=== PATIENT | female | born 1965 | race Caucasian/White ===

== ENCOUNTER 2017-07-11 15:41 | Inpatient (IN) | payer OTHER, MEDICARE ==
[~2017-07-11] VITALS: Ht 167.6 cm; Wt 86.5 kg
[~2017-07-11 15:41] MED LIST: AMBI5TAB PO; Aquaphor Oint TOPICAL; FAMO20TA2 PO; HALO5TAB PO; Lactic Acid 12% Lotion TOPICAL; PALI156P IM
[2017-07-11 20:41] VITALS: BP 133/69; PULSE 100; RESP 17; TEMP 98.7; O2SAT 96
[2017-07-11] MEDS ORDERED: LORazepam 2 MG/ML VIAL IM PRN (21:15)
[2017-07-11] MEDS ORDERED: MAGNESIUM HYDROXIDE SUSP 30 ML CUP PO PRN (21:15)
[2017-07-11] MEDS ORDERED: BENZTROPINE MESYLATE 1 MG TAB PO PRN (21:15)
[2017-07-11] MEDS ORDERED: BENZTROPINE MESYLATE 2 MG/2 ML VIAL IM PRN (21:15)
[2017-07-11] MEDS ORDERED: FAMOTIDINE 20 MG TAB PO SCH (21:15)
[2017-07-11] MEDS ORDERED: PILL SPLITTER OTHER PRN (21:30)
[2017-07-11] MEDS: ENOXAPARIN SODIUM 100 MG/ML SYRINGE SQ SCH (23:42)
[2017-07-12 05:31] VITALS: BP 125/60; PULSE 89; RESP 16; TEMP 98.1; O2SAT 97
[2017-07-12 07:13] LABS: ALBUMIN 2.8 GM/DL (3.4-5.0); AST (GOT) 16 U/L (15-37); BICARBONATE 29.2 MEQ/L (21.0-32.0); BLOOD UREA NITROGEN 5 MG/DL (7-18); CALCIUM 8.6 MG/DL (8.5-10.1); CHLORIDE 107 MEQ/L (98-107); CREATININE 0.44 MG/DL (0.50-1.00); GLOMERULAR FILTRATION RATE 151 ML/MIN (>89); GLUCOSE,RANDOM 95 MG/DL (74-106); SODIUM (NA) 140 MEQ/L (136-145)
[2017-07-12 07:15] LABS: ALT (GPT) 20 U/L (10-53); CHOLESTEROL 138 MG/DL (120-200); TRIGLYCERIDES 86 MG/DL (42-150)
[2017-07-12 07:17] LABS: ALKALINE PHOSPHATASE 49 U/L (45-117); CHOLESTEROL/ HDL RATIO 2.82 RATIO; HDL CHOLESTEROL 48.9 MG/DL (40.0-60.0); LDL CHOLESTEROL 72 MG/DL (0-99); TOTAL BILIRUBIN ADULT 0.7 MG/DL (0.2-1.0); TOTAL PROTEIN 6.1 GM/DL (6.4-8.2)
[2017-07-12 07:17] LABS: AUTOMATED NEUTROPHIL # 2.9 TH/MM3 (1.8-7.7); BASOPHIL % 0.4 % (0.0-2.0); EOSINOPHIL # 0.1 TH/MM3 (0-0.4); EOSINOPHIL % 1.8 % (0.0-4.0); HEMATOCRIT 33.4 % (35.0-46.0); HEMOGLOBIN 11.4 GM/DL (11.6-15.3); LYMPH % 25.9 % (9.0-44.0); LYMPHOCYTE # 1.1 TH/MM3 (1.0-4.8); MEAN CELL VOLUME 89.5 FL (80.0-100.0); MEAN CORPUSCULAR HEMOGLOBIN 30.5 PG (27.0-34.0); MEAN CORPUSCULAR HGB CONC 34.1 % (32.0-36.0); MEAN PLATELET VOLUME 8.4 FL (7.0-11.0); MONO % 5.5 % (0.0-8.0); MONOCYTE # 0.2 TH/MM3 (0-0.9); NEUT % 66.4 % (16.0-70.0); PLATELET COUNT 269 TH/MM3 (150-450); RED BLOOD COUNT 3.73 MIL/MM3 (4.00-5.30); RED CELL DISTRIBUTION WIDTH 14.7 % (11.6-17.2); WHITE BLOOD COUNT 4.4 TH/MM3 (4.0-11.0)
[2017-07-12] MEDS: HALOPERIDOL 5 MG TAB PO SCH ×2 (09:10→21:25)
[2017-07-12] MEDS: ENOXAPARIN SODIUM 100 MG/ML SYRINGE SQ SCH ×2 (09:23→21:26)
--- NOTE | 2017-07-12 09:50 | PD.CONS ---
HPI Service [facility] Hospitalists Consult Requested By Dr. Bryant. Reason for Consult Medical management Primary Care Physician Unknown Diagnoses: (1) Deep venous thrombosis of left upper extremity (2) Psychosis not due to substance or known physiological condition (3) HER2-positive carcinoma of right breast History of Present Illness 52-year-old female with a medical history significant for schizophrenia, right breast cancer undergoing chemotherapy treatment admitted to the med/psych unit for decompensation of psychiatric symptoms. Hospitalist service consulted for medical management. The patient is a very poor historian. Records extensively reviewed. Apparently she was admitted to [facility] for left upper extremity swelling. She was found to have a DVT and was started on Lovenox. They are reports that she was living at an [facility] but was also homeless for a few days prior to developing the swelling. The patient reports she has been getting treatment for the breast cancer and her next treatment is reportedly around 14 July. Patient is currently in the psychiatric unit. She is unable to add much to the history. She has pressured speech and appear to be in a manic state. Review of Systems ROS Limitations: Clinical Condition, Poor Historian Constitutional: DENIES: Fever, Chills Respiratory: DENIES: Cough, Shortness of breath Cardiovascular: DENIES: Chest pain, Palpitations Gastrointestinal: DENIES: Abdominal pain Musculoskeletal: COMPLAINS OF: Muscle aches Psychiatric: COMPLAINS OF: Mood changes Past Family Social History Allergies: Coded Allergies: No Known Allergies (Unverified , 05/25/17) Past Medical History Schizophrenia HER-2/shirley positive breast cancer on the right side Past Surgical History Breast mass biopsy Port placement Family History Unable to obtain Social History Patient reports that he smokes tobacco. Denies alcohol or illicit drug use. Physical Exam Vital Signs Vital Signs Date Time Temp Pulse Resp B/P (MAP) Pulse Ox O2 Delivery O2 Flow Rate FiO2 07/12/17 05:31 98.1 89 16 125/60 (81) 97 07/11/17 20:41 98.7 100 17 133/69 (90) 96 Physical Exam GENERAL: This is a well-nourished, well-developed patient, in no apparent distress. Pressure at speech SKIN: Multiple excoriation involving the left forearm. Cool and dry. HEAD: Atraumatic. Normocephalic. No temporal or scalp tenderness. EYES: Pupils equal round and reactive. Extraocular motions intact. No scleral icterus. No injection or drainage. ENT: Nose without bleeding, purulent drainage or septal hematoma. Throat without erythema, tonsillar hypertrophy or exudate. Uvula midline. Airway patent. NECK: Trachea midline. No JVD or lymphadenopathy. Supple, nontender, no meningeal signs. CARDIOVASCULAR: Regular rate and rhythm without murmurs, gallops, or rubs. RESPIRATORY: Clear to auscultation. Breath sounds equal bilaterally. No wheezes , rales, or rhonchi. GASTROINTESTINAL: Abdomen soft, non-tender, nondistended. No hepato-splenomegaly , or palpable masses. No guarding. MUSCULOSKELETAL: Extensive left upper extremity swelling. Neurovascularly intact at the hand. Range of motion at the elbow normal. No calf tenderness. Negative Homans sign bilaterally. NEUROLOGICAL: Awake and alert. Motor and sensory grossly within normal limits. Five out of 5 muscle strength in all muscle groups. Normal speech. PSYCH: Pressure speech. Laboratory Laboratory Tests Test 07/12/17 06:13 07/12/17 06:15 White Blood Count 4.4 Red Blood Count 3.73 Hemoglobin 11.4 Hematocrit 33.4 Mean Corpuscular Volume 89.5 Mean Corpuscular Hemoglobin 30.5 Mean Corpuscular Hemoglobin Concent 34.1 Red Cell Distribution Width 14.7 Platelet Count 269 Mean Platelet Volume 8.4 Neutrophils (%) (Auto) 66.4 Lymphocytes (%) (Auto) 25.9 Monocytes (%) (Auto) 5.5 Eosinophils (%) (Auto) 1.8 Basophils (%) (Auto) 0.4 Neutrophils # (Auto) 2.9 Lymphocytes # (Auto) 1.1 Monocytes # (Auto) 0.2 Eosinophils # (Auto) 0.1 Basophils # (Auto) 0.0 CBC Comment DIFF FINAL Differential Comment Blood Urea Nitrogen 5 Creatinine 0.44 Random Glucose 95 Total Protein 6.1 Albumin 2.8 Calcium Level 8.6 Alkaline Phosphatase 49 Aspartate Amino Transf (AST/SGOT) 16 Alanine Aminotransferase (ALT/SGPT) 20 Total Bilirubin 0.7 Sodium Level 140 Potassium Level 3.4 Chloride Level 107 Carbon Dioxide Level 29.2 Anion Gap 4 Estimat Glomerular Filtration Rate 151 Triglycerides Level 86 Cholesterol Level 138 LDL Cholesterol 72 HDL Cholesterol 48.9 Cholesterol/HDL Ratio 2.82 Result Diagram: 07/12/1713 07/12/1715 Assessment and Plan Problem List: (1) HER2-positive carcinoma of right breast ICD Code: C50.911 - Malignant neoplasm of unspecified site of right female breast (2) Deep venous thrombosis of left upper extremity ICD Code: I82.622 - Acute embolism and thrombosis of deep veins of left upper extremity (3) Psychosis not due to substance or known physiological condition ICD Code: F29 - Unspecified psychosis not due to a substance or known physiological condition Assessment and Plan 52-year-old female admitted to the med psych unit for psychosis and recent diagnosis of left upper extremity DVT in the setting of right breast cancer. Psychosis/schizophrenia: - Management per psychiatry DVT of left upper extremity: - Patient has been started on Lovenox 90 mg subcutaneous every 12 hours. - Consult hematology/oncology for further input. HER-2 positive carcinoma of the right breast: - Patient apparently has had a few cycle of chemotherapy. It is unclear if she has been follow-up as recommended. It is noted she was discharged from the hospital a couple of weeks ago. - Consult oncologist. Given her social situation, need to ensure she is getting her therapy accordingly. Hypokalemia: Mild. - Replace and monitor GI prophylaxis: Stool softener PRN constipation. DVT PPx: Lovenox We'll continue to follow. Michelle Tejada MD Jul 12, 2017 09:50
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
[2017-07-12] MEDS ORDERED: POTASSIUM CHLORIDE 20 MEQ CONTROLLED RELEASE TAB PO ONE (12:30)
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
[2017-07-12 16:16] LABS: HEMOGLOBIN A1C 5.8 % (4.3-6.0)
[2017-07-12 18:04] VITALS: BP 129/64; PULSE 99; RESP 18; TEMP 98.6; O2SAT 99
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
[2017-07-12] MEDS: ZOLPIDEM TARTRATE 5 MG TAB PO PRN (21:25)
[2017-07-13 06:16] VITALS: BP 119/60; PULSE 91; RESP 16; TEMP 98; O2SAT 96
[2017-07-13 06:59] LABS: HEMATOCRIT 35.1 % (35.0-46.0); HEMOGLOBIN 11.8 GM/DL (11.6-15.3); MEAN CELL VOLUME 89.9 FL (80.0-100.0); MEAN CORPUSCULAR HEMOGLOBIN 30.3 PG (27.0-34.0); MEAN CORPUSCULAR HGB CONC 33.7 % (32.0-36.0); MEAN PLATELET VOLUME 7.8 FL (7.0-11.0); PLATELET COUNT 278 TH/MM3 (150-450); RED BLOOD COUNT 3.91 MIL/MM3 (4.00-5.30); RED CELL DISTRIBUTION WIDTH 15.3 % (11.6-17.2); WHITE BLOOD COUNT 5.3 TH/MM3 (4.0-11.0)
[2017-07-13 07:24] LABS: BICARBONATE 26.9 MEQ/L (21.0-32.0); CALCIUM 8.6 MG/DL (8.5-10.1); CREATININE 0.41 MG/DL (0.50-1.00)
[2017-07-13] MEDS: HALOPERIDOL 5 MG TAB PO SCH ×2 (08:06→21:00)
--- NOTE | 2017-07-13 09:20 | HHI.PR ---
Subjective Remarks in no acute distress. complaining of pain to the left arm. no fever. Objective Vitals Vital Signs Date Time Temp Pulse Resp B/P (MAP) Pulse Ox O2 Delivery O2 Flow Rate FiO2 07/13/17 06:16 98.0 91 16 119/60 (79) 96 07/12/17 18:04 98.6 99 18 129/64 (85) 99 I/O 07/12/17 07/12/17 07/12/17 07/13/17 07/13/17 07/13/17 07:00 15:00 23:00 07:00 15:00 23:00 Intake Total 480 ml 1200 ml 0 ml 480 ml Balance 480 ml 1200 ml 0 ml 480 ml Intake Oral 480 ml 1200 ml 0 ml 480 ml # Voids 2 1 Result Diagram: 07/13/17 0625 07/13/17 0625 Objective Remarks GENERAL: This is a well-nourished, well-developed patient, in no apparent distress. CARDIOVASCULAR: Regular rate and regular rhythm without murmurs, gallops, or rubs. RESPIRATORY: Clear to auscultation. Breath sounds equal bilaterally. No wheezes , rales, or rhonchi. GASTROINTESTINAL: Abdomen soft, non-tender, nondistended. Normal, active bowel sounds MUSCULOSKELETAL: left arm is swollen/ right toe is with some erythema and tenderness NEURO: Alert & Oriented x4 to person, place, time, situation. Moves all ext x4 Medications and IVs Inpatient Medications Acetaminophen (Tylenol) 650 mg Q4H PRN PO Pain 1-5 or Temp >101F; Start at 21:15 Al Hydrox/Mg Hydrox/Simethicone (Mag-Al Plus Susp Liq) 30 ml Q6H PRN PO DYSPEPSIA; Start 07/11/17 at 21:15 Benztropine Mesylate (Cogentin Inj) 1 mg Q12H PRN IM EXTRA PYRAMIDAL SYMPTOMS; Start 07/11/17 at 21:15 Benztropine Mesylate (Cogentin) 1 mg Q12H PRN PO EXTRA PYRAMIDAL SYMPTOMS; Start 07/11/17 at 21:15 Enoxaparin Sodium (Lovenox Inj) 90 mg Q12H SQ Last administered on 07/12/17at 21 :26; Start 07/11/17 at 22:00 Famotidine (Pepcid) 20 mg ONCE PO ; Start 07/11/17 at 21:15; Stop 07/11/17 at 23 :59; Status DC Haloperidol (Haldol) 7.5 mg BID PO Last administered on 07/13/17at 08:06; Start 07/12/17 at 09:00 Lorazepam (Ativan Inj) 1 mg Q6H PRN IM MODERATE TO SEVERE ANXIETY; Start at 21:15 Lorazepam (Ativan) 1 mg Q6H PRN PO MODERATE TO SEVERE ANXIETY; Start 07/11/17 at 21:15 Magnesium Hydroxide (Milk Of Magnesia Liq) 30 ml DAILY PRN PO CONSTIPATION; Start 07/11/17 at 21:15 Miscellaneous (Pill Splitter) 1 ea UNSCH PRN OTHER SEE LABEL COMMENTS; Start at 21:30 Nicotine (Habitrol 21 Mg Patch.24 Hr) 1 patch DAILY PRN T-DERMAL nicotine craving; Start 07/11/17 at 21:15 Oxycodone/ Acetaminophen (Percocet 5-325 Mg) 1 tab Q6H PRN PO PAIN 6-10; Start 07/11/17 at 21:15 Potassium Chloride (KCl) 20 meq ONCE ONCE PO Last administered on 07/12/17at 12 :47; Start 07/12/17 at 12:30; Stop 07/12/17 at 12:31; Status DC Zolpidem Tartrate (Ambien) 5 mg HS PRN PO INSOMNIA Last administered on at 21:25; Start 07/11/17 at 21:15 A/P Problem List: (1) HER2-positive carcinoma of right breast ICD Code: C50.911 - Malignant neoplasm of unspecified site of right female breast (2) Deep venous thrombosis of left upper extremity ICD Code: I82.622 - Acute embolism and thrombosis of deep veins of left upper extremity (3) Psychosis not due to substance or known physiological condition ICD Code: F29 - Unspecified psychosis not due to a substance or known physiological condition Assessment and Plan Psychosis/schizophrenia: - Management per psychiatry DVT of left upper extremity: - Patient has been started on Lovenox 90 mg subcutaneous every 12 hours. - hematology consult appreciated; venous doppler of the left upper extremity pending. HER-2 positive carcinoma of the right breast: - Patient apparently has had a few cycle of chemotherapy. It is unclear if she has been follow-up as recommended. It is noted she was discharged from the hospital a couple of weeks ago. - oncology consult appreciated. mild cellulitis of the right great toe - strat Keflex and monitor the response. Hypokalemia:replaced. GI prophylaxis: Stool softener PRN constipation. DVT PPx: Lovenox Kailey Howard MD Jul 13, 2017 09:20
[2017-07-13] MEDS: ENOXAPARIN SODIUM 100 MG/ML SYRINGE SQ SCH ×2 (10:05→21:16)
--- NOTE | 2017-07-13 10:05 | RADRPT ---
EXAM DATE/TIME: 07/13/2017 09:19 [facility] COMPARISON: US ARM RIGHT, June 20, 2017, 21:27. INDICATIONS : Follow up size of enlarged lymph node post chemotherapy. MEDICAL HISTORY : Hearing loss. Anxiety. Right breast cancer. Chemotherapy. Psychosis. SURGICAL HISTORY : Jaw surgery. ENCOUNTER: Subsequent ACUITY: 3 weeks PAIN SCORE: 0/10 LOCATION: Right axilla. AREA EVALUATED: Right axilla. FINDINGS: A targeted ultrasound examination was performed in the right axilla and now demonstrates that the pat hologic lymph node measures 1.7 x 0.9 1.6 cm and is smaller in size than on the prior study where thi s measured 3.2 x 2.2 x 1.1 cm. Lymph node does not have a normal fatty hilum. CONCLUSION: Interval decrease in the size of the enlarged axillary lymph node. Jayden Brunner MD on July 13, 2017 at 10:01 Board Certified Radiologist. This report was verified electronically.
--- NOTE | 2017-07-13 10:11 | RADRPT ---
EXAM DATE/TIME: 07/13/2017 09:22 [facility] COMPARISON: No previous studies available for comparison. INDICATIONS : Left arm swelling. Prior DVT in left arm. MEDICAL HISTORY : Deep venous thrombosis. Hearing loss. Anxiety. Right breast cancer. Chemotherapy. Psychosis. SURGICAL HISTORY : Jaw surgery. ENCOUNTER: Initial ACUITY: 1 day PAIN SCORE: 0/10 LOCATION: Left arm. FINDINGS: Occlusive thrombus is present in the subclavian, axillary and proximal to distal basilic vein. This i s noncompressible and demonstrates no waveform. Edematous tissue is noted in the arm. The brachial an d cephalic veins are patent. The internal jugular vein is patent. CONCLUSION: Left upper extremity deep venous thrombosis.. Jayden Brunner MD on July 13, 2017 at 10:06 Board Certified Radiologist. This report was verified electronically.
--- NOTE | 2017-07-13 11:25 | HHI.PYPN ---
Subjective Remarks Patient seen for follow-up, chart reviewed. Discussion she staff reported the patient had ultrasound today of DVT of left arm and was compliant, patient scheduled for chemotherapy this Monday. Patient was found lying in hospital bed , cooperative. Patient noted to be somewhat [place] but was able to wake up and interact appropriately. Patient states that he is feeling "good" reports sleeping well, reports tolerating medications well. Patient noted to be able to engage in interview appropriately, noted with less pressured speech, denying any perceptual disturbances or delusions at this time. Patient states that her thought processes improving stating "I'm slowing down". Patient aware of upcoming treatment tomorrow for chemotherapy. Review of Systems Except as stated in HPI: all other systems reviewed are Neg Mental Status Examination Appearance: Appropriate Consciousness: Alert Orientation: Person, Place, Date/Time Motor Activity: Normal gait Speech: Pressured Language: Adequate Fund of Knowledge: Inadequate Attention and Concentration: Easily Distracted Memory: Impaired Mood: Irritable (SL today) Affect: Labile (SL today) Thought Process & Associations: Disorganized, Tangential Thought Content: Other (concrete) Hallucination Type: None Delusion Type: Bizarre Suicidal Ideation: No Suicidal Plan: No Suicidal Intention: No Homicidal Ideation: No Homicidal Plan: No Homicidal Intention: No Insight: Poor Judgment: Poor Results Labs Labs reviewed Test 07/13/17 06:25 White Blood Count 5.3 TH/MM3 Red Blood Count 3.91 MIL/MM3 Hemoglobin 11.8 GM/DL Hematocrit 35.1 % Mean Corpuscular Volume 89.9 FL Mean Corpuscular Hemoglobin 30.3 PG Mean Corpuscular Hemoglobin Concent 33.7 % Red Cell Distribution Width 15.3 % Platelet Count 278 TH/MM3 Mean Platelet Volume 7.8 FL Blood Urea Nitrogen 9 MG/DL Creatinine 0.41 MG/DL Random Glucose 94 MG/DL Calcium Level 8.6 MG/DL Sodium Level 141 MEQ/L Potassium Level 4.1 MEQ/L Chloride Level 107 MEQ/L Carbon Dioxide Level 26.9 MEQ/L Anion Gap 7 MEQ/L Estimat Glomerular Filtration Rate 164 ML/MIN Vitals/IOs Vital Signs Date Time Temp Pulse Resp B/P (MAP) Pulse Ox O2 Delivery O2 Flow Rate FiO2 07/13/17 06:16 98.0 91 16 119/60 (79) 96 Intake and Output 2/06/2907/13/17 07/14/17 08:00 16:00 00:00 Intake Total 0 ml 480 ml Balance 0 ml 480 ml Assessment & Plan Problem List: (1) Psychosis not due to substance or known physiological condition ICD Codes: F29 - Unspecified psychosis not due to a substance or known physiological condition Assessment & Plan Patient at this time noted to have improvement in mood, less tangential and perseverative, noted to be more engaged and appropriate today. We'll continue current treatment. Continue to monitor mood and behavior. Continue medical recommendations. Patient scheduled for chemotherapy tomorrow. Results of ultrasound pending. Discharge planning in progress Justification for Cont. Inpt. At risk for further decompensation if at lower level of care Discharge Planning To be determined Yadiel Enamorado MD Jul 13, 2017 11:25
[2017-07-13] MEDS: CEPHALEXIN MONOHYDRATE 500 MG CAP PO SCH ×2 (11:55→17:27)
[2017-07-13] MEDS ORDERED: LORazepam 2 MG/ML VIAL IV PRN (16:00)
[2017-07-13 18:06] VITALS: BP 115/94; PULSE 70; RESP 16; O2SAT 97
[2017-07-14 05:08] VITALS: BP 127/61; PULSE 84; RESP 16; TEMP 98.1; O2SAT 100
[2017-07-14] MEDS: CEPHALEXIN MONOHYDRATE 500 MG CAP PO SCH ×2 (06:00)
[2017-07-14] MEDS: ENOXAPARIN SODIUM 100 MG/ML SYRINGE SQ SCH ×2 (08:16→21:05)
[2017-07-14] MEDS: HALOPERIDOL 5 MG TAB PO SCH ×2 (08:16→20:37)
--- NOTE | 2017-07-14 08:35 | HHI.PR ---
Subjective Remarks in no acute distress. pain to the left arm is better. complaining of pain to the left great toe. no fever. d/w the RN. Objective Vitals Vital Signs Date Time Temp Pulse Resp B/P (MAP) Pulse Ox O2 Delivery O2 Flow Rate FiO2 07/14/17 07:24 07/14/17 05:08 98.1 84 16 127/61 (83) 100 07/13/17 18:06 70 16 115/94 (101) 97 I/O 07/13/17 07/13/17 07/13/17 07/14/17 07/14/17 07/14/17 07:00 15:00 23:00 07:00 15:00 23:00 Intake Total 0 ml 720 ml 1080 ml 240 ml 0 ml Balance 0 ml 720 ml 1080 ml 240 ml 0 ml Intake Oral 0 ml 720 ml 1080 ml 240 ml IV Total 0 ml # Voids 1 3 1 Result Diagram: 07/13/17 0625 07/13/17 0625 Imaging Last Impressions Upper Extremity Ultrasound 07/13/17 0000 Signed Impressions: Service Date/Time: July 09:19 - CONCLUSION: Interval decrease in the size of the enlarged axillary lymph node. Jayden Brunner MD Objective Remarks GENERAL: This is a well-nourished, well-developed patient, in no apparent distress. CARDIOVASCULAR: Regular rate and regular rhythm without murmurs, gallops, or rubs. RESPIRATORY: Clear to auscultation. Breath sounds equal bilaterally. No wheezes , rales, or rhonchi. GASTROINTESTINAL: Abdomen soft, non-tender, nondistended. Normal, active bowel sounds MUSCULOSKELETAL: left arm is swollen/ right toe is with some erythema and tenderness NEURO: Alert & Oriented x4 to person, place, time, situation. Moves all ext x4 Medications and IVs Inpatient Medications Acetaminophen (Tylenol) 650 mg Q4H PRN PO Pain 1-5 or Temp >101F; Start at 21:15 Al Hydrox/Mg Hydrox/Simethicone (Mag-Al Plus Susp Liq) 30 ml Q6H PRN PO DYSPEPSIA; Start 07/11/17 at 21:15 Benztropine Mesylate (Cogentin Inj) 1 mg Q12H PRN IM EXTRA PYRAMIDAL SYMPTOMS; Start 07/11/17 at 21:15 Benztropine Mesylate (Cogentin) 1 mg Q12H PRN PO EXTRA PYRAMIDAL SYMPTOMS; Start 07/11/17 at 21:15 Cephalexin Monohydrate (Keflex) 500 mg Q6HR PO Last administered on 07/14/17at 06 :00; Start 07/13/17 at 12:00 Enoxaparin Sodium (Lovenox Inj) 90 mg Q12H SQ Last administered on 07/14/17at 08: 16; Start 07/11/17 at 22:00 Famotidine (Pepcid) 20 mg ONCE PO ; Start 07/11/17 at 21:15; Stop 07/11/17 at 23 :59; Status DC Haloperidol (Haldol) 7.5 mg BID PO Last administered on 07/14/17at 08:16; Start 07/12/17 at 09:00 Lorazepam (Ativan Inj) 1 mg Q6H PRN IM MODERATE TO SEVERE ANXIETY; Start at 21:15 Lorazepam (Ativan) 1 mg Q6H PRN PO MODERATE TO SEVERE ANXIETY; Start 07/11/17 at 21:15 Magnesium Hydroxide (Milk Of Magnesia Liq) 30 ml DAILY PRN PO CONSTIPATION; Start 07/11/17 at 21:15 Miscellaneous (Pill Splitter) 1 ea UNSCH PRN OTHER SEE LABEL COMMENTS; Start at 21:30 Nicotine (Habitrol 21 Mg Patch.24 Hr) 1 patch DAILY PRN T-DERMAL nicotine craving; Start 07/11/17 at 21:15 Oxycodone/ Acetaminophen (Percocet 5-325 Mg) 1 tab Q6H PRN PO PAIN 6-10; Start 07/11/17 at 21:15 Potassium Chloride (KCl) 20 meq ONCE ONCE PO Last administered on 07/12/17at 12 :47; Start 07/12/17 at 12:30; Stop 07/12/17 at 12:31; Status DC Zolpidem Tartrate (Ambien) 5 mg HS PRN PO INSOMNIA Last administered on at 21:25; Start 07/11/17 at 21:15 A/P Problem List: (1) HER2-positive carcinoma of right breast ICD Code: C50.911 - Malignant neoplasm of unspecified site of right female breast (2) Deep venous thrombosis of left upper extremity ICD Code: I82.622 - Acute embolism and thrombosis of deep veins of left upper extremity (3) Psychosis not due to substance or known physiological condition ICD Code: F29 - Unspecified psychosis not due to a substance or known physiological condition Assessment and Plan Psychosis/schizophrenia: - Management per psychiatry DVT of left upper extremity: - Patient has been started on Lovenox 90 mg subcutaneous every 12 hours. - hematology consult appreciated. HER-2 positive carcinoma of the right breast: - Patient apparently has had a few cycle of chemotherapy. It is unclear if she has been follow-up as recommended. It is noted she was discharged from the hospital a couple of weeks ago. - oncology consult appreciated. cellulitis of the right great toe- not that much improvement on po Abx - check XR of the right great toe - change Keflex to IV Ancef -will monitor the response Hypokalemia:replaced. GI prophylaxis: Stool softener PRN constipation. DVT PPx: Lovenox Kailey Howard MD Jul 14, 2017 08:35
--- NOTE | 2017-07-14 10:58 | HHI.PYPN ---
Subjective Remarks Patient seen for follow-up, chart review. Discussion she staff reported the patient slept last night with no behavioral issues. Patient was found lying in hospital bed sleeping with able to wake up for interview but was superficially cooperative today. Patient states that she slept well last night, her mood as "good" denies any perceptual disturbances or delusions at this time is not noted to be hyperverbal or disorganized. Patient aware that she has chemotherapy infusion later today. Review of Systems Except as stated in HPI: all other systems reviewed are Neg Mental Status Examination Appearance: Appropriate Consciousness: Somnolent (somewhat today) Orientation: Person, Place, Date/Time Motor Activity: Normal gait Speech: Pressured Language: Adequate Fund of Knowledge: Inadequate Attention and Concentration: Adequate Memory: Impaired Mood: Irritable (slightly) Affect: Other (guarded) Thought Process & Associations: Linear, Other (concrete) Thought Content: Appropriate, Other (concrete) Hallucination Type: None Delusion Type: None Suicidal Ideation: No Suicidal Plan: No Suicidal Intention: No Homicidal Ideation: No Homicidal Plan: No Homicidal Intention: No Insight: Fair Judgment: Impulsive Results Vitals/IOs Vital Signs Date Time Temp Pulse Resp B/P (MAP) Pulse Ox O2 Delivery O2 Flow Rate FiO2 07/14/17 07:24 07/14/17 05:08 98.1 84 16 100 Intake and Output 07/14/17 07/14/17 07/15/17 08:00 16:00 00:00 Intake Total 240 ml 480 ml Balance 240 ml 480 ml Assessment & Plan Problem List: (1) Psychosis not due to substance or known physiological condition ICD Codes: F29 - Unspecified psychosis not due to a substance or known physiological condition Assessment & Plan Patient with no behavioral disturbances since admission, noted to have more organized thought process, less disorganization. Continue current treatment. Continue recommendations as per primary medical team. Patient scheduled for chemotherapy today. Discharge planning in progress Justification for Cont. Inpt. At risk for further decompensation if at lower level of care Discharge Planning To be determined Yadiel Enamorado MD Jul 14, 2017 10:57
--- NOTE | 2017-07-14 11:34 | RADRPT ---
EXAM DATE/TIME: 07/14/2017 10:34 [facility] COMPARISON: No previous studies available for comparison. INDICATIONS : Right 1st toe joint time, MEDICAL HISTORY : Deep venous thrombosis. Hearing loss. Anxiety. Right breast cancer. Smoker. SURGICAL HISTORY : Port placement. ENCOUNTER: Subsequent ACUITY: 1 month PAIN SCORE: 4/10 LOCATION: Right 1 st toe. FINDINGS: Examination of the first digit of the right foot demonstrates no evidence of fracture or dislocation. There is a small sharply marginated exostosis of the medial proximal first proximal phalanx. No radi opaque foreign bodies are seen. The soft tissues are intact. CONCLUSION: 1. Small exostosis of the toe. 2. No acute fracture or dislocation. Lj Clark MD on July 14, 2017 at 11:28 Board Certified Radiologist. This report was verified electronically.
[2017-07-14] MEDS: oxyCODONE/ACETAMINOPHEN 5 MG/325 MG TAB PO PRN (14:25)
--- NOTE | 2017-07-14 14:33 | PD.TTN ---
Patient Problems 1. Discharge planning 2. Medication compliance 3. Knowledge deficit 4. Lack of coping skills Progress Toward Goals Provider Present: Dr. Alex Enamorado Provider Input: 07/14/17 patient came from independent living at [facility] and appears not being able to return there - she can benefit from an GROUP HOME placement Psychiatric Counselors Present: Amanda Silva LCSW Psych Therapist Input: 07/14/17 patient refused to talk to this counselor twice yesterday, pretending to sleep she is reported by nurses to remain in bed without interacting and irritable Group Spec/RT/OT/DONATO Present: Onel Devi OT Group Spec/RT/OT/DONATO Input: 07/14/17 patient does not attend groups and does not tolerate groups Amanda Silva LCSW Jul 14, 2017 14:33
--- NOTE | 2017-07-14 14:58 | PD.ONC.PN ---
Subjective Subjective Remarks Afebrile overnight. Patient resting in room in [facility]. She is calm and without complaint. Objective Data Date Time Temp Pulse Resp B/P (MAP) Pulse Ox O2 Delivery O2 Flow Rate FiO2 07/14/17 11:14 07/14/17 07:24 07/14/17 05:08 98.1 84 16 127/61 (83) 100 07/13/17 18:06 70 16 115/94 (101) 97 07/14/17 07/14/17 07/14/17 07:00 15:00 23:00 Intake Total 240 ml 960 ml Balance 240 ml 960 ml Result Diagram: 07/13/17 0625 07/13/17 0625 Imaging Studies Last 24 hours Impressions Toe X-Ray 07/14/17 0000 Signed Impressions: Service Date/Time: Friday, July 14, 2017 10:34 - CONCLUSION: 1. Small exostosis of the toe. 2. No acute fracture or dislocation. Lj Clark MD Administered Medications Medications (Trade) Dose Ordered Sig/Renard Route PRN Reason Start Time Stop Time Status Last Admin Dose Admin Haloperidol (Haldol) 7.5 mg BID PO 07/12/17 09:00 07/14/17 08:16 Zolpidem Tartrate (Ambien) 5 mg HS PRN PO INSOMNIA 07/11/17 21:15 07/12/17 21:25 Enoxaparin Sodium (Lovenox Inj) 90 mg Q12H SQ 07/11/17 22:00 07/14/17 08:16 Oxycodone/ Acetaminophen (Percocet 5-325 Mg) 1 tab Q6H PRN PO PAIN 6-10 07/11/17 21:15 07/14/17 14:25 Objective Remarks GENERAL: Calm and pleasant middle aged female, sitting up in bed in [facility]. SKIN: Warm and dry. HEAD: Normocephalic. EYES: No injection or drainage. NECK: Supple, trachea midline. CARDIOVASCULAR: Regular rate and rhythm RESPIRATORY: Breath sounds equal bilaterally. No accessory muscle use. GASTROINTESTINAL: Abdomen soft, non-tender, nondistended. EXTREMITIES: No cyanosis NEUROLOGICAL: awake and alert, normal speech. moving all extremities. Assessment/Plan Problem List: (1) HER2-positive carcinoma of right breast ICD Codes: C50.911 - Malignant neoplasm of unspecified site of right female breast Plan: 07/14: continue weekly therapy with Taxol. does not need Herceptin this week, was given q3 weeks dosing in clinic. (2) Deep venous thrombosis of left upper extremity ICD Codes: I82.622 - Acute embolism and thrombosis of deep veins of left upper extremity Plan: --on therapeutic dose Lovenox If her left arm swelling does not respond to her low-molecular weight heparin we may have to remove the port. is likely given the nature of the catheter associated clots. Assessment 52y/o female with locally advanced HER2/shirley over expressing ER positive right breast cancer currently admitted for psychosis. 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 h/o Chemotherapy induced anemia. Plan 1. proceed with Taxol chemotherapy today 2. continue Lovenox. 3. monitor serial ultrasound of LUE Attending Statement The exam, history, and the medical decision-making described in the above note were completed with the assistance of the mid-level provider. I reviewed and agree with the findings presented. I attest that I had a [id number] encounter with the patient on the same day, and personally performed and documented my assessment and findings in the medical record. Appetite good. Cooperative. No nausea and vomiting. Weekly taxol continue. Clinically L arm DVT swelling improving, no bleeding on Lovenox. Clinical response confirmed by US R axilla. Next week Taxol is due. In 2 weeks Herceptin/Perjeta/Taxol is due. Discussed w/ Dr. Sewell if L arm do not improve on LMWH we will remove port. Hope to proceed with definitive surgery and removal of port in 6 weeks when chemotherapy finish. Idalia Disla Jul 14, 2017 14:58 Alexa Villareal MD Jul 14, 2017 18:47
[2017-07-14] MEDS ORDERED: FAMOTIDINE 20 MG TAB PO ONE (15:00)
[2017-07-14] MEDS ORDERED: DEXAMETHASONE INJ 10 MG in SODIUM CHLORIDE 0.9% INJ 50 ML IV ONE (15:00)
[2017-07-14] MEDS ORDERED: diphenhydrAMINE HCL 25 MG CAP PO ONE (15:00)
[2017-07-14] MEDS ORDERED: PACLITAXEL IV ONE ×2 (15:30→16:00)
[2017-07-14] MEDS ORDERED: SODIUM CHLOR 0.9% IV ONE ×2 (15:30→16:00)
[2017-07-14] MEDS ORDERED: FAMOTIDINE 20 MG TAB PO PRN (15:45)
[2017-07-14] MEDS ORDERED: diphenhydrAMINE HCL 25 MG CAP PO PRN (15:45)
[2017-07-14] MEDS ORDERED: LORazepam 2 MG/ML VIAL IV PUSH STA (15:52)
[2017-07-14 16:00] VITALS: BP 132/64; PULSE 88; RESP 16; TEMP 98.5; O2SAT 100
[2017-07-14] MEDS ORDERED: SODIUM CHLOR 0.9% 250 ML INJ 250 ML IV ONE (16:00)
[2017-07-14] MEDS ORDERED: DEXAMETHASONE INJ 10 MG in SODIUM CHLORIDE 0.9% INJ 50 ML IV PRN (16:00)
[2017-07-14] MEDS: ZOLPIDEM TARTRATE 5 MG TAB PO PRN (21:05)
[2017-07-15 06:00] VITALS: BP 126/69; PULSE 76; RESP 17; TEMP 97.5; O2SAT 97
[2017-07-15] MEDS: HALOPERIDOL 5 MG TAB PO SCH ×2 (08:33→21:48)
[2017-07-15] MEDS: ENOXAPARIN SODIUM 100 MG/ML SYRINGE SQ SCH ×2 (08:33→21:48)
--- NOTE | 2017-07-15 09:22 | HHI.PR ---
Subjective Remarks in no acute distress. afebrile. d/w the RN. Objective Vitals Vital Signs Date Time Temp Pulse Resp B/P (MAP) Pulse Ox O2 Delivery O2 Flow Rate FiO2 07/15/17 07:31 07/15/17 06:00 97.5 76 17 126/69 (88) 97 07/14/17 16:00 98.5 88 16 132/64 (86) 100 07/14/17 15:05 07/14/17 11:14 I/O 07/14/17 07/14/17 07/14/17 07/15/17 07/15/17 07/15/17 07:00 15:00 23:00 07:00 15:00 23:00 Intake Total 240 ml 960 ml 360 ml 720 ml Balance 240 ml 960 ml 360 ml 720 ml Intake Oral 240 ml 960 ml 360 ml 720 ml IV Total 0 ml # Voids 1 2 1 Result Diagram: 07/13/17 0625 07/13/17 0625 Imaging Last Impressions Toe X-Ray 07/14/17 0000 Signed Impressions: Service Date/Time: Friday, July 14, 2017 10:34 - CONCLUSION: 1. Small exostosis of the toe. 2. No acute fracture or dislocation. Lj Clark MD Upper Extremity Ultrasound 07/13/17 0000 Signed Impressions: Service Date/Time: July 09:19 - CONCLUSION: Interval decrease in the size of the enlarged axillary lymph node. Jayden Brunner MD Objective Remarks GENERAL: This is a well-nourished, well-developed patient, in no apparent distress. CARDIOVASCULAR: Regular rate and regular rhythm without murmurs, gallops, or rubs. RESPIRATORY: Clear to auscultation. Breath sounds equal bilaterally. No wheezes , rales, or rhonchi. GASTROINTESTINAL: Abdomen soft, non-tender, nondistended. Normal, active bowel sounds MUSCULOSKELETAL: left arm is swollen/ right toe is with some erythema and tenderness- seems to be improving. NEURO: Alert & Oriented x4 to person, place, time, situation. Moves all ext x4 Medications and IVs Inpatient Medications Acetaminophen (Tylenol) 650 mg Q4H PRN PO Pain 1-5 or Temp >101F; Start at 21:15 Al Hydrox/Mg Hydrox/Simethicone (Mag-Al Plus Susp Liq) 30 ml Q6H PRN PO DYSPEPSIA; Start 07/11/17 at 21:15 Benztropine Mesylate (Cogentin Inj) 1 mg Q12H PRN IM EXTRA PYRAMIDAL SYMPTOMS; Start 07/11/17 at 21:15 Benztropine Mesylate (Cogentin) 1 mg Q12H PRN PO EXTRA PYRAMIDAL SYMPTOMS; Start 07/11/17 at 21:15 Cefazolin Sodium 1000 mg/Sodium Chloride 100 ml @ 200 mls/hr Q8H IV Last administered on 07/15/17at 04:00; Start 07/14/17 at 12:00 Cephalexin Monohydrate (Keflex) 500 mg Q6HR PO Last administered on 07/14/17at 06 :00; Start 07/13/17 at 12:00; Stop 07/14/17 at 08:37; Status DC Dexamethasone Sodium Phosphate 10 mg/Sodium Chloride 52.5 ml @ 220 mls/hr ONCE ONCE IV Last administered on 07/14/17at 15:49; Start 07/14/17 at 15:00; Stop 07/14/17 at 15:14; Status DC Diphenhydramine HCl (Benadryl) 25 mg ONCE ONCE PO Last administered on at 15:49; Start 07/14/17 at 15:00; Stop 07/14/17 at 15:01; Status DC Enoxaparin Sodium (Lovenox Inj) 90 mg Q12H SQ Last administered on 07/15/17at 08: 33; Start 07/11/17 at 22:00 Famotidine (Pepcid) 20 mg ONCE ONCE PO Last administered on 07/14/17at 15:49; Start 07/14/17 at 15:00; Stop 07/14/17 at 15:01; Status DC Haloperidol (Haldol) 7.5 mg BID PO Last administered on 07/15/17at 08:33; Start 07/12/17 at 09:00 Lorazepam (Ativan Inj) 1 mg STAT STAT IV PUSH Last administered on 07/14/17at 16 :00; Start 07/14/17 at 15:52; Stop 07/14/17 at 15:53; Status DC Lorazepam (Ativan) 1 mg Q6H PRN PO MODERATE TO SEVERE ANXIETY; Start 07/11/17 at 21:15 Magnesium Hydroxide (Milk Of Magnesia Liq) 30 ml DAILY PRN PO CONSTIPATION; Start 07/11/17 at 21:15 Miscellaneous (Pill Splitter) 1 ea UNSCH PRN OTHER SEE LABEL COMMENTS; Start at 21:30 Nicotine (Habitrol 21 Mg Patch.24 Hr) 1 patch DAILY PRN T-DERMAL nicotine craving; Start 07/11/17 at 21:15 Oxycodone/ Acetaminophen (Percocet 5-325 Mg) 1 tab Q6H PRN PO PAIN 6-10 Last administered on 07/14/17at 14:25; Start 07/11/17 at 21:15 Paclitaxel 154.4 mg/Sodium Chloride 275.7333 ml @ 275.... ONCE ONCE IV Last administered on 07/14/17at 17:22; Start 07/14/17 at 16:00; Stop 07/14/17 at 16:59; Status DC Potassium Chloride (KCl) 20 meq ONCE ONCE PO Last administered on 07/12/17at 12 :47; Start 07/12/17 at 12:30; Stop 07/12/17 at 12:31; Status DC Sodium Chloride 250 ml @ 0 mls/hr ONCE ONCE IV Last administered on 07/14/17at 16:00; Start 07/14/17 at 16:00; Stop 07/14/17 at 16:01; Status DC Zolpidem Tartrate (Ambien) 5 mg HS PRN PO INSOMNIA Last administered on at 21:05; Start 07/11/17 at 21:15 A/P Problem List: (1) HER2-positive carcinoma of right breast ICD Code: C50.911 - Malignant neoplasm of unspecified site of right female breast (2) Deep venous thrombosis of left upper extremity ICD Code: I82.622 - Acute embolism and thrombosis of deep veins of left upper extremity (3) Psychosis not due to substance or known physiological condition ICD Code: F29 - Unspecified psychosis not due to a substance or known physiological condition Assessment and Plan Psychosis/schizophrenia: - Management per psychiatry DVT of left upper extremity: - Patient has been started on Lovenox 90 mg subcutaneous every 12 hours. - hematology consult appreciated. HER-2 positive carcinoma of the right breast: - Patient apparently has had a few cycle of chemotherapy. It is unclear if she has been follow-up as recommended. - oncology consult appreciated.chemo was started. cellulitis of the right great toe-seems to be improving. -continne IV Ancef -will monitor the response Hypokalemia:replaced. GI prophylaxis: Stool softener PRN constipation. DVT PPx: Kailey Galindo MD Jul 15, 2017 09:22
--- NOTE | 2017-07-15 11:29 | HHI.PYPN ---
Subjective Remarks Patient was seen today for psychiatric reevaluation. Case was discussed and seen with the nurse in charge. Chart reviewed. On psychiatric evaluation patient is found sleeping, but arousable. The patient is disorganized, tangential, with pronounced loosening of associations, but with redirection she can answer most of my questions correctly. She says that she has been sleeping poorly because she had been seen " people in the streets of [place]". She says that she doesn't want to go back to [place] "I am afraid of the want to kill me there". She is fully oriented 3, she has been compliant her medications, no significant side effects reported, there is no reports of agitation or hostility in the unit. Mental Status Examination Appearance: Appropriate Consciousness: Somnolent (somewhat today) Orientation: Person, Place, Date/Time Motor Activity: Normal gait Speech: Pressured Language: Adequate Fund of Knowledge: Inadequate Attention and Concentration: Adequate Memory: Impaired Mood: Irritable (slightly) Affect: Other (guarded) Thought Process & Associations: Linear, Other (concrete) Thought Content: Bizarre thinking, Other (concrete) Hallucination Type: None Delusion Type: None Suicidal Ideation: No Suicidal Plan: No Suicidal Intention: No Homicidal Ideation: No Homicidal Plan: No Homicidal Intention: No Insight: Fair Judgment: Impulsive Results Vitals/IOs Vital Signs Date Time Temp Pulse Resp B/P (MAP) Pulse Ox O2 Delivery O2 Flow Rate FiO2 07/15/17 11:17 07/15/17 06:00 97.5 76 17 97 Intake and Output 07/15/17 07/15/17 07/16/17 08:00 16:00 00:00 Intake Total 720 ml Balance 720 ml Assessment & Plan Problem List: (1) Psychosis not due to substance or known physiological condition ICD Codes: F29 - Unspecified psychosis not due to a substance or known physiological condition Assessment & Plan: Continue current psychotropic regimen. Assessment & Plan Estimated LOS: days Justification for Cont. Inpt. Patient is acutely psychotic, she needs to continue psychiatric hospitalization for stabilization. Palomo Pham MD Jul 15, 2017 11:29
[2017-07-15] MEDS: LORazepam 1 MG TAB PO PRN (16:08)
[2017-07-15 18:30] VITALS: BP 118/64; PULSE 69; RESP 17; TEMP 97.8; O2SAT 96
[2017-07-15] MEDS: SODIUM CHLORIDE 0.9% FLUSH 10 ML FLUSH IV FLUSH SCH (21:48)
[2017-07-16 06:25] VITALS: BP 122/60; PULSE 66; RESP 16; TEMP 97.8; O2SAT 98
--- NOTE | 2017-07-16 09:23 | HHI.PR ---
Subjective Remarks in no acute distress. no fever. pain to the right foot is better. Objective Vitals Vital Signs Date Time Temp Pulse Resp B/P (MAP) Pulse Ox O2 Delivery O2 Flow Rate FiO2 07/16/17 06:25 97.8 66 16 122/60 (80) 98 07/15/17 18:30 97.8 69 17 118/64 (82) 96 07/15/17 15:13 07/15/17 11:17 I/O 07/15/17 07/15/17 07/15/17 07/16/17 07/16/17 07/16/17 07:00 15:00 23:00 07:00 15:00 23:00 Intake Total 720 ml 480 ml 360 ml 120 ml 420 ml Balance 720 ml 480 ml 360 ml 120 ml 420 ml Intake Oral 720 ml 480 ml 360 ml 120 ml 420 ml # Voids 1 Result Diagram: 07/13/17 0625 07/13/17 0625 Imaging Last Impressions Toe X-Ray 07/14/17 0000 Signed Impressions: Service Date/Time: Friday, July 14, 2017 10:34 - CONCLUSION: 1. Small exostosis of the toe. 2. No acute fracture or dislocation. Lj Clark MD Upper Extremity Ultrasound 07/13/17 0000 Signed Impressions: Service Date/Time: July 09:19 - CONCLUSION: Interval decrease in the size of the enlarged axillary lymph node. Jayden Brunner MD Objective Remarks GENERAL: This is a well-nourished, well-developed patient, in no apparent distress. CARDIOVASCULAR: Regular rate and regular rhythm without murmurs, gallops, or rubs. RESPIRATORY: Clear to auscultation. Breath sounds equal bilaterally. No wheezes , rales, or rhonchi. GASTROINTESTINAL: Abdomen soft, non-tender, nondistended. Normal, active bowel sounds MUSCULOSKELETAL: left arm is swollen/ right toe is with some erythema and tenderness- seems to be improving. NEURO: Alert & Oriented x4 to person, place, time, situation. Moves all ext x4 Medications and IVs Inpatient Medications Acetaminophen (Tylenol) 650 mg Q4H PRN PO Pain 1-5 or Temp >101F; Start at 21:15 Al Hydrox/Mg Hydrox/Simethicone (Mag-Al Plus Susp Liq) 30 ml Q6H PRN PO DYSPEPSIA; Start 07/11/17 at 21:15 Benztropine Mesylate (Cogentin Inj) 1 mg Q12H PRN IM EXTRA PYRAMIDAL SYMPTOMS; Start 07/11/17 at 21:15 Benztropine Mesylate (Cogentin) 1 mg Q12H PRN PO EXTRA PYRAMIDAL SYMPTOMS; Start 07/11/17 at 21:15 Cefazolin Sodium 1000 mg/Sodium Chloride 100 ml @ 200 mls/hr Q8H IV Last administered on 07/16/17at 04:20; Start 07/14/17 at 12:00 Cephalexin Monohydrate (Keflex) 500 mg Q6HR PO Last administered on 07/14/17at 06 :00; Start 07/13/17 at 12:00; Stop 07/14/17 at 08:37; Status DC Dexamethasone Sodium Phosphate 10 mg/Sodium Chloride 52.5 ml @ 220 mls/hr ONCE ONCE IV Last administered on 07/14/17at 15:49; Start 07/14/17 at 15:00; Stop 07/14/17 at 15:14; Status DC Diphenhydramine HCl (Benadryl) 25 mg ONCE ONCE PO Last administered on at 15:49; Start 07/14/17 at 15:00; Stop 07/14/17 at 15:01; Status DC Enoxaparin Sodium (Lovenox Inj) 90 mg Q12H SQ Last administered on 07/15/17at 21: 48; Start 07/11/17 at 22:00 Famotidine (Pepcid) 20 mg ONCE ONCE PO Last administered on 07/14/17at 15:49; Start 07/14/17 at 15:00; Stop 07/14/17 at 15:01; Status DC Haloperidol (Haldol) 7.5 mg BID PO Last administered on 07/15/17at 21:48; Start 07/12/17 at 09:00 Lorazepam (Ativan Inj) 1 mg STAT STAT IV PUSH Last administered on 07/14/17at 16 :00; Start 07/14/17 at 15:52; Stop 07/14/17 at 15:53; Status DC Lorazepam (Ativan) 1 mg Q6H PRN PO MODERATE TO SEVERE ANXIETY Last administered on 2/3/18at 16:08; Start 07/11/17 at 21:15 Magnesium Hydroxide (Milk Of Magnesia Liq) 30 ml DAILY PRN PO CONSTIPATION; Start 07/11/17 at 21:15 Miscellaneous (Pill Splitter) 1 ea UNSCH PRN OTHER SEE LABEL COMMENTS; Start at 21:30 Nicotine (Habitrol 21 Mg Patch.24 Hr) 1 patch DAILY PRN T-DERMAL nicotine craving; Start 07/11/17 at 21:15 Oxycodone/ Acetaminophen (Percocet 5-325 Mg) 1 tab Q6H PRN PO PAIN 6-10 Last administered on 07/14/17at 14:25; Start 07/11/17 at 21:15 Paclitaxel 154.4 mg/Sodium Chloride 275.7333 ml @ 275.... ONCE ONCE IV Last administered on 07/14/17 17:22; Start 07/14/17 at 16:00; Stop 07/14/17 at 16:59; Status DC Potassium Chloride (KCl) 20 meq ONCE ONCE PO Last administered on 07/12/17at 12 :47; Start 07/12/17 at 12:30; Stop 07/12/17 at 12:31; Status DC Sodium Chloride (NS Flush) 2 ml BID IV FLUSH Last administered on 07/15/17at 21: 48; Start 07/15/17 at 21:00 Zolpidem Tartrate (Ambien) 5 mg HS PRN PO INSOMNIA Last administered on at 21:05; Start 07/11/17 at 21:15 A/P Problem List: (1) HER2-positive carcinoma of right breast ICD Code: C50.911 - Malignant neoplasm of unspecified site of right female breast (2) Deep venous thrombosis of left upper extremity ICD Code: I82.622 - Acute embolism and thrombosis of deep veins of left upper extremity (3) Psychosis not due to substance or known physiological condition ICD Code: F29 - Unspecified psychosis not due to a substance or known physiological condition Assessment and Plan Psychosis/schizophrenia: - Management per psychiatry DVT of left upper extremity: - Patient has been started on Lovenox 90 mg subcutaneous every 12 hours. - hematology consult appreciated. HER-2 positive carcinoma of the right breast: - Patient apparently has had a few cycle of chemotherapy. It is unclear if she has been follow-up as recommended. - oncology consult appreciated.chemo was started. cellulitis of the right great toe-seems to be improving. -continue IV Ancef -can be probably switched to po Keflex within the next 24 hrs if continues to improve. Hypokalemia:replaced. GI prophylaxis: Stool softener PRN constipation. DVT PPx: Kailey Galindo MD Jul 16, 2017 09:23
[2017-07-16] MEDS: HALOPERIDOL 5 MG TAB PO SCH ×2 (09:25→22:12)
[2017-07-16] MEDS: SODIUM CHLORIDE 0.9% FLUSH 10 ML FLUSH IV FLUSH SCH ×2 (09:26→22:12)
[2017-07-16] MEDS: ENOXAPARIN SODIUM 100 MG/ML SYRINGE SQ SCH ×2 (09:56→22:12)
--- NOTE | 2017-07-16 10:42 | HHI.PYPN ---
Subjective Remarks The patient was seen today for psychiatric reevaluation, the patient was found a little bit agitated and irritable after one of the patient of the unit got inside her room naked, however, she was able to be de-escalated verbally and redirected. She reports feeling better, denies any distress or pain, reports good mood, denies depression, denies suicidal and homicidal ideation, she denies visual and auditory hallucinations. The patient still disorganized, paranoid, she says that last night she became and she can feel 2 babies inside her belly. She is fully oriented 3, compliant with medications, no significant side effects Mental Status Examination Appearance: Appropriate Consciousness: Somnolent (somewhat today) Orientation: Person, Place, Date/Time Motor Activity: Normal gait Speech: Pressured Language: Adequate Fund of Knowledge: Inadequate Attention and Concentration: Adequate Memory: Impaired Mood: Irritable (slightly) Affect: Other (guarded) Thought Process & Associations: Linear, Other (concrete) Thought Content: Bizarre thinking, Other (concrete) Hallucination Type: None Delusion Type: None Suicidal Ideation: No Suicidal Plan: No Suicidal Intention: No Homicidal Ideation: No Homicidal Plan: No Homicidal Intention: No Insight: Fair Judgment: Impulsive Results Vitals/IOs Vital Signs Date Time Temp Pulse Resp B/P (MAP) Pulse Ox O2 Delivery O2 Flow Rate FiO2 07/16/17 06:25 97.8 66 16 122/60 (80) 98 Intake and Output 07/16/17 07/16/17 07/17/17 08:00 16:00 00:00 Intake Total 120 ml 420 ml Balance 120 ml 420 ml Assessment & Plan Problem List: (1) Psychosis not due to substance or known physiological condition ICD Codes: F29 - Unspecified psychosis not due to a substance or known physiological condition Assessment & Plan: Continue current psychotropic regimen. Brief supportive psychotherapy provided. Assessment & Plan Estimated LOS: days Justification for Cont. Inpt. She is acutely psychotic, she needs to continue psychiatric hospitalization for stabilization Palomo Pham MD Jul 16, 2017 10:42
[2017-07-16 18:29] VITALS: BP 104/56; PULSE 76; RESP 16; TEMP 98; O2SAT 97
[2017-07-17 05:00] VITALS: BP 103/55; PULSE 67; RESP 18; TEMP 97.8; O2SAT 99
[2017-07-17] MEDS: SODIUM CHLORIDE 0.9% FLUSH 10 ML FLUSH IV FLUSH SCH ×2 (09:00→20:41)
[2017-07-17] MEDS: HALOPERIDOL 5 MG TAB PO SCH ×2 (10:07→20:41)
[2017-07-17] MEDS: ENOXAPARIN SODIUM 100 MG/ML SYRINGE SQ SCH ×2 (10:07→20:41)
--- NOTE | 2017-07-17 10:59 | HHI.PR ---
Subjective Remarks Patient seen this morning around 9:30 AM. Sleeping, wakes up for exam. Says she feels fine. Denies any chest pain or shortness of breath. Reports no pain in feet. Objective Vital Signs Date Time Temp Pulse Resp B/P (MAP) Pulse Ox O2 Delivery O2 Flow Rate FiO2 07/17/17 05:00 97.8 67 18 103/55 (71) 99 07/16/17 18:29 98.0 76 16 104/56 (72) 97 I/O 07/16/17 07/16/17 07/16/17 07/17/17 07/17/17 07/17/17 07:00 15:00 23:00 07:00 15:00 23:00 Intake Total 761 ml 780 ml 500 ml 441 ml 240 ml Balance 761 ml 780 ml 500 ml 441 ml 240 ml Intake Oral 120 ml 780 ml 500 ml 240 ml IV Total 641 ml 441 ml # Voids 2 Result Diagram: 07/13/1762407/13/17624 Objective Remarks GENERAL: Patient sitting up SKIN: Warm and dry. HEAD: Normocephalic. EYES: No scleral icterus. No injection or drainage. NECK: Supple, trachea midline. No JVD or lymphadenopathy. CARDIOVASCULAR: Regular rate and rhythm without murmurs, gallops, or rubs. RESPIRATORY: Breath sounds equal bilaterally. No accessory muscle use. GASTROINTESTINAL: Abdomen soft, non-tender, nondistended. MUSCULOSKELETAL: No cyanosis, or edema. Erythema of right toe, mild. Some surrounding ecchymosis. BACK: Nontender without obvious deformity. No CVA tenderness. A/P Assessment and Plan //Psychosis/schizophrenia: - Management per psychiatry //DVT of left upper extremity: - Patient has been started on Lovenox 90 mg subcutaneous every 12 hours. - hematology following. //HER-2 positive carcinoma of the right breast: - Patient apparently has had a few cycle of chemotherapy. It is unclear if she has been follow-up as recommended. - oncology consult appreciated.chemo was started. // cellulitis of the right great toe-seems to be improving. -continue IV Ancef -can be probably switched to po Keflex within the next 24 hrs if continues to improve. = 2/5. Improving. Switched to by mouth Keflex. //Hypokalemia: Resolved after replacement. GI prophylaxis: Stool softener PRN constipation. DVT PPx: Lovenox Discharge Planning We will continue to follow Brendan Wahl MD Jul 17, 2017 10:59
--- NOTE | 2017-07-17 11:08 | PD.TTN ---
Patient Problems 1. Discharge planning 2. Medication compliance 3. Knowledge deficit 4. Lack of coping skills Progress Toward Goals Provider Present: Dr. Alex Enamorado Provider Input: 07/17/17 patient is receiving chemo and presenting different than last hospitalization which she was manic, now she is withdrawn and limited in talking and interacting 07/14/17 patient came from independent living at [facility] and appears not being able to return there - she can benefit from an [facility] placement Psychiatric Counselors Present: Amanda Silva LCSW Psych Therapist Input: 07/17/17 will work on SNF facilities and refer patient today, she remains uncooperative with this therapist 07/14/17 patient refused to talk to this counselor twice yesterday, pretending to sleep she is reported by nurses to remain in bed without interacting and irritable Group Spec/RT/OT/DONATO Present: LANIE Maurer Spec/RT/OT/DONATO Input: 07/17/17 does not attend group and does not tolerate 07/14/17 patient does not attend groups and does not tolerate groups Amanda Silva LCSW Jul 17, 2017 11:08
[2017-07-17] MEDS: CEPHALEXIN MONOHYDRATE 500 MG CAP PO SCH ×2 (12:00→18:00)
--- NOTE | 2017-07-17 12:38 | HHI.PYPN ---
Subjective Remarks Patient seen for follow-up, chart reviewed. Discussion nursing staff reported that patient was asking whether she was as she had not received her menses. Patient was found lying in hospital bed noted be guarded and superficially cooperative today. Patient states that her mood has been "okay" but feeling tired due to chemotherapy. Patient denies any perceptual disturbances , suicidal homicidal ideations. When asked patient believes she is patient states that she was simply asking because she was concerned that she had not received her menses but was reassured that patient likely not due to patient not having any recent sexual encounters as she affirmed. She denies any adverse drug reactions from current treatment. Review of Systems Except as stated in HPI: all other systems reviewed are Neg Mental Status Examination Appearance: Appropriate Consciousness: Alert Orientation: Person, Place, Date/Time Motor Activity: Normal gait Speech: Pressured Language: Adequate Fund of Knowledge: Inadequate Attention and Concentration: Adequate Memory: Impaired Mood: Irritable (slightly), Other Affect: Irritable, Other (guarded) Thought Process & Associations: Linear, Other (concrete) Thought Content: Bizarre thinking, Other (concrete) Hallucination Type: None Delusion Type: None Suicidal Ideation: No Suicidal Plan: No Suicidal Intention: No Homicidal Ideation: No Homicidal Plan: No Homicidal Intention: No Insight: Fair Judgment: Impulsive Results Vitals/IOs Vital Signs Date Time Temp Pulse Resp B/P (MAP) Pulse Ox O2 Delivery O2 Flow Rate FiO2 07/17/17 05:00 97.8 67 18 103/55 (71) 99 Intake and Output 07/17/17 07/17/17 07/18/17 08:00 16:00 00:00 Intake Total 681 ml Balance 681 ml Assessment & Plan Problem List: (1) Psychosis not due to substance or known physiological condition ICD Codes: F29 - Unspecified psychosis not due to a substance or known physiological condition Assessment & Plan Patient this time continues with occasional bizarre statements but not noted to have any gross psychotic behavior. Continue current treatment. Continue recommendations as per primary medical team. Discharge planning in progress Justification for Cont. Inpt. At risk for further decompensation if at lower level of care Discharge Planning To be determined Yadiel Enamorado MD Jul 17, 2017 12:37
[2017-07-17 18:00] VITALS: BP 121/57; PULSE 75; RESP 16; TEMP 98.1; O2SAT 98
[2017-07-17] MEDS: ZOLPIDEM TARTRATE 5 MG TAB PO PRN (20:41)
[2017-07-17] MEDS: ACETAMINOPHEN 325 MG TAB PO PRN (20:42)
[2017-07-18] MEDS: CEPHALEXIN MONOHYDRATE 500 MG CAP PO SCH ×4 (01:06→18:00)
[2017-07-18 06:00] VITALS: BP 115/67; PULSE 69; RESP 16; TEMP 97.8; O2SAT 98
[2017-07-18] MEDS: SODIUM CHLORIDE 0.9% FLUSH 10 ML FLUSH IV FLUSH SCH ×2 (09:00→21:00)
--- NOTE | 2017-07-18 10:09 | HHI.PR ---
Subjective Remarks felt warm overnight no documented fever by nursing, but she felt warm itching and redness around the port - stated she noticed it last night and maybe the day before last chemo was Monday port was placed 06/13/[address] López Objective Vitals Vital Signs Date Time Temp Pulse Resp B/P (MAP) Pulse Ox O2 Delivery O2 Flow Rate FiO2 07/18/17 06:00 97.8 69 16 115/67 (83) 98 07/17/17 18:00 98.1 75 16 121/57 (78) 98 I/O 07/17/17 07/17/17 07/17/17 07/18/17 07/18/17 07/18/17 07:00 15:00 23:00 07:00 15:00 23:00 Intake Total 441 ml 1200 ml 1200 ml 240 ml 360 ml Output Total 2 ml Balance 441 ml 1200 ml 1200 ml 238 ml 360 ml Intake Oral 1200 ml 1200 ml 240 ml 360 ml IV Total 441 ml Output Urine Total 2 ml # Voids 2 Objective Remarks awake, alert, pleasant, repeats sentences as though to remind herself skin- redness and itching (mild) around Left chest mediport site. LUE with multiple skin blisters healing heart rate is regular, no murmur abdomen soft and non tender, no rebound, no guarding lung sounds are clear, equal bilaterally no calf asymmetry or edema, non tender calf, LUE significantly bigger the RUE A/P Problem List: (1) HER2-positive carcinoma of right breast ICD Code: C50.911 - Malignant neoplasm of unspecified site of right female breast (2) Deep venous thrombosis of left upper extremity ICD Code: I82.622 - Acute embolism and thrombosis of deep veins of left upper extremity (3) Psychosis not due to substance or known physiological condition ICD Code: F29 - Unspecified psychosis not due to a substance or known physiological condition Assessment and Plan Impression/ Plan: schizophrenia - per psychiatry LUE DVT on lovenox therapeutic dose ; serial US per hematology, if no improvement of LUE by US on LMWH, Dr Sewell planned to remove port (likely in 6 weeks when chemo finish) redness and itching around port site- will monitor for evidence of infection on chemo patient toe cellulitis- resolving, was on cefazolin, now switched to keflex HER 2 shirley positive R breast CA- on chemo- last dose 07/14/17 - planned taxol every week with Dr Villareal. hypokalemia - resolved GI prophylaxis with lovenox Lucita Valentin MD Jul 18, 2017 10:09
[2017-07-18] MEDS: HALOPERIDOL 5 MG TAB PO SCH ×2 (10:40→21:15)
[2017-07-18] MEDS: ENOXAPARIN SODIUM 100 MG/ML SYRINGE SQ SCH ×2 (10:42→21:09)
[2017-07-18 10:52] LABS: AUTOMATED NEUTROPHIL # 1.7 TH/MM3 (1.8-7.7); BASOPHIL % 0.8 % (0.0-2.0); EOSINOPHIL # 0.1 TH/MM3 (0-0.4); HEMATOCRIT 37.2 % (35.0-46.0); HEMOGLOBIN 12.8 GM/DL (11.6-15.3); LYMPH % 31.8 % (9.0-44.0); LYMPHOCYTE # 0.9 TH/MM3 (1.0-4.8); MEAN CELL VOLUME 89.6 FL (80.0-100.0); MEAN CORPUSCULAR HEMOGLOBIN 30.7 PG (27.0-34.0); MEAN CORPUSCULAR HGB CONC 34.2 % (32.0-36.0); MEAN PLATELET VOLUME 8.4 FL (7.0-11.0); MONOCYTE # 0.1 TH/MM3 (0-0.9); NEUT % 60.4 % (16.0-70.0); PLATELET COUNT 301 TH/MM3 (150-450); RED BLOOD COUNT 4.16 MIL/MM3 (4.00-5.30); RED CELL DISTRIBUTION WIDTH 15.2 % (11.6-17.2); WHITE BLOOD COUNT 2.8 TH/MM3 (4.0-11.0)
[2017-07-18 11:24] LABS: ALBUMIN 3.1 GM/DL (3.4-5.0); BICARBONATE 30.8 MEQ/L (21.0-32.0); CREATININE 0.55 MG/DL (0.50-1.00); MAGNESIUM 1.9 MG/DL (1.5-2.5); PHOSPHORUS 2.7 MG/DL (2.5-4.9)
--- NOTE | 2017-07-18 12:35 | HHI.PYPN ---
Subjective Remarks Patient was seen today for psychiatric reevaluation along with the nurse in charge and medical student Dr. Barrientos. Chart was reviewed. Psychiatric evaluation today the patient is found sleeping, but she is easily arousable. The patient is calm, cooperative, pleasant. At times the communication is difficult due to her hearing impairment. However, the patient today was more open, with a brighter affect that yesterday, also says that she feels much better, in a better mood, good spirit, denies depressive symptoms, denies suicidal and homicidal ideation, visual and auditory hallucinations. She is fully oriented 3, no attention deficit, no memory impairment present. I have a very nice conversation about politics, her impression about her current president and her philosophy about the difference between being breech and being good person. Review of Systems Except as stated in HPI: all other systems reviewed are Neg Mental Status Examination Appearance: Appropriate Consciousness: Alert Orientation: Person, Place, Date/Time Motor Activity: Normal gait Speech: Pressured Language: Adequate Fund of Knowledge: Inadequate Attention and Concentration: Adequate Memory: Impaired Mood: Irritable, Other Affect: Irritable, Other Thought Process & Associations: Linear, Other (concrete) Thought Content: Bizarre thinking, Other (concrete) Hallucination Type: None Delusion Type: None Suicidal Ideation: No Suicidal Plan: No Suicidal Intention: No Homicidal Ideation: No Homicidal Plan: No Homicidal Intention: No Insight: Fair Judgment: Impulsive Results Labs Test 07/18/17 09:46 White Blood Count 2.8 TH/MM3 Red Blood Count 4.16 MIL/MM3 Hemoglobin 12.8 GM/DL Hematocrit 37.2 % Mean Corpuscular Volume 89.6 FL Mean Corpuscular Hemoglobin 30.7 PG Mean Corpuscular Hemoglobin Concent 34.2 % Red Cell Distribution Width 15.2 % Platelet Count 301 TH/MM3 Mean Platelet Volume 8.4 FL Neutrophils (%) (Auto) 60.4 % Lymphocytes (%) (Auto) 31.8 % Monocytes (%) (Auto) 5.0 % Eosinophils (%) (Auto) 2.0 % Basophils (%) (Auto) 0.8 % Neutrophils # (Auto) 1.7 TH/MM3 Lymphocytes # (Auto) 0.9 TH/MM3 Monocytes # (Auto) 0.1 TH/MM3 Eosinophils # (Auto) 0.1 TH/MM3 Basophils # (Auto) 0.0 TH/MM3 CBC Comment DIFF FINAL Differential Comment Blood Urea Nitrogen 13 MG/DL Creatinine 0.55 MG/DL Random Glucose 123 MG/DL Albumin 3.1 GM/DL Calcium Level 9.0 MG/DL Phosphorus Level 2.7 MG/DL Magnesium Level 1.9 MG/DL Sodium Level 138 MEQ/L Potassium Level 3.8 MEQ/L Chloride Level 103 MEQ/L Carbon Dioxide Level 30.8 MEQ/L Anion Gap 4 MEQ/L Estimat Glomerular Filtration Rate 117 ML/MIN Vitals/IOs Vital Signs Date Time Temp Pulse Resp B/P (MAP) Pulse Ox O2 Delivery O2 Flow Rate FiO2 07/18/17 06:00 97.8 69 16 115/67 (83) 98 Intake and Output 07/18/17 07/18/17 07/19/17 08:00 16:00 00:00 Intake Total 240 ml 360 ml Output Total 2 ml Balance 238 ml 360 ml Assessment & Plan Problem List: (1) Psychosis not due to substance or known physiological condition ICD Codes: F29 - Unspecified psychosis not due to a substance or known physiological condition Assessment & Plan: On psychiatric evaluation today the patient is more engageable in a conversation, seems to be less psychotic, responding appropriately to psychotropic regimen. Continue her current psychotropic regimen. Brief supportive psychotherapy and psychoeducation provided. Assessment & Plan Estimated LOS: days Justification for Cont. Inpt. She has an elevated risk to decompensate at a lower level of care. Palomo Pham MD Jul 18, 2017 12:35
[2017-07-18 18:28] VITALS: BP 130/69; PULSE 72; RESP 16; TEMP 97.5; O2SAT 99
[2017-07-18] MEDS: ZOLPIDEM TARTRATE 5 MG TAB PO PRN (21:09)
[2017-07-19] MEDS: LORazepam 1 MG TAB PO PRN (05:03)
[2017-07-19] MEDS: CEPHALEXIN MONOHYDRATE 500 MG CAP PO SCH ×5 (05:03→23:43)
[2017-07-19 05:44] VITALS: BP 115/73; PULSE 86; RESP 18; TEMP 97.5; O2SAT 97
[2017-07-19] MEDS: HALOPERIDOL 5 MG TAB PO SCH ×2 (08:27→21:00)
[2017-07-19] MEDS: SODIUM CHLORIDE 0.9% FLUSH 10 ML FLUSH IV FLUSH SCH ×2 (09:00→21:34)
[2017-07-19] MEDS: ENOXAPARIN SODIUM 100 MG/ML SYRINGE SQ SCH ×2 (10:00→21:33)
--- NOTE | 2017-07-19 11:25 | HHI.PR ---
Subjective Remarks noted to be drenched in sweat states she is worried because she is not having her periods regularly and has been having hot flushes explained of perimenopausal symptoms no other acute issues overnight Objective Vitals Vital Signs Date Time Temp Pulse Resp B/P (MAP) Pulse Ox O2 Delivery O2 Flow Rate FiO2 07/19/17 05:44 97.5 86 18 115/73 (87) 97 07/18/17 18:28 97.5 72 16 130/69 (89) 99 I/O 07/18/17 07/18/17 07/18/17 07/19/17 07/19/17 07/19/17 07:00 15:00 23:00 07:00 15:00 23:00 Intake Total 240 ml 600 ml 600 ml 240 ml 240 ml Output Total 2 ml Balance 238 ml 600 ml 600 ml 240 ml 240 ml Intake Oral 240 ml 600 ml 600 ml 240 ml 240 ml Output Urine Total 2 ml # Voids 2 2 Result Diagram: 07/18/1746 07/18/17 0946 Objective Remarks awake, alert, pleasant, sleepy today, found drenched in sweat, states her hot flushes skin- redness and itching (mild) around Left chest mediport site- mostly resolved today. LUE with multiple skin blisters healing heart rate is regular, no murmur abdomen soft and non tender, no rebound, no guarding lung sounds are clear, equal bilaterally no calf asymmetry or edema, non tender calf, LUE significantly bigger the RUE A/P Problem List: (1) HER2-positive carcinoma of right breast ICD Code: C50.911 - Malignant neoplasm of unspecified site of right female breast (2) Deep venous thrombosis of left upper extremity ICD Code: I82.622 - Acute embolism and thrombosis of deep veins of left upper extremity (3) Psychosis not due to substance or known physiological condition ICD Code: F29 - Unspecified psychosis not due to a substance or known physiological condition Assessment and Plan Impression/ Plan: schizophrenia - per psychiatry LUE DVT on lovenox therapeutic dose ; serial US per hematology, if no improvement of LUE by US on LMWH, Dr Sewell planned to remove port (likely in 6 weeks when chemo finish) redness and itching around port site- will monitor for evidence of infection on chemo patient; no fever, but drenched in sweat, will not use blankets and remeasure temps- likely perimenopausal hot flushes toe cellulitis- resolving, was on cefazolin, now switched to keflex HER 2 shirley positive R breast CA- on chemo- last dose 07/14/17 - planned taxol every week with Dr Villareal. hypokalemia - resolved GI prophylaxis with lovenox Discharge Planning per psychiatry and oncology likely will need to finish inpatient chemo Lucita Valentin MD Jul 19, 2017 11:24
--- NOTE | 2017-07-19 14:49 | HHI.PYPN ---
Subjective Remarks Patient seen for follow up; chart reviewed. Discussion with nursing staff reported that patient woke up at 5 AM this morning and had discussion about politics with nursing staff but was redirectable was able to go back to bed. She was found lying in hospital bed, cooperative. Patient noted to be guarded stating that she has had no physical complaints at this time although was feeling tired from her treatments. Reports feeling good, denies feeling depressed, eating and drinking well reporting some difficulty [place] but not constipated. Patient denies any perceptual disturbances. Patient continues with poor insight into her mental illness and continues to be noted to be perseverative on her relationship with her daughter and likely will have difficulty with maintaining follow-up for her chemotherapy as well as her outpatient treatment without assistance due to her level disorganization to function independently. Review of Systems Except as stated in HPI: all other systems reviewed are Neg Mental Status Examination Appearance: Appropriate Consciousness: Alert Orientation: Person, Place, Date/Time Motor Activity: Normal gait Speech: Pressured Language: Adequate Fund of Knowledge: Inadequate Attention and Concentration: Adequate Memory: Impaired Mood: Irritable Affect: Irritable Thought Process & Associations: Linear, Other (concrete) Thought Content: Bizarre thinking, Other (concrete) Hallucination Type: None Delusion Type: None Suicidal Ideation: No Suicidal Plan: No Suicidal Intention: No Homicidal Ideation: No Homicidal Plan: No Homicidal Intention: No Insight: Fair Judgment: Impulsive Results Vitals/IOs Vital Signs Date Time Temp Pulse Resp B/P (MAP) Pulse Ox O2 Delivery O2 Flow Rate FiO2 07/19/17 05:44 97.5 86 18 115/73 (87) 97 Intake and Output 07/19/17 07/19/17 07/20/17 08:00 16:00 00:00 Intake Total 480 ml Balance 480 ml Assessment & Plan Problem List: (1) Psychosis not due to substance or known physiological condition ICD Codes: F29 - Unspecified psychosis not due to a substance or known physiological condition Assessment & Plan Patient at this time continues to have limited insight with some disorganization that impedes her ability to care for self adequately independently. Patient will likely require a degree of supervision to assist her in maintaining consistency with treatment as well as follow-up in terms of her mental health services as well as medical, specifically chemotherapy. We' ll continue current treatment. Continue to monitor mood and behavior. Discharge planning in progress Justification for Cont. Inpt. At risk for further decompensation at lower level of care. Discharge Planning To be determined Yadiel Enamorado MD Jul 19, 2017 14:49
--- NOTE | 2017-07-19 16:02 | PD.TTN ---
Patient Problems 1. Discharge planning 2. Medication compliance 3. Knowledge deficit 4. Lack of coping skills Progress Toward Goals Provider Present: Dr. Alex Enamorado Provider Input: 07/19/17 remains in need for stabilization and is lacking insight and remains at high risk for decompensation 07/17/17 patient is receiving chemo and presenting different than last hospitalization which she was manic, now she is withdrawn and limited in talking and interacting 07/14/17 patient came from independent living at [facility] and appears not being able to return there - she can benefit from an FIFI placement Psychiatric Counselors Present: Amanda Silva LCSW Psych Therapist Input: 07/19/17 still erratic, mood unstable, disorganized thoughts continue , needs at least HALFWAY if not more care 07/17/17 will work on SNF facilities and refer patient today, she remains uncooperative with this therapist 07/14/17 patient refused to talk to this counselor twice yesterday, pretending to sleep she is reported by nurses to remain in bed without interacting and irritable Group Spec/RT/OT/DONATO Present: Onel Devi OT Group Spec/RT/OT/DONATO Input: 07/19/17 cannot tolerate groups and non reality based thoughts 07/17/17 does not attend group and does not tolerate 07/14/17 patient does not attend groups and does not tolerate groups Amanda Silva LCSW Jul 19, 2017 16:02
[2017-07-19 18:00] VITALS: BP 121/59; PULSE 82; RESP 18; TEMP 98.5; O2SAT 98
[2017-07-19] MEDS: ZOLPIDEM TARTRATE 5 MG TAB PO PRN (21:32)
[2017-07-20] MEDS: CEPHALEXIN MONOHYDRATE 500 MG CAP PO SCH ×3 (05:19→18:00)
[2017-07-20 06:33] VITALS: BP 136/72; PULSE 66; RESP 20; TEMP 97.5; O2SAT 100
[2017-07-20] MEDS: SODIUM CHLORIDE 0.9% FLUSH 10 ML FLUSH IV FLUSH SCH ×2 (09:00→21:03)
[2017-07-20] MEDS: HALOPERIDOL 5 MG TAB PO SCH ×2 (09:00→21:03)
[2017-07-20] MEDS: ENOXAPARIN SODIUM 100 MG/ML SYRINGE SQ SCH ×2 (10:00→21:03)
--- NOTE | 2017-07-20 13:59 | PD.ONC.PN ---
Subjective Subjective Remarks Remembered my name. Discussed need to continue chemo which she understands. The mass in breast still present. More organized, no longer claim stating someone hurting her or her arm. Cooperative. Objective Data Date Time Temp Pulse Resp B/P (MAP) Pulse Ox O2 Delivery O2 Flow Rate FiO2 07/20/17 06:33 97.5 66 20 136/72 (93) 100 07/19/17 18:00 98.5 82 18 121/59 (79) 98 07/20/17 07/20/17 07/20/17 07:00 15:00 23:00 Intake Total 240 ml 660 ml Balance 240 ml 660 ml Result Diagram: 07/18/1794507/18/17 0946 Administered Medications Medications (Trade) Dose Ordered Sig/Renard Route PRN Reason Start Time Stop Time Status Last Admin Dose Admin Haloperidol (Haldol) 7.5 mg BID PO 07/12/17 09:00 07/20/17 09:00 Zolpidem Tartrate (Ambien) 5 mg HS PRN PO INSOMNIA 07/11/17 21:15 07/19/17 21:32 Enoxaparin Sodium (Lovenox Inj) 90 mg Q12H SQ 07/11/17 22:00 07/20/17 10:00 Lorazepam (Ativan) 1 mg Q6H PRN PO MODERATE TO SEVERE ANXIETY 07/11/17 21:15 07/19/17 05:03 Acetaminophen (Tylenol) 650 mg Q4H PRN PO Pain 1-5 or Temp >101F 07/11/17 21:15 07/17/17 20:42 Oxycodone/ Acetaminophen (Percocet 5-325 Mg) 1 tab Q6H PRN PO PAIN 6-10 07/11/17 21:15 07/14/17 14:25 Sodium Chloride (NS Flush) 2 ml BID IV FLUSH 07/15/17 21:00 07/20/17 09:00 Cephalexin Monohydrate (Keflex) 500 mg Q6HR PO 07/17/17 12:00 07/20/17 12:17 Objective Remarks GENERAL: Calm and pleasant middle aged female, sitting up in bed in nad. SKIN: Warm and dry. L arm swelling decreased, post is accessed. HEAD: Normocephalic. EYES: No injection or drainage. NECK: Supple, trachea midline. CARDIOVASCULAR: Regular rate and rhythm RESPIRATORY: Breath sounds equal bilaterally. No accessory muscle use. GASTROINTESTINAL: Abdomen soft, non-tender, nondistended. EXTREMITIES: No cyanosis NEUROLOGICAL: awake and alert, normal speech. moving all extremities. BREAST: R breast willem areolar mass unchanged. R axillary adenopathy resolved. L breast negative. Assessment/Plan Problem List: (1) HER2-positive carcinoma of right breast ICD Codes: C50.911 - Malignant neoplasm of unspecified site of right female breast Plan: 07/14: continue weekly therapy with Taxol. does not need Herceptin this week, was given q3 weeks dosing in clinic. 07/20/17. Continue weekly Taxol. Next week next dose Herceptin/Perjeta/Taxol is due. We discussed goal typically to give neoadjuvant therapy for 12 weeks or best response. She is tolerating chemotherapy well. She seems to understand the need to treat her cancer. Limited by being in the hospital, mammography and breast MRI is not available to in patients. Pt feels that she would be able to tolerate to stay still for the breast MRI. We will consult w/ Dr. Sewell of surgery. (2) Deep venous thrombosis of left upper extremity ICD Codes: I82.622 - Acute embolism and thrombosis of deep veins of left upper extremity Plan: --on therapeutic dose Lovenox If her left arm swelling does not respond to her low-molecular weight heparin we may have to remove the port. is likely given the nature of the catheter associated clots. 07/20/17. L arm swelling improved. She understands that it was a blood clot, she denies any bleeding on anticoagulation.j She is no longer claiming that someone broke her arm. Assessment 52y/o female with locally advanced HER2/shirley over expressing ER positive right breast cancer currently admitted for psychosis. 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 h/o Chemotherapy induced anemia. Plan 1. proceed with Taxol chemotherapy tomorrow 2. continue Lovenox for UE DVT catheter associate 3. mild leukopenia but OK for chemo. 4. discussed plan with her nurse Alexa Villareal MD Jul 20, 2017 13:59
--- NOTE | 2017-07-20 16:00 | HHI.PYPN ---
Subjective Remarks Patient seen for follow-up, chart reviewed. Discussion she staff reported that patient slept well with no behavioral disturbances, has chemotherapy scheduled for tomorrow. Patient was found lying in hospital bed, cooperative noted to be less irritable and in good spirits today. Patient reports feeling "alright" denies any physical complaints, reports tolerating medications well. Patient denies any perceptual disturbances, or any mood symptoms. Patient was taken to mental health court today and was a turn patient to be kept on a continuance due to patient having difficulty with placement postdischarge. Patient was noted during the time she was waiting to enter court was noted to be talking to self and responding to internal stimuli. Review of Systems Except as stated in HPI: all other systems reviewed are Neg Mental Status Examination Appearance: Appropriate Consciousness: Alert Orientation: Person, Place, Date/Time Motor Activity: Normal gait Speech: Pressured Language: Adequate Fund of Knowledge: Inadequate Attention and Concentration: Adequate Memory: Impaired Mood: Irritable Affect: Irritable Thought Process & Associations: Linear, Other (concrete) Thought Content: Bizarre thinking, Other (concrete) Hallucination Type: Auditory (responding to internal stimuli) Delusion Type: None Suicidal Ideation: No Suicidal Plan: No Suicidal Intention: No Homicidal Ideation: No Homicidal Plan: No Homicidal Intention: No Insight: Fair Judgment: Impulsive Results Vitals/IOs Vital Signs Date Time Temp Pulse Resp B/P (MAP) Pulse Ox O2 Delivery O2 Flow Rate FiO2 07/20/17 06:33 97.5 66 20 136/72 (93) 100 Intake and Output 07/20/17 07/20/17 07/21/17 08:00 16:00 00:00 Intake Total 240 ml 660 ml Balance 240 ml 660 ml Assessment & Plan Problem List: (1) Psychosis not due to substance or known physiological condition ICD Codes: F29 - Unspecified psychosis not due to a substance or known physiological condition Assessment & Plan Patient continues to be noted to have internal preoccupation, noted to be talking to self at times but has not had any behavioral disturbances. We'll continue current treatment. Patient to continue chemotherapy as per hematology/ oncology recommendations. Patient scheduled for next chemotherapy tomorrow. Continue to monitor mood and behavior. Patient recently reported having blood in stool but unverified. Nursing staff to continue to monitor for verification of this. Discharge planning in progress Justification for Cont. Inpt. At risk for further decompensation if at lower level of care Discharge Planning To be determined Yadiel Enamorado MD Jul 20, 2017 15:59
--- NOTE | 2017-07-20 17:08 | HHI.PR ---
Subjective Remarks no complains good po very pleasant and cooperative states her left arm "does not hurt at all anymore" Objective Vitals Vital Signs Date Time Temp Pulse Resp B/P (MAP) Pulse Ox O2 Delivery O2 Flow Rate FiO2 07/20/17 06:33 97.5 66 20 136/72 (93) 100 07/19/17 18:00 98.5 82 18 121/59 (79) 98 I/O 07/19/17 07/19/17 07/19/17 07/20/17 07/20/17 07/20/17 07:00 15:00 23:00 07:00 15:00 23:00 Intake Total 240 ml 720 ml 240 ml 660 ml Balance 240 ml 720 ml 240 ml 660 ml Intake Oral 240 ml 720 ml 240 ml 660 ml # Voids 2 2 Result Diagram: 07/18/17 0946 07/18/17 0946 Imaging Last Impressions Toe X-Ray 07/14/17 0000 Signed Impressions: Service Date/Time: Friday, July 14, 2017 10:34 - CONCLUSION: 1. Small exostosis of the toe. 2. No acute fracture or dislocation. Lj Clark MD Upper Extremity Ultrasound 07/13/17 0000 Signed Impressions: Service Date/Time: July 09:19 - CONCLUSION: Interval decrease in the size of the enlarged axillary lymph node. Jayden Brunner MD Objective Remarks awake and alert, oriented x 3 aniceric lungs- no rales chest wall- port in place regular rhythm abdomen soft, nontender extremities- LUE swelling- slightly bigger than right- per patient improved toes + onychomycosis, left 2nd toe + erythema, toe nail out, right big toe- mild erythema- good peripheral pulses both feet ++DP,PT gait steady A/P Problem List: (1) HER2-positive carcinoma of right breast ICD Code: C50.911 - Malignant neoplasm of unspecified site of right female breast (2) Deep venous thrombosis of left upper extremity ICD Code: I82.622 - Acute embolism and thrombosis of deep veins of left upper extremity (3) Psychosis not due to substance or known physiological condition ICD Code: F29 - Unspecified psychosis not due to a substance or known physiological condition Assessment and Plan 52 years old female schizophrenia - per psychiatry. patient alivia and cooperative. Aware of getting chemotherapy LUE DVT on lovenox therapeutic dose. Hematology ff. if no improvement of LUE by US on LMWH, Dr Sewell planned to remove port (likely in 6 weeks when chemo finish) toe cellulitis- left 2nd toe and right big toe, was on cefazolin, now switched to keflex 07/19. will need OP Podiatry referral HER 2 shirley positive R breast CA- on chemo- last dose 07/14/17 - planned taxol every week with Dr Villareal. - hypokalemia - resolved GI prophylaxis with lovenox Patient also up and ambulating Discharge Planning per psychiatry and oncology likely will need to finish inpatient chemo Pura Arellano MD Jul 20, 2017 17:08
[2017-07-20 19:25] VITALS: BP 124/72; PULSE 69; RESP 18; TEMP 97.9; O2SAT 98
[2017-07-20] MEDS: ZOLPIDEM TARTRATE 5 MG TAB PO PRN (21:03)
[2017-07-21] MEDS: CEPHALEXIN MONOHYDRATE 500 MG CAP PO SCH ×5 (06:02→23:06)
[2017-07-21 06:17] VITALS: BP 120/64; PULSE 68; RESP 16; TEMP 98.4; O2SAT 98
[2017-07-21] MEDS: HALOPERIDOL 5 MG TAB PO SCH ×2 (08:26→20:11)
[2017-07-21] MEDS: SODIUM CHLORIDE 0.9% FLUSH 10 ML FLUSH IV FLUSH SCH ×2 (08:26→20:11)
[2017-07-21] MEDS: ENOXAPARIN SODIUM 100 MG/ML SYRINGE SQ SCH ×2 (08:26→23:06)
--- NOTE | 2017-07-21 08:57 | HHI.PYPN ---
Subjective Remarks Patient is seen for follow-up, chart reviewed. Discussion nursing staff reported the patient has chemotherapy today had no behavioral changes since yesterday. The patient was found lying in hospital bed B, cooperative today. Patient noted to be organized during the interview appropriate responses to questions. Patient denies any physical complaints aware that she has chemotherapy scheduled for today. Patient continues to have limited insight into the difficulty she had at her prior residence where she was not doing her basic ADLs and currently awaiting appropriate placement. There has been no report of patient noted to be talking to herself or responding to internal stimuli. Review of Systems Except as stated in HPI: all other systems reviewed are Neg Mental Status Examination Appearance: Appropriate Consciousness: Alert Orientation: Person, Place, Date/Time Motor Activity: Normal gait Speech: Pressured Language: Adequate Fund of Knowledge: Inadequate Attention and Concentration: Adequate Memory: Impaired Mood: Appropriate Affect: Appropriate Thought Process & Associations: Linear, Other (concrete) Thought Content: Bizarre thinking, Other (concrete) Hallucination Type: None Delusion Type: None Suicidal Ideation: No Suicidal Plan: No Suicidal Intention: No Homicidal Ideation: No Homicidal Plan: No Homicidal Intention: No Insight: Fair Judgment: Impulsive Results Vitals/IOs Vital Signs Date Time Temp Pulse Resp B/P (MAP) Pulse Ox O2 Delivery O2 Flow Rate FiO2 07/21/17 06:17 98.4 68 16 120/64 (82) 98 Intake and Output 07/21/17 07/21/17 07/22/17 08:00 16:00 00:00 Intake Total 240 ml Balance 240 ml Assessment & Plan Problem List: (1) Psychosis not due to substance or known physiological condition ICD Codes: F29 - Unspecified psychosis not due to a substance or known physiological condition Assessment & Plan The patient at this time continues to have poor insight but not noted to have acute gross psychotic symptoms at this time although is noted to have some internal preoccupation and responding to internal stimuli yesterday. We will continue current treatment. Patient awaiting chemotherapy later today. Continue recommendations as per medical team. Continue to monitor mood and behavior. Discharge planning in progress. Justification for Cont. Inpt. At risk of further decompensation at lower level of care Discharge Planning To be determined Yadiel Enamorado MD Jul 21, 2017 08:57
--- NOTE | 2017-07-21 14:09 | HHI.PR ---
Subjective Remarks seen here at chemotherapy floor awake and alert no pain complains Objective Vitals Vital Signs Date Time Temp Pulse Resp B/P (MAP) Pulse Ox O2 Delivery O2 Flow Rate FiO2 07/21/17 06:17 98.4 68 16 120/64 (82) 98 07/20/17 19:25 97.9 69 18 124/72 (89) 98 I/O 07/20/17 07/20/17 07/20/17 07/21/17 07/21/17 07/21/17 07:00 15:00 23:00 07:00 15:00 23:00 Intake Total 240 ml 660 ml 1140 ml 240 ml 240 ml Balance 240 ml 660 ml 1140 ml 240 ml 240 ml Intake Oral 240 ml 660 ml 1140 ml 240 ml 240 ml # Voids 2 4 Result Diagram: 07/18/17 0946 07/18/17 0946 Imaging Last Impressions Toe X-Ray 07/14/17 0000 Signed Impressions: Service Date/Time: Friday, July 14, 2017 10:34 - CONCLUSION: 1. Small exostosis of the toe. 2. No acute fracture or dislocation. Lj Clark MD Upper Extremity Ultrasound 07/13/17 0000 Signed Impressions: Service Date/Time: July 09:19 - CONCLUSION: Interval decrease in the size of the enlarged axillary lymph node. Jayden Brunner MD Objective Remarks awake and alert, oriented x 3, cooperative anicteric lungs- no rales chest wall- port in place regular rhythm abdomen soft, nontender extremities- LUE swelling- improved, no erythema toes + onychomycosis, left 2nd toe mild erythema, toe nail out right big toe- mild erythema-- improved both feet ++DP,PT gait steady A/P Problem List: (1) HER2-positive carcinoma of right breast ICD Code: C50.911 - Malignant neoplasm of unspecified site of right female breast (2) Deep venous thrombosis of left upper extremity ICD Code: I82.622 - Acute embolism and thrombosis of deep veins of left upper extremity (3) Psychosis not due to substance or known physiological condition ICD Code: F29 - Unspecified psychosis not due to a substance or known physiological condition Assessment and Plan 52 years old female Schizophrenia - per psychiatry. patient calm and cooperative. LUE DVT on lovenox therapeutic dose. Hematology ff. if no improvement of LUE by US on LMWH, Dr Sewell planned to remove port (likely in 6 weeks when chemo finish) toe cellulitis- left 2nd toe and right big toe, was on cefazolin, switched to keflex 07/19. will need OP Podiatry referral HER 2 shirley positive R breast CA- on chemo- last dose 07/14/17 - planned taxol every week with Dr Villareal. - ongoing hypokalemia - resolved GI prophylaxis- on lovenox Patient also up and ambulating Discharge Planning per psychiatry and oncology likely will need to finish inpatient chemo Pura Arellano MD Jul 21, 2017 14:09
--- NOTE | 2017-07-21 14:29 | PD.ONC.PN ---
Subjective Subjective Remarks Afebrile overnight. Patient resting in room, calm, pleasant. she is without complaint. She states she is ready for chemotherapy. Objective Data Date Time Temp Pulse Resp B/P (MAP) Pulse Ox O2 Delivery O2 Flow Rate FiO2 07/21/17 06:17 98.4 68 16 120/64 (82) 98 07/20/17 19:25 97.9 69 18 124/72 (89) 98 07/21/17 07/21/17 07/21/17 07:00 15:00 23:00 Intake Total 240 ml 240 ml Balance 240 ml 240 ml Result Diagram: 07/18/1746 07/18/1746 Administered Medications Medications (Trade) Dose Ordered Sig/Renard Route PRN Reason Start Time Stop Time Status Last Admin Dose Admin Haloperidol (Haldol) 7.5 mg BID PO 07/12/17 09:00 07/21/17 08:26 Zolpidem Tartrate (Ambien) 5 mg HS PRN PO INSOMNIA 07/11/17 21:15 07/20/17 21:03 Enoxaparin Sodium (Lovenox Inj) 90 mg Q12H SQ 07/11/17 22:00 07/21/17 08:26 Lorazepam (Ativan) 1 mg Q6H PRN PO MODERATE TO SEVERE ANXIETY 07/11/17 21:15 07/19/17 05:03 Acetaminophen (Tylenol) 650 mg Q4H PRN PO Pain 1-5 or Temp >101F 07/11/17 21:15 07/17/17 20:42 Oxycodone/ Acetaminophen (Percocet 5-325 Mg) 1 tab Q6H PRN PO PAIN 6-10 07/11/17 21:15 07/14/17 14:25 Sodium Chloride (NS Flush) 2 ml BID IV FLUSH 07/15/17 21:00 07/21/17 08:26 Cephalexin Monohydrate (Keflex) 500 mg Q6HR PO 07/17/17 12:00 07/21/17 12:00 Objective Remarks GENERAL: Pleasant middle aged female, sitting up in bed in nad. SKIN: Warm and dry. HEAD: Normocephalic. EYES: No injection or drainage. NECK: Supple, trachea midline. CARDIOVASCULAR: Regular rate and rhythm RESPIRATORY: Breath sounds equal bilaterally. No accessory muscle use. GASTROINTESTINAL: Abdomen soft, non-tender, nondistended. EXTREMITIES: No cyanosis MUSCULOSKELETAL: Adequate muscle tone. NEUROLOGICAL: awake and alert, normal speech. moving all extremities. Assessment/Plan Problem List: (1) HER2-positive carcinoma of right breast ICD Codes: C50.911 - Malignant neoplasm of unspecified site of right female breast Plan: 07/14: continue weekly therapy with Taxol. does not need Herceptin this week, was given q3 weeks dosing in clinic. 07/20/17. Continue weekly Taxol. Next week next dose Herceptin/Perjeta/Taxol is due. We discussed goal typically to give neoadjuvant therapy for 12 weeks or best response. She is tolerating chemotherapy well. She seems to understand the need to treat her cancer. 07/21: Taxol today. monitor for adverse reaction. (2) Deep venous thrombosis of left upper extremity ICD Codes: I82.622 - Acute embolism and thrombosis of deep veins of left upper extremity Plan: --on therapeutic dose Lovenox If her left arm swelling does not respond to her low-molecular weight heparin we may have to remove the port. is likely given the nature of the catheter associated clots. 07/20/17. L arm swelling improved. She understands that it was a blood clot, she denies any bleeding on anticoagulation.j She is no longer claiming that someone broke her arm. 07/21/17: continue Lovenox. Assessment 52y/o female with locally advanced HER2/shirley over expressing ER positive right breast cancer currently admitted for psychosis. 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 h/o Chemotherapy induced anemia. Plan 1. Taxol chemotherapy today. Idalia Disla Jul 21, 2017 14:29
[2017-07-21] MEDS ORDERED: SODIUM CHLOR 0.9% 250 ML INJ 250 ML IV ONE ×2 (14:45→17:00)
[2017-07-21] MEDS ORDERED: DEXAMETHASONE INJ 10 MG in SODIUM CHLORIDE 0.9% INJ 50 ML IV ONE (16:00)
[2017-07-21] MEDS ORDERED: LORazepam 2 MG/ML VIAL IV ONE (16:00)
[2017-07-21] MEDS ORDERED: diphenhydrAMINE HCL 25 MG CAP PO ONE (16:00)
[2017-07-21] MEDS ORDERED: FAMOTIDINE 20 MG TAB PO ONE (16:00)
[2017-07-21] MEDS ORDERED: PACLITAXEL IV ONE (17:00)
[2017-07-21] MEDS ORDERED: SODIUM CHLOR 0.9% IV ONE (17:00)
[2017-07-21 17:17] VITALS: BP 119/79; PULSE 70; RESP 20; TEMP 98.3; O2SAT 99
[2017-07-21 18:36] VITALS: BP 130/68; PULSE 78; RESP 18; TEMP 97.5; O2SAT 96
[2017-07-22] MEDS: CEPHALEXIN MONOHYDRATE 500 MG CAP PO SCH ×3 (05:27→17:56)
[2017-07-22 06:16] VITALS: BP 109/53; PULSE 59; RESP 16; TEMP 97.7; O2SAT 96
[2017-07-22] MEDS: HALOPERIDOL 5 MG TAB PO SCH ×2 (08:30→21:37)
[2017-07-22] MEDS: SODIUM CHLORIDE 0.9% FLUSH 10 ML FLUSH IV FLUSH SCH ×2 (08:31→21:36)
--- NOTE | 2017-07-22 09:35 | HHI.PYPN ---
Subjective Remarks Patient seen for follow, chart reviewed. Discussion nursing staff reported to have been no changes with patient since yesterday, has chemotherapy done yesterday. Patient was found lying in hospital bed watching television or to be calm and cooperative. Patient reports feeling "good" that he had not tolerated chemotherapy yesterday well. Patient reports having difficulty with sleep, denied any depressive or manic symptoms as well as any perceptual disturbances. Patient requested [place] if [place] and she states is more familiar with that area. Review of Systems Except as stated in HPI: all other systems reviewed are Neg Mental Status Examination Appearance: Appropriate Consciousness: Alert Orientation: Person, Place, Date/Time Motor Activity: Normal gait Speech: Unremarkable Language: Adequate Fund of Knowledge: Inadequate Attention and Concentration: Adequate Memory: Impaired Mood: Appropriate Affect: Appropriate Thought Process & Associations: Linear, Other (concrete) Thought Content: Bizarre thinking, Other (concrete) Hallucination Type: None Delusion Type: None Suicidal Ideation: No Suicidal Plan: No Suicidal Intention: No Homicidal Ideation: No Homicidal Plan: No Homicidal Intention: No Insight: Fair Judgment: Impulsive Results Vitals/IOs Vital Signs Date Time Temp Pulse Resp B/P (MAP) Pulse Ox O2 Delivery O2 Flow Rate FiO2 07/22/17 06:16 97.7 59 16 109/53 (71) 96 Intake and Output 07/22/17 07/22/17 07/23/17 08:00 16:00 00:00 Intake Total 240 ml Balance 240 ml Assessment & Plan Problem List: (1) Psychosis not due to substance or known physiological condition ICD Codes: F29 - Unspecified psychosis not due to a substance or known physiological condition Assessment & Plan Patient this time noted to have any overt manic symptoms but at times is noted to have episodes of talking to self and responding to internal stimuli but has not done so lately. We will continue current treatment. Continue recommendations as per medical team. Discharge planning in progress Justification for Cont. Inpt. At risk for further decompensation if at lower level of care Discharge Planning To be determined Yadiel Enamorado MD Jul 22, 2017 09:35
[2017-07-22] MEDS: ENOXAPARIN SODIUM 100 MG/ML SYRINGE SQ SCH ×2 (09:48→21:37)
[2017-07-22 18:00] VITALS: BP 117/58; PULSE 82; RESP 15; TEMP 98; O2SAT 96
--- NOTE | 2017-07-22 18:21 | HHI.PR ---
Subjective Remarks no complains of arm pain patient cooperative Objective Vitals Vital Signs Date Time Temp Pulse Resp B/P (MAP) Pulse Ox O2 Delivery O2 Flow Rate FiO2 07/22/17 18:00 98.0 82 15 117/58 (77) 96 07/22/17 06:16 97.7 59 16 109/53 (71) 96 07/21/17 18:36 97.5 78 18 130/68 (88) 96 I/O 07/21/17 07/21/17 07/21/17 07/22/17 07/22/17 07/22/17 07:00 15:00 23:00 07:00 15:00 23:00 Intake Total 240 ml 720 ml 1515 ml 240 ml 2400 ml 240 ml Balance 240 ml 720 ml 1515 ml 240 ml 2400 ml 240 ml Intake Oral 240 ml 720 ml 1130 ml 240 ml 2400 ml 240 ml IV Total 385 ml # Voids 4 2 3 1 Result Diagram: 07/18/17 0946 07/18/17 0946 Imaging Last Impressions Toe X-Ray 07/14/17 0000 Signed Impressions: Service Date/Time: Friday, July 14, 2017 10:34 - CONCLUSION: 1. Small exostosis of the toe. 2. No acute fracture or dislocation. Lj Clark MD Upper Extremity Ultrasound 07/13/17 0000 Signed Impressions: Service Date/Time: July 09:19 - CONCLUSION: Interval decrease in the size of the enlarged axillary lymph node. Jayden Brunner MD Objective Remarks awake and alert, oriented x 3, calm and cooperatove anicteric lungs- no rales chest wall- port in place regular rhythm abdomen soft, nontender extremities- LUE mild swelling- continues to improve, no induration toes + onychomycosis, left 2nd toe mild erythema- improved, toe nail out right big toe- mild erythema-- improved both feet ++DP,PT gait steady A/P Problem List: (1) HER2-positive carcinoma of right breast ICD Code: C50.911 - Malignant neoplasm of unspecified site of right female breast (2) Deep venous thrombosis of left upper extremity ICD Code: I82.622 - Acute embolism and thrombosis of deep veins of left upper extremity (3) Psychosis not due to substance or known physiological condition ICD Code: F29 - Unspecified psychosis not due to a substance or known physiological condition Assessment and Plan 52 years old female Schizophrenia - per psychiatry. patient calm and cooperative. LUE DVT on lovenox therapeutic dose. Hematology ff. if no improvement of LUE by US on LMWH, Dr Sewell planned to remove port (likely in 6 weeks when chemo finish) toe cellulitis- left 2nd toe and right big toe, was on cefazolin, switched to keflex 07/19. will need OP Podiatry ff up HER 2 shirley positive R breast CA- on chemo- last dose 07/14/17 - planned taxol every week with Dr Villareal. - ongoing hypokalemia - resolved GI prophylaxis- on lovenox Patient also up and ambulating Discharge Planning per psychiatry and oncology likely will need to finish inpatient chemo Pura Arellano MD Jul 22, 2017 18:21
[2017-07-23 06:00] VITALS: BP 124/63; PULSE 76; RESP 20; TEMP 97.8; O2SAT 99
[2017-07-23] MEDS: CEPHALEXIN MONOHYDRATE 500 MG CAP PO SCH ×5 (06:22→22:19)
[2017-07-23] MEDS: HALOPERIDOL 5 MG TAB PO SCH ×2 (09:00→22:10)
[2017-07-23] MEDS: SODIUM CHLORIDE 0.9% FLUSH 10 ML FLUSH IV FLUSH SCH (11:05)
[2017-07-23] MEDS: ENOXAPARIN SODIUM 100 MG/ML SYRINGE SQ SCH ×2 (11:05→22:12)
--- NOTE | 2017-07-23 14:43 | HHI.PYPN ---
Subjective Remarks Patient seen for follow, chart reviewed. Discussion nursing staff reported the patient continues to have moments of lability but generally pleasant. Patient was found lying in hospital bed, cooperative. Patient states that she is feeling "okay" reports having urination or bowel movement. Patient has denied any repeat blood in stool denies any diarrhea or constipation. Patient denies any perceptual disturbances at this time. Review of Systems Except as stated in HPI: all other systems reviewed are Neg Mental Status Examination Appearance: Appropriate Consciousness: Alert Orientation: Person, Place, Date/Time Motor Activity: Normal gait Speech: Unremarkable Language: Adequate Fund of Knowledge: Inadequate Attention and Concentration: Adequate Memory: Impaired Mood: Appropriate Affect: Appropriate Thought Process & Associations: Linear, Other (concrete) Thought Content: Bizarre thinking, Other (concrete) Hallucination Type: None Delusion Type: None Suicidal Ideation: No Suicidal Plan: No Suicidal Intention: No Homicidal Ideation: No Homicidal Plan: No Homicidal Intention: No Insight: Fair Judgment: Impulsive Results Vitals/IOs Vital Signs Date Time Temp Pulse Resp B/P (MAP) Pulse Ox O2 Delivery O2 Flow Rate FiO2 07/23/17 06:00 97.8 76 20 124/63 (83) 99 Intake and Output 07/23/17 07/23/17 07/24/17 08:00 16:00 00:00 Intake Total 480 ml 1440 ml Balance 480 ml 1440 ml Assessment & Plan Problem List: (1) Psychosis not due to substance or known physiological condition ICD Codes: F29 - Unspecified psychosis not due to a substance or known physiological condition Assessment & Plan Patient continues to have poor insight into illness but has not had any behavioral disturbances recently although occasionally noted to have occasional outbursts when talking to self but have not been very frequent. We will continue current treatment. Continue recommendations as per prior medical team. Discharge planning in progress Justification for Cont. Inpt. At risk for further decompensation if at lower level of care Discharge Planning To be determined Yadiel Enamorado MD Jul 23, 2017 14:43
--- NOTE | 2017-07-23 16:32 | HHI.PR ---
Subjective Remarks no pain complains still having some random paranoid thoughts with one of our staff Objective Vitals Vital Signs Date Time Temp Pulse Resp B/P (MAP) Pulse Ox O2 Delivery O2 Flow Rate FiO2 07/23/17 06:00 97.8 76 20 124/63 (83) 99 07/22/17 18:00 98.0 82 15 117/58 (77) 96 I/O 07/22/17 07/22/17 07/22/17 07/23/17 07/23/17 07/23/17 07:00 15:00 23:00 07:00 15:00 23:00 Intake Total 240 ml 2400 ml 1200 ml 1920 ml Balance 240 ml 2400 ml 1200 ml 1920 ml Intake Oral 240 ml 2400 ml 1200 ml 1920 ml # Voids 1 2 1 Imaging Last Impressions Toe X-Ray 07/14/17 0000 Signed Impressions: Service Date/Time: Friday, July 14, 2017 10:34 - CONCLUSION: 1. Small exostosis of the toe. 2. No acute fracture or dislocation. Lj Clark MD Upper Extremity Ultrasound 07/13/17 0000 Signed Impressions: Service Date/Time: July 09:19 - CONCLUSION: Interval decrease in the size of the enlarged axillary lymph node. Jayden Brunner MD Objective Remarks awake and alert, oriented x 3, calm anicteric lungs- no rales chest wall- port in place regular rhythm abdomen soft, nontender extremities- LUE mild swelling- improving but now with some erythema and superficial excoriations toes + onychomycosis, left 2nd toe erythema- resolved, toe nail out both feet ++DP,PT gait steady A/P Problem List: (1) HER2-positive carcinoma of right breast ICD Code: C50.911 - Malignant neoplasm of unspecified site of right female breast (2) Deep venous thrombosis of left upper extremity ICD Code: I82.622 - Acute embolism and thrombosis of deep veins of left upper extremity (3) Psychosis not due to substance or known physiological condition ICD Code: F29 - Unspecified psychosis not due to a substance or known physiological condition Assessment and Plan 52 years old female Schizophrenia - per psychiatry. patient calm and cooperative. LUE DVT on lovenox therapeutic dose. Hematology ff. if no improvement of LUE by US on LMWH, Dr Sewell planned to remove port (likely in 6 weeks when chemo finish) Left 2nd toe and right big toe, was on cefazolin 07/15, switched to keflex 07/19. will need OP Podiatry ff up- will give total 10 days then DC HER 2 shirley positive R breast CA- on chemo- last dose 07/14/17 - planned taxol every week with Dr Villareal. - ongoing Superficial excoriations/ wounds on left upper arm- Bacitracin bid hypokalemia - resolved GI prophylaxis- on lovenox Patient also up and ambulating Discharge Planning per psychiatry and oncology likely will need to finish inpatient chemo Pura Arellano MD Jul 23, 2017 16:32
[2017-07-23 18:54] VITALS: BP 121/58; PULSE 78; RESP 17; TEMP 97.8; O2SAT 96
[2017-07-24] MEDS: CEPHALEXIN MONOHYDRATE 500 MG CAP PO SCH ×3 (05:27→17:26)
[2017-07-24 05:40] VITALS: BP 109/58; PULSE 62; RESP 15; O2SAT 98
[2017-07-24] MEDS: HALOPERIDOL 5 MG TAB PO SCH ×2 (08:56→20:47)
[2017-07-24] MEDS: ENOXAPARIN SODIUM 100 MG/ML SYRINGE SQ SCH ×2 (08:56→20:48)
[2017-07-24] MEDS: SODIUM CHLORIDE 0.9% FLUSH 10 ML FLUSH IV FLUSH SCH ×2 (08:57→20:52)
--- NOTE | 2017-07-24 10:42 | PD.TTN ---
Patient Problems 1. Discharge planning 2. Medication compliance 3. Knowledge deficit 4. Lack of coping skills Progress Toward Goals Provider Present: Dr. Alex Enamorado Provider Input: 07/24/2017; per Dr. Enamorado, patient continues to display inappropriate behavior, requesting redirection with thoughts/mood. 07/19/17 remains in need for stabilization and is lacking insight and remains at high risk for decompensation 07/17/17 patient is receiving chemo and presenting different than last hospitalization which she was manic, now she is withdrawn and limited in talking and interacting 07/14/17 patient came from independent living at [facility] and appears not being able to return there - she can benefit from an FIFI placement Psychiatric Counselors Present: Amanda Silva LCSW, [place] [facility] Psych Therapist Input: 07/24/2017; patient is encouraged with mood, meals and medication compliance 07/19/17 still erratic, mood unstable, disorganized thoughts continue , needs at least [facility] if not more care 07/17/17 will work on SNF facilities and refer patient today, she remains uncooperative with this therapist 07/14/17 patient refused to talk to this counselor twice yesterday, pretending to sleep she is reported by nurses to remain in bed without interacting and irritable Group Spec/RT/OT/DONATO Present: Onel Devi OT Group Spec/RT/OT/DONATO Input: 07/24/2017; patient continues to be unable to participate with groups and activities 07/19/17 cannot tolerate groups and non reality based thoughts 07/17/17 does not attend group and does not tolerate 07/14/17 patient does not attend groups and does not tolerate groups Documentation Scribe: Fernanda Dupree [facility] Jul 24, 2017 10:41
--- NOTE | 2017-07-24 11:40 | HHI.PYPN ---
Subjective Remarks Patient seen for follow up; chart reviewed. Patient found lying on hospital bed , calm and superficially cooperative today. Patient reports feeling "ok", reports sleeping well, denies any perceptual disturbances but is found occasionally rambling to self and at times focused on her daughter. She continues to adhere to treatment and recommendations for continued treatment of her breast cancer. Patient refusing to participate in groups but is continually encouraged. Review of Systems Except as stated in HPI: all other systems reviewed are Neg Mental Status Examination Appearance: Appropriate Consciousness: Alert Orientation: Person, Place, Date/Time Motor Activity: Normal gait Speech: Unremarkable Language: Adequate Fund of Knowledge: Inadequate Attention and Concentration: Adequate Memory: Impaired Mood: Appropriate Affect: Appropriate Thought Process & Associations: Linear, Other (concrete) Thought Content: Bizarre thinking, Other (concrete) Hallucination Type: None Delusion Type: Bizarre (pertaining to her daughter who was allegedly missing) Suicidal Ideation: No Suicidal Plan: No Suicidal Intention: No Homicidal Ideation: No Homicidal Plan: No Homicidal Intention: No Insight: Poor Judgment: Impulsive Results Vitals/IOs Vital Signs Date Time Temp Pulse Resp B/P (MAP) Pulse Ox O2 Delivery O2 Flow Rate FiO2 07/24/17 05:40 62 15 109/58 (75) 98 07/23/17 18:54 97.8 Intake and Output 07/24/17 07/24/17 07/25/17 08:00 16:00 00:00 Intake Total 60 ml 360 ml Balance 60 ml 360 ml Assessment & Plan Problem List: (1) Psychosis not due to substance or known physiological condition ICD Codes: F29 - Unspecified psychosis not due to a substance or known physiological condition Assessment & Plan Patient continues to have poor insight into her mental illness which continues to impede her ability to adequately care for self, specifically in the context of current medical treatment for breast cancer. Patient had difficulty with managing alone prior to her admission and had gone homeless for several days prior to presenting to this admission. Patient to continue treatment, unclear if patient will find adequate placement as she will require supervision with assistance to continue her treatment for breast cancer. Patient continues to be on state hospital referral list. Justification for Cont. Inpt. At risk for decompensation at lower level of care Discharge Planning State referral Yadiel Enamorado MD Jul 24, 2017 11:40
[2017-07-24] MEDS: ALUMINUM/MAGNESIUM/SIMETH 30 ML CUP PO PRN (11:56)
--- NOTE | 2017-07-24 13:18 | HHI.PR ---
Subjective Remarks no complains no foot pain Objective Vitals Vital Signs Date Time Temp Pulse Resp B/P (MAP) Pulse Ox O2 Delivery O2 Flow Rate FiO2 07/24/17 05:40 62 15 109/58 (75) 98 07/23/17 18:54 97.8 78 17 121/58 (79) 96 I/O 07/23/17 07/23/17 07/23/17 07/24/17 07/24/17 07/24/17 07:00 15:00 23:00 07:00 15:00 23:00 Intake Total 1920 ml 480 ml 60 ml 360 ml Balance 1920 ml 480 ml 60 ml 360 ml Intake Oral 1920 ml 480 ml 60 ml 360 ml # Voids 1 1 Imaging Last Impressions Toe X-Ray 07/14/17 0000 Signed Impressions: Service Date/Time: Friday, July 14, 2017 10:34 - CONCLUSION: 1. Small exostosis of the toe. 2. No acute fracture or dislocation. Lj Clark MD Upper Extremity Ultrasound 07/13/17 0000 Signed Impressions: Service Date/Time: July 09:19 - CONCLUSION: Interval decrease in the size of the enlarged axillary lymph node. Jayden Brunner MD Objective Remarks awake and alert, oriented x 3, calm anicteric lungs- no rales chest wall- port in place regular rhythm abdomen soft, nontender extremities- LUE swelling improved, no induration, good pulses toes + onychomycosis, left 2nd toe erythema- resolved, toe nail out both feet ++DP,PT gait steady A/P Problem List: (1) HER2-positive carcinoma of right breast ICD Code: C50.911 - Malignant neoplasm of unspecified site of right female breast (2) Deep venous thrombosis of left upper extremity ICD Code: I82.622 - Acute embolism and thrombosis of deep veins of left upper extremity (3) Psychosis not due to substance or known physiological condition ICD Code: F29 - Unspecified psychosis not due to a substance or known physiological condition Assessment and Plan 52 years old female Schizophrenia - per psychiatry. not paranoid today on exam LUE DVT on lovenox therapeutic dose. Hematology ff. if no improvement of LUE by US on LMWH, Dr Sewell planned to remove port (likely in 6 weeks when chemo finish) Left 2nd toe and right big toe celulitis - IMproved . , was on cefazolin 07/14, switched to keflex 07/19. will need OP Podiatry ff up- will give total 10 days of antibiotics- HER 2 shirley positive R breast CA- on chemo- last dose 07/14/17 - planned taxol every week with Dr Villareal. - ongoing Superficial excoriations/ wounds on left upper arm- - improved - continue Bacitracin bid hypokalemia - resolved GI prophylaxis- on lovenox Patient also up and ambulating Discharge Planning per psychiatry and oncology likely will need to finish inpatient chemo Pura Arellano MD Jul 24, 2017 13:18
[2017-07-24 18:28] VITALS: BP 105/60; PULSE 75; RESP 16; TEMP 97.6; O2SAT 95
[2017-07-25] MEDS: CEPHALEXIN MONOHYDRATE 500 MG CAP PO SCH ×4 (00:58→17:11)
[2017-07-25] MEDS: ZOLPIDEM TARTRATE 5 MG TAB PO PRN ×2 (01:00→20:53)
[2017-07-25 06:00] VITALS: BP 112/67; PULSE 72; RESP 15; TEMP 98.3; O2SAT 97
[2017-07-25] MEDS: SODIUM CHLORIDE 0.9% FLUSH 10 ML FLUSH IV FLUSH SCH ×2 (09:00→20:58)
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
[2017-07-25] MEDS: HALOPERIDOL 5 MG TAB PO SCH ×2 (10:47→20:53)
[2017-07-25] MEDS: ENOXAPARIN SODIUM 100 MG/ML SYRINGE SQ SCH ×2 (10:48→20:55)
--- NOTE | 2017-07-25 17:13 | HHI.PR ---
Subjective Remarks no foot pain complains good po up and ambulating Objective Vitals Vital Signs Date Time Temp Pulse Resp B/P (MAP) Pulse Ox O2 Delivery O2 Flow Rate FiO2 07/25/17 06:00 98.3 72 15 112/67 (82) 97 07/24/17 18:28 97.6 75 16 105/60 (75) 95 I/O 07/24/17 07/24/17 07/24/17 07/25/17 07/25/17 07/25/17 07:00 15:00 23:00 07:00 15:00 23:00 Intake Total 60 ml 360 ml 720 ml 120 ml 240 ml 480 ml Balance 60 ml 360 ml 720 ml 120 ml 240 ml 480 ml Intake Oral 60 ml 360 ml 720 ml 120 ml 240 ml 480 ml # Voids 1 1 1 Imaging Last Impressions Toe X-Ray 07/14/17 0000 Signed Impressions: Service Date/Time: Friday, July 14, 2017 10:34 - CONCLUSION: 1. Small exostosis of the toe. 2. No acute fracture or dislocation. Lj Clark MD Upper Extremity Ultrasound 07/13/17 0000 Signed Impressions: Service Date/Time: July 09:19 - CONCLUSION: Interval decrease in the size of the enlarged axillary lymph node. Jayden Brunner MD Objective Remarks awake and alert, oriented x 3, calm anicteric lungs- no rales chest wall- port in place regular rhythm abdomen soft, nontender extremities- LUE swelling improved, no induration, good pulses toes + onychomycosis, left 2nd toe erythema- resolved, toe nail out both feet ++DP,PT gait steady A/P Problem List: (1) HER2-positive carcinoma of right breast ICD Code: C50.911 - Malignant neoplasm of unspecified site of right female breast (2) Deep venous thrombosis of left upper extremity ICD Code: I82.622 - Acute embolism and thrombosis of deep veins of left upper extremity (3) Psychosis not due to substance or known physiological condition ICD Code: F29 - Unspecified psychosis not due to a substance or known physiological condition Assessment and Plan 52 years old female Schizophrenia - per psychiatry. not paranoid today on exam LUE DVT on lovenox therapeutic dose. Hematology ff. if no improvement of LUE by US on LMWH, Dr Sewell planned to remove port (likely in 6 weeks when chemo finish) Left 2nd toe and right big toe cellulitis - Resolved S/P total 10 days course of Cefazolin + Keflex. 07/25. HER 2 shirley positive R breast CA- on chemo- last dose 07/14/17 - planned taxol every week with Dr Villareal. - ongoing Superficial excoriations/ wounds on left upper arm- - improved - continue Bacitracin bid hypokalemia - resolved GI prophylaxis- on lovenox Patient also up and ambulating Discharge Planning per psychiatry and oncology likely will need to finish inpatient chemo Pura Arellano MD Jul 25, 2017 17:13
[2017-07-25 18:16] VITALS: BP 123/83; PULSE 76; RESP 16; TEMP 97.4; O2SAT 98
[2017-07-25] MEDS: ALUMINUM/MAGNESIUM/SIMETH 30 ML CUP PO PRN (22:52)
[2017-07-26 06:09] VITALS: BP 119/66; PULSE 67; RESP 15; TEMP 98.2; O2SAT 98
[2017-07-26] MEDS: SODIUM CHLORIDE 0.9% FLUSH 10 ML FLUSH IV FLUSH SCH ×2 (09:00→21:00)
[2017-07-26] MEDS: ENOXAPARIN SODIUM 100 MG/ML SYRINGE SQ SCH ×2 (09:21→21:19)
[2017-07-26] MEDS: HALOPERIDOL 5 MG TAB PO SCH ×2 (09:21→21:00)
--- NOTE | 2017-07-26 09:53 | HHI.PR ---
Subjective Remarks Follow-up visit for breast cancer, DVT of left upper extremity, and psychosis. Patient seen and examined sitting up in chair in the hallway in no acute distress. She reports that left arm swelling has improved, denies any pain or discomfort. Denies any fevers, chills, nausea, vomiting, diarrhea, headache, shortness of breath or cough. Objective Vitals Vital Signs Date Time Temp Pulse Resp B/P (MAP) Pulse Ox O2 Delivery O2 Flow Rate FiO2 07/26/17 06:09 98.2 67 15 119/66 (83) 98 07/25/17 18:16 97.4 76 16 123/83 (96) 98 I/O 07/25/17 07/25/17 07/25/17 07/26/17 07/26/17 07/26/17 07:00 15:00 23:00 07:00 15:00 23:00 Intake Total 120 ml 240 ml 2040 ml 720 ml Balance 120 ml 240 ml 2040 ml 720 ml Intake Oral 120 ml 240 ml 2040 ml 720 ml # Voids 1 2 1 Imaging Last Impressions Toe X-Ray 07/14/17 0000 Signed Impressions: Service Date/Time: Friday, July 14, 2017 10:34 - CONCLUSION: 1. Small exostosis of the toe. 2. No acute fracture or dislocation. Lj Clark MD Upper Extremity Ultrasound 07/13/17 0000 Signed Impressions: Service Date/Time: July 09:19 - CONCLUSION: Interval decrease in the size of the enlarged axillary lymph node. Jayden Brunner MD Objective Remarks GENERAL: Awake, alert, pleasant, in NAD. SKIN: Warm and dry. LUE with scattered open areas that are dry, with no redness or warmth noted, open to air. HEAD: Normocephalic. EYES: No scleral icterus. No injection or drainage. NECK: Supple, trachea midline. No JVD or lymphadenopathy. CARDIOVASCULAR: Regular rate and rhythm without murmurs, gallops, or rubs. RESPIRATORY: Breath sounds equal bilaterally. No accessory muscle use. GASTROINTESTINAL: Abdomen soft, non-tender, nondistended. Normoactive bowel sounds in all quadrants. MUSCULOSKELETAL: No cyanosis, or edema. Moves all extremities, ambulating without difficulties or assistive devices. NEUROLOGIC: Awake and alert, moving all extremities with no noted weakness. Speech is clear, hard of hearing, no facial droop noted. A/P Problem List: (1) HER2-positive carcinoma of right breast ICD Code: C50.911 - Malignant neoplasm of unspecified site of right female breast (2) Deep venous thrombosis of left upper extremity ICD Code: I82.622 - Acute embolism and thrombosis of deep veins of left upper extremity (3) Psychosis not due to substance or known physiological condition ICD Code: F29 - Unspecified psychosis not due to a substance or known physiological condition Assessment and Plan 52 years old female with psychosis, schizophrenia, LUE DVT, breast CA, who is HER2 positive. Schizophrenia - Treatment per psychiatry. LUE DVT - Patient seen and evaluated by hem/onc. On lovenox therapeutic dose. - LUE with little to no swelling noted, no pain reported. (if no improvement of LUE by US on LMWH, Dr Sewell planned to remove port (likely in 6 weeks when chemo finish) HER 2 shirley positive R breast CA - on chemo- last dose 07/14/17 - planned taxol every week with Dr Villareal. Left 2nd toe and right big toe cellulitis - - Resolved S/P total 10 days course of Cefazolin + Keflex. 07/25. Superficial excoriations/ wounds on left upper arm - improved - continue Bacitracin bid DVT prophylaxis-lovenox Discussed with nurse. Nata Sanderson Jul 26, 2017 09:53
--- NOTE | 2017-07-26 14:00 | HHI.PYPN ---
Subjective Remarks Patient seen for follow-up, chart reviewed. Mental Status Examination Appearance: Appropriate Consciousness: Alert Orientation: Person, Place, Date/Time Motor Activity: Normal gait Speech: Unremarkable Language: Adequate Fund of Knowledge: Inadequate Attention and Concentration: Adequate Memory: Impaired Mood: Appropriate Affect: Appropriate Thought Process & Associations: Tangential Thought Content: Bizarre thinking, Delusional, Other Delusion Type: Bizarre (pertaining to her daughter who was allegedly missing), Paranoid Suicidal Ideation: No Suicidal Plan: No Suicidal Intention: No Homicidal Ideation: No Homicidal Plan: No Homicidal Intention: No Insight: Poor Judgment: Impulsive Results Vitals/IOs Vital Signs Date Time Temp Pulse Resp B/P (MAP) Pulse Ox O2 Delivery O2 Flow Rate FiO2 07/26/17 06:09 98.2 67 15 119/66 (83) 98 Intake and Output 07/26/17 07/26/17 07/27/17 08:00 16:00 00:00 Intake Total 720 ml 480 ml Balance 720 ml 480 ml Assessment & Plan Problem List: (1) Psychosis not due to substance or known physiological condition ICD Codes: F29 - Unspecified psychosis not due to a substance or known physiological condition Assessment & Plan Estimated LOS: Yadiel Dickens MD Jul 26, 2017 14:00
--- NOTE | 2017-07-26 15:29 | HHI.PYPN ---
Subjective Remarks Patient seen for follow-up, chart reviewed. Discussion nursing staff reported the patient has not had any behavioral changes, slept well. Patient was found lying in hospital bed initially guarded but later interacting well with the interview. She reports having slept well no physical complaints at this time, eating and drinking well tolerating medications well. Patient noted to have perseveration on her delusions but did state she was missing her daughter as she states that she had not seen her with past couple of years and was wondering whether patient daughter was still alive. She agreed to participate in groups and activities today. Review of Systems Except as stated in HPI: all other systems reviewed are Neg Mental Status Examination Appearance: Appropriate Consciousness: Alert Orientation: Person, Place, Date/Time Motor Activity: Normal gait Speech: Unremarkable Language: Adequate Fund of Knowledge: Inadequate Attention and Concentration: Adequate Memory: Impaired Mood: Appropriate Affect: Appropriate Thought Process & Associations: Tangential Thought Content: Bizarre thinking, Delusional, Other Hallucination Type: None Delusion Type: Bizarre (pertaining to her daughter who was allegedly missing), Paranoid Suicidal Ideation: No Suicidal Plan: No Suicidal Intention: No Homicidal Ideation: No Homicidal Plan: No Homicidal Intention: No Insight: Poor Judgment: Impulsive Results Vitals/IOs Vital Signs Date Time Temp Pulse Resp B/P (MAP) Pulse Ox O2 Delivery O2 Flow Rate FiO2 07/26/17 06:09 98.2 67 15 119/66 (83) 98 Intake and Output 07/26/17 07/26/17 07/26/17 07:59 15:59 23:59 Intake Total 720 ml 480 ml Balance 720 ml 480 ml Assessment & Plan Problem List: (1) Psychosis not due to substance or known physiological condition ICD Codes: F29 - Unspecified psychosis not due to a substance or known physiological condition Assessment & Plan Patient at this time has not had a behavioral disturbances, noted to be perseverative or expressing paranoid ideation although patient has paranoia and bizarre delusions at baseline despite treatment. Patient appears to be less perseverative on these delusions and responding to internal stimuli when compliant with treatment and she is now noted to be less disorganized and more engaged. We will continue current treatment. Continue to encourage patient to participate in groups and activities on the unit. Discharge planning in progress. Justification for Cont. Inpt. At risk of further decompensation of lower level of care Discharge Planning To be determined. Yadiel Enamorado MD Jul 26, 2017 15:29
[2017-07-26 18:36] VITALS: BP 127/83; PULSE 74; RESP 18; TEMP 98; O2SAT 100
[2017-07-26] MEDS: ALUMINUM/MAGNESIUM/SIMETH 30 ML CUP PO PRN (21:17)
[2017-07-26] MEDS: BACITRACIN TOP OINT 15 GM TUBE TOPICAL SCH (21:18)
[2017-07-27 06:46] VITALS: BP 111/70; PULSE 67; RESP 18; TEMP 97.6; O2SAT 100
[2017-07-27] MEDS: SODIUM CHLORIDE 0.9% FLUSH 10 ML FLUSH IV FLUSH SCH ×2 (09:00→21:18)
[2017-07-27] MEDS: BACITRACIN TOP OINT 15 GM TUBE TOPICAL SCH ×2 (09:38→21:18)
[2017-07-27] MEDS: HALOPERIDOL 5 MG TAB PO SCH ×2 (09:38→21:00)
[2017-07-27 09:39] LABS: AUTOMATED NEUTROPHIL # 2.9 TH/MM3 (1.8-7.7); BASOPHIL % 0.5 % (0.0-2.0); EOSINOPHIL # 0.1 TH/MM3 (0-0.4); EOSINOPHIL % 2.2 % (0.0-4.0); HEMATOCRIT 36.1 % (35.0-46.0); HEMOGLOBIN 12.1 GM/DL (11.6-15.3); LYMPH % 28.2 % (9.0-44.0); LYMPHOCYTE # 1.3 TH/MM3 (1.0-4.8); MEAN CELL VOLUME 90.1 FL (80.0-100.0); MEAN CORPUSCULAR HEMOGLOBIN 30.2 PG (27.0-34.0); MEAN CORPUSCULAR HGB CONC 33.5 % (32.0-36.0); MEAN PLATELET VOLUME 8.7 FL (7.0-11.0); MONO % 4.6 % (0.0-8.0); MONOCYTE # 0.2 TH/MM3 (0-0.9); NEUT % 64.5 % (16.0-70.0); PLATELET COUNT 288 TH/MM3 (150-450); RED BLOOD COUNT 4.01 MIL/MM3 (4.00-5.30); RED CELL DISTRIBUTION WIDTH 15.9 % (11.6-17.2); WHITE BLOOD COUNT 4.5 TH/MM3 (4.0-11.0)
[2017-07-27 10:10] LABS: ALBUMIN 3.1 GM/DL (3.4-5.0); ALT (GPT) 73 U/L (10-53); AST (GOT) 27 U/L (15-37); BICARBONATE 30.6 MEQ/L (21.0-32.0); BLOOD UREA NITROGEN 11 MG/DL (7-18); CALCIUM 8.4 MG/DL (8.5-10.1); CHLORIDE 105 MEQ/L (98-107); CREATININE 0.47 MG/DL (0.50-1.00); GLOMERULAR FILTRATION RATE 140 ML/MIN (>89); GLUCOSE,RANDOM 89 MG/DL (74-106); SODIUM (NA) 141 MEQ/L (136-145)
[2017-07-27 10:12] LABS: ALKALINE PHOSPHATASE 52 U/L (45-117); TOTAL BILIRUBIN ADULT 0.6 MG/DL (0.2-1.0)
--- NOTE | 2017-07-27 10:26 | HHI.PR ---
Subjective Remarks Follow-up visit for breast cancer, DVT of left upper extremity, and psychosis. Patient seen and examined sitting up in chair in the hallway in no acute distress. She reports that left arm swelling has improved, denies any pain or discomfort. Denies any fevers, chills, nausea, vomiting, diarrhea, headache, shortness of breath or cough. 2- seen lying in bed No new complaints Denies any pain shortness of breath or chest pain at the moment Objective Vitals Vital Signs Date Time Temp Pulse Resp B/P (MAP) Pulse Ox O2 Delivery O2 Flow Rate FiO2 07/27/17 06:46 97.6 67 18 111/70 (84) 100 07/26/17 18:36 98.0 74 18 127/83 (98) 100 I/O 07/26/17 07/26/17 07/26/17 07/27/17 07/27/17 07/27/17 06:59 14:59 22:59 06:59 14:59 22:59 Intake Total 480 ml 2400 ml 1440 ml 720 ml Balance 480 ml 2400 ml 1440 ml 720 ml Intake Oral 480 ml 2400 ml 1440 ml 720 ml # Voids 1 1 2 Result Diagram: 07/27/17 0929 07/27/17 0929 Other Results Laboratory Tests Test 07/27/17 09:29 White Blood Count 4.5 TH/MM3 Red Blood Count 4.01 MIL/MM3 Hemoglobin 12.1 GM/DL Hematocrit 36.1 % Mean Corpuscular Volume 90.1 FL Mean Corpuscular Hemoglobin 30.2 PG Mean Corpuscular Hemoglobin Concent 33.5 % Red Cell Distribution Width 15.9 % Platelet Count 288 TH/MM3 Mean Platelet Volume 8.7 FL Neutrophils (%) (Auto) 64.5 % Lymphocytes (%) (Auto) 28.2 % Monocytes (%) (Auto) 4.6 % Eosinophils (%) (Auto) 2.2 % Basophils (%) (Auto) 0.5 % Neutrophils # (Auto) 2.9 TH/MM3 Lymphocytes # (Auto) 1.3 TH/MM3 Monocytes # (Auto) 0.2 TH/MM3 Eosinophils # (Auto) 0.1 TH/MM3 Basophils # (Auto) 0.0 TH/MM3 CBC Comment DIFF FINAL Differential Comment Blood Urea Nitrogen 11 MG/DL Creatinine 0.47 MG/DL Random Glucose 89 MG/DL Total Protein 6.0 GM/DL Albumin 3.1 GM/DL Calcium Level 8.4 MG/DL Alkaline Phosphatase 52 U/L Aspartate Amino Transf (AST/SGOT) 27 U/L Alanine Aminotransferase (ALT/SGPT) 73 U/L Total Bilirubin 0.6 MG/DL Sodium Level 141 MEQ/L Potassium Level 3.9 MEQ/L Chloride Level 105 MEQ/L Carbon Dioxide Level 30.6 MEQ/L Anion Gap 5 MEQ/L Estimat Glomerular Filtration Rate 140 ML/MIN Imaging Last Impressions Toe X-Ray 07/14/17 0000 Signed Impressions: Service Date/Time: Friday, July 14, 2017 10:34 - CONCLUSION: 1. Small exostosis of the toe. 2. No acute fracture or dislocation. Lj Clark MD Upper Extremity Ultrasound 07/13/17 0000 Signed Impressions: Service Date/Time: July 09:19 - CONCLUSION: Interval decrease in the size of the enlarged axillary lymph node. Jayden Brunner MD Objective Remarks GENERAL: Awake, alert, pleasant, in NAD. SKIN: Warm and dry. LUE with scattered open areas that are dry, with no redness or warmth noted, open to air. HEAD: Normocephalic. EYES: No scleral icterus. No injection or drainage. NECK: Supple, trachea midline. No JVD or lymphadenopathy. CARDIOVASCULAR: Regular rate and rhythm without murmurs, gallops, or rubs. RESPIRATORY: Breath sounds equal bilaterally. No accessory muscle use. GASTROINTESTINAL: Abdomen soft, non-tender, nondistended. Normoactive bowel sounds in all quadrants. MUSCULOSKELETAL: No cyanosis, or edema. Moves all extremities, ambulating without difficulties or assistive devices. NEUROLOGIC: Awake and alert, moving all extremities with no noted weakness. Speech is clear, hard of hearing, no facial droop noted. Insight and judgment is good Mood and behavior somewhat appropriate Medications and IVs Current Medications Famotidine (Pepcid) 20 mg ONCE PO ; Start 07/11/17 at 21:15; Stop 07/11/17 at 23 :59; Status DC Haloperidol (Haldol) 7.5 mg BID PO Last administered on 07/24/17at 20:47; Start 07/12/17 at 09:00; Stop 07/25/17 at 08:58; Status DC Zolpidem Tartrate (Ambien) 5 mg HS PRN PO INSOMNIA Last administered on at 20:53; Start 07/11/17 at 21:15 Enoxaparin Sodium (Lovenox Inj) 90 mg Q12H SQ Last administered on 07/26/17at 21 :19; Start 07/11/17 at 22:00 Lorazepam (Ativan) 1 mg Q6H PRN PO MODERATE TO SEVERE ANXIETY Last administered on 07/19/17at 05:03; Start 07/11/17 at 21:15 Lorazepam (Ativan Inj) 1 mg Q6H PRN IM MODERATE TO SEVERE ANXIETY; Start at 21:15 Acetaminophen (Tylenol) 650 mg Q4H PRN PO Pain 1-5 or Temp >101F Last administered on 07/17/17at 20:42; Start 07/11/17 at 21:15 Magnesium Hydroxide (Milk Of Magnesia Liq) 30 ml DAILY PRN PO CONSTIPATION; Start 07/11/17 at 21:15 Al Hydrox/Mg Hydrox/Simethicone (Mag-Al Plus Susp Liq) 30 ml Q6H PRN PO DYSPEPSIA Last administered on 07/26/17at 21:17; Start 07/11/17 at 21:15 Nicotine (Habitrol 21 Mg Patch.24 Hr) 1 patch DAILY PRN T-DERMAL nicotine craving; Start 07/11/17 at 21:15 Benztropine Mesylate (Cogentin) 1 mg Q12H PRN PO EXTRA PYRAMIDAL SYMPTOMS; Start 07/11/17 at 21:15 Benztropine Mesylate (Cogentin Inj) 1 mg Q12H PRN IM EXTRA PYRAMIDAL SYMPTOMS; Start 07/11/17 at 21:15 Oxycodone/ Acetaminophen (Percocet 5-325 Mg) 1 tab Q6H PRN PO PAIN 6-10 Last administered on 07/14/17at 14:25; Start 07/11/17 at 21:15 Miscellaneous (Pill Splitter) 1 ea UNSCH PRN OTHER SEE LABEL COMMENTS; Start at 21:30 Potassium Chloride (KCl) 20 meq ONCE ONCE PO Last administered on 07/12/17at 12 :47; Start 07/12/17 at 12:30; Stop 07/12/17 at 12:31; Status DC Cephalexin Monohydrate (Keflex) 500 mg Q6HR PO Last administered on 07/14/17at 06 :00; Start 07/13/17 at 12:00; Stop 07/14/17 at 08:37; Status DC Paclitaxel 151 mg/ Sodium Chloride 275.1667 ml @ 275.... ONCE ONCE IV ; Start 07/14/17 at 15:30; Stop 07/14/17 at 16:29; Status Cancel Lorazepam (Ativan Inj) 0.5 mg ONCE PRN IV SEE LABEL COMMENTS; Start 07/13/17 at 16:00; Stop 07/14/17 at 23:59; Status Cancel Dexamethasone Sodium Phosphate 10 mg/Sodium Chloride 52.5 ml @ 210 mls/hr ONCE PRN IV SEE LABEL COMMENTS; Start 07/14/17 at 16:00; Stop 07/14/17 at 23:59; Status Cancel Diphenhydramine HCl (Benadryl) 25 mg ONCE PRN PO SEE LABEL COMMENTS; Start 07/14 at 15:45; Stop 07/14/17 at 23:59; Status Cancel Famotidine (Pepcid) 20 mg ONCE PRN PO SEE LABEL COMMENTS; Start 07/14/17 at 15: 45; Stop 07/14/17 at 23:59; Status Cancel Cefazolin Sodium 1000 mg/Sodium Chloride 100 ml @ 200 mls/hr Q8H IV Last administered on 07/17/17at 04:00; Start 07/14/17 at 12:00; Stop 07/17/17 at 10:57; Status DC Dexamethasone Sodium Phosphate 10 mg/Sodium Chloride 52.5 ml @ 220 mls/hr ONCE ONCE IV Last administered on 07/14/17at 15:49; Start 07/14/17 at 15:00; Stop 07/14/17 at 15:14; Status DC Diphenhydramine HCl (Benadryl) 25 mg ONCE ONCE PO Last administered on at 15:49; Start 07/14/17 at 15:00; Stop 07/14/17 at 15:01; Status DC Famotidine (Pepcid) 20 mg ONCE ONCE PO Last administered on 07/14/17at 15:49; Start 07/14/17 at 15:00; Stop 07/14/17 at 15:01; Status DC Paclitaxel 154.4 mg/Sodium Chloride 275.7333 ml @ 275.... ONCE ONCE IV Last administered on 07/14/17at 17:22; Start 07/14/17 at 16:00; Stop 07/14/17 at 16:59; Status DC Sodium Chloride 250 ml @ 0 mls/hr ONCE ONCE IV Last administered on 07/14/17at 16:00; Start 07/14/17 at 16:00; Stop 07/14/17 at 16:01; Status DC Lorazepam (Ativan Inj) 1 mg STAT STAT IV PUSH Last administered on 07/14/17at 16 :00; Start 07/14/17 at 15:52; Stop 07/14/17 at 15:53; Status DC Sodium Chloride (NS Flush) 2 ml BID IV FLUSH Last administered on 07/23/17at 11: 05; Start 07/15/17 at 21:00 Cephalexin Monohydrate (Keflex) 500 mg Q6HR PO Last administered on 07/25/17at 17:11; Start 07/17/17 at 12:00; Stop 07/25/17 at 17:12; Status DC Sodium Chloride 250 ml @ 0 mls/hr ONCE ONCE IV ; Start 07/21/17 at 14:45; Stop 07/21/17 at 14:45; Status DC Lorazepam (Ativan Inj) 0.5 mg ONCE ONCE IV Last administered on 07/21/17at 15:36 ; Start 07/21/17 at 16:00; Stop 07/21/17 at 16:01; Status DC Sodium Chloride 250 ml @ 0 mls/hr ONCE ONCE IV Last administered on 07/21/17at 17:09; Start 07/21/17 at 17:00; Stop 07/21/17 at 17:01; Status DC Dexamethasone Sodium Phosphate 10 mg/Sodium Chloride 52.5 ml @ 210 mls/hr ONCE ONCE IV Last administered on 07/21/17at 15:42; Start 07/21/17 at 16:00; Stop 07/21/17 at 16:14; Status DC Diphenhydramine HCl (Benadryl) 25 mg ONCE ONCE PO Last administered on at 15:36; Start 07/21/17 at 16:00; Stop 07/21/17 at 16:01; Status DC Paclitaxel 156.8 mg/Sodium Chloride 276.1333 ml @ 276.... ONCE ONCE IV Last administered on 07/21/17 17:09; Start 07/21/17 at 17:00; Stop 07/21/17 at 17:59; Status DC Famotidine (Pepcid) 20 mg ONCE ONCE PO Last administered on 07/21/17at 15:36; Start 07/21/17 at 16:00; Stop 07/21/17 at 16:01; Status DC Heparin Sodium (Porcine) (Heparin Central Flush) 400 units ONCE ONCE IV FLUSH Last administered on 07/23/17 13:04; Start 07/23/17 at 12:30; Stop 07/23/17 at 12:31; Status DC Haloperidol (Haldol) 10 mg BID PO Last administered on 07/27/17 09:38; Start 07/25/17 at 10:30 Bacitracin (Baciguent Oint) 1 applic Q12HR TOPICAL Last administered on 09:38; Start 07/26/17 at 21:00 A/P Problem List: (1) HER2-positive carcinoma of right breast ICD Code: C50.911 - Malignant neoplasm of unspecified site of right female breast (2) Deep venous thrombosis of left upper extremity ICD Code: I82.622 - Acute embolism and thrombosis of deep veins of left upper extremity (3) Psychosis not due to substance or known physiological condition ICD Code: F29 - Unspecified psychosis not due to a substance or known physiological condition Assessment and Plan 52 years old female with psychosis, schizophrenia, LUE DVT, breast CA, who is HER2 positive. Schizophrenia - Treatment per psychiatry. LUE DVT - Patient seen and evaluated by hem/onc. On lovenox therapeutic dose. - LUE with little to no swelling noted, no pain reported. (if no improvement of LUE by US on LMWH, Dr Sewell planned to remove port (likely in 6 weeks when chemo finish) HER 2 shirley positive R breast CA - on chemo- last dose 07/14/17 - planned taxol every week with Dr Villareal. Left 2nd toe and right big toe cellulitis - - Resolved S/P total 10 days course of Cefazolin + Keflex. 07/25. Superficial excoriations/ wounds on left upper arm - improved - continue Bacitracin bid DVT prophylaxis-lovenox Labs reviewed stable Discussed with nurse. Discharge Planning Pending psychiatric clearance Brandon Teixeira DO Jul 27, 2017 10:26
[2017-07-27] MEDS: ENOXAPARIN SODIUM 100 MG/ML SYRINGE SQ SCH ×2 (10:36→22:00)
--- NOTE | 2017-07-27 12:21 | PD.ONC.PN ---
Subjective Subjective Remarks Afebrile overnight. Patient resting in bed in nad. No complaints. ready for chemo tomorrow. asks what will happen after she is finished with chemo. we discuss plans for surgery. Objective Data Date Time Temp Pulse Resp B/P (MAP) Pulse Ox O2 Delivery O2 Flow Rate FiO2 07/27/17 06:46 97.6 67 18 111/70 (84) 100 07/26/17 18:36 98.0 74 18 127/83 (98) 100 07/27/17 07/27/17 07/27/17 07:00 15:00 23:00 Intake Total 720 ml Balance 720 ml Result Diagram: 07/27/17 0929 07/27/17 0929 Laboratory Results Laboratory Tests Test 07/27/17 09:29 White Blood Count 4.5 TH/MM3 Red Blood Count 4.01 MIL/MM3 Hemoglobin 12.1 GM/DL Hematocrit 36.1 % Mean Corpuscular Volume 90.1 FL Mean Corpuscular Hemoglobin 30.2 PG Mean Corpuscular Hemoglobin Concent 33.5 % Red Cell Distribution Width 15.9 % Platelet Count 288 TH/MM3 Mean Platelet Volume 8.7 FL Neutrophils (%) (Auto) 64.5 % Lymphocytes (%) (Auto) 28.2 % Monocytes (%) (Auto) 4.6 % Eosinophils (%) (Auto) 2.2 % Basophils (%) (Auto) 0.5 % Neutrophils # (Auto) 2.9 TH/MM3 Lymphocytes # (Auto) 1.3 TH/MM3 Monocytes # (Auto) 0.2 TH/MM3 Eosinophils # (Auto) 0.1 TH/MM3 Basophils # (Auto) 0.0 TH/MM3 CBC Comment DIFF FINAL Differential Comment Blood Urea Nitrogen 11 MG/DL Creatinine 0.47 MG/DL Random Glucose 89 MG/DL Total Protein 6.0 GM/DL Albumin 3.1 GM/DL Calcium Level 8.4 MG/DL Alkaline Phosphatase 52 U/L Aspartate Amino Transf (AST/SGOT) 27 U/L Alanine Aminotransferase (ALT/SGPT) 73 U/L Total Bilirubin 0.6 MG/DL Sodium Level 141 MEQ/L Potassium Level 3.9 MEQ/L Chloride Level 105 MEQ/L Carbon Dioxide Level 30.6 MEQ/L Anion Gap 5 MEQ/L Estimat Glomerular Filtration Rate 140 ML/MIN Administered Medications Medications (Trade) Dose Ordered Sig/Renard Route PRN Reason Start Time Stop Time Status Last Admin Dose Admin Zolpidem Tartrate (Ambien) 5 mg HS PRN PO INSOMNIA 07/11/17 21:15 07/25/17 20:53 Enoxaparin Sodium (Lovenox Inj) 90 mg Q12H SQ 07/11/17 22:00 07/27/17 10:36 Lorazepam (Ativan) 1 mg Q6H PRN PO MODERATE TO SEVERE ANXIETY 07/11/17 21:15 07/19/17 05:03 Acetaminophen (Tylenol) 650 mg Q4H PRN PO Pain 1-5 or Temp >101F 07/11/17 21:15 07/17/17 20:42 Al Hydrox/Mg Hydrox/Simethicone (Mag-Al Plus Susp Liq) 30 ml Q6H PRN PO DYSPEPSIA 07/11/17 21:15 07/26/17 21:17 Oxycodone/ Acetaminophen (Percocet 5-325 Mg) 1 tab Q6H PRN PO PAIN 6-10 07/11/17 21:15 07/14/17 14:25 Sodium Chloride (NS Flush) 2 ml BID IV FLUSH 07/15/17 21:00 07/23/17 11:05 Haloperidol (Haldol) 10 mg BID PO 07/25/17 10:30 07/27/17 09:38 Bacitracin (Baciguent Oint) 1 applic Q12HR TOPICAL 07/26/17 21:00 07/27/17 09:38 Objective Remarks GENERAL: calm female, lying in bed resting. SKIN: Warm and dry. HEAD: Normocephalic. EYES: No injection or drainage. NECK: Supple, trachea midline. BREAST: right breast mass just lateral to nipple is less than the size of a godwin. CARDIOVASCULAR: Regular rate and rhythm RESPIRATORY: Breath sounds equal bilaterally. No accessory muscle use. GASTROINTESTINAL: Abdomen soft, non-tender, nondistended. EXTREMITIES: No cyanosis NEUROLOGICAL: awake and alert, normal speech. Assessment/Plan Problem List: (1) HER2-positive carcinoma of right breast ICD Codes: C50.911 - Malignant neoplasm of unspecified site of right female breast Plan: 07/14: continue weekly therapy with Taxol. does not need Herceptin this week, was given q3 weeks dosing in clinic. 07/20/17. Continue weekly Taxol. Next week next dose Herceptin/Perjeta/Taxol is due. We discussed goal typically to give neoadjuvant therapy for 12 weeks or best response. She is tolerating chemotherapy well. She seems to understand the need to treat her cancer. 07/21: Taxol today. monitor for adverse reaction. 07/27: obtain labs, prepare for Herceptin/Perjeta and Taxol tomorrow. (2) Deep venous thrombosis of left upper extremity ICD Codes: I82.622 - Acute embolism and thrombosis of deep veins of left upper extremity Plan: --on therapeutic dose Lovenox If her left arm swelling does not respond to her low-molecular weight heparin we may have to remove the port. is likely given the nature of the catheter associated clots. 07/20/17. L arm swelling improved. She understands that it was a blood clot, she denies any bleeding on anticoagulation.j She is no longer claiming that someone broke her arm. 07/21/17: continue Lovenox. 07/27: tolerating Lovenox. Assessment 52y/o female with locally advanced HER2/shirley over expressing ER positive right breast cancer currently admitted for psychosis. 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 h/o Chemotherapy induced anemia. Plan 1. monitor labs 2. prepare for Herceptin/Perjeta/Taxol tomorrow. Attending Statement The exam, history, and the medical decision-making described in the above note were completed with the assistance of the mid-level provider. I reviewed and agree with the findings presented. I attest that I had a [id number] encounter with the patient on the same day, and personally performed and documented my assessment and findings in the medical record. Doing well. More organized, feeling bored, wants a magazine to read with articles. R axillary adenopathy resolved. R breast mass persist. Discussed surgical option will require resection of R breast nipple. Discussed consultation with surgeon and plastic surgeon so she can consider her options. In light of her psychiatric illness, immediate reconstruction with placement of implant post definitive mastectomy maybe best option. She understand the need to continue neoadjuvant chemotherapy. Baseline mammogram and MRI were not available in patient. She is monitored clinically. Idalia Disla Jul 27, 2017 12:21 Alexa Villareal MD Jul 27, 2017 17:48
--- NOTE | 2017-07-27 17:35 | HHI.PYPN ---
Subjective Remarks Patient seen for follow-up, chart reviewed. Discussion nursing staff reported the patient and no changes recently in the compliant with treatment. Patient was found by in hospital bed, cooperative. Patient reports feeling "good" denies any physical complaints, aware that she has treatment tomorrow. Patient noted to be perseverative on previous episodes of paranoia. Patient agrees to participate in groups and activities today. Review of Systems Except as stated in HPI: all other systems reviewed are Neg Mental Status Examination Appearance: Appropriate Consciousness: Alert Orientation: Person, Place, Date/Time Motor Activity: Normal gait Speech: Unremarkable Language: Adequate Fund of Knowledge: Inadequate Attention and Concentration: Adequate Memory: Impaired Mood: Appropriate Affect: Appropriate Thought Process & Associations: Tangential Thought Content: Bizarre thinking, Delusional, Other Hallucination Type: None Delusion Type: Bizarre (pertaining to her daughter who was allegedly missing), Paranoid Suicidal Ideation: No Suicidal Plan: No Suicidal Intention: No Homicidal Ideation: No Homicidal Plan: No Homicidal Intention: No Insight: Poor Judgment: Impulsive Results Labs Labs reviewed Test 07/27/17 09:29 White Blood Count 4.5 TH/MM3 Red Blood Count 4.01 MIL/MM3 Hemoglobin 12.1 GM/DL Hematocrit 36.1 % Mean Corpuscular Volume 90.1 FL Mean Corpuscular Hemoglobin 30.2 PG Mean Corpuscular Hemoglobin Concent 33.5 % Red Cell Distribution Width 15.9 % Platelet Count 288 TH/MM3 Mean Platelet Volume 8.7 FL Neutrophils (%) (Auto) 64.5 % Lymphocytes (%) (Auto) 28.2 % Monocytes (%) (Auto) 4.6 % Eosinophils (%) (Auto) 2.2 % Basophils (%) (Auto) 0.5 % Neutrophils # (Auto) 2.9 TH/MM3 Lymphocytes # (Auto) 1.3 TH/MM3 Monocytes # (Auto) 0.2 TH/MM3 Eosinophils # (Auto) 0.1 TH/MM3 Basophils # (Auto) 0.0 TH/MM3 CBC Comment DIFF FINAL Differential Comment Blood Urea Nitrogen 11 MG/DL Creatinine 0.47 MG/DL Random Glucose 89 MG/DL Total Protein 6.0 GM/DL Albumin 3.1 GM/DL Calcium Level 8.4 MG/DL Alkaline Phosphatase 52 U/L Aspartate Amino Transf (AST/SGOT) 27 U/L Alanine Aminotransferase (ALT/SGPT) 73 U/L Total Bilirubin 0.6 MG/DL Sodium Level 141 MEQ/L Potassium Level 3.9 MEQ/L Chloride Level 105 MEQ/L Carbon Dioxide Level 30.6 MEQ/L Anion Gap 5 MEQ/L Estimat Glomerular Filtration Rate 140 ML/MIN Vitals/IOs Vital Signs Date Time Temp Pulse Resp B/P (MAP) Pulse Ox O2 Delivery O2 Flow Rate FiO2 07/27/17 06:46 97.6 67 18 111/70 (84) 100 Intake and Output 07/27/17 07/27/17 07/28/17 08:00 16:00 00:00 Intake Total 1920 ml Balance 1920 ml Assessment & Plan Problem List: (1) Psychosis not due to substance or known physiological condition ICD Codes: F29 - Unspecified psychosis not due to a substance or known physiological condition Assessment & Plan Patient noted to have episodes of paranoia and bizarre delusions since last evening. Patient noted to be more engaging and less irritable. Continue current treatment. Continue monitoring mood and behavior. Continue recommendations as per prior medical team. Discharge planning in progress. Justification for Cont. Inpt. At risk for further decompensation if at lower level of care. Discharge Planning Patient this time patient responded to treatment. #2 disturbances recently. Patient to continue treatment. Patient continue recommendations by medical team. Continue to encourage patient to participate in groups and activities. Discharge planning in progress. Yadiel Enamorado MD Jul 27, 2017 17:35
[2017-07-27 18:00] VITALS: BP 119/74; PULSE 80; RESP 18; TEMP 97.2; O2SAT 99
[2017-07-28 06:18] VITALS: BP 115/61; PULSE 58; RESP 16; TEMP 97.4; O2SAT 98
[2017-07-28] MEDS: HALOPERIDOL 5 MG TAB PO SCH ×2 (08:35→21:00)
[2017-07-28] MEDS: BACITRACIN TOP OINT 15 GM TUBE TOPICAL SCH ×2 (08:35→21:00)
[2017-07-28] MEDS: SODIUM CHLORIDE 0.9% FLUSH 10 ML FLUSH IV FLUSH SCH ×2 (08:35→21:00)
[2017-07-28] MEDS: ENOXAPARIN SODIUM 100 MG/ML SYRINGE SQ SCH ×2 (09:58→22:00)
--- NOTE | 2017-07-28 10:41 | MB ---
cc: MARK LA DATE OF CONSULTATION 07/28/2017 REASON FOR CONSULTATION Locally advanced HER-2 positive right breast cancer, status post neoadjuvant Herceptin. HISTORY OF PRESENT ILLNESS The patient is a 52-year-old female who was diagnosed with locally advanced right breast cancer in late May 2017 and found to be HER-2 positive. The patient was subsequently treated with Taxol and Herceptin. The patient has tolerated this well and surgical oncology was requested to evaluate the patient for operative management of the patient's breast and axilla. The patient has no new complaints and states she has noticed the lump has gotten much smaller in her right breast. PAST MEDICAL HISTORY 1. History of psychosis, recurrent, currently admitted to [facility]. 2. Catheter tip associated DVT, left arm. 3. Chemotherapy-induced anemia. PAST SURGICAL HISTORY 1. Previous breast surgery. 2. Previous right axillary biopsy. 3. Previous Port-A-Cath placement. PHYSICAL EXAMINATION VITAL SIGNS: Blood pressure 123/83, temperature 97.4 degrees, pulse rate 76, respiratory rate 16, O2 saturation 98%. GENERAL: The patient is a well-developed, well-nourished female in no acute distress. HEENT: Head normocephalic, atraumatic. Pupils round and reactive to light and accommodation. Sclera is anicteric. Oral cavity is clear. Airway is patent. NECK: Supple. No JVD. LUNGS: Breath sounds present bilaterally. Nonlabored breathing pattern. HEART: Regular rate and rhythm. No murmurs. BREASTS: Breast exam with the nurse practitioner, Emperatriz Diamond as a drawing supervisor is performed. In the right breast there is some residual mass approximately 2-3 cm in the right nipple-areolar complex at 9 o'clock. No other masses in the right breast. No nipple discharge or skin changes. The right axilla reveals some small soft palpable nodes, reactive versus some residual disease, without matting or distinct mass. ABDOMEN: Soft, nontender to palpation. Normal bowel sounds. EXTREMITIES: No clubbing, cyanosis or edema. NEUROLOGIC: The patient is alert and oriented. Her judgment and insight seem intact. She asked appropriate questions and seemed to respond appropriately to reply. LABORATORY Hemoglobin is 12.1. ASSESSMENT AND PLAN The patient is a 52-year-old female with locally advanced clinical stage III breast cancer, status post neoadjuvant Herceptin. The patient would benefit from surgery. The patient will likely need a modified radical mastectomy for local control of the breast and linsey disease. Will discuss the case again at breast conference. Will also discuss the case with Dr. Villareal for optimal timing. Will schedule her again in the near future based on a break from her chemotherapy as clinically appropriate. Thank you very much for this consultation. Will work towards the scheduling of surgery and inform the patient on her planned surgery date. Mark La MD AWG/BT /10:08 AM /10:17 AM
--- NOTE | 2017-07-28 10:58 | HHI.PYPN ---
Subjective Remarks The patient was seen today for psychiatric evaluation. Chart was reviewed. The patient was seen along with nursing charge and medical student Dr. Barrientos. On psychiatric evaluation the patient is pleasant, calm and cooperative. She shows periodic disorganized speech and tangentiality, but other than that the patient is able to answer all my questions appropriately. Post good mood, she said that she feels much better today, denies pain, denies distress, denies anxiety, she denies suicidal and homicidal ideation, she denies visual and auditory hallucinations. The patient has been compliant with her medications, and side effects. As per nurse in charge, the patient has some episodes of hostility, irritability, agitation, but she is usually verbally dsescalated with no problem. Review of Systems Psychiatric: COMPLAINS OF: Delusions Except as stated in HPI: all other systems reviewed are Neg Mental Status Examination Appearance: Appropriate Consciousness: Alert Orientation: Person, Place, Date/Time Motor Activity: Normal gait Speech: Unremarkable Language: Adequate Fund of Knowledge: Inadequate Attention and Concentration: Adequate Memory: Impaired Mood: Appropriate Affect: Appropriate Thought Process & Associations: Tangential Thought Content: Bizarre thinking, Delusional, Other Hallucination Type: None Delusion Type: Bizarre (pertaining to her daughter who was allegedly missing), Paranoid Suicidal Ideation: No Suicidal Plan: No Suicidal Intention: No Homicidal Ideation: No Homicidal Plan: No Homicidal Intention: No Insight: Poor Judgment: Impulsive Results Vitals/IOs Vital Signs Date Time Temp Pulse Resp B/P (MAP) Pulse Ox O2 Delivery O2 Flow Rate FiO2 07/28/17 06:18 97.4 58 16 115/61 (79) 98 Intake and Output 07/28/17 07/28/17 07/29/17 08:00 16:00 00:00 Intake Total 0 ml 360 ml Balance 0 ml 360 ml Assessment & Plan Problem List: (1) Psychosis not due to substance or known physiological condition ICD Codes: F29 - Unspecified psychosis not due to a substance or known physiological condition Assessment & Plan: Patient continues to show episodes of agitation, irritability, disorganized behavior and speech, tangentiality, but other than that she has been responding appropriately to medications. Continue current psychotropic regimen at this moment. Assessment & Plan Estimated LOS: days Justification for Cont. Inpt. patient has a high risk to decompensate at a lower level of care. Palomo Pham MD Jul 28, 2017 10:58
--- NOTE | 2017-07-28 12:46 | HHI.PR ---
Subjective Remarks Follow-up visit for breast cancer, DVT of left upper extremity, and psychosis. Patient seen and examined sitting up in chair in the hallway in no acute distress. She reports that left arm swelling has improved, denies any pain or discomfort. Denies any fevers, chills, nausea, vomiting, diarrhea, headache, shortness of breath or cough. 2-15 seen lying in bed No new complaints Denies any pain shortness of breath or chest pain at the moment 2-16 TO HAVE CHEMOTHERAPY TODAY PER ONCOLOGY WILL NEED MASTECTOMY IN FUTURE DW RN AND PT Objective Vitals Vital Signs Date Time Temp Pulse Resp B/P (MAP) Pulse Ox O2 Delivery O2 Flow Rate FiO2 07/28/17 06:18 97.4 58 16 115/61 (79) 98 07/27/17 18:00 97.2 80 18 119/74 (89) 99 I/O 07/27/17 07/27/17 07/27/17 07/28/17 07/28/17 07/28/17 07:00 15:00 23:00 07:00 15:00 23:00 Intake Total 240 ml 1920 ml 600 ml 0 ml 360 ml Balance 240 ml 1920 ml 600 ml 0 ml 360 ml Intake Oral 240 ml 1920 ml 600 ml 0 ml 360 ml # Voids 2 3 1 Result Diagram: 07/27/17 0929 07/27/17 0929 Other Results Laboratory Tests Test 07/27/17 09:29 White Blood Count 4.5 TH/MM3 Red Blood Count 4.01 MIL/MM3 Hemoglobin 12.1 GM/DL Hematocrit 36.1 % Mean Corpuscular Volume 90.1 FL Mean Corpuscular Hemoglobin 30.2 PG Mean Corpuscular Hemoglobin Concent 33.5 % Red Cell Distribution Width 15.9 % Platelet Count 288 TH/MM3 Mean Platelet Volume 8.7 FL Neutrophils (%) (Auto) 64.5 % Lymphocytes (%) (Auto) 28.2 % Monocytes (%) (Auto) 4.6 % Eosinophils (%) (Auto) 2.2 % Basophils (%) (Auto) 0.5 % Neutrophils # (Auto) 2.9 TH/MM3 Lymphocytes # (Auto) 1.3 TH/MM3 Monocytes # (Auto) 0.2 TH/MM3 Eosinophils # (Auto) 0.1 TH/MM3 Basophils # (Auto) 0.0 TH/MM3 CBC Comment DIFF FINAL Differential Comment Blood Urea Nitrogen 11 MG/DL Creatinine 0.47 MG/DL Random Glucose 89 MG/DL Total Protein 6.0 GM/DL Albumin 3.1 GM/DL Calcium Level 8.4 MG/DL Alkaline Phosphatase 52 U/L Aspartate Amino Transf (AST/SGOT) 27 U/L Alanine Aminotransferase (ALT/SGPT) 73 U/L Total Bilirubin 0.6 MG/DL Sodium Level 141 MEQ/L Potassium Level 3.9 MEQ/L Chloride Level 105 MEQ/L Carbon Dioxide Level 30.6 MEQ/L Anion Gap 5 MEQ/L Estimat Glomerular Filtration Rate 140 ML/MIN Objective Remarks GENERAL: Awake, alert, pleasant, in NAD. SKIN: Warm and dry. LUE with scattered open areas that are dry, with no redness or warmth noted, open to air. HEAD: Normocephalic. EYES: No scleral icterus. No injection or drainage. NECK: Supple, trachea midline. No JVD or lymphadenopathy. CARDIOVASCULAR: Regular rate and rhythm without murmurs, gallops, or rubs. RESPIRATORY: Breath sounds equal bilaterally. No accessory muscle use. GASTROINTESTINAL: Abdomen soft, non-tender, nondistended. Normoactive bowel sounds in all quadrants. MUSCULOSKELETAL: No cyanosis, or edema. Moves all extremities, ambulating without difficulties or assistive devices. NEUROLOGIC: Awake and alert, moving all extremities with no noted weakness. Speech is clear, hard of hearing, no facial droop noted. Insight and judgment is good Mood and behavior somewhat appropriate Medications and IVs Current Medications Famotidine (Pepcid) 20 mg ONCE PO ; Start 07/11/17 at 21:15; Stop 07/11/17 at 23 :59; Status DC Haloperidol (Haldol) 7.5 mg BID PO Last administered on 07/24/17at 20:47; Start 07/12/17 at 09:00; Stop 07/25/17 at 08:58; Status DC Zolpidem Tartrate (Ambien) 5 mg HS PRN PO INSOMNIA Last administered on at 20:53; Start 07/11/17 at 21:15 Enoxaparin Sodium (Lovenox Inj) 90 mg Q12H SQ Last administered on 07/28/17at 09 :58; Start 07/11/17 at 22:00 Lorazepam (Ativan) 1 mg Q6H PRN PO MODERATE TO SEVERE ANXIETY Last administered on 07/19/17at 05:03; Start 07/11/17 at 21:15 Lorazepam (Ativan Inj) 1 mg Q6H PRN IM MODERATE TO SEVERE ANXIETY; Start at 21:15 Acetaminophen (Tylenol) 650 mg Q4H PRN PO Pain 1-5 or Temp >101F Last administered on 07/17/17at 20:42; Start 07/11/17 at 21:15 Magnesium Hydroxide (Milk Of Magnesia Liq) 30 ml DAILY PRN PO CONSTIPATION; Start 07/11/17 at 21:15 Al Hydrox/Mg Hydrox/Simethicone (Mag-Al Plus Susp Liq) 30 ml Q6H PRN PO DYSPEPSIA Last administered on 07/26/17at 21:17; Start 07/11/17 at 21:15 Nicotine (Habitrol 21 Mg Patch.24 Hr) 1 patch DAILY PRN T-DERMAL nicotine craving; Start 07/11/17 at 21:15 Benztropine Mesylate (Cogentin) 1 mg Q12H PRN PO EXTRA PYRAMIDAL SYMPTOMS; Start 07/11/17 at 21:15 Benztropine Mesylate (Cogentin Inj) 1 mg Q12H PRN IM EXTRA PYRAMIDAL SYMPTOMS; Start 07/11/17 at 21:15 Oxycodone/ Acetaminophen (Percocet 5-325 Mg) 1 tab Q6H PRN PO PAIN 6-10 Last administered on 07/14/17at 14:25; Start 07/11/17 at 21:15 Miscellaneous (Pill Splitter) 1 ea UNSCH PRN OTHER SEE LABEL COMMENTS; Start at 21:30 Potassium Chloride (KCl) 20 meq ONCE ONCE PO Last administered on 07/12/17at 12 :47; Start 07/12/17 at 12:30; Stop 07/12/17 at 12:31; Status DC Cephalexin Monohydrate (Keflex) 500 mg Q6HR PO Last administered on 07/14/17at 06 :00; Start 07/13/17 at 12:00; Stop 07/14/17 at 08:37; Status DC Paclitaxel 151 mg/ Sodium Chloride 275.1667 ml @ 275.... ONCE ONCE IV ; Start 07/14/17 at 15:30; Stop 07/14/17 at 16:29; Status Cancel Lorazepam (Ativan Inj) 0.5 mg ONCE PRN IV SEE LABEL COMMENTS; Start 07/13/17 at 16:00; Stop 07/14/17 at 23:59; Status Cancel Dexamethasone Sodium Phosphate 10 mg/Sodium Chloride 52.5 ml @ 210 mls/hr ONCE PRN IV SEE LABEL COMMENTS; Start 07/14/17 at 16:00; Stop 07/14/17 at 23:59; Status Cancel Diphenhydramine HCl (Benadryl) 25 mg ONCE PRN PO SEE LABEL COMMENTS; Start 07/14 at 15:45; Stop 07/14/17 at 23:59; Status Cancel Famotidine (Pepcid) 20 mg ONCE PRN PO SEE LABEL COMMENTS; Start 07/14/17 at 15: 45; Stop 07/14/17 at 23:59; Status Cancel Cefazolin Sodium 1000 mg/Sodium Chloride 100 ml @ 200 mls/hr Q8H IV Last administered on 07/17/17at 04:00; Start 07/14/17 at 12:00; Stop 07/17/17 at 10:57; Status DC Dexamethasone Sodium Phosphate 10 mg/Sodium Chloride 52.5 ml @ 220 mls/hr ONCE ONCE IV Last administered on 07/14/17at 15:49; Start 07/14/17 at 15:00; Stop 07/14/17 at 15:14; Status DC Diphenhydramine HCl (Benadryl) 25 mg ONCE ONCE PO Last administered on at 15:49; Start 07/14/17 at 15:00; Stop 07/14/17 at 15:01; Status DC Famotidine (Pepcid) 20 mg ONCE ONCE PO Last administered on 07/14/17at 15:49; Start 07/14/17 at 15:00; Stop 07/14/17 at 15:01; Status DC Paclitaxel 154.4 mg/Sodium Chloride 275.7333 ml @ 275.... ONCE ONCE IV Last administered on 07/14/17at 17:22; Start 07/14/17 at 16:00; Stop 07/14/17 at 16:59; Status DC Sodium Chloride 250 ml @ 0 mls/hr ONCE ONCE IV Last administered on 07/14/17at 16:00; Start 07/14/17 at 16:00; Stop 07/14/17 at 16:01; Status DC Lorazepam (Ativan Inj) 1 mg STAT STAT IV PUSH Last administered on 07/14/17at 16 :00; Start 07/14/17 at 15:52; Stop 07/14/17 at 15:53; Status DC Sodium Chloride (NS Flush) 2 ml BID IV FLUSH Last administered on 07/27/17at 21: 18; Start 07/15/17 at 21:00 Cephalexin Monohydrate (Keflex) 500 mg Q6HR PO Last administered on 07/25/17at 17:11; Start 07/17/17 at 12:00; Stop 07/25/17 at 17:12; Status DC Sodium Chloride 250 ml @ 0 mls/hr ONCE ONCE IV ; Start 07/21/17 at 14:45; Stop 07/21/17 at 14:45; Status DC Lorazepam (Ativan Inj) 0.5 mg ONCE ONCE IV Last administered on 07/21/17 15:36 ; Start 07/21/17 at 16:00; Stop 07/21/17 at 16:01; Status DC Sodium Chloride 250 ml @ 0 mls/hr ONCE ONCE IV Last administered on 07/21/17 17:09; Start 07/21/17 at 17:00; Stop 07/21/17 at 17:01; Status DC Dexamethasone Sodium Phosphate 10 mg/Sodium Chloride 52.5 ml @ 210 mls/hr ONCE ONCE IV Last administered on 07/21/17at 15:42; Start 07/21/17 at 16:00; Stop 07/21/17 at 16:14; Status DC Diphenhydramine HCl (Benadryl) 25 mg ONCE ONCE PO Last administered on 15:36; Start 07/21/17 at 16:00; Stop 07/21/17 at 16:01; Status DC Paclitaxel 156.8 mg/Sodium Chloride 276.1333 ml @ 276.... ONCE ONCE IV Last administered on 07/21/17 17:09; Start 07/21/17 at 17:00; Stop 07/21/17 at 17:59; Status DC Famotidine (Pepcid) 20 mg ONCE ONCE PO Last administered on 07/21/17at 15:36; Start 07/21/17 at 16:00; Stop 07/21/17 at 16:01; Status DC Heparin Sodium (Porcine) (Heparin Central Flush) 400 units ONCE ONCE IV FLUSH Last administered on 07/23/17at 13:04; Start 07/23/17 at 12:30; Stop 07/23/17 at 12:31; Status DC Haloperidol (Haldol) 10 mg BID PO Last administered on 07/28/17at 08:35; Start 07/25/17 at 10:30 Bacitracin (Baciguent Oint) 1 applic Q12HR TOPICAL Last administered on at 08:35; Start 07/26/17 at 21:00 Sodium Chloride 250 ml @ 30 mls/hr ONCE ONCE IV ; Start 07/28/17 at 14:00; Stop 07/28/17 at 22:19; Status Cancel Dexamethasone Sodium Phosphate 20 mg/Sodium Chloride 55 ml @ 220 mls/hr ONCE ONCE IV ; Start 07/28/17 at 13:00; Stop 07/28/17 at 13:14; Status Cancel Diphenhydramine HCl (Benadryl) 25 mg ONCE ONCE PO ; Start 07/28/17 at 13:00; Stop 07/28/17 at 13:01; Status Cancel Famotidine (Pepcid) 20 mg ONCE ONCE PO ; Start 07/28/17 at 13:00; Stop at 13:01; Status Cancel Paclitaxel 156 mg/ Sodium Chloride 526 ml @ 263 mls/hr ONCE ONCE IV ; Start at 14:00; Stop 07/28/17 at 15:59; Status Cancel Sodium Chloride 250 ml @ 30 mls/hr ONCE ONCE IV ; Start 07/28/17 at 16:00; Stop 07/29/17 at 00:19; Status Cancel Lorazepam (Ativan Inj) 0.5 mg ONCE ONCE IV ; Start 07/28/17 at 15:30; Stop at 15:31; Status Cancel Pertuzumab 420 mg/ Sodium Chloride 264 ml @ 528 mls/hr ONCE ONCE IV ; Start at 16:00; Stop 07/28/17 at 16:29; Status Cancel Trastuzumab 510 mg/Sodium Chloride 250 ml @ 166.667 mls/hr ONCE ONCE IV ; Start 07/28/17 at 17:00; Stop 07/28/17 at 18:29; Status Cancel Sodium Chloride 250 ml @ 30 mls/hr ONCE ONCE IV ; Start 07/28/17 at 17:00; Stop 07/29/17 at 01:19; Status Cancel Sodium Chloride 250 ml @ 30 mls/hr ONCE ONCE IV ; Start 07/28/17 at 14:00; Stop 07/28/17 at 22:19; Status Cancel Lorazepam (Ativan Inj) 0.5 mg ONCE ONCE IV ; Start 07/28/17 at 13:30; Stop at 13:31; Status Cancel Pertuzumab 420 mg/ Sodium Chloride 264 ml @ 528 mls/hr ONCE ONCE IV ; Start at 14:00; Stop 07/28/17 at 14:29; Status Cancel Trastuzumab 510 mg/Sodium Chloride 250 ml @ 166.667 mls/hr ONCE ONCE IV ; Start 07/28/17 at 14:00; Stop 07/28/17 at 15:29 Sodium Chloride 250 ml @ 30 mls/hr ONCE ONCE IV ; Start 07/28/17 at 14:00; Stop 07/28/17 at 22:19 Sodium Chloride 250 ml @ 30 mls/hr ONCE ONCE IV ; Start 07/28/17 at 16:00; Stop 07/29/17 at 00:19 Lorazepam (Ativan Inj) 0.5 mg ONCE ONCE IV ; Start 07/28/17 at 15:30; Stop at 15:31 Pertuzumab 420 mg/ Sodium Chloride 264 ml @ 264 mls/hr ONCE ONCE IV ; Start at 16:00; Stop 07/28/17 at 16:59 Sodium Chloride 250 ml @ 30 mls/hr ONCE ONCE IV ; Start 07/28/17 at 18:00; Stop 07/29/17 at 02:19 Dexamethasone Sodium Phosphate 20 mg/Sodium Chloride 55 ml @ 220 mls/hr ONCE ONCE IV ; Start 07/28/17 at 17:00; Stop 07/28/17 at 17:14 Diphenhydramine HCl (Benadryl) 25 mg ONCE ONCE PO ; Start 07/28/17 at 17:00; Stop 07/28/17 at 17:01 Famotidine (Pepcid) 20 mg ONCE ONCE PO ; Start 07/28/17 at 17:00; Stop at 17:01 Paclitaxel 156 mg/ Sodium Chloride 276 ml @ 138 mls/hr ONCE ONCE IV ; Start at 18:00; Stop 07/28/17 at 19:59 Acetaminophen (Tylenol) 650 mg ONCE ONCE PO ; Start 07/28/17 at 13:30; Stop at 13:31 Diphenhydramine HCl (Benadryl) 25 mg ONCE ONCE PO ; Start 07/28/17 at 13:30; Stop 07/28/17 at 13:31 Granisetron HCl (Kytril Inj) 1 mg ONCE ONCE IV PUSH ; Start 07/28/17 at 17:30; Stop 07/28/17 at 17:31 A/P Problem List: (1) HER2-positive carcinoma of right breast ICD Code: C50.911 - Malignant neoplasm of unspecified site of right female breast (2) Deep venous thrombosis of left upper extremity ICD Code: I82.622 - Acute embolism and thrombosis of deep veins of left upper extremity (3) Psychosis not due to substance or known physiological condition ICD Code: F29 - Unspecified psychosis not due to a substance or known physiological condition Assessment and Plan 52 years old female with psychosis, schizophrenia, LUE DVT, breast CA, who is HER2 positive. Schizophrenia - Treatment per psychiatry. LUE DVT - Patient seen and evaluated by hem/onc. On lovenox therapeutic dose. - LUE with little to no swelling noted, no pain reported. (if no improvement of LUE by US on LMWH, Dr Sewell planned to remove port (likely in 6 weeks when chemo finish) HER 2 shirley positive R breast CA - on chemo- last dose 07/14/17 - planned taxol every week with Dr Villareal. -- CHEMO TODAY 2-16 Left 2nd toe and right big toe cellulitis - - Resolved S/P total 10 days course of Cefazolin + Keflex. 07/25. Superficial excoriations/ wounds on left upper arm - improved - continue Bacitracin bid DVT prophylaxis-lovenox Labs reviewed stable Discussed with nurse. Discharge Planning Pending psychiatric clearance Brandon Teixeira DO Jul 28, 2017 12:46
[2017-07-28] MEDS ORDERED: FAMOTIDINE 20 MG TAB PO ONE ×2 (13:00→17:00)
[2017-07-28] MEDS ORDERED: DEXAMETHASONE INJ 20 MG in SODIUM CHLORIDE 0.9% INJ 50 ML IV ONE ×2 (13:00→17:00)
[2017-07-28] MEDS ORDERED: diphenhydrAMINE HCL 25 MG CAP PO ONE ×3 (13:00→17:00)
--- NOTE | 2017-07-28 13:28 | PD.ONC.PN ---
Subjective Subjective Remarks Afebrile overnight. Patient resting in room in nad. No complaints. Ready for chemo. Objective Data Date Time Temp Pulse Resp B/P (MAP) Pulse Ox O2 Delivery O2 Flow Rate FiO2 07/28/17 06:18 97.4 58 16 115/61 (79) 98 07/27/17 18:00 97.2 80 18 119/74 (89) 99 07/28/17 07/28/17 07/28/17 07:00 15:00 23:00 Intake Total 0 ml 360 ml Balance 0 ml 360 ml Result Diagram: 07/27/1792807/27/17928 Administered Medications Medications (Trade) Dose Ordered Sig/Renard Route PRN Reason Start Time Stop Time Status Last Admin Dose Admin Zolpidem Tartrate (Ambien) 5 mg HS PRN PO INSOMNIA 07/11/17 21:15 07/25/17 20:53 Enoxaparin Sodium (Lovenox Inj) 90 mg Q12H SQ 07/11/17 22:00 07/28/17 09:58 Lorazepam (Ativan) 1 mg Q6H PRN PO MODERATE TO SEVERE ANXIETY 07/11/17 21:15 07/19/17 05:03 Acetaminophen (Tylenol) 650 mg Q4H PRN PO Pain 1-5 or Temp >101F 07/11/17 21:15 07/17/17 20:42 Al Hydrox/Mg Hydrox/Simethicone (Mag-Al Plus Susp Liq) 30 ml Q6H PRN PO DYSPEPSIA 07/11/17 21:15 07/26/17 21:17 Oxycodone/ Acetaminophen (Percocet 5-325 Mg) 1 tab Q6H PRN PO PAIN 6-10 07/11/17 21:15 07/14/17 14:25 Sodium Chloride (NS Flush) 2 ml BID IV FLUSH 07/15/17 21:00 07/27/17 21:18 Haloperidol (Haldol) 10 mg BID PO 07/25/17 10:30 07/28/17 08:35 Bacitracin (Baciguent Oint) 1 applic Q12HR TOPICAL 07/26/17 21:00 07/28/17 08:35 Objective Remarks GENERAL: Fatigued female, lying supine in bed resting. SKIN: Warm and dry. HEAD: Normocephalic. EYES: No injection or drainage. NECK: Supple, trachea midline. CARDIOVASCULAR: Regular rate and rhythm RESPIRATORY: Breath sounds equal bilaterally. No accessory muscle use. GASTROINTESTINAL: Abdomen soft, non-tender, nondistended. EXTREMITIES: No cyanosis NEUROLOGICAL: awake and alert, normal speech. moving extremities. Assessment/Plan Problem List: (1) HER2-positive carcinoma of right breast ICD Codes: C50.911 - Malignant neoplasm of unspecified site of right female breast Plan: 07/14: continue weekly therapy with Taxol. does not need Herceptin this week, was given q3 weeks dosing in clinic. 07/20/17. Continue weekly Taxol. Next week next dose Herceptin/Perjeta/Taxol is due. We discussed goal typically to give neoadjuvant therapy for 12 weeks or best response. She is tolerating chemotherapy well. She seems to understand the need to treat her cancer. 07/21: Taxol today. monitor for adverse reaction. 07/27: obtain labs, prepare for Herceptin/Perjeta and Taxol tomorrow. 07/28: Herceptin/Perjeta/Taxol today. tolerating chemotherapy. (2) Deep venous thrombosis of left upper extremity ICD Codes: I82.622 - Acute embolism and thrombosis of deep veins of left upper extremity Plan: --on therapeutic dose Lovenox If her left arm swelling does not respond to her low-molecular weight heparin we may have to remove the port. is likely given the nature of the catheter associated clots. 07/20/17. L arm swelling improved. She understands that it was a blood clot, she denies any bleeding on anticoagulation.j She is no longer claiming that someone broke her arm. 07/21/17: continue Lovenox. 07/28: tolerating Lovenox. Assessment 52y/o female with locally advanced HER2/shirley over expressing ER positive right breast cancer currently admitted for psychosis. 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 h/o Chemotherapy induced anemia. Plan 1. proceed with chemotherapy today 2. continue Lovenox Attending Statement The exam, history, and the medical decision-making described in the above note were completed with the assistance of the mid-level provider. I reviewed and agree with the findings presented. I attest that I had a [id number] encounter with the patient on the same day, and personally performed and documented my assessment and findings in the medical record. Pt seen and examined. Doing well, cooperating with chemo. Seen by surgery today, discussed possible mastectomy. Pending consult w/ plastic surgeon. L arm DVT swelling improve. Idalia Disla Jul 28, 2017 13:27 Alexa Villareal MD Jul 28, 2017 19:49
[2017-07-28] MEDS ORDERED: LORazepam 2 MG/ML VIAL IV ONE ×3 (13:30→15:30)
[2017-07-28] MEDS ORDERED: ACETAMINOPHEN 325 MG TAB PO ONE (13:30)
[2017-07-28 13:57] VITALS: BP 123/83; PULSE 80; RESP 18; TEMP 98.5; O2SAT 98
[2017-07-28] MEDS ORDERED: SODIUM CHLOR 0.9% 250 ML INJ 250 ML IV ONE ×7 (14:00→18:00)
[2017-07-28] MEDS ORDERED: PACLITAXEL IV ONE ×2 (14:00→18:00)
[2017-07-28] MEDS ORDERED: PERTUZUMAB IV ONE ×5 (14:00→16:00)
[2017-07-28] MEDS ORDERED: NS IV ONE (14:00)
[2017-07-28] MEDS ORDERED: SODIUM CHLOR 0.9% IV ONE ×8 (14:00→18:00)
[2017-07-28] MEDS ORDERED: TRASTUZUMAB IV ONE ×2 (14:00→17:00)
[2017-07-28] MEDS ORDERED: GRANISETRON HCL 1 MG/ML VIAL IV PUSH ONE (17:30)
--- NOTE | 2017-07-28 18:33 | PD.CONS ---
History of Present Illness Service Plastic surgery Consult Requested By Primary team Reason for Consult Right breast cancer Primary Care Physician No Primary Care Physician Diagnoses: History of Present Illness Patient is a 52-year-old woman brought in under [facility] for concern of patient's ability to care for self as it was reported patient was not eating and resurgence of psychotic symptoms in the context of not adherence to treatment. Patient found on chest CT to have right breast mass. Lymph node biopsy consistent with adenocarcinoma consistent with breast primary. Pt is receiving both psychiatric treatment as well as chemotherapy. By report, patients focus is now much improved, though it is difficult to obtain history due to perseveration. Coded Allergies: No Known Allergies (Unverified , 05/25/17) Med list reviewed Family Psych History Poor historian due to disorganization and unable to assess Social History Single, domiciled [place], unemployed on SSI. Patient has 1 daughter whom she states has not had contact with for several years. PMH Breast cancer Catheter associated thrombus PSH Right axillary biopsy, Port-A-Cath placement. Review of Systems Review of systems otherwise noncontributory to presenting complaint Past Family Social History Allergies: Coded Allergies: No Known Allergies (Unverified , 05/25/17) Physical Exam Vital Signs Vital Signs Date Time Temp Pulse Resp B/P (MAP) Pulse Ox O2 Delivery O2 Flow Rate FiO2 07/28/17 13:57 98.5 80 18 123/83 (96) 98 07/28/17 06:18 97.4 58 16 115/61 (79) 98 Physical Exam No acute distress Alert Moist mucous membranes PERRLA No focal neurologic deficits Skin without rash Respirations nonlabored Right breast with lateral subareolar mass 3-4 cm in diameter (Nurse chaperoned) Positive areolar skin changes No discharge expressed Result Diagram: 07/27/1792807/27/17928 Assessment and Plan Problem List: (1) HER2-positive carcinoma of right breast ICD Codes: C50.911 - Malignant neoplasm of unspecified site of right female breast Assessment and Plan 52-year-old female admitted under [facility], currently being treated for schizophrenia and receiving chemotherapy for right locally advanced stage III breast cancer. Lengthy discussion had with patient yesterday regarding her diagnoses and treatment. At times patient seemed to ask appropriate questions, though at certain miller points in the discussion, the patient only perseverated and seemed to have little understanding of what was being discussed. At the time of the discussion, the patient did not seem to understand miller aspects of breast reconstruction such as what was being proposed or that it would involve multiple stages and a prolonged treatment course. I went back to see the patient this afternoon, though she was off the floor receiving treatment. Will attempt to have further discussion with the patient to better discern her ability to give an appropriate informed consent for reconstruction as well as her ability to consistently conform to a postoperative management plan, i.e serial expansion/drain management/etc. Bertin Astorga MD Jul 28, 2017 18:33
[2017-07-28 20:16] VITALS: BP 129/77; PULSE 75; RESP 18; TEMP 98.4; O2SAT 93
[2017-07-28] MEDS ORDERED: SODIUM CHLORIDE 0.9% FLUSH 10 ML FLUSH IV FLUSH PRN (23:45)
[2017-07-29 06:30] VITALS: BP 125/59; PULSE 70; RESP 18; TEMP 97.9; O2SAT 94
--- NOTE | 2017-07-29 08:58 | HHI.PYPN ---
Subjective Remarks Patient seen in her room with nurse, chart review, patient discussed with nurse , compliant medications. Patient somewhat guarded this morning in the little disorganized. Though denies suicidality homicidality voices or visions. Continues compliant with treatment also. For now continue treatment Review of Systems Except as stated in HPI: all other systems reviewed are Neg Mental Status Examination Appearance: Appropriate Consciousness: Alert Orientation: Person, Place, Date/Time Motor Activity: Normal gait Speech: Unremarkable Language: Adequate Fund of Knowledge: Inadequate Attention and Concentration: Adequate Memory: Impaired Mood: Appropriate Affect: Appropriate Thought Process & Associations: Tangential Thought Content: Bizarre thinking, Delusional, Other Hallucination Type: None Delusion Type: Bizarre (pertaining to her daughter who was allegedly missing), Paranoid Suicidal Ideation: No Suicidal Plan: No Suicidal Intention: No Homicidal Ideation: No Homicidal Plan: No Homicidal Intention: No Insight: Poor Judgment: Impulsive Results Vitals/IOs Vital Signs Date Time Temp Pulse Resp B/P (MAP) Pulse Ox O2 Delivery O2 Flow Rate FiO2 07/29/17 06:30 97.9 70 18 125/59 (81) 94 Assessment & Plan Problem List: (1) Psychosis not due to substance or known physiological condition ICD Codes: F29 - Unspecified psychosis not due to a substance or known physiological condition Assessment & Plan Estimated LOS: days patient continues somewhat guarded and irritable with me though no behavior problems, compliant medications Justification for Cont. Inpt. At this time patient will decompensate of placement lower level of care Discharge Planning Placement may become problematic Ricco Neff MD Jul 29, 2017 08:58
[2017-07-29] MEDS: SODIUM CHLORIDE 0.9% FLUSH 10 ML FLUSH IV FLUSH SCH ×2 (09:00→21:00)
[2017-07-29] MEDS: BACITRACIN TOP OINT 15 GM TUBE TOPICAL SCH ×2 (09:00→21:03)
[2017-07-29] MEDS: HALOPERIDOL 5 MG TAB PO SCH ×2 (09:00→21:00)
[2017-07-29] MEDS: ENOXAPARIN SODIUM 100 MG/ML SYRINGE SQ SCH ×2 (09:28→21:03)
--- NOTE | 2017-07-29 11:09 | HHI.PR ---
Subjective Remarks Follow-up visit for breast cancer, DVT of left upper extremity, and psychosis. Patient seen and examined sitting up in chair in the hallway in no acute distress. She reports that left arm swelling has improved, denies any pain or discomfort. Denies any fevers, chills, nausea, vomiting, diarrhea, headache, shortness of breath or cough. 2-15 seen lying in bed No new complaints Denies any pain shortness of breath or chest pain at the moment 2-16 TO HAVE CHEMOTHERAPY TODAY PER ONCOLOGY WILL NEED MASTECTOMY IN FUTURE DW RN AND PT 2-17 SEEN BY SURGERY WILL NEED MASTECTOMY QUESTIONS ANSWERED DW PT AND RN Objective Vitals Vital Signs Date Time Temp Pulse Resp B/P (MAP) Pulse Ox O2 Delivery O2 Flow Rate FiO2 07/29/17 06:30 97.9 70 18 125/59 (81) 94 07/28/17 20:16 98.4 75 18 129/77 (94) 93 07/28/17 13:57 98.5 80 18 123/83 (96) 98 I/O 07/28/17 07/28/17 07/28/17 07/29/17 07/29/17 07/29/17 07:00 15:00 23:00 07:00 15:00 23:00 Intake Total 0 ml 360 ml 1320 ml 360 ml Balance 0 ml 360 ml 1320 ml 360 ml Intake Oral 0 ml 360 ml 1320 ml 360 ml # Voids 1 2 Result Diagram: 07/27/17 0929 07/27/17 0929 Other Results Laboratory Tests Test 07/27/17 09:29 White Blood Count 4.5 TH/MM3 Red Blood Count 4.01 MIL/MM3 Hemoglobin 12.1 GM/DL Hematocrit 36.1 % Mean Corpuscular Volume 90.1 FL Mean Corpuscular Hemoglobin 30.2 PG Mean Corpuscular Hemoglobin Concent 33.5 % Red Cell Distribution Width 15.9 % Platelet Count 288 TH/MM3 Mean Platelet Volume 8.7 FL Neutrophils (%) (Auto) 64.5 % Lymphocytes (%) (Auto) 28.2 % Monocytes (%) (Auto) 4.6 % Eosinophils (%) (Auto) 2.2 % Basophils (%) (Auto) 0.5 % Neutrophils # (Auto) 2.9 TH/MM3 Lymphocytes # (Auto) 1.3 TH/MM3 Monocytes # (Auto) 0.2 TH/MM3 Eosinophils # (Auto) 0.1 TH/MM3 Basophils # (Auto) 0.0 TH/MM3 CBC Comment DIFF FINAL Differential Comment Blood Urea Nitrogen 11 MG/DL Creatinine 0.47 MG/DL Random Glucose 89 MG/DL Total Protein 6.0 GM/DL Albumin 3.1 GM/DL Calcium Level 8.4 MG/DL Alkaline Phosphatase 52 U/L Aspartate Amino Transf (AST/SGOT) 27 U/L Alanine Aminotransferase (ALT/SGPT) 73 U/L Total Bilirubin 0.6 MG/DL Sodium Level 141 MEQ/L Potassium Level 3.9 MEQ/L Chloride Level 105 MEQ/L Carbon Dioxide Level 30.6 MEQ/L Anion Gap 5 MEQ/L Estimat Glomerular Filtration Rate 140 ML/MIN Imaging Last Impressions Toe X-Ray 07/14/17 0000 Signed Impressions: Service Date/Time: Friday, July 14, 2017 10:34 - CONCLUSION: 1. Small exostosis of the toe. 2. No acute fracture or dislocation. Lj Clark MD Upper Extremity Ultrasound 07/13/17 0000 Signed Impressions: Service Date/Time: July 09:19 - CONCLUSION: Interval decrease in the size of the enlarged axillary lymph node. Jayden Brunner MD Objective Remarks GENERAL: Awake, alert, pleasant, in NAD. SKIN: Warm and dry. LUE with scattered open areas that are dry, with no redness or warmth noted, open to air. HEAD: Normocephalic. EYES: No scleral icterus. No injection or drainage. NECK: Supple, trachea midline. No JVD or lymphadenopathy. CARDIOVASCULAR: Regular rate and rhythm without murmurs, gallops, or rubs. RESPIRATORY: Breath sounds equal bilaterally. No accessory muscle use. GASTROINTESTINAL: Abdomen soft, non-tender, nondistended. Normoactive bowel sounds in all quadrants. MUSCULOSKELETAL: No cyanosis, or edema. Moves all extremities, ambulating without difficulties or assistive devices. NEUROLOGIC: Awake and alert, moving all extremities with no noted weakness. Speech is clear, hard of hearing, no facial droop noted. Insight and judgment is good Mood and behavior somewhat appropriate Medications and IVs Current Medications Famotidine (Pepcid) 20 mg ONCE PO ; Start 07/11/17 at 21:15; Stop 07/11/17 at 23 :59; Status DC Haloperidol (Haldol) 7.5 mg BID PO Last administered on 07/24/17at 20:47; Start 07/12/17 at 09:00; Stop 07/25/17 at 08:58; Status DC Zolpidem Tartrate (Ambien) 5 mg HS PRN PO INSOMNIA Last administered on at 20:53; Start 07/11/17 at 21:15 Enoxaparin Sodium (Lovenox Inj) 90 mg Q12H SQ Last administered on 07/29/17at 09 :28; Start 07/11/17 at 22:00 Lorazepam (Ativan) 1 mg Q6H PRN PO MODERATE TO SEVERE ANXIETY Last administered on 07/19/17at 05:03; Start 07/11/17 at 21:15 Lorazepam (Ativan Inj) 1 mg Q6H PRN IM MODERATE TO SEVERE ANXIETY; Start at 21:15 Acetaminophen (Tylenol) 650 mg Q4H PRN PO Pain 1-5 or Temp >101F Last administered on 07/17/17at 20:42; Start 07/11/17 at 21:15 Magnesium Hydroxide (Milk Of Magnesia Liq) 30 ml DAILY PRN PO CONSTIPATION; Start 07/11/17 at 21:15 Al Hydrox/Mg Hydrox/Simethicone (Mag-Al Plus Susp Liq) 30 ml Q6H PRN PO DYSPEPSIA Last administered on 07/26/17at 21:17; Start 07/11/17 at 21:15 Nicotine (Habitrol 21 Mg Patch.24 Hr) 1 patch DAILY PRN T-DERMAL nicotine craving; Start 07/11/17 at 21:15 Benztropine Mesylate (Cogentin) 1 mg Q12H PRN PO EXTRA PYRAMIDAL SYMPTOMS; Start 07/11/17 at 21:15 Benztropine Mesylate (Cogentin Inj) 1 mg Q12H PRN IM EXTRA PYRAMIDAL SYMPTOMS; Start 07/11/17 at 21:15 Oxycodone/ Acetaminophen (Percocet 5-325 Mg) 1 tab Q6H PRN PO PAIN 6-10 Last administered on 07/14/17at 14:25; Start 07/11/17 at 21:15 Miscellaneous (Pill Splitter) 1 ea UNSCH PRN OTHER SEE LABEL COMMENTS; Start at 21:30 Potassium Chloride (KCl) 20 meq ONCE ONCE PO Last administered on 07/12/17at 12 :47; Start 07/12/17 at 12:30; Stop 07/12/17 at 12:31; Status DC Cephalexin Monohydrate (Keflex) 500 mg Q6HR PO Last administered on 07/14/17at 06 :00; Start 07/13/17 at 12:00; Stop 07/14/17 at 08:37; Status DC Paclitaxel 151 mg/ Sodium Chloride 275.1667 ml @ 275.... ONCE ONCE IV ; Start 07/14/17 at 15:30; Stop 07/14/17 at 16:29; Status Cancel Lorazepam (Ativan Inj) 0.5 mg ONCE PRN IV SEE LABEL COMMENTS; Start 07/13/17 at 16:00; Stop 07/14/17 at 23:59; Status Cancel Dexamethasone Sodium Phosphate 10 mg/Sodium Chloride 52.5 ml @ 210 mls/hr ONCE PRN IV SEE LABEL COMMENTS; Start 07/14/17 at 16:00; Stop 07/14/17 at 23:59; Status Cancel Diphenhydramine HCl (Benadryl) 25 mg ONCE PRN PO SEE LABEL COMMENTS; Start 07/14 at 15:45; Stop 07/14/17 at 23:59; Status Cancel Famotidine (Pepcid) 20 mg ONCE PRN PO SEE LABEL COMMENTS; Start 07/14/17 at 15: 45; Stop 07/14/17 at 23:59; Status Cancel Cefazolin Sodium 1000 mg/Sodium Chloride 100 ml @ 200 mls/hr Q8H IV Last administered on 07/17/17at 04:00; Start 07/14/17 at 12:00; Stop 07/17/17 at 10:57; Status DC Dexamethasone Sodium Phosphate 10 mg/Sodium Chloride 52.5 ml @ 220 mls/hr ONCE ONCE IV Last administered on 07/14/17at 15:49; Start 07/14/17 at 15:00; Stop 07/14/17 at 15:14; Status DC Diphenhydramine HCl (Benadryl) 25 mg ONCE ONCE PO Last administered on at 15:49; Start 07/14/17 at 15:00; Stop 07/14/17 at 15:01; Status DC Famotidine (Pepcid) 20 mg ONCE ONCE PO Last administered on 07/14/17at 15:49; Start 07/14/17 at 15:00; Stop 07/14/17 at 15:01; Status DC Paclitaxel 154.4 mg/Sodium Chloride 275.7333 ml @ 275.... ONCE ONCE IV Last administered on 07/14/17at 17:22; Start 07/14/17 at 16:00; Stop 07/14/17 at 16:59; Status DC Sodium Chloride 250 ml @ 0 mls/hr ONCE ONCE IV Last administered on 07/14/17at 16:00; Start 07/14/17 at 16:00; Stop 07/14/17 at 16:01; Status DC Lorazepam (Ativan Inj) 1 mg STAT STAT IV PUSH Last administered on 07/14/17at 16 :00; Start 07/14/17 at 15:52; Stop 07/14/17 at 15:53; Status DC Sodium Chloride (NS Flush) 2 ml BID IV FLUSH Last administered on 07/27/17at 21: 18; Start 07/15/17 at 21:00 Cephalexin Monohydrate (Keflex) 500 mg Q6HR PO Last administered on 07/25/17at 17:11; Start 07/17/17 at 12:00; Stop 07/25/17 at 17:12; Status DC Sodium Chloride 250 ml @ 0 mls/hr ONCE ONCE IV ; Start 07/21/17 at 14:45; Stop 07/21/17 at 14:45; Status DC Lorazepam (Ativan Inj) 0.5 mg ONCE ONCE IV Last administered on 07/21/17at 15:36 ; Start 07/21/17 at 16:00; Stop 07/21/17 at 16:01; Status DC Sodium Chloride 250 ml @ 0 mls/hr ONCE ONCE IV Last administered on 07/21/17at 17:09; Start 07/21/17 at 17:00; Stop 07/21/17 at 17:01; Status DC Dexamethasone Sodium Phosphate 10 mg/Sodium Chloride 52.5 ml @ 210 mls/hr ONCE ONCE IV Last administered on 07/21/17at 15:42; Start 07/21/17 at 16:00; Stop 07/21/17 at 16:14; Status DC Diphenhydramine HCl (Benadryl) 25 mg ONCE ONCE PO Last administered on at 15:36; Start 07/21/17 at 16:00; Stop 07/21/17 at 16:01; Status DC Paclitaxel 156.8 mg/Sodium Chloride 276.1333 ml @ 276.... ONCE ONCE IV Last administered on 07/21/17at 17:09; Start 07/21/17 at 17:00; Stop 07/21/17 at 17:59; Status DC Famotidine (Pepcid) 20 mg ONCE ONCE PO Last administered on 07/21/17at 15:36; Start 07/21/17 at 16:00; Stop 07/21/17 at 16:01; Status DC Heparin Sodium (Porcine) (Heparin Central Flush) 400 units ONCE ONCE IV FLUSH Last administered on 07/23/17at 13:04; Start 07/23/17 at 12:30; Stop 07/23/17 at 12:31; Status DC Haloperidol (Haldol) 10 mg BID PO Last administered on 07/29/17at 09:00; Start 07/25/17 at 10:30 Bacitracin (Baciguent Oint) 1 applic Q12HR TOPICAL Last administered on at 21:00; Start 07/26/17 at 21:00 Sodium Chloride 250 ml @ 30 mls/hr ONCE ONCE IV ; Start 07/28/17 at 14:00; Stop 07/28/17 at 22:19; Status Cancel Dexamethasone Sodium Phosphate 20 mg/Sodium Chloride 55 ml @ 220 mls/hr ONCE ONCE IV ; Start 07/28/17 at 13:00; Stop 07/28/17 at 13:14; Status Cancel Diphenhydramine HCl (Benadryl) 25 mg ONCE ONCE PO ; Start 07/28/17 at 13:00; Stop 07/28/17 at 13:01; Status Cancel Famotidine (Pepcid) 20 mg ONCE ONCE PO ; Start 07/28/17 at 13:00; Stop at 13:01; Status Cancel Paclitaxel 156 mg/ Sodium Chloride 526 ml @ 263 mls/hr ONCE ONCE IV ; Start at 14:00; Stop 07/28/17 at 15:59; Status Cancel Sodium Chloride 250 ml @ 30 mls/hr ONCE ONCE IV ; Start 07/28/17 at 16:00; Stop 07/29/17 at 00:19; Status Cancel Lorazepam (Ativan Inj) 0.5 mg ONCE ONCE IV ; Start 07/28/17 at 15:30; Stop at 15:31; Status Cancel Pertuzumab 420 mg/ Sodium Chloride 264 ml @ 528 mls/hr ONCE ONCE IV ; Start at 16:00; Stop 07/28/17 at 16:29; Status Cancel Trastuzumab 510 mg/Sodium Chloride 250 ml @ 166.667 mls/hr ONCE ONCE IV ; Start 07/28/17 at 17:00; Stop 07/28/17 at 18:29; Status Cancel Sodium Chloride 250 ml @ 30 mls/hr ONCE ONCE IV ; Start 07/28/17 at 17:00; Stop 07/29/17 at 01:19; Status Cancel Sodium Chloride 250 ml @ 30 mls/hr ONCE ONCE IV ; Start 07/28/17 at 14:00; Stop 07/28/17 at 22:19; Status Cancel Lorazepam (Ativan Inj) 0.5 mg ONCE ONCE IV ; Start 07/28/17 at 13:30; Stop at 13:31; Status Cancel Pertuzumab 420 mg/ Sodium Chloride 264 ml @ 528 mls/hr ONCE ONCE IV ; Start at 14:00; Stop 07/28/17 at 14:29; Status Cancel Trastuzumab 510 mg/Sodium Chloride 250 ml @ 166.667 mls/hr ONCE ONCE IV Last administered on 07/28/17at 15:24; Start 07/28/17 at 14:00; Stop 07/28/17 at 15:29 ; Status DC Sodium Chloride 250 ml @ 30 mls/hr ONCE ONCE IV Last administered on at 15:26; Start 07/28/17 at 14:00; Stop 07/28/17 at 22:19; Status DC Sodium Chloride 250 ml @ 30 mls/hr ONCE ONCE IV Last administered on at 18:06; Start 07/28/17 at 16:00; Stop 07/29/17 at 00:19; Status DC Lorazepam (Ativan Inj) 0.5 mg ONCE ONCE IV ; Start 07/28/17 at 15:30; Stop at 15:31; Status DC Pertuzumab 420 mg/ Sodium Chloride 264 ml @ 264 mls/hr ONCE ONCE IV Last administered on 07/28/17at 18:03; Start 07/28/17 at 16:00; Stop 07/28/17 at 16:59 ; Status DC Sodium Chloride 250 ml @ 30 mls/hr ONCE ONCE IV Last administered on at 20:15; Start 07/28/17 at 18:00; Stop 07/29/17 at 02:19; Status DC Dexamethasone Sodium Phosphate 20 mg/Sodium Chloride 55 ml @ 220 mls/hr ONCE ONCE IV Last administered on 07/28/17at 20:08; Start 07/28/17 at 17:00; Stop at 17:14; Status DC Diphenhydramine HCl (Benadryl) 25 mg ONCE ONCE PO Last administered on at 20:08; Start 07/28/17 at 17:00; Stop 07/28/17 at 17:01; Status DC Famotidine (Pepcid) 20 mg ONCE ONCE PO Last administered on 07/28/17at 20:08; Start 07/28/17 at 17:00; Stop 07/28/17 at 17:01; Status DC Paclitaxel 156 mg/ Sodium Chloride 276 ml @ 138 mls/hr ONCE ONCE IV Last administered on 07/28/17at 21:31; Start 07/28/17 at 18:00; Stop 07/28/17 at 19:59 ; Status DC Acetaminophen (Tylenol) 650 mg ONCE ONCE PO Last administered on 07/28/17at 14: 02; Start 07/28/17 at 13:30; Stop 07/28/17 at 13:31; Status DC Diphenhydramine HCl (Benadryl) 25 mg ONCE ONCE PO Last administered on at 14:02; Start 07/28/17 at 13:30; Stop 07/28/17 at 13:31; Status DC Granisetron HCl (Kytril Inj) 1 mg ONCE ONCE IV PUSH Last administered on at 20:08; Start 07/28/17 at 17:30; Stop 07/28/17 at 17:31; Status DC Heparin Sodium (Porcine) (Heparin Central Flush) 250 units UNSCH PRN IV FLUSH SEE PROTOCOL TABLE; Start 07/28/17 at 23:45 Heparin Sodium (Porcine) (Heparin Central Flush) 500 units UNSCH IV FLUSH Last administered on 07/29/17at 00:03; Start 07/28/17 at 23:45 Sodium Chloride (NS Flush) 5 ml UNSCH PRN IV FLUSH SEE LABEL COMMENTS; Start at 23:45 A/P Problem List: (1) HER2-positive carcinoma of right breast ICD Code: C50.911 - Malignant neoplasm of unspecified site of right female breast (2) Deep venous thrombosis of left upper extremity ICD Code: I82.622 - Acute embolism and thrombosis of deep veins of left upper extremity (3) Psychosis not due to substance or known physiological condition ICD Code: F29 - Unspecified psychosis not due to a substance or known physiological condition Assessment and Plan 52 years old female with psychosis, schizophrenia, LUE DVT, breast CA, who is HER2 positive. Schizophrenia - Treatment per psychiatry. LUE DVT - Patient seen and evaluated by hem/onc. On lovenox therapeutic dose. - LUE with little to no swelling noted, no pain reported. (if no improvement of LUE by US on LMWH, Dr Sewell planned to remove port (likely in 6 weeks when chemo finish) HER 2 shirley positive R breast CA - on chemo- last dose 07/14/17 - planned taxol every week with Dr Villareal. -- CHEMO TODAY 2-16 WILL NEED RIGHT SIDE MASTECTOMY IN FUTURE WITH PROBABLE RECONSTRUCTIVE SURGERY Left 2nd toe and right big toe cellulitis - - Resolved S/P total 10 days course of Cefazolin + Keflex. 07/25. Superficial excoriations/ wounds on left upper arm - improved - continue Bacitracin bid DVT prophylaxis-lovenox Labs reviewed stable Discussed with nurse. Discharge Planning Pending psychiatric clearance Brandon Teixeira DO Jul 29, 2017 11:09
[2017-07-29 12:08] LABS: AUTOMATED NEUTROPHIL # 6.4 TH/MM3 (1.8-7.7); BASOPHIL % 0.2 % (0.0-2.0); EOSINOPHIL % 0.1 % (0.0-4.0); HEMATOCRIT 37.4 % (35.0-46.0); HEMOGLOBIN 12.8 GM/DL (11.6-15.3); LYMPH % 10.1 % (9.0-44.0); LYMPHOCYTE # 0.7 TH/MM3 (1.0-4.8); MEAN CELL VOLUME 90.1 FL (80.0-100.0); MEAN CORPUSCULAR HEMOGLOBIN 30.8 PG (27.0-34.0); MEAN CORPUSCULAR HGB CONC 34.2 % (32.0-36.0); MEAN PLATELET VOLUME 9.3 FL (7.0-11.0); MONO % 1.3 % (0.0-8.0); MONOCYTE # 0.1 TH/MM3 (0-0.9); NEUT % 88.3 % (16.0-70.0); PLATELET COUNT 341 TH/MM3 (150-450); RED BLOOD COUNT 4.15 MIL/MM3 (4.00-5.30); RED CELL DISTRIBUTION WIDTH 15.6 % (11.6-17.2); WHITE BLOOD COUNT 7.2 TH/MM3 (4.0-11.0)
[2017-07-29 12:41] LABS: ALBUMIN 3.2 GM/DL (3.4-5.0); ALKALINE PHOSPHATASE 67 U/L (45-117); ALT (GPT) 127 U/L (10-53); AST (GOT) 77 U/L (15-37); BICARBONATE 28.5 MEQ/L (21.0-32.0); BLOOD UREA NITROGEN 10 MG/DL (7-18); CALCIUM 9.1 MG/DL (8.5-10.1); CHLORIDE 103 MEQ/L (98-107); CREATININE 0.52 MG/DL (0.50-1.00); GLOMERULAR FILTRATION RATE 124 ML/MIN (>89); GLUCOSE,RANDOM 116 MG/DL (74-106); MAGNESIUM 1.9 MG/DL (1.5-2.5); PHOSPHORUS 2.3 MG/DL (2.5-4.9); SODIUM (NA) 138 MEQ/L (136-145); TOTAL BILIRUBIN ADULT 0.4 MG/DL (0.2-1.0); TOTAL PROTEIN 6.8 GM/DL (6.4-8.2)
[2017-07-29 18:24] VITALS: BP 109/59; PULSE 70; RESP 17; TEMP 97.8; O2SAT 95
[2017-07-29] MEDS: ZOLPIDEM TARTRATE 5 MG TAB PO PRN (23:54)
[2017-07-30 06:27] VITALS: BP 129/70; PULSE 62; RESP 17; TEMP 97.7; O2SAT 97
--- NOTE | 2017-07-30 08:53 | HHI.PYPN ---
Subjective Remarks Patient seen in [place] with nurse Nicholas, chart review, patient discussed with nurse. Patient medically perseveration disorganized continuing to ask for test though both the nurse and I have told her about prior negative tests she does not appear to process that along with all Review of Systems Except as stated in HPI: all other systems reviewed are Neg Mental Status Examination Appearance: Appropriate Consciousness: Alert Orientation: Person, Place, Date/Time Motor Activity: Normal gait Speech: Unremarkable Language: Adequate Fund of Knowledge: Inadequate Attention and Concentration: Adequate Memory: Impaired Mood: Appropriate Affect: Appropriate Thought Process & Associations: Tangential Thought Content: Bizarre thinking, Delusional, Other Hallucination Type: None Delusion Type: Bizarre (pertaining to her daughter who was allegedly missing), Paranoid Suicidal Ideation: No Suicidal Plan: No Suicidal Intention: No Homicidal Ideation: No Homicidal Plan: No Homicidal Intention: No Insight: Poor Judgment: Impulsive Results Labs Test 07/29/17 10:27 White Blood Count 7.2 TH/MM3 Red Blood Count 4.15 MIL/MM3 Hemoglobin 12.8 GM/DL Hematocrit 37.4 % Mean Corpuscular Volume 90.1 FL Mean Corpuscular Hemoglobin 30.8 PG Mean Corpuscular Hemoglobin Concent 34.2 % Red Cell Distribution Width 15.6 % Platelet Count 341 TH/MM3 Mean Platelet Volume 9.3 FL Neutrophils (%) (Auto) 88.3 % Lymphocytes (%) (Auto) 10.1 % Monocytes (%) (Auto) 1.3 % Eosinophils (%) (Auto) 0.1 % Basophils (%) (Auto) 0.2 % Neutrophils # (Auto) 6.4 TH/MM3 Lymphocytes # (Auto) 0.7 TH/MM3 Monocytes # (Auto) 0.1 TH/MM3 Eosinophils # (Auto) 0.0 TH/MM3 Basophils # (Auto) 0.0 TH/MM3 CBC Comment AUTO DIFF Differential Comment AUTO DIFF CONFIRMED Blood Urea Nitrogen 10 MG/DL Creatinine 0.52 MG/DL Random Glucose 116 MG/DL Total Protein 6.8 GM/DL Albumin 3.2 GM/DL Calcium Level 9.1 MG/DL Phosphorus Level 2.3 MG/DL Magnesium Level 1.9 MG/DL Alkaline Phosphatase 67 U/L Aspartate Amino Transf (AST/SGOT) 77 U/L Alanine Aminotransferase (ALT/SGPT) 127 U/L Total Bilirubin 0.4 MG/DL Sodium Level 138 MEQ/L Potassium Level 3.7 MEQ/L Chloride Level 103 MEQ/L Carbon Dioxide Level 28.5 MEQ/L Anion Gap 7 MEQ/L Estimat Glomerular Filtration Rate 124 ML/MIN Vitals/IOs Vital Signs Date Time Temp Pulse Resp B/P (MAP) Pulse Ox O2 Delivery O2 Flow Rate FiO2 07/30/17 06:27 97.7 62 17 129/70 (89) 97 Intake and Output 07/30/17 07/30/17 07/31/17 08:00 16:00 00:00 Intake Total 720 ml Balance 720 ml Assessment & Plan Problem List: (1) Psychosis not due to substance or known physiological condition ICD Codes: F29 - Unspecified psychosis not due to a substance or known physiological condition Assessment & Plan Estimated LOS: days patient continue psychotic disorganized wandering. Justification for Cont. Inpt. At this time patient would decompensated placed in the lower level of care Discharge Planning To be determined Ricco Neff MD Jul 30, 2017 08:53
[2017-07-30] MEDS: ENOXAPARIN SODIUM 100 MG/ML SYRINGE SQ SCH ×2 (08:58→20:33)
[2017-07-30] MEDS: BACITRACIN TOP OINT 15 GM TUBE TOPICAL SCH ×2 (08:59→20:47)
[2017-07-30] MEDS: HALOPERIDOL 5 MG TAB PO SCH ×2 (08:59→20:33)
[2017-07-30] MEDS: SODIUM CHLORIDE 0.9% FLUSH 10 ML FLUSH IV FLUSH SCH ×3 (09:00→21:00)
--- NOTE | 2017-07-30 10:19 | HHI.PR ---
Subjective Remarks Patient seen and examined. Afebrile vital signs stable. She is markedly confused and does not seem to understand much of our conversation. Explained the plan is to evaluate her for possible meniscectomy for her breast cancer. Recommendations by her oncologist and plastic surgery appreciated. Objective Vitals Vital Signs Date Time Temp Pulse Resp B/P (MAP) Pulse Ox O2 Delivery O2 Flow Rate FiO2 07/30/17 06:27 97.7 62 17 129/70 (89) 97 07/29/17 18:24 97.8 70 17 109/59 (76) 95 I/O 07/29/17 07/29/17 07/29/17 07/30/17 07/30/17 07/30/17 07:00 15:00 23:00 07:00 15:00 23:00 Intake Total 360 ml 2100 ml 720 ml 420 ml Balance 360 ml 2100 ml 720 ml 420 ml Intake Oral 360 ml 2100 ml 720 ml 420 ml # Voids 5 1 # Bowel Movements 1 Result Diagram: 07/29/17 1027 07/29/17 1027 Imaging Last Impressions Toe X-Ray 07/14/17 0000 Signed Impressions: Service Date/Time: Friday, July 14, 2017 10:34 - CONCLUSION: 1. Small exostosis of the toe. 2. No acute fracture or dislocation. Lj Clark MD Upper Extremity Ultrasound 07/13/17 0000 Signed Impressions: Service Date/Time: July 09:19 - CONCLUSION: Interval decrease in the size of the enlarged axillary lymph node. Jayden Brunner MD Objective Remarks GEN: Well-developed, well-nourished patient. No acute distress. CV: Regular rate and rhythm without obvious murmurs LUNGS: Clear to auscultation bilaterally. Normal respiratory effort. No wheezes , rales, rhonchi. GI: Soft, nontender, nondistended. No palpable masses. Bowel sounds WNL. EXT: No edema. NEURO/PSYCH: Afocal. Awake, alert, and oriented x3. Appropriate insight and judgment. Medications and IVs Current Medications Medications (Trade) Dose Ordered Sig/Renard Route Start Time Stop Time Status Last Admin (Ambien) 5 mg HS PRN PO 07/11/17 21:15 07/29/17 23:54 (Lovenox Inj) 90 mg Q12H SQ 07/11/17 22:00 07/30/17 08:58 (Ativan) 1 mg Q6H PRN PO 07/11/17 21:15 07/19/17 05:03 (Ativan Inj) 1 mg Q6H PRN IM 07/11/17 21:15 (Tylenol) 650 mg Q4H PRN PO 07/11/17 21:15 07/17/17 20:42 (Milk Of Magnesia Liq) 30 ml DAILY PRN PO 07/11/17 21:15 (Mag-Al Plus Susp Liq) 30 ml Q6H PRN PO 07/11/17 21:15 07/26/17 21:17 (Habitrol 21 Mg Patch.24 Hr) 1 patch DAILY PRN T-DERMAL 07/11/17 21:15 (Cogentin) 1 mg Q12H PRN PO 07/11/17 21:15 (Cogentin Inj) 1 mg Q12H PRN IM 07/11/17 21:15 (Percocet 5-325 Mg) 1 tab Q6H PRN PO 07/11/17 21:15 07/14/17 14:25 (Pill Splitter) 1 ea UNSCH PRN OTHER 07/11/17 21:30 (NS Flush) 2 ml BID IV FLUSH 07/15/17 21:00 07/27/17 21:18 (Haldol) 10 mg BID PO 07/25/17 10:30 07/30/17 08:59 (Baciguent Oint) 1 applic Q12HR TOPICAL 07/26/17 21:00 07/30/17 08:59 (Heparin Central Flush) 250 units UNSCH PRN IV FLUSH 07/28/17 23:45 (Heparin Central Flush) 500 units UNSCH IV FLUSH 07/28/17 23:45 07/29/17 00:03 (NS Flush) 5 ml UNSCH PRN IV FLUSH 07/28/17 23:45 A/P Problem List: (1) HER2-positive carcinoma of right breast ICD Code: C50.911 - Malignant neoplasm of unspecified site of right female breast (2) Deep venous thrombosis of left upper extremity ICD Code: I82.622 - Acute embolism and thrombosis of deep veins of left upper extremity (3) Psychosis not due to substance or known physiological condition ICD Code: F29 - Unspecified psychosis not due to a substance or known physiological condition Assessment and Plan 52 years old female with psychosis, schizophrenia, LUE DVT, breast CA, who is HER2 positive. Schizophrenia - Treatment per psychiatry. LUE DVT - Patient seen and evaluated by hem/onc. On lovenox therapeutic dose. - LUE with little to no swelling noted, no pain reported. (if no improvement of LUE by US on LMWH, Dr Sewell planned to remove port (likely in 6 weeks when chemo finish) HER 2 shirley positive R breast CA - on chemo- last dose 07/14/17 - planned taxol every week with Dr Villareal. - CHEMO per schedule protocol WILL NEED RIGHT SIDE MASTECTOMY IN FUTURE WITH PROBABLE RECONSTRUCTIVE SURGERY -Plastic surgery consulted, regulations appreciated Left 2nd toe and right big toe cellulitis - - Resolved S/P total 10 days course of Cefazolin + Keflex. 07/25. Superficial excoriations/ wounds on left upper arm - improved - continue Bacitracin bid DVT prophylaxis-lovenox Labs reviewed stable Discharge Planning Pending psychiatry clearance Panchito Olson MD, R3 Jul 30, 2017 10:19
[2017-07-30 19:06] VITALS: BP 147/81; PULSE 79; RESP 18; TEMP 97.3; O2SAT 97
[2017-07-31 05:08] VITALS: BP 109/65; PULSE 86; RESP 16; TEMP 97.3; O2SAT 98
[2017-07-31] MEDS: SODIUM CHLORIDE 0.9% FLUSH 10 ML FLUSH IV FLUSH SCH ×2 (09:00→20:58)
--- NOTE | 2017-07-31 09:45 | HHI.PR ---
Subjective Remarks Follow-up visit for breast cancer, DVT of left upper extremity, and psychosis. Patient seen and examined sitting up in chair in the hallway in no acute distress. She reports that left arm swelling has improved, denies any pain or discomfort. Denies any fevers, chills, nausea, vomiting, diarrhea, headache, shortness of breath or cough. 2-15 seen lying in bed No new complaints Denies any pain shortness of breath or chest pain at the moment 2-16 TO HAVE CHEMOTHERAPY TODAY PER ONCOLOGY WILL NEED MASTECTOMY IN FUTURE DW RN AND PT 2-17 SEEN BY SURGERY WILL NEED MASTECTOMY QUESTIONS ANSWERED DW PT AND RN 2-18 Patient seen and examined. Afebrile vital signs stable. She is markedly confused and does not seem to understand much of our conversation. Explained the plan is to evaluate her for possible MASTECTOMY for her breast cancer. Recommendations by her oncologist and plastic surgery appreciated. 2- NO NEW COMPLAINTS DW RN AND PT Objective Vitals Vital Signs Date Time Temp Pulse Resp B/P (MAP) Pulse Ox O2 Delivery O2 Flow Rate FiO2 07/31/17 05:08 97.3 86 16 109/65 (80) 98 07/30/17 19:06 97.3 79 18 147/81 (103) 97 I/O 07/30/17 07/30/17 07/30/17 07/31/17 07/31/17 07/31/17 07:00 15:00 23:00 07:00 15:00 23:00 Intake Total 720 ml 780 ml 1560 ml 360 ml Balance 720 ml 780 ml 1560 ml 360 ml Intake Oral 720 ml 780 ml 1560 ml 360 ml # Voids 1 2 Result Diagram: 07/29/17 1027 07/29/17 1027 Other Results Laboratory Tests Test 07/29/17 10:27 White Blood Count 7.2 TH/MM3 Red Blood Count 4.15 MIL/MM3 Hemoglobin 12.8 GM/DL Hematocrit 37.4 % Mean Corpuscular Volume 90.1 FL Mean Corpuscular Hemoglobin 30.8 PG Mean Corpuscular Hemoglobin Concent 34.2 % Red Cell Distribution Width 15.6 % Platelet Count 341 TH/MM3 Mean Platelet Volume 9.3 FL Neutrophils (%) (Auto) 88.3 % Lymphocytes (%) (Auto) 10.1 % Monocytes (%) (Auto) 1.3 % Eosinophils (%) (Auto) 0.1 % Basophils (%) (Auto) 0.2 % Neutrophils # (Auto) 6.4 TH/MM3 Lymphocytes # (Auto) 0.7 TH/MM3 Monocytes # (Auto) 0.1 TH/MM3 Eosinophils # (Auto) 0.0 TH/MM3 Basophils # (Auto) 0.0 TH/MM3 CBC Comment AUTO DIFF Differential Comment AUTO DIFF CONFIRMED Blood Urea Nitrogen 10 MG/DL Creatinine 0.52 MG/DL Random Glucose 116 MG/DL Total Protein 6.8 GM/DL Albumin 3.2 GM/DL Calcium Level 9.1 MG/DL Phosphorus Level 2.3 MG/DL Magnesium Level 1.9 MG/DL Alkaline Phosphatase 67 U/L Aspartate Amino Transf (AST/SGOT) 77 U/L Alanine Aminotransferase (ALT/SGPT) 127 U/L Total Bilirubin 0.4 MG/DL Sodium Level 138 MEQ/L Potassium Level 3.7 MEQ/L Chloride Level 103 MEQ/L Carbon Dioxide Level 28.5 MEQ/L Anion Gap 7 MEQ/L Estimat Glomerular Filtration Rate 124 ML/MIN Imaging Last Impressions Toe X-Ray 07/14/17 0000 Signed Impressions: Service Date/Time: Friday, July 14, 2017 10:34 - CONCLUSION: 1. Small exostosis of the toe. 2. No acute fracture or dislocation. Lj Clark MD Upper Extremity Ultrasound 07/13/17 0000 Signed Impressions: Service Date/Time: July 09:19 - CONCLUSION: Interval decrease in the size of the enlarged axillary lymph node. Jayden Brunner MD Objective Remarks GENERAL: Awake, alert, pleasant, in NAD. SKIN: Warm and dry. LUE with scattered open areas that are dry, with no redness or warmth noted, open to air. IMPROVED HEAD: Normocephalic. EYES: No scleral icterus. No injection or drainage. NECK: Supple, trachea midline. No JVD or lymphadenopathy. CARDIOVASCULAR: Regular rate and rhythm without murmurs, gallops, or rubs. S1, S2 NO S3 OR S4 RESPIRATORY: Breath sounds equal bilaterally. No accessory muscle use. GASTROINTESTINAL: Abdomen soft, non-tender, nondistended. Normoactive bowel sounds in all quadrants. MUSCULOSKELETAL: No cyanosis, or edema. Moves all extremities, ambulating without difficulties or assistive devices. NEUROLOGIC: Awake and alert, moving all extremities with no noted weakness. Speech is clear, hard of hearing, no facial droop noted. Insight and judgment is good Mood and behavior somewhat appropriate Procedures CHEMO Medications and IVs Current Medications Famotidine (Pepcid) 20 mg ONCE PO ; Start 07/11/17 at 21:15; Stop 07/11/17 at 23 :59; Status DC Haloperidol (Haldol) 7.5 mg BID PO Last administered on 07/24/17at 20:47; Start 07/12/17 at 09:00; Stop 07/25/17 at 08:58; Status DC Zolpidem Tartrate (Ambien) 5 mg HS PRN PO INSOMNIA Last administered on at 23:54; Start 07/11/17 at 21:15 Enoxaparin Sodium (Lovenox Inj) 90 mg Q12H SQ Last administered on 07/30/17at 20 :33; Start 07/11/17 at 22:00 Lorazepam (Ativan) 1 mg Q6H PRN PO MODERATE TO SEVERE ANXIETY Last administered on 07/19/17at 05:03; Start 07/11/17 at 21:15 Lorazepam (Ativan Inj) 1 mg Q6H PRN IM MODERATE TO SEVERE ANXIETY; Start at 21:15 Acetaminophen (Tylenol) 650 mg Q4H PRN PO Pain 1-5 or Temp >101F Last administered on 07/17/17at 20:42; Start 07/11/17 at 21:15 Magnesium Hydroxide (Milk Of Magnesia Liq) 30 ml DAILY PRN PO CONSTIPATION; Start 07/11/17 at 21:15 Al Hydrox/Mg Hydrox/Simethicone (Mag-Al Plus Susp Liq) 30 ml Q6H PRN PO DYSPEPSIA Last administered on 07/26/17at 21:17; Start 07/11/17 at 21:15 Nicotine (Habitrol 21 Mg Patch.24 Hr) 1 patch DAILY PRN T-DERMAL nicotine craving; Start 07/11/17 at 21:15 Benztropine Mesylate (Cogentin) 1 mg Q12H PRN PO EXTRA PYRAMIDAL SYMPTOMS; Start 07/11/17 at 21:15 Benztropine Mesylate (Cogentin Inj) 1 mg Q12H PRN IM EXTRA PYRAMIDAL SYMPTOMS; Start 07/11/17 at 21:15 Oxycodone/ Acetaminophen (Percocet 5-325 Mg) 1 tab Q6H PRN PO PAIN 6-10 Last administered on 07/14/17at 14:25; Start 07/11/17 at 21:15 Miscellaneous (Pill Splitter) 1 ea UNSCH PRN OTHER SEE LABEL COMMENTS; Start at 21:30 Potassium Chloride (KCl) 20 meq ONCE ONCE PO Last administered on 07/12/17at 12 :47; Start 07/12/17 at 12:30; Stop 07/12/17 at 12:31; Status DC Cephalexin Monohydrate (Keflex) 500 mg Q6HR PO Last administered on 07/14/17at 06 :00; Start 07/13/17 at 12:00; Stop 07/14/17 at 08:37; Status DC Paclitaxel 151 mg/ Sodium Chloride 275.1667 ml @ 275.... ONCE ONCE IV ; Start 07/14/17 at 15:30; Stop 07/14/17 at 16:29; Status Cancel Lorazepam (Ativan Inj) 0.5 mg ONCE PRN IV SEE LABEL COMMENTS; Start 07/13/17 at 16:00; Stop 07/14/17 at 23:59; Status Cancel Dexamethasone Sodium Phosphate 10 mg/Sodium Chloride 52.5 ml @ 210 mls/hr ONCE PRN IV SEE LABEL COMMENTS; Start 07/14/17 at 16:00; Stop 07/14/17 at 23:59; Status Cancel Diphenhydramine HCl (Benadryl) 25 mg ONCE PRN PO SEE LABEL COMMENTS; Start 07/14 at 15:45; Stop 07/14/17 at 23:59; Status Cancel Famotidine (Pepcid) 20 mg ONCE PRN PO SEE LABEL COMMENTS; Start 07/14/17 at 15: 45; Stop 07/14/17 at 23:59; Status Cancel Cefazolin Sodium 1000 mg/Sodium Chloride 100 ml @ 200 mls/hr Q8H IV Last administered on 07/17/17at 04:00; Start 07/14/17 at 12:00; Stop 07/17/17 at 10:57; Status DC Dexamethasone Sodium Phosphate 10 mg/Sodium Chloride 52.5 ml @ 220 mls/hr ONCE ONCE IV Last administered on 2/2/18at 15:49; Start 07/14/17 at 15:00; Stop 07/14/17 at 15:14; Status DC Diphenhydramine HCl (Benadryl) 25 mg ONCE ONCE PO Last administered on 15:49; Start 07/14/17 at 15:00; Stop 07/14/17 at 15:01; Status DC Famotidine (Pepcid) 20 mg ONCE ONCE PO Last administered on 07/14/17 15:49; Start 07/14/17 at 15:00; Stop 07/14/17 at 15:01; Status DC Paclitaxel 154.4 mg/Sodium Chloride 275.7333 ml @ 275.... ONCE ONCE IV Last administered on 07/14/17 17:22; Start 07/14/17 at 16:00; Stop 07/14/17 at 16:59; Status DC Sodium Chloride 250 ml @ 0 mls/hr ONCE ONCE IV Last administered on 07/14/17 16:00; Start 07/14/17 at 16:00; Stop 07/14/17 at 16:01; Status DC Lorazepam (Ativan Inj) 1 mg STAT STAT IV PUSH Last administered on 07/14/17 16 :00; Start 07/14/17 at 15:52; Stop 07/14/17 at 15:53; Status DC Sodium Chloride (NS Flush) 2 ml BID IV FLUSH Last administered on 07/27/17at 21: 18; Start 07/15/17 at 21:00 Cephalexin Monohydrate (Keflex) 500 mg Q6HR PO Last administered on 07/25/17at 17:11; Start 07/17/17 at 12:00; Stop 07/25/17 at 17:12; Status DC Sodium Chloride 250 ml @ 0 mls/hr ONCE ONCE IV ; Start 07/21/17 at 14:45; Stop 07/21/17 at 14:45; Status DC Lorazepam (Ativan Inj) 0.5 mg ONCE ONCE IV Last administered on 07/21/17at 15:36 ; Start 07/21/17 at 16:00; Stop 07/21/17 at 16:01; Status DC Sodium Chloride 250 ml @ 0 mls/hr ONCE ONCE IV Last administered on 07/21/17at 17:09; Start 07/21/17 at 17:00; Stop 07/21/17 at 17:01; Status DC Dexamethasone Sodium Phosphate 10 mg/Sodium Chloride 52.5 ml @ 210 mls/hr ONCE ONCE IV Last administered on 07/21/17at 15:42; Start 07/21/17 at 16:00; Stop 07/21/17 at 16:14; Status DC Diphenhydramine HCl (Benadryl) 25 mg ONCE ONCE PO Last administered on at 15:36; Start 07/21/17 at 16:00; Stop 07/21/17 at 16:01; Status DC Paclitaxel 156.8 mg/Sodium Chloride 276.1333 ml @ 276.... ONCE ONCE IV Last administered on 07/21/17at 17:09; Start 07/21/17 at 17:00; Stop 07/21/17 at 17:59; Status DC Famotidine (Pepcid) 20 mg ONCE ONCE PO Last administered on 07/21/17at 15:36; Start 07/21/17 at 16:00; Stop 07/21/17 at 16:01; Status DC Heparin Sodium (Porcine) (Heparin Central Flush) 400 units ONCE ONCE IV FLUSH Last administered on 07/23/17at 13:04; Start 07/23/17 at 12:30; Stop 07/23/17 at 12:31; Status DC Haloperidol (Haldol) 10 mg BID PO Last administered on 07/30/17at 20:33; Start 07/25/17 at 10:30 Bacitracin (Baciguent Oint) 1 applic Q12HR TOPICAL Last administered on at 20:47; Start 07/26/17 at 21:00 Sodium Chloride 250 ml @ 30 mls/hr ONCE ONCE IV ; Start 07/28/17 at 14:00; Stop 07/28/17 at 22:19; Status Cancel Dexamethasone Sodium Phosphate 20 mg/Sodium Chloride 55 ml @ 220 mls/hr ONCE ONCE IV ; Start 07/28/17 at 13:00; Stop 07/28/17 at 13:14; Status Cancel Diphenhydramine HCl (Benadryl) 25 mg ONCE ONCE PO ; Start 07/28/17 at 13:00; Stop 07/28/17 at 13:01; Status Cancel Famotidine (Pepcid) 20 mg ONCE ONCE PO ; Start 07/28/17 at 13:00; Stop at 13:01; Status Cancel Paclitaxel 156 mg/ Sodium Chloride 526 ml @ 263 mls/hr ONCE ONCE IV ; Start at 14:00; Stop 07/28/17 at 15:59; Status Cancel Sodium Chloride 250 ml @ 30 mls/hr ONCE ONCE IV ; Start 07/28/17 at 16:00; Stop 07/29/17 at 00:19; Status Cancel Lorazepam (Ativan Inj) 0.5 mg ONCE ONCE IV ; Start 07/28/17 at 15:30; Stop at 15:31; Status Cancel Pertuzumab 420 mg/ Sodium Chloride 264 ml @ 528 mls/hr ONCE ONCE IV ; Start at 16:00; Stop 07/28/17 at 16:29; Status Cancel Trastuzumab 510 mg/Sodium Chloride 250 ml @ 166.667 mls/hr ONCE ONCE IV ; Start 07/28/17 at 17:00; Stop 07/28/17 at 18:29; Status Cancel Sodium Chloride 250 ml @ 30 mls/hr ONCE ONCE IV ; Start 07/28/17 at 17:00; Stop 07/29/17 at 01:19; Status Cancel Sodium Chloride 250 ml @ 30 mls/hr ONCE ONCE IV ; Start 07/28/17 at 14:00; Stop 07/28/17 at 22:19; Status Cancel Lorazepam (Ativan Inj) 0.5 mg ONCE ONCE IV ; Start 07/28/17 at 13:30; Stop at 13:31; Status Cancel Pertuzumab 420 mg/ Sodium Chloride 264 ml @ 528 mls/hr ONCE ONCE IV ; Start at 14:00; Stop 07/28/17 at 14:29; Status Cancel Trastuzumab 510 mg/Sodium Chloride 250 ml @ 166.667 mls/hr ONCE ONCE IV Last administered on 07/28/17at 15:24; Start 07/28/17 at 14:00; Stop 07/28/17 at 15:29 ; Status DC Sodium Chloride 250 ml @ 30 mls/hr ONCE ONCE IV Last administered on at 15:26; Start 07/28/17 at 14:00; Stop 07/28/17 at 22:19; Status DC Sodium Chloride 250 ml @ 30 mls/hr ONCE ONCE IV Last administered on at 18:06; Start 07/28/17 at 16:00; Stop 07/29/17 at 00:19; Status DC Lorazepam (Ativan Inj) 0.5 mg ONCE ONCE IV ; Start 07/28/17 at 15:30; Stop at 15:31; Status DC Pertuzumab 420 mg/ Sodium Chloride 264 ml @ 264 mls/hr ONCE ONCE IV Last administered on 07/28/17at 18:03; Start 07/28/17 at 16:00; Stop 07/28/17 at 16:59 ; Status DC Sodium Chloride 250 ml @ 30 mls/hr ONCE ONCE IV Last administered on at 20:15; Start 07/28/17 at 18:00; Stop 07/29/17 at 02:19; Status DC Dexamethasone Sodium Phosphate 20 mg/Sodium Chloride 55 ml @ 220 mls/hr ONCE ONCE IV Last administered on 07/28/17at 20:08; Start 07/28/17 at 17:00; Stop at 17:14; Status DC Diphenhydramine HCl (Benadryl) 25 mg ONCE ONCE PO Last administered on at 20:08; Start 07/28/17 at 17:00; Stop 07/28/17 at 17:01; Status DC Famotidine (Pepcid) 20 mg ONCE ONCE PO Last administered on 07/28/17at 20:08; Start 07/28/17 at 17:00; Stop 07/28/17 at 17:01; Status DC Paclitaxel 156 mg/ Sodium Chloride 276 ml @ 138 mls/hr ONCE ONCE IV Last administered on 07/28/17at 21:31; Start 07/28/17 at 18:00; Stop 07/28/17 at 19:59 ; Status DC Acetaminophen (Tylenol) 650 mg ONCE ONCE PO Last administered on 07/28/17at 14: 02; Start 07/28/17 at 13:30; Stop 07/28/17 at 13:31; Status DC Diphenhydramine HCl (Benadryl) 25 mg ONCE ONCE PO Last administered on at 14:02; Start 07/28/17 at 13:30; Stop 07/28/17 at 13:31; Status DC Granisetron HCl (Kytril Inj) 1 mg ONCE ONCE IV PUSH Last administered on at 20:08; Start 07/28/17 at 17:30; Stop 07/28/17 at 17:31; Status DC Heparin Sodium (Porcine) (Heparin Central Flush) 250 units UNSCH PRN IV FLUSH SEE PROTOCOL TABLE; Start 07/28/17 at 23:45 Heparin Sodium (Porcine) (Heparin Central Flush) 500 units UNSCH IV FLUSH Last administered on 07/29/17at 00:03; Start 07/28/17 at 23:45 Sodium Chloride (NS Flush) 5 ml UNSCH PRN IV FLUSH SEE LABEL COMMENTS; Start at 23:45 A/P Problem List: (1) HER2-positive carcinoma of right breast ICD Code: C50.911 - Malignant neoplasm of unspecified site of right female breast (2) Deep venous thrombosis of left upper extremity ICD Code: I82.622 - Acute embolism and thrombosis of deep veins of left upper extremity (3) Psychosis not due to substance or known physiological condition ICD Code: F29 - Unspecified psychosis not due to a substance or known physiological condition Assessment and Plan 52 years old female with psychosis, schizophrenia, LUE DVT, breast CA, who is HER2 positive. Schizophrenia - Treatment per psychiatry. LUE DVT - Patient seen and evaluated by hem/onc. On lovenox therapeutic dose. - LUE with little to no swelling noted, no pain reported. (if no improvement of LUE by US on LMWH, Dr Sewell planned to remove port (likely in 6 weeks when chemo finish) HER 2 shirley positive R breast CA - on chemo- last dose 07/14/17 - planned taxol every week with Dr Villareal. -- CHEMO TODAY 2-16 WILL NEED RIGHT SIDE MASTECTOMY IN FUTURE WITH PROBABLE RECONSTRUCTIVE SURGERY Left 2nd toe and right big toe cellulitis - - Resolved S/P total 10 days course of Cefazolin + Keflex. 07/25. Superficial excoriations/ wounds on left upper arm - improved - continue Bacitracin bid DVT prophylaxis-lovenox Labs reviewed stable Discussed with nurse. Discharge Planning Pending psychiatric clearance Brandon Teixeira DO Jul 31, 2017 09:45
[2017-07-31] MEDS: ENOXAPARIN SODIUM 100 MG/ML SYRINGE SQ SCH ×2 (10:51→21:07)
[2017-07-31] MEDS: HALOPERIDOL 5 MG TAB PO SCH ×2 (10:51→21:07)
[2017-07-31] MEDS: BACITRACIN TOP OINT 15 GM TUBE TOPICAL SCH ×2 (10:58→21:07)
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
[2017-07-31 18:40] VITALS: BP 97/54; PULSE 84; RESP 16; TEMP 97.8; O2SAT 97
[2017-08-01 05:44] VITALS: BP 100/58; PULSE 71; RESP 18; TEMP 97.3; O2SAT 96
[2017-08-01] MEDS: SODIUM CHLORIDE 0.9% FLUSH 10 ML FLUSH IV FLUSH SCH ×2 (09:00→20:55)
[2017-08-01] MEDS: ENOXAPARIN SODIUM 100 MG/ML SYRINGE SQ SCH ×2 (09:18→22:00)
[2017-08-01] MEDS: HALOPERIDOL 5 MG TAB PO SCH ×2 (09:18→20:54)
[2017-08-01] MEDS: BACITRACIN TOP OINT 15 GM TUBE TOPICAL SCH ×2 (09:18→20:54)
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
--- NOTE | 2017-08-01 10:58 | HHI.PR ---
Subjective Remarks sleeping felt warm only answers question by yes or no had chemo on 07/28 per notes still awaiting on mastectomy plans as pt cannot really understand risks and benefits - per plastic sx notes Objective Vitals Vital Signs Date Time Temp Pulse Resp B/P (MAP) Pulse Ox O2 Delivery O2 Flow Rate FiO2 08/01/17 05:44 97.3 71 18 100/58 (72) 96 07/31/17 18:40 97.8 84 16 97/54 (68) 97 I/O 07/31/17 07/31/17 07/31/17 08/01/17 08/01/17 08/01/17 07:00 15:00 23:00 07:00 15:00 23:00 Intake Total 1560 ml 1560 ml 840 ml 840 ml 480 ml Balance 1560 ml 1560 ml 840 ml 840 ml 480 ml Intake Oral 1560 ml 1560 ml 840 ml 840 ml 480 ml # Voids 2 1 1 Result Diagram: 07/29/17 1027 07/29/17 1027 Objective Remarks sleepy today but would answer questions by nodding head, pleasant skin-Left chest mediport site- clean, no erythema or swelling heart rate is regular, no murmur abdomen soft and non tender, no rebound, no guarding lung sounds are clear, equal bilaterally no calf asymmetry or edema, non tender calf, LUE significantly bigger the RUE Procedures CHEMO A/P Problem List: (1) HER2-positive carcinoma of right breast ICD Code: C50.911 - Malignant neoplasm of unspecified site of right female breast (2) Deep venous thrombosis of left upper extremity ICD Code: I82.622 - Acute embolism and thrombosis of deep veins of left upper extremity (3) Psychosis not due to substance or known physiological condition ICD Code: F29 - Unspecified psychosis not due to a substance or known physiological condition Assessment and Plan Impression/ Plan: schizophrenia - per psychiatry LUE DVT on lovenox therapeutic dose ; serial US per hematology, if no improvement of LUE by US on LMWH, Dr Sewell planned to remove port (likely when chemo finish) redness and itching around port site- resolved perimenopausal hot flushes toe cellulitis- resolved- was treated with cefazolin, then keflex 07/25 hypokalemia - resolved HER 2 shirley positive R breast CA- on chemo- last dose 07/28/17 - planned taxol every week with Dr Villareal. need mastectomy, followed by reconstruction by plastics, both sx notes reviewed GI prophylaxis with lovenox Discharge Planning per psychiatry and oncology likely will need to finish inpatient chemo Lucita Valentin MD Aug 01, 2017 10:58
[2017-08-01 17:47] VITALS: BP 90/54; PULSE 73; RESP 18; TEMP 98; O2SAT 99
[2017-08-02 04:22] VITALS: BP 113/73; PULSE 85; RESP 17; TEMP 98.6; O2SAT 96
[2017-08-02] MEDS: SODIUM CHLORIDE 0.9% FLUSH 10 ML FLUSH IV FLUSH SCH ×2 (09:00→21:00)
[2017-08-02] MEDS: BACITRACIN TOP OINT 15 GM TUBE TOPICAL SCH ×2 (09:00→21:00)
[2017-08-02] MEDS: HALOPERIDOL 5 MG TAB PO SCH ×2 (09:06→21:00)
--- NOTE | 2017-08-02 09:44 | HHI.PR ---
Subjective Remarks quite sleepy again, answers only yes or no questions denies any acute symptoms overnight Objective Vitals Vital Signs Date Time Temp Pulse Resp B/P (MAP) Pulse Ox O2 Delivery O2 Flow Rate FiO2 08/02/17 04:22 98.6 85 17 113/73 (86) 96 08/01/17 17:47 98.0 73 18 90/54 (66) 99 I/O 08/01/17 08/01/17 08/01/17 08/02/17 08/02/17 08/02/17 07:00 15:00 23:00 07:00 15:00 23:00 Intake Total 840 ml 1200 ml 2760 ml Balance 840 ml 1200 ml 2760 ml Intake Oral 840 ml 1200 ml 2760 ml # Voids 1 4 1 Result Diagram: 07/29/17 1027 07/29/17 1027 Objective Remarks sleepy again, but pleasant, no acute issues, nursing reports she ambulates during the day skin- redness and itching (mild) around Left chest mediport site- mostly resolved today. LUE with multiple skin blisters healing heart rate is regular, no murmur abdomen soft and non tender, no rebound, no guarding lung sounds are clear, equal bilaterally no calf asymmetry or edema, non tender calf, LUE significantly bigger the RUE, though much improved from a few weeks ago Procedures CHEMO A/P Problem List: (1) HER2-positive carcinoma of right breast ICD Code: C50.911 - Malignant neoplasm of unspecified site of right female breast (2) Deep venous thrombosis of left upper extremity ICD Code: I82.622 - Acute embolism and thrombosis of deep veins of left upper extremity (3) Psychosis not due to substance or known physiological condition ICD Code: F29 - Unspecified psychosis not due to a substance or known physiological condition Assessment and Plan Impression/ Plan: schizophrenia - per psychiatry LUE DVT on lovenox therapeutic dose ; serial US per hematology, if no improvement of LUE by US on LMWH, Dr Sewell planned to remove port (likely in 6 weeks when chemo finish) redness and itching around port site- resolved toe cellulitis- resolving, was on cefazolin, switched to keflex - course completed HER 2 shirley positive R breast CA- on chemo - planned taxol every week with Dr Villareal. hypokalemia - resolved will follow with gen sx and plastics re mastectomy and reconstruction, notes reviewed GI prophylaxis with lovenox Discharge Planning per psychiatry and oncology likely will need to finish inpatient chemo Lucita Valentin MD Aug 02, 2017 09:44
[2017-08-02] MEDS: ENOXAPARIN SODIUM 100 MG/ML SYRINGE SQ SCH ×2 (10:00→21:57)
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
--- NOTE | 2017-08-02 15:32 | HHI.PR ---
Subjective Remarks Delayed note from 07/31/17 No acute changes overnight Objective Vital Signs Date Time Temp Pulse Resp B/P (MAP) Pulse Ox O2 Delivery O2 Flow Rate FiO2 08/02/17 04:22 98.6 85 17 113/73 (86) 96 08/01/17 17:47 98.0 73 18 90/54 (66) 99 I/O 08/01/17 08/01/17 08/01/17 08/02/17 08/02/17 08/02/17 07:00 15:00 23:00 07:00 15:00 23:00 Intake Total 840 ml 1200 ml 2760 ml 360 ml Balance 840 ml 1200 ml 2760 ml 360 ml Intake Oral 840 ml 1200 ml 2760 ml 360 ml # Voids 1 4 1 Result Diagram: 07/29/17 1027 07/29/17 1027 Objective Remarks No acute distress Alert responsive Moist mucous membranes PERRLA Skin without rash Respirations nonlabored Breast exam deferred Assessment and Plan Problem List: (1) HER2-positive carcinoma of right breast ICD Codes: C50.911 - Malignant neoplasm of unspecified site of right female breast Assessment and Plan 52-year-old female admitted under [place] act, currently being treated for schizophrenia and receiving chemotherapy for right locally advanced stage III breast cancer. Lengthy discussion had with patient again regarding her treatment, as well as the risks benefits and alternatives. Spent over 30 minutes discussing treatment options with patient. Following this, discussed care and patient discussion with Dr. Villareal. Patient will likely need radiation therapy. She is therefore at increased risk of complication with an implant-based reconstruction. Because patient desires implant-based reconstruction, performing a delayed implant-based reconstruction was discussed with the patient as this will simplify the patient's post mastectomy care as well as allow for reevaluation following radiation therapy. Should the patient have significant radiation associated changes, she may likely need a pedicled latissimus flap to bring in healthy uninjured tissue to the area. The patient and Dr. Villareal were in agreement with this plan. Bertin Astorga MD Aug 02, 2017 15:32
[2017-08-02 18:46] VITALS: BP 122/66; PULSE 82; RESP 18; TEMP 98; O2SAT 96
[2017-08-03 06:00] VITALS: BP 125/69; PULSE 77; RESP 18; TEMP 97.5; O2SAT 97
[2017-08-03] MEDS: BACITRACIN TOP OINT 15 GM TUBE TOPICAL SCH ×2 (08:06→20:12)
[2017-08-03] MEDS: HALOPERIDOL 5 MG TAB PO SCH ×2 (08:06→20:12)
[2017-08-03] MEDS: SODIUM CHLORIDE 0.9% FLUSH 10 ML FLUSH IV FLUSH SCH ×2 (08:08→20:11)
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
--- NOTE | 2017-08-03 11:08 | HHI.PR ---
Subjective Remarks had little bit of nose bleed when she blows her nose overnight but denies any other acute issues overnight noted to have hot flushes again this morning but is much more interactive today, ambulating in unit, rather than sleeping in Objective Vitals Vital Signs Date Time Temp Pulse Resp B/P (MAP) Pulse Ox O2 Delivery O2 Flow Rate FiO2 08/03/17 06:00 97.5 77 18 125/69 (87) 97 08/02/17 18:46 98.0 82 18 122/66 (84) 96 I/O 08/02/17 08/02/17 08/02/17 08/03/17 08/03/17 08/03/17 07:00 15:00 23:00 07:00 15:00 23:00 Intake Total 600 ml 1440 ml 240 ml Balance 600 ml 1440 ml 240 ml Intake Oral 600 ml 1440 ml 240 ml # Voids 1 5 1 Objective Remarks much more alert today, ambulating in unit, more talkative skin-Left chest mediport site- clean, no erythema or swelling heart rate is regular, no murmur abdomen soft and non tender, no rebound, no guarding lung sounds are clear, equal bilaterally no calf asymmetry or edema, non tender calf, LUE significantly bigger the RUE- but much improved compared to a few weeks ago Procedures CHEMO A/P Problem List: (1) HER2-positive carcinoma of right breast ICD Code: C50.911 - Malignant neoplasm of unspecified site of right female breast (2) Deep venous thrombosis of left upper extremity ICD Code: I82.622 - Acute embolism and thrombosis of deep veins of left upper extremity (3) Psychosis not due to substance or known physiological condition ICD Code: F29 - Unspecified psychosis not due to a substance or known physiological condition Assessment and Plan Impression/ Plan: schizophrenia - per psychiatry LUE DVT on lovenox therapeutic dose ; serial US per hematology, if no improvement of LUE by US on LMWH, Dr Sewell planned to remove port (likely when chemo finish) redness and itching around port site- resolved perimenopausal hot flushes toe cellulitis- resolved- was treated with cefazolin, then keflex 07/25 hypokalemia - resolved ; labs ordered by hematology on chemo days HER 2 shirley positive R breast CA- on chemo- last dose 2/16/18 - planned taxol every week with Dr Villareal. need mastectomy, followed by reconstruction by plastics, both sx notes reviewed GI prophylaxis with lovenox Discharge Planning per psychiatry and oncology likely will need to finish inpatient chemo Lucita Valentin MD Aug 03, 2017 11:08
[2017-08-03] MEDS: ENOXAPARIN SODIUM 100 MG/ML SYRINGE SQ SCH ×2 (11:40→20:12)
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
[2017-08-03 17:34] LABS: AUTOMATED NEUTROPHIL # 2.8 TH/MM3 (1.8-7.7); BASOPHIL % 0.7 % (0.0-2.0); EOSINOPHIL # 0.1 TH/MM3 (0-0.4); EOSINOPHIL % 2.5 % (0.0-4.0); HEMATOCRIT 36.8 % (35.0-46.0); HEMOGLOBIN 12.5 GM/DL (11.6-15.3); LYMPH % 35.1 % (9.0-44.0); LYMPHOCYTE # 1.7 TH/MM3 (1.0-4.8); MEAN CELL VOLUME 91.7 FL (80.0-100.0); MEAN CORPUSCULAR HEMOGLOBIN 31.2 PG (27.0-34.0); MEAN PLATELET VOLUME 8.7 FL (7.0-11.0); MONO % 5.2 % (0.0-8.0); MONOCYTE # 0.3 TH/MM3 (0-0.9); NEUT % 56.5 % (16.0-70.0); PLATELET COUNT 291 TH/MM3 (150-450); RED BLOOD COUNT 4.01 MIL/MM3 (4.00-5.30); RED CELL DISTRIBUTION WIDTH 16.1 % (11.6-17.2); WHITE BLOOD COUNT 4.9 TH/MM3 (4.0-11.0)
[2017-08-03 17:51] LABS: ALBUMIN 3.1 GM/DL (3.4-5.0); ALT (GPT) 54 U/L (10-53); AST (GOT) 15 U/L (15-37); BICARBONATE 32.4 MEQ/L (21.0-32.0); BLOOD UREA NITROGEN 13 MG/DL (7-18); CALCIUM 8.3 MG/DL (8.5-10.1); CHLORIDE 103 MEQ/L (98-107); CREATININE 0.63 MG/DL (0.50-1.00); GLOMERULAR FILTRATION RATE 100 ML/MIN (>89); GLUCOSE,RANDOM 81 MG/DL (74-106); SODIUM (NA) 139 MEQ/L (136-145)
[2017-08-03 17:54] LABS: ALKALINE PHOSPHATASE 64 U/L (45-117); TOTAL BILIRUBIN ADULT 0.6 MG/DL (0.2-1.0); TOTAL PROTEIN 6.5 GM/DL (6.4-8.2)
[2017-08-03 18:46] VITALS: BP 119/61; PULSE 73; RESP 18; TEMP 98; O2SAT 96
[2017-08-04 06:00] VITALS: BP 122/58; PULSE 64; RESP 17; TEMP 98.6; O2SAT 95
[2017-08-04] MEDS: BACITRACIN TOP OINT 15 GM TUBE TOPICAL SCH ×2 (09:00→20:47)
[2017-08-04] MEDS: SODIUM CHLORIDE 0.9% FLUSH 10 ML FLUSH IV FLUSH SCH ×2 (09:00→20:48)
[2017-08-04] MEDS: HALOPERIDOL 5 MG TAB PO SCH ×2 (09:00→20:47)
[2017-08-04] MEDS: ENOXAPARIN SODIUM 100 MG/ML SYRINGE SQ SCH ×2 (10:00→20:48)
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
[2017-08-04 13:00] VITALS: BP 115/73; PULSE 87; RESP 20; TEMP 98.5; O2SAT 97
--- NOTE | 2017-08-04 15:21 | PD.ONC.PN ---
Subjective Subjective Remarks Afebrile overnight. Patient resting in room in nad. Ready to receive chemotherapy. No complaints. Objective Data Date Time Temp Pulse Resp B/P (MAP) Pulse Ox O2 Delivery O2 Flow Rate FiO2 08/04/17 06:00 98.6 64 17 122/58 (79) 95 08/03/17 18:46 98.0 73 18 119/61 (80) 96 08/04/17 08/04/17 08/04/17 07:00 15:00 23:00 Intake Total 0 ml 360 ml Balance 0 ml 360 ml Result Diagram: 08/03/17 1646 08/03/17 1646 Laboratory Results Laboratory Tests Test 08/03/17 16:46 White Blood Count 4.9 TH/MM3 Red Blood Count 4.01 MIL/MM3 Hemoglobin 12.5 GM/DL Hematocrit 36.8 % Mean Corpuscular Volume 91.7 FL Mean Corpuscular Hemoglobin 31.2 PG Mean Corpuscular Hemoglobin Concent 34.0 % Red Cell Distribution Width 16.1 % Platelet Count 291 TH/MM3 Mean Platelet Volume 8.7 FL Neutrophils (%) (Auto) 56.5 % Lymphocytes (%) (Auto) 35.1 % Monocytes (%) (Auto) 5.2 % Eosinophils (%) (Auto) 2.5 % Basophils (%) (Auto) 0.7 % Neutrophils # (Auto) 2.8 TH/MM3 Lymphocytes # (Auto) 1.7 TH/MM3 Monocytes # (Auto) 0.3 TH/MM3 Eosinophils # (Auto) 0.1 TH/MM3 Basophils # (Auto) 0.0 TH/MM3 CBC Comment DIFF FINAL Differential Comment Blood Urea Nitrogen 13 MG/DL Creatinine 0.63 MG/DL Random Glucose 81 MG/DL Total Protein 6.5 GM/DL Albumin 3.1 GM/DL Calcium Level 8.3 MG/DL Alkaline Phosphatase 64 U/L Aspartate Amino Transf (AST/SGOT) 15 U/L Alanine Aminotransferase (ALT/SGPT) 54 U/L Total Bilirubin 0.6 MG/DL Sodium Level 139 MEQ/L Potassium Level 3.4 MEQ/L Chloride Level 103 MEQ/L Carbon Dioxide Level 32.4 MEQ/L Anion Gap 4 MEQ/L Estimat Glomerular Filtration Rate 100 ML/MIN Administered Medications Medications (Trade) Dose Ordered Sig/Renard Route PRN Reason Start Time Stop Time Status Last Admin Dose Admin Zolpidem Tartrate (Ambien) 5 mg HS PRN PO INSOMNIA 07/11/17 21:15 07/29/17 23:54 Enoxaparin Sodium (Lovenox Inj) 90 mg Q12H SQ 07/11/17 22:00 08/04/17 10:00 Lorazepam (Ativan) 1 mg Q6H PRN PO MODERATE TO SEVERE ANXIETY 07/11/17 21:15 07/19/17 05:03 Acetaminophen (Tylenol) 650 mg Q4H PRN PO Pain 1-5 or Temp >101F 07/11/17 21:15 07/17/17 20:42 Al Hydrox/Mg Hydrox/Simethicone (Mag-Al Plus Susp Liq) 30 ml Q6H PRN PO DYSPEPSIA 07/11/17 21:15 07/26/17 21:17 Oxycodone/ Acetaminophen (Percocet 5-325 Mg) 1 tab Q6H PRN PO PAIN 6-10 07/11/17 21:15 07/14/17 14:25 Sodium Chloride (NS Flush) 2 ml BID IV FLUSH 07/15/17 21:00 07/27/17 21:18 Haloperidol (Haldol) 10 mg BID PO 07/25/17 10:30 08/04/17 09:00 Bacitracin (Baciguent Oint) 1 applic Q12HR TOPICAL 07/26/17 21:00 08/04/17 09:00 Heparin Sodium (Porcine) (Heparin Central Flush) 500 units UNSCH IV FLUSH 07/28/17 23:45 07/29/17 00:03 Objective Remarks GENERAL: Middle aged female, supine in bed watching TV SKIN: Warm and dry. HEAD: Normocephalic. EYES: No injection or drainage. NECK: Supple, trachea midline. CARDIOVASCULAR: Regular rate and rhythm RESPIRATORY: Breath sounds equal bilaterally. No accessory muscle use. GASTROINTESTINAL: Abdomen soft, non-tender, nondistended. EXTREMITIES: No cyanosis NEUROLOGICAL: awake and alert, no obvious focal deficit Assessment/Plan Problem List: (1) HER2-positive carcinoma of right breast ICD Codes: C50.911 - Malignant neoplasm of unspecified site of right female breast Plan: 07/14: continue weekly therapy with Taxol. does not need Herceptin this week, was given q3 weeks dosing in clinic. 07/20/17. Continue weekly Taxol. Next week next dose Herceptin/Perjeta/Taxol is due. We discussed goal typically to give neoadjuvant therapy for 12 weeks or best response. She is tolerating chemotherapy well. She seems to understand the need to treat her cancer. 07/21: Taxol today. monitor for adverse reaction. 07/27: obtain labs, prepare for Herceptin/Perjeta and Taxol tomorrow. 07/28: Herceptin/Perjeta/Taxol today. tolerating chemotherapy. 08/03: plan for weekly taxol tomorrow. 08/04: proceed with weekly taxol. after finishing 12 weeks of chemotherapy, will plan for mastectomy, then reconstruction. (2) Deep venous thrombosis of left upper extremity ICD Codes: I82.622 - Acute embolism and thrombosis of deep veins of left upper extremity Plan: --on therapeutic dose Lovenox Assessment 52y/o female with locally advanced HER2/shirley over expressing ER positive right breast cancer currently admitted for psychosis. 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 h/o Chemotherapy induced anemia. Plan 1. give weekly taxol today 2. continue Lovenox. Attending Statement The exam, history, and the medical decision-making described in the above note were completed with the assistance of the mid-level provider. I reviewed and agree with the findings presented. I attest that I had a [id number] encounter with the patient on the same day, and personally performed and documented my assessment and findings in the medical record. Pt seen and examined in evening post chemo. Tolerated treatment well. Main complaint is hair loss. Anticipate will complete 12 week of chemo in 2 weeks time. Plan for surgery after. Herceptin/Perjeta will need to continue for 52 weeks. Will follow patient and coordinate tx after DC. Idalia Disla Aug 04, 2017 15:20 Alexa Villareal MD Aug 04, 2017 20:13
--- NOTE | 2017-08-04 16:21 | HHI.PR ---
Subjective Remarks Follow-up for multiple medical conditions [facility] assessment plan Patient has no complaints. When asked her if the cellulitis in his toes got better. She said ID no added infection. She stated that the way her feet looked is chronic and there has been no new issues. She denies any pain. Should no other complaints. Objective Vitals Vital Signs Date Time Temp Pulse Resp B/P (MAP) Pulse Ox O2 Delivery O2 Flow Rate FiO2 08/04/17 06:00 98.6 64 17 122/58 (79) 95 08/03/17 18:46 98.0 73 18 119/61 (80) 96 I/O 08/03/17 08/03/17 08/03/17 08/04/17 08/04/17 08/04/17 07:00 15:00 23:00 07:00 15:00 23:00 Intake Total 600 ml 240 ml 0 ml 360 ml Balance 600 ml 240 ml 0 ml 360 ml Intake Oral 600 ml 240 ml 0 ml 360 ml # Voids 1 1 1 Result Diagram: 08/03/17 1646 08/03/17 1646 Objective Remarks GENERAL: in NAD SKIN: desquamation of bilateral feet. HEAD: Normocephalic. EYES: No scleral icterus. No injection or drainage. NECK: Supple, trachea midline. No JVD or lymphadenopathy. CARDIOVASCULAR: Regular rate and rhythm without murmurs, gallops, or rubs. Port in place. RESPIRATORY: Breath sounds equal bilaterally. No accessory muscle use. GASTROINTESTINAL: Abdomen soft, non-tender, nondistended. MUSCULOSKELETAL: No cyanosis, or edema. BACK: Nontender without obvious deformity. No CVA tenderness. Procedures CHEMO Medications and IVs Current Medications Famotidine (Pepcid) 20 mg ONCE PO ; Start 07/11/17 at 21:15; Stop 07/11/17 at 23 :59; Status DC Haloperidol (Haldol) 7.5 mg BID PO Last administered on 07/24/17at 20:47; Start 07/12/17 at 09:00; Stop 07/25/17 at 08:58; Status DC Zolpidem Tartrate (Ambien) 5 mg HS PRN PO INSOMNIA Last administered on at 02:16; Start 07/11/17 at 21:15 Enoxaparin Sodium (Lovenox Inj) 90 mg Q12H SQ Last administered on 08/05/17at 10 :00; Start 07/11/17 at 22:00 Lorazepam (Ativan) 1 mg Q6H PRN PO MODERATE TO SEVERE ANXIETY Last administered on 07/19/17at 05:03; Start 07/11/17 at 21:15 Lorazepam (Ativan Inj) 1 mg Q6H PRN IM MODERATE TO SEVERE ANXIETY; Start at 21:15 Acetaminophen (Tylenol) 650 mg Q4H PRN PO Pain 1-5 or Temp >101F Last administered on 07/17/17at 20:42; Start 07/11/17 at 21:15 Magnesium Hydroxide (Milk Of Magnesia Liq) 30 ml DAILY PRN PO CONSTIPATION; Start 07/11/17 at 21:15 Al Hydrox/Mg Hydrox/Simethicone (Mag-Al Plus Susp Liq) 30 ml Q6H PRN PO DYSPEPSIA Last administered on 07/26/17at 21:17; Start 07/11/17 at 21:15 Nicotine (Habitrol 21 Mg Patch.24 Hr) 1 patch DAILY PRN T-DERMAL nicotine craving; Start 07/11/17 at 21:15 Benztropine Mesylate (Cogentin) 1 mg Q12H PRN PO EXTRA PYRAMIDAL SYMPTOMS; Start 07/11/17 at 21:15 Benztropine Mesylate (Cogentin Inj) 1 mg Q12H PRN IM EXTRA PYRAMIDAL SYMPTOMS; Start 07/11/17 at 21:15 Oxycodone/ Acetaminophen (Percocet 5-325 Mg) 1 tab Q6H PRN PO PAIN 6-10 Last administered on 07/14/17at 14:25; Start 07/11/17 at 21:15 Miscellaneous (Pill Splitter) 1 ea UNSCH PRN OTHER SEE LABEL COMMENTS; Start at 21:30 Potassium Chloride (KCl) 20 meq ONCE ONCE PO Last administered on 07/12/17at 12 :47; Start 07/12/17 at 12:30; Stop 07/12/17 at 12:31; Status DC Cephalexin Monohydrate (Keflex) 500 mg Q6HR PO Last administered on 07/14/17at 06 :00; Start 07/13/17 at 12:00; Stop 07/14/17 at 08:37; Status DC Paclitaxel 151 mg/ Sodium Chloride 275.1667 ml @ 275.... ONCE ONCE IV ; Start 07/14/17 at 15:30; Stop 07/14/17 at 16:29; Status Cancel Lorazepam (Ativan Inj) 0.5 mg ONCE PRN IV SEE LABEL COMMENTS; Start 07/13/17 at 16:00; Stop 07/14/17 at 23:59; Status Cancel Dexamethasone Sodium Phosphate 10 mg/Sodium Chloride 52.5 ml @ 210 mls/hr ONCE PRN IV SEE LABEL COMMENTS; Start 07/14/17 at 16:00; Stop 07/14/17 at 23:59; Status Cancel Diphenhydramine HCl (Benadryl) 25 mg ONCE PRN PO SEE LABEL COMMENTS; Start 07/14 at 15:45; Stop 07/14/17 at 23:59; Status Cancel Famotidine (Pepcid) 20 mg ONCE PRN PO SEE LABEL COMMENTS; Start 07/14/17 at 15: 45; Stop 07/14/17 at 23:59; Status Cancel Cefazolin Sodium 1000 mg/Sodium Chloride 100 ml @ 200 mls/hr Q8H IV Last administered on 07/17/17at 04:00; Start 07/14/17 at 12:00; Stop 07/17/17 at 10:57; Status DC Dexamethasone Sodium Phosphate 10 mg/Sodium Chloride 52.5 ml @ 220 mls/hr ONCE ONCE IV Last administered on 07/14/17at 15:49; Start 07/14/17 at 15:00; Stop 07/14/17 at 15:14; Status DC Diphenhydramine HCl (Benadryl) 25 mg ONCE ONCE PO Last administered on at 15:49; Start 07/14/17 at 15:00; Stop 07/14/17 at 15:01; Status DC Famotidine (Pepcid) 20 mg ONCE ONCE PO Last administered on 07/14/17at 15:49; Start 07/14/17 at 15:00; Stop 07/14/17 at 15:01; Status DC Paclitaxel 154.4 mg/Sodium Chloride 275.7333 ml @ 275.... ONCE ONCE IV Last administered on 07/14/17at 17:22; Start 07/14/17 at 16:00; Stop 07/14/17 at 16:59; Status DC Sodium Chloride 250 ml @ 0 mls/hr ONCE ONCE IV Last administered on 07/14/17at 16:00; Start 07/14/17 at 16:00; Stop 07/14/17 at 16:01; Status DC Lorazepam (Ativan Inj) 1 mg STAT STAT IV PUSH Last administered on 07/14/17 16 :00; Start 07/14/17 at 15:52; Stop 07/14/17 at 15:53; Status DC Sodium Chloride (NS Flush) 2 ml BID IV FLUSH Last administered on 08/05/17at 08: 29; Start 07/15/17 at 21:00 Cephalexin Monohydrate (Keflex) 500 mg Q6HR PO Last administered on 07/25/17at 17:11; Start 07/17/17 at 12:00; Stop 07/25/17 at 17:12; Status DC Sodium Chloride 250 ml @ 0 mls/hr ONCE ONCE IV ; Start 07/21/17 at 14:45; Stop 07/21/17 at 14:45; Status DC Lorazepam (Ativan Inj) 0.5 mg ONCE ONCE IV Last administered on 07/21/17at 15:36 ; Start 07/21/17 at 16:00; Stop 07/21/17 at 16:01; Status DC Sodium Chloride 250 ml @ 0 mls/hr ONCE ONCE IV Last administered on 07/21/17at 17:09; Start 07/21/17 at 17:00; Stop 07/21/17 at 17:01; Status DC Dexamethasone Sodium Phosphate 10 mg/Sodium Chloride 52.5 ml @ 210 mls/hr ONCE ONCE IV Last administered on 07/21/17at 15:42; Start 07/21/17 at 16:00; Stop 07/21/17 at 16:14; Status DC Diphenhydramine HCl (Benadryl) 25 mg ONCE ONCE PO Last administered on at 15:36; Start 07/21/17 at 16:00; Stop 07/21/17 at 16:01; Status DC Paclitaxel 156.8 mg/Sodium Chloride 276.1333 ml @ 276.... ONCE ONCE IV Last administered on 07/21/17 17:09; Start 07/21/17 at 17:00; Stop 07/21/17 at 17:59; Status DC Famotidine (Pepcid) 20 mg ONCE ONCE PO Last administered on 07/21/17at 15:36; Start 07/21/17 at 16:00; Stop 07/21/17 at 16:01; Status DC Heparin Sodium (Porcine) (Heparin Central Flush) 400 units ONCE ONCE IV FLUSH Last administered on 07/23/17at 13:04; Start 07/23/17 at 12:30; Stop 07/23/17 at 12:31; Status DC Haloperidol (Haldol) 10 mg BID PO Last administered on 08/05/17at 08:29; Start 07/25/17 at 10:30 Bacitracin (Baciguent Oint) 1 applic Q12HR TOPICAL Last administered on at 08:29; Start 07/26/17 at 21:00 Sodium Chloride 250 ml @ 30 mls/hr ONCE ONCE IV ; Start 07/28/17 at 14:00; Stop 07/28/17 at 22:19; Status Cancel Dexamethasone Sodium Phosphate 20 mg/Sodium Chloride 55 ml @ 220 mls/hr ONCE ONCE IV ; Start 07/28/17 at 13:00; Stop 07/28/17 at 13:14; Status Cancel Diphenhydramine HCl (Benadryl) 25 mg ONCE ONCE PO ; Start 07/28/17 at 13:00; Stop 07/28/17 at 13:01; Status Cancel Famotidine (Pepcid) 20 mg ONCE ONCE PO ; Start 07/28/17 at 13:00; Stop at 13:01; Status Cancel Paclitaxel 156 mg/ Sodium Chloride 526 ml @ 263 mls/hr ONCE ONCE IV ; Start at 14:00; Stop 07/28/17 at 15:59; Status Cancel Sodium Chloride 250 ml @ 30 mls/hr ONCE ONCE IV ; Start 07/28/17 at 16:00; Stop 07/29/17 at 00:19; Status Cancel Lorazepam (Ativan Inj) 0.5 mg ONCE ONCE IV ; Start 07/28/17 at 15:30; Stop at 15:31; Status Cancel Pertuzumab 420 mg/ Sodium Chloride 264 ml @ 528 mls/hr ONCE ONCE IV ; Start at 16:00; Stop 07/28/17 at 16:29; Status Cancel Trastuzumab 510 mg/Sodium Chloride 250 ml @ 166.667 mls/hr ONCE ONCE IV ; Start 07/28/17 at 17:00; Stop 07/28/17 at 18:29; Status Cancel Sodium Chloride 250 ml @ 30 mls/hr ONCE ONCE IV ; Start 07/28/17 at 17:00; Stop 07/29/17 at 01:19; Status Cancel Sodium Chloride 250 ml @ 30 mls/hr ONCE ONCE IV ; Start 07/28/17 at 14:00; Stop 07/28/17 at 22:19; Status Cancel Lorazepam (Ativan Inj) 0.5 mg ONCE ONCE IV ; Start 07/28/17 at 13:30; Stop at 13:31; Status Cancel Pertuzumab 420 mg/ Sodium Chloride 264 ml @ 528 mls/hr ONCE ONCE IV ; Start at 14:00; Stop 07/28/17 at 14:29; Status Cancel Trastuzumab 510 mg/Sodium Chloride 250 ml @ 166.667 mls/hr ONCE ONCE IV Last administered on 07/28/17at 15:24; Start 07/28/17 at 14:00; Stop 07/28/17 at 15:29 ; Status DC Sodium Chloride 250 ml @ 30 mls/hr ONCE ONCE IV Last administered on at 15:26; Start 07/28/17 at 14:00; Stop 07/28/17 at 22:19; Status DC Sodium Chloride 250 ml @ 30 mls/hr ONCE ONCE IV Last administered on at 18:06; Start 07/28/17 at 16:00; Stop 07/29/17 at 00:19; Status DC Lorazepam (Ativan Inj) 0.5 mg ONCE ONCE IV ; Start 07/28/17 at 15:30; Stop at 15:31; Status DC Pertuzumab 420 mg/ Sodium Chloride 264 ml @ 264 mls/hr ONCE ONCE IV Last administered on 07/28/17at 18:03; Start 07/28/17 at 16:00; Stop 07/28/17 at 16:59 ; Status DC Sodium Chloride 250 ml @ 30 mls/hr ONCE ONCE IV Last administered on at 20:15; Start 07/28/17 at 18:00; Stop 07/29/17 at 02:19; Status DC Dexamethasone Sodium Phosphate 20 mg/Sodium Chloride 55 ml @ 220 mls/hr ONCE ONCE IV Last administered on 07/28/17at 20:08; Start 07/28/17 at 17:00; Stop at 17:14; Status DC Diphenhydramine HCl (Benadryl) 25 mg ONCE ONCE PO Last administered on at 20:08; Start 07/28/17 at 17:00; Stop 07/28/17 at 17:01; Status DC Famotidine (Pepcid) 20 mg ONCE ONCE PO Last administered on 07/28/17at 20:08; Start 07/28/17 at 17:00; Stop 07/28/17 at 17:01; Status DC Paclitaxel 156 mg/ Sodium Chloride 276 ml @ 138 mls/hr ONCE ONCE IV Last administered on 07/28/17at 21:31; Start 07/28/17 at 18:00; Stop 07/28/17 at 19:59 ; Status DC Acetaminophen (Tylenol) 650 mg ONCE ONCE PO Last administered on 07/28/17at 14: 02; Start 07/28/17 at 13:30; Stop 07/28/17 at 13:31; Status DC Diphenhydramine HCl (Benadryl) 25 mg ONCE ONCE PO Last administered on at 14:02; Start 07/28/17 at 13:30; Stop 07/28/17 at 13:31; Status DC Granisetron HCl (Kytril Inj) 1 mg ONCE ONCE IV PUSH Last administered on at 20:08; Start 07/28/17 at 17:30; Stop 07/28/17 at 17:31; Status DC Heparin Sodium (Porcine) (Heparin Central Flush) 250 units UNSCH PRN IV FLUSH SEE PROTOCOL TABLE; Start 07/28/17 at 23:45 Heparin Sodium (Porcine) (Heparin Central Flush) 500 units UNSCH IV FLUSH Last administered on 08/05/17at 08:29; Start 07/28/17 at 23:45 Sodium Chloride (NS Flush) 5 ml UNSCH PRN IV FLUSH SEE LABEL COMMENTS; Start at 23:45 Paclitaxel 156 mg/ Sodium Chloride 276 ml @ 276 mls/hr ONCE ONCE IV Last administered on 08/04/17at 17:41; Start 08/04/17 at 18:00; Stop 08/04/17 at 18:59 ; Status DC Sodium Chloride 250 ml @ 30 mls/hr ONCE ONCE IV Last administered on at 17:43; Start 08/04/17 at 18:00; Stop 08/05/17 at 02:19; Status DC Dexamethasone Sodium Phosphate 10 mg/Sodium Chloride 52.5 ml @ 210 mls/hr ONCE ONCE IV Last administered on 08/04/17at 16:31; Start 08/04/17 at 17:00; Stop 08/04/17 at 17:14; Status DC Diphenhydramine HCl (Benadryl) 25 mg ONCE ONCE PO Last administered on at 16:31; Start 08/04/17 at 17:00; Stop 08/04/17 at 17:01; Status DC Famotidine (Pepcid) 20 mg ONCE ONCE PO Last administered on 08/04/17at 16:31; Start 08/04/17 at 17:00; Stop 08/04/17 at 17:01; Status DC Potassium Chloride (KCl) 20 meq ONCE ONCE PO Last administered on 08/04/17at 17 :06; Start 08/04/17 at 17:00; Stop 08/04/17 at 17:01; Status DC Miscellaneous Information 1 HS T-DERMAL ; Start 08/04/17 at 21:00 A/P Problem List: (1) HER2-positive carcinoma of right breast ICD Code: C50.911 - Malignant neoplasm of unspecified site of right female breast (2) Deep venous thrombosis of left upper extremity ICD Code: I82.622 - Acute embolism and thrombosis of deep veins of left upper extremity (3) Psychosis not due to substance or known physiological condition ICD Code: F29 - Unspecified psychosis not due to a substance or known physiological condition Assessment and Plan 52 years old female Schizophrenia - per psychiatry. LUE DVT - on lovenox therapeutic dose. Hematology ff. - if no improvement of LUE by US on LMWH, Dr Sewell planned to remove port (likely in 6 weeks when chemo finish). Left 2nd toe and right big toe cellulitis -No cellulitis noted on exam. -, was on cefazolin 07/14, switched to keflex 07/19. - will need OP Podiatry ff up- will give total 10 days of antibiotics HER 2 shirley positive R breast CA- on chemo- last dose 07/14/17 - planned taxol every week with Dr Villareal. - ongoing Superficial excoriations/ wounds on left upper arm -improved - continue Bacitracin bid hypokalemia - resolved GI prophylaxis- on lovenox Patient also up and ambulating Pura Arellano MD Aug 04, 2017 16:21 Francoise Thorne MD Aug 05, 2017 10:59
[2017-08-04] MEDS ORDERED: FAMOTIDINE 20 MG TAB PO ONE (17:00)
[2017-08-04] MEDS ORDERED: DEXAMETHASONE INJ 10 MG in SODIUM CHLORIDE 0.9% INJ 50 ML IV ONE (17:00)
[2017-08-04] MEDS ORDERED: diphenhydrAMINE HCL 25 MG CAP PO ONE (17:00)
[2017-08-04] MEDS ORDERED: POTASSIUM CHLORIDE 20 MEQ CONTROLLED RELEASE TAB PO ONE (17:00)
[2017-08-04] MEDS ORDERED: PACLITAXEL IV ONE (18:00)
[2017-08-04] MEDS ORDERED: SODIUM CHLOR 0.9% IV ONE (18:00)
[2017-08-04] MEDS ORDERED: SODIUM CHLOR 0.9% 250 ML INJ 250 ML IV ONE (18:00)
[2017-08-04 18:15] VITALS: BP 139/81; PULSE 78; RESP 20; TEMP 99.3; O2SAT 96
[2017-08-04] MEDS: REMOVE OLD NICODERM (NICOTINE) PATCH T-DERMAL SCH (20:48)
[2017-08-05] MEDS: ZOLPIDEM TARTRATE 5 MG TAB PO PRN ×2 (02:16→20:25)
[2017-08-05 06:34] VITALS: BP 124/66; PULSE 73; RESP 17; TEMP 99; O2SAT 97
[2017-08-05] MEDS: SODIUM CHLORIDE 0.9% FLUSH 10 ML FLUSH IV FLUSH SCH ×2 (08:29→19:39)
[2017-08-05] MEDS: HALOPERIDOL 5 MG TAB PO SCH ×2 (08:29→20:25)
[2017-08-05] MEDS: BACITRACIN TOP OINT 15 GM TUBE TOPICAL SCH ×2 (08:29→20:25)
[2017-08-05] MEDS: ENOXAPARIN SODIUM 100 MG/ML SYRINGE SQ SCH ×2 (10:00→21:17)
--- NOTE | 2017-08-05 11:00 | HHI.PR ---
Subjective Remarks Follow-up for multiple medical condition was assessment plan Patient had no complaints. When asked if her feet look better she stated that she did not know she had any issues. She stated that her feet had always look like that for many years. She denies any pain. She had no other complaints. Objective Vitals Vital Signs Date Time Temp Pulse Resp B/P (MAP) Pulse Ox O2 Delivery O2 Flow Rate FiO2 08/05/17 06:34 99.0 73 17 124/66 (85) 97 08/04/17 18:15 99.3 78 20 139/81 (100) 96 08/04/17 13:00 98.5 87 20 115/73 (87) 97 I/O 08/04/17 08/04/17 08/04/17 08/05/17 08/05/17 08/05/17 07:00 15:00 23:00 07:00 15:00 23:00 Intake Total 0 ml 360 ml 555 ml Balance 0 ml 360 ml 555 ml Intake Oral 0 ml 360 ml 500 ml IV Total 55 ml # Voids 1 Result Diagram: 08/03/17 1646 08/03/17 1646 Objective Remarks GENERAL: in NAD SKIN: desquamation of bilateral feet. HEAD: Normocephalic. EYES: No scleral icterus. No injection or drainage. NECK: Supple, trachea midline. No JVD or lymphadenopathy. CARDIOVASCULAR: Regular rate and rhythm without murmurs, gallops, or rubs. Port in place. RESPIRATORY: Breath sounds equal bilaterally. No accessory muscle use. GASTROINTESTINAL: Abdomen soft, non-tender, nondistended. MUSCULOSKELETAL: No cyanosis, or edema. BACK: Nontender without obvious deformity. No CVA tenderness. Procedures CHEMO A/P Problem List: (1) HER2-positive carcinoma of right breast ICD Code: C50.911 - Malignant neoplasm of unspecified site of right female breast (2) Deep venous thrombosis of left upper extremity ICD Code: I82.622 - Acute embolism and thrombosis of deep veins of left upper extremity (3) Psychosis not due to substance or known physiological condition ICD Code: F29 - Unspecified psychosis not due to a substance or known physiological condition Assessment and Plan 52 years old female Schizophrenia - per psychiatry. LUE DVT - on lovenox therapeutic dose. Hematology ff. - if no improvement of LUE by US on LMWH, Dr Sewell planned to remove port (likely in 6 weeks when chemo finish). Left 2nd toe and right big toe cellulitis -No cellulitis noted on exam. -, was on cefazolin 07/14, switched to keflex 07/19. - will need OP Podiatry ff up- will give total 10 days of antibiotics HER 2 shirley positive R breast CA- on chemo- last dose 07/14/17 - planned taxol every week with Dr Villareal. - ongoing Superficial excoriations/ wounds on left upper arm -improved - continue Bacitracin bid hypokalemia - resolved GI prophylaxis- on lovenox Patient also up and ambulating Francoise Thorne MD Aug 05, 2017 11:00
--- NOTE | 2017-08-05 16:44 | HHI.PYPN ---
Subjective Remarks Patient seen and examined with nurse in weekend coverage for Dr. Enamorado. Chart reviewed. Case discussed with nursing staff. On my examination today, the patient reports that she feels quite comfortable on the unit. No SI or HI. No paranoia. She does note almost offhandedly that she has not had her menses in some time and wonders if she might be . I suspect this is a delusional concern of hers. No side effects from medications. No physical complaints. Review of Systems ROS Limitations: Psychotic, Poor Historian Except as stated in HPI: all other systems reviewed are Neg Mental Status Examination Appearance: Appropriate Consciousness: Alert Orientation: Person, Place, Date/Time Motor Activity: Other (no motor abnormalities noted) Speech: Unremarkable Language: Adequate Fund of Knowledge: Inadequate Attention and Concentration: Adequate Memory: Impaired Mood: Appropriate Affect: Appropriate Thought Process & Associations: Other ([place]) Thought Content: Bizarre thinking, Delusional Hallucination Type: None Delusion Type: Other (possible delusion of ) Suicidal Ideation: No (no SI voiced) Homicidal Ideation: No (No HI voiced) Insight: Poor Judgment: Poor Results Labs Labs reviewed. Vitals/IOs Vital Signs Date Time Temp Pulse Resp B/P (MAP) Pulse Ox O2 Delivery O2 Flow Rate FiO2 08/05/17 06:34 99.0 73 17 124/66 (85) 97 Assessment & Plan Problem List: (1) Psychosis not due to substance or known physiological condition ICD Codes: F29 - Unspecified psychosis not due to a substance or known physiological condition Assessment & Plan Continue current psychotropics as ordered. Check a beta hCG out of an abundance of caution. Continue other medications and care as ordered. Continue to monitor on the inpatient unit. Justification for Cont. Inpt. Risk for decompensation in less restrictive environment. Discharge Planning Per Fabrice Smith MD Aug 05, 2017 16:44
[2017-08-05 17:00] VITALS: BP 115/68; PULSE 58; RESP 18; TEMP 98.4; O2SAT 98
[2017-08-05 18:10] LABS: ALBUMIN 3.3 GM/DL (3.4-5.0); ALT (GPT) 64 U/L (10-53); AST (GOT) 28 U/L (15-37); BICARBONATE 26.1 MEQ/L (21.0-32.0); BLOOD UREA NITROGEN 12 MG/DL (7-18); CALCIUM 8.8 MG/DL (8.5-10.1); CHLORIDE 105 MEQ/L (98-107); CREATININE 0.58 MG/DL (0.50-1.00); GLOMERULAR FILTRATION RATE 110 ML/MIN (>89); GLUCOSE,RANDOM 120 MG/DL (74-106); SODIUM (NA) 140 MEQ/L (136-145)
[2017-08-05 18:14] LABS: ALKALINE PHOSPHATASE 67 U/L (45-117); TOTAL BILIRUBIN ADULT 0.5 MG/DL (0.2-1.0)
[2017-08-05] MEDS: REMOVE OLD NICODERM (NICOTINE) PATCH T-DERMAL SCH (19:39)
[2017-08-06 06:00] VITALS: BP 117/81; PULSE 58; RESP 16; TEMP 97.8; O2SAT 99
[2017-08-06] MEDS: HALOPERIDOL 5 MG TAB PO SCH ×2 (08:12→20:49)
[2017-08-06] MEDS: SODIUM CHLORIDE 0.9% FLUSH 10 ML FLUSH IV FLUSH SCH ×2 (08:12→20:52)
[2017-08-06] MEDS: BACITRACIN TOP OINT 15 GM TUBE TOPICAL SCH ×2 (08:12→20:49)
--- NOTE | 2017-08-06 08:51 | HHI.PR ---
Subjective Remarks Patient is in bed appears in nad. No chest pain or shortness of breath. No nausea or vomiting no diarrhea constipation. Appetite is fairly well. Objective Vitals Vital Signs Date Time Temp Pulse Resp B/P (MAP) Pulse Ox O2 Delivery O2 Flow Rate FiO2 08/06/17 06:00 97.8 58 16 117/81 (93) 99 08/05/17 17:00 98.4 58 18 115/68 (84) 98 I/O 08/05/17 08/05/17 08/05/17 08/06/17 08/06/17 08/06/17 07:00 15:00 23:00 07:00 15:00 23:00 Intake Total 1920 ml 480 ml Balance 1920 ml 480 ml Intake Oral 1920 ml 480 ml # Voids 3 1 Result Diagram: 08/03/17 1646 08/05/17 1627 Imaging Last Impressions Toe X-Ray 07/14/17 0000 Signed Impressions: Service Date/Time: Friday, July 14, 2017 10:34 - CONCLUSION: 1. Small exostosis of the toe. 2. No acute fracture or dislocation. Lj Clark MD Upper Extremity Ultrasound 07/13/17 0000 Signed Impressions: Service Date/Time: July 09:19 - CONCLUSION: Interval decrease in the size of the enlarged axillary lymph node. Jayden Brunner MD Objective Remarks GENERAL: The patient is a 52-year-old male, in NAD SKIN: desquamation of bilateral feet. HEAD: Normocephalic. EYES: No scleral icterus. No injection or drainage. CARDIOVASCULAR: Regular rate and rhythm without murmurs, gallops, or rubs. Port in place. RESPIRATORY: Breath sounds equal bilaterally. No accessory muscle use. GASTROINTESTINAL: Abdomen soft, non-tender, nondistended. MUSCULOSKELETAL: No cyanosis, or edema. BACK: Nontender without obvious deformity. Procedures CHEMO A/P Problem List: (1) HER2-positive carcinoma of right breast ICD Code: C50.911 - Malignant neoplasm of unspecified site of right female breast (2) Deep venous thrombosis of left upper extremity ICD Code: I82.622 - Acute embolism and thrombosis of deep veins of left upper extremity (3) Psychosis not due to substance or known physiological condition ICD Code: F29 - Unspecified psychosis not due to a substance or known physiological condition Assessment and Plan 52 years old female Schizophrenia - per psychiatry. LUE DVT - on lovenox therapeutic dose. Hematology ff. - if no improvement of LUE by US on LMWH, Dr Sewell planned to remove port (likely in 6 weeks when chemo finish). Left 2nd toe and right big toe cellulitis -No cellulitis noted on exam. -, was on cefazolin 07/14, switched to keflex 07/19. - will need OP Podiatry ff up- will give total 10 days of antibiotics HER 2 shirley positive R breast CA- on chemo- last dose 07/14/17 - planned taxol every week with Dr Villareal. - ongoing Superficial excoriations/ wounds on left upper arm -improved - continue Bacitracin bid hypokalemia - resolved GI prophylaxis- on lovenox DVT prophylaxis patient ambulating Prabha Bates MD Aug 06, 2017 08:51
[2017-08-06] MEDS: ENOXAPARIN SODIUM 100 MG/ML SYRINGE SQ SCH ×2 (10:08→20:53)
--- NOTE | 2017-08-06 16:33 | HHI.PYPN ---
Subjective Remarks Patient seen and examined with nurse in coverage for Dr. Enamorado. Chart reviewed. Case discussed with nursing staff. On my examination today, the patient seems a little more dysphoric. She says that she is upset because she doesn't want to be in the hospital any longer. She says that she believes that she never had breast cancer, although she does say that she will continue to accept treatment for this issue. No side effects from medications. No physical complaints. Review of Systems ROS Limitations: Psychotic, Poor Historian Except as stated in HPI: all other systems reviewed are Neg Mental Status Examination Appearance: Appropriate Consciousness: Alert Orientation: Person, Place, Date/Time Motor Activity: Other (no abnormal motor movements noted) Speech: Unremarkable Language: Adequate Fund of Knowledge: Inadequate Attention and Concentration: Adequate Memory: Impaired Mood: Appropriate Affect: Appropriate Thought Process & Associations: Other ([place]) Thought Content: Bizarre thinking, Delusional Hallucination Type: None Delusion Type: Somatic Suicidal Ideation: No (no SI voiced) Homicidal Ideation: No (No HI voiced) Insight: Poor Judgment: Poor Results Labs Beta hCG negative. Labs reviewed. Vitals/IOs Vital Signs Date Time Temp Pulse Resp B/P (MAP) Pulse Ox O2 Delivery O2 Flow Rate FiO2 08/06/17 06:00 97.8 58 16 117/81 (93) 99 Intake and Output 08/06/17 08/06/17 08/07/17 08:00 16:00 00:00 Intake Total 240 ml 480 ml Balance 240 ml 480 ml Assessment & Plan Problem List: (1) Psychosis not due to substance or known physiological condition ICD Codes: F29 - Unspecified psychosis not due to a substance or known physiological condition Assessment & Plan Continue Haldol and other psychotropics as ordered. To consider further titration of the Haldol to target patient's ongoing psychotic symptoms, but I see that the patient has been on stable doses for some time. Continue to monitor on the inpatient unit. Continue other medications and care as ordered. Justification for Cont. Inpt. Risk for decompensation in less restrictive environment. Impairment in reality construction. Discharge Planning Per Fabrice Smith MD Aug 06, 2017 16:33
[2017-08-06 18:05] VITALS: BP 117/75; PULSE 71; RESP 16; TEMP 98.3; O2SAT 98
[2017-08-06] MEDS: ZOLPIDEM TARTRATE 5 MG TAB PO PRN (20:49)
[2017-08-06] MEDS: REMOVE OLD NICODERM (NICOTINE) PATCH T-DERMAL SCH (20:53)
[2017-08-07 06:17] VITALS: BP 109/55; PULSE 68; RESP 15; TEMP 97.6
[2017-08-07] MEDS: SODIUM CHLORIDE 0.9% FLUSH 10 ML FLUSH IV FLUSH SCH ×2 (10:08→20:26)
[2017-08-07] MEDS: ENOXAPARIN SODIUM 100 MG/ML SYRINGE SQ SCH ×2 (10:08→20:26)
[2017-08-07] MEDS: HALOPERIDOL 5 MG TAB PO SCH ×2 (10:08→20:24)
[2017-08-07] MEDS: BACITRACIN TOP OINT 15 GM TUBE TOPICAL SCH ×2 (10:12→20:24)
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
--- NOTE | 2017-08-07 14:59 | HHI.PR ---
Subjective Remarks Resting in bed comfortably No chest pain or short of breath Objective Vitals Vital Signs Date Time Temp Pulse Resp B/P (MAP) Pulse Ox O2 Delivery O2 Flow Rate FiO2 08/07/17 06:17 97.6 68 15 109/55 (73) 08/06/17 18:05 98.3 71 16 117/75 (89) 98 I/O 08/06/17 08/06/17 08/06/17 08/07/17 08/07/17 08/07/17 07:00 15:00 23:00 07:00 15:00 23:00 Intake Total 720 ml 960 ml 480 ml 960 ml Balance 720 ml 960 ml 480 ml 960 ml Intake Oral 720 ml 960 ml 480 ml 960 ml # Voids 1 1 2 Result Diagram: 08/03/17 1646 08/05/17 1627 Objective Remarks GENERAL: This is a well-nourished, well-developed patient, in no apparent distress.ut bleeding, or drainage, Airway patent. NECK: Trachea midline. Supple CARDIOVASCULAR: Regular rate and rhythm without murmurs, gallops, or rubs. RESPIRATORY: Fair air entry bilaterally. No wheezes, rales, or rhonchi. GASTROINTESTINAL: Abdomen soft, non-tender, nondistended. Positive bowel sounds MUSCULOSKELETAL: Extremities without clubbing, cyanosis, or edema. Pedal pulses appreciated NEUROLOGICAL: Awake and alert. Moves all extremity. Normal speech.no focal neurological deficit Procedures CHEMO A/P Problem List: (1) HER2-positive carcinoma of right breast ICD Code: C50.911 - Malignant neoplasm of unspecified site of right female breast (2) Deep venous thrombosis of left upper extremity ICD Code: I82.622 - Acute embolism and thrombosis of deep veins of left upper extremity (3) Psychosis not due to substance or known physiological condition ICD Code: F29 - Unspecified psychosis not due to a substance or known physiological condition Assessment and Plan 52 years old female Schizophrenia - per psychiatry. LUE DVT - on lovenox therapeutic dose. Hematology ff. - if no improvement of LUE by US on LMWH, Dr Sewell planned to remove port (likely in 6 weeks when chemo finish). Left 2nd toe and right big toe cellulitis -No cellulitis noted on exam. -, was on cefazolin 07/14, switched to keflex 07/19. - will need OP Podiatry ff up- will give total 10 days of antibiotics HER 2 shirley positive R breast CA- on chemo- last dose 07/14/17 - planned taxol every week with Dr Villareal. - ongoing Superficial excoriations/ wounds on left upper arm -improved - continue Bacitracin bid hypokalemia - resolved , BMP in a.m. GI prophylaxis- on lovenox DVT prophylaxis patient ambulating Chetan Flood MD Aug 07, 2017 14:59
--- NOTE | 2017-08-07 16:30 | PD.TTN ---
Patient Problems 1. Discharge planning 2. Medication compliance 3. Knowledge deficit 4. Lack of coping skills Progress Toward Goals Provider Present: Dr. Alex Enamorado Provider Input: 08/07/2017; patient is a state wait or will require a structure discharge environment 07/24/2017; per Dr. Enamorado, patient continues to display inappropriate behavior, requesting redirection with thoughts/mood. 07/19/17 remains in need for stabilization and is lacking insight and remains at high risk for decompensation 07/17/17 patient is receiving chemo and presenting different than last hospitalization which she was manic, now she is withdrawn and limited in talking and interacting 07/14/17 patient came from independent living at [facility] and appears not being able to return there - she can benefit from an FIFI placement Nurse(s) Present: ARIEL Flower Nurse(s) Input: Patient is eating and very redirectable Psychiatric Counselors Present: Amanda Silva LCSW, [place] Psych Therapist Input: 08/07/2017; patient is encouraged with meals, mood and medication 07/24/2017; patient is encouraged with mood, meals and medication compliance 07/19/17 still erratic, mood unstable, disorganized thoughts continue , needs at least FIFI if not more care 07/17/17 will work on SNF facilities and refer patient today, she remains uncooperative with this therapist 07/14/17 patient refused to talk to this counselor twice yesterday, pretending to sleep she is reported by nurses to remain in bed without interacting and irritable Group Spec/RT/OT/DONATO Present: Onle Devi OT Group Spec/RT/OT/DONATO Input: 08/07/2017; patient is unable to participate with groups or activities 07/24/2017; patient continues to be unable to participate with groups and activities 07/19/17 cannot tolerate groups and non reality based thoughts 07/17/17 does not attend group and does not tolerate 07/14/17 patient does not attend groups and does not tolerate groups Documentation Scribe: Fernanda Dupree [facility] Aug 07, 2017 16:30
[2017-08-07 18:00] VITALS: BP 100/66; PULSE 71; RESP 15; TEMP 97.4; O2SAT 98
[2017-08-07] MEDS: ZOLPIDEM TARTRATE 5 MG TAB PO PRN (20:23)
[2017-08-07] MEDS: REMOVE OLD NICODERM (NICOTINE) PATCH T-DERMAL SCH (20:26)
[2017-08-08 04:58] VITALS: BP 102/51; PULSE 71; RESP 16; TEMP 97.5
[2017-08-08 08:16] LABS: BICARBONATE 30.1 MEQ/L (21.0-32.0); CALCIUM 9.1 MG/DL (8.5-10.1); CREATININE 0.57 MG/DL (0.50-1.00)
[2017-08-08] MEDS: SODIUM CHLORIDE 0.9% FLUSH 10 ML FLUSH IV FLUSH SCH ×2 (08:58→20:25)
[2017-08-08] MEDS: HALOPERIDOL 5 MG TAB PO SCH ×2 (09:00→20:24)
[2017-08-08] MEDS: BACITRACIN TOP OINT 15 GM TUBE TOPICAL SCH ×2 (09:01→20:25)
[2017-08-08] MEDS: ENOXAPARIN SODIUM 100 MG/ML SYRINGE SQ SCH ×2 (09:01→20:25)
--- NOTE | 2017-08-08 10:55 | HHI.PYPN ---
Subjective Remarks Patient seen for follow-up, chart reviewed. Discussion nursing staff reported the patient slept well with no behavioral changes. Patient found lying hospital but states feeling "good" denies any physical complaints at this time no delusional material elicited this morning, no perceptual disturbances. Patient denies any difficult to eating and drinking or bowel movement. Patient continues to be noted to have occasional perseveration on delusions. Review of Systems Except as stated in HPI: all other systems reviewed are Neg Mental Status Examination Appearance: Disheveled Consciousness: Alert Orientation: Person, Place, Date/Time Motor Activity: Other (no abnormal motor movements noted) Speech: Unremarkable Language: Adequate Fund of Knowledge: Inadequate Attention and Concentration: Adequate Memory: Impaired Mood: Appropriate Affect: Appropriate Thought Process & Associations: Other ([place]) Thought Content: Bizarre thinking, Delusional Hallucination Type: None Delusion Type: Somatic Suicidal Ideation: No Suicidal Plan: No Suicidal Intention: No Homicidal Ideation: No Homicidal Plan: No Homicidal Intention: No Insight: Poor Judgment: Poor Results Labs Labs reviewed Test 08/08/17 07:08 Blood Urea Nitrogen 11 MG/DL Creatinine 0.57 MG/DL Random Glucose 92 MG/DL Calcium Level 9.1 MG/DL Sodium Level 140 MEQ/L Potassium Level 4.8 MEQ/L Chloride Level 104 MEQ/L Carbon Dioxide Level 30.1 MEQ/L Anion Gap 6 MEQ/L Estimat Glomerular Filtration Rate 112 ML/MIN Vitals/IOs Vital Signs Date Time Temp Pulse Resp B/P (MAP) Pulse Ox O2 Delivery O2 Flow Rate FiO2 08/08/17 04:58 97.5 71 16 102/51 (68) 08/07/17 18:00 98 Intake and Output 08/08/17 08/08/17 08/08/17 07:59 15:59 23:59 Intake Total 240 ml 480 ml Balance 240 ml 480 ml Assessment & Plan Problem List: (1) Psychosis not due to substance or known physiological condition ICD Codes: F29 - Unspecified psychosis not due to a substance or known physiological condition Assessment & Plan Patient continues to have some bizarre delusions which patient will express at times but lessening. Patient also continues with limited insight into her current medical issues but has been compliant with treatment. Continue current treatment. Continue recommendations as per prior medical team. Upon completion of chemotherapy patient has planned surgery with reconstruction. Discharge planning in progress. Justification for Cont. Inpt. At risk for further decompensation if at lower level of care Discharge Planning To be determined Yadiel Enamorado MD Aug 08, 2017 10:55
--- NOTE | 2017-08-08 15:19 | HHI.PR ---
Subjective Remarks NO NEW COMPLAINTS LYING IN BED COMFORTABLY DW RN AND PT Objective Vitals Vital Signs Date Time Temp Pulse Resp B/P (MAP) Pulse Ox O2 Delivery O2 Flow Rate FiO2 08/08/17 04:58 97.5 71 16 102/51 (68) 08/07/17 18:00 97.4 71 15 100/66 (77) 98 I/O 08/07/17 08/07/17 08/07/17 08/08/17 08/08/17 08/08/17 07:00 15:00 23:00 07:00 15:00 23:00 Intake Total 480 ml 1920 ml 3120 ml 240 ml 720 ml Balance 480 ml 1920 ml 3120 ml 240 ml 720 ml Intake Oral 480 ml 1920 ml 3120 ml 240 ml 720 ml # Voids 2 2 1 Result Diagram: 08/08/17 0708 Other Results Laboratory Tests Test 08/05/17 16:27 08/08/17 07:08 Blood Urea Nitrogen 12 MG/DL 11 MG/DL Creatinine 0.58 MG/DL 0.57 MG/DL Random Glucose 120 MG/DL 92 MG/DL Total Protein 7.0 GM/DL Albumin 3.3 GM/DL Calcium Level 8.8 MG/DL 9.1 MG/DL Alkaline Phosphatase 67 U/L Aspartate Amino Transf (AST/SGOT) 28 U/L Alanine Aminotransferase (ALT/SGPT) 64 U/L Total Bilirubin 0.5 MG/DL Sodium Level 140 MEQ/L 140 MEQ/L Potassium Level 3.3 MEQ/L 4.8 MEQ/L Chloride Level 105 MEQ/L 104 MEQ/L Carbon Dioxide Level 26.1 MEQ/L 30.1 MEQ/L Anion Gap 9 MEQ/L 6 MEQ/L Estimat Glomerular Filtration Rate 110 ML/MIN 112 ML/MIN Beta HCG, Qualitative 2 MIU/ML Imaging Last Impressions Toe X-Ray 07/14/17 0000 Signed Impressions: Service Date/Time: Friday, July 14, 2017 10:34 - CONCLUSION: 1. Small exostosis of the toe. 2. No acute fracture or dislocation. Lj Clark MD Upper Extremity Ultrasound 07/13/17 0000 Signed Impressions: Service Date/Time: July 09:19 - CONCLUSION: Interval decrease in the size of the enlarged axillary lymph node. Jayden Brunner MD Objective Remarks GENERAL: Awake, alert, pleasant, in NAD. SKIN: Warm and dry. LUE with scattered open areas that are dry, with no redness or warmth noted, open to air. IMPROVED HEAD: Normocephalic. EYES: No scleral icterus. No injection or drainage. NECK: Supple, trachea midline. No JVD or lymphadenopathy. CARDIOVASCULAR: Regular rate and rhythm without murmurs, gallops, or rubs. S1, S2 NO S3 OR S4 RESPIRATORY: Breath sounds equal bilaterally. No accessory muscle use. GASTROINTESTINAL: Abdomen soft, non-tender, nondistended. Normoactive bowel sounds in all quadrants. MUSCULOSKELETAL: No cyanosis, or edema. Moves all extremities, ambulating without difficulties or assistive devices. NEUROLOGIC: Awake and alert, moving all extremities with no noted weakness. Speech is clear, hard of hearing, no facial droop noted. Insight and judgment is good Mood and behavior somewhat appropriate Procedures CHEMO Medications and IVs Current Medications Famotidine (Pepcid) 20 mg ONCE PO ; Start 07/11/17 at 21:15; Stop 07/11/17 at 23 :59; Status DC Haloperidol (Haldol) 7.5 mg BID PO Last administered on 07/24/17at 20:47; Start 07/12/17 at 09:00; Stop 07/25/17 at 08:58; Status DC Zolpidem Tartrate (Ambien) 5 mg HS PRN PO INSOMNIA Last administered on at 20:23; Start 07/11/17 at 21:15 Enoxaparin Sodium (Lovenox Inj) 90 mg Q12H SQ Last administered on 08/08/17at 09 :01; Start 07/11/17 at 22:00 Lorazepam (Ativan) 1 mg Q6H PRN PO MODERATE TO SEVERE ANXIETY Last administered on 07/19/17at 05:03; Start 07/11/17 at 21:15 Lorazepam (Ativan Inj) 1 mg Q6H PRN IM MODERATE TO SEVERE ANXIETY; Start at 21:15 Acetaminophen (Tylenol) 650 mg Q4H PRN PO Pain 1-5 or Temp >101F Last administered on 07/17/17at 20:42; Start 07/11/17 at 21:15 Magnesium Hydroxide (Milk Of Magnesia Liq) 30 ml DAILY PRN PO CONSTIPATION; Start 07/11/17 at 21:15 Al Hydrox/Mg Hydrox/Simethicone (Mag-Al Plus Susp Liq) 30 ml Q6H PRN PO DYSPEPSIA Last administered on 07/26/17at 21:17; Start 07/11/17 at 21:15 Nicotine (Habitrol 21 Mg Patch.24 Hr) 1 patch DAILY PRN T-DERMAL nicotine craving; Start 07/11/17 at 21:15 Benztropine Mesylate (Cogentin) 1 mg Q12H PRN PO EXTRA PYRAMIDAL SYMPTOMS; Start 07/11/17 at 21:15 Benztropine Mesylate (Cogentin Inj) 1 mg Q12H PRN IM EXTRA PYRAMIDAL SYMPTOMS; Start 07/11/17 at 21:15 Oxycodone/ Acetaminophen (Percocet 5-325 Mg) 1 tab Q6H PRN PO PAIN 6-10 Last administered on 07/14/17at 14:25; Start 07/11/17 at 21:15 Miscellaneous (Pill Splitter) 1 ea UNSCH PRN OTHER SEE LABEL COMMENTS; Start at 21:30 Potassium Chloride (KCl) 20 meq ONCE ONCE PO Last administered on 07/12/17at 12 :47; Start 07/12/17 at 12:30; Stop 07/12/17 at 12:31; Status DC Cephalexin Monohydrate (Keflex) 500 mg Q6HR PO Last administered on 07/14/17at 06 :00; Start 07/13/17 at 12:00; Stop 07/14/17 at 08:37; Status DC Paclitaxel 151 mg/ Sodium Chloride 275.1667 ml @ 275.... ONCE ONCE IV ; Start 07/14/17 at 15:30; Stop 07/14/17 at 16:29; Status Cancel Lorazepam (Ativan Inj) 0.5 mg ONCE PRN IV SEE LABEL COMMENTS; Start 07/13/17 at 16:00; Stop 07/14/17 at 23:59; Status Cancel Dexamethasone Sodium Phosphate 10 mg/Sodium Chloride 52.5 ml @ 210 mls/hr ONCE PRN IV SEE LABEL COMMENTS; Start 07/14/17 at 16:00; Stop 07/14/17 at 23:59; Status Cancel Diphenhydramine HCl (Benadryl) 25 mg ONCE PRN PO SEE LABEL COMMENTS; Start 07/14 at 15:45; Stop 07/14/17 at 23:59; Status Cancel Famotidine (Pepcid) 20 mg ONCE PRN PO SEE LABEL COMMENTS; Start 07/14/17 at 15: 45; Stop 07/14/17 at 23:59; Status Cancel Cefazolin Sodium 1000 mg/Sodium Chloride 100 ml @ 200 mls/hr Q8H IV Last administered on 07/17/17at 04:00; Start 07/14/17 at 12:00; Stop 07/17/17 at 10:57; Status DC Dexamethasone Sodium Phosphate 10 mg/Sodium Chloride 52.5 ml @ 220 mls/hr ONCE ONCE IV Last administered on 07/14/17at 15:49; Start 07/14/17 at 15:00; Stop 07/14/17 at 15:14; Status DC Diphenhydramine HCl (Benadryl) 25 mg ONCE ONCE PO Last administered on at 15:49; Start 07/14/17 at 15:00; Stop 07/14/17 at 15:01; Status DC Famotidine (Pepcid) 20 mg ONCE ONCE PO Last administered on 07/14/17at 15:49; Start 07/14/17 at 15:00; Stop 07/14/17 at 15:01; Status DC Paclitaxel 154.4 mg/Sodium Chloride 275.7333 ml @ 275.... ONCE ONCE IV Last administered on 07/14/17at 17:22; Start 07/14/17 at 16:00; Stop 07/14/17 at 16:59; Status DC Sodium Chloride 250 ml @ 0 mls/hr ONCE ONCE IV Last administered on 07/14/17at 16:00; Start 07/14/17 at 16:00; Stop 07/14/17 at 16:01; Status DC Lorazepam (Ativan Inj) 1 mg STAT STAT IV PUSH Last administered on 07/14/17at 16 :00; Start 07/14/17 at 15:52; Stop 07/14/17 at 15:53; Status DC Sodium Chloride (NS Flush) 2 ml BID IV FLUSH Last administered on 08/05/17at 08: 29; Start 07/15/17 at 21:00 Cephalexin Monohydrate (Keflex) 500 mg Q6HR PO Last administered on 07/25/17at 17:11; Start 07/17/17 at 12:00; Stop 07/25/17 at 17:12; Status DC Sodium Chloride 250 ml @ 0 mls/hr ONCE ONCE IV ; Start 07/21/17 at 14:45; Stop 07/21/17 at 14:45; Status DC Lorazepam (Ativan Inj) 0.5 mg ONCE ONCE IV Last administered on 07/21/17at 15:36 ; Start 07/21/17 at 16:00; Stop 07/21/17 at 16:01; Status DC Sodium Chloride 250 ml @ 0 mls/hr ONCE ONCE IV Last administered on 07/21/17at 17:09; Start 07/21/17 at 17:00; Stop 07/21/17 at 17:01; Status DC Dexamethasone Sodium Phosphate 10 mg/Sodium Chloride 52.5 ml @ 210 mls/hr ONCE ONCE IV Last administered on 07/21/17at 15:42; Start 07/21/17 at 16:00; Stop 07/21/17 at 16:14; Status DC Diphenhydramine HCl (Benadryl) 25 mg ONCE ONCE PO Last administered on at 15:36; Start 07/21/17 at 16:00; Stop 07/21/17 at 16:01; Status DC Paclitaxel 156.8 mg/Sodium Chloride 276.1333 ml @ 276.... ONCE ONCE IV Last administered on 07/21/17 17:09; Start 07/21/17 at 17:00; Stop 07/21/17 at 17:59; Status DC Famotidine (Pepcid) 20 mg ONCE ONCE PO Last administered on 07/21/17at 15:36; Start 07/21/17 at 16:00; Stop 07/21/17 at 16:01; Status DC Heparin Sodium (Porcine) (Heparin Central Flush) 400 units ONCE ONCE IV FLUSH Last administered on 07/23/17at 13:04; Start 07/23/17 at 12:30; Stop 07/23/17 at 12:31; Status DC Haloperidol (Haldol) 10 mg BID PO Last administered on 08/07/17at 10:08; Start 07/25/17 at 10:30; Stop 08/07/17 at 10:34; Status DC Bacitracin (Baciguent Oint) 1 applic Q12HR TOPICAL Last administered on at 09:01; Start 07/26/17 at 21:00 Sodium Chloride 250 ml @ 30 mls/hr ONCE ONCE IV ; Start 07/28/17 at 14:00; Stop 07/28/17 at 22:19; Status Cancel Dexamethasone Sodium Phosphate 20 mg/Sodium Chloride 55 ml @ 220 mls/hr ONCE ONCE IV ; Start 07/28/17 at 13:00; Stop 07/28/17 at 13:14; Status Cancel Diphenhydramine HCl (Benadryl) 25 mg ONCE ONCE PO ; Start 07/28/17 at 13:00; Stop 07/28/17 at 13:01; Status Cancel Famotidine (Pepcid) 20 mg ONCE ONCE PO ; Start 07/28/17 at 13:00; Stop at 13:01; Status Cancel Paclitaxel 156 mg/ Sodium Chloride 526 ml @ 263 mls/hr ONCE ONCE IV ; Start at 14:00; Stop 07/28/17 at 15:59; Status Cancel Sodium Chloride 250 ml @ 30 mls/hr ONCE ONCE IV ; Start 07/28/17 at 16:00; Stop 07/29/17 at 00:19; Status Cancel Lorazepam (Ativan Inj) 0.5 mg ONCE ONCE IV ; Start 07/28/17 at 15:30; Stop at 15:31; Status Cancel Pertuzumab 420 mg/ Sodium Chloride 264 ml @ 528 mls/hr ONCE ONCE IV ; Start at 16:00; Stop 07/28/17 at 16:29; Status Cancel Trastuzumab 510 mg/Sodium Chloride 250 ml @ 166.667 mls/hr ONCE ONCE IV ; Start 07/28/17 at 17:00; Stop 07/28/17 at 18:29; Status Cancel Sodium Chloride 250 ml @ 30 mls/hr ONCE ONCE IV ; Start 07/28/17 at 17:00; Stop 07/29/17 at 01:19; Status Cancel Sodium Chloride 250 ml @ 30 mls/hr ONCE ONCE IV ; Start 07/28/17 at 14:00; Stop 07/28/17 at 22:19; Status Cancel Lorazepam (Ativan Inj) 0.5 mg ONCE ONCE IV ; Start 07/28/17 at 13:30; Stop at 13:31; Status Cancel Pertuzumab 420 mg/ Sodium Chloride 264 ml @ 528 mls/hr ONCE ONCE IV ; Start at 14:00; Stop 07/28/17 at 14:29; Status Cancel Trastuzumab 510 mg/Sodium Chloride 250 ml @ 166.667 mls/hr ONCE ONCE IV Last administered on 07/28/17at 15:24; Start 07/28/17 at 14:00; Stop 07/28/17 at 15:29 ; Status DC Sodium Chloride 250 ml @ 30 mls/hr ONCE ONCE IV Last administered on at 15:26; Start 07/28/17 at 14:00; Stop 07/28/17 at 22:19; Status DC Sodium Chloride 250 ml @ 30 mls/hr ONCE ONCE IV Last administered on at 18:06; Start 07/28/17 at 16:00; Stop 07/29/17 at 00:19; Status DC Lorazepam (Ativan Inj) 0.5 mg ONCE ONCE IV ; Start 07/28/17 at 15:30; Stop at 15:31; Status DC Pertuzumab 420 mg/ Sodium Chloride 264 ml @ 264 mls/hr ONCE ONCE IV Last administered on 07/28/17at 18:03; Start 07/28/17 at 16:00; Stop 07/28/17 at 16:59 ; Status DC Sodium Chloride 250 ml @ 30 mls/hr ONCE ONCE IV Last administered on at 20:15; Start 07/28/17 at 18:00; Stop 07/29/17 at 02:19; Status DC Dexamethasone Sodium Phosphate 20 mg/Sodium Chloride 55 ml @ 220 mls/hr ONCE ONCE IV Last administered on 07/28/17at 20:08; Start 07/28/17 at 17:00; Stop at 17:14; Status DC Diphenhydramine HCl (Benadryl) 25 mg ONCE ONCE PO Last administered on at 20:08; Start 07/28/17 at 17:00; Stop 07/28/17 at 17:01; Status DC Famotidine (Pepcid) 20 mg ONCE ONCE PO Last administered on 07/28/17at 20:08; Start 07/28/17 at 17:00; Stop 07/28/17 at 17:01; Status DC Paclitaxel 156 mg/ Sodium Chloride 276 ml @ 138 mls/hr ONCE ONCE IV Last administered on 07/28/17at 21:31; Start 07/28/17 at 18:00; Stop 07/28/17 at 19:59 ; Status DC Acetaminophen (Tylenol) 650 mg ONCE ONCE PO Last administered on 07/28/17at 14: 02; Start 07/28/17 at 13:30; Stop 07/28/17 at 13:31; Status DC Diphenhydramine HCl (Benadryl) 25 mg ONCE ONCE PO Last administered on at 14:02; Start 07/28/17 at 13:30; Stop 07/28/17 at 13:31; Status DC Granisetron HCl (Kytril Inj) 1 mg ONCE ONCE IV PUSH Last administered on at 20:08; Start 07/28/17 at 17:30; Stop 07/28/17 at 17:31; Status DC Heparin Sodium (Porcine) (Heparin Central Flush) 250 units UNSCH PRN IV FLUSH SEE PROTOCOL TABLE; Start 07/28/17 at 23:45 Heparin Sodium (Porcine) (Heparin Central Flush) 500 units UNSCH IV FLUSH Last administered on 08/05/17at 08:29; Start 07/28/17 at 23:45 Sodium Chloride (NS Flush) 5 ml UNSCH PRN IV FLUSH SEE LABEL COMMENTS; Start at 23:45 Paclitaxel 156 mg/ Sodium Chloride 276 ml @ 276 mls/hr ONCE ONCE IV Last administered on 08/04/17at 17:41; Start 08/04/17 at 18:00; Stop 08/04/17 at 18:59 ; Status DC Sodium Chloride 250 ml @ 30 mls/hr ONCE ONCE IV Last administered on at 17:43; Start 08/04/17 at 18:00; Stop 08/05/17 at 02:19; Status DC Dexamethasone Sodium Phosphate 10 mg/Sodium Chloride 52.5 ml @ 210 mls/hr ONCE ONCE IV Last administered on 08/04/17at 16:31; Start 08/04/17 at 17:00; Stop 08/04/17 at 17:14; Status DC Diphenhydramine HCl (Benadryl) 25 mg ONCE ONCE PO Last administered on at 16:31; Start 08/04/17 at 17:00; Stop 08/04/17 at 17:01; Status DC Famotidine (Pepcid) 20 mg ONCE ONCE PO Last administered on 08/04/17at 16:31; Start 08/04/17 at 17:00; Stop 08/04/17 at 17:01; Status DC Potassium Chloride (KCl) 20 meq ONCE ONCE PO Last administered on 08/04/17at 17 :06; Start 08/04/17 at 17:00; Stop 08/04/17 at 17:01; Status DC Miscellaneous Information 1 HS T-DERMAL ; Start 08/04/17 at 21:00 Haloperidol (Haldol) 10 mg DAILY PO Last administered on 08/08/17at 09:00; Start 08/08/17 at 09:00 Haloperidol (Haldol) 15 mg HS PO Last administered on 08/07/17at 20:24; Start at 21:00 A/P Problem List: (1) HER2-positive carcinoma of right breast ICD Code: C50.911 - Malignant neoplasm of unspecified site of right female breast (2) Deep venous thrombosis of left upper extremity ICD Code: I82.622 - Acute embolism and thrombosis of deep veins of left upper extremity (3) Psychosis not due to substance or known physiological condition ICD Code: F29 - Unspecified psychosis not due to a substance or known physiological condition Assessment and Plan 52 years old female with psychosis, schizophrenia, LUE DVT, breast CA, who is HER2 positive. Schizophrenia - Treatment per psychiatry. LUE DVT - Patient seen and evaluated by hem/onc. On lovenox therapeutic dose. - LUE with little to no swelling noted, no pain reported. (if no improvement of LUE by US on LMWH, Dr Sewell planned to remove port (likely in 6 weeks when chemo finish) HER 2 shirley positive R breast CA - on chemo- last dose 07/14/17 - planned taxol every week with Dr Villareal. -- CHEMO 2-2 AND 2-16 WILL NEED RIGHT SIDE MASTECTOMY IN FUTURE WITH PROBABLE RECONSTRUCTIVE SURGERY Left 2nd toe and right big toe cellulitis - - Resolved S/P total 10 days course of Cefazolin + Keflex. 07/25. Superficial excoriations/ wounds on left upper arm - improved - continue Bacitracin bid DVT prophylaxis-lovenox HYPOKALEMIA RESOLVED Labs reviewed stable Discussed with nurse. Discharge Planning Pending psychiatric clearance Brandon Teixeira DO Aug 08, 2017 15:19
[2017-08-08 18:08] VITALS: BP 118/67; PULSE 71; RESP 16; TEMP 97.3; O2SAT 98
[2017-08-08] MEDS: ZOLPIDEM TARTRATE 5 MG TAB PO PRN (20:25)
[2017-08-08] MEDS: REMOVE OLD NICODERM (NICOTINE) PATCH T-DERMAL SCH (20:25)
[2017-08-09] MEDS: HALOPERIDOL 5 MG TAB PO SCH ×2 (09:53→20:51)
[2017-08-09] MEDS: SODIUM CHLORIDE 0.9% FLUSH 10 ML FLUSH IV FLUSH SCH ×3 (09:54→20:56)
[2017-08-09] MEDS: ENOXAPARIN SODIUM 100 MG/ML SYRINGE SQ SCH ×2 (09:58→20:48)
[2017-08-09] MEDS: BACITRACIN TOP OINT 15 GM TUBE TOPICAL SCH ×2 (09:58→20:48)
--- NOTE | 2017-08-09 12:40 | HHI.PYPN ---
Subjective Remarks Patient seen for follow-up, chart reviewed. Discussion nursing staff or the patient slept well, continues to be med compliant but is noted to be disorganized at times. Patient was found lying in hospital bed noted to be somewhat perseverative on attending groups today, plan to continue chemotherapy and possible plan for reconstruction after mastectomy was also reviewed with patient which patient seemed to have some limited understanding of this but is willing to continue to discuss this with treatment team after completion of chemotherapy. Patient denies any physical pain at this time denies any perceptual disturbances. Review of Systems Except as stated in HPI: all other systems reviewed are Neg Mental Status Examination Appearance: Disheveled Consciousness: Alert Orientation: Person, Place, Date/Time Motor Activity: Other (no abnormal motor movements noted) Speech: Unremarkable Language: Adequate Fund of Knowledge: Inadequate Attention and Concentration: Adequate Memory: Impaired Mood: Appropriate Affect: Appropriate Thought Process & Associations: Other (Burns) Thought Content: Bizarre thinking, Delusional Hallucination Type: None Delusion Type: Bizarre Suicidal Ideation: No Suicidal Plan: No Suicidal Intention: No Homicidal Ideation: No Homicidal Plan: No Homicidal Intention: No Insight: Poor Judgment: Poor Results Vitals/IOs Vital Signs Date Time Temp Pulse Resp B/P (MAP) Pulse Ox O2 Delivery O2 Flow Rate FiO2 08/08/17 18:08 97.3 71 16 118/67 (84) 98 Intake and Output 08/09/17 08/09/17 08/10/17 08:00 16:00 00:00 Intake Total 840 ml 480 ml Balance 840 ml 480 ml Assessment & Plan Problem List: (1) Psychosis not due to substance or known physiological condition ICD Codes: F29 - Unspecified psychosis not due to a substance or known physiological condition Assessment & Plan Patient at this time continues to have disorganized behavior at times and voicing some delusional material occasionally but redirectable. Patient continues compliance with treatment. Continue current treatment. Continue her condition as per prior medical team. Patient to continue chemotherapy upon completion will meet with. Surgery team to discuss mastectomy and reconstruction. Continue to monitor with behavior. Discharge planning in progress Justification for Cont. Inpt. At risk of further decompensation at lower level of care. Discharge Planning [facility] referral Yadiel Enamorado MD Aug 09, 2017 12:40
--- NOTE | 2017-08-09 13:38 | HHI.PR ---
Subjective Remarks Patient is resting comfortably today. She does not seem to have good insight into the reasons that she is here. She was unaware of why she was receiving injections in her abdomen, and I explained to her that that was for treatment of her DVT she expressed that she did not know she had a DVT. Objective Vitals Vital Signs Date Time Temp Pulse Resp B/P (MAP) Pulse Ox O2 Delivery O2 Flow Rate FiO2 08/08/17 18:08 97.3 71 16 118/67 (84) 98 I/O 08/08/17 08/08/17 08/08/17 08/09/17 08/09/17 08/09/17 07:00 15:00 23:00 07:00 15:00 23:00 Intake Total 240 ml 720 ml 2520 ml 840 ml 960 ml Balance 240 ml 720 ml 2520 ml 840 ml 960 ml Intake Oral 240 ml 720 ml 2520 ml 840 ml 960 ml # Voids 1 4 2 # Bowel Movements 0 Result Diagram: 08/08/17 0708 Objective Remarks GENERAL: Obese, questionable cognitive deficits SKIN: Warm and dry. HEAD: Normocephalic. EYES: No scleral icterus. No injection or drainage. NECK: Supple, trachea midline. No JVD or lymphadenopathy. CARDIOVASCULAR: Regular rate and rhythm without murmurs, gallops, or rubs. RESPIRATORY: Breath sounds equal bilaterally. No accessory muscle use. GASTROINTESTINAL: Abdomen soft, non-tender, nondistended. EXTREMITIES: Trace edema in lower extremities NEUROLOGICAL: Awake, alert, and oriented x 3. Non-focal. Procedures CHEMO A/P Problem List: (1) HER2-positive carcinoma of right breast ICD Code: C50.911 - Malignant neoplasm of unspecified site of right female breast (2) Deep venous thrombosis of left upper extremity ICD Code: I82.622 - Acute embolism and thrombosis of deep veins of left upper extremity (3) Psychosis not due to substance or known physiological condition ICD Code: F29 - Unspecified psychosis not due to a substance or known physiological condition Assessment and Plan Schizophrenia Treatment per psychiatry. LUE DVT Continue Lovenox therapeutic dose Appreciate Heme/Onc consult If no improvement of LUE by US on LMWH, Dr Sewell planned to remove port ( likely when chemo finished, approx 6 weeks) HER 2 shirley positive R breast CA On chemo- last dose 07/14/17 - planned taxol every week with Dr Villareal. --CHEMO 2-2 AND 2-16 WILL NEED RIGHT SIDE MASTECTOMY IN FUTURE WITH PROBABLE RECONSTRUCTIVE SURGERY Left 2nd toe and right big toe cellulitis Resolved following 10 days course of Cefazolin + Keflex. 07/25. Superficial excoriations/ wounds on left upper arm Improved, bacitracin BID prn DVT prophylaxis Loveslyx Uriel Klein MD Aug 09, 2017 13:38
[2017-08-09 18:00] VITALS: BP 125/80; PULSE 82; RESP 15; TEMP 97.8; O2SAT 98
[2017-08-09] MEDS: ALUMINUM/MAGNESIUM/SIMETH 30 ML CUP PO PRN (20:48)
[2017-08-09] MEDS: ZOLPIDEM TARTRATE 5 MG TAB PO PRN (20:50)
[2017-08-09] MEDS: oxyCODONE/ACETAMINOPHEN 5 MG/325 MG TAB PO PRN (20:50)
[2017-08-09] MEDS: REMOVE OLD NICODERM (NICOTINE) PATCH T-DERMAL SCH (20:51)
[2017-08-10 06:00] VITALS: BP 114/70; PULSE 62; RESP 18; TEMP 98; O2SAT 97
[2017-08-10] MEDS: BACITRACIN TOP OINT 15 GM TUBE TOPICAL SCH ×2 (09:00→21:00)
[2017-08-10] MEDS: SODIUM CHLORIDE 0.9% FLUSH 10 ML FLUSH IV FLUSH SCH ×2 (09:00→21:00)
[2017-08-10] MEDS: HALOPERIDOL 5 MG TAB PO SCH ×2 (10:04→22:14)
[2017-08-10] MEDS: ENOXAPARIN SODIUM 100 MG/ML SYRINGE SQ SCH ×2 (10:07→22:15)
--- NOTE | 2017-08-10 10:35 | HHI.PR ---
Subjective Remarks Patient is again resting but easily awakened. She denies any nausea vomiting denies fevers denies pain. Objective Vitals Vital Signs Date Time Temp Pulse Resp B/P (MAP) Pulse Ox O2 Delivery O2 Flow Rate FiO2 08/10/17 06:00 98.0 62 18 114/70 (85) 97 08/09/17 18:00 97.8 82 15 125/80 (95) 98 I/O 08/09/17 08/09/17 08/09/17 08/10/17 08/10/17 08/10/17 07:00 15:00 23:00 07:00 15:00 23:00 Intake Total 840 ml 1920 ml 1560 ml 360 ml Balance 840 ml 1920 ml 1560 ml 360 ml Intake Oral 840 ml 1920 ml 1560 ml 360 ml # Voids 2 1 1 # Bowel Movements 0 Result Diagram: 08/08/17 0708 Objective Remarks GENERAL: Obese, questionable cognitive deficits SKIN: Warm and dry. HEAD: Normocephalic. EYES: No scleral icterus. No injection or drainage. NECK: Supple, trachea midline. No JVD or lymphadenopathy. CARDIOVASCULAR: Regular rate and rhythm without murmurs, gallops, or rubs. RESPIRATORY: Breath sounds equal bilaterally. No accessory muscle use. GASTROINTESTINAL: Abdomen soft, non-tender, nondistended. EXTREMITIES: Trace edema in lower extremities NEUROLOGICAL: Awake, alert, and oriented x 3. Non-focal. Procedures CHEMO A/P Problem List: (1) HER2-positive carcinoma of right breast ICD Code: C50.911 - Malignant neoplasm of unspecified site of right female breast (2) Deep venous thrombosis of left upper extremity ICD Code: I82.622 - Acute embolism and thrombosis of deep veins of left upper extremity (3) Psychosis not due to substance or known physiological condition ICD Code: F29 - Unspecified psychosis not due to a substance or known physiological condition Assessment and Plan 52-year-old female with left upper extremity DVT in the context of chemotherapy for breast cancer. She has no complaints today and there is no change to her therapy. Schizophrenia Treatment per psychiatry. LUE DVT Continue Lovenox therapeutic dose Appreciate Heme/Onc consult If no improvement of LUE by US on LMWH, Dr Sewell planned to remove port ( likely when chemo finished, approx 6 weeks) HER 2 shirley positive R breast CA On chemo- last dose 07/14/17 - planned taxol every week with Dr Villareal. --CHEMO 2-2 AND 2-16 WILL NEED RIGHT SIDE MASTECTOMY IN FUTURE WITH PROBABLE RECONSTRUCTIVE SURGERY Left 2nd toe and right big toe cellulitis Resolved following 10 days course of Cefazolin + Keflex. 07/25. Superficial excoriations/ wounds on left upper arm Improved, bacitracin BID prn DVT prophylaxis Lovenox Uriel Klein MD Aug 10, 2017 10:35
--- NOTE | 2017-08-10 13:14 | PD.ONC.PN ---
Subjective Subjective Remarks Afebrile overnight. Patient resting in bed. has been losing her hair. denies nausea or vomiting. no diarrhea. endorses hot flashes. no cough. Objective Data Date Time Temp Pulse Resp B/P (MAP) Pulse Ox O2 Delivery O2 Flow Rate FiO2 08/10/17 06:00 98.0 62 18 114/70 (85) 97 08/09/17 18:00 97.8 82 15 125/80 (95) 98 08/10/17 08/10/17 08/10/17 07:00 15:00 23:00 Intake Total 360 ml Balance 360 ml Result Diagram: 08/08/17 0708 Administered Medications Medications (Trade) Dose Ordered Sig/Renard Route PRN Reason Start Time Stop Time Status Last Admin Dose Admin Zolpidem Tartrate (Ambien) 5 mg HS PRN PO INSOMNIA 07/11/17 21:15 08/09/17 20:50 Enoxaparin Sodium (Lovenox Inj) 90 mg Q12H SQ 07/11/17 22:00 08/10/17 10:07 Lorazepam (Ativan) 1 mg Q6H PRN PO MODERATE TO SEVERE ANXIETY 07/11/17 21:15 07/19/17 05:03 Acetaminophen (Tylenol) 650 mg Q4H PRN PO Pain 1-5 or Temp >101F 07/11/17 21:15 07/17/17 20:42 Al Hydrox/Mg Hydrox/Simethicone (Mag-Al Plus Susp Liq) 30 ml Q6H PRN PO DYSPEPSIA 07/11/17 21:15 08/09/17 20:48 Oxycodone/ Acetaminophen (Percocet 5-325 Mg) 1 tab Q6H PRN PO PAIN 6-10 07/11/17 21:15 08/09/17 20:50 Sodium Chloride (NS Flush) 2 ml BID IV FLUSH 07/15/17 21:00 08/05/17 08:29 Bacitracin (Baciguent Oint) 1 applic Q12HR TOPICAL 07/26/17 21:00 08/10/17 09:00 Heparin Sodium (Porcine) (Heparin Central Flush) 500 units UNSCH IV FLUSH 07/28/17 23:45 08/05/17 08:29 Haloperidol (Haldol) 10 mg DAILY PO 08/08/17 09:00 08/10/17 10:04 Haloperidol (Haldol) 15 mg HS PO 08/07/17 21:00 08/09/17 20:51 Objective Remarks GENERAL: Middle aged female, lying in bed, resting on approach. SKIN: Warm and dry. HEAD: Normocephalic. EYES: No injection or drainage. NECK: Supple, trachea midline. CARDIOVASCULAR: Regular rate and rhythm RESPIRATORY: Breath sounds equal bilaterally. No accessory muscle use. GASTROINTESTINAL: Abdomen soft, non-tender, nondistended. EXTREMITIES: No cyanosis NEUROLOGICAL: awake and alert, normal speech. moving all extremities. Assessment/Plan Problem List: (1) HER2-positive carcinoma of right breast ICD Codes: C50.911 - Malignant neoplasm of unspecified site of right female breast Plan: 07/14: continue weekly therapy with Taxol. does not need Herceptin this week, was given q3 weeks dosing in clinic. 07/20/17. Continue weekly Taxol. Next week next dose Herceptin/Perjeta/Taxol is due. We discussed goal typically to give neoadjuvant therapy for 12 weeks or best response. She is tolerating chemotherapy well. She seems to understand the need to treat her cancer. 07/21: Taxol today. monitor for adverse reaction. 07/27: obtain labs, prepare for Herceptin/Perjeta and Taxol tomorrow. 07/28: Herceptin/Perjeta/Taxol today. tolerating chemotherapy. 08/03: plan for weekly taxol tomorrow. 08/04: proceed with weekly taxol. after finishing 12 weeks of chemotherapy, will plan for mastectomy, then reconstruction. 08/10: plan to give Herceptin/Perjeta/Taxol tomorrow. (2) Deep venous thrombosis of left upper extremity ICD Codes: I82.622 - Acute embolism and thrombosis of deep veins of left upper extremity Plan: --on therapeutic dose Lovenox Assessment 52y/o female with locally advanced HER2/shirley over expressing ER positive right breast cancer currently admitted for psychosis. 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 h/o Chemotherapy induced anemia. Plan 1. obtain labs today 2. proceed with chemotherapy tomorrow. Attending Statement The exam, history, and the medical decision-making described in the above note were completed with the assistance of the mid-level provider. I reviewed and agree with the findings presented. I attest that I had a [id number] encounter with the patient on the same day, and personally performed and documented my assessment and findings in the medical record. Pt seen and examined. Pustule over L arm which pt picked off. L arm swelling improved significantly. R axilla negative. R breast mass behind nipple softer but still present. Reviewed chemo treatment so far, plan on 12 weekly cycles of Taxol. She has had chemo 06/08/17, 06/15/17, 06/22/17, 06/29/17, 07/07/17, 07/14/17, 07/21/17 , 07/28/17, 08/04/17, 08/10/17 is week number 10, 08/18/17 is week 11, 08/25/17 is week 12. Herceptin/Perjeta is continued Q 3 weeks next dose due 08/18/17. Goal Herceptin and Perjeta to continue for 52 weeks- which will be completed as outpatient. Noted clinical plateau of response to chemotherapy in right breast but no progression or worsening. Anticipate recommend surgery after 08/25/17. Discussed with patient plastic surgery recommendations for delayed reconstruction. Idalia Disla Aug 10, 2017 13:14 Alexa Villareal MD Aug 10, 2017 16:13
--- NOTE | 2017-08-10 14:17 | HHI.PYPN ---
Subjective Remarks Patient seen for follow up; chart reviewed. Discussion with nursing staff reported patient compliant with treatment. Patient is found lying hospital bed noted, cooperative. Patient states that she is feeling "fine" reports sleeping well denies any physical pain at this time. Patient denies any perceptual disturbances. Patient preservative on attending groups today. Patient did endorse any delusional material today although continue to be noted to have occasional preoccupations with bizarre delusions. Review of Systems Except as stated in HPI: all other systems reviewed are Neg Mental Status Examination Appearance: Disheveled Consciousness: Alert Orientation: Person, Place, Date/Time Motor Activity: Other (no abnormal motor movements noted) Speech: Unremarkable Language: Adequate Fund of Knowledge: Inadequate Attention and Concentration: Adequate Memory: Impaired Mood: Appropriate Affect: Appropriate Thought Process & Associations: Other ([place]) Thought Content: Bizarre thinking, Delusional Hallucination Type: None Delusion Type: Bizarre Suicidal Ideation: No Suicidal Plan: No Suicidal Intention: No Homicidal Ideation: No Homicidal Plan: No Homicidal Intention: No Insight: Poor Judgment: Poor Results Vitals/IOs Vital Signs Date Time Temp Pulse Resp B/P (MAP) Pulse Ox O2 Delivery O2 Flow Rate FiO2 08/10/17 06:00 98.0 62 18 114/70 (85) 97 Intake and Output 08/10/17 08/10/17 08/11/17 08:00 16:00 00:00 Intake Total 600 ml Balance 600 ml Assessment & Plan Problem List: (1) Psychosis not due to substance or known physiological condition ICD Codes: F29 - Unspecified psychosis not due to a substance or known physiological condition Assessment & Plan Patient this time continues to have some disorganized behavior has baseline with occasional delusional material but at this time mostly perseverative on attending groups. Patient to continue current treatment. Continue monitoring her behavior. Patient will have continued chemotherapy tomorrow. Continue recommendations per primary team. Discharge planning in progress Justification for Cont. Inpt. At risk for further decompensation if at lower level of care Discharge Planning State referral Yadiel Enamorado MD Aug 10, 2017 14:17
[2017-08-10 15:51] LABS: AUTOMATED NEUTROPHIL # 3.6 TH/MM3 (1.8-7.7); BASOPHIL % 0.7 % (0.0-2.0); EOSINOPHIL # 0.1 TH/MM3 (0-0.4); EOSINOPHIL % 2.1 % (0.0-4.0); HEMATOCRIT 36.8 % (35.0-46.0); HEMOGLOBIN 12.7 GM/DL (11.6-15.3); LYMPH % 29.1 % (9.0-44.0); LYMPHOCYTE # 1.6 TH/MM3 (1.0-4.8); MEAN CELL VOLUME 90.4 FL (80.0-100.0); MEAN CORPUSCULAR HEMOGLOBIN 31.2 PG (27.0-34.0); MEAN CORPUSCULAR HGB CONC 34.5 % (32.0-36.0); MEAN PLATELET VOLUME 8.9 FL (7.0-11.0); MONO % 5.4 % (0.0-8.0); MONOCYTE # 0.3 TH/MM3 (0-0.9); NEUT % 62.7 % (16.0-70.0); PLATELET COUNT 279 TH/MM3 (150-450); RED BLOOD COUNT 4.07 MIL/MM3 (4.00-5.30); RED CELL DISTRIBUTION WIDTH 15.8 % (11.6-17.2); WHITE BLOOD COUNT 5.7 TH/MM3 (4.0-11.0)
[2017-08-10 16:10] LABS: ALT (GPT) 49 U/L (10-53); AST (GOT) 25 U/L (15-37); BICARBONATE 30.3 MEQ/L (21.0-32.0); BLOOD UREA NITROGEN 13 MG/DL (7-18); CHLORIDE 102 MEQ/L (98-107); GLOMERULAR FILTRATION RATE 105 ML/MIN (>89); GLUCOSE,RANDOM 93 MG/DL (74-106); SODIUM (NA) 140 MEQ/L (136-145)
[2017-08-10 16:30] LABS: ALKALINE PHOSPHATASE 65 U/L (45-117); TOTAL BILIRUBIN ADULT 0.5 MG/DL (0.2-1.0); TOTAL PROTEIN 6.3 GM/DL (6.4-8.2)
[2017-08-10 18:46] VITALS: BP 159/78; PULSE 93; RESP 16; TEMP 98.2
[2017-08-10] MEDS: REMOVE OLD NICODERM (NICOTINE) PATCH T-DERMAL SCH (21:00)
[2017-08-10] MEDS: ZOLPIDEM TARTRATE 5 MG TAB PO PRN (22:14)
[2017-08-11 06:00] VITALS: BP 107/60; PULSE 65; RESP 18; TEMP 97.7; O2SAT 95
--- NOTE | 2017-08-11 08:16 | HHI.PYPN ---
Subjective Remarks Patient seen for follow, chart reviewed. Discussion nursing staff reported the patient was somewhat irritable yesterday as she was not milligrams attend groups. Patient was found sleeping was able to wake up for interview today. Patient continues to be somewhat irritable and upset that she was not taken down to groups. She states that she would like to attend today but is aware that she has chemotherapy scheduled for today. Patient denies any physical symptoms or pain, denies any perceptual disturbances at this time. Review of Systems Except as stated in HPI: all other systems reviewed are Neg Mental Status Examination Appearance: Disheveled Consciousness: Alert Orientation: Person, Place, Date/Time Motor Activity: Other (no abnormal motor movements noted) Speech: Unremarkable Language: Adequate Fund of Knowledge: Inadequate Attention and Concentration: Adequate Memory: Impaired Mood: Irritable Affect: Irritable Thought Process & Associations: Other ([place]) Thought Content: Bizarre thinking, Delusional Hallucination Type: None Delusion Type: Bizarre Suicidal Ideation: No Suicidal Plan: No Suicidal Intention: No Homicidal Ideation: No Homicidal Plan: No Homicidal Intention: No Insight: Poor Judgment: Poor Results Labs Labs reviewed Test 08/10/17 14:28 White Blood Count 5.7 TH/MM3 Red Blood Count 4.07 MIL/MM3 Hemoglobin 12.7 GM/DL Hematocrit 36.8 % Mean Corpuscular Volume 90.4 FL Mean Corpuscular Hemoglobin 31.2 PG Mean Corpuscular Hemoglobin Concent 34.5 % Red Cell Distribution Width 15.8 % Platelet Count 279 TH/MM3 Mean Platelet Volume 8.9 FL Neutrophils (%) (Auto) 62.7 % Lymphocytes (%) (Auto) 29.1 % Monocytes (%) (Auto) 5.4 % Eosinophils (%) (Auto) 2.1 % Basophils (%) (Auto) 0.7 % Neutrophils # (Auto) 3.6 TH/MM3 Lymphocytes # (Auto) 1.6 TH/MM3 Monocytes # (Auto) 0.3 TH/MM3 Eosinophils # (Auto) 0.1 TH/MM3 Basophils # (Auto) 0.0 TH/MM3 CBC Comment AUTO DIFF Differential Comment AUTO DIFF CONFIRMED Blood Urea Nitrogen 13 MG/DL Creatinine 0.60 MG/DL Random Glucose 93 MG/DL Total Protein 6.3 GM/DL Albumin 3.0 GM/DL Calcium Level 9.0 MG/DL Alkaline Phosphatase 65 U/L Aspartate Amino Transf (AST/SGOT) 25 U/L Alanine Aminotransferase (ALT/SGPT) 49 U/L Total Bilirubin 0.5 MG/DL Sodium Level 140 MEQ/L Potassium Level 3.8 MEQ/L Chloride Level 102 MEQ/L Carbon Dioxide Level 30.3 MEQ/L Anion Gap 8 MEQ/L Estimat Glomerular Filtration Rate 105 ML/MIN Vitals/IOs Vital Signs Date Time Temp Pulse Resp B/P (MAP) Pulse Ox O2 Delivery O2 Flow Rate FiO2 08/11/17 06:00 97.7 65 18 107/60 (76) 95 Intake and Output 08/11/17 08/11/17 08/12/17 08:00 16:00 00:00 Intake Total 0 ml Balance 0 ml Assessment & Plan Problem List: (1) Psychosis not due to substance or known physiological condition ICD Codes: F29 - Unspecified psychosis not due to a substance or known physiological condition Assessment & Plan Patient this time continues with occasional perseveration on bizarre delusions but has not done so recently. Patient to continue current treatment. Patient continue with scheduled chemotherapy today. Continue recommendations per prior medical team. Continue to monitor mood and behavior. Discharge planning in progress. Justification for Cont. Inpt. At risk for decompensation at lower level of care Discharge Planning [facility] referral Yadiel Enamorado MD Aug 11, 2017 08:16
[2017-08-11] MEDS: BACITRACIN TOP OINT 15 GM TUBE TOPICAL SCH ×2 (09:00→21:00)
[2017-08-11] MEDS: SODIUM CHLORIDE 0.9% FLUSH 10 ML FLUSH IV FLUSH SCH ×2 (09:00→21:00)
[2017-08-11] MEDS: ENOXAPARIN SODIUM 100 MG/ML SYRINGE SQ SCH ×2 (09:04→22:00)
[2017-08-11] MEDS: HALOPERIDOL 5 MG TAB PO SCH ×2 (09:04→21:00)
--- NOTE | 2017-08-11 13:29 | HHI.PR ---
Subjective Remarks Patient is sleeping but easily awakened, says she feels fine. She has no complaints of nausea, vomiting or fever. Objective Vitals Vital Signs Date Time Temp Pulse Resp B/P (MAP) Pulse Ox O2 Delivery O2 Flow Rate FiO2 08/11/17 06:00 97.7 65 18 107/60 (76) 95 08/10/17 18:46 98.2 93 16 159/78 (105) I/O 08/10/17 08/10/17 08/10/17 08/11/17 08/11/17 08/11/17 07:00 15:00 23:00 07:00 15:00 23:00 Intake Total 600 ml 1680 ml 0 ml 720 ml Balance 600 ml 1680 ml 0 ml 720 ml Intake Oral 600 ml 1680 ml 0 ml 720 ml # Voids 1 1 1 Result Diagram: 08/10/17 1428 08/10/17 1428 Objective Remarks GENERAL: Obese, questionable cognitive deficits SKIN: Warm and dry. HEAD: Normocephalic. EYES: No scleral icterus. No injection or drainage. NECK: Supple, trachea midline. No JVD or lymphadenopathy. CARDIOVASCULAR: Regular rate and rhythm without murmurs, gallops, or rubs. RESPIRATORY: Breath sounds equal bilaterally. No accessory muscle use. GASTROINTESTINAL: Abdomen soft, non-tender, nondistended. EXTREMITIES: Trace edema in lower extremities NEUROLOGICAL: Awake, alert, and oriented x 3. Non-focal. Procedures CHEMO A/P Problem List: (1) HER2-positive carcinoma of right breast ICD Code: C50.911 - Malignant neoplasm of unspecified site of right female breast (2) Deep venous thrombosis of left upper extremity ICD Code: I82.622 - Acute embolism and thrombosis of deep veins of left upper extremity (3) Psychosis not due to substance or known physiological condition ICD Code: F29 - Unspecified psychosis not due to a substance or known physiological condition Assessment and Plan 52-year-old female with left upper extremity DVT in the context of chemotherapy for breast cancer. She has no complaints today, no change to her therapy. Schizophrenia Treatment per psychiatry. LUE DVT Continue Lovenox therapeutic dose Appreciate Heme/Onc consult If no improvement of LUE by US on LMWH, Dr Sewell planned to remove port ( likely when chemo finished, approx 6 weeks) HER 2 shirley positive R breast CA On chemo- last dose 07/14/17 - planned taxol every week with Dr Villareal. --CHEMO 2-2 AND 2-16 WILL NEED RIGHT SIDE MASTECTOMY IN FUTURE WITH PROBABLE RECONSTRUCTIVE SURGERY Left 2nd toe and right big toe cellulitis Resolved following 10 days course of Cefazolin + Keflex. 07/25. Superficial excoriations/ wounds on left upper arm Improved, bacitracin BID prn DVT prophylaxis Lovenox Uriel Klein MD Aug 11, 2017 13:29
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
[2017-08-11] MEDS ORDERED: DEXAMETHASONE INJ 10 MG in SODIUM CHLORIDE 0.9% INJ 50 ML IV ONE (17:00)
[2017-08-11] MEDS ORDERED: FAMOTIDINE 20 MG TAB PO ONE (17:00)
[2017-08-11] MEDS ORDERED: diphenhydrAMINE HCL 25 MG CAP PO ONE (17:00)
[2017-08-11 17:01] VITALS: BP 144/87; PULSE 75; RESP 20; O2SAT 99
[2017-08-11] MEDS ORDERED: PACLITAXEL IV ONE (18:00)
[2017-08-11] MEDS ORDERED: SODIUM CHLOR 0.9% 250 ML INJ 250 ML IV ONE (18:00)
[2017-08-11] MEDS ORDERED: SODIUM CHLOR 0.9% IV ONE (18:00)
[2017-08-11 20:10] VITALS: BP 127/85; PULSE 92; RESP 20; TEMP 98.2; O2SAT 95
[2017-08-11] MEDS: REMOVE OLD NICODERM (NICOTINE) PATCH T-DERMAL SCH (21:00)
[2017-08-12 05:57] VITALS: BP 134/67; PULSE 72; RESP 20; TEMP 96.5; O2SAT 96
[2017-08-12] MEDS: BACITRACIN TOP OINT 15 GM TUBE TOPICAL SCH ×2 (09:00→21:00)
[2017-08-12] MEDS: SODIUM CHLORIDE 0.9% FLUSH 10 ML FLUSH IV FLUSH SCH ×2 (09:00→21:00)
[2017-08-12] MEDS: ENOXAPARIN SODIUM 100 MG/ML SYRINGE SQ SCH ×2 (09:33→22:00)
[2017-08-12] MEDS: HALOPERIDOL 5 MG TAB PO SCH ×2 (09:33→21:00)
--- NOTE | 2017-08-12 15:17 | HHI.PYPN ---
Subjective Remarks On psychiatric evaluation today the patient is calm, cooperative, pleasant. Patient stated that she feels okay, reports good mood, denies anhedonia, denies hopelessness, she denies suicidal and homicidal ideation, she denies visual and auditory hallucinations. At times becomes kind of disorganized, but she is fully oriented 3. Compliant with medications, no significant side effects reported. Mental Status Examination Appearance: Disheveled Consciousness: Alert Orientation: Person, Place, Date/Time Motor Activity: Other (no abnormal motor movements noted) Speech: Unremarkable Language: Adequate Fund of Knowledge: Inadequate Attention and Concentration: Adequate Memory: Impaired Mood: Irritable Affect: Irritable Thought Process & Associations: Other ([place]) Thought Content: Bizarre thinking, Delusional Hallucination Type: None Delusion Type: Bizarre Suicidal Ideation: No Suicidal Plan: No Suicidal Intention: No Homicidal Ideation: No Homicidal Plan: No Homicidal Intention: No Insight: Poor Judgment: Poor Results Labs Test 08/12/17 07:29 D-Dimer Quantitative (PE/DVT) LESS THAN 0.19 MG/L FEU Vitals/IOs Vital Signs Date Time Temp Pulse Resp B/P (MAP) Pulse Ox O2 Delivery O2 Flow Rate FiO2 08/12/17 05:57 96.5 72 20 134/67 (89) 96 Intake and Output 08/12/17 08/12/17 08/13/17 08:00 16:00 00:00 Intake Total 240 ml Balance 240 ml Assessment & Plan Problem List: (1) Psychosis not due to substance or known physiological condition ICD Codes: F29 - Unspecified psychosis not due to a substance or known physiological condition Assessment & Plan Estimated LOS: days Justification for Cont. Inpt. Patient has an elevated risk to decompensate at a lower level of care. Palomo Pham MD Aug 12, 2017 15:17
--- NOTE | 2017-08-12 16:05 | HHI.PR ---
Subjective Remarks Pt seen and examined. Vitals erviewed. No acute events per nursing. Pt states she is feeling well. No complaints. Has questions about surgical treatment of her breast cancer and I explained to her that ultimately the surgeon will advise what procedure to do but it will likely be a mastectomy. Denies CP, SOB, abdominal pain. Tolerating PO. Objective Vital Signs Date Time Temp Pulse Resp B/P (MAP) Pulse Ox O2 Delivery O2 Flow Rate FiO2 08/12/17 05:57 96.5 72 20 134/67 (89) 96 08/11/17 20:10 98.2 92 20 127/85 (99) 95 08/11/17 17:01 75 20 144/87 (106) 99 I/O 08/11/17 08/11/17 08/11/17 08/12/17 08/12/17 08/12/17 07:00 15:00 23:00 07:00 15:00 23:00 Intake Total 0 ml 720 ml 3358 ml 240 ml Balance 0 ml 720 ml 3358 ml 240 ml Intake Oral 0 ml 720 ml 3000 ml 240 ml IV Total 358 ml # Voids 1 3 1 Result Diagram: 08/10/17 1428 08/10/17 1428 Objective Remarks GENERAL: WN, WD female laying comfortably in bed in NAD. SKIN: Warm and dry. HEENT: Pupils equal and round. MMM. NECK: Supple no tender LAD or JVD. CHEST: Port left chest. No overlying warmth or erythema. HEART: RRR no m/r/g. LUNGS: CTAB without wheezes or crackles. ABDOMEN: Soft, NT, ND. EXTREMITIES: No LE edema or calf tenderness. NEURO: Awake and alert. A/P Problem List: (1) HER2-positive carcinoma of right breast ICD Code: C50.911 - Malignant neoplasm of unspecified site of right female breast (2) Deep venous thrombosis of left upper extremity ICD Code: I82.622 - Acute embolism and thrombosis of deep veins of left upper extremity Assessment and Plan 52-year-old female with left upper extremity DVT in the context of chemotherapy for breast cancer. Schizophrenia Treatment per psychiatry LUE DVT Continue Lovenox therapeutic dose Appreciate Heme/Onc consult HER 2 shirley positive R breast CA Oncology following; on week 10 of Taxol. Planning for additional two weeks then surgery Herceptin/Perjeta is continued Q 3 weeks next dose due 08/18/17. Goal Herceptin and Perjeta to continue for 52 weeks- which will be completed as outpatient. Surgery consulted for likely modified radical mastectomy to be done in two weeks Left 2nd toe and right big toe cellulitis Resolved following 10 days course of Cefazolin + Keflex (07/25) Superficial excoriations/ wounds on left upper arm Improved, Bacitracin BID prn DVT prophylaxis Lovenox Maribell Stevenson MD Aug 12, 2017 16:05
[2017-08-12 18:00] VITALS: BP 121/58; PULSE 65; RESP 20; TEMP 98.7; O2SAT 96
[2017-08-12] MEDS ORDERED: PADIMATE (CHAPSTICK) 4.5 GM TUBE TOPICAL PRN (18:30)
[2017-08-12] MEDS: REMOVE OLD NICODERM (NICOTINE) PATCH T-DERMAL SCH (21:00)
[2017-08-13 06:07] VITALS: BP 128/78; PULSE 99; RESP 20; TEMP 97.8; O2SAT 95
[2017-08-13] MEDS: BACITRACIN TOP OINT 15 GM TUBE TOPICAL SCH ×2 (09:00→21:59)
[2017-08-13] MEDS: SODIUM CHLORIDE 0.9% FLUSH 10 ML FLUSH IV FLUSH SCH ×2 (09:00→21:00)
[2017-08-13] MEDS: HALOPERIDOL 5 MG TAB PO SCH ×2 (09:00→21:55)
[2017-08-13] MEDS: ENOXAPARIN SODIUM 100 MG/ML SYRINGE SQ SCH ×2 (09:38→21:55)
--- NOTE | 2017-08-13 09:44 | HHI.PYPN ---
Subjective Remarks Patient was seen today for psychiatric reevaluation. Patient was irritable, voicing that she doesn't want to have brain surgery in this institution, however , she was sensitive to de-escalation techniques. She denies suicidal and homicidal ideation, she denies visual and auditory hallucinations. The patient has been usually cooperative, calm, she has moment of disorganization, she is usually redirectable. Mental Status Examination Appearance: Disheveled Consciousness: Alert Orientation: Person, Place, Date/Time Motor Activity: Other (no abnormal motor movements noted) Speech: Unremarkable Language: Adequate Fund of Knowledge: Inadequate Attention and Concentration: Adequate Memory: Impaired Mood: Irritable Affect: Irritable Thought Process & Associations: Other ([place]) Thought Content: Bizarre thinking, Delusional Hallucination Type: None Delusion Type: Bizarre Suicidal Ideation: No Suicidal Plan: No Suicidal Intention: No Homicidal Ideation: No Homicidal Plan: No Homicidal Intention: No Insight: Poor Judgment: Poor Results Vitals/IOs Vital Signs Date Time Temp Pulse Resp B/P (MAP) Pulse Ox O2 Delivery O2 Flow Rate FiO2 08/13/17 06:07 97.8 99 20 128/78 (95) 95 Intake and Output 08/13/17 08/13/17 08/14/17 08:00 16:00 00:00 Output Total 5 ml Balance -5 ml Assessment & Plan Problem List: (1) Psychosis not due to substance or known physiological condition ICD Codes: F29 - Unspecified psychosis not due to a substance or known physiological condition Assessment & Plan: Continue current psychotropic regimen. Assessment & Plan Estimated LOS: days Justification for Cont. Inpt. Patient is acutely psychotic, she does to continue psychiatric hospitalization for stabilization. Palomo Pham MD Aug 13, 2017 09:44
--- NOTE | 2017-08-13 11:02 | HHI.PR ---
Subjective Remarks Pt seen and examined. Vitals reviewed. Pt is very repetitive and states I need to stay far away because she has the flu. She does not elaborate on more symptoms but when asked if she has CP, SOB, N/V, cough, or abdominal pain she denies. Objective Vital Signs Date Time Temp Pulse Resp B/P (MAP) Pulse Ox O2 Delivery O2 Flow Rate FiO2 08/13/17 06:07 97.8 99 20 128/78 (95) 95 08/12/17 18:00 98.7 65 20 121/58 (79) 96 I/O 08/12/17 08/12/17 08/12/17 08/13/17 08/13/17 08/13/17 07:00 15:00 23:00 07:00 15:00 23:00 Intake Total 240 ml 1360 ml Output Total 5 ml Balance 240 ml 1360 ml -5 ml Intake Oral 240 ml 1360 ml Output Urine Total 5 ml # Voids 1 4 # Bowel Movements 0 4 Result Diagram: 08/10/17 1428 08/10/17 1428 Objective Remarks GENERAL: WN, WD female laying comfortably in bed in NAD. SKIN: Warm and dry. HEENT: Pupils equal and round. MMM. NECK: Supple no tender LAD or JVD. CHEST: Port left chest. No overlying warmth or erythema. HEART: RRR no m/r/g. LUNGS: CTAB without wheezes or crackles. ABDOMEN: Soft, NT, ND. EXTREMITIES: No LE edema or calf tenderness. NEURO: Awake and alert. PSYCH: Repetitive. Confabulating. A/P Problem List: (1) HER2-positive carcinoma of right breast ICD Code: C50.911 - Malignant neoplasm of unspecified site of right female breast (2) Deep venous thrombosis of left upper extremity ICD Code: I82.622 - Acute embolism and thrombosis of deep veins of left upper extremity Assessment and Plan 52-year-old female with left upper extremity DVT in the context of chemotherapy for breast cancer. Schizophrenia Treatment per psychiatry LUE DVT Continue Lovenox therapeutic dose Appreciate Heme/Onc consult HER 2 shirley positive R breast CA Oncology following; on week 10 of Taxol. Planning for additional two weeks then surgery Herceptin/Perjeta is continued Q 3 weeks next dose due 08/18/17. Goal Herceptin and Perjeta to continue for 52 weeks- which will be completed as outpatient. Surgery consulted for likely modified radical mastectomy to be done in two weeks Left 2nd toe and right big toe cellulitis Resolved following 10 days course of Cefazolin + Keflex (07/25) Superficial excoriations/ wounds on left upper arm Improved, Bacitracin BID prn DVT prophylaxis Maribell Nolen MD Aug 13, 2017 11:02
[2017-08-13] MEDS: oxyCODONE/ACETAMINOPHEN 5 MG/325 MG TAB PO PRN (13:15)
[2017-08-13 18:08] VITALS: BP 129/61; PULSE 94; RESP 18; TEMP 97.4; O2SAT 98
[2017-08-13] MEDS: REMOVE OLD NICODERM (NICOTINE) PATCH T-DERMAL SCH (21:00)
[2017-08-13] MEDS: LORazepam 1 MG TAB PO PRN (21:58)
[2017-08-13] MEDS: ZOLPIDEM TARTRATE 5 MG TAB PO PRN (22:18)
[2017-08-14 05:07] VITALS: BP 128/69; PULSE 108; RESP 16; TEMP 98; O2SAT 96
[2017-08-14] MEDS: BACITRACIN TOP OINT 15 GM TUBE TOPICAL SCH ×2 (08:32→21:00)
[2017-08-14] MEDS: HALOPERIDOL 5 MG TAB PO SCH ×2 (08:32→22:36)
[2017-08-14] MEDS: SODIUM CHLORIDE 0.9% FLUSH 10 ML FLUSH IV FLUSH SCH ×2 (08:38→22:37)
[2017-08-14] MEDS: ENOXAPARIN SODIUM 100 MG/ML SYRINGE SQ SCH ×2 (08:39→22:35)
--- NOTE | 2017-08-14 16:53 | HHI.PYPN ---
Subjective Remarks Reviewed electronic medical record, labs, and discussed case with staff. Staff advises Monday will be patient's last chemo treatment. Patient states that she slept well last night but still reports a decreased appetite. She denies suicidal ideation, homicidal ideation, auditory or visual hallucinations. Follow-up evaluation occurred in patient room with nurse present. Patient found lying in bed asleep. She wakes to verbal stimuli, her speech slightly garbled but logical. Her appearance is disheveled. She reports her mood as being "okay". Her affect is blunted. Mental Status Examination Appearance: Disheveled Consciousness: Alert Orientation: Person, Place, Date/Time Motor Activity: Other (no abnormal motor movements noted) Speech: Unremarkable Language: Adequate Fund of Knowledge: Inadequate Attention and Concentration: Adequate Memory: Impaired Mood: Appropriate Affect: Blunt Thought Process & Associations: Other ([place]) Thought Content: Appropriate Hallucination Type: None Delusion Type: None Suicidal Ideation: No Suicidal Plan: No Suicidal Intention: No Homicidal Ideation: No Homicidal Plan: No Homicidal Intention: No Insight: Fair Judgment: Poor Results Vitals/IOs Vital Signs Date Time Temp Pulse Resp B/P (MAP) Pulse Ox O2 Delivery O2 Flow Rate FiO2 08/14/17 05:07 98.0 108 16 128/69 (88) 96 Intake and Output 08/14/17 08/14/17 08/15/17 08:00 16:00 00:00 Intake Total 480 ml 0 ml Balance 480 ml 0 ml Assessment & Plan Problem List: (1) Psychosis not due to substance or known physiological condition ICD Codes: F29 - Unspecified psychosis not due to a substance or known physiological condition Assessment & Plan Estimated LOS: Patient appears to be lucid today however she is reported to be delusional. Her final chemo treatment is on Monday. Awaiting acceptance from state inpatient facility. Justification for Cont. Inpt. Moving this patient to a lower level of care would likely result in decompensation at this time. Shanika Denney Aug 14, 2017 16:52
--- NOTE | 2017-08-14 16:53 | HHI.PR ---
Subjective Remarks incr n/v today. nonbloody. pt deneis abd pain. no cp or sob. Objective Vital Signs Date Time Temp Pulse Resp B/P (MAP) Pulse Ox O2 Delivery O2 Flow Rate FiO2 08/14/17 05:07 98.0 108 16 128/69 (88) 96 08/13/17 18:08 97.4 94 18 129/61 (83) 98 I/O 08/13/17 08/13/17 08/13/17 08/14/17 08/14/17 08/14/17 07:00 15:00 23:00 07:00 15:00 23:00 Intake Total 720 ml 720 ml 480 ml 0 ml Output Total 5 ml Balance -5 ml 720 ml 720 ml 480 ml 0 ml Intake Oral 720 ml 720 ml 480 ml 0 ml Output Urine Total 5 ml # Voids 4 3 2 # Bowel Movements 4 Result Diagram: 08/10/17 1428 08/10/17 1428 Objective Remarks GENERAL: Patient sitting up in bed. Appears comfortable. SKIN: Warm and dry. HEAD: Normocephalic. EYES: No scleral icterus. No injection or drainage. NECK: Supple, trachea midline. No JVD. CARDIOVASCULAR: Regular rate and rhythm without murmurs, gallops, or rubs. RESPIRATORY: Breath sounds equal bilaterally. No accessory muscle use. GASTROINTESTINAL: Abdomen soft, non-tender, nondistended. MUSCULOSKELETAL: No cyanosis, or edema. Erythema of right toe, mild. Some surrounding ecchymosis. BACK: Nontender without obvious deformity. No CVA tenderness. A/P Assessment and Plan 52-year-old female with left upper extremity DVT in the context of chemotherapy for breast cancer. //Schizophrenia Treatment per psychiatry //LUE DVT Continue Lovenox therapeutic dose Appreciate Heme/Onc consult //HER 2 shirley positive R breast CA Oncology following; on week 10 of Taxol. Planning for additional two weeks then surgery Herceptin/Perjeta is continued Q 3 weeks next dose due 08/18/17. Goal Herceptin and Perjeta to continue for 52 weeks- which will be completed as outpatient. Surgery consulted for likely modified radical mastectomy to be done in two weeks //Nausea and vomiting. Likely secondary to chemotherapy. = Start Zofran for nausea. Repeat labs pending //Left 2nd toe and right big toe cellulitis Resolved following 10 days course of Cefazolin + Keflex (07/25) //Superficial excoriations/ wounds on left upper arm Improved, Bacitracin BID prn /DVT prophylaxis Lovenox Discharge Planning We will continue to follow Brendan Wahl MD Aug 14, 2017 16:53
[2017-08-14] MEDS ORDERED: ONDANSETRON HCL 4 MG/2 ML VIAL IV PUSH PRN (17:00)
[2017-08-14 17:41] LABS: AUTOMATED NEUTROPHIL # 2.6 TH/MM3 (1.8-7.7); BASOPHIL % 0.3 % (0.0-2.0); EOSINOPHIL % 0.5 % (0.0-4.0); HEMATOCRIT 42.3 % (35.0-46.0); HEMOGLOBIN 14.6 GM/DL (11.6-15.3); LYMPH % 37.4 % (9.0-44.0); LYMPHOCYTE # 1.8 TH/MM3 (1.0-4.8); MEAN CELL VOLUME 89.8 FL (80.0-100.0); MEAN CORPUSCULAR HEMOGLOBIN 31.1 PG (27.0-34.0); MEAN CORPUSCULAR HGB CONC 34.6 % (32.0-36.0); MEAN PLATELET VOLUME 8.6 FL (7.0-11.0); MONO % 5.9 % (0.0-8.0); MONOCYTE # 0.3 TH/MM3 (0-0.9); NEUT % 55.9 % (16.0-70.0); PLATELET COUNT 293 TH/MM3 (150-450); RED BLOOD COUNT 4.71 MIL/MM3 (4.00-5.30); RED CELL DISTRIBUTION WIDTH 16.1 % (11.6-17.2); WHITE BLOOD COUNT 4.7 TH/MM3 (4.0-11.0)
[2017-08-14 18:07] VITALS: BP 112/67; PULSE 92; RESP 16; TEMP 98.2; O2SAT 94
[2017-08-14 18:30] LABS: ALBUMIN 3.2 GM/DL (3.4-5.0); ALKALINE PHOSPHATASE 72 U/L (45-117); ALT (GPT) 46 U/L (10-53); AST (GOT) 23 U/L (15-37); BICARBONATE 28.9 MEQ/L (21.0-32.0); BLOOD UREA NITROGEN 12 MG/DL (7-18); CALCIUM 8.9 MG/DL (8.5-10.1); CHLORIDE 99 MEQ/L (98-107); CREATININE 0.75 MG/DL (0.50-1.00); GLOMERULAR FILTRATION RATE 81 ML/MIN (>89); GLUCOSE,RANDOM 95 MG/DL (74-106); SODIUM (NA) 138 MEQ/L (136-145); TOTAL BILIRUBIN ADULT 1.3 MG/DL (0.2-1.0); TOTAL PROTEIN 6.8 GM/DL (6.4-8.2)
[2017-08-14] MEDS ORDERED: POTASSIUM CHLOR 10 MEQ PREMIX 100 ML IV SCH (20:30)
[2017-08-14] MEDS ORDERED: POTASSIUM CHLORIDE 10 MEQ CONTROLLED RELEASE TAB PO ONE (20:30)
[2017-08-14] MEDS: REMOVE OLD NICODERM (NICOTINE) PATCH T-DERMAL SCH (21:00)
[2017-08-14] MEDS: SODIUM CHLOR 0.9% 1000 ML INJ 1,000 ML IV SCH (22:38)
[2017-08-14] MEDS: POTASSIUM CHLOR 10 MEQ PREMIX 100 ML IV SCH (22:43)
[2017-08-15] MEDS: POTASSIUM CHLOR 10 MEQ PREMIX 100 ML IV SCH ×2 (00:02→01:06)
[2017-08-15] MEDS: SODIUM CHLOR 0.9% 1000 ML INJ 1,000 ML IV SCH ×2 (03:00→12:55)
[2017-08-15 06:00] VITALS: BP 133/69; PULSE 86; RESP 17; TEMP 97.9; O2SAT 95
[2017-08-15] MEDS: SODIUM CHLORIDE 0.9% FLUSH 10 ML FLUSH IV FLUSH SCH ×2 (09:00→21:36)
[2017-08-15] MEDS: ENOXAPARIN SODIUM 100 MG/ML SYRINGE SQ SCH ×2 (10:08→21:30)
[2017-08-15] MEDS: BACITRACIN TOP OINT 15 GM TUBE TOPICAL SCH ×2 (10:09→21:00)
[2017-08-15] MEDS: HALOPERIDOL 5 MG TAB PO SCH ×2 (10:09→21:30)
--- NOTE | 2017-08-15 12:53 | HHI.PYPN ---
Subjective Remarks Reviewed electronic medical record and discussed patient with staff. Nurse advises no changes overnight. Patient evaluated for follow-up in her room, lying in bed. She is disheveled and reports that she feels "good". She denies SI , HI, and auditory hallucinations. She does reports "I have visions, stuff that probably don't happen". She reports eating and sleeping well. Mental Status Examination Appearance: Disheveled Consciousness: Alert Orientation: Person, Place, Date/Time Motor Activity: Other (lying in bed) Speech: Unremarkable Language: Adequate Fund of Knowledge: Inadequate Attention and Concentration: Adequate Memory: Impaired Mood: Appropriate Affect: Blunt Thought Process & Associations: Other ([place]) Thought Content: Hallucinations Hallucination Type: Visual Delusion Type: None Suicidal Ideation: No Suicidal Plan: No Suicidal Intention: No Homicidal Ideation: No Homicidal Plan: No Homicidal Intention: No Insight: Fair Judgment: Poor Results Labs Test 08/14/17 16:56 08/15/17 08:53 White Blood Count 4.7 TH/MM3 Red Blood Count 4.71 MIL/MM3 Hemoglobin 14.6 GM/DL Hematocrit 42.3 % Mean Corpuscular Volume 89.8 FL Mean Corpuscular Hemoglobin 31.1 PG Mean Corpuscular Hemoglobin Concent 34.6 % Red Cell Distribution Width 16.1 % Platelet Count 293 TH/MM3 Mean Platelet Volume 8.6 FL Neutrophils (%) (Auto) 55.9 % Lymphocytes (%) (Auto) 37.4 % Monocytes (%) (Auto) 5.9 % Eosinophils (%) (Auto) 0.5 % Basophils (%) (Auto) 0.3 % Neutrophils # (Auto) 2.6 TH/MM3 Lymphocytes # (Auto) 1.8 TH/MM3 Monocytes # (Auto) 0.3 TH/MM3 Eosinophils # (Auto) 0.0 TH/MM3 Basophils # (Auto) 0.0 TH/MM3 CBC Comment DIFF FINAL Differential Comment Blood Urea Nitrogen 12 MG/DL Creatinine 0.75 MG/DL Random Glucose 95 MG/DL Total Protein 6.8 GM/DL Albumin 3.2 GM/DL Calcium Level 8.9 MG/DL Alkaline Phosphatase 72 U/L Aspartate Amino Transf (AST/SGOT) 23 U/L Alanine Aminotransferase (ALT/SGPT) 46 U/L Total Bilirubin 1.3 MG/DL Sodium Level 138 MEQ/L Potassium Level 2.9 MEQ/L 3.4 MEQ/L Chloride Level 99 MEQ/L Carbon Dioxide Level 28.9 MEQ/L Anion Gap 10 MEQ/L Estimat Glomerular Filtration Rate 81 ML/MIN Magnesium Level 1.8 MG/DL Vitals/IOs Vital Signs Date Time Temp Pulse Resp B/P (MAP) Pulse Ox O2 Delivery O2 Flow Rate FiO2 08/15/17 06:00 97.9 86 17 133/69 (90) 95 Intake and Output 08/15/17 08/15/17 08/16/17 08:00 16:00 00:00 Intake Total 240 ml 480 ml Balance 240 ml 480 ml Assessment & Plan Problem List: (1) Psychosis not due to substance or known physiological condition ICD Codes: F29 - Unspecified psychosis not due to a substance or known physiological condition Assessment & Plan Estimated LOS: Patient reports having visions. She continues to undergo treatment for her cancer. Discharge plans are in progress. Justification for Cont. Inpt. Moving patient to a lower level of care would result in decompensation. Shanika Denney Aug 15, 2017 12:53
[2017-08-15] MEDS ORDERED: POTASSIUM CHLORIDE 10 MEQ CONTROLLED RELEASE TAB PO ONE (16:00)
--- NOTE | 2017-08-15 16:00 | HHI.PR ---
Subjective Remarks Patient seen this morning around 11 AM. Says that nausea has resolved. Denies any chest pain or shortness of breath. Denies any normal pain. Says she is eating and drinking. Nurse confirms the patient is eating and drinking. Objective Vital Signs Date Time Temp Pulse Resp B/P (MAP) Pulse Ox O2 Delivery O2 Flow Rate FiO2 08/15/17 06:00 97.9 86 17 133/69 (90) 95 08/14/17 18:07 98.2 92 16 112/67 (82) 94 I/O 08/14/17 08/14/17 08/14/17 08/15/17 08/15/17 08/15/17 07:00 15:00 23:00 07:00 15:00 23:00 Intake Total 480 ml 0 ml 480 ml 240 ml 480 ml Balance 480 ml 0 ml 480 ml 240 ml 480 ml Intake Oral 480 ml 0 ml 480 ml 240 ml 480 ml # Voids 2 1 1 Result Diagram: 08/14/17 1656 08/15/17 0853 Objective Remarks GENERAL: Patient sitting up in bed. Appears comfortable. Appears comfortable. SKIN: Warm and dry. HEAD: Normocephalic. EYES: No scleral icterus. No injection or drainage. NECK: Supple, trachea midline. No JVD. CARDIOVASCULAR: Regular rate and rhythm without murmurs, gallops, or rubs. RESPIRATORY: Breath sounds equal bilaterally. No accessory muscle use. GASTROINTESTINAL: Abdomen soft, non-tender, nondistended. MUSCULOSKELETAL: No cyanosis, or edema. BACK: Nontender without obvious deformity. No CVA tenderness. A/P Assessment and Plan 52-year-old female with left upper extremity DVT in the context of chemotherapy for breast cancer. //Schizophrenia Treatment per psychiatry //LUE DVT Continue Lovenox therapeutic dose Appreciate Heme/Onc consult //HER 2 shirley positive R breast CA Oncology following; on week 10 of Taxol. Planning for additional two weeks then surgery Herceptin/Perjeta is continued Q 3 weeks next dose due 08/18/17. Goal Herceptin and Perjeta to continue for 52 weeks- which will be completed as outpatient. Surgery consulted for likely modified radical mastectomy to be done in two weeks -Patient's last chemotherapy on 08/25. Expect surgery can be done on 08/27 as per oncology //Nausea and vomiting. Likely secondary to chemotherapy. = Nausea improved on Zofran continue Zofran for nausea. Repeat labs pending. Discontinue IV fluids. Continue to monitor fluid status. //Left 2nd toe and right big toe cellulitis Resolved following 10 days course of Cefazolin + Keflex (07/25) //Superficial excoriations/ wounds on left upper arm Improved, Bacitracin BID prn //Hypokalemia. 2.9 yesterday. Now 3.4 after placement. Replaced again today. Recheck tomorrow. /DVT prophylaxis Lovenox Discharge Planning We will continue to follow Discharge Planning We will continue to follow Brendan Wahl MD Aug 15, 2017 16:00
[2017-08-15 19:06] VITALS: BP 113/60; PULSE 79; RESP 16; TEMP 98.2; O2SAT 97
[2017-08-15] MEDS: REMOVE OLD NICODERM (NICOTINE) PATCH T-DERMAL SCH (21:00)
[2017-08-16 05:23] VITALS: BP 128/73; PULSE 75; RESP 18; TEMP 97.5; O2SAT 98
[2017-08-16 07:40] LABS: AUTOMATED NEUTROPHIL # 2.8 TH/MM3 (1.8-7.7); BASOPHIL % 0.5 % (0.0-2.0); EOSINOPHIL # 0.1 TH/MM3 (0-0.4); HEMATOCRIT 37.3 % (35.0-46.0); HEMOGLOBIN 12.9 GM/DL (11.6-15.3); LYMPH % 31.7 % (9.0-44.0); LYMPHOCYTE # 1.5 TH/MM3 (1.0-4.8); MEAN CELL VOLUME 90.1 FL (80.0-100.0); MEAN CORPUSCULAR HEMOGLOBIN 31.2 PG (27.0-34.0); MEAN CORPUSCULAR HGB CONC 34.6 % (32.0-36.0); MEAN PLATELET VOLUME 8.3 FL (7.0-11.0); MONO % 5.9 % (0.0-8.0); MONOCYTE # 0.3 TH/MM3 (0-0.9); NEUT % 59.9 % (16.0-70.0); PLATELET COUNT 259 TH/MM3 (150-450); RED BLOOD COUNT 4.14 MIL/MM3 (4.00-5.30); RED CELL DISTRIBUTION WIDTH 15.7 % (11.6-17.2); WHITE BLOOD COUNT 4.7 TH/MM3 (4.0-11.0)
[2017-08-16 08:06] LABS: ALBUMIN 2.7 GM/DL (3.4-5.0); CREATININE 0.44 MG/DL (0.50-1.00); MAGNESIUM 1.8 MG/DL (1.5-2.5); PHOSPHORUS 2.8 MG/DL (2.5-4.9)
[2017-08-16] MEDS: SODIUM CHLORIDE 0.9% FLUSH 10 ML FLUSH IV FLUSH SCH ×2 (09:00→21:00)
[2017-08-16] MEDS: BACITRACIN TOP OINT 15 GM TUBE TOPICAL SCH ×2 (09:00→21:00)
[2017-08-16] MEDS: HALOPERIDOL 5 MG TAB PO SCH ×2 (09:00→21:23)
[2017-08-16] MEDS: ENOXAPARIN SODIUM 100 MG/ML SYRINGE SQ SCH ×2 (10:00→21:23)
[2017-08-16] MEDS ORDERED: POTASSIUM CHLORIDE 20 MEQ CONTROLLED RELEASE TAB PO ONE (11:35)
--- NOTE | 2017-08-16 11:35 | HHI.PYPN ---
Subjective Remarks Reviewed electronic medical record discussed case with staff. Patient continues to be compliant with medications. Speech is clear and organized. She reports that she slept well and her appetite is "so-so". She denies suicidal ideation, homicidal ideation, auditory hallucinations. She does endorse vague visual hallucinations. Her mood is fair, while her affect remains blunted. She continues to be followed by medical and her last reported cancer treatment will be on Monday. Mental Status Examination Appearance: Disheveled Consciousness: Alert Orientation: Person, Place, Date/Time Motor Activity: Other (lying in bed) Speech: Unremarkable Language: Adequate Fund of Knowledge: Inadequate Attention and Concentration: Adequate Memory: Impaired Mood: Appropriate Affect: Blunt Thought Process & Associations: Other ([place]) Thought Content: Hallucinations Hallucination Type: Visual ([place]) Delusion Type: None Suicidal Ideation: No Suicidal Plan: No Suicidal Intention: No Homicidal Ideation: No Homicidal Plan: No Homicidal Intention: No Insight: Fair Judgment: Poor Results Labs Test 08/16/17 07:15 White Blood Count 4.7 TH/MM3 Red Blood Count 4.14 MIL/MM3 Hemoglobin 12.9 GM/DL Hematocrit 37.3 % Mean Corpuscular Volume 90.1 FL Mean Corpuscular Hemoglobin 31.2 PG Mean Corpuscular Hemoglobin Concent 34.6 % Red Cell Distribution Width 15.7 % Platelet Count 259 TH/MM3 Mean Platelet Volume 8.3 FL Neutrophils (%) (Auto) 59.9 % Lymphocytes (%) (Auto) 31.7 % Monocytes (%) (Auto) 5.9 % Eosinophils (%) (Auto) 2.0 % Basophils (%) (Auto) 0.5 % Neutrophils # (Auto) 2.8 TH/MM3 Lymphocytes # (Auto) 1.5 TH/MM3 Monocytes # (Auto) 0.3 TH/MM3 Eosinophils # (Auto) 0.1 TH/MM3 Basophils # (Auto) 0.0 TH/MM3 CBC Comment DIFF FINAL Differential Comment Blood Urea Nitrogen 5 MG/DL Creatinine 0.44 MG/DL Random Glucose 90 MG/DL Albumin 2.7 GM/DL Calcium Level 8.0 MG/DL Phosphorus Level 2.8 MG/DL Magnesium Level 1.8 MG/DL Sodium Level 141 MEQ/L Potassium Level 3.4 MEQ/L Chloride Level 108 MEQ/L Carbon Dioxide Level 26.0 MEQ/L Anion Gap 7 MEQ/L Estimat Glomerular Filtration Rate 151 ML/MIN Vitals/IOs Vital Signs Date Time Temp Pulse Resp B/P (MAP) Pulse Ox O2 Delivery O2 Flow Rate FiO2 08/16/17 05:23 97.5 75 18 128/73 (91) 98 Intake and Output 08/16/17 08/16/17 08/17/17 08:00 16:00 00:00 Intake Total 240 ml Balance 240 ml Assessment & Plan Problem List: (1) Psychosis not due to substance or known physiological condition ICD Codes: F29 - Unspecified psychosis not due to a substance or known physiological condition Assessment & Plan Estimated LOS: Patient continues to be treated medically for cancer. Monday as her last scheduled treatment. Discharge planning is in progress. Justification for Cont. Inpt. Moving this patient to a lower level of care would likely result in decompensation at this time. Save discharge plan is being actively pursued. Shanika Denney Aug 16, 2017 11:35
--- NOTE | 2017-08-16 14:59 | PD.TTN ---
Patient Problems 1. Discharge planning 2. Medication compliance 3. Knowledge deficit 4. Lack of coping skills Progress Toward Goals Provider Present: Dr. Alex Enamorado Provider Input: 08/16/2017;Patient is a state wait, has one more treatment and will be able to be transferred to [facility] 08/07/2017; patient is a state wait or will require a structure discharge environment 07/24/2017; per Dr. Enamorado, patient continues to display inappropriate behavior, requesting redirection with thoughts/mood. 07/19/17 remains in need for stabilization and is lacking insight and remains at high risk for decompensation 07/17/17 patient is receiving chemo and presenting different than last hospitalization which she was manic, now she is withdrawn and limited in talking and interacting 07/14/17 patient came from independent living at [facility] and appears not being able to return there - she can benefit from an FIFI placement Nurse(s) Present: ARIEL Flower Nurse(s) Input: 08/16/2017: patient is eating taking her medication, has no motivation and isolate most of the day. Patient is eating and very redirectable Psychiatric Counselors Present: Amanda Silva LCSW, Fernanda Garrett, [facility] Psych Therapist Input: 08/16/2017; patient is enouraged with meals, mood, and group participation 08/07/2017; patient is encouraged with meals, mood and medication 07/24/2017; patient is encouraged with mood, meals and medication compliance 07/19/17 still erratic, mood unstable, disorganized thoughts continue , needs at least FIFI if not more care 07/17/17 will work on SNF facilities and refer patient today, she remains uncooperative with this therapist 07/14/17 patient refused to talk to this counselor twice yesterday, pretending to sleep she is reported by nurses to remain in bed without interacting and irritable Group Spec/RT/OT/DONATO Present: Onel Devi OT Group Spec/RT/OT/DONATO Input: 08/16/2017; patient will not participate with groups or activities 08/07/2017; patient is unable to participate with groups or activities 07/24/2017; patient continues to be unable to participate with groups and activities 07/19/17 cannot tolerate groups and non reality based thoughts 07/17/17 does not attend group and does not tolerate 07/14/17 patient does not attend groups and does not tolerate groups Documentation Scribe: Fernanda Dupree [facility] Aug 16, 2017 14:59
[2017-08-16 18:00] VITALS: BP 121/62; PULSE 79; RESP 17; TEMP 98.5; O2SAT 96
[2017-08-16] MEDS: REMOVE OLD NICODERM (NICOTINE) PATCH T-DERMAL SCH (21:00)
--- NOTE | 2017-08-16 22:09 | HHI.PR ---
Subjective Remarks Patient seen today around 11 AM. Says she is feeling all right. Denies any chest pain or shortness of breath. Denies any nausea or vomiting. Denies any constipation. Objective Vital Signs Date Time Temp Pulse Resp B/P (MAP) Pulse Ox O2 Delivery O2 Flow Rate FiO2 08/16/17 18:00 98.5 79 17 121/62 (81) 96 08/16/17 05:23 97.5 75 18 128/73 (91) 98 I/O 08/15/17 08/15/17 08/15/17 08/16/17 08/16/17 08/16/17 07:00 15:00 23:00 07:00 15:00 23:00 Intake Total 240 ml 480 ml 960 ml 960 ml 240 ml Balance 240 ml 480 ml 960 ml 960 ml 240 ml Intake Oral 240 ml 480 ml 960 ml 960 ml 240 ml # Voids 1 1 Result Diagram: 08/16/17 0715 08/16/17 0715 Objective Remarks GENERAL: Patient sitting up in bed. Appears comfortable. SKIN: Warm and dry. HEAD: Normocephalic. EYES: No scleral icterus. No injection or drainage. NECK: Supple, trachea midline. No JVD. CARDIOVASCULAR: Regular rate and rhythm without murmurs, gallops, or rubs. RESPIRATORY: Breath sounds equal bilaterally. No accessory muscle use. GASTROINTESTINAL: Abdomen soft, non-tender, nondistended. MUSCULOSKELETAL: No cyanosis, or edema. BACK: Nontender without obvious deformity. No CVA tenderness. A/P Assessment and Plan 08/16. Patient seen and examined.potassium 3.4. Replaced. otherwise continue current management. 52-year-old female with left upper extremity DVT in the context of chemotherapy for breast cancer. //Schizophrenia Treatment per psychiatry //LUE DVT Continue Lovenox therapeutic dose Appreciate Heme/Onc consult //HER 2 shirley positive R breast CA Oncology following; on week 10 of Taxol. Planning for additional two weeks then surgery Herceptin/Perjeta is continued Q 3 weeks next dose due 08/18/17. Goal Herceptin and Perjeta to continue for 52 weeks- which will be completed as outpatient. Surgery consulted for likely modified radical mastectomy to be done in two weeks -Patient's last chemotherapy on 08/25. Expect surgery can be done on 3/18 as per oncology //Nausea and vomiting. Likely secondary to chemotherapy. = Nausea improved on Zofran continue Zofran for nausea. Repeat labs pending. Discontinue IV fluids. Continue to monitor fluid status. //Left 2nd toe and right big toe cellulitis Resolved following 10 days course of Cefazolin + Keflex (07/25) //Superficial excoriations/ wounds on left upper arm Improved, Bacitracin BID prn //Hypokalemia. 2.9 yesterday. Now 3.4 after placement. Replaced again today. Recheck tomorrow. /DVT prophylaxis Lovenox Discharge Planning We will continue to follow Discharge Planning We will continue to follow Brendan Wahl MD Aug 16, 2017 22:09
[2017-08-17 06:00] VITALS: BP 104/59; PULSE 71; RESP 16; TEMP 98; O2SAT 98
[2017-08-17 07:57] LABS: CREATININE 0.51 MG/DL (0.50-1.00)
[2017-08-17] MEDS: oxyCODONE/ACETAMINOPHEN 5 MG/325 MG TAB PO PRN (08:42)
[2017-08-17] MEDS: HALOPERIDOL 5 MG TAB PO SCH ×2 (08:42→21:00)
[2017-08-17] MEDS: BACITRACIN TOP OINT 15 GM TUBE TOPICAL SCH ×2 (09:00→21:00)
[2017-08-17] MEDS: SODIUM CHLORIDE 0.9% FLUSH 10 ML FLUSH IV FLUSH SCH ×2 (09:00→21:00)
[2017-08-17] MEDS: ENOXAPARIN SODIUM 100 MG/ML SYRINGE SQ SCH (09:41)
--- NOTE | 2017-08-17 10:33 | HHI.PR ---
Subjective Remarks No overnight events, no chest pain, no shortness of breath. Afebrile. Discussed with nursing. Objective Vitals Vital Signs Date Time Temp Pulse Resp B/P (MAP) Pulse Ox O2 Delivery O2 Flow Rate FiO2 08/17/17 06:00 98.0 71 16 104/59 (74) 98 08/16/17 18:00 98.5 79 17 121/62 (81) 96 I/O 08/16/17 08/16/17 08/16/17 08/17/17 08/17/17 08/17/17 07:00 15:00 23:00 07:00 15:00 23:00 Intake Total 960 ml 960 ml Balance 960 ml 960 ml Intake Oral 960 ml 960 ml # Voids 1 1 Result Diagram: 08/16/17 0715 08/17/17 0650 Objective Remarks Not in distress, well-nourished, looks stated age PERRL, pink conjunctiva without injection, anicteric Positive lymph nodes right axillary Normal rate and regular rhythm, no murmurs gallops or rubs appreciated. Clear to auscultation and symmetric bilaterally, normal respiratory effort. Normal bowel sounds, soft, non-tender, nondistended, no guarding. Extremities without clubbing, cyanosis, or edema. AAO x3, no cranial nerve deficits, moves all 4 extremities, no focal neurologic deficits Procedures CHEMO A/P Problem List: (1) HER2-positive carcinoma of right breast ICD Code: C50.911 - Malignant neoplasm of unspecified site of right female breast (2) Deep venous thrombosis of left upper extremity ICD Code: I82.622 - Acute embolism and thrombosis of deep veins of left upper extremity (3) Psychosis not due to substance or known physiological condition ICD Code: F29 - Unspecified psychosis not due to a substance or known physiological condition Assessment and Plan 52-year-old female with left upper extremity DVT in the context of chemotherapy for breast cancer. //Schizophrenia Treatment per psychiatry //LUE DVT Continue Lovenox therapeutic dose, switch to oral, will discuss with oncology. Appreciate Heme/Onc consult //HER 2 shirley positive R breast CA Oncology following; on week 10 of Taxol. Planning for additional two weeks then surgery Herceptin/Perjeta is continued Q 3 weeks next dose due 08/18/17. Goal Herceptin and Perjeta to continue for 52 weeks- which will be completed as outpatient. Surgery consulted for likely modified radical mastectomy to be done in two weeks -Patient's last chemotherapy on 08/25. Expect surgery can be done on 08/27 as per oncology //Nausea and vomiting. Likely secondary to chemotherapy. = Nausea improved on Zofran continue Zofran for nausea. BMP normal. //Left 2nd toe and right big toe cellulitis Resolved following 10 days course of Cefazolin + Keflex (07/25) //Superficial excoriations/ wounds on left upper arm Improved, Bacitracin BID prn //Hypokalemia. 2.9 yesterday.Replaced yesterday, resolved today. /DVT prophylaxis Lovenox Discharge Planning Discharged once cleared by psychiatry. Vu Delvalle MD Aug 17, 2017 10:33
--- NOTE | 2017-08-17 11:03 | RADRPT ---
EXAM DATE/TIME: 08/17/2017 09:44 [facility] COMPARISON: US ARM RIGHT, July 13, 2017, 9:19. INDICATIONS : Follow up: Right axilla lymph node. MEDICAL HISTORY : Hearing loss. Anxiety. Right breast cancer. Chemotherapy. Psychosis. SURGICAL HISTORY : Jaw surgery. ENCOUNTER: Initial ACUITY: 3 days PAIN SCORE: 0/10 LOCATION: Right axilla. AREA EVALUATED: Right axilla. FINDINGS: MASSES: Previously seen abnormal right axillary lymph node measuring upwards of 1.7 cm in diameter is now nor mal in caliber measuring a maximum of 8 mm. FLUID COLLECTIONS: None. OTHER: Negative. CONCLUSION: 1. Enlarged right axillary lymph node seen previously continues to decrease in size, previously measu ring 1.7 cm in diameter and now normal in size measuring a maximum of 8 mm in diameter. 2. No new lesions identified Manjinder Jones MD on August 17, 2017 at 10:58 Board Certified Radiologist. This report was verified electronically.
[2017-08-17 11:10] LABS: DIRECT BILIRUBIN ADULT 0.1 MG/DL (0.0-0.2)
[2017-08-17 11:35] LABS: INDIRECT BILIRUBIN 0.6 MG/DL (0.0-0.8); TOTAL BILIRUBIN ADULT 0.7 MG/DL (0.2-1.0)
--- NOTE | 2017-08-17 13:59 | PD.ONC.PN ---
Subjective Subjective Remarks Tired today. Objective Data Date Time Temp Pulse Resp B/P (MAP) Pulse Ox O2 Delivery O2 Flow Rate FiO2 08/17/17 06:00 98.0 71 16 104/59 (74) 98 08/16/17 18:00 98.5 79 17 121/62 (81) 96 Result Diagram: 08/16/17 0715 08/17/17 0650 Laboratory Results Laboratory Tests Test 08/17/17 06:50 Blood Urea Nitrogen 7 MG/DL Creatinine 0.51 MG/DL Random Glucose 94 MG/DL Calcium Level 8.0 MG/DL Sodium Level 141 MEQ/L Potassium Level 3.7 MEQ/L Chloride Level 106 MEQ/L Carbon Dioxide Level 28.0 MEQ/L Anion Gap 7 MEQ/L Estimat Glomerular Filtration Rate 127 ML/MIN Total Bilirubin 0.7 MG/DL Direct Bilirubin 0.1 MG/DL Indirect Bilirubin 0.6 MG/DL Vitamin B12 Level 356 PG/ML Imaging Studies Last 24 hours Impressions Upper Extremity Ultrasound 08/17/17 0000 Signed Impressions: Service Date/Time: August 09:44 - CONCLUSION: 1. Enlarged right axillary lymph node seen previously continues to decrease in size, previously measuring 1.7 cm in diameter and now normal in size measuring a maximum of 8 mm in diameter. 2. No new lesions identified Manjinder Jones MD Administered Medications Medications (Trade) Dose Ordered Sig/Renard Route PRN Reason Start Time Stop Time Status Last Admin Dose Admin Zolpidem Tartrate (Ambien) 5 mg HS PRN PO INSOMNIA 07/11/17 21:15 08/13/17 22:18 Lorazepam (Ativan) 1 mg Q6H PRN PO MODERATE TO SEVERE ANXIETY 07/11/17 21:15 08/13/17 21:58 Acetaminophen (Tylenol) 650 mg Q4H PRN PO Pain 1-5 or Temp >101F 07/11/17 21:15 07/17/17 20:42 Al Hydrox/Mg Hydrox/Simethicone (Mag-Al Plus Susp Liq) 30 ml Q6H PRN PO DYSPEPSIA 07/11/17 21:15 08/09/17 20:48 Oxycodone/ Acetaminophen (Percocet 5-325 Mg) 1 tab Q6H PRN PO PAIN 6-10 07/11/17 21:15 08/17/17 08:42 Sodium Chloride (NS Flush) 2 ml BID IV FLUSH 07/15/17 21:00 08/17/17 09:00 Bacitracin (Baciguent Oint) 1 applic Q12HR TOPICAL 07/26/17 21:00 08/15/17 10:09 Heparin Sodium (Porcine) (Heparin Central Flush) 500 units UNSCH IV FLUSH 07/28/17 23:45 08/16/17 16:04 Haloperidol (Haldol) 10 mg DAILY PO 08/08/17 09:00 08/17/17 08:42 Haloperidol (Haldol) 15 mg HS PO 08/07/17 21:00 08/16/17 21:23 Objective Remarks GENERAL: Well-nourished, well-developed patient. SKIN: Warm and dry. HEAD: Alopecia but still has hair. EYES: No scleral icterus. No injection or drainage. NECK: Supple, trachea midline. No JVD or lymphadenopathy. LYMPHATIC: No adenopathy. R axillary LN no longer palpable. R breast mass unchanged, not larger, nipple more normal. CARDIOVASCULAR: Regular rate and rhythm without murmurs. RESPIRATORY: Breath sounds equal bilaterally. No accessory muscle use. GASTROINTESTINAL: Abdomen soft, non-tender, nondistended. EXTREMITIES: L arm swelling decrease. MUSCULOSKELETAL: Adequate muscle tone. NEUROLOGICAL: No obvious focal deficit. Awake, alert, and oriented x3. PSYCHIATRIC: Appropriate mood and affect; insight and judgment normal. Assessment/Plan Problem List: (1) HER2-positive carcinoma of right breast ICD Codes: C50.911 - Malignant neoplasm of unspecified site of right female breast Plan: 07/14: continue weekly therapy with Taxol. does not need Herceptin this week, was given q3 weeks dosing in clinic. 07/20/17. Continue weekly Taxol. Next week next dose Herceptin/Perjeta/Taxol is due. We discussed goal typically to give neoadjuvant therapy for 12 weeks or best response. She is tolerating chemotherapy well. She seems to understand the need to treat her cancer. 07/21: Taxol today. monitor for adverse reaction. 07/27: obtain labs, prepare for Herceptin/Perjeta and Taxol tomorrow. 07/28: Herceptin/Perjeta/Taxol today. tolerating chemotherapy. 08/03: plan for weekly taxol tomorrow. 08/04: proceed with weekly taxol. after finishing 12 weeks of chemotherapy, will plan for mastectomy, then reconstruction. 08/10: plan to give taxol tomorrow 08/11: proceed with week 10 of taxol. plan for two addition weeks of taxol, then surgery. 08/17/17. Plan for Week 11 of Taxol, C4 Herceptin/Pertuzumab tomorrow. Check US R axilla since I am no longer able to feel LN. (2) Deep venous thrombosis of left upper extremity ICD Codes: I82.622 - Acute embolism and thrombosis of deep veins of left upper extremity Plan: --on therapeutic dose Lovenox 08/17/17. Discussed w/ Dr. Delvalle. Convert to once daily dosing of LMWH. Anticipate bridge to Coumadin after surgery. We will discuss with Dr. Sewell risks/benefit to switch port to other side , however she will have surgery R mastectomy and LAND. We may need to maintain anticoagulation of port on L side. Assessment 52y/o female with locally advanced HER2/shirley over expressing ER positive right breast cancer currently admitted for psychosis. 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 h/o Chemotherapy induced anemia. plan on 12 weekly cycles of Taxol. She has had chemo 06/08/17, 06/15/17, 06/22/17, 06/29/17, 07/07/17, 07/14/17, 07/21/17 , 07/28/17, 08/04/17, 08/10/17 is week number 10, 08/18/17 is week 11, 08/25/17 is week 12. Herceptin/Perjeta is continued Q 3 weeks next dose due 08/18/17. Goal Herceptin and Perjeta to continue for 52 weeks- which will be completed as outpatient. Plan 1. Lovenox once daily dosing 2. Chemo tomorrow 08/17/17- Herceptin/Pertuzumab/Taxol 3. Expect surgery after bike week. Alexa Villareal MD Aug 17, 2017 13:59
--- NOTE | 2017-08-17 14:58 | HHI.PYPN ---
Subjective Chief Complaint: Psychosis Remarks Reviewed electronic medical record, labs, discuss case with staff. Follow-up conducted with patient in [place]. She reports that she slept well and her appetite has been "up and down". Her speech is clear, organized, logical today. Patient advises that she has not "been feeling too good" and admits that it is likely due to her chemo treatment. She was headed to the [facility] and [facility] activity when I encountered her and expressed that she "just needed to get out of bed". Her mood is good and her affect remains blunted. Mental Status Examination Appearance: Disheveled Consciousness: Alert Orientation: Person, Place, Date/Time Motor Activity: Other (lying in bed) Speech: Unremarkable Language: Adequate Fund of Knowledge: Inadequate Attention and Concentration: Adequate Memory: Impaired Mood: Appropriate Affect: Blunt Thought Process & Associations: Other ([place]) Thought Content: Hallucinations Hallucination Type: Visual (Vague) Delusion Type: None Suicidal Ideation: No Suicidal Plan: No Suicidal Intention: No Homicidal Ideation: No Homicidal Plan: No Homicidal Intention: No Insight: Fair Judgment: Poor Results Labs Test 08/17/17 06:50 Blood Urea Nitrogen 7 MG/DL Creatinine 0.51 MG/DL Random Glucose 94 MG/DL Calcium Level 8.0 MG/DL Sodium Level 141 MEQ/L Potassium Level 3.7 MEQ/L Chloride Level 106 MEQ/L Carbon Dioxide Level 28.0 MEQ/L Anion Gap 7 MEQ/L Estimat Glomerular Filtration Rate 127 ML/MIN Total Bilirubin 0.7 MG/DL Direct Bilirubin 0.1 MG/DL Indirect Bilirubin 0.6 MG/DL Vitamin B12 Level 356 PG/ML Vitals/IOs Vital Signs Date Time Temp Pulse Resp B/P (MAP) Pulse Ox O2 Delivery O2 Flow Rate FiO2 08/17/17 06:00 98.0 71 16 104/59 (35) 98 Assessment & Plan Problem List: (1) Psychosis not due to substance or known physiological condition ICD Codes: F29 - Unspecified psychosis not due to a substance or known physiological condition Assessment & Plan Estimated LOS: Per staff, final chemo treatment is scheduled for Monday. Discharge planning continues. Justification for Cont. Inpt. Patient's counselor continues to work on a safe discharge plan. Moving her to a lower level of care at this time would likely result in decompensation. Shanika Denney Aug 17, 2017 14:58
[2017-08-17] MEDS: REMOVE OLD NICODERM (NICOTINE) PATCH T-DERMAL SCH (21:00)
[2017-08-18 06:35] VITALS: BP 112/77; PULSE 68; RESP 16; TEMP 98; O2SAT 99
[2017-08-18 06:36] VITALS: BP 100/63; PULSE 85; RESP 17; TEMP 98.3; O2SAT 97
[2017-08-18] MEDS: HALOPERIDOL 5 MG TAB PO SCH ×2 (09:11→23:51)
[2017-08-18] MEDS: BACITRACIN TOP OINT 15 GM TUBE TOPICAL SCH ×2 (09:12→21:00)
[2017-08-18] MEDS: SODIUM CHLORIDE 0.9% FLUSH 10 ML FLUSH IV FLUSH SCH ×3 (09:12→21:11)
[2017-08-18] MEDS: ENOXAPARIN SODIUM 100 MG/ML SYRINGE SQ SCH (09:14)
[2017-08-18] MEDS ORDERED: SODIUM CHLOR 0.9% IV ONE ×4 (12:00→19:00)
[2017-08-18] MEDS ORDERED: PERTUZUMAB IV ONE ×2 (12:00→16:00)
--- NOTE | 2017-08-18 12:54 | HHI.PR ---
Subjective Remarks No overnight events, no complaints. No issues. Denies any chest pain, shortness of breath, or left arm pain. Objective Vitals Vital Signs Date Time Temp Pulse Resp B/P (MAP) Pulse Ox O2 Delivery O2 Flow Rate FiO2 08/18/17 06:36 98.3 85 17 100/63 (75) 97 08/18/17 06:35 98.0 68 16 112/77 (89) 99 I/O 08/17/17 08/17/17 08/17/17 08/18/17 08/18/17 08/18/17 07:00 15:00 23:00 07:00 15:00 23:00 Intake Total 240 ml 0 ml 1080 ml Balance 240 ml 0 ml 1080 ml Intake Oral 240 ml 0 ml 1080 ml # Voids 1 0 0 Result Diagram: 08/16/17 0715 08/17/17 0650 Objective Remarks Not in distress, PERRL, pink conjunctiva without injection, anicteric Positive lymph nodes right axillary Normal rate and regular rhythm, no murmurs gallops or rubs appreciated. Clear to auscultation and symmetric bilaterally, normal respiratory effort. Normal bowel sounds, soft, non-tender, nondistended, no guarding. Extremities without clubbing, cyanosis, or edema. AAO x3, no cranial nerve deficits, moves all 4 extremities, no focal neurologic deficits Procedures CHEMO A/P Problem List: (1) HER2-positive carcinoma of right breast ICD Code: C50.911 - Malignant neoplasm of unspecified site of right female breast (2) Deep venous thrombosis of left upper extremity ICD Code: I82.622 - Acute embolism and thrombosis of deep veins of left upper extremity (3) Psychosis not due to substance or known physiological condition ICD Code: F29 - Unspecified psychosis not due to a substance or known physiological condition Assessment and Plan 52-year-old female with left upper extremity DVT in the context of chemotherapy for breast cancer. //Schizophrenia Treatment per psychiatry //LUE DVT Continue Lovenox therapeutic dose, discussed with oncology, anticipating surgery on 08/27, keep on Lovenox at 1 mg/kg per day. Appreciate Heme/Onc consult //HER 2 shirley positive R breast CA Oncology following; on week 10 of Taxol. Planning for additional two weeks then surgery Herceptin/Perjeta is continued Q 3 weeks next dose due 08/18/17. Goal Herceptin and Perjeta to continue for 52 weeks- which will be completed as outpatient. Surgery consulted for likely modified radical mastectomy to be done in two weeks -Patient's last chemotherapy on 08/25. Continue chemotherapy per oncology. Expect surgery can be done on 08/27 as per oncology //Nausea and vomiting. Likely secondary to chemotherapy. = Nausea improved on Zofran continue Zofran for nausea. BMP normal. //Left 2nd toe and right big toe cellulitis Resolved following 10 days course of Cefazolin + Keflex (07/25) //Superficial excoriations/ wounds on left upper arm Improved, Bacitracin BID prn //Hypokalemia-resolved /DVT prophylaxis Lovenox Discharge Planning Discharge once cleared by psychiatry. Vu Delvalle MD Aug 18, 2017 12:54
--- NOTE | 2017-08-18 14:03 | PD.ONC.PN ---
Subjective Subjective Remarks Afebrile overnight. Patient resting in bed in nad. No complaints. ready for chemotherapy today. denies hot flashes or nausea. Objective Data Date Time Temp Pulse Resp B/P (MAP) Pulse Ox O2 Delivery O2 Flow Rate FiO2 08/18/17 06:36 98.3 85 17 100/63 (75) 97 08/18/17 06:35 98.0 68 16 112/77 (89) 99 08/18/17 08/18/17 08/18/17 07:00 15:00 23:00 Intake Total 0 ml 1080 ml Balance 0 ml 1080 ml Result Diagram: 08/16/17 0715 08/17/17 0650 Administered Medications Medications (Trade) Dose Ordered Sig/Renard Route PRN Reason Start Time Stop Time Status Last Admin Dose Admin Zolpidem Tartrate (Ambien) 5 mg HS PRN PO INSOMNIA 07/11/17 21:15 08/13/17 22:18 Lorazepam (Ativan) 1 mg Q6H PRN PO MODERATE TO SEVERE ANXIETY 07/11/17 21:15 08/13/17 21:58 Acetaminophen (Tylenol) 650 mg Q4H PRN PO Pain 1-5 or Temp >101F 07/11/17 21:15 07/17/17 20:42 Al Hydrox/Mg Hydrox/Simethicone (Mag-Al Plus Susp Liq) 30 ml Q6H PRN PO DYSPEPSIA 07/11/17 21:15 08/09/17 20:48 Oxycodone/ Acetaminophen (Percocet 5-325 Mg) 1 tab Q6H PRN PO PAIN 6-10 07/11/17 21:15 08/17/17 08:42 Sodium Chloride (NS Flush) 2 ml BID IV FLUSH 07/15/17 21:00 08/18/17 09:20 Bacitracin (Baciguent Oint) 1 applic Q12HR TOPICAL 07/26/17 21:00 08/15/17 10:09 Heparin Sodium (Porcine) (Heparin Central Flush) 500 units UNSCH IV FLUSH 07/28/17 23:45 08/16/17 16:04 Haloperidol (Haldol) 10 mg DAILY PO 08/08/17 09:00 08/18/17 09:11 Haloperidol (Haldol) 15 mg HS PO 08/07/17 21:00 08/17/17 21:00 Enoxaparin Sodium (Lovenox Inj) 90 mg DAILY SQ 08/18/17 09:00 08/18/17 09:14 Objective Remarks GENERAL: Middle aged female, lying in bed resting. SKIN: Warm and dry. HEAD: Normocephalic. EYES: No injection or drainage. NECK: Supple, trachea midline. CARDIOVASCULAR: Regular rate and rhythm RESPIRATORY: Breath sounds equal bilaterally. No accessory muscle use. GASTROINTESTINAL: Abdomen soft, non-tender, nondistended. EXTREMITIES: No cyanosis, or edema. NEUROLOGICAL: awake and alert, normal speech. moving extremities. Assessment/Plan Problem List: (1) HER2-positive carcinoma of right breast ICD Codes: C50.911 - Malignant neoplasm of unspecified site of right female breast Plan: 07/14: continue weekly therapy with Taxol. does not need Herceptin this week, was given q3 weeks dosing in clinic. 07/20/17. Continue weekly Taxol. Next week next dose Herceptin/Perjeta/Taxol is due. We discussed goal typically to give neoadjuvant therapy for 12 weeks or best response. She is tolerating chemotherapy well. She seems to understand the need to treat her cancer. 07/21: Taxol today. monitor for adverse reaction. 07/27: obtain labs, prepare for Herceptin/Perjeta and Taxol tomorrow. 07/28: Herceptin/Perjeta/Taxol today. tolerating chemotherapy. 08/03: plan for weekly taxol tomorrow. 08/04: proceed with weekly taxol. after finishing 12 weeks of chemotherapy, will plan for mastectomy, then reconstruction. 08/10: plan to give taxol tomorrow 08/11: proceed with week 10 of taxol. plan for two addition weeks of taxol, then surgery. 08/17/17. Plan for Week 11 of Taxol, C4 Herceptin/Pertuzumab tomorrow. Check US R axilla since I am no longer able to feel LN. 08/18/17: proceed with week 11 Taxol today. give Cycle 4 Herceptin and Pertuzumab today as well. (2) Deep venous thrombosis of left upper extremity ICD Codes: I82.622 - Acute embolism and thrombosis of deep veins of left upper extremity Plan: --on therapeutic dose Lovenox 08/17/17. Discussed w/ Dr. Delvalle. Convert to once daily dosing of LMWH. Anticipate bridge to Coumadin after surgery. We will discuss with Dr. Sewell risks/benefit to switch port to other side , however she will have surgery R mastectomy and LAND. We may need to maintain anticoagulation of port on L side. 08/18: continue once daily dosing of Lovenox. will bridge to coumadin after surgery. Assessment 52y/o female with locally advanced HER2/shirley over expressing ER positive right breast cancer currently admitted for psychosis. 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 h/o Chemotherapy induced anemia. plan on 12 weekly cycles of Taxol. She has had chemo 06/08/17, 06/15/17, 06/22/17, 06/29/17, 07/07/17, 07/14/17, 07/21/17 , 07/28/17, 08/04/17, 08/10/17 is week number 10, 08/18/17 is week 11, 08/25/17 is week 12. Herceptin/Perjeta is continued Q 3 weeks next dose due 08/18/17. Goal Herceptin and Perjeta to continue for 52 weeks- which will be completed as outpatient. Plan 1. proceed with chemotherapy today, Herceptin, Taxol, Pertuzumab 2. monitor CBC, CMP 3. continue Lovenox. Attending Statement The exam, history, and the medical decision-making described in the above note were completed with the assistance of the mid-level provider. I reviewed and agree with the findings presented. I attest that I had a [id number] encounter with the patient on the same day, and personally performed and documented my assessment and findings in the medical record. No c/o chemo today Tolerating well. surgery soon. Idalia Disla Aug 18, 2017 14:03 Med Dumont MD Aug 19, 2017 00:15
--- NOTE | 2017-08-18 14:08 | HHI.PYPN ---
Subjective Chief Complaint: Psychosis Remarks Reviewed electronic medical record, labs, and discussed patient with staff. Patient was up and about today showered, awaiting chemotherapy treatment. In reviewing Dr. Delvalle's note today, patient's final chemo treatment is actually on August 25, and she is likely to have a radical mastectomy performed on the . Advised patient's counselor of this update, he will continue to work on ultimate placement with [facility]. Patient was resting quietly in bed. Staff reports no changes in her condition. Her mood remains good and her affect blunted. She denies SI, HI, auditory and visual hallucinations. Mental Status Examination Appearance: Appropriate Consciousness: Alert Orientation: Person, Place, Date/Time Motor Activity: Other (lying in bed) Speech: Unremarkable Language: Adequate Fund of Knowledge: Inadequate Attention and Concentration: Adequate Memory: Impaired Mood: Appropriate Affect: Blunt Thought Process & Associations: Other ([place]) Thought Content: Hallucinations Hallucination Type: Visual (Vague) Delusion Type: None Suicidal Ideation: No Suicidal Plan: No Suicidal Intention: No Homicidal Ideation: No Homicidal Plan: No Homicidal Intention: No Insight: Fair Judgment: Poor Results Vitals/IOs Vital Signs Date Time Temp Pulse Resp B/P (MAP) Pulse Ox O2 Delivery O2 Flow Rate FiO2 08/18/17 06:36 98.3 85 17 100/63 (75) 97 Intake and Output 08/18/17 08/18/17 08/19/17 08:00 16:00 00:00 Intake Total 480 ml 600 ml Balance 480 ml 600 ml Assessment & Plan Problem List: (1) Psychosis not due to substance or known physiological condition ICD Codes: F29 - Unspecified psychosis not due to a substance or known physiological condition Assessment & Plan Estimated LOS: Patient continues with her chemotherapy treatment. Per medical doctors no she is likely to have a radical mastectomy on 08/27. She continues to have confusion and disorganized thoughts. She is unable to live on her own her counselor continues to work for a safe placement with the [facility] facility. Justification for Cont. Inpt. Moving this patient to a lower level of care would result in decompensation. Shanika Denney Aug 18, 2017 14:08
[2017-08-18] MEDS: LORazepam 1 MG TAB PO PRN ×2 (15:51→23:27)
[2017-08-18 15:53] VITALS: BP 127/76; PULSE 79; RESP 16; TEMP 98.6; O2SAT 97
[2017-08-18] MEDS ORDERED: SODIUM CHLOR 0.9% 250 ML INJ 250 ML IV ONE ×3 (16:00→19:00)
[2017-08-18] MEDS ORDERED: ACETAMINOPHEN 325 MG TAB PO ONE (16:30)
[2017-08-18] MEDS ORDERED: diphenhydrAMINE HCL 50 MG CAP PO ONE (16:30)
[2017-08-18] MEDS ORDERED: TRASTUZUMAB IV ONE (17:00)
[2017-08-18] MEDS ORDERED: DEXAMETHASONE INJ 20 MG in SODIUM CHLORIDE 0.9% INJ 50 ML IV ONE (18:00)
[2017-08-18] MEDS ORDERED: diphenhydrAMINE HCL 25 MG CAP PO ONE (18:00)
[2017-08-18] MEDS ORDERED: FAMOTIDINE 20 MG TAB PO ONE (18:00)
[2017-08-18] MEDS ORDERED: PACLITAXEL IV ONE (19:00)
[2017-08-18] MEDS: REMOVE OLD NICODERM (NICOTINE) PATCH T-DERMAL SCH (20:11)
[2017-08-18 21:06] VITALS: BP 116/67; PULSE 82; RESP 18; TEMP 98.6; O2SAT 97
[2017-08-18 23:54] VITALS: BP 117/78; PULSE 79; RESP 18; TEMP 98.2; O2SAT 97
[2017-08-19 05:33] VITALS: BP 115/55; PULSE 84; RESP 17; TEMP 97.6; O2SAT 95
--- NOTE | 2017-08-19 08:24 | HHI.PYPN ---
Subjective Chief Complaint: Psychosis Remarks Patient seen in her room sitting in chair reading in the sunlight from of her window. Nurse Abi present throughout session. Patient discussed with nurse. Patient calm pleasant with me having no complaints today. Does denies suicidality homicidality voices or visions. She is compliant with her medication. Is aware of the upcoming procedures planned for related to her cancer Review of Systems Except as stated in HPI: all other systems reviewed are Neg Mental Status Examination Appearance: Appropriate Consciousness: Alert Orientation: Person, Place, Date/Time Motor Activity: Other (lying in bed) Speech: Unremarkable Language: Adequate Fund of Knowledge: Inadequate Attention and Concentration: Adequate Memory: Impaired Mood: Appropriate Affect: Blunt Thought Process & Associations: Other ([place]) Thought Content: Hallucinations Hallucination Type: Visual (Vague) Delusion Type: None Suicidal Ideation: No Suicidal Plan: No Suicidal Intention: No Homicidal Ideation: No Homicidal Plan: No Homicidal Intention: No Insight: Fair Judgment: Poor Results Vitals/IOs Vital Signs Date Time Temp Pulse Resp B/P (MAP) Pulse Ox O2 Delivery O2 Flow Rate FiO2 08/19/17 05:33 97.6 84 17 115/55 (75) 95 Intake and Output 08/19/17 08/19/17 08/20/17 08:00 16:00 00:00 Intake Total 720 ml Balance 720 ml Assessment & Plan Problem List: (1) Psychosis not due to substance or known physiological condition ICD Codes: F29 - Unspecified psychosis not due to a substance or known physiological condition Assessment & Plan Estimated LOS: days patient calm cooperative pleasant times somewhat guarded at times seems little bit confusing. For now continue treatment Justification for Cont. Inpt. At this time patient will decompensate of placed in a lower level of care Discharge Planning This these to be determined following chemotherapy and surgery Ricco Neff MD Aug 19, 2017 08:24
[2017-08-19] MEDS: HALOPERIDOL 5 MG TAB PO SCH ×2 (09:00→20:17)
[2017-08-19] MEDS: SODIUM CHLORIDE 0.9% FLUSH 10 ML FLUSH IV FLUSH SCH ×2 (09:00→19:15)
[2017-08-19] MEDS: ENOXAPARIN SODIUM 100 MG/ML SYRINGE SQ SCH (09:00)
[2017-08-19] MEDS: BACITRACIN TOP OINT 15 GM TUBE TOPICAL SCH ×2 (09:00→19:16)
[2017-08-19] MEDS: oxyCODONE/ACETAMINOPHEN 5 MG/325 MG TAB PO PRN (09:30)
--- NOTE | 2017-08-19 13:37 | PD.ONC.PN ---
Subjective Subjective Remarks Afebrile Patient tolerated chemo okay yesterday No swelling Objective Data Date Time Temp Pulse Resp B/P (MAP) Pulse Ox O2 Delivery O2 Flow Rate FiO2 08/19/17 05:33 97.6 84 17 115/55 (75) 95 08/18/17 23:54 98.2 79 18 117/78 (91) 97 08/18/17 21:06 98.6 82 18 116/67 (83) 97 08/18/17 15:53 98.6 79 16 127/76 (93) 97 08/19/17 08/19/17 08/19/17 07:00 15:00 23:00 Intake Total 240 ml 480 ml Balance 240 ml 480 ml Result Diagram: 08/16/17 0715 08/17/17 0650 Administered Medications Medications (Trade) Dose Ordered Sig/Renard Route PRN Reason Start Time Stop Time Status Last Admin Dose Admin Zolpidem Tartrate (Ambien) 5 mg HS PRN PO INSOMNIA 07/11/17 21:15 08/13/17 22:18 Lorazepam (Ativan) 1 mg Q6H PRN PO MODERATE TO SEVERE ANXIETY 07/11/17 21:15 08/18/17 23:27 Acetaminophen (Tylenol) 650 mg Q4H PRN PO Pain 1-5 or Temp >101F 07/11/17 21:15 07/17/17 20:42 Al Hydrox/Mg Hydrox/Simethicone (Mag-Al Plus Susp Liq) 30 ml Q6H PRN PO DYSPEPSIA 07/11/17 21:15 08/09/17 20:48 Oxycodone/ Acetaminophen (Percocet 5-325 Mg) 1 tab Q6H PRN PO PAIN 6-10 07/11/17 21:15 08/19/17 09:30 Sodium Chloride (NS Flush) 2 ml BID IV FLUSH 07/15/17 21:00 08/18/17 21:11 Bacitracin (Baciguent Oint) 1 applic Q12HR TOPICAL 07/26/17 21:00 08/15/17 10:09 Heparin Sodium (Porcine) (Heparin Central Flush) 500 units UNSCH IV FLUSH 07/28/17 23:45 08/19/17 01:33 Haloperidol (Haldol) 10 mg DAILY PO 08/08/17 09:00 08/19/17 09:00 Haloperidol (Haldol) 15 mg HS PO 08/07/17 21:00 08/18/17 23:51 Enoxaparin Sodium (Lovenox Inj) 90 mg DAILY SQ 08/18/17 09:00 08/19/17 09:00 Objective Remarks GENERAL: Middle aged female, walking the halls of the psych floor in no obvious distress SKIN: Warm and dry. HEAD: Normocephalic. EYES: No injection or drainage. NECK: Supple, trachea midline. CARDIOVASCULAR: Regular rate and rhythm RESPIRATORY: Breath sounds equal bilaterally. No accessory muscle use. GASTROINTESTINAL: Abdomen soft, non-tender, nondistended. EXTREMITIES: No cyanosis, or edema. NEUROLOGICAL: Moving all extremities. Normal speech. No obvious focal deficit. Assessment/Plan Problem List: (1) HER2-positive carcinoma of right breast ICD Codes: C50.911 - Malignant neoplasm of unspecified site of right female breast Plan: 07/14: continue weekly therapy with Taxol. does not need Herceptin this week, was given q3 weeks dosing in clinic. 07/20/17. Continue weekly Taxol. Next week next dose Herceptin/Perjeta/Taxol is due. We discussed goal typically to give neoadjuvant therapy for 12 weeks or best response. She is tolerating chemotherapy well. She seems to understand the need to treat her cancer. 07/21: Taxol today. monitor for adverse reaction. 07/27: obtain labs, prepare for Herceptin/Perjeta and Taxol tomorrow. 07/28: Herceptin/Perjeta/Taxol today. tolerating chemotherapy. 08/03: plan for weekly taxol tomorrow. 08/04: proceed with weekly taxol. after finishing 12 weeks of chemotherapy, will plan for mastectomy, then reconstruction. 08/10: plan to give taxol tomorrow 08/11: proceed with week 10 of taxol. plan for two addition weeks of taxol, then surgery. 08/17/17. Plan for Week 11 of Taxol, C4 Herceptin/Pertuzumab tomorrow. Check US R axilla since I am no longer able to feel LN. 08/18/17: proceed with week 11 Taxol today. give Cycle 4 Herceptin and Pertuzumab today as well. (2) Deep venous thrombosis of left upper extremity ICD Codes: I82.622 - Acute embolism and thrombosis of deep veins of left upper extremity Plan: --on therapeutic dose Lovenox 08/17/17. Discussed w/ Dr. Delvalle. Convert to once daily dosing of LMWH. Anticipate bridge to Coumadin after surgery. We will discuss with Dr. Sewell risks/benefit to switch port to other side , however she will have surgery R mastectomy and LAND. We may need to maintain anticoagulation of port on L side. 08/18: continue once daily dosing of Lovenox. will bridge to coumadin after surgery. Assessment 52y/o female with locally advanced HER2/shirley over expressing ER positive right breast cancer currently admitted for psychosis. 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 h/o Chemotherapy induced anemia. plan on 12 weekly cycles of Taxol. She has had chemo 06/08/17, 06/15/17, 06/22/17, 06/29/17, 07/07/17, 07/14/17, 07/21/17 , 07/28/17, 08/04/17, 08/10/17 is week number 10, 08/18/17 is week 11, 08/25/17 is week 12. Herceptin/Perjeta is continued Q 3 weeks next dose due 08/18/17. Goal Herceptin and Perjeta to continue for 52 weeks- which will be completed as outpatient. Plan 1. Continue Lovenox for DVT of left upper extremity 2. Explained to patient she has 1 more cycle of weekly Taxol prior to surgery. 3. Check labs on Monday. Attending Statement The exam, history, and the medical decision-making described in the above note were completed with the assistance of the mid-level provider. I reviewed and agree with the findings presented. I attest that I had a [id number] encounter with the patient on the same day, and personally performed and documented my assessment and findings in the medical record. No c/o Had chemo yesterday. Tolerated well. Await surgery. Continue Lovenox. D/W ARIEL. Cheryl Jimenez Aug 19, 2017 13:37 Med Dumont MD Aug 20, 2017 00:11
[2017-08-19 18:00] VITALS: BP 135/58; PULSE 59; RESP 17; TEMP 97.8; O2SAT 96
[2017-08-19] MEDS: REMOVE OLD NICODERM (NICOTINE) PATCH T-DERMAL SCH (19:15)
[2017-08-20 05:57] VITALS: BP 105/58; PULSE 70; RESP 15; TEMP 97.8; O2SAT 97
--- NOTE | 2017-08-20 08:58 | HHI.PYPN ---
Subjective Chief Complaint: Psychosis Remarks Patient seen in her room, patient laying quietly in bed with covers to her chin , nurse turned present throughout session, chart review, patient compliant medications, patient discussed with nurse. Patient continues calm but confused and psychotic but no behavior problems. Schedule for continued chemotherapy. Review of Systems Except as stated in HPI: all other systems reviewed are Neg Mental Status Examination Appearance: Appropriate Consciousness: Alert Orientation: Person, Place, Date/Time Motor Activity: Other (lying in bed) Speech: Unremarkable Language: Adequate Fund of Knowledge: Inadequate Attention and Concentration: Adequate Memory: Impaired Mood: Appropriate Affect: Blunt Thought Process & Associations: Other ([place]) Thought Content: Hallucinations Hallucination Type: Visual (Vague) Delusion Type: None Suicidal Ideation: No Suicidal Plan: No Suicidal Intention: No Homicidal Ideation: No Homicidal Plan: No Homicidal Intention: No Insight: Fair Judgment: Poor Results Vitals/IOs Vital Signs Date Time Temp Pulse Resp B/P (MAP) Pulse Ox O2 Delivery O2 Flow Rate FiO2 08/20/17 05:57 97.8 70 15 105/58 (74) 97 Intake and Output 08/20/17 08/20/17 08/21/17 08:00 16:00 00:00 Intake Total 240 ml Balance 240 ml Assessment & Plan Problem List: (1) Psychosis not due to substance or known physiological condition ICD Codes: F29 - Unspecified psychosis not due to a substance or known physiological condition Assessment & Plan Estimated LOS: days patient continues calm cooperative somewhat confused and psychotic. For now continue treatment Justification for Cont. Inpt. At this time patient will decompensate of placed in the lower level of care Discharge Planning Hallucinations the determined Ricco Neff MD Aug 20, 2017 08:58
[2017-08-20] MEDS: SODIUM CHLORIDE 0.9% FLUSH 10 ML FLUSH IV FLUSH SCH ×2 (09:00→21:00)
[2017-08-20] MEDS: BACITRACIN TOP OINT 15 GM TUBE TOPICAL SCH ×2 (09:00→21:00)
[2017-08-20] MEDS: ENOXAPARIN SODIUM 100 MG/ML SYRINGE SQ SCH (09:54)
[2017-08-20] MEDS: HALOPERIDOL 5 MG TAB PO SCH ×2 (09:54→21:51)
[2017-08-20 16:07] VITALS: BP 108/52; PULSE 64; RESP 16; TEMP 98.1; O2SAT 99
[2017-08-20] MEDS: REMOVE OLD NICODERM (NICOTINE) PATCH T-DERMAL SCH (21:00)
[2017-08-21 05:10] VITALS: BP 103/58; PULSE 76; RESP 16; TEMP 97.3; O2SAT 97
[2017-08-21 07:59] LABS: AUTOMATED NEUTROPHIL # 3.6 TH/MM3 (1.8-7.7); BASOPHIL % 0.6 % (0.0-2.0); EOSINOPHIL # 0.1 TH/MM3 (0-0.4); EOSINOPHIL % 1.2 % (0.0-4.0); HEMATOCRIT 36.8 % (35.0-46.0); HEMOGLOBIN 12.7 GM/DL (11.6-15.3); LYMPH % 33.2 % (9.0-44.0); MEAN CORPUSCULAR HGB CONC 34.4 % (32.0-36.0); MONO % 5.2 % (0.0-8.0); MONOCYTE # 0.3 TH/MM3 (0-0.9); NEUT % 59.8 % (16.0-70.0); PLATELET COUNT 289 TH/MM3 (150-450); RED BLOOD COUNT 4.09 MIL/MM3 (4.00-5.30); RED CELL DISTRIBUTION WIDTH 15.8 % (11.6-17.2)
[2017-08-21] MEDS: SODIUM CHLORIDE 0.9% FLUSH 10 ML FLUSH IV FLUSH SCH ×2 (09:00→21:00)
[2017-08-21] MEDS: BACITRACIN TOP OINT 15 GM TUBE TOPICAL SCH ×2 (09:00→21:00)
[2017-08-21] MEDS: HALOPERIDOL 5 MG TAB PO SCH ×2 (10:39→21:11)
[2017-08-21] MEDS: ENOXAPARIN SODIUM 100 MG/ML SYRINGE SQ SCH (10:39)
--- NOTE | 2017-08-21 14:58 | HHI.PYPN ---
Subjective Chief Complaint: Psychosis Remarks Reviewed electronic medical record, labs, discuss case with staff. Follow-up evaluation performed in the day room. Patient advises that she slept well and her appetite is "okay". She has no complaints today. Advised that she was told she would have 1 more treatment and surgery on the . She denies any thoughts of harming herself or others, visual or auditory hallucinations. Denies any side effects from the medications. However, she does become irritable with questioning and states, "I wish you people would stop asking me the stuff". Mental Status Examination Appearance: Appropriate Consciousness: Alert Orientation: Person, Place, Date/Time Motor Activity: Other (lying in bed) Speech: Unremarkable Language: Adequate Fund of Knowledge: Inadequate Attention and Concentration: Adequate Memory: Impaired Mood: Appropriate Affect: Blunt Thought Process & Associations: Other ([place]) Thought Content: Hallucinations Hallucination Type: Visual (Vague) Delusion Type: None Suicidal Ideation: No Suicidal Plan: No Suicidal Intention: No Homicidal Ideation: No Homicidal Plan: No Homicidal Intention: No Insight: Fair Judgment: Poor Results Labs Test 08/21/17 06:58 White Blood Count 6.0 TH/MM3 Red Blood Count 4.09 MIL/MM3 Hemoglobin 12.7 GM/DL Hematocrit 36.8 % Mean Corpuscular Volume 90.0 FL Mean Corpuscular Hemoglobin 31.0 PG Mean Corpuscular Hemoglobin Concent 34.4 % Red Cell Distribution Width 15.8 % Platelet Count 289 TH/MM3 Mean Platelet Volume 8.0 FL Neutrophils (%) (Auto) 59.8 % Lymphocytes (%) (Auto) 33.2 % Monocytes (%) (Auto) 5.2 % Eosinophils (%) (Auto) 1.2 % Basophils (%) (Auto) 0.6 % Neutrophils # (Auto) 3.6 TH/MM3 Lymphocytes # (Auto) 2.0 TH/MM3 Monocytes # (Auto) 0.3 TH/MM3 Eosinophils # (Auto) 0.1 TH/MM3 Basophils # (Auto) 0.0 TH/MM3 CBC Comment DIFF FINAL Differential Comment Vitals/IOs Vital Signs Date Time Temp Pulse Resp B/P (MAP) Pulse Ox O2 Delivery O2 Flow Rate FiO2 08/21/17 05:10 97.3 76 16 103/58 (73) 97 Intake and Output 08/21/17 08/21/1718 08:00 16:00 00:00 Intake Total 960 ml 360 ml Balance 960 ml 360 ml Assessment & Plan Problem List: (1) Psychosis not due to substance or known physiological condition ICD Codes: F29 - Unspecified psychosis not due to a substance or known physiological condition Assessment & Plan Estimated LOS: Patient has one more chemotherapy treatment to be followed by a radical mastectomy on August 27. Her counselor is working on a safe discharge plan once she is medically cleared. Justification for Cont. Inpt. Placing this patient in a lower level of care would result in decompensation. Shanika Denney Aug 21, 2017 14:58
[2017-08-21 17:15] VITALS: BP 114/58; PULSE 85; RESP 17; TEMP 98.2; O2SAT 95
[2017-08-21] MEDS: REMOVE OLD NICODERM (NICOTINE) PATCH T-DERMAL SCH (21:00)
[2017-08-22 05:42] VITALS: BP 82/53; PULSE 76; RESP 16; TEMP 97.2; O2SAT 94
[2017-08-22 05:59] VITALS: BP 86/52
[2017-08-22 06:26] VITALS: BP 90/51
[2017-08-22] MEDS: SODIUM CHLORIDE 0.9% FLUSH 10 ML FLUSH IV FLUSH SCH ×2 (09:00→21:00)
[2017-08-22] MEDS: HALOPERIDOL 5 MG TAB PO SCH ×2 (09:00→21:13)
[2017-08-22] MEDS: BACITRACIN TOP OINT 15 GM TUBE TOPICAL SCH ×3 (09:00→21:12)
[2017-08-22] MEDS: ENOXAPARIN SODIUM 100 MG/ML SYRINGE SQ SCH (09:01)
--- NOTE | 2017-08-22 16:15 | HHI.PYPN ---
Subjective Chief Complaint: Psychosis Remarks Reviewed electronic medical record and discussed patient's case with staff. Her nurse touch base with oncology today and was advised that the last chemo treatment will be on Monday however, they do not anticipate her surgery until 3 weeks after that. Patient's follow-up was conducted in her room. Patient reports feeling "fine". Her speech is clear and organized. Her mood is irritable today, and she states that she does not want to "answer anymore questions". Patient denies any physical complaints. Per staff, patient has remained compliant with treatment plan. Discussed case with counselor who will start working on the process to get surgical consents signed by then an KINJAL guardian. Mental Status Examination Appearance: Appropriate Consciousness: Alert Orientation: Person, Place, Date/Time Motor Activity: Other (lying in bed) Speech: Unremarkable Language: Adequate Fund of Knowledge: Inadequate Attention and Concentration: Adequate Memory: Impaired Mood: Appropriate Affect: Blunt Thought Process & Associations: Other ([place]) Thought Content: Hallucinations Hallucination Type: Visual (Vague) Delusion Type: None Suicidal Ideation: No Suicidal Plan: No Suicidal Intention: No Homicidal Ideation: No Homicidal Plan: No Homicidal Intention: No Insight: Fair Judgment: Poor Results Vitals/IOs Vital Signs Date Time Temp Pulse Resp B/P (MAP) Pulse Ox O2 Delivery O2 Flow Rate FiO2 08/22/17 06:26 90/51 (64) 08/22/17 05:42 97.2 76 16 94 Intake and Output 08/22/17 08/22/17 08/23/17 08:00 16:00 00:00 Intake Total 960 ml 780 ml Balance 960 ml 780 ml Assessment & Plan Problem List: (1) Psychosis not due to substance or known physiological condition ICD Codes: F29 - Unspecified psychosis not due to a substance or known physiological condition Assessment & Plan Estimated LOS: Patient is awaiting final chemotherapy treatment and surgery. Due to her mental illness she still lacks capacity her ability to provide self- care. Justification for Cont. Inpt. Removing this patient to a lower level of care would result in decompensation. Shanika Denney Aug 22, 2017 16:15
[2017-08-22 18:37] VITALS: BP 105/50; PULSE 82; RESP 16; TEMP 98.8; O2SAT 95
[2017-08-22] MEDS: REMOVE OLD NICODERM (NICOTINE) PATCH T-DERMAL SCH (21:00)
[2017-08-22] MEDS: LORazepam 1 MG TAB PO PRN (21:13)
[2017-08-23 06:00] VITALS: BP 129/72; PULSE 89; RESP 17; TEMP 97.5; O2SAT 100
[2017-08-23] MEDS: HALOPERIDOL 5 MG TAB PO SCH ×2 (08:52→20:19)
[2017-08-23] MEDS: ENOXAPARIN SODIUM 100 MG/ML SYRINGE SQ SCH (08:53)
[2017-08-23] MEDS: BACITRACIN TOP OINT 15 GM TUBE TOPICAL SCH ×2 (08:53→20:20)
[2017-08-23] MEDS: SODIUM CHLORIDE 0.9% FLUSH 10 ML FLUSH IV FLUSH SCH ×2 (08:53→20:18)
--- NOTE | 2017-08-23 09:49 | PD.TTN ---
Patient Problems 1. Discharge planning 2. Medication compliance 3. Knowledge deficit 4. Lack of coping skills Progress Toward Goals Provider Present: Dr. Alex Enamorado Provider Input: 08/23/2017: Patient has one remaining Chemo treatment and within three weeks she will have surgery 08/21/2017; Patient is a state wait, still disorganized, requires stable appropriate dc placement for medical and mental health purpose. 08/16/2017;Patient is a state wait, has one more treatment and will be able to be transferred to [facility] 08/07/2017; patient is a state wait or will require a structure discharge environment 07/24/2017; per Dr. Enamorado, patient continues to display inappropriate behavior, requesting redirection with thoughts/mood. 07/19/17 remains in need for stabilization and is lacking insight and remains at high risk for decompensation 07/17/17 patient is receiving chemo and presenting different than last hospitalization which she was manic, now she is withdrawn and limited in talking and interacting 07/14/17 patient came from independent living at [facility] and appears not being able to return there - she can benefit from an FIFI placement Nurse(s) Present: RN Nurse(s) Input: 08/23/2017; patient is compliant with medication, meals requires some motivation and coaching 08/21/2017; patient is eating and taking her medication, needs prompting and encouragement 08/16/2017: patient is eating taking her medication, has no motivation and isolate most of the day. Patient is eating and very redirectable Psychiatric Counselors Present: Amanda Silva LCSW, Fernanda Garrett, [facility] Psych Therapist Input: 08/23/2017; counselor will call previous facilities to inquire if they would accept patient after surgery is complete 08/21/2017: counselor will encourage patient with activities 08/16/2017; patient is enouraged with meals, mood, and group participation 08/07/2017; patient is encouraged with meals, mood and medication 07/24/2017; patient is encouraged with mood, meals and medication compliance 07/19/17 still erratic, mood unstable, disorganized thoughts continue , needs at least FIFI if not more care 07/17/17 will work on SNF facilities and refer patient today, she remains uncooperative with this therapist 07/14/17 patient refused to talk to this counselor twice yesterday, pretending to sleep she is reported by nurses to remain in bed without interacting and irritable Group Spec/RT/OT/DONATO Present: Onel Devi, OT Group Spec/RT/OT/DONATO Input: 08/23/2017: Patient has been attending groups; however she is easily overwhelmed; complete simple task 08/16/2017; patient will not participate with groups or activities 08/07/2017; patient is unable to participate with groups or activities 07/24/2017; patient continues to be unable to participate with groups and activities 07/19/17 cannot tolerate groups and non reality based thoughts 07/17/17 does not attend group and does not tolerate 07/14/17 patient does not attend groups and does not tolerate groups Documentation Scribe: Fernanda Dupree [facility] Aug 23, 2017 09:49
--- NOTE | 2017-08-23 10:16 | HHI.PYPN ---
Subjective Chief Complaint: Psychosis Remarks Patient seen for follow, chart reviewed. Discussion nursing reported the patient has slept, was noted to be somewhat irritable with her room last evening. Patient was found lying on the unit noted B, cooperative. Patient initially that she did not sleep well despite having a roommate that was loud, aware that she has her last chemotherapy this coming Monday with planned radical mastectomy in 3 weeks. Patient was somewhat concerned about finding her daughter stating that she had been wondering what happened to her as she last spoke to her in 2014. Patient denies any physical complaints at this time , denies any perceptional disturbances continues to have this preoccupation with her missing daughter and at times some paranoid delusions. Review of Systems Except as stated in HPI: all other systems reviewed are Neg Mental Status Examination Appearance: Appropriate Consciousness: Alert Orientation: Person, Place, Date/Time Motor Activity: Other (lying in bed) Speech: Unremarkable Language: Adequate Fund of Knowledge: Inadequate Attention and Concentration: Adequate Memory: Impaired Mood: Appropriate Affect: Blunt Thought Process & Associations: Other (Only) Thought Content: Hallucinations Hallucination Type: None Delusion Type: Bizarre Suicidal Ideation: No Suicidal Plan: No Suicidal Intention: No Homicidal Ideation: No Homicidal Plan: No Homicidal Intention: No Insight: Fair Judgment: Poor Results Vitals/IOs Vital Signs Date Time Temp Pulse Resp B/P (MAP) Pulse Ox O2 Delivery O2 Flow Rate FiO2 08/23/17 06:00 97.5 89 17 129/72 (91) 100 Intake and Output 08/23/17 08/23/17 08/24/17 08:00 16:00 00:00 Intake Total 720 ml Balance 720 ml Assessment & Plan Problem List: (1) Psychosis not due to substance or known physiological condition ICD Codes: F29 - Unspecified psychosis not due to a substance or known physiological condition Assessment & Plan Patient this time continues to have occasional perseveration on bizarre delusions but has been compliant with treatment, no perceptual disturbances, good behavioral control. Patient will continue current treatment, continue recommendations as per primary medical team. Patient will have less of her chemotherapy this Monday with planned radical mastectomy in 3 weeks. Continue to monitor with behavior. Discharge planning in progress. Justification for Cont. Inpt. At risk of further decompensation at lower level of care Discharge Planning To be determined Yadiel Enamorado MD Aug 23, 2017 10:16
[2017-08-23 18:00] VITALS: BP 110/58; PULSE 74; RESP 16; TEMP 98.1; O2SAT 96
[2017-08-23] MEDS: REMOVE OLD NICODERM (NICOTINE) PATCH T-DERMAL SCH (20:19)
[2017-08-23] MEDS: ZOLPIDEM TARTRATE 5 MG TAB PO PRN (20:22)
[2017-08-24 06:00] VITALS: BP 99/61; PULSE 87; RESP 18; TEMP 98.4; O2SAT 95
[2017-08-24] MEDS: HALOPERIDOL 5 MG TAB PO SCH ×2 (08:47→20:10)
[2017-08-24] MEDS: ENOXAPARIN SODIUM 100 MG/ML SYRINGE SQ SCH (08:48)
[2017-08-24] MEDS: BACITRACIN TOP OINT 15 GM TUBE TOPICAL SCH ×2 (08:48→20:09)
[2017-08-24] MEDS: SODIUM CHLORIDE 0.9% FLUSH 10 ML FLUSH IV FLUSH SCH ×2 (08:48→20:09)
--- NOTE | 2017-08-24 10:29 | HHI.PYPN ---
Subjective Chief Complaint: Psychosis Remarks Patient seen for follow, chart reviewed. Discussion nursing staff reported the patient to be pleasant but somewhat preoccupied with finding her daughter . Patient was found lying hospital bed noted, cooperative. Patient was focused on her worry of finding her daughter stating that she believes she is missing and has not spoken to her since 3 years ago. Patient also was denying any physical symptoms aware that she has chemotherapy session tomorrow to complete course with planned radical mastectomy in 3 weeks. Patient denies any perceptual disturbances at this time but it is noted to be somewhat preservative having bizarre delusions but none today. Review of Systems Except as stated in HPI: all other systems reviewed are Neg Mental Status Examination Appearance: Appropriate Consciousness: Alert Orientation: Person, Place, Date/Time Motor Activity: Other (lying in bed) Speech: Unremarkable Language: Adequate Fund of Knowledge: Inadequate Attention and Concentration: Adequate Memory: Impaired Mood: Appropriate Affect: Blunt Thought Process & Associations: Other ([place]) Thought Content: Hallucinations (Denies today), Preoccupations (With finding her daughter) Hallucination Type: None Delusion Type: Bizarre Suicidal Ideation: No Suicidal Plan: No Suicidal Intention: No Homicidal Ideation: No Homicidal Plan: No Homicidal Intention: No Insight: Fair Judgment: Poor Results Vitals/IOs Vital Signs Date Time Temp Pulse Resp B/P (MAP) Pulse Ox O2 Delivery O2 Flow Rate FiO2 08/24/17 06:00 98.4 87 18 99/61 (74) 95 Intake and Output 08/24/17 08/24/17 08/25/17 08:00 16:00 00:00 Intake Total 240 ml Balance 240 ml Assessment & Plan Problem List: (1) Psychosis not due to substance or known physiological condition ICD Codes: F29 - Unspecified psychosis not due to a substance or known physiological condition Assessment & Plan Patient this time continues to be somewhat perseverative on daughter who she perceives has been missing for 3 years. We will continue current treatment. Patient planned for final chemotherapy tomorrow with upcoming radical mastectomy within 3 weeks. Continue recognitions per medical team. Continue to encourage patient with a personal hygiene as well as participating in groups and activities on the unit. Discharge planning in progress. Justification for Cont. Inpt. At risk of further decompensation at lower level of care [facility] Aug 24, 2017 10:29
--- NOTE | 2017-08-24 14:50 | PD.ONC.PN ---
Subjective Subjective Remarks Afebrile overnight. Patient resting in bed in nad. feels tired today. denies hot flashes or nausea. worried about where her daughter is. states she hasn't seen her since 2014. Objective Data Date Time Temp Pulse Resp B/P (MAP) Pulse Ox O2 Delivery O2 Flow Rate FiO2 08/24/17 06:00 98.4 87 18 99/61 (74) 95 08/23/17 18:00 98.1 74 16 110/58 (75) 96 08/24/17 08/24/17 08/24/17 07:00 15:00 23:00 Intake Total 240 ml 714 ml Balance 240 ml 714 ml Result Diagram: 08/21/1758 Administered Medications Medications (Trade) Dose Ordered Sig/Renard Route PRN Reason Start Time Stop Time Status Last Admin Dose Admin Zolpidem Tartrate (Ambien) 5 mg HS PRN PO INSOMNIA 07/11/17 21:15 08/23/17 20:22 Lorazepam (Ativan) 1 mg Q6H PRN PO MODERATE TO SEVERE ANXIETY 07/11/17 21:15 08/22/17 21:13 Acetaminophen (Tylenol) 650 mg Q4H PRN PO Pain 1-5 or Temp >101F 07/11/17 21:15 07/17/17 20:42 Al Hydrox/Mg Hydrox/Simethicone (Mag-Al Plus Susp Liq) 30 ml Q6H PRN PO DYSPEPSIA 07/11/17 21:15 08/09/17 20:48 Oxycodone/ Acetaminophen (Percocet 5-325 Mg) 1 tab Q6H PRN PO PAIN 6-10 07/11/17 21:15 08/19/17 09:30 Sodium Chloride (NS Flush) 2 ml BID IV FLUSH 07/15/17 21:00 08/22/17 09:00 Bacitracin (Baciguent Oint) 1 applic Q12HR TOPICAL 07/26/17 21:00 08/15/17 10:09 Heparin Sodium (Porcine) (Heparin Central Flush) 500 units UNSCH IV FLUSH 07/28/17 23:45 08/19/17 01:33 Haloperidol (Haldol) 10 mg DAILY PO 08/08/17 09:00 08/24/17 08:47 Haloperidol (Haldol) 15 mg HS PO 08/07/17 21:00 08/23/17 20:19 Enoxaparin Sodium (Lovenox Inj) 90 mg DAILY SQ 08/18/17 09:00 08/24/17 08:48 Objective Remarks GENERAL: Middle aged female, lying in bed, sleeping on approach. SKIN: Warm and dry. HEAD: Normocephalic. EYES: No injection or drainage. NECK: Supple, trachea midline. CARDIOVASCULAR: Regular rate and rhythm RESPIRATORY: Breath sounds equal bilaterally. No accessory muscle use. GASTROINTESTINAL: Abdomen soft, non-tender, nondistended. EXTREMITIES: No cyanosis NEUROLOGICAL: awake and alert, normal speech. Assessment/Plan Problem List: (1) HER2-positive carcinoma of right breast ICD Codes: C50.911 - Malignant neoplasm of unspecified site of right female breast Plan: 07/14: continue weekly therapy with Taxol. does not need Herceptin this week, was given q3 weeks dosing in clinic. 07/20/17. Continue weekly Taxol. Next week next dose Herceptin/Perjeta/Taxol is due. We discussed goal typically to give neoadjuvant therapy for 12 weeks or best response. She is tolerating chemotherapy well. She seems to understand the need to treat her cancer. 07/21: Taxol today. monitor for adverse reaction. 07/27: obtain labs, prepare for Herceptin/Perjeta and Taxol tomorrow. 07/28: Herceptin/Perjeta/Taxol today. tolerating chemotherapy. 08/03: plan for weekly taxol tomorrow. 08/04: proceed with weekly taxol. after finishing 12 weeks of chemotherapy, will plan for mastectomy, then reconstruction. 08/10: plan to give taxol tomorrow 08/11: proceed with week 10 of taxol. plan for two addition weeks of taxol, then surgery. 08/17/17. Plan for Week 11 of Taxol, C4 Herceptin/Pertuzumab tomorrow. Check US R axilla since I am no longer able to feel LN. 08/18/17: proceed with week 11 Taxol today. give Cycle 4 Herceptin and Pertuzumab today as well. 08/24: plan to proceed with week 12 Taxol tomorrow, then plan for surgery in the next 1-3 weeks depending on surgeon schedule/timing. (2) Deep venous thrombosis of left upper extremity ICD Codes: I82.622 - Acute embolism and thrombosis of deep veins of left upper extremity Plan: --on therapeutic dose Lovenox 90mg SQ q 24 hours --plan to start on coumadin post-surgery Assessment 52y/o female with locally advanced HER2/shirley over expressing ER positive right breast cancer currently admitted for psychosis. 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 h/o Chemotherapy induced anemia. plan on 12 weekly cycles of Taxol. She has had chemo 06/08/17, 06/15/17, 06/22/17, 06/29/17, 07/07/17, 07/14/17, 07/21/17 , 07/28/17, 08/04/17, 08/10/17 is week number 10, 08/18/17 is week 11, 08/25/17 is week 12. Herceptin/Perjeta is continued Q 3 weeks next dose due 08/18/17. Goal Herceptin and Perjeta to continue for 52 weeks- which will be completed as outpatient. Plan 1. proceed with taxol tomorrow, unless surgery date is changed, then we will hold chemotherapy tomorrow 2. continue Lovenox at current dosing 3. check CBC, CMP today Attending Statement Agree with above. Chemo tomorrow. Idalia Disla Aug 24, 2017 14:50 Alexa Villareal MD Aug 24, 2017 20:06
[2017-08-24 17:41] VITALS: BP 103/65; PULSE 78; RESP 18; TEMP 97.8; O2SAT 96
[2017-08-24 18:12] LABS: AUTOMATED NEUTROPHIL # 2.9 TH/MM3 (1.8-7.7); BASOPHIL % 0.8 % (0.0-2.0); EOSINOPHIL # 0.2 TH/MM3 (0-0.4); HEMATOCRIT 36.9 % (35.0-46.0); HEMOGLOBIN 12.6 GM/DL (11.6-15.3); LYMPHOCYTE # 1.9 TH/MM3 (1.0-4.8); MEAN CELL VOLUME 90.8 FL (80.0-100.0); MEAN CORPUSCULAR HEMOGLOBIN 30.9 PG (27.0-34.0); MEAN CORPUSCULAR HGB CONC 34.1 % (32.0-36.0); MEAN PLATELET VOLUME 8.3 FL (7.0-11.0); MONO % 6.6 % (0.0-8.0); MONOCYTE # 0.4 TH/MM3 (0-0.9); NEUT % 53.6 % (16.0-70.0); PLATELET COUNT 276 TH/MM3 (150-450); RED BLOOD COUNT 4.06 MIL/MM3 (4.00-5.30); RED CELL DISTRIBUTION WIDTH 15.8 % (11.6-17.2); WHITE BLOOD COUNT 5.3 TH/MM3 (4.0-11.0)
[2017-08-24 18:32] LABS: ALBUMIN 2.9 GM/DL (3.4-5.0); AST (GOT) 21 U/L (15-37); BICARBONATE 26.2 MEQ/L (21.0-32.0); BLOOD UREA NITROGEN 14 MG/DL (7-18); CALCIUM 8.7 MG/DL (8.5-10.1); CHLORIDE 104 MEQ/L (98-107); CREATININE 0.62 MG/DL (0.50-1.00); GLOMERULAR FILTRATION RATE 101 ML/MIN (>89); GLUCOSE,RANDOM 112 MG/DL (74-106); SODIUM (NA) 139 MEQ/L (136-145)
[2017-08-24 18:33] LABS: ALT (GPT) 49 U/L (10-53)
[2017-08-24 18:35] LABS: ALKALINE PHOSPHATASE 61 U/L (45-117); TOTAL BILIRUBIN ADULT 0.5 MG/DL (0.2-1.0); TOTAL PROTEIN 5.9 GM/DL (6.4-8.2)
[2017-08-24] MEDS: REMOVE OLD NICODERM (NICOTINE) PATCH T-DERMAL SCH (19:28)
[2017-08-25 05:28] VITALS: BP 121/68; PULSE 64; RESP 17; TEMP 97.8; O2SAT 97
[2017-08-25] MEDS: HALOPERIDOL 5 MG TAB PO SCH ×2 (08:12→20:20)
[2017-08-25] MEDS: ENOXAPARIN SODIUM 100 MG/ML SYRINGE SQ SCH (08:14)
[2017-08-25] MEDS: BACITRACIN TOP OINT 15 GM TUBE TOPICAL SCH ×2 (08:15→19:26)
[2017-08-25] MEDS: SODIUM CHLORIDE 0.9% FLUSH 10 ML FLUSH IV FLUSH SCH ×2 (08:15→19:26)
--- NOTE | 2017-08-25 10:22 | HHI.PYPN ---
Subjective Chief Complaint: Psychosis Remarks Patient seen for follow up; chart reviewed. Nursing staff reported that the patient has been seclusive and preoccupied with finding her daughter. Patient was found lying hospital bed noted to be, cooperative. Patient states that he has been very worried about her daughter continues to be thinking about this. Patient reports feeling "fine" denies any physical symptoms, denies any difficulty eating and drinking, aware that she has her final chemotherapy today. Patient denies any perceptual disturbances, denies any SI or HI. Patient's looking forward to attending some groups today. Review of Systems Except as stated in HPI: all other systems reviewed are Neg Mental Status Examination Appearance: Appropriate Consciousness: Alert Orientation: Person, Place, Date/Time Motor Activity: Other (lying in bed) Speech: Unremarkable Language: Adequate Fund of Knowledge: Inadequate Attention and Concentration: Adequate Memory: Impaired Mood: Appropriate, Other ("Fine") Affect: Blunt Thought Process & Associations: Other ([place]) Thought Content: Hallucinations (Denies today), Preoccupations (With finding her daughter) Hallucination Type: None Delusion Type: Bizarre Suicidal Ideation: No Suicidal Plan: No Suicidal Intention: No Homicidal Ideation: No Homicidal Plan: No Homicidal Intention: No Insight: Fair Judgment: Poor Results Labs Labs reviewed Test 08/24/17 17:51 White Blood Count 5.3 TH/MM3 Red Blood Count 4.06 MIL/MM3 Hemoglobin 12.6 GM/DL Hematocrit 36.9 % Mean Corpuscular Volume 90.8 FL Mean Corpuscular Hemoglobin 30.9 PG Mean Corpuscular Hemoglobin Concent 34.1 % Red Cell Distribution Width 15.8 % Platelet Count 276 TH/MM3 Mean Platelet Volume 8.3 FL Neutrophils (%) (Auto) 53.6 % Lymphocytes (%) (Auto) 36.0 % Monocytes (%) (Auto) 6.6 % Eosinophils (%) (Auto) 3.0 % Basophils (%) (Auto) 0.8 % Neutrophils # (Auto) 2.9 TH/MM3 Lymphocytes # (Auto) 1.9 TH/MM3 Monocytes # (Auto) 0.4 TH/MM3 Eosinophils # (Auto) 0.2 TH/MM3 Basophils # (Auto) 0.0 TH/MM3 CBC Comment DIFF FINAL Differential Comment Blood Urea Nitrogen 14 MG/DL Creatinine 0.62 MG/DL Random Glucose 112 MG/DL Total Protein 5.9 GM/DL Albumin 2.9 GM/DL Calcium Level 8.7 MG/DL Alkaline Phosphatase 61 U/L Aspartate Amino Transf (AST/SGOT) 21 U/L Alanine Aminotransferase (ALT/SGPT) 49 U/L Total Bilirubin 0.5 MG/DL Sodium Level 139 MEQ/L Potassium Level 3.8 MEQ/L Chloride Level 104 MEQ/L Carbon Dioxide Level 26.2 MEQ/L Anion Gap 9 MEQ/L Estimat Glomerular Filtration Rate 101 ML/MIN Vitals/IOs Vital Signs Date Time Temp Pulse Resp B/P (MAP) Pulse Ox O2 Delivery O2 Flow Rate FiO2 08/25/17 05:28 97.8 64 17 121/68 (85) 97 Intake and Output 08/25/17 08/25/17 08/26/17 08:00 16:00 00:00 Intake Total 480 ml Balance 480 ml Assessment & Plan Problem List: (1) Psychosis not due to substance or known physiological condition ICD Codes: F29 - Unspecified psychosis not due to a substance or known physiological condition Assessment & Plan Patient at this time noted to be somewhat perseverative on finding her daughter who she has not spoken to over 3 years now. Patient denies any other complaints. Patient continued very limited insight into her mental illness but agreeable to continue treatment. Continue current medication regimen, current recommendations as per prior medical team. Patient to have her last chemotherapy today. Continue to monitor mood and behavior. Discharge planning in progress. Justification for Cont. Inpt. At risk for further decompensation if at lower level of care Discharge Planning [facility] Yadiel Enamorado MD Aug 25, 2017 10:22
[2017-08-25] MEDS ORDERED: LORazepam 0.5 MG TAB PO ONE (13:30)
--- NOTE | 2017-08-25 13:44 | PD.ONC.PN ---
Subjective Subjective Remarks Afebrile overnight. Patient resting in bed in nad. No complaints. ready for chemotherapy today. Objective Data Date Time Temp Pulse Resp B/P (MAP) Pulse Ox O2 Delivery O2 Flow Rate FiO2 08/25/17 05:28 97.8 64 17 121/68 (85) 97 08/24/17 17:41 97.8 78 18 103/65 (78) 96 08/25/17 08/25/17 08/25/17 06:59 14:59 22:59 Intake Total 720 ml Balance 720 ml Result Diagram: 08/24/17 1751 08/24/17 1751 Laboratory Results Laboratory Tests Test 08/24/17 17:51 White Blood Count 5.3 TH/MM3 Red Blood Count 4.06 MIL/MM3 Hemoglobin 12.6 GM/DL Hematocrit 36.9 % Mean Corpuscular Volume 90.8 FL Mean Corpuscular Hemoglobin 30.9 PG Mean Corpuscular Hemoglobin Concent 34.1 % Red Cell Distribution Width 15.8 % Platelet Count 276 TH/MM3 Mean Platelet Volume 8.3 FL Neutrophils (%) (Auto) 53.6 % Lymphocytes (%) (Auto) 36.0 % Monocytes (%) (Auto) 6.6 % Eosinophils (%) (Auto) 3.0 % Basophils (%) (Auto) 0.8 % Neutrophils # (Auto) 2.9 TH/MM3 Lymphocytes # (Auto) 1.9 TH/MM3 Monocytes # (Auto) 0.4 TH/MM3 Eosinophils # (Auto) 0.2 TH/MM3 Basophils # (Auto) 0.0 TH/MM3 CBC Comment DIFF FINAL Differential Comment Blood Urea Nitrogen 14 MG/DL Creatinine 0.62 MG/DL Random Glucose 112 MG/DL Total Protein 5.9 GM/DL Albumin 2.9 GM/DL Calcium Level 8.7 MG/DL Alkaline Phosphatase 61 U/L Aspartate Amino Transf (AST/SGOT) 21 U/L Alanine Aminotransferase (ALT/SGPT) 49 U/L Total Bilirubin 0.5 MG/DL Sodium Level 139 MEQ/L Potassium Level 3.8 MEQ/L Chloride Level 104 MEQ/L Carbon Dioxide Level 26.2 MEQ/L Anion Gap 9 MEQ/L Estimat Glomerular Filtration Rate 101 ML/MIN Administered Medications Medications (Trade) Dose Ordered Sig/Renard Route PRN Reason Start Time Stop Time Status Last Admin Dose Admin Zolpidem Tartrate (Ambien) 5 mg HS PRN PO INSOMNIA 07/11/17 21:15 08/23/17 20:22 Lorazepam (Ativan) 1 mg Q6H PRN PO MODERATE TO SEVERE ANXIETY 07/11/17 21:15 08/22/17 21:13 Acetaminophen (Tylenol) 650 mg Q4H PRN PO Pain 1-5 or Temp >101F 07/11/17 21:15 07/17/17 20:42 Al Hydrox/Mg Hydrox/Simethicone (Mag-Al Plus Susp Liq) 30 ml Q6H PRN PO DYSPEPSIA 07/11/17 21:15 08/09/17 20:48 Oxycodone/ Acetaminophen (Percocet 5-325 Mg) 1 tab Q6H PRN PO PAIN 6-10 07/11/17 21:15 08/19/17 09:30 Sodium Chloride (NS Flush) 2 ml BID IV FLUSH 07/15/17 21:00 08/22/17 09:00 Bacitracin (Baciguent Oint) 1 applic Q12HR TOPICAL 07/26/17 21:00 08/25/17 08:15 Heparin Sodium (Porcine) (Heparin Central Flush) 500 units UNSCH IV FLUSH 07/28/17 23:45 08/19/17 01:33 Haloperidol (Haldol) 10 mg DAILY PO 08/08/17 09:00 08/25/17 08:12 Haloperidol (Haldol) 15 mg HS PO 08/07/17 21:00 08/24/17 20:10 Enoxaparin Sodium (Lovenox Inj) 90 mg DAILY SQ 08/18/17 09:00 08/25/17 08:14 Objective Remarks GENERAL: Middle aged female, supine in bed, in nad. SKIN: Warm and dry. HEAD: Normocephalic. EYES: No injection or drainage. NECK: Supple, trachea midline. CARDIOVASCULAR: Regular rate and rhythm RESPIRATORY: Breath sounds equal bilaterally. No accessory muscle use. GASTROINTESTINAL: Abdomen soft, non-tender, nondistended. EXTREMITIES: No cyanosis NEUROLOGICAL: awake, alert. normal speech. moving extremities. Assessment/Plan Problem List: (1) HER2-positive carcinoma of right breast ICD Codes: C50.911 - Malignant neoplasm of unspecified site of right female breast Plan: 2: continue weekly therapy with Taxol. does not need Herceptin this week, was given q3 weeks dosing in clinic. 07/20/17. Continue weekly Taxol. Next week next dose Herceptin/Perjeta/Taxol is due. We discussed goal typically to give neoadjuvant therapy for 12 weeks or best response. She is tolerating chemotherapy well. She seems to understand the need to treat her cancer. 08/25: week 12 taxol today. surgery in three weeks. (2) Deep venous thrombosis of left upper extremity ICD Codes: I82.622 - Acute embolism and thrombosis of deep veins of left upper extremity Plan: --on therapeutic dose Lovenox 90mg SQ q 24 hours --plan to start on coumadin post-surgery Assessment 52y/o female with locally advanced HER2/shirley over expressing ER positive right breast cancer currently admitted for psychosis. 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 h/o Chemotherapy induced anemia. plan on 12 weekly cycles of Taxol. She has had chemo 06/08/17, 06/15/17, 06/22/17, 06/29/17, 07/07/17, 07/14/17, 07/21/17 , 07/28/17, 08/04/17, 08/10/17 is week number 10, 08/18/17 is week 11, 08/25/17 is week 12. Herceptin/Perjeta is continued Q 3 weeks next dose due 08/18/17. Goal Herceptin and Perjeta to continue for 52 weeks- which will be completed as outpatient. Plan 1. proceed with taxol today 2. continue Lovenox Attending Statement The exam, history, and the medical decision-making described in the above note were completed with the assistance of the mid-level provider. I reviewed and agree with the findings presented. I attest that I had a [id number] encounter with the patient on the same day, and personally performed and documented my assessment and findings in the medical record. Waiting for dinner to come. Tolerated Week 12 of Taxol. R axillary LN small, R breast mass posterior nipple unchanged possibly softer. Discussed with Dr. Sewell, reported no cytopenia with chemotherapy. Furthermore chemotherapy with short t/2, she should be able to have surgery in 2 weeks times/early September. Explained R mastectomy and delayed reconstruction with Dr. Hollingsworth. Lovenox once daily continue anticipate bridge to therapeutic INR after definitive surgery. Discussed continue Herceptin and Pertuzumab, Q3 weeks that these are different from Taxol. Plan to check ECHO Q 3 months, monitoring for heart failure. L arm swelling resolved. Start AI since chemotherapy is complete, waiting for definitive surgery. Idalia Disla Aug 25, 2017 13:44 Alexa Villareal MD Aug 25, 2017 18:20
[2017-08-25] MEDS ORDERED: DEXAMETHASONE INJ 10 MG in SODIUM CHLORIDE 0.9% INJ 50 ML IV ONE (14:00)
[2017-08-25] MEDS ORDERED: FAMOTIDINE 20 MG TAB PO ONE (14:00)
[2017-08-25] MEDS ORDERED: diphenhydrAMINE HCL 25 MG CAP PO ONE (14:00)
[2017-08-25 15:00] VITALS: BP 132/80; PULSE 81; RESP 20; TEMP 98.8; O2SAT 96
[2017-08-25] MEDS ORDERED: SODIUM CHLOR 0.9% IV ONE (15:00)
[2017-08-25] MEDS ORDERED: PACLITAXEL IV ONE (15:00)
[2017-08-25 17:42] VITALS: BP 128/77; PULSE 81; RESP 16; TEMP 98.2; O2SAT 95
[2017-08-25] MEDS: REMOVE OLD NICODERM (NICOTINE) PATCH T-DERMAL SCH (19:26)
[2017-08-26 05:58] VITALS: BP 129/75; PULSE 50; RESP 18; TEMP 97.3; O2SAT 94
[2017-08-26] MEDS: SODIUM CHLORIDE 0.9% FLUSH 10 ML FLUSH IV FLUSH SCH ×2 (09:00→19:34)
[2017-08-26] MEDS: BACITRACIN TOP OINT 15 GM TUBE TOPICAL SCH ×2 (09:00→19:35)
[2017-08-26] MEDS: HALOPERIDOL 5 MG TAB PO SCH ×2 (09:34→21:00)
[2017-08-26] MEDS: ENOXAPARIN SODIUM 100 MG/ML SYRINGE SQ SCH (09:35)
--- NOTE | 2017-08-26 10:13 | HHI.PYPN ---
Subjective Chief Complaint: Psychosis Remarks Reviewed electronic medical record and discussed case with staff. Follow-up performed in patient's room with nurse present. Patient awake, alert, and oriented to person and place. She advises that she slept well and staff states that she ate most of her breakfast. Her speech is clear and organized. She is compliant with medications and staff. She advises that she had her last chemo treatment yesterday and denies any nausea. Reports that she is looking forward to fresh air today, and when reminded that it is [facility] [place] day she discusses what she has that is green that she can wear. Overall she seems in good spirits. Per staff, she continues to occasionally call out and talk to herself. Mental Status Examination Appearance: Appropriate Consciousness: Alert Orientation: Person, Place, Date/Time Motor Activity: Other (lying in bed) Speech: Unremarkable Language: Adequate Fund of Knowledge: Inadequate Attention and Concentration: Adequate Memory: Impaired Mood: Appropriate, Other ("good") Affect: Blunt Thought Process & Associations: Other ([place]) Thought Content: Hallucinations (Per staff ocasionally calls out, talks to self ) Hallucination Type: None Delusion Type: Bizarre Suicidal Ideation: No Suicidal Plan: No Suicidal Intention: No Homicidal Ideation: No Homicidal Plan: No Homicidal Intention: No Insight: Fair Judgment: Poor Results Vitals/IOs Vital Signs Date Time Temp Pulse Resp B/P (MAP) Pulse Ox O2 Delivery O2 Flow Rate FiO2 08/26/17 05:58 97.3 50 18 129/75 (93) 94 Intake and Output 08/26/17 08/26/17 08/27/17 08:00 16:00 00:00 Intake Total 480 ml 360 ml Balance 480 ml 360 ml Assessment & Plan Problem List: (1) Psychosis not due to substance or known physiological condition ICD Codes: F29 - Unspecified psychosis not due to a substance or known physiological condition Assessment & Plan Estimated LOS: Per medical, patient scheduled to have a radical mastectomy three weeks from now. She remains incapable of self-care. Discharge planning is in progress for status post surgery/recovery. Justification for Cont. Inpt. Moving this patient to a lower level of care would result in decompensation. Shanika Denney Aug 26, 2017 10:13
[2017-08-26 16:37] VITALS: BP 120/63; PULSE 52; RESP 17; TEMP 98.1; O2SAT 97
[2017-08-26] MEDS: REMOVE OLD NICODERM (NICOTINE) PATCH T-DERMAL SCH (19:35)
[2017-08-27 06:35] VITALS: BP 130/80; PULSE 77; RESP 18; TEMP 97.5; O2SAT 98
[2017-08-27] MEDS: BACITRACIN TOP OINT 15 GM TUBE TOPICAL SCH ×3 (09:21→20:18)
[2017-08-27] MEDS: HALOPERIDOL 5 MG TAB PO SCH ×2 (09:22→20:15)
[2017-08-27] MEDS: ENOXAPARIN SODIUM 100 MG/ML SYRINGE SQ SCH (09:26)
[2017-08-27] MEDS: SODIUM CHLORIDE 0.9% FLUSH 10 ML FLUSH IV FLUSH SCH ×2 (09:26→20:15)
--- NOTE | 2017-08-27 12:36 | HHI.PYPN ---
Subjective Chief Complaint: Psychosis Remarks Reviewed electronic medical record and discussed case with staff. Follow-up conducted in patient's room. Per staff patient was ambulating in the hallway around 0 530 this morning mumbling about being kidnapped. Her nurse reports she has seemed internally stimulated today. While this provider was on the floor patient came to the nurses station asking "what do you type and there". She presented as paranoid and expressed concern that the notes I was typing would go straight to the government. Her speech is clear, organized, at times illogical. Her mood is anxious and suspicious, and her affect remains blunt. She did accept our explanation on how her privacy is protected. She reports that she slept well and advises that her appetite has been "so-so". She does report attending activities yesterday which was verified by staff. Mental Status Examination Appearance: Appropriate Consciousness: Alert Orientation: Person, Place, Date/Time Motor Activity: Other (lying in bed) Speech: Unremarkable Language: Adequate Fund of Knowledge: Inadequate Attention and Concentration: Adequate Memory: Impaired Mood: Appropriate, Other ("good") Affect: Blunt Thought Process & Associations: Other ([place]) Thought Content: Hallucinations (Mumbling about being kidnapped per staff), Delusional Hallucination Type: None Delusion Type: Bizarre, Paranoid (Exhibiting paranoia, believes what this provider is typing is going straight to the [place]) Suicidal Ideation: No Suicidal Plan: No Suicidal Intention: No Homicidal Ideation: No Homicidal Plan: No Homicidal Intention: No Insight: Poor Judgment: Poor Results Vitals/IOs Vital Signs Date Time Temp Pulse Resp B/P (MAP) Pulse Ox O2 Delivery O2 Flow Rate FiO2 08/27/17 06:35 97.5 77 18 130/80 (97) 98 Intake and Output 08/27/17 08/27/17 08/27/17 07:59 15:59 23:59 Intake Total 480 ml 360 ml Balance 480 ml 360 ml Assessment & Plan Problem List: (1) Psychosis not due to substance or known physiological condition ICD Codes: F29 - Unspecified psychosis not due to a substance or known physiological condition Assessment & Plan Estimated LOS: Patient is awaiting a medically necessary surgical procedure. She is unable to care for herself at this time. She remains delusional and internally stimulated. Her counselor continues to work towards a safe discharge placement after she is medically cleared. Justification for Cont. Inpt. Moving this patient to a lower level of care would result in a decompensation. Shanika Denney Aug 27, 2017 12:36
[2017-08-27 18:00] VITALS: PULSE 111; RESP 18; TEMP 97.7; O2SAT 97
[2017-08-27] MEDS: REMOVE OLD NICODERM (NICOTINE) PATCH T-DERMAL SCH (20:16)
[2017-08-27] MEDS: LORazepam 1 MG TAB PO PRN (23:30)
[2017-08-27] MEDS: oxyCODONE/ACETAMINOPHEN 5 MG/325 MG TAB PO PRN (23:37)
[2017-08-28] MEDS: ZOLPIDEM TARTRATE 5 MG TAB PO PRN (02:54)
[2017-08-28 06:36] VITALS: BP 129/61; PULSE 71; RESP 16; TEMP 98.4; O2SAT 98
[2017-08-28] MEDS: SODIUM CHLORIDE 0.9% FLUSH 10 ML FLUSH IV FLUSH SCH ×3 (08:49→21:00)
[2017-08-28] MEDS: HALOPERIDOL 5 MG TAB PO SCH ×2 (08:49→20:10)
[2017-08-28] MEDS: BACITRACIN TOP OINT 15 GM TUBE TOPICAL SCH ×2 (08:49→20:10)
[2017-08-28] MEDS: ENOXAPARIN SODIUM 100 MG/ML SYRINGE SQ SCH (08:50)
--- NOTE | 2017-08-28 10:49 | HHI.PYPN ---
Subjective Chief Complaint: Psychosis Remarks Patient seen for follow, chart reviewed. Discussion nursing staff reported the patient noted to be more anxious, pacing last night and believing that her daughter is in [facility] being tortured. Patient was endorsing auditory hallucinations and paranoia last evening as well as this morning. Patient was found lying hospital bed noted to be somnolent but superficially cooperative with interview today. Patient states she is feeling "fine" reported to her weekend went okay. Patient had to be woken up several times to engage in interview continues report feeling tired and being superficially engaged to continue with interview. Review of Systems Except as stated in HPI: all other systems reviewed are Neg Mental Status Examination Appearance: Appropriate Consciousness: Alert Orientation: Person, Place, Date/Time Motor Activity: Other (lying in bed) Speech: Unremarkable Language: Adequate Fund of Knowledge: Inadequate Attention and Concentration: Adequate Memory: Impaired Mood: Appropriate, Other ("good") Affect: Blunt Thought Process & Associations: Other ([place]) Thought Content: Hallucinations (Mumbling about being kidnapped per staff), Delusional Hallucination Type: None Delusion Type: Bizarre, Paranoid (Exhibiting paranoia, believes what this provider is typing is going straight to the government) Suicidal Ideation: No Suicidal Plan: No Suicidal Intention: No Homicidal Ideation: No Homicidal Plan: No Homicidal Intention: No Insight: Poor Judgment: Poor Results Vitals/IOs Vital Signs Date Time Temp Pulse Resp B/P (MAP) Pulse Ox O2 Delivery O2 Flow Rate FiO2 08/28/17 06:36 98.4 71 16 129/61 (83) 98 Intake and Output 08/28/17 08/28/17 08/29/17 08:00 16:00 00:00 Intake Total 480 ml 720 ml Balance 480 ml 720 ml Assessment & Plan Problem List: (1) Psychosis not due to substance or known physiological condition ICD Codes: F29 - Unspecified psychosis not due to a substance or known physiological condition Assessment & Plan Patient this time continues with poor insight and decreased ability to care for self due to her current symptomatology. Patient noted with increase in delusions pertaining to her daughter and responding to internal stimuli but redirectable and with no behavioral difficulties. Patient has occasional episodes of perseveration regarding her daughter's whereabouts and paranoia. Therefore will continue to monitor with behavior with no change to current regimen for now.. Continue current treatment. Continue recommendations per prior medical team. Discharge planning in progress. Justification for Cont. Inpt. At risk of further decompensation at lower level of care. Discharge Planning [facility] Yadiel Enamorado MD Aug 28, 2017 10:49
[2017-08-28 18:21] VITALS: BP 120/60; PULSE 91; RESP 16; TEMP 98.9; O2SAT 98
--- NOTE | 2017-08-28 19:39 | ECHRPT ---
Indication: CHF CONCLUSIONS The left ventricular systolic function is normal with an estimated ejection fraction of 60%. Normal left ventricular size. Wall thickness is normal. No regional wall motion abnormalities are present. BP: / HR: Rhythm: Sinus MEASUREMENTS (Male / Female) Normal Values Technical Quality:Good 2D ECHO LV Diastolic Diameter PLAX 4.0 cm 4.2 - 5.9 / 3.9 - 5.3 cm LV Systolic Diameter PLAX 2.9 cm IVS Diastolic Thickness 1.0 cm 0.6 - 1.0 / 0.6 - 0.9 cm LVPW Diastolic Thickness 1.0 cm 0.6 - 1.0 / 0.6 - 0.9 cm LV Relative Wall Thickness 0.5 LV Ejection Fraction MOD 4C 59.0 % LV Ejection Fraction 4C AL 61.6 % FINDINGS LEFT VENTRICLE The left ventricular systolic function is normal with an estimated ejection fraction of 60%. Normal left ventricular size. Wall thickness is normal. No regional wall motion abnormalities are present. Lisa Dunn MD, FACC (Electronically Signed) Final Date:28 August 2017 19:38
[2017-08-28] MEDS: LORazepam 1 MG TAB PO PRN (20:11)
[2017-08-28] MEDS: oxyCODONE/ACETAMINOPHEN 5 MG/325 MG TAB PO PRN (20:11)
[2017-08-28] MEDS: REMOVE OLD NICODERM (NICOTINE) PATCH T-DERMAL SCH (20:11)
[2017-08-29 05:16] VITALS: BP 114/58; PULSE 89; RESP 15; TEMP 98.3; O2SAT 95
[2017-08-29] MEDS: HALOPERIDOL 5 MG TAB PO SCH ×2 (09:00→20:47)
[2017-08-29] MEDS: SODIUM CHLORIDE 0.9% FLUSH 10 ML FLUSH IV FLUSH SCH ×2 (09:00→20:44)
--- NOTE | 2017-08-29 09:00 | HHI.PYPN ---
Subjective Chief Complaint: Psychosis Remarks Patient seen for follow, chart reviewed. Discussion nursing staff reported the patient has had less pacing compared to yesterday, did not eat lunch but had to be encouraged to eat her dinner which she did 100%. Patient slept well and no perseveration on her missing her last evening. Patient was found lying hospital bed noted be superficially cooperative and somnolent and required to be woken up several times engage in interview today. Patient states she is feeling "fine" denies any physical complaints. Patient did not endorse any perseveration of her missing daughter this morning, was encouraged to shower and go to groups which she agreed to. Review of Systems Except as stated in HPI: all other systems reviewed are Neg Mental Status Examination Appearance: Appropriate Consciousness: Alert Orientation: Person, Place, Date/Time Motor Activity: Other (lying in bed) Speech: Unremarkable Language: Adequate Fund of Knowledge: Inadequate Attention and Concentration: Adequate Memory: Impaired Mood: Appropriate, Other ("fine") Affect: Blunt, Other (Guarded) Thought Process & Associations: Other ([place]) Thought Content: Hallucinations (Mumbling about being kidnapped per staff), Delusional Hallucination Type: None Delusion Type: Bizarre, Paranoid (Exhibiting paranoia, believes what this provider is typing is going straight to the government) Suicidal Ideation: No Suicidal Plan: No Suicidal Intention: No Homicidal Ideation: No Homicidal Plan: No Homicidal Intention: No Insight: Poor Judgment: Poor Results Vitals/IOs Vital Signs Date Time Temp Pulse Resp B/P (MAP) Pulse Ox O2 Delivery O2 Flow Rate FiO2 08/29/17 05:16 98.3 89 15 114/58 (76) 95 Intake and Output 08/29/17 08/29/17 08/30/17 08:00 16:00 00:00 Intake Total 240 ml Balance 240 ml Assessment & Plan Problem List: (1) Psychosis not due to substance or known physiological condition ICD Codes: F29 - Unspecified psychosis not due to a substance or known physiological condition Assessment & Plan Patient this time continues with episodic moments of bizarre and paranoid delusions, but none today. Patient appears to be participating less in activities recently although denying any depressed mood will continue to monitor for the same. Continue to encourage patient to participate in groups and activities and self hygiene. Verna current treatment. Continue recommendations as per prior medical team. Discharge planning in progress. Justification for Cont. Inpt. At risk of further decompensation at lower level of care. Discharge Planning To be determined. Yadiel Enamorado MD Aug 29, 2017 09:00
[2017-08-29] MEDS: ENOXAPARIN SODIUM 100 MG/ML SYRINGE SQ SCH (09:01)
[2017-08-29] MEDS: BACITRACIN TOP OINT 15 GM TUBE TOPICAL SCH ×2 (09:01→20:46)
[2017-08-29] MEDS: ANASTROZOLE 1 MG TAB PO SCH (10:21)
--- NOTE | 2017-08-29 14:48 | PD.ONC.PN ---
Subjective Subjective Remarks Afebrile overnight. Patient resting in bed in nad. No complaints. Objective Data Date Time Temp Pulse Resp B/P (MAP) Pulse Ox O2 Delivery O2 Flow Rate FiO2 08/29/17 05:16 98.3 89 15 114/58 (76) 95 08/28/17 18:21 98.9 91 16 120/60 (80) 98 08/29/17 08/29/17 08/29/17 07:00 15:00 23:00 Intake Total 240 ml Balance 240 ml Administered Medications Medications (Trade) Dose Ordered Sig/Renard Route PRN Reason Start Time Stop Time Status Last Admin Dose Admin Zolpidem Tartrate (Ambien) 5 mg HS PRN PO INSOMNIA 07/11/17 21:15 08/28/17 02:54 Lorazepam (Ativan) 1 mg Q6H PRN PO MODERATE TO SEVERE ANXIETY 07/11/17 21:15 08/28/17 20:11 Acetaminophen (Tylenol) 650 mg Q4H PRN PO Pain 1-5 or Temp >101F 07/11/17 21:15 07/17/17 20:42 Al Hydrox/Mg Hydrox/Simethicone (Mag-Al Plus Susp Liq) 30 ml Q6H PRN PO DYSPEPSIA 07/11/17 21:15 08/09/17 20:48 Oxycodone/ Acetaminophen (Percocet 5-325 Mg) 1 tab Q6H PRN PO PAIN 6-10 07/11/17 21:15 08/28/17 20:11 Sodium Chloride (NS Flush) 2 ml BID IV FLUSH 07/15/17 21:00 08/22/17 09:00 Bacitracin (Baciguent Oint) 1 applic Q12HR TOPICAL 07/26/17 21:00 08/29/17 09:01 Heparin Sodium (Porcine) (Heparin Central Flush) 500 units UNSCH IV FLUSH 07/28/17 23:45 08/25/17 17:43 Haloperidol (Haldol) 10 mg DAILY PO 08/08/17 09:00 08/29/17 09:00 Haloperidol (Haldol) 15 mg HS PO 08/07/17 21:00 08/28/17 20:10 Enoxaparin Sodium (Lovenox Inj) 90 mg DAILY SQ 08/18/17 09:00 08/29/17 09:01 Anastrozole (Arimidex) 1 mg DAILY PO 08/29/17 11:00 08/29/17 10:21 Objective Remarks GENERAL: Pleasant middle aged female, sitting up in bed eating a sandwich. SKIN: Warm and dry. HEAD: Normocephalic. EYES: No injection or drainage. NECK: Supple, trachea midline. CARDIOVASCULAR: Regular rate and rhythm RESPIRATORY: Breath sounds equal bilaterally. No accessory muscle use. GASTROINTESTINAL: Abdomen soft, non-tender, nondistended. EXTREMITIES: No cyanosis NEUROLOGICAL: awake and alert. normal speech. Assessment/Plan Problem List: (1) HER2-positive carcinoma of right breast ICD Codes: C50.911 - Malignant neoplasm of unspecified site of right female breast Plan: 07/14: continue weekly therapy with Taxol. does not need Herceptin this week, was given q3 weeks dosing in clinic. 07/20/17. Continue weekly Taxol. Next week next dose Herceptin/Perjeta/Taxol is due. We discussed goal typically to give neoadjuvant therapy for 12 weeks or best response. She is tolerating chemotherapy well. She seems to understand the need to treat her cancer. 08/25: week 12 taxol today. surgery in three weeks. 08/29: start AI (arimidex) today. discussed potential side effects including weight gain, hot flashes. (2) Deep venous thrombosis of left upper extremity ICD Codes: I82.622 - Acute embolism and thrombosis of deep veins of left upper extremity Plan: --on therapeutic dose Lovenox 90mg SQ q 24 hours --plan to start on coumadin post-surgery Assessment 52y/o female with locally advanced HER2/shirley over expressing ER positive right breast cancer currently admitted for psychosis. 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 h/o Chemotherapy induced anemia. plan on 12 weekly cycles of Taxol. She has had chemo 06/08/17, 06/15/17, 06/22/17, 06/29/17, 07/07/17, 07/14/17, 07/21/17 , 07/28/17, 08/04/17, 08/10/17 is week number 10, 08/18/17 is week 11, 08/25/17 is week 12. Herceptin/Perjeta is continued Q 3 weeks next dose due 08/18/17. Goal Herceptin and Perjeta to continue for 52 weeks- which will be completed as outpatient. Plan 1. start Arimidex 2. plan for surgery in three weeks. Attending Statement The exam, history, and the medical decision-making described in the above note were completed with the assistance of the mid-level provider. I reviewed and agree with the findings presented. I attest that I had a [id number] encounter with the patient on the same day, and personally performed and documented my assessment and findings in the medical record. Feeling tired. Weeping pustule over L arm and top of scalp. Denies any other lesion. Appears to have a cold sore. Check CBC, get blood culture through port. MOnitor for neutropenia, no fevers documented. Cont AI, tolerating it well but has hot flashes. No chemo this Monday. Monitor EF with ECHO. Last 08/28/17 EF 60%. Next chemo on 09/07 with Herceptin and Perjeta (- as out pt clinic closed 09/08) Idalia Disla Aug 29, 2017 14:48 Alexa Villareal MD Aug 29, 2017 19:23
[2017-08-29 17:50] VITALS: BP 128/60; PULSE 95; RESP 16; TEMP 98; O2SAT 95
[2017-08-29 20:36] LABS: AUTOMATED NEUTROPHIL # 5.6 TH/MM3 (1.8-7.7); BASOPHIL % 0.4 % (0.0-2.0); EOSINOPHIL # 0.1 TH/MM3 (0-0.4); EOSINOPHIL % 1.3 % (0.0-4.0); HEMATOCRIT 36.7 % (35.0-46.0); HEMOGLOBIN 12.3 GM/DL (11.6-15.3); LYMPH % 20.5 % (9.0-44.0); LYMPHOCYTE # 1.6 TH/MM3 (1.0-4.8); MEAN CELL VOLUME 91.1 FL (80.0-100.0); MEAN CORPUSCULAR HEMOGLOBIN 30.5 PG (27.0-34.0); MEAN CORPUSCULAR HGB CONC 33.5 % (32.0-36.0); MEAN PLATELET VOLUME 8.6 FL (7.0-11.0); MONO % 4.1 % (0.0-8.0); MONOCYTE # 0.3 TH/MM3 (0-0.9); NEUT % 73.7 % (16.0-70.0); PLATELET COUNT 285 TH/MM3 (150-450); RED BLOOD COUNT 4.03 MIL/MM3 (4.00-5.30); RED CELL DISTRIBUTION WIDTH 16.1 % (11.6-17.2); WHITE BLOOD COUNT 7.6 TH/MM3 (4.0-11.0)
[2017-08-29] MEDS: REMOVE OLD NICODERM (NICOTINE) PATCH T-DERMAL SCH (20:45)
[2017-08-29] MEDS: CEPHALEXIN MONOHYDRATE 500 MG CAP PO SCH (22:00)
[2017-08-30] MEDS: CEPHALEXIN MONOHYDRATE 500 MG CAP PO SCH (05:28)
[2017-08-30 06:17] VITALS: BP 109/76; PULSE 80; RESP 16; TEMP 98.1; O2SAT 96
[2017-08-30] MEDS: BACITRACIN TOP OINT 15 GM TUBE TOPICAL SCH ×2 (09:00→21:00)
[2017-08-30] MEDS: HALOPERIDOL 5 MG TAB PO SCH ×2 (09:00→22:31)
[2017-08-30] MEDS: SODIUM CHLORIDE 0.9% FLUSH 10 ML FLUSH IV FLUSH SCH ×2 (09:00→21:00)
--- NOTE | 2017-08-30 10:11 | HHI.PYPN ---
Subjective Chief Complaint: Psychosis Remarks Patient is here for follow, chart reviewed. Discussion staff reported the patient has been mostly in bed since yesterday and has not showered. Patient was found lying in hospital bed to be superficially cooperative interview today. Patient states that she is feeling "fine" but also reports feeling tired did state feeling a little depressed but was not able to elaborate reasons why. Patient agrees to shower today and attend some groups. Patient denies any perceptual disturbances nor any perseveration on any bizarre delusions today. Review of Systems Except as stated in HPI: all other systems reviewed are Neg Mental Status Examination Appearance: Appropriate Consciousness: Alert Orientation: Person, Place, Date/Time Motor Activity: Other (lying in bed) Speech: Unremarkable Language: Adequate Fund of Knowledge: Inadequate Attention and Concentration: Adequate Memory: Impaired Mood: Appropriate, Other ("fine") Affect: Blunt, Other (Guarded) Thought Process & Associations: Other ([place]) Thought Content: Hallucinations (Mumbling about being kidnapped per staff), Delusional Hallucination Type: None Delusion Type: Bizarre, Paranoid (Exhibiting paranoia, believes what this provider is typing is going straight to the government) Suicidal Ideation: No Suicidal Plan: No Suicidal Intention: No Homicidal Ideation: No Homicidal Plan: No Homicidal Intention: No Insight: Poor Judgment: Poor Results Labs Labs reviewed Test 08/29/17 20:15 White Blood Count 7.6 TH/MM3 Red Blood Count 4.03 MIL/MM3 Hemoglobin 12.3 GM/DL Hematocrit 36.7 % Mean Corpuscular Volume 91.1 FL Mean Corpuscular Hemoglobin 30.5 PG Mean Corpuscular Hemoglobin Concent 33.5 % Red Cell Distribution Width 16.1 % Platelet Count 285 TH/MM3 Mean Platelet Volume 8.6 FL Neutrophils (%) (Auto) 73.7 % Lymphocytes (%) (Auto) 20.5 % Monocytes (%) (Auto) 4.1 % Eosinophils (%) (Auto) 1.3 % Basophils (%) (Auto) 0.4 % Neutrophils # (Auto) 5.6 TH/MM3 Lymphocytes # (Auto) 1.6 TH/MM3 Monocytes # (Auto) 0.3 TH/MM3 Eosinophils # (Auto) 0.1 TH/MM3 Basophils # (Auto) 0.0 TH/MM3 CBC Comment DIFF FINAL Differential Comment Date/Time Source Procedure Growth Status 08/29/17 20:15 Blood Line Aerobic Blood Culture Pending Received 08/29/17 20:15 Blood Line Anaerobic Blood Culture Pending Received Vitals/IOs Vital Signs Date Time Temp Pulse Resp B/P (MAP) Pulse Ox O2 Delivery O2 Flow Rate FiO2 08/30/17 06:17 98.1 80 16 109/76 (87) 96 Intake and Output 08/30/17 08/30/17 08/31/17 08:00 16:00 00:00 Intake Total 720 ml Balance 720 ml Assessment & Plan Problem List: (1) Psychosis not due to substance or known physiological condition ICD Codes: F29 - Unspecified psychosis not due to a substance or known physiological condition Assessment & Plan Patient this time noted to have decreased participation in groups and activities , noted to be more isolative and not showering. We will continue current treatment. Continue to encourage patient to maintain personal hygiene and participate in groups and activities. Continue to monitor mood and behavior. Discharge planning in progress. Justification for Cont. Inpt. At risk of further decompensation a lower level of care. Discharge Planning To be determined. Yadiel Enamorado MD Aug 30, 2017 10:11
[2017-08-30] MEDS: ANASTROZOLE 1 MG TAB PO SCH (10:32)
[2017-08-30] MEDS: ENOXAPARIN SODIUM 100 MG/ML SYRINGE SQ SCH (10:33)
--- NOTE | 2017-08-30 13:26 | PD.TTN ---
Patient Problems 1. Discharge planning 2. Medication compliance 3. Knowledge deficit 4. Lack of coping skills Progress Toward Goals Provider Present: Dr. Alex Enamorado Provider Input: 08/28/2017: Patient is pending [facility], breast removal surgery 08/23/2017: Patient has one remaining Chemo treatment and within three weeks she will have surgery 08/21/2017; Patient is a state wait, still disorganized, requires stable appropriate dc placement for medical and mental health purpose. 08/16/2017;Patient is a state wait, has one more treatment and will be able to be transferred to [facility] 08/07/2017; patient is a state wait or will require a structure discharge environment 07/24/2017; per Dr. Enamorado, patient continues to display inappropriate behavior, requesting redirection with thoughts/mood. 07/19/17 remains in need for stabilization and is lacking insight and remains at high risk for decompensation 07/17/17 patient is receiving chemo and presenting different than last hospitalization which she was manic, now she is withdrawn and limited in talking and interacting 07/14/17 patient came from independent living at [facility] and appears not being able to return there - she can benefit from an [facility] placement Nurse(s) Present: RN Nurse(s) Input: 08/28/2017: Patient is compliant with meals, and treatment 08/23/2017; patient is compliant with medication, meals requires some motivation and coaching 08/21/2017; patient is eating and taking her medication, needs prompting and encouragement 08/16/2017: patient is eating taking her medication, has no motivation and isolate most of the day. Patient is eating and very redirectable Psychiatric Counselors Present: Amanda Silva LCSW, Fernanda Garrett, [facility] Psych Therapist Input: 08/28/2017: Patient is encouraged with meals, treatment and groups 08/23/2017; counselor will call previous facilities to inquire if they would accept patient after surgery is complete 08/21/2017: counselor will encourage patient with activities 08/16/2017; patient is enouraged with meals, mood, and group participation 08/07/2017; patient is encouraged with meals, mood and medication 07/24/2017; patient is encouraged with mood, meals and medication compliance 07/19/17 still erratic, mood unstable, disorganized thoughts continue , needs at least FIFI if not more care 07/17/17 will work on SNF facilities and refer patient today, she remains uncooperative with this therapist 07/14/17 patient refused to talk to this counselor twice yesterday, pretending to sleep she is reported by nurses to remain in bed without interacting and irritable Group Spec/RT/OT/DONATO Present: Onel Devi, OT Group Spec/RT/OT/DONATO Input: 08/28/2017: Patient attends select groups, with little participation 08/23/2017: Patient has been attending groups; however she is easily overwhelmed; complete simple task 08/16/2017; patient will not participate with groups or activities 08/07/2017; patient is unable to participate with groups or activities 07/24/2017; patient continues to be unable to participate with groups and activities 07/19/17 cannot tolerate groups and non reality based thoughts 07/17/17 does not attend group and does not tolerate 07/14/17 patient does not attend groups and does not tolerate groups Documentation Scribe: Fernanda Dupree [facility] Aug 30, 2017 13:26
--- NOTE | 2017-08-30 15:15 | PD.ONC.PN ---
Subjective Subjective Remarks Afebrile overnight. Patient seen in dayroom. she is watching a movie. she is without complaint. she does endorse pain in left forearm when asked about her erythematous lesions. Objective Data Date Time Temp Pulse Resp B/P (MAP) Pulse Ox O2 Delivery O2 Flow Rate FiO2 08/30/17 06:17 98.1 80 16 109/76 (87) 96 08/29/17 17:50 98.0 95 16 128/60 (82) 95 08/30/17 08/30/17 08/30/17 07:00 15:00 23:00 Intake Total 240 ml 1440 ml Balance 240 ml 1440 ml Result Diagram: 08/29/172014 Laboratory Results Laboratory Tests Test 08/29/17 20:15 White Blood Count 7.6 TH/MM3 Red Blood Count 4.03 MIL/MM3 Hemoglobin 12.3 GM/DL Hematocrit 36.7 % Mean Corpuscular Volume 91.1 FL Mean Corpuscular Hemoglobin 30.5 PG Mean Corpuscular Hemoglobin Concent 33.5 % Red Cell Distribution Width 16.1 % Platelet Count 285 TH/MM3 Mean Platelet Volume 8.6 FL Neutrophils (%) (Auto) 73.7 % Lymphocytes (%) (Auto) 20.5 % Monocytes (%) (Auto) 4.1 % Eosinophils (%) (Auto) 1.3 % Basophils (%) (Auto) 0.4 % Neutrophils # (Auto) 5.6 TH/MM3 Lymphocytes # (Auto) 1.6 TH/MM3 Monocytes # (Auto) 0.3 TH/MM3 Eosinophils # (Auto) 0.1 TH/MM3 Basophils # (Auto) 0.0 TH/MM3 CBC Comment DIFF FINAL Differential Comment Culture Results Microbiology Date/Time Source Procedure Growth Status 08/29/17 20:15 Blood Line Aerobic Blood Culture - Preliminary NO GROWTH IN 1 DAY Resulted 08/29/17 20:15 Blood Line Anaerobic Blood Culture - Preliminary NO GROWTH IN 1 DAY Resulted 08/29/17 20:10 Blood Line Aerobic Blood Culture - Preliminary NO GROWTH IN 1 DAY Resulted 08/29/17 20:10 Blood Line Anaerobic Blood Culture - Preliminary NO GROWTH IN 1 DAY Resulted Administered Medications Medications (Trade) Dose Ordered Sig/Renard Route PRN Reason Start Time Stop Time Status Last Admin Dose Admin Zolpidem Tartrate (Ambien) 5 mg HS PRN PO INSOMNIA 07/11/17 21:15 08/28/17 02:54 Lorazepam (Ativan) 1 mg Q6H PRN PO MODERATE TO SEVERE ANXIETY 07/11/17 21:15 08/28/17 20:11 Acetaminophen (Tylenol) 650 mg Q4H PRN PO Pain 1-5 or Temp >101F 07/11/17 21:15 07/17/17 20:42 Al Hydrox/Mg Hydrox/Simethicone (Mag-Al Plus Susp Liq) 30 ml Q6H PRN PO DYSPEPSIA 07/11/17 21:15 08/09/17 20:48 Oxycodone/ Acetaminophen (Percocet 5-325 Mg) 1 tab Q6H PRN PO PAIN 6-10 07/11/17 21:15 08/28/17 20:11 Sodium Chloride (NS Flush) 2 ml BID IV FLUSH 07/15/17 21:00 08/30/17 09:00 Bacitracin (Baciguent Oint) 1 applic Q12HR TOPICAL 07/26/17 21:00 08/30/17 09:00 Heparin Sodium (Porcine) (Heparin Central Flush) 500 units UNSCH IV FLUSH 07/28/17 23:45 08/25/17 17:43 Haloperidol (Haldol) 10 mg DAILY PO 08/08/17 09:00 08/30/17 09:00 Haloperidol (Haldol) 15 mg HS PO 08/07/17 21:00 08/29/17 20:47 Enoxaparin Sodium (Lovenox Inj) 90 mg DAILY SQ 08/18/17 09:00 08/30/17 10:33 Anastrozole (Arimidex) 1 mg DAILY PO 08/29/17 11:00 08/30/17 10:32 Objective Remarks GENERAL: Middle aged female, sitting up in dayroom watching movie in [facility]. SKIN: Warm and dry. two indurated erythematous areas on the left arm. one is on the dorsal aspect and is approximately 2cm. the other is on the ventral aspect and is approximately 4cm. both are without fluctuance. the ventral lesion has an open area, but no drainage. while there is a zone of inflammation around both, no lymphangitis is seen. HEAD: Normocephalic. EYES: No injection or drainage. NECK: Supple, trachea midline. CARDIOVASCULAR: Regular rate and rhythm RESPIRATORY: Breath sounds equal bilaterally. No accessory muscle use. GASTROINTESTINAL: Abdomen soft, non-tender, nondistended. EXTREMITIES: No cyanosis, or edema. MUSCULOSKELETAL: Adequate muscle tone. NEUROLOGICAL: awake and alert. normal speech. no obvious focal deficit. Assessment/Plan Problem List: (1) HER2-positive carcinoma of right breast ICD Codes: C50.911 - Malignant neoplasm of unspecified site of right female breast Plan: plan on 12 weekly cycles of Taxol. She has had chemo 06/08/17, 06/15/17, 06/22/17, 06/29/17, 07/07/17, 07/14/17, 07/21/17 , 07/28/17, 08/04/17, 08/10/17 is week number 10, 08/18/17 is week 11, 08/25/17 is week 12. Herceptin/Perjeta is continued Q 3 weeks Goal Herceptin and Perjeta to continue for 52 weeks- which will be completed as outpatient. 08/25: week 12 taxol today. surgery in three weeks. 08/29: start AI (arimidex) today. discussed potential side effects including weight gain, hot flashes. 08/30: continue Arimidex (2) Deep venous thrombosis of left upper extremity ICD Codes: I82.622 - Acute embolism and thrombosis of deep veins of left upper extremity Plan: --on therapeutic dose Lovenox 90mg SQ q 24 hours --plan to start on coumadin post-surgery (3) Skin infection ICD Codes: L08.9 - Local infection of the skin and subcutaneous tissue, unspecified Plan: --I swabbed the lesion on her ventral forearm for wound culture and gram stain. however, I do not expect much of a yield as there really is not much drainage. --these skin infections have an appearance similar to MRSA SSTI. will dose with cleocin for MRSA coverage. Assessment 52y/o female with locally advanced HER2/shirley over expressing ER positive right breast cancer currently admitted for psychosis. 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 h/o Chemotherapy induced anemia. Plan 1. I have asked the nurses to draw a demarcation line around her erythema, so that if the infection spreads it can be quickly seen. 2. stop Keflex, start Cleocin for MRSA coverage 3. monitor blood counts, watch for fever. Attending Statement As discussed. Blood cultures through port negative. Culture gm stain still pending. Empiric oral therapy to tx MRSA. Idalia Disla Aug 30, 2017 15:15 Alexa Villareal MD Aug 30, 2017 20:32
[2017-08-30 18:00] VITALS: BP 117/59; PULSE 100; RESP 16; TEMP 98.3; O2SAT 97
[2017-08-30] MEDS: CLINDAMYCIN 150 MG CAP PO SCH ×2 (18:00→23:01)
[2017-08-30] MEDS: REMOVE OLD NICODERM (NICOTINE) PATCH T-DERMAL SCH (21:00)
[2017-08-31] MEDS: CLINDAMYCIN 150 MG CAP PO SCH ×2 (05:39→12:24)
[2017-08-31 06:00] VITALS: BP 108/57; PULSE 76; RESP 16; TEMP 97.5; O2SAT 96
--- NOTE | 2017-08-31 08:44 | HHI.PYPN ---
Subjective Chief Complaint: Psychosis Remarks Patient seen and examined in coverage for Dr. Enamorado. Chart reviewed. Case discussed with nursing staff. Patient slept uneventfully overnight. Case discussed with counselor. On my examination today, patient is oriented to hospital and [facility] and August,. She denies any SI or HI. Denies any AVH. Denies any side effects from medications. No acute physical complaints. Review of Systems ROS Limitations: Poor Historian Except as stated in HPI: all other systems reviewed are Neg Mental Status Examination Appearance: Appropriate Consciousness: Alert Orientation: Person, Place (Hospital in [facility]), Date/Time (August,) Motor Activity: Other (no motor abnormalities noted) Speech: Unremarkable Language: Adequate Fund of Knowledge: Inadequate Attention and Concentration: Adequate Memory: Impaired Mood: Appropriate Affect: Blunt Thought Process & Associations: Other (remains somewhat concrete) Thought Content: Preoccupations Hallucination Type: None Delusion Type: Other (remains a little guarded) Suicidal Ideation: No Suicidal Plan: No Suicidal Intention: No Homicidal Ideation: No Homicidal Plan: No Homicidal Intention: No Insight: Poor Judgment: Poor Results Labs Date/Time Source Procedure Growth Status 08/29/17 20:15 Blood Line Aerobic Blood Culture - Preliminary NO GROWTH IN 1 DAY Resulted 08/29/17 20:15 Blood Line Anaerobic Blood Culture - Preliminary NO GROWTH IN 1 DAY Resulted 08/30/17 14:53 Wound Scalp Gram Stain Pending Received 08/30/17 14:53 Wound Scalp Wound Culture Pending Received Labs reviewed Vitals/IOs Vital Signs Date Time Temp Pulse Resp B/P (MAP) Pulse Ox O2 Delivery O2 Flow Rate FiO2 08/31/17 06:00 97.5 76 16 108/57 (74) 96 Assessment & Plan Problem List: (1) Psychosis not due to substance or known physiological condition ICD Codes: F29 - Unspecified psychosis not due to a substance or known physiological condition Assessment & Plan Continue current psychotropics as ordered. Final Finisher input noted and appreciated. Continue to monitor on the inpatient unit. Continue other medications and care as ordered. Justification for Cont. Inpt. Risk for decompensation in less restrictive environment. Discharge Planning Per Fabrice Smith MD Aug 31, 2017 08:44
[2017-08-31] MEDS: ANASTROZOLE 1 MG TAB PO SCH (09:25)
[2017-08-31] MEDS: HALOPERIDOL 5 MG TAB PO SCH ×2 (09:25→21:00)
[2017-08-31] MEDS: ENOXAPARIN SODIUM 100 MG/ML SYRINGE SQ SCH (09:26)
[2017-08-31] MEDS: BACITRACIN TOP OINT 15 GM TUBE TOPICAL SCH ×2 (09:26→21:00)
[2017-08-31] MEDS: SODIUM CHLORIDE 0.9% FLUSH 10 ML FLUSH IV FLUSH SCH ×2 (09:32→21:00)
--- NOTE | 2017-08-31 17:44 | PD.ONC.PN ---
Subjective Subjective Remarks Afebrile Patient resting in bed taking a nap on approach She reports she picked her arm and it is now draining Denies chills Objective Data Date Time Temp Pulse Resp B/P (MAP) Pulse Ox O2 Delivery O2 Flow Rate FiO2 08/31/17 06:00 97.5 76 16 108/57 (74) 96 08/30/17 18:00 98.3 100 16 117/59 (78) 97 Result Diagram: 08/29/172014 Culture Results Microbiology Date/Time Source Procedure Growth Status 08/29/17 20:15 Blood Line Aerobic Blood Culture - Preliminary NO GROWTH IN 2 DAYS Resulted 08/29/17 20:15 Blood Line Anaerobic Blood Culture - Preliminary NO GROWTH IN 2 DAYS Resulted 08/29/17 20:10 Blood Line Aerobic Blood Culture - Preliminary NO GROWTH IN 2 DAYS Resulted 08/29/17 20:10 Blood Line Anaerobic Blood Culture - Preliminary NO GROWTH IN 2 DAYS Resulted 08/30/17 14:53 Wound Scalp Gram Stain - Final Resulted 08/30/17 14:53 Wound Culture - Preliminary S. Aureus Mrsa Resulted Administered Medications Medications (Trade) Dose Ordered Sig/Renard Route PRN Reason Start Time Stop Time Status Last Admin Dose Admin Zolpidem Tartrate (Ambien) 5 mg HS PRN PO INSOMNIA 07/11/17 21:15 08/28/17 02:54 Lorazepam (Ativan) 1 mg Q6H PRN PO MODERATE TO SEVERE ANXIETY 07/11/17 21:15 08/28/17 20:11 Acetaminophen (Tylenol) 650 mg Q4H PRN PO Pain 1-5 or Temp >101F 07/11/17 21:15 07/17/17 20:42 Al Hydrox/Mg Hydrox/Simethicone (Mag-Al Plus Susp Liq) 30 ml Q6H PRN PO DYSPEPSIA 07/11/17 21:15 08/09/17 20:48 Oxycodone/ Acetaminophen (Percocet 5-325 Mg) 1 tab Q6H PRN PO PAIN 6-10 07/11/17 21:15 08/28/17 20:11 Sodium Chloride (NS Flush) 2 ml BID IV FLUSH 07/15/17 21:00 08/31/17 09:32 Bacitracin (Baciguent Oint) 1 applic Q12HR TOPICAL 07/26/17 21:00 08/31/17 09:26 Heparin Sodium (Porcine) (Heparin Central Flush) 500 units UNSCH IV FLUSH 07/28/17 23:45 08/25/17 17:43 Haloperidol (Haldol) 10 mg DAILY PO 08/08/17 09:00 08/31/17 09:25 Haloperidol (Haldol) 15 mg HS PO 08/07/17 21:00 08/30/17 22:31 Enoxaparin Sodium (Lovenox Inj) 90 mg DAILY SQ 08/18/17 09:00 08/31/17 09:26 Anastrozole (Arimidex) 1 mg DAILY PO 08/29/17 11:00 08/31/17 09:25 Objective Remarks GENERAL: Middle aged female, asleep in bed on approach. She awakens easily to verbal stimuli. SKIN: Forearm has lg amt of erythema to dorsal and ventral aspect. Draining noted. HEAD: Normocephalic. EYES: No injection or drainage. NECK: Supple, trachea midline. CARDIOVASCULAR: Regular rate and rhythm RESPIRATORY: Breath sounds equal bilaterally. No accessory muscle use. GASTROINTESTINAL: Abdomen soft, non-tender, nondistended. EXTREMITIES: No cyanosis, or edema. MUSCULOSKELETAL: Adequate muscle tone. NEUROLOGICAL: awake and alert. normal speech. no obvious focal deficit. Assessment/Plan Problem List: (1) HER2-positive carcinoma of right breast ICD Codes: C50.911 - Malignant neoplasm of unspecified site of right female breast Plan: plan on 12 weekly cycles of Taxol. She has had chemo 06/08/17, 06/15/17, 06/22/17, 06/29/17, 07/07/17, 07/14/17, 07/21/17 , 07/28/17, 08/04/17, 08/10/17 is week number 10, 08/18/17 is week 11, 08/25/17 is week 12. Herceptin/Perjeta is continued Q 3 weeks Goal Herceptin and Perjeta to continue for 52 weeks- which will be completed as outpatient. 08/25: week 12 taxol today. surgery in three weeks. 08/29: start AI (arimidex) today. discussed potential side effects including weight gain, hot flashes. 08/30: continue Arimidex (2) Deep venous thrombosis of left upper extremity ICD Codes: I82.622 - Acute embolism and thrombosis of deep veins of left upper extremity Plan: --on therapeutic dose Lovenox 90mg SQ q 24 hours --plan to start on coumadin post-surgery (3) Skin infection ICD Codes: L08.9 - Local infection of the skin and subcutaneous tissue, unspecified Plan: --Microbiology from wound shows MRSA We will treat patient with Bactrim DS twice daily 7 days Assessment 52y/o female with locally advanced HER2/shirley over expressing ER positive right breast cancer currently admitted for psychosis. 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 h/o Chemotherapy induced anemia. Plan 1. Stop Cleocin as there is concern for possible C. difficile with continued use 2. Start Bactrim DS twice daily 3. Monitor for fever Attending Statement The exam, history, and the medical decision-making described in the above note were completed with the assistance of the mid-level provider. I reviewed and agree with the findings presented. I attest that I had a [id number] encounter with the patient on the same day, and personally performed and documented my assessment and findings in the medical record. Pt seen and examined early in evening. Erythema L forearm worsen, pt reported by nursing to be scratching the L forearm , decline dressing. Scalp looks better, single nodule now evident, crust and DC cleaned away. Apparent no response to Cleocin with clinical worsening, furthermore risk for C- diff highest with cleocin. BC negative, pt not neutropenic but has been in hospital for some time. If skin lesion do not improve with Bactrim DS, we will consider Vancomycin. Pending sensitivities. Discussed w/ pt's nurse. Cheryl Jimenez Aug 31, 2017 17:44 Alexa Villareal MD Sep 01, 2017 00:17
[2017-08-31 19:13] VITALS: BP 147/82; PULSE 89; RESP 18; TEMP 98.3; O2SAT 95
[2017-08-31] MEDS: REMOVE OLD NICODERM (NICOTINE) PATCH T-DERMAL SCH (21:00)
[2017-08-31] MEDS: SULFAMETHOXAZOLE-TRIMETHOPRIM DS 800-160 MG TAB PO SCH (21:00)
[2017-09-01 06:00] VITALS: BP 135/100; PULSE 106; RESP 18; TEMP 98.1; O2SAT 95
[2017-09-01] MEDS: SODIUM CHLORIDE 0.9% FLUSH 10 ML FLUSH IV FLUSH SCH ×2 (09:00→20:09)
[2017-09-01] MEDS: SULFAMETHOXAZOLE-TRIMETHOPRIM DS 800-160 MG TAB PO SCH ×2 (09:01→20:56)
[2017-09-01] MEDS: ANASTROZOLE 1 MG TAB PO SCH (09:01)
[2017-09-01] MEDS: ENOXAPARIN SODIUM 100 MG/ML SYRINGE SQ SCH (09:01)
[2017-09-01] MEDS: HALOPERIDOL 5 MG TAB PO SCH ×2 (09:02→20:55)
[2017-09-01] MEDS: BACITRACIN TOP OINT 15 GM TUBE TOPICAL SCH ×2 (09:02→20:56)
--- NOTE | 2017-09-01 09:37 | PD.TTN ---
Patient Problems 1. Discharge planning 2. Medication compliance 3. Knowledge deficit 4. Lack of coping skills Progress Toward Goals Provider Present: Dr. Yen Bryant Provider Input: 09/01/2017; Patient is pending medical treatment and [facility] 08/28/2017: Patient is pending [facility], breast removal surgery 08/23/2017: Patient has one remaining Chemo treatment and within three weeks she will have surgery 08/21/2017; Patient is a state wait, still disorganized, requires stable appropriate dc placement for medical and mental health purpose. 08/16/2017;Patient is a state wait, has one more treatment and will be able to be transferred to [facility] 08/07/2017; patient is a state wait or will require a structure discharge environment 07/24/2017; per Dr. Enamorado, patient continues to display inappropriate behavior, requesting redirection with thoughts/mood. 07/19/17 remains in need for stabilization and is lacking insight and remains at high risk for decompensation 07/17/17 patient is receiving chemo and presenting different than last hospitalization which she was manic, now she is withdrawn and limited in talking and interacting 07/14/17 patient came from independent living at [facility] and appears not being able to return there - she can benefit from an SNF placement Nurse(s) Present: RN Nurse(s) Input: 09/01/2017; patient is positive for MRSA, taking her meds, and eating meals 08/28/2017: Patient is compliant with meals, and treatment 08/23/2017; patient is compliant with medication, meals requires some motivation and coaching 08/21/2017; patient is eating and taking her medication, needs prompting and encouragement 08/16/2017: patient is eating taking her medication, has no motivation and isolate most of the day. Patient is eating and very redirectable Psychiatric Counselors Present: Fernanda Garrett [facility] Psych Therapist Input: 09/01/2017; patient is encouraged with treatment, and groups 08/28/2017: Patient is encouraged with meals, treatment and groups 08/23/2017; counselor will call previous facilities to inquire if they would accept patient after surgery is complete 08/21/2017: counselor will encourage patient with activities 08/16/2017; patient is enouraged with meals, mood, and group participation 08/07/2017; patient is encouraged with meals, mood and medication 07/24/2017; patient is encouraged with mood, meals and medication compliance 07/19/17 still erratic, mood unstable, disorganized thoughts continue , needs at least FIFI if not more care 07/17/17 will work on SNF facilities and refer patient today, she remains uncooperative with this therapist 07/14/17 patient refused to talk to this counselor twice yesterday, pretending to sleep she is reported by nurses to remain in bed without interacting and irritable Group Spec/RT/OT/DONATO Present: Onel Devi, OT Group Spec/RT/OT/DONATO Input: 09/01/2017; per to MRSA patient had been attending groups now she is unable 08/28/2017: Patient attends select groups, with little participation 08/23/2017: Patient has been attending groups; however she is easily overwhelmed; complete simple task 08/16/2017; patient will not participate with groups or activities 08/07/2017; patient is unable to participate with groups or activities 07/24/2017; patient continues to be unable to participate with groups and activities 07/19/17 cannot tolerate groups and non reality based thoughts 07/17/17 does not attend group and does not tolerate 07/14/17 patient does not attend groups and does not tolerate groups Documentation Scribe: Fernanda Dupree [facility] Sep 01, 2017 09:37
--- NOTE | 2017-09-01 12:02 | HHI.PYPN ---
Subjective Chief Complaint: Psychosis Remarks Patient seen and examined in coverage for Dr. Enamorado. Chart reviewed. Case discussed with nursing staff. No behavioral issues noted. Case discussed with counselor. On my examination today, patient denies SI or HI. She is calm and cooperative with interview. No frankly psychotic material verbalized today. No side effects from medications. No acute physical complaints. Review of Systems ROS Limitations: Poor Historian Except as stated in HPI: all other systems reviewed are Neg Mental Status Examination Appearance: Appropriate Consciousness: Alert Orientation: Person, Place (hospital) Motor Activity: Other (no motoric abnormalities appreciated) Speech: Unremarkable Language: Adequate Fund of Knowledge: Inadequate Attention and Concentration: Adequate Memory: Impaired Mood: Other (calm) Affect: Blunt Thought Process & Associations: Other (remains somewhat concrete) Thought Content: Preoccupations Hallucination Type: None Delusion Type: None Suicidal Ideation: No Suicidal Plan: No Suicidal Intention: No Homicidal Ideation: No Homicidal Plan: No Homicidal Intention: No Insight: Poor Judgment: Poor Results Labs Date/Time Source Procedure Growth Status 08/29/17 20:15 Blood Line Aerobic Blood Culture - Preliminary NO GROWTH IN 3 DAYS Resulted 08/29/17 20:15 Blood Line Anaerobic Blood Culture - Preliminary NO GROWTH IN 3 DAYS Resulted 08/30/17 14:53 Wound Scalp Gram Stain - Final Complete 08/30/17 14:53 Wound Culture - Final S. Aureus Mrsa Complete Labs reviewed Vitals/IOs Vital Signs Date Time Temp Pulse Resp B/P (MAP) Pulse Ox O2 Delivery O2 Flow Rate FiO2 09/01/17 06:00 98.1 106 18 135/100 (112) 95 Intake and Output 09/01/17 09/01/17 09/02/17 08:00 16:00 00:00 Intake Total 0 ml Balance 0 ml Assessment & Plan Problem List: (1) Psychosis not due to substance or known physiological condition ICD Codes: F29 - Unspecified psychosis not due to a substance or known physiological condition Assessment & Plan Continue current psychotropics as ordered. Hematology/oncology input noted and appreciated. Continue to monitor on the medical psychiatric unit. Continue other medications and care as ordered. Justification for Cont. Inpt. High risk for decompensation in less restrictive environment. Discharge Planning Counselor informs me that patient's case has been referred to the [facility] Fabrice Bryant MD Sep 01, 2017 12:02
[2017-09-01 16:15] VITALS: BP 148/74; PULSE 94; RESP 16; TEMP 97.7; O2SAT 97
--- NOTE | 2017-09-01 19:24 | PD.ONC.PN ---
Subjective Subjective Remarks "I'm not doing well"- referring to her psychiatric health Admits to squeezing the pustule in L forearm. Decline dressing or topical treatment. Objective Data Date Time Temp Pulse Resp B/P (MAP) Pulse Ox O2 Delivery O2 Flow Rate FiO2 09/01/17 16:15 97.7 94 16 148/74 (98) 97 09/01/17 06:00 98.1 106 18 135/100 (112) 95 09/01/17 09/01/17 09/01/17 07:00 15:00 23:00 Intake Total 0 ml 960 ml Balance 0 ml 960 ml Result Diagram: 08/29/172014 Culture Results Microbiology Date/Time Source Procedure Growth Status 08/29/17 20:15 Blood Line Aerobic Blood Culture - Preliminary NO GROWTH IN 3 DAYS Resulted 08/29/17 20:15 Blood Line Anaerobic Blood Culture - Preliminary NO GROWTH IN 3 DAYS Resulted 08/29/17 20:10 Blood Line Aerobic Blood Culture - Preliminary NO GROWTH IN 3 DAYS Resulted 08/29/17 20:10 Blood Line Anaerobic Blood Culture - Preliminary NO GROWTH IN 3 DAYS Resulted 08/30/17 14:53 Wound Scalp Gram Stain - Final Complete 08/30/17 14:53 Wound Culture - Final S. Aureus Mrsa Complete Administered Medications Medications (Trade) Dose Ordered Sig/Renard Route PRN Reason Start Time Stop Time Status Last Admin Dose Admin Zolpidem Tartrate (Ambien) 5 mg HS PRN PO INSOMNIA 07/11/17 21:15 08/28/17 02:54 Lorazepam (Ativan) 1 mg Q6H PRN PO MODERATE TO SEVERE ANXIETY 07/11/17 21:15 08/28/17 20:11 Acetaminophen (Tylenol) 650 mg Q4H PRN PO Pain 1-5 or Temp >101F 07/11/17 21:15 07/17/17 20:42 Al Hydrox/Mg Hydrox/Simethicone (Mag-Al Plus Susp Liq) 30 ml Q6H PRN PO DYSPEPSIA 07/11/17 21:15 08/09/17 20:48 Oxycodone/ Acetaminophen (Percocet 5-325 Mg) 1 tab Q6H PRN PO PAIN 6-10 07/11/17 21:15 08/28/17 20:11 Sodium Chloride (NS Flush) 2 ml BID IV FLUSH 07/15/17 21:00 09/01/17 09:00 Bacitracin (Baciguent Oint) 1 applic Q12HR TOPICAL 07/26/17 21:00 09/01/17 09:02 Heparin Sodium (Porcine) (Heparin Central Flush) 500 units UNSCH IV FLUSH 07/28/17 23:45 08/25/17 17:43 Miscellaneous Information 1 HS T-DERMAL 08/04/17 21:00 08/31/17 21:00 Haloperidol (Haldol) 10 mg DAILY PO 08/08/17 09:00 09/01/17 09:02 Haloperidol (Haldol) 15 mg HS PO 08/07/17 21:00 08/31/17 21:00 Enoxaparin Sodium (Lovenox Inj) 90 mg DAILY SQ 08/18/17 09:00 09/01/17 09:01 Anastrozole (Arimidex) 1 mg DAILY PO 08/29/17 11:00 09/01/17 09:01 Trimethoprim/ Sulfamethoxazole (Bactrim Ds 800-160 Mg) 1 tab Q12HR PO 08/31/17 21:00 09/07/17 09:01 09/01/17 09:01 Objective Remarks GENERAL: Middle aged female, sitting up watching TP SKIN: Forearm has nodule larger but erythema less. Scab over the nodule. Scalp nodule flatter, small ulceration, looks better. HEAD: Normocephalic. EYES: No injection or drainage. NECK: Supple, trachea midline. CARDIOVASCULAR: Regular rate and rhythm RESPIRATORY: Breath sounds equal bilaterally. No accessory muscle use. GASTROINTESTINAL: Abdomen soft, non-tender, nondistended. EXTREMITIES: No cyanosis, or edema. R axillary adenopathy. L arm swelling from DVT. MUSCULOSKELETAL: Adequate muscle tone. NEUROLOGICAL: awake and alert. normal speech. no obvious focal deficit. Assessment/Plan Problem List: (1) HER2-positive carcinoma of right breast ICD Codes: C50.911 - Malignant neoplasm of unspecified site of right female breast Plan: plan on 12 weekly cycles of Taxol. She has had chemo 06/08/17, 06/15/17, 06/22/17, 06/29/17, 07/07/17, 07/14/17, 07/21/17 , 07/28/17, 08/04/17, 08/10/17 is week number 10, 08/18/17 is week 11, 08/25/17 is week 12. Herceptin/Perjeta is continued Q 3 weeks Goal Herceptin and Perjeta to continue for 52 weeks- which will be completed as outpatient. 08/25: week 12 taxol today. surgery in three weeks. 08/29: start AI (arimidex) today. discussed potential side effects including weight gain, hot flashes. 08/30: continue Arimidex 09/01/17. Arimidex continue. Herceptin and Pertuzumab next week. Surgery the following week after [place]. (2) Deep venous thrombosis of left upper extremity ICD Codes: I82.622 - Acute embolism and thrombosis of deep veins of left upper extremity Plan: --on therapeutic dose Lovenox 90mg SQ q 24 hours --plan to start on coumadin post-surgery 09/01/17. Cont LMWH. Anticipate switch to Coumadin after surgery. (3) Skin infection ICD Codes: L08.9 - Local infection of the skin and subcutaneous tissue, unspecified Plan: --Microbiology from wound shows MRSA We will treat patient with Bactrim DS twice daily 7 days 09/01/17. Tolerating Bactrim. In some ways better, but pt picks at wound. Consult ID. Noted sensitivity to Bactrim. Blood culture through port negative. Assessment 52y/o female with locally advanced HER2/shirley over expressing ER positive right breast cancer currently admitted for psychosis. 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 h/o Chemotherapy induced anemia. Plan 1. Cont Bactrim 2. Consult ID 3. Plan for chemo next week w/ dual antibody 4. Surgery the week after. Alexa Villareal MD Sep 01, 2017 19:24
[2017-09-01] MEDS: REMOVE OLD NICODERM (NICOTINE) PATCH T-DERMAL SCH (20:10)
[2017-09-01] MEDS: ZOLPIDEM TARTRATE 5 MG TAB PO PRN (23:50)
[2017-09-02] MEDS: LORazepam 1 MG TAB PO PRN ×3 (03:06→18:04)
[2017-09-02 06:33] VITALS: BP 122/76; PULSE 85; RESP 17; TEMP 98.1; O2SAT 97
[2017-09-02] MEDS: SODIUM CHLORIDE 0.9% FLUSH 10 ML FLUSH IV FLUSH SCH ×2 (09:00→19:55)
[2017-09-02] MEDS: BACITRACIN TOP OINT 15 GM TUBE TOPICAL SCH ×2 (09:00→20:21)
[2017-09-02] MEDS: HALOPERIDOL 5 MG TAB PO SCH ×2 (09:13→20:22)
[2017-09-02] MEDS: SULFAMETHOXAZOLE-TRIMETHOPRIM DS 800-160 MG TAB PO SCH ×2 (09:13→20:21)
[2017-09-02] MEDS: ANASTROZOLE 1 MG TAB PO SCH (09:13)
[2017-09-02] MEDS: ENOXAPARIN SODIUM 100 MG/ML SYRINGE SQ SCH (09:14)
--- NOTE | 2017-09-02 09:50 | HHI.PYPN ---
Subjective Chief Complaint: Psychosis Remarks Patient seen for follow, chart reviewed. Discussion nursing staff reported the patient yesterday was worried about having referral to be transferred to [facility]. Patient was found lying hospital bed state that she has not been eating lately with decreased appetite, focused today on previous delusions of people having put bullets in her window feeling paranoid but redirectable. Patient agreed to sit up in progress this morning was noted to be more active this morning. Patient reported having some blood stools which she states will show the nurse It occurs. Review of Systems Except as stated in HPI: all other systems reviewed are Neg Mental Status Examination Appearance: Appropriate Consciousness: Alert Orientation: Person, Place (hospital) Motor Activity: Other (no motoric abnormalities appreciated) Speech: Unremarkable Language: Adequate Fund of Knowledge: Inadequate Attention and Concentration: Adequate Memory: Impaired Mood: Other (calm) Affect: Blunt Thought Process & Associations: Other (remains somewhat concrete) Thought Content: Preoccupations, Delusional Hallucination Type: None Delusion Type: Paranoid Suicidal Ideation: No Suicidal Plan: No Suicidal Intention: No Homicidal Ideation: No Homicidal Plan: No Homicidal Intention: No Insight: Poor Judgment: Poor Results Labs Date/Time Source Procedure Growth Status 08/29/17 20:15 Blood Line Aerobic Blood Culture - Preliminary NO GROWTH IN 3 DAYS Resulted 08/29/17 20:15 Blood Line Anaerobic Blood Culture - Preliminary NO GROWTH IN 3 DAYS Resulted 08/30/17 14:53 Wound Scalp Gram Stain - Final Complete 08/30/17 14:53 Wound Culture - Final S. Aureus Mrsa Complete Vitals/IOs Vital Signs Date Time Temp Pulse Resp B/P (MAP) Pulse Ox O2 Delivery O2 Flow Rate FiO2 09/02/17 06:33 98.1 85 17 122/76 (91) 97 Intake and Output 09/02/17 09/02/17 09/03/17 08:00 16:00 00:00 Intake Total 480 ml Balance 480 ml Assessment & Plan Problem List: (1) Psychosis not due to substance or known physiological condition ICD Codes: F29 - Unspecified psychosis not due to a substance or known physiological condition Assessment & Plan Patient this time noted to have some perseveration pupils having put bullets in her windows before as well as some paranoia today. Patient was able to be redirectable and encouraged to participate in continued adequate nutritional intake and participation in groups and activities she agreed. Continue current treatment. This is aware patient reported having bloody stools with stable continue to monitor. We will order CBC today. Continue to monitor mood and behavior. Discharge planning in progress. Justification for Cont. Inpt. At risk for further decompensation if at lower level of care Yadiel Enamorado MD Sep 02, 2017 09:50
[2017-09-02] MEDS: NICOTINE 21 MG/24 HR PATCH T-DERMAL PRN (11:25)
[2017-09-02 16:52] LABS: AUTOMATED NEUTROPHIL # 3.7 TH/MM3 (1.8-7.7); BASOPHIL # 0.1 TH/MM3 (0-0.2); BASOPHIL % 0.7 % (0.0-2.0); EOSINOPHIL # 0.2 TH/MM3 (0-0.4); EOSINOPHIL % 2.3 % (0.0-4.0); HEMATOCRIT 36.6 % (35.0-46.0); HEMOGLOBIN 12.8 GM/DL (11.6-15.3); LYMPH % 32.9 % (9.0-44.0); LYMPHOCYTE # 2.2 TH/MM3 (1.0-4.8); MEAN CELL VOLUME 91.9 FL (80.0-100.0); MEAN CORPUSCULAR HEMOGLOBIN 32.1 PG (27.0-34.0); MEAN CORPUSCULAR HGB CONC 34.9 % (32.0-36.0); MONO % 9.4 % (0.0-8.0); MONOCYTE # 0.6 TH/MM3 (0-0.9); NEUT % 54.7 % (16.0-70.0); PLATELET COUNT 322 TH/MM3 (150-450); RED BLOOD COUNT 3.98 MIL/MM3 (4.00-5.30); RED CELL DISTRIBUTION WIDTH 16.2 % (11.6-17.2); WHITE BLOOD COUNT 6.8 TH/MM3 (4.0-11.0)
--- NOTE | 2017-09-02 17:29 | PD.ONC.PN ---
Subjective Subjective Remarks Afebrile No acute complaints Objective Data Date Time Temp Pulse Resp B/P (MAP) Pulse Ox O2 Delivery O2 Flow Rate FiO2 09/02/17 06:33 98.1 85 17 122/76 (91) 97 09/02/17 09/02/17 09/02/17 07:00 15:00 23:00 Intake Total 1200 ml 240 ml Balance 1200 ml 240 ml Result Diagram: 09/02/17 1613 Laboratory Results Laboratory Tests Test 09/02/17 16:13 White Blood Count 6.8 TH/MM3 Red Blood Count 3.98 MIL/MM3 Hemoglobin 12.8 GM/DL Hematocrit 36.6 % Mean Corpuscular Volume 91.9 FL Mean Corpuscular Hemoglobin 32.1 PG Mean Corpuscular Hemoglobin Concent 34.9 % Red Cell Distribution Width 16.2 % Platelet Count 322 TH/MM3 Mean Platelet Volume 8.0 FL Neutrophils (%) (Auto) 54.7 % Lymphocytes (%) (Auto) 32.9 % Monocytes (%) (Auto) 9.4 % Eosinophils (%) (Auto) 2.3 % Basophils (%) (Auto) 0.7 % Neutrophils # (Auto) 3.7 TH/MM3 Lymphocytes # (Auto) 2.2 TH/MM3 Monocytes # (Auto) 0.6 TH/MM3 Eosinophils # (Auto) 0.2 TH/MM3 Basophils # (Auto) 0.1 TH/MM3 CBC Comment DIFF FINAL Differential Comment Administered Medications Medications (Trade) Dose Ordered Sig/Renard Route PRN Reason Start Time Stop Time Status Last Admin Dose Admin Zolpidem Tartrate (Ambien) 5 mg HS PRN PO INSOMNIA 07/11/17 21:15 09/01/17 23:50 Lorazepam (Ativan) 1 mg Q6H PRN PO MODERATE TO SEVERE ANXIETY 07/11/17 21:15 09/02/17 11:25 Acetaminophen (Tylenol) 650 mg Q4H PRN PO Pain 1-5 or Temp >101F 07/11/17 21:15 07/17/17 20:42 Al Hydrox/Mg Hydrox/Simethicone (Mag-Al Plus Susp Liq) 30 ml Q6H PRN PO DYSPEPSIA 07/11/17 21:15 08/09/17 20:48 Nicotine (Habitrol 21 Mg Patch.24 Hr) 1 patch DAILY PRN T-DERMAL nicotine craving 07/11/17 21:15 09/02/17 11:25 Oxycodone/ Acetaminophen (Percocet 5-325 Mg) 1 tab Q6H PRN PO PAIN 6-10 07/11/17 21:15 08/28/17 20:11 Sodium Chloride (NS Flush) 2 ml BID IV FLUSH 07/15/17 21:00 09/01/17 09:00 Bacitracin (Baciguent Oint) 1 applic Q12HR TOPICAL 07/26/17 21:00 09/02/17 09:00 Heparin Sodium (Porcine) (Heparin Central Flush) 500 units UNSCH IV FLUSH 07/28/17 23:45 08/25/17 17:43 Miscellaneous Information 1 HS T-DERMAL 08/04/17 21:00 08/31/17 21:00 Haloperidol (Haldol) 10 mg DAILY PO 08/08/17 09:00 09/02/17 09:13 Haloperidol (Haldol) 15 mg HS PO 08/07/17 21:00 09/01/17 20:55 Enoxaparin Sodium (Lovenox Inj) 90 mg DAILY SQ 08/18/17 09:00 09/02/17 09:14 Anastrozole (Arimidex) 1 mg DAILY PO 08/29/17 11:00 09/02/17 09:13 Trimethoprim/ Sulfamethoxazole (Bactrim Ds 800-160 Mg) 1 tab Q12HR PO 08/31/17 21:00 09/07/17 09:01 09/02/17 09:13 Objective Remarks GENERAL: Middle aged female, asleep in bed on approach. She awakens easily to verbal stimuli. SKIN: Forearm has improvement of erythema. Continuing to ooze. HEAD: Normocephalic. Minor scalp lesion; improved EYES: No injection or drainage. NECK: Supple, trachea midline. CARDIOVASCULAR: Regular rate and rhythm RESPIRATORY: Breath sounds equal bilaterally. No accessory muscle use. GASTROINTESTINAL: Abdomen soft, non-tender, nondistended. EXTREMITIES: No cyanosis, or edema. MUSCULOSKELETAL: Adequate muscle tone. NEUROLOGICAL: No obvious focal deficit. Assessment/Plan Problem List: (1) HER2-positive carcinoma of right breast ICD Codes: C50.911 - Malignant neoplasm of unspecified site of right female breast Plan: plan on 12 weekly cycles of Taxol. She has had chemo 12/28/17, 06/15/17, 06/22/17, 06/29/17, 07/07/17, 07/14/17, 07/21/17 , 07/28/17, 08/04/17, 08/10/17 is week number 10, 08/18/17 is week 11, 08/25/17 is week 12. Herceptin/Perjeta is continued Q 3 weeks Goal Herceptin and Perjeta to continue for 52 weeks- which will be completed as outpatient. 08/25: week 12 taxol today. surgery in three weeks. 08/29: start AI (arimidex) today. discussed potential side effects including weight gain, hot flashes. 08/30: continue Arimidex 09/01/17. Arimidex continue. Herceptin and Pertuzumab next week. Surgery the following week after [place]. (2) Deep venous thrombosis of left upper extremity ICD Codes: I82.622 - Acute embolism and thrombosis of deep veins of left upper extremity Plan: --on therapeutic dose Lovenox 90mg SQ q 24 hours --plan to start on coumadin post-surgery (3) Skin infection ICD Codes: L08.9 - Local infection of the skin and subcutaneous tissue, unspecified Plan: --Microbiology from wound shows MRSA We will treat patient with Bactrim DS twice daily 7 days Assessment 52y/o female with locally advanced HER2/shirley over expressing ER positive right breast cancer currently admitted for psychosis. 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 h/o Chemotherapy induced anemia. Plan 1. Continue Bactrim. 2. Monitor for fevers 3. Plan for Herceptin and Pertuzumab next week. 4. Pt to have surgery the week of September 11. Attending Statement The exam, history, and the medical decision-making described in the above note were completed with the assistance of the mid-level provider. I reviewed and agree with the findings presented. I attest that I had a [id number] encounter with the patient on the same day, and personally performed and documented my assessment and findings in the medical record.52 yoF with HER2+ER + breast cancer currently receiving neoadjuvant treatment under the direction of Dr. Villareal. She will be scheudled for surgical resection of breast cancer. Currently on antibiotic therapy for healing cellulitis of left arm. Ad[facility]. Cheryl Jimenez Sep 02, 2017 17:29 Emperatriz Guzman MD Sep 02, 2017 20:31
[2017-09-02 18:00] VITALS: BP 135/65; PULSE 92; RESP 16; TEMP 98.1; O2SAT 96
[2017-09-02] MEDS: REMOVE OLD NICODERM (NICOTINE) PATCH T-DERMAL SCH (19:55)
[2017-09-02] MEDS: ZOLPIDEM TARTRATE 5 MG TAB PO PRN (20:22)
[2017-09-03 05:59] VITALS: BP 111/65; PULSE 101; RESP 16; TEMP 98; O2SAT 98
[2017-09-03] MEDS: HALOPERIDOL 5 MG TAB PO SCH ×2 (08:09→21:22)
[2017-09-03] MEDS: NICOTINE 21 MG/24 HR PATCH T-DERMAL PRN (08:09)
[2017-09-03] MEDS: ENOXAPARIN SODIUM 100 MG/ML SYRINGE SQ SCH (08:09)
[2017-09-03] MEDS: ANASTROZOLE 1 MG TAB PO SCH (08:10)
[2017-09-03] MEDS: BACITRACIN TOP OINT 15 GM TUBE TOPICAL SCH ×2 (08:10→21:00)
[2017-09-03] MEDS: SULFAMETHOXAZOLE-TRIMETHOPRIM DS 800-160 MG TAB PO SCH (08:10)
[2017-09-03] MEDS: SODIUM CHLORIDE 0.9% FLUSH 10 ML FLUSH IV FLUSH SCH ×2 (09:00→21:00)
--- NOTE | 2017-09-03 10:55 | HHI.PYPN ---
Subjective Chief Complaint: Psychosis Remarks Patient seen for follow up, chart reviewed. Discussion nursing staff reported the patient was tearful last night and preservative on her be transferred to [facility]. Patient states she is feeling better today". This morning, noted to be more engaging today. She reports eating and drinking well, denies any blood in stools recently. Patient aware that she is now on contact precautions and unable to attend group due to the same but will try to stay active during the day in her room. Review of Systems Except as stated in HPI: all other systems reviewed are Neg Mental Status Examination Appearance: Appropriate Consciousness: Alert Orientation: Person, Place (hospital) Motor Activity: Other (no motoric abnormalities appreciated) Speech: Unremarkable Language: Adequate Fund of Knowledge: Inadequate Attention and Concentration: Adequate Memory: Impaired Mood: Other (calm) Affect: Blunt Thought Process & Associations: Other (remains somewhat concrete) Thought Content: Preoccupations, Delusional Hallucination Type: None Delusion Type: Paranoid Suicidal Ideation: No Suicidal Plan: No Suicidal Intention: No Homicidal Ideation: No Homicidal Plan: No Homicidal Intention: No Insight: Poor Judgment: Poor Results Labs Test 09/02/17 16:13 White Blood Count 6.8 TH/MM3 Red Blood Count 3.98 MIL/MM3 Hemoglobin 12.8 GM/DL Hematocrit 36.6 % Mean Corpuscular Volume 91.9 FL Mean Corpuscular Hemoglobin 32.1 PG Mean Corpuscular Hemoglobin Concent 34.9 % Red Cell Distribution Width 16.2 % Platelet Count 322 TH/MM3 Mean Platelet Volume 8.0 FL Neutrophils (%) (Auto) 54.7 % Lymphocytes (%) (Auto) 32.9 % Monocytes (%) (Auto) 9.4 % Eosinophils (%) (Auto) 2.3 % Basophils (%) (Auto) 0.7 % Neutrophils # (Auto) 3.7 TH/MM3 Lymphocytes # (Auto) 2.2 TH/MM3 Monocytes # (Auto) 0.6 TH/MM3 Eosinophils # (Auto) 0.2 TH/MM3 Basophils # (Auto) 0.1 TH/MM3 CBC Comment DIFF FINAL Differential Comment Date/Time Source Procedure Growth Status 08/29/17 20:15 Blood Line Aerobic Blood Culture - Preliminary NO GROWTH IN 4 DAYS Resulted 08/29/17 20:15 Blood Line Anaerobic Blood Culture - Preliminary NO GROWTH IN 4 DAYS Resulted 08/30/17 14:53 Wound Scalp Gram Stain - Final Complete 08/30/17 14:53 Wound Culture - Final S. Aureus Mrsa Complete Vitals/IOs Vital Signs Date Time Temp Pulse Resp B/P (MAP) Pulse Ox O2 Delivery O2 Flow Rate FiO2 09/03/17 05:59 98.0 101 16 111/65 (80) 98 Intake and Output 09/03/17 09/03/17 09/04/17 08:00 16:00 00:00 Intake Total 0 ml Balance 0 ml Assessment & Plan Problem List: (1) Psychosis not due to substance or known physiological condition ICD Codes: F29 - Unspecified psychosis not due to a substance or known physiological condition Assessment & Plan Patient this time continues with occasional episodes of perseveration or her missing daughter and most recently anxious about going to [facility]. Patient has not had any behavioral disturbances. Repeat CBC showed normal results. Nursing staff advised to look out for blood in stools as patient reported this yesterday. Continue current treatment. Discharge planning in progress. Justification for Cont. Inpt. At risk for further decompensation if at lower level of care Discharge Planning Referral to [facility] Yadiel Enamorado MD Sep 03, 2017 10:55
--- NOTE | 2017-09-03 17:47 | PD.ID.CON ---
History of Present Illness Service ID Consult Requested By Dr Villareal Reason for Consult LUE abscess Primary Care Physician No Primary Care Physician Diagnoses: History of Present Illness Patient is a 52-year-old woman brought in under [employer] act for concern of patient's ability to care for self as it was reported patient was not eating and resurgence of psychotic symptoms in the context of not adherence to treatment. Patient found on chest CT to have right breast mass. Lymph node biopsy consistent with adenocarcinoma consistent with breast primary. Pt is receiving both psychiatric treatment as well as neoadjuvant chemotherapy. She developped painful lesions on scalp and LUE LUE lesion is painfuil and is draining She was started on bactrim, she thinks its better No fever or leukocytosis Review of Systems ROS Limitations: Poor Historian Past Family Social History Allergies: Coded Allergies: No Known Allergies (Unverified , 05/25/17) Past Medical History PMH Breast cancer Catheter associated thrombus Past Surgical History Right axillary biopsy, Port-A-Cath placement. Active Ordered Medications Medications where reviewed in EMR Antibiotics Include: bactrim DS bid Family History Poor historian due to disorganization and unable to assess Social History Single, domiciled [place], unemployed on SSI. Patient has 1 daughter whom she states has not had contact with for several years. Physical Exam Vital Signs Vital Signs Date Time Temp Pulse Resp B/P (MAP) Pulse Ox O2 Delivery O2 Flow Rate FiO2 09/03/17 05:59 98.0 101 16 111/65 (80) 98 09/02/17 18:00 98.1 92 16 135/65 (88) 96 Physical Exam CONSTITUTIONAL/GENERAL: This is an adequately nourished patient, in no apparent distress. TUBES/LINES/DRAINS: SKIN: No jaundice, rashes Dry scalp lesion on L parietal area, n drainage, no redness L UE : small fluctuant lesion on LUE with odorless purulencce easily expressed HEAD: Atraumatic. Normocephalic. EYES: Pupils equal and round and reactive. Extraocular motions intact. No scleral icterus. No injection or drainage. Fundi not examined. ENT: Hearing grossly normal. Nose without bleeding or purulent drainage. Throat without visible erythema, exudates, masses, or lesions. NECK: Trachea midline. Supple, nontender. CARDIOVASCULAR: Regular rate and rhythm without murmurs, gallops, or rubs. No JVD. Peripheral pulses symmetric. RESPIRATORY/CHEST: Symmetric, unlabored respirations. Clear to auscultation. Breath sounds equal bilaterally. No wheezes, rales, or rhonchi. GASTROINTESTINAL: Abdomen soft, non-tender, nondistended. No hepato-splenomegaly , or palpable masses. No guarding. Bowel sounds present. GENITOURINARY: Without palpable bladder distension. MUSCULOSKELETAL: Extremities without clubbing, cyanosis, or edema. No joint tenderness or effusion noted. No calf tenderness. No mottling or clubbing. LYMPHATICS: No palpable cervical or supraclavicular adenopathy. NEUROLOGICAL: Awake and alert. Motor and sensory grossly within normal limits. Follows commands. Clear , but disorganised speech. Moves all extremities. PSYCHIATRIC: No apparent hallucinations or other psychotic thought process. Laboratory Date/Time Source Procedure Growth Status 08/29/17 20:15 Blood Line Aerobic Blood Culture - Final NO GROWTH IN 5 DAYS Complete 08/29/17 20:15 Blood Line Anaerobic Blood Culture - Final NO GROWTH IN 5 DAYS Complete 08/30/17 14:53 Wound Scalp Gram Stain - Final Complete 08/30/17 14:53 Wound Culture - Final S. Aureus Mrsa Complete Result Diagram: 09/02/17 1613 Imaging Last Impressions Upper Extremity Ultrasound 08/17/17 0000 Signed Impressions: Service Date/Time: August 09:44 - CONCLUSION: 1. Enlarged right axillary lymph node seen previously continues to decrease in size, previously measuring 1.7 cm in diameter and now normal in size measuring a maximum of 8 mm in diameter. 2. No new lesions identified Manjinder Jones MD Toe X-Ray 07/14/17 0000 Signed Impressions: Service Date/Time: Friday, July 14, 2017 10:34 - CONCLUSION: 1. Small exostosis of the toe. 2. No acute fracture or dislocation. Lj Clark MD Assessment and Plan Assessment and Plan Breast ca [place] acted L forearm abscess, MRSA _ S to bactrim, but apparently clinicallyn failure - dc bactrim - will try doxycycline Jaimie Ewing MD Sep 03, 2017 17:47
[2017-09-03 18:25] VITALS: BP 118/79; PULSE 84; RESP 16; TEMP 98.6; O2SAT 96
[2017-09-03] MEDS: REMOVE OLD NICODERM (NICOTINE) PATCH T-DERMAL SCH (21:00)
[2017-09-03] MEDS: DOXYCYCLINE HYCLATE 100 MG CAP PO SCH (21:00)
[2017-09-04 08:55] LABS: AUTOMATED NEUTROPHIL # 2.9 TH/MM3 (1.8-7.7); BASOPHIL % 0.7 % (0.0-2.0); EOSINOPHIL # 0.2 TH/MM3 (0-0.4); EOSINOPHIL % 2.8 % (0.0-4.0); HEMATOCRIT 38.7 % (35.0-46.0); HEMOGLOBIN 13.4 GM/DL (11.6-15.3); LYMPH % 32.3 % (9.0-44.0); LYMPHOCYTE # 1.8 TH/MM3 (1.0-4.8); MEAN CELL VOLUME 91.6 FL (80.0-100.0); MEAN CORPUSCULAR HEMOGLOBIN 31.7 PG (27.0-34.0); MEAN CORPUSCULAR HGB CONC 34.7 % (32.0-36.0); MONO % 11.9 % (0.0-8.0); MONOCYTE # 0.7 TH/MM3 (0-0.9); NEUT % 52.3 % (16.0-70.0); PLATELET COUNT 369 TH/MM3 (150-450); RED BLOOD COUNT 4.22 MIL/MM3 (4.00-5.30); WHITE BLOOD COUNT 5.6 TH/MM3 (4.0-11.0)
[2017-09-04] MEDS: ANASTROZOLE 1 MG TAB PO SCH (09:37)
[2017-09-04] MEDS: HALOPERIDOL 5 MG TAB PO SCH ×2 (09:37→21:02)
[2017-09-04] MEDS: SODIUM CHLORIDE 0.9% FLUSH 10 ML FLUSH IV FLUSH SCH ×2 (09:38→21:00)
[2017-09-04] MEDS: DOXYCYCLINE HYCLATE 100 MG CAP PO SCH ×2 (09:38→21:02)
[2017-09-04] MEDS: ENOXAPARIN SODIUM 100 MG/ML SYRINGE SQ SCH (09:38)
[2017-09-04] MEDS: BACITRACIN TOP OINT 15 GM TUBE TOPICAL SCH ×2 (09:39→21:02)
[2017-09-04 10:19] LABS: BANDS 4 % (0-6); BASOPHILS 1 % (0-2); BLASTS 1 % (0-0); LYMPHOCYTES 25 % (9-44); METAMYELOCYTES 4 % (0-1); MONOCYTES 10 % (0-8); MYELOCYTES 2 % (0-0); NEUTROPHIL # MANUAL DIFF 3.4 TH/MM3 (1.8-7.7); POLYS (SEG NEUTROPHILS) 50 % (16-70)
--- NOTE | 2017-09-04 10:51 | PD.ONC.PN ---
Subjective Subjective Remarks Afebrile Patient reports she had a hard time sleeping last night Denies pain No other acute complaints Objective Data Date Time Temp Pulse Resp B/P (MAP) Pulse Ox O2 Delivery O2 Flow Rate FiO2 09/03/17 18:25 98.6 84 16 118/79 (92) 96 09/04/17 09/04/17 09/04/17 06:59 14:59 22:59 Intake Total 480 ml 480 ml Balance 480 ml 480 ml Result Diagram: 09/04/17 0753 Laboratory Results Laboratory Tests Test 09/04/17 07:53 White Blood Count 5.6 TH/MM3 Red Blood Count 4.22 MIL/MM3 Hemoglobin 13.4 GM/DL Hematocrit 38.7 % Mean Corpuscular Volume 91.6 FL Mean Corpuscular Hemoglobin 31.7 PG Mean Corpuscular Hemoglobin Concent 34.7 % Red Cell Distribution Width 16.0 % Platelet Count 369 TH/MM3 Mean Platelet Volume 8.0 FL Neutrophils (%) (Auto) 52.3 % Lymphocytes (%) (Auto) 32.3 % Monocytes (%) (Auto) 11.9 % Eosinophils (%) (Auto) 2.8 % Basophils (%) (Auto) 0.7 % Neutrophils # (Auto) 2.9 TH/MM3 Lymphocytes # (Auto) 1.8 TH/MM3 Monocytes # (Auto) 0.7 TH/MM3 Eosinophils # (Auto) 0.2 TH/MM3 Basophils # (Auto) 0.0 TH/MM3 CBC Comment AUTO DIFF Differential Total Cells Counted 100 Neutrophils % (Manual) 50 % Band Neutrophils % 4 % Lymphocytes % 25 % Monocytes % 10 % Eosinophils % 3 % Basophils % 1 % Neutrophils # (Manual) 3.4 TH/MM3 Metamyelocytes 4 % Myelocytes 2 % Differential Comment FINAL DIFF MANUAL Blastocytes 1 % Platelet Estimate NORMAL Platelet Morphology Comment NORMAL Red Cell Morphology Comment NORMAL Administered Medications Medications (Trade) Dose Ordered Sig/Renard Route PRN Reason Start Time Stop Time Status Last Admin Dose Admin Zolpidem Tartrate (Ambien) 5 mg HS PRN PO INSOMNIA 07/11/17 21:15 09/02/17 20:22 Lorazepam (Ativan) 1 mg Q6H PRN PO MODERATE TO SEVERE ANXIETY 07/11/17 21:15 09/02/17 18:04 Acetaminophen (Tylenol) 650 mg Q4H PRN PO Pain 1-5 or Temp >101F 07/11/17 21:15 07/17/17 20:42 Al Hydrox/Mg Hydrox/Simethicone (Mag-Al Plus Susp Liq) 30 ml Q6H PRN PO DYSPEPSIA 07/11/17 21:15 08/09/17 20:48 Nicotine (Habitrol 21 Mg Patch.24 Hr) 1 patch DAILY PRN T-DERMAL nicotine craving 07/11/17 21:15 09/03/17 08:09 Oxycodone/ Acetaminophen (Percocet 5-325 Mg) 1 tab Q6H PRN PO PAIN 6-10 07/11/17 21:15 08/28/17 20:11 Sodium Chloride (NS Flush) 2 ml BID IV FLUSH 07/15/17 21:00 09/01/17 09:00 Bacitracin (Baciguent Oint) 1 applic Q12HR TOPICAL 07/26/17 21:00 09/04/17 09:39 Heparin Sodium (Porcine) (Heparin Central Flush) 500 units UNSCH IV FLUSH 07/28/17 23:45 08/25/17 17:43 Miscellaneous Information 1 HS T-DERMAL 08/04/17 21:00 08/31/17 21:00 Haloperidol (Haldol) 10 mg DAILY PO 08/08/17 09:00 09/04/17 09:37 Haloperidol (Haldol) 15 mg HS PO 08/07/17 21:00 09/03/17 21:22 Enoxaparin Sodium (Lovenox Inj) 90 mg DAILY SQ 08/18/17 09:00 09/04/17 09:38 Anastrozole (Arimidex) 1 mg DAILY PO 08/29/17 11:00 09/04/17 09:37 Doxycycline Hyclate (Vibramycin) 100 mg BID PO 09/03/17 21:00 09/04/17 09:38 Objective Remarks GENERAL: Middle aged female, asleep in bed on approach. She awakens easily to verbal stimuli. SKIN: Erythema on forearms greatly improved. No oozing on today's visit. HEAD: Normocephalic. Scalp lesion almost healed. EYES: No injection or drainage. NECK: Supple, trachea midline. CARDIOVASCULAR: Regular rate and rhythm RESPIRATORY: Breath sounds equal bilaterally. No accessory muscle use. GASTROINTESTINAL: Abdomen soft, non-tender, nondistended. EXTREMITIES: No cyanosis, or edema. MUSCULOSKELETAL: Adequate muscle tone. NEUROLOGICAL: No obvious focal deficit. Assessment/Plan Problem List: (1) HER2-positive carcinoma of right breast ICD Codes: C50.911 - Malignant neoplasm of unspecified site of right female breast Plan: plan on 12 weekly cycles of Taxol. She has had chemo 06/08/17, 06/15/17, 06/22/17, 06/29/17, 07/07/17, 07/14/17, 07/21/17 , 07/28/17, 08/04/17, 08/10/17 is week number 10, 08/18/17 is week 11, 08/25/17 is week 12. Herceptin/Perjeta is continued Q 3 weeks Goal Herceptin and Perjeta to continue for 52 weeks- which will be completed as outpatient. (2) Deep venous thrombosis of left upper extremity ICD Codes: I82.622 - Acute embolism and thrombosis of deep veins of left upper extremity Plan: --on therapeutic dose Lovenox 90mg SQ q 24 hours --plan to start on coumadin post-surgery (3) Skin infection ICD Codes: L08.9 - Local infection of the skin and subcutaneous tissue, unspecified Plan: --Microbiology from wound shows MRSA --ID following --Patient on doxycycline Assessment 52y/o female with locally advanced HER2/shirley over expressing ER positive right breast cancer currently admitted for psychosis. 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 h/o Chemotherapy induced anemia. Plan 1. Noted change of antibiotic from Bactrim to doxycycline 2. Cellulitis greatly improved; continue antibiotics 3. Trastuzumab/Pertuzumab to be given on Monday this week as scheduled for every 3 week dosing. 4. Pt to have surgery the week of September 11. Attending Statement The exam, history, and the medical decision-making described in the above note were completed with the assistance of the mid-level provider. I reviewed and agree with the findings presented. I attest that I had a [id number] encounter with the patient on the same day, and personally performed and documented my assessment and findings in the medical record. pt seen and examined. clinically improved. many questions regarding surgery and how it is done, refer to Dr. Gamenthaler to explain. cont plans for chemo on with Herceptin and Pertuzumab Echo normal. Scalp and L arm lesions improving on doxycycline. Appreciate ID consult. Cheryl Jimenez Sep 04, 2017 10:51 Alexa Villareal MD Sep 04, 2017 19:20
--- NOTE | 2017-09-04 12:00 | HHI.PYPN ---
Subjective Chief Complaint: Psychosis Remarks Patient seen and examined. Chart reviewed. Case discussed with nursing staff. No behavioral issues noted. Case discussed with counselor. On my examination today, the patient expresses some anxiety about upcoming surgery for breast cancer. We process this briefly. We also discussed discharge planning in response to patient's questioning. No SI/HI. Denies side effects from medications. No acute physical complaints. Seems fairly relevant and appropriate overall in conversation today. Review of Systems ROS Limitations: Poor Historian Except as stated in HPI: all other systems reviewed are Neg Mental Status Examination Appearance: Appropriate Consciousness: Alert Orientation: Person, Place (at least) Motor Activity: Other (no abnormal motor movements noted) Speech: Unremarkable Language: Adequate Fund of Knowledge: Inadequate Attention and Concentration: Adequate Memory: Impaired Mood: Other (remains calm) Affect: Blunt Thought Process & Associations: Other (fairly linear but somewhat concrete) Thought Content: Appropriate Hallucination Type: None Delusion Type: None (does not verbalize any delusional material today) Suicidal Ideation: No Suicidal Plan: No Suicidal Intention: No Homicidal Ideation: No Homicidal Plan: No Homicidal Intention: No Insight: Poor Judgment: Poor Results Labs Test 09/04/17 07:53 White Blood Count 5.6 TH/MM3 Red Blood Count 4.22 MIL/MM3 Hemoglobin 13.4 GM/DL Hematocrit 38.7 % Mean Corpuscular Volume 91.6 FL Mean Corpuscular Hemoglobin 31.7 PG Mean Corpuscular Hemoglobin Concent 34.7 % Red Cell Distribution Width 16.0 % Platelet Count 369 TH/MM3 Mean Platelet Volume 8.0 FL Neutrophils (%) (Auto) 52.3 % Lymphocytes (%) (Auto) 32.3 % Monocytes (%) (Auto) 11.9 % Eosinophils (%) (Auto) 2.8 % Basophils (%) (Auto) 0.7 % Neutrophils # (Auto) 2.9 TH/MM3 Lymphocytes # (Auto) 1.8 TH/MM3 Monocytes # (Auto) 0.7 TH/MM3 Eosinophils # (Auto) 0.2 TH/MM3 Basophils # (Auto) 0.0 TH/MM3 CBC Comment AUTO DIFF Differential Total Cells Counted 100 Neutrophils % (Manual) 50 % Band Neutrophils % 4 % Lymphocytes % 25 % Monocytes % 10 % Eosinophils % 3 % Basophils % 1 % Neutrophils # (Manual) 3.4 TH/MM3 Metamyelocytes 4 % Myelocytes 2 % Differential Comment FINAL DIFF MANUAL Blastocytes 1 % Platelet Estimate NORMAL Platelet Morphology Comment NORMAL Red Cell Morphology Comment NORMAL Date/Time Source Procedure Growth Status 08/29/17 20:15 Blood Line Aerobic Blood Culture - Final NO GROWTH IN 5 DAYS Complete 08/29/17 20:15 Blood Line Anaerobic Blood Culture - Final NO GROWTH IN 5 DAYS Complete 08/30/17 14:53 Wound Scalp Gram Stain - Final Complete 08/30/17 14:53 Wound Culture - Final S. Aureus Mrsa Complete Labs reviewed Vitals/IOs Vital Signs Date Time Temp Pulse Resp B/P (MAP) Pulse Ox O2 Delivery O2 Flow Rate FiO2 09/03/17 18:25 98.6 84 16 118/79 (92) 96 Intake and Output 09/04/17 09/04/17 09/05/17 08:00 16:00 00:00 Intake Total 480 ml Balance 480 ml Assessment & Plan Problem List: (1) Psychosis not due to substance or known physiological condition ICD Codes: F29 - Unspecified psychosis not due to a substance or known physiological condition Assessment & Plan Continue current psychiatric medications. Continue to monitor on the inpatient unit. Cut In Worker input noted and appreciated. Continue other medications and care as ordered. Justification for Cont. Inpt. Risk for decompensation in less restrictive environment Discharge Planning Placement versus state hospitalization Fabrice Bryant MD Sep 04, 2017 12:00
[2017-09-04 18:26] VITALS: BP 123/71; PULSE 87; RESP 17; TEMP 98.6; O2SAT 96
[2017-09-04] MEDS: REMOVE OLD NICODERM (NICOTINE) PATCH T-DERMAL SCH (21:00)
[2017-09-05 04:34] VITALS: BP 109/53; PULSE 74; RESP 16; TEMP 98; O2SAT 97
[2017-09-05] MEDS: SODIUM CHLORIDE 0.9% FLUSH 10 ML FLUSH IV FLUSH SCH ×2 (09:04→20:53)
[2017-09-05] MEDS: ANASTROZOLE 1 MG TAB PO SCH (09:05)
[2017-09-05] MEDS: DOXYCYCLINE HYCLATE 100 MG CAP PO SCH ×2 (09:06→20:52)
[2017-09-05] MEDS: BACITRACIN TOP OINT 15 GM TUBE TOPICAL SCH ×2 (09:06→20:53)
[2017-09-05] MEDS: HALOPERIDOL 5 MG TAB PO SCH ×2 (09:06→20:52)
[2017-09-05] MEDS: ENOXAPARIN SODIUM 100 MG/ML SYRINGE SQ SCH (09:06)
--- NOTE | 2017-09-05 11:29 | HHI.PYPN ---
Subjective Chief Complaint: Psychosis Remarks Patient seen and examined. Chart reviewed. Case discussed with nursing staff. Case discussed in treatment team and counselor cardiopulmonary supervisor reports that patient is #14 on the [facility] wait list. On my examination today, patient seems fairly relevant in conversation. She denies any SI or HI. She reports that she is sleeping and eating well. She denies any side effects from medications. No acute physical complaints. Review of Systems ROS Limitations: Poor Historian Except as stated in HPI: all other systems reviewed are Neg Mental Status Examination Appearance: Appropriate Consciousness: Alert Orientation: Person, Place (at least) Motor Activity: Other (no motoric abnormalities noted) Speech: Unremarkable Language: Adequate Fund of Knowledge: Inadequate Attention and Concentration: Adequate Memory: Impaired Mood: Appropriate Affect: Blunt Thought Process & Associations: Other (linear but concrete) Thought Content: Appropriate Hallucination Type: None Delusion Type: None Suicidal Ideation: No Suicidal Plan: No Suicidal Intention: No Homicidal Ideation: No Homicidal Plan: No Homicidal Intention: No Insight: Poor Judgment: Poor Results Labs Date/Time Source Procedure Growth Status 08/29/17 20:15 Blood Line Aerobic Blood Culture - Final NO GROWTH IN 5 DAYS Complete 08/29/17 20:15 Blood Line Anaerobic Blood Culture - Final NO GROWTH IN 5 DAYS Complete 08/30/17 14:53 Wound Scalp Gram Stain - Final Complete 08/30/17 14:53 Wound Culture - Final S. Aureus Mrsa Complete Labs reviewed. Vitals/IOs Vital Signs Date Time Temp Pulse Resp B/P (MAP) Pulse Ox O2 Delivery O2 Flow Rate FiO2 09/05/17 04:34 98.0 74 16 109/53 (71) 97 Intake and Output 09/05/17 09/05/17 09/06/17 08:00 16:00 00:00 Intake Total 120 ml 720 ml Balance 120 ml 720 ml Assessment & Plan Problem List: (1) Psychosis not due to substance or known physiological condition ICD Codes: F29 - Unspecified psychosis not due to a substance or known physiological condition Assessment & Plan Continue current psychiatric medications as ordered. Hematology/oncology input noted and appreciated. Continue to monitor on the inpatient unit. Continue other medications and care as ordered. Justification for Cont. Inpt. Risk for decompensation in less restrictive environment. Discharge Planning [facility] referral. Fabrice Bryant MD Sep 05, 2017 11:29
--- NOTE | 2017-09-05 11:36 | PD.ONC.PN ---
Subjective Subjective Remarks Afebrile overnight. Patient resting in room in nad. No complaints. Objective Data Date Time Temp Pulse Resp B/P (MAP) Pulse Ox O2 Delivery O2 Flow Rate FiO2 09/05/17 04:34 98.0 74 16 109/53 (71) 97 09/04/17 18:26 98.6 87 17 123/71 (88) 96 09/05/17 09/05/17 09/05/17 07:00 15:00 23:00 Intake Total 120 ml 720 ml Balance 120 ml 720 ml Result Diagram: 09/04/17 0753 Administered Medications Medications (Trade) Dose Ordered Sig/Renard Route PRN Reason Start Time Stop Time Status Last Admin Dose Admin Zolpidem Tartrate (Ambien) 5 mg HS PRN PO INSOMNIA 07/11/17 21:15 09/02/17 20:22 Lorazepam (Ativan) 1 mg Q6H PRN PO MODERATE TO SEVERE ANXIETY 07/11/17 21:15 09/02/17 18:04 Acetaminophen (Tylenol) 650 mg Q4H PRN PO Pain 1-5 or Temp >101F 07/11/17 21:15 07/17/17 20:42 Al Hydrox/Mg Hydrox/Simethicone (Mag-Al Plus Susp Liq) 30 ml Q6H PRN PO DYSPEPSIA 07/11/17 21:15 08/09/17 20:48 Nicotine (Habitrol 21 Mg Patch.24 Hr) 1 patch DAILY PRN T-DERMAL nicotine craving 07/11/17 21:15 09/03/17 08:09 Oxycodone/ Acetaminophen (Percocet 5-325 Mg) 1 tab Q6H PRN PO PAIN 6-10 07/11/17 21:15 08/28/17 20:11 Sodium Chloride (NS Flush) 2 ml BID IV FLUSH 07/15/17 21:00 09/01/17 09:00 Bacitracin (Baciguent Oint) 1 applic Q12HR TOPICAL 07/26/17 21:00 09/05/17 09:06 Heparin Sodium (Porcine) (Heparin Central Flush) 500 units UNSCH IV FLUSH 07/28/17 23:45 08/25/17 17:43 Miscellaneous Information 1 HS T-DERMAL 08/04/17 21:00 08/31/17 21:00 Haloperidol (Haldol) 10 mg DAILY PO 08/08/17 09:00 09/05/17 09:06 Haloperidol (Haldol) 15 mg HS PO 08/07/17 21:00 09/04/17 21:02 Enoxaparin Sodium (Lovenox Inj) 90 mg DAILY SQ 08/18/17 09:00 09/05/17 09:06 Anastrozole (Arimidex) 1 mg DAILY PO 08/29/17 11:00 09/05/17 09:05 Doxycycline Hyclate (Vibramycin) 100 mg BID PO 09/03/17 21:00 09/05/17 09:06 Objective Remarks GENERAL: Pleasant female, lying in bed in nad. SKIN: Warm and dry. HEAD: Normocephalic. EYES: No injection or drainage. NECK: Supple, trachea midline. CARDIOVASCULAR: Regular rate and rhythm RESPIRATORY: Breath sounds equal bilaterally. No accessory muscle use. GASTROINTESTINAL: Abdomen soft, non-tender, nondistended. EXTREMITIES: No cyanosis. LUE with 3mm wound with mild surrounding inflammation and no cellulitis. MUSCULOSKELETAL: Adequate muscle tone. NEUROLOGICAL: awake and alert. normal speech. Assessment/Plan Problem List: (1) HER2-positive carcinoma of right breast ICD Codes: C50.911 - Malignant neoplasm of unspecified site of right female breast Plan: 09/05: will plan for Herceptin/Perjeta this week plan on 12 weekly cycles of Taxol. She has had chemo 06/08/17, 06/15/17, 06/22/17, 06/29/17, 07/07/17, 07/14/17, 07/21/17 , 07/28/17, 08/04/17, 08/10/17 is week number 10, 08/18/17 is week 11, 08/25/17 is week 12. Herceptin/Perjeta is continued Q 3 weeks Goal Herceptin and Perjeta to continue for 52 weeks- which will be completed as outpatient. (2) Deep venous thrombosis of left upper extremity ICD Codes: I82.622 - Acute embolism and thrombosis of deep veins of left upper extremity Plan: --on therapeutic dose Lovenox 90mg SQ q 24 hours --plan to start on coumadin post-surgery (3) Skin infection ICD Codes: L08.9 - Local infection of the skin and subcutaneous tissue, unspecified Plan: --Microbiology from wound shows MRSA --ID following --Patient on doxycycline --cellulitis resolved. lesions remain Assessment 52y/o female with locally advanced HER2/shirley over expressing ER positive right breast cancer currently admitted for psychosis. 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 h/o Chemotherapy induced anemia. Plan 1. continue antibiotics. 2. proceed with Trastuzumab/Pertuzumab this Monday. 3. check CBC Idalia Disla Sep 05, 2017 11:36
--- NOTE | 2017-09-05 15:21 | PD.TTN ---
Patient Problems 1. Discharge planning 2. Medication compliance 3. Knowledge deficit 4. Lack of coping skills Progress Toward Goals Provider Present: Dr. Yen Bryant Provider Input: 09/05/2017; patient is pending medical treatment, and dc to the [facility] 09/01/2017; Patient is pending medical treatment and [facility] 08/28/2017: Patient is pending [facility], breast removal surgery 08/23/2017: Patient has one remaining Chemo treatment and within three weeks she will have surgery 08/21/2017; Patient is a state wait, still disorganized, requires stable appropriate dc placement for medical and mental health purpose. 08/16/2017;Patient is a state wait, has one more treatment and will be able to be transferred to [facility] 08/07/2017; patient is a state wait or will require a structure discharge environment 07/24/2017; per Dr. Enamorado, patient continues to display inappropriate behavior, requesting redirection with thoughts/mood. 07/19/17 remains in need for stabilization and is lacking insight and remains at high risk for decompensation 07/17/17 patient is receiving chemo and presenting different than last hospitalization which she was manic, now she is withdrawn and limited in talking and interacting 07/14/17 patient came from independent living at [facility] and appears not being able to return there - she can benefit from an FIFI placement Nurse(s) Present: ARIEL Flower Nurse(s) Input: 09/05/2017; patient is eating meals, taking her meds 09/01/2017; patient is positive for MRSA, taking her meds, and eating meals 08/28/2017: Patient is compliant with meals, and treatment 08/23/2017; patient is compliant with medication, meals requires some motivation and coaching 08/21/2017; patient is eating and taking her medication, needs prompting and encouragement 08/16/2017: patient is eating taking her medication, has no motivation and isolate most of the day. Patient is eating and very redirectable Psychiatric Counselors Present: [place] Fagan Psych Therapist Input: 09/05/2017; counselor will update patient's [facility] hospital status 09/01/2017; patient is encouraged with treatment, and groups 08/28/2017: Patient is encouraged with meals, treatment and groups 08/23/2017; counselor will call previous facilities to inquire if they would accept patient after surgery is complete 08/21/2017: counselor will encourage patient with activities 08/16/2017; patient is enouraged with meals, mood, and group participation 08/07/2017; patient is encouraged with meals, mood and medication 07/24/2017; patient is encouraged with mood, meals and medication compliance 07/19/17 still erratic, mood unstable, disorganized thoughts continue , needs at least FIFI if not more care 07/17/17 will work on SNF facilities and refer patient today, she remains uncooperative with this therapist 07/14/17 patient refused to talk to this counselor twice yesterday, pretending to sleep she is reported by nurses to remain in bed without interacting and irritable Group Spec/RT/OT/DONATO Present: Onel Devi OT Group Spec/RT/OT/DONATO Input: 09/05/2017: patient has MRSA and unable to attend group 09/01/2017; per to MRSA patient had been attending groups now she is unable 08/28/2017: Patient attends select groups, with little participation 08/23/2017: Patient has been attending groups; however she is easily overwhelmed; complete simple task 08/16/2017; patient will not participate with groups or activities 08/07/2017; patient is unable to participate with groups or activities 07/24/2017; patient continues to be unable to participate with groups and activities 07/19/17 cannot tolerate groups and non reality based thoughts 07/17/17 does not attend group and does not tolerate 07/14/17 patient does not attend groups and does not tolerate groups Documentation Scribe: Fernanda Dupree RIKY Sep 05, 2017 15:21
[2017-09-05 18:44] VITALS: BP 110/70; PULSE 94; RESP 18; TEMP 97.2; O2SAT 98
[2017-09-05] MEDS: ZOLPIDEM TARTRATE 5 MG TAB PO PRN (20:52)
[2017-09-05] MEDS: REMOVE OLD NICODERM (NICOTINE) PATCH T-DERMAL SCH (20:53)
[2017-09-06 06:00] VITALS: BP 114/65; PULSE 72; RESP 16; TEMP 98; O2SAT 96
[2017-09-06] MEDS: HALOPERIDOL 5 MG TAB PO SCH ×2 (09:00→20:46)
[2017-09-06] MEDS: SODIUM CHLORIDE 0.9% FLUSH 10 ML FLUSH IV FLUSH SCH ×2 (09:00→20:47)
[2017-09-06] MEDS: BACITRACIN TOP OINT 15 GM TUBE TOPICAL SCH ×2 (09:00→20:47)
[2017-09-06] MEDS: DOXYCYCLINE HYCLATE 100 MG CAP PO SCH ×2 (09:00→20:46)
[2017-09-06] MEDS: ANASTROZOLE 1 MG TAB PO SCH (09:00)
[2017-09-06] MEDS: ENOXAPARIN SODIUM 100 MG/ML SYRINGE SQ SCH (09:00)
[2017-09-06 09:02] LABS: AUTOMATED NEUTROPHIL # 2.7 TH/MM3 (1.8-7.7); BASOPHIL % 0.8 % (0.0-2.0); EOSINOPHIL # 0.2 TH/MM3 (0-0.4); EOSINOPHIL % 4.1 % (0.0-4.0); HEMOGLOBIN 12.9 GM/DL (11.6-15.3); LYMPH % 31.5 % (9.0-44.0); LYMPHOCYTE # 1.6 TH/MM3 (1.0-4.8); MEAN CELL VOLUME 92.2 FL (80.0-100.0); MEAN CORPUSCULAR HEMOGLOBIN 30.6 PG (27.0-34.0); MEAN CORPUSCULAR HGB CONC 33.2 % (32.0-36.0); MEAN PLATELET VOLUME 7.8 FL (7.0-11.0); MONO % 10.5 % (0.0-8.0); MONOCYTE # 0.5 TH/MM3 (0-0.9); NEUT % 53.1 % (16.0-70.0); PLATELET COUNT 322 TH/MM3 (150-450); RED BLOOD COUNT 4.23 MIL/MM3 (4.00-5.30); RED CELL DISTRIBUTION WIDTH 15.3 % (11.6-17.2); WHITE BLOOD COUNT 5.2 TH/MM3 (4.0-11.0)
[2017-09-06 09:41] LABS: BANDS 1 % (0-6); LYMPHOCYTES 22 % (9-44); MONOCYTES 12 % (0-8); MYELOCYTES 7 % (0-0); NEUTROPHIL # MANUAL DIFF 3.3 TH/MM3 (1.8-7.7); POLYS (SEG NEUTROPHILS) 56 % (16-70)
--- NOTE | 2017-09-06 12:20 | PD.ONC.PN ---
Subjective Subjective Remarks Afebrile overnight Pt resting in bed in no obvious distress Asking how often she will need treatment over the next year No other acute complaints Objective Data Date Time Temp Pulse Resp B/P (MAP) Pulse Ox O2 Delivery O2 Flow Rate FiO2 09/06/17 06:00 98.0 72 16 114/65 (81) 96 09/05/17 18:44 97.2 94 18 110/70 (83) 98 09/06/17 09/06/17 09/06/17 07:00 15:00 23:00 Intake Total 0 ml 480 ml Balance 0 ml 480 ml Result Diagram: 09/06/17 0844 Laboratory Results Laboratory Tests Test 09/06/17 08:44 White Blood Count 5.2 TH/MM3 Red Blood Count 4.23 MIL/MM3 Hemoglobin 12.9 GM/DL Hematocrit 39.0 % Mean Corpuscular Volume 92.2 FL Mean Corpuscular Hemoglobin 30.6 PG Mean Corpuscular Hemoglobin Concent 33.2 % Red Cell Distribution Width 15.3 % Platelet Count 322 TH/MM3 Mean Platelet Volume 7.8 FL Neutrophils (%) (Auto) 53.1 % Lymphocytes (%) (Auto) 31.5 % Monocytes (%) (Auto) 10.5 % Eosinophils (%) (Auto) 4.1 % Basophils (%) (Auto) 0.8 % Neutrophils # (Auto) 2.7 TH/MM3 Lymphocytes # (Auto) 1.6 TH/MM3 Monocytes # (Auto) 0.5 TH/MM3 Eosinophils # (Auto) 0.2 TH/MM3 Basophils # (Auto) 0.0 TH/MM3 CBC Comment AUTO DIFF Differential Total Cells Counted 100 Neutrophils % (Manual) 56 % Band Neutrophils % 1 % Lymphocytes % 22 % Monocytes % 12 % Eosinophils % 2 % Neutrophils # (Manual) 3.3 TH/MM3 Myelocytes 7 % Differential Comment FINAL DIFF MANUAL Platelet Estimate NORMAL Platelet Morphology Comment NORMAL Administered Medications Medications (Trade) Dose Ordered Sig/Renard Route PRN Reason Start Time Stop Time Status Last Admin Dose Admin Zolpidem Tartrate (Ambien) 5 mg HS PRN PO INSOMNIA 07/11/17 21:15 09/05/17 20:52 Lorazepam (Ativan) 1 mg Q6H PRN PO MODERATE TO SEVERE ANXIETY 07/11/17 21:15 09/02/17 18:04 Acetaminophen (Tylenol) 650 mg Q4H PRN PO Pain 1-5 or Temp >101F 07/11/17 21:15 07/17/17 20:42 Al Hydrox/Mg Hydrox/Simethicone (Mag-Al Plus Susp Liq) 30 ml Q6H PRN PO DYSPEPSIA 07/11/17 21:15 08/09/17 20:48 Nicotine (Habitrol 21 Mg Patch.24 Hr) 1 patch DAILY PRN T-DERMAL nicotine craving 07/11/17 21:15 09/03/17 08:09 Oxycodone/ Acetaminophen (Percocet 5-325 Mg) 1 tab Q6H PRN PO PAIN 6-10 07/11/17 21:15 08/28/17 20:11 Sodium Chloride (NS Flush) 2 ml BID IV FLUSH 07/15/17 21:00 09/05/17 20:53 Bacitracin (Baciguent Oint) 1 applic Q12HR TOPICAL 07/26/17 21:00 09/06/17 09:00 Heparin Sodium (Porcine) (Heparin Central Flush) 500 units UNSCH IV FLUSH 07/28/17 23:45 08/25/17 17:43 Miscellaneous Information 1 HS T-DERMAL 08/04/17 21:00 08/31/17 21:00 Haloperidol (Haldol) 10 mg DAILY PO 08/08/17 09:00 09/06/17 09:00 Haloperidol (Haldol) 15 mg HS PO 08/07/17 21:00 09/05/17 20:52 Enoxaparin Sodium (Lovenox Inj) 90 mg DAILY SQ 08/18/17 09:00 09/06/17 09:00 Anastrozole (Arimidex) 1 mg DAILY PO 08/29/17 11:00 09/06/17 09:00 Doxycycline Hyclate (Vibramycin) 100 mg BID PO 09/03/17 21:00 09/06/17 09:00 Objective Remarks GENERAL: Middle aged female, asleep in bed on approach. She awakens easily to verbal stimuli. SKIN: Erythema on forearms greatly improved. No oozing on today's visit. HEAD: Normocephalic. EYES: No injection or drainage. NECK: Supple, trachea midline. CARDIOVASCULAR: Regular rate and rhythm RESPIRATORY: Breath sounds equal bilaterally. No accessory muscle use. GASTROINTESTINAL: Abdomen soft, non-tender, nondistended. EXTREMITIES: No cyanosis, or edema. MUSCULOSKELETAL: Adequate muscle tone. NEUROLOGICAL: No obvious focal deficit. Assessment/Plan Problem List: (1) HER2-positive carcinoma of right breast ICD Codes: C50.911 - Malignant neoplasm of unspecified site of right female breast Plan: 09/06: will plan for Herceptin/Perjeta this week plan on 12 weekly cycles of Taxol. She has had chemo 06/08/17, 06/15/17, 06/22/17, 06/29/17, 07/07/17, 07/14/17, 07/21/17 , 07/28/17, 08/04/17, 08/10/17 is week number 10, 08/18/17 is week 11, 08/25/17 is week 12. Herceptin/Perjeta is continued Q 3 weeks Goal Herceptin and Perjeta to continue for 52 weeks- which will be completed as outpatient. (2) Deep venous thrombosis of left upper extremity ICD Codes: I82.622 - Acute embolism and thrombosis of deep veins of left upper extremity Plan: --on therapeutic dose Lovenox 90mg SQ q 24 hours --plan to start on coumadin post-surgery (3) Skin infection ICD Codes: L08.9 - Local infection of the skin and subcutaneous tissue, unspecified Plan: --Microbiology from wound shows MRSA --ID following --Patient on doxycycline --cellulitis resolved. lesions remain Assessment 52y/o female with locally advanced HER2/shirley over expressing ER positive right breast cancer currently admitted for psychosis. 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 h/o Chemotherapy induced anemia. Plan 1. Continue doxycycline 2. Trastuzumab+Pertuzumab on Monday of this week 3. Surgery next week. Cheryl Jimenez Sep 06, 2017 12:20
--- NOTE | 2017-09-06 15:05 | HHI.PYPN ---
Subjective Chief Complaint: Psychosis Remarks Follow-up conducted in patient's room. Reviewed electronic medical record and discussed patient's case with staff. Patient looking for her remote, alert and oriented although somewhat distracted. Her speech is clear, organized, and linear. Staff advise that patient has one more treatment and then will be having surgery "next week". The exact date has not yet been set. Mental Status Examination Appearance: Appropriate Consciousness: Alert Orientation: Person, Place (at least) Motor Activity: Other (no motoric abnormalities noted) Speech: Unremarkable Language: Adequate Fund of Knowledge: Inadequate Attention and Concentration: Adequate Memory: Impaired Mood: Appropriate Affect: Blunt Thought Process & Associations: Other (linear but concrete) Thought Content: Appropriate Hallucination Type: None Delusion Type: None Suicidal Ideation: No Suicidal Plan: No Suicidal Intention: No Homicidal Ideation: No Homicidal Plan: No Homicidal Intention: No Insight: Poor Judgment: Poor Results Labs Test 09/06/17 08:44 White Blood Count 5.2 TH/MM3 Red Blood Count 4.23 MIL/MM3 Hemoglobin 12.9 GM/DL Hematocrit 39.0 % Mean Corpuscular Volume 92.2 FL Mean Corpuscular Hemoglobin 30.6 PG Mean Corpuscular Hemoglobin Concent 33.2 % Red Cell Distribution Width 15.3 % Platelet Count 322 TH/MM3 Mean Platelet Volume 7.8 FL Neutrophils (%) (Auto) 53.1 % Lymphocytes (%) (Auto) 31.5 % Monocytes (%) (Auto) 10.5 % Eosinophils (%) (Auto) 4.1 % Basophils (%) (Auto) 0.8 % Neutrophils # (Auto) 2.7 TH/MM3 Lymphocytes # (Auto) 1.6 TH/MM3 Monocytes # (Auto) 0.5 TH/MM3 Eosinophils # (Auto) 0.2 TH/MM3 Basophils # (Auto) 0.0 TH/MM3 CBC Comment AUTO DIFF Differential Total Cells Counted 100 Neutrophils % (Manual) 56 % Band Neutrophils % 1 % Lymphocytes % 22 % Monocytes % 12 % Eosinophils % 2 % Neutrophils # (Manual) 3.3 TH/MM3 Myelocytes 7 % Differential Comment FINAL DIFF MANUAL Platelet Estimate NORMAL Platelet Morphology Comment NORMAL Date/Time Source Procedure Growth Status 08/29/17 20:15 Blood Line Aerobic Blood Culture - Final NO GROWTH IN 5 DAYS Complete 08/29/17 20:15 Blood Line Anaerobic Blood Culture - Final NO GROWTH IN 5 DAYS Complete 08/30/17 14:53 Wound Scalp Gram Stain - Final Complete 08/30/17 14:53 Wound Culture - Final S. Aureus Mrsa Complete Vitals/IOs Vital Signs Date Time Temp Pulse Resp B/P (MAP) Pulse Ox O2 Delivery O2 Flow Rate FiO2 09/06/17 06:00 98.0 72 16 114/65 (81) 96 Intake and Output 09/06/17 09/06/17 09/07/17 08:00 16:00 00:00 Intake Total 480 ml 240 ml Balance 480 ml 240 ml Assessment & Plan Problem List: (1) Psychosis not due to substance or known physiological condition ICD Codes: F29 - Unspecified psychosis not due to a substance or known physiological condition Assessment & Plan Estimated LOS: Patient awaiting further cancer treatment. Justification for Cont. Inpt. Moving this patient to a lower level of care would result in a decompensation. Shanika Denney Sep 06, 2017 15:05
[2017-09-06 18:00] VITALS: BP 120/60; PULSE 84; RESP 18; TEMP 97.3; O2SAT 97
[2017-09-06] MEDS: REMOVE OLD NICODERM (NICOTINE) PATCH T-DERMAL SCH (20:47)
[2017-09-07 06:01] VITALS: BP 113/54; PULSE 104; RESP 18; TEMP 98.3; O2SAT 98
[2017-09-07] MEDS: SODIUM CHLORIDE 0.9% FLUSH 10 ML FLUSH IV FLUSH SCH ×2 (09:00→20:16)
[2017-09-07] MEDS: BACITRACIN TOP OINT 15 GM TUBE TOPICAL SCH ×2 (09:00→23:53)
[2017-09-07] MEDS: DOXYCYCLINE HYCLATE 100 MG CAP PO SCH ×2 (09:18→23:28)
[2017-09-07] MEDS: ANASTROZOLE 1 MG TAB PO SCH (09:18)
[2017-09-07] MEDS: HALOPERIDOL 5 MG TAB PO SCH ×2 (09:18→23:28)
[2017-09-07] MEDS: ENOXAPARIN SODIUM 100 MG/ML SYRINGE SQ SCH (09:18)
--- NOTE | 2017-09-07 13:04 | PD.ONC.PN ---
Subjective Subjective Remarks Afebrile overnight. patient resting in bed in nad. No complaints. Objective Data Date Time Temp Pulse Resp B/P (MAP) Pulse Ox O2 Delivery O2 Flow Rate FiO2 09/07/17 06:01 98.3 104 18 113/54 (73) 98 09/06/17 18:00 97.3 84 18 120/60 (80) 97 09/07/17 09/07/17 09/07/17 07:00 15:00 23:00 Intake Total 0 ml 1080 ml Balance 0 ml 1080 ml Result Diagram: 09/06/17 0844 Administered Medications Medications (Trade) Dose Ordered Sig/Renard Route PRN Reason Start Time Stop Time Status Last Admin Dose Admin Zolpidem Tartrate (Ambien) 5 mg HS PRN PO INSOMNIA 07/11/17 21:15 09/05/17 20:52 Lorazepam (Ativan) 1 mg Q6H PRN PO MODERATE TO SEVERE ANXIETY 07/11/17 21:15 09/02/17 18:04 Acetaminophen (Tylenol) 650 mg Q4H PRN PO Pain 1-5 or Temp >101F 07/11/17 21:15 07/17/17 20:42 Al Hydrox/Mg Hydrox/Simethicone (Mag-Al Plus Susp Liq) 30 ml Q6H PRN PO DYSPEPSIA 07/11/17 21:15 08/09/17 20:48 Nicotine (Habitrol 21 Mg Patch.24 Hr) 1 patch DAILY PRN T-DERMAL nicotine craving 07/11/17 21:15 09/03/17 08:09 Oxycodone/ Acetaminophen (Percocet 5-325 Mg) 1 tab Q6H PRN PO PAIN 6-10 07/11/17 21:15 08/28/17 20:11 Sodium Chloride (NS Flush) 2 ml BID IV FLUSH 07/15/17 21:00 09/01/17 09:00 Bacitracin (Baciguent Oint) 1 applic Q12HR TOPICAL 07/26/17 21:00 09/06/17 20:47 Heparin Sodium (Porcine) (Heparin Central Flush) 500 units UNSCH IV FLUSH 07/28/17 23:45 08/25/17 17:43 Miscellaneous Information 1 HS T-DERMAL 08/04/17 21:00 08/31/17 21:00 Haloperidol (Haldol) 10 mg DAILY PO 08/08/17 09:00 09/07/17 09:18 Haloperidol (Haldol) 15 mg HS PO 08/07/17 21:00 09/06/17 20:46 Enoxaparin Sodium (Lovenox Inj) 90 mg DAILY SQ 08/18/17 09:00 09/07/17 09:18 Anastrozole (Arimidex) 1 mg DAILY PO 08/29/17 11:00 09/07/17 09:18 Doxycycline Hyclate (Vibramycin) 100 mg BID PO 09/03/17 21:00 09/07/17 09:18 Objective Remarks GENERAL: Middle aged female, lying in bed resting. SKIN: Warm and dry. HEAD: Normocephalic. EYES: No injection or drainage. NECK: Supple, trachea midline. CARDIOVASCULAR: Regular rate and rhythm RESPIRATORY: Breath sounds equal bilaterally. No accessory muscle use. GASTROINTESTINAL: Abdomen soft, non-tender, nondistended. EXTREMITIES: No cyanosis, or edema. NEUROLOGICAL: Assessment/Plan Problem List: (1) HER2-positive carcinoma of right breast ICD Codes: C50.911 - Malignant neoplasm of unspecified site of right female breast Plan: 09/07: give Herceptin/Perjeta today. plan on 12 weekly cycles of Taxol. She has had chemo 06/08/17, 06/15/17, 06/22/17, 06/29/17, 07/07/17, 07/14/17, 07/21/17 , 07/28/17, 08/04/17, 08/10/17 is week number 10, 08/18/17 is week 11, 08/25/17 is week 12. Herceptin/Perjeta is continued Q 3 weeks Goal Herceptin and Perjeta to continue for 52 weeks- which will be completed as outpatient. (2) Deep venous thrombosis of left upper extremity ICD Codes: I82.622 - Acute embolism and thrombosis of deep veins of left upper extremity Plan: --on therapeutic dose Lovenox 90mg SQ q 24 hours --plan to start on coumadin post-surgery (3) Skin infection ICD Codes: L08.9 - Local infection of the skin and subcutaneous tissue, unspecified Plan: --Microbiology from wound shows MRSA --ID following --Patient on doxycycline --cellulitis resolved. lesions remain Assessment 52y/o female with locally advanced HER2/shirley over expressing ER positive right breast cancer currently admitted for psychosis. 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 h/o Chemotherapy induced anemia. Patient's [place] rep is: Jessi Emery, [phone] (this is the person that needs to be called for consent) Plan 1. proceed with Herceptin/Perjeta today 2. will obtain verbal consent from patient's newly appointed guardian prior to treatment. 3. monitor labs Attending Statement Agree with above. Coordinate her antibody therapy today. Idalia Disla Sep 07, 2017 13:04 Alexa Villareal MD Sep 07, 2017 22:56
[2017-09-07] MEDS: NICOTINE 21 MG/24 HR PATCH T-DERMAL PRN (13:28)
--- NOTE | 2017-09-07 14:51 | HHI.PYPN ---
Subjective Chief Complaint: Psychosis Remarks Reviewed electronic medical record and discussed case with staff. Patient compliant with all treatments. Follow-up conducted in patient's room. She reports feeling "fine". Her mood is good and her affect is blunt. She is awaiting transport to have a medical treatment in preparation for her impending surgery. Patient requested pudding, and was seen ambulating in her room without difficulty. She has no complaints today. Mental Status Examination Appearance: Appropriate Consciousness: Alert Orientation: Person, Place (at least) Motor Activity: Other (no motoric abnormalities noted) Speech: Unremarkable Language: Adequate Fund of Knowledge: Inadequate Attention and Concentration: Adequate Memory: Impaired Mood: Appropriate Affect: Blunt Thought Process & Associations: Other (linear but concrete) Thought Content: Appropriate Hallucination Type: None Delusion Type: None Suicidal Ideation: No Suicidal Plan: No Suicidal Intention: No Homicidal Ideation: No Homicidal Plan: No Homicidal Intention: No Insight: Poor Judgment: Poor Results Labs Date/Time Source Procedure Growth Status 08/29/17 20:15 Blood Line Aerobic Blood Culture - Final NO GROWTH IN 5 DAYS Complete 08/29/17 20:15 Blood Line Anaerobic Blood Culture - Final NO GROWTH IN 5 DAYS Complete 08/30/17 14:53 Wound Scalp Gram Stain - Final Complete 08/30/17 14:53 Wound Culture - Final S. Aureus Mrsa Complete Vitals/IOs Vital Signs Date Time Temp Pulse Resp B/P (MAP) Pulse Ox O2 Delivery O2 Flow Rate FiO2 09/07/17 06:01 98.3 104 18 113/54 (73) 98 Intake and Output 09/07/17 09/07/17 09/08/17 08:00 16:00 00:00 Intake Total 0 ml 1080 ml Balance 0 ml 1080 ml Assessment & Plan Problem List: (1) Psychosis not due to substance or known physiological condition ICD Codes: F29 - Unspecified psychosis not due to a substance or known physiological condition Assessment & Plan Estimated LOS: Awaiting further cancer treatment. Placement that will provide a safe discharge is being sought. Justification for Cont. Inpt. Moving this patient to a lower level of care would result in a lower level of care. Shanika Denney Sep 07, 2017 14:51
[2017-09-07 16:19] LABS: AUTOMATED NEUTROPHIL # 2.9 TH/MM3 (1.8-7.7); BASOPHIL % 0.6 % (0.0-2.0); EOSINOPHIL # 0.2 TH/MM3 (0-0.4); EOSINOPHIL % 3.7 % (0.0-4.0); HEMOGLOBIN 12.8 GM/DL (11.6-15.3); LYMPH % 38.6 % (9.0-44.0); LYMPHOCYTE # 2.3 TH/MM3 (1.0-4.8); MEAN CELL VOLUME 92.5 FL (80.0-100.0); MEAN CORPUSCULAR HEMOGLOBIN 31.2 PG (27.0-34.0); MEAN CORPUSCULAR HGB CONC 33.7 % (32.0-36.0); MEAN PLATELET VOLUME 7.7 FL (7.0-11.0); MONO % 8.7 % (0.0-8.0); MONOCYTE # 0.5 TH/MM3 (0-0.9); NEUT % 48.4 % (16.0-70.0); PLATELET COUNT 329 TH/MM3 (150-450); RED BLOOD COUNT 4.11 MIL/MM3 (4.00-5.30); RED CELL DISTRIBUTION WIDTH 15.4 % (11.6-17.2); WHITE BLOOD COUNT 5.9 TH/MM3 (4.0-11.0)
[2017-09-07 16:41] LABS: ALBUMIN 3.2 GM/DL (3.4-5.0); ALT (GPT) 29 U/L (10-53); AST (GOT) 11 U/L (15-37); BICARBONATE 32.6 MEQ/L (21.0-32.0); BLOOD UREA NITROGEN 12 MG/DL (7-18); CALCIUM 8.9 MG/DL (8.5-10.1); CHLORIDE 105 MEQ/L (98-107); CREATININE 0.72 MG/DL (0.50-1.00); GLOMERULAR FILTRATION RATE 85 ML/MIN (>89); GLUCOSE,RANDOM 98 MG/DL (74-106); SODIUM (NA) 143 MEQ/L (136-145)
[2017-09-07 16:43] LABS: ALKALINE PHOSPHATASE 68 U/L (45-117); TOTAL BILIRUBIN ADULT 0.6 MG/DL (0.2-1.0); TOTAL PROTEIN 6.5 GM/DL (6.4-8.2)
[2017-09-07] MEDS ORDERED: ACETAMINOPHEN 325 MG TAB PO ONE (17:30)
[2017-09-07] MEDS ORDERED: diphenhydrAMINE HCL 50 MG CAP PO ONE (17:30)
[2017-09-07 18:00] VITALS: BP 138/97; PULSE 86; RESP 18; TEMP 97.8; O2SAT 98
[2017-09-07] MEDS ORDERED: WATER IV ONE ×2 (18:00)
[2017-09-07] MEDS ORDERED: PERTUZUMAB IV ONE ×2 (18:00)
[2017-09-07] MEDS ORDERED: DEXTROSE 5% IV ONE ×2 (18:00)
[2017-09-07] MEDS: LORazepam 1 MG TAB PO PRN (18:15)
[2017-09-07] MEDS ORDERED: SODIUM CHLOR 0.9% IV ONE (20:00)
[2017-09-07] MEDS ORDERED: TRASTUZUMAB IV ONE (20:00)
[2017-09-07 20:23] VITALS: BP 141/89; PULSE 70; RESP 16; TEMP 97.8; O2SAT 98
[2017-09-07] MEDS: REMOVE OLD NICODERM (NICOTINE) PATCH T-DERMAL SCH (21:00)
[2017-09-07 22:21] VITALS: BP 138/87; PULSE 72; RESP 18; TEMP 97.5; O2SAT 95
[2017-09-08 06:00] VITALS: BP 129/89; PULSE 85; RESP 17; TEMP 97.7; O2SAT 98
[2017-09-08] MEDS: SODIUM CHLORIDE 0.9% FLUSH 10 ML FLUSH IV FLUSH SCH ×2 (09:00→21:00)
--- NOTE | 2017-09-08 09:48 | PD.ONC.PN ---
Subjective Subjective Remarks Lying in bed in AM, isolation due to MRSA. No complaints. Objective Data Date Time Temp Pulse Resp B/P (MAP) Pulse Ox O2 Delivery O2 Flow Rate FiO2 09/08/17 06:00 97.7 85 17 129/89 (102) 98 09/07/17 22:21 97.5 72 18 138/87 (104) 95 09/07/17 20:23 97.8 70 16 141/89 (106) 98 09/07/17 18:00 97.8 86 18 138/97 (111) 98 09/08/17 09/08/17 09/08/17 07:00 15:00 23:00 Intake Total 120 ml 720 ml Balance 120 ml 720 ml Result Diagram: 09/07/17 1602 09/07/17 1602 Laboratory Results Laboratory Tests Test 09/07/17 16:02 White Blood Count 5.9 TH/MM3 Red Blood Count 4.11 MIL/MM3 Hemoglobin 12.8 GM/DL Hematocrit 38.0 % Mean Corpuscular Volume 92.5 FL Mean Corpuscular Hemoglobin 31.2 PG Mean Corpuscular Hemoglobin Concent 33.7 % Red Cell Distribution Width 15.4 % Platelet Count 329 TH/MM3 Mean Platelet Volume 7.7 FL Neutrophils (%) (Auto) 48.4 % Lymphocytes (%) (Auto) 38.6 % Monocytes (%) (Auto) 8.7 % Eosinophils (%) (Auto) 3.7 % Basophils (%) (Auto) 0.6 % Neutrophils # (Auto) 2.9 TH/MM3 Lymphocytes # (Auto) 2.3 TH/MM3 Monocytes # (Auto) 0.5 TH/MM3 Eosinophils # (Auto) 0.2 TH/MM3 Basophils # (Auto) 0.0 TH/MM3 CBC Comment DIFF FINAL Differential Comment Blood Urea Nitrogen 12 MG/DL Creatinine 0.72 MG/DL Random Glucose 98 MG/DL Total Protein 6.5 GM/DL Albumin 3.2 GM/DL Calcium Level 8.9 MG/DL Alkaline Phosphatase 68 U/L Aspartate Amino Transf (AST/SGOT) 11 U/L Alanine Aminotransferase (ALT/SGPT) 29 U/L Total Bilirubin 0.6 MG/DL Sodium Level 143 MEQ/L Potassium Level 3.8 MEQ/L Chloride Level 105 MEQ/L Carbon Dioxide Level 32.6 MEQ/L Anion Gap 5 MEQ/L Estimat Glomerular Filtration Rate 85 ML/MIN Administered Medications Medications (Trade) Dose Ordered Sig/Renard Route PRN Reason Start Time Stop Time Status Last Admin Dose Admin Zolpidem Tartrate (Ambien) 5 mg HS PRN PO INSOMNIA 07/11/17 21:15 09/05/17 20:52 Lorazepam (Ativan) 1 mg Q6H PRN PO MODERATE TO SEVERE ANXIETY 07/11/17 21:15 09/07/17 18:15 Acetaminophen (Tylenol) 650 mg Q4H PRN PO Pain 1-5 or Temp >101F 07/11/17 21:15 07/17/17 20:42 Al Hydrox/Mg Hydrox/Simethicone (Mag-Al Plus Susp Liq) 30 ml Q6H PRN PO DYSPEPSIA 07/11/17 21:15 08/09/17 20:48 Nicotine (Habitrol 21 Mg Patch.24 Hr) 1 patch DAILY PRN T-DERMAL nicotine craving 07/11/17 21:15 09/07/17 13:28 Oxycodone/ Acetaminophen (Percocet 5-325 Mg) 1 tab Q6H PRN PO PAIN 6-10 07/11/17 21:15 08/28/17 20:11 Sodium Chloride (NS Flush) 2 ml BID IV FLUSH 07/15/17 21:00 09/07/17 20:16 Bacitracin (Baciguent Oint) 1 applic Q12HR TOPICAL 07/26/17 21:00 09/07/17 23:53 Heparin Sodium (Porcine) (Heparin Central Flush) 500 units UNSCH IV FLUSH 07/28/17 23:45 09/07/17 22:15 Miscellaneous Information 1 HS T-DERMAL 08/04/17 21:00 08/31/17 21:00 Haloperidol (Haldol) 10 mg DAILY PO 08/08/17 09:00 09/07/17 09:18 Haloperidol (Haldol) 15 mg HS PO 08/07/17 21:00 09/07/17 23:28 Enoxaparin Sodium (Lovenox Inj) 90 mg DAILY SQ 08/18/17 09:00 09/07/17 09:18 Anastrozole (Arimidex) 1 mg DAILY PO 08/29/17 11:00 09/07/17 09:18 Doxycycline Hyclate (Vibramycin) 100 mg BID PO 09/03/17 21:00 09/07/17 23:28 Objective Remarks GENERAL: Middle aged female, lying in bed resting. SKIN: Warm and dry. L arm cellulitis/nodule smaller, less red, improving. Scalp lesion resolved to small erythematous patch. BREAST: R axillary adenopathy resolved. R periareolar mass softer, still has a central firm fibrotic area. No discharge. HEAD: Normocephalic. EYES: No injection or drainage. NECK: Supple, trachea midline. CARDIOVASCULAR: Regular rate and rhythm RESPIRATORY: Breath sounds equal bilaterally. No accessory muscle use. GASTROINTESTINAL: Abdomen soft, non-tender, nondistended. EXTREMITIES: No cyanosis, or edema. L arm swelling mild. Assessment/Plan Problem List: (1) HER2-positive carcinoma of right breast ICD Codes: C50.911 - Malignant neoplasm of unspecified site of right female breast Plan: 09/08/17. Tolerated antibody therapy. Clinically responding. Ready for definitive surgery. Her 2 antibody therapy generally continue for 52 weeks. Tolerating AI well, continue anti estrogen therapy. Surgery per Dr. Sewell who scheduled it next week. No contraindication from oncology standpoint. No cytopenias. 09/07: give Herceptin/Perjeta today. plan on 12 weekly cycles of Taxol. She has had chemo 06/08/17, 06/15/17, 06/22/17, 06/29/17, 07/07/17, 07/14/17, 07/21/17 , 07/28/17, 08/04/17, 08/10/17 is week number 10, 08/18/17 is week 11, 08/25/17 is week 12. Herceptin/Perjeta is continued Q 3 weeks Goal Herceptin and Perjeta to continue for 52 weeks- which will be completed as outpatient. (2) Deep venous thrombosis of left upper extremity ICD Codes: I82.622 - Acute embolism and thrombosis of deep veins of left upper extremity Plan: 09/08/17. Round down to nearest vial size. Anticipate DC of port and placement on other side to relieve the catheter related clot. Plan to switch to Coumadin after surgery. Hold Lovenox 24 hours prior to scheduled surgery. --on therapeutic dose Lovenox 90mg SQ q 24 hours --plan to start on coumadin post-surgery (3) Skin infection ICD Codes: L08.9 - Local infection of the skin and subcutaneous tissue, unspecified Plan: 09/08/17. Skin infection resolving. Scalp lesion resolved. L arm lesion improving. No erythema. Continue abx. --Microbiology from wound shows MRSA --ID following --Patient on doxycycline --cellulitis resolved. lesions remain Assessment 52y/o female with locally advanced HER2/shirley over expressing ER positive right breast cancer currently admitted for psychosis. 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 h/o Chemotherapy induced anemia. Patient's [place] rep is: Jessi Emery, [phone] (this is the person that needs to be called for consent) Plan 1. Plan for surgery with Dr. Sewell next week. 2. Lovenox 80mg nearest vial size. 3. Continue Abx- resolution skin infection. Alexa Villareal MD Sep 08, 2017 09:48
[2017-09-08] MEDS: ANASTROZOLE 1 MG TAB PO SCH (09:55)
[2017-09-08] MEDS: DOXYCYCLINE HYCLATE 100 MG CAP PO SCH ×2 (09:55→21:17)
[2017-09-08] MEDS: BACITRACIN TOP OINT 15 GM TUBE TOPICAL SCH ×2 (09:55→21:17)
[2017-09-08] MEDS: ACETAMINOPHEN 325 MG TAB PO PRN (09:55)
[2017-09-08] MEDS: HALOPERIDOL 5 MG TAB PO SCH ×2 (09:55→21:17)
--- NOTE | 2017-09-08 11:33 | HHI.PYPN ---
Subjective Chief Complaint: Psychosis Remarks Reviewed electronic medical record and discussed case with staff. Follow-up was performed in patient's room. Patient lying on bed awake, alert, and oriented. Her speech is clear, logical and organized. At the time of exam she did not seem too internally stimulated. She reports that she tolerated her treatment from yesterday well. She reports that she slept well and she has a good appetite. Her mood is good and her affect is euthymic. Mental Status Examination Appearance: Appropriate Consciousness: Alert Orientation: Person, Place (at least) Motor Activity: Other (no motoric abnormalities noted) Speech: Unremarkable Language: Adequate Fund of Knowledge: Inadequate Attention and Concentration: Adequate Memory: Impaired Mood: Appropriate Affect: Blunt Thought Process & Associations: Other (linear but concrete) Thought Content: Appropriate Hallucination Type: None Delusion Type: None Suicidal Ideation: No Suicidal Plan: No Suicidal Intention: No Homicidal Ideation: No Homicidal Plan: No Homicidal Intention: No Insight: Poor Judgment: Poor Results Labs Test 09/07/17 16:02 White Blood Count 5.9 TH/MM3 Red Blood Count 4.11 MIL/MM3 Hemoglobin 12.8 GM/DL Hematocrit 38.0 % Mean Corpuscular Volume 92.5 FL Mean Corpuscular Hemoglobin 31.2 PG Mean Corpuscular Hemoglobin Concent 33.7 % Red Cell Distribution Width 15.4 % Platelet Count 329 TH/MM3 Mean Platelet Volume 7.7 FL Neutrophils (%) (Auto) 48.4 % Lymphocytes (%) (Auto) 38.6 % Monocytes (%) (Auto) 8.7 % Eosinophils (%) (Auto) 3.7 % Basophils (%) (Auto) 0.6 % Neutrophils # (Auto) 2.9 TH/MM3 Lymphocytes # (Auto) 2.3 TH/MM3 Monocytes # (Auto) 0.5 TH/MM3 Eosinophils # (Auto) 0.2 TH/MM3 Basophils # (Auto) 0.0 TH/MM3 CBC Comment DIFF FINAL Differential Comment Blood Urea Nitrogen 12 MG/DL Creatinine 0.72 MG/DL Random Glucose 98 MG/DL Total Protein 6.5 GM/DL Albumin 3.2 GM/DL Calcium Level 8.9 MG/DL Alkaline Phosphatase 68 U/L Aspartate Amino Transf (AST/SGOT) 11 U/L Alanine Aminotransferase (ALT/SGPT) 29 U/L Total Bilirubin 0.6 MG/DL Sodium Level 143 MEQ/L Potassium Level 3.8 MEQ/L Chloride Level 105 MEQ/L Carbon Dioxide Level 32.6 MEQ/L Anion Gap 5 MEQ/L Estimat Glomerular Filtration Rate 85 ML/MIN Date/Time Source Procedure Growth Status 08/29/17 20:15 Blood Line Aerobic Blood Culture - Final NO GROWTH IN 5 DAYS Complete 08/29/17 20:15 Blood Line Anaerobic Blood Culture - Final NO GROWTH IN 5 DAYS Complete 08/30/17 14:53 Wound Scalp Gram Stain - Final Complete 08/30/17 14:53 Wound Culture - Final S. Aureus Mrsa Complete Vitals/IOs Vital Signs Date Time Temp Pulse Resp B/P (MAP) Pulse Ox O2 Delivery O2 Flow Rate FiO2 09/08/17 06:00 97.7 85 17 129/89 (102) 98 Intake and Output 09/08/17 09/08/17 09/09/17 08:00 16:00 00:00 Intake Total 840 ml Balance 840 ml Assessment & Plan Problem List: (1) Psychosis not due to substance or known physiological condition ICD Codes: F29 - Unspecified psychosis not due to a substance or known physiological condition Assessment & Plan Estimated LOS: Patient will be placed state facility pending completion of her cancer treatment. Justification for Cont. Inpt. Moving this patient to a lower level of care would result in a decompensation. She will be appropriately placed pending successful treatment of her cancer. Shanika Denney Sep 08, 2017 11:33
[2017-09-08 18:22] VITALS: BP 130/86; PULSE 113; RESP 16; TEMP 98.2; O2SAT 98
[2017-09-08] MEDS: REMOVE OLD NICODERM (NICOTINE) PATCH T-DERMAL SCH (20:47)
[2017-09-09 06:00] VITALS: BP 113/70; PULSE 64; RESP 16; TEMP 97.5; O2SAT 96
[2017-09-09] MEDS: HALOPERIDOL 5 MG TAB PO SCH ×2 (08:48→21:08)
[2017-09-09] MEDS: ANASTROZOLE 1 MG TAB PO SCH (08:48)
[2017-09-09] MEDS: DOXYCYCLINE HYCLATE 100 MG CAP PO SCH ×2 (08:48→21:08)
[2017-09-09] MEDS: ENOXAPARIN SODIUM 80 MG/0.8 ML SYRINGE SQ SCH (08:48)
[2017-09-09] MEDS: BACITRACIN TOP OINT 15 GM TUBE TOPICAL SCH ×2 (09:00→21:09)
[2017-09-09] MEDS: SODIUM CHLORIDE 0.9% FLUSH 10 ML FLUSH IV FLUSH SCH ×2 (09:00→21:00)
--- NOTE | 2017-09-09 15:04 | HHI.PYPN ---
Subjective Chief Complaint: Psychosis Remarks Patient was seen and case discussed with nursing. Patient is pleasant and cooperative with interview. She denies hallucinations but still be internally stimulated. Per nursing she is impulsive and somewhat intrusive throughout the day. She is looking forward to her surgery. She denies auditory visual hallucinations. Tolerating medications well Mental Status Examination Appearance: Appropriate Consciousness: Alert Orientation: Person, Place (at least) Motor Activity: Other (no motoric abnormalities noted) Speech: Unremarkable Language: Adequate Fund of Knowledge: Inadequate Attention and Concentration: Adequate Memory: Impaired Mood: Appropriate Affect: Blunt Thought Process & Associations: Other (linear but concrete) Thought Content: Appropriate Hallucination Type: None Delusion Type: None Suicidal Ideation: No Suicidal Plan: No Suicidal Intention: No Homicidal Ideation: No Homicidal Plan: No Homicidal Intention: No Insight: Poor Judgment: Poor Results Labs Date/Time Source Procedure Growth Status 08/29/17 20:15 Blood Line Aerobic Blood Culture - Final NO GROWTH IN 5 DAYS Complete 08/29/17 20:15 Blood Line Anaerobic Blood Culture - Final NO GROWTH IN 5 DAYS Complete 08/30/17 14:53 Wound Scalp Gram Stain - Final Complete 08/30/17 14:53 Wound Culture - Final S. Aureus Mrsa Complete Vitals/IOs Vital Signs Date Time Temp Pulse Resp B/P (MAP) Pulse Ox O2 Delivery O2 Flow Rate FiO2 09/09/17 06:00 97.5 64 16 113/70 (84) 96 Intake and Output 09/09/17 09/09/17 09/10/17 08:00 16:00 00:00 Intake Total 0 ml 720 ml Balance 0 ml 720 ml Assessment & Plan Problem List: (1) Psychosis not due to substance or known physiological condition ICD Codes: F29 - Unspecified psychosis not due to a substance or known physiological condition Assessment & Plan Continue current treatment plan Justification for Cont. Inpt. Patient would decompensate in a less restrictive setting Carmelo Velazquez DO Sep 09, 2017 15:04
[2017-09-09 18:15] VITALS: BP 115/68; PULSE 81; RESP 14; TEMP 97.6; O2SAT 98
[2017-09-09] MEDS: REMOVE OLD NICODERM (NICOTINE) PATCH T-DERMAL SCH (21:00)
[2017-09-10 06:35] VITALS: BP 122/75; PULSE 70; RESP 16; TEMP 97.6; O2SAT 97
[2017-09-10] MEDS: DOXYCYCLINE HYCLATE 100 MG CAP PO SCH ×2 (07:57→21:09)
[2017-09-10] MEDS: SODIUM CHLORIDE 0.9% FLUSH 10 ML FLUSH IV FLUSH SCH ×2 (07:57→21:00)
[2017-09-10] MEDS: ANASTROZOLE 1 MG TAB PO SCH (07:57)
[2017-09-10] MEDS: HALOPERIDOL 5 MG TAB PO SCH ×2 (07:57→21:10)
[2017-09-10] MEDS: ENOXAPARIN SODIUM 80 MG/0.8 ML SYRINGE SQ SCH (09:00)
[2017-09-10] MEDS: BACITRACIN TOP OINT 15 GM TUBE TOPICAL SCH ×2 (09:00→21:10)
--- NOTE | 2017-09-10 14:18 | HHI.PYPN ---
Subjective Chief Complaint: Psychosis Remarks Patient was seen and case discussed with nursing. She is pleasant and cooperative with exam. Continues to be perseverative on her disability check. Behaving well on the unit. No psychotic symptoms elicited though she could be responding to internal stimuli. Mental Status Examination Appearance: Appropriate Consciousness: Alert Orientation: Person, Place (at least) Motor Activity: Other (no motoric abnormalities noted) Speech: Unremarkable Language: Adequate Fund of Knowledge: Inadequate Attention and Concentration: Adequate Memory: Impaired Mood: Appropriate Affect: Blunt Thought Process & Associations: Disorganized Thought Content: Appropriate Hallucination Type: None Delusion Type: None Suicidal Ideation: No Suicidal Plan: No Suicidal Intention: No Homicidal Ideation: No Homicidal Plan: No Homicidal Intention: No Insight: Poor Judgment: Poor Results Labs Date/Time Source Procedure Growth Status 08/29/17 20:15 Blood Line Aerobic Blood Culture - Final NO GROWTH IN 5 DAYS Complete 08/29/17 20:15 Blood Line Anaerobic Blood Culture - Final NO GROWTH IN 5 DAYS Complete 08/30/17 14:53 Wound Scalp Gram Stain - Final Complete 08/30/17 14:53 Wound Culture - Final S. Aureus Mrsa Complete Vitals/IOs Vital Signs Date Time Temp Pulse Resp B/P (MAP) Pulse Ox O2 Delivery O2 Flow Rate FiO2 09/10/17 06:35 97.6 70 16 122/75 (91) 97 Intake and Output 09/10/17 09/10/17 09/11/17 08:00 16:00 00:00 Intake Total 0 ml 600 ml Balance 0 ml 600 ml Assessment & Plan Problem List: (1) Psychosis not due to substance or known physiological condition ICD Codes: F29 - Unspecified psychosis not due to a substance or known physiological condition Assessment & Plan Continue current treatment plan Justification for Cont. Inpt. Patient would decompensate in a less restrictive setting Carmelo Velazquez DO Sep 10, 2017 14:18
[2017-09-10 18:17] VITALS: BP 117/62; PULSE 73; RESP 18; TEMP 97.3; O2SAT 96
[2017-09-10] MEDS: REMOVE OLD NICODERM (NICOTINE) PATCH T-DERMAL SCH (21:00)
[2017-09-11 06:01] VITALS: BP 119/55; PULSE 66; RESP 17; TEMP 97.6; O2SAT 96
[2017-09-11] MEDS: ANASTROZOLE 1 MG TAB PO SCH (08:37)
[2017-09-11] MEDS: ENOXAPARIN SODIUM 80 MG/0.8 ML SYRINGE SQ SCH (08:37)
[2017-09-11] MEDS: SODIUM CHLORIDE 0.9% FLUSH 10 ML FLUSH IV FLUSH SCH ×2 (08:37→20:38)
[2017-09-11] MEDS: BACITRACIN TOP OINT 15 GM TUBE TOPICAL SCH ×2 (08:37→20:43)
[2017-09-11] MEDS: HALOPERIDOL 5 MG TAB PO SCH ×2 (08:37→20:43)
[2017-09-11] MEDS: DOXYCYCLINE HYCLATE 100 MG TAB PO SCH ×2 (08:41→20:43)
--- NOTE | 2017-09-11 11:01 | HHI.PYPN ---
Subjective Chief Complaint: Psychosis Remarks Patient seen and examined. Chart reviewed. Case discussed with nursing staff. No behavioral issues noted. On my examination today, patient denies SI or HI. She denies AVH. Fairly relevant and appropriate in conversation. Denies side effects from medications. No acute physical complaints. She is presently on isolation precautions due to MRSA detected in wound culture, now treated with doxycycline, but she is desirous to go out for fresh air. I have placed a call to infection control to see if isolation can be discontinued now that MRSA has been treated, and they will look into it. Review of Systems Except as stated in HPI: all other systems reviewed are Neg Mental Status Examination Appearance: Appropriate Consciousness: Alert Orientation: Person, Place Motor Activity: Other (No abnormal motor movements noted) Speech: Unremarkable Language: Adequate Fund of Knowledge: Inadequate Attention and Concentration: Adequate Memory: Impaired Mood: Appropriate Affect: Blunt Thought Process & Associations: Circumstantial Thought Content: Appropriate Hallucination Type: None Delusion Type: None Suicidal Ideation: No Suicidal Plan: No Suicidal Intention: No Homicidal Ideation: No Homicidal Plan: No Homicidal Intention: No Insight: Poor Judgment: Poor Results Labs Date/Time Source Procedure Growth Status 08/29/17 20:15 Blood Line Aerobic Blood Culture - Final NO GROWTH IN 5 DAYS Complete 08/29/17 20:15 Blood Line Anaerobic Blood Culture - Final NO GROWTH IN 5 DAYS Complete 08/30/17 14:53 Wound Scalp Gram Stain - Final Complete 08/30/17 14:53 Wound Culture - Final S. Aureus Mrsa Complete Labs reviewed. Vitals/IOs Vital Signs Date Time Temp Pulse Resp B/P (MAP) Pulse Ox O2 Delivery O2 Flow Rate FiO2 09/11/17 06:01 97.6 66 17 119/55 (76) 96 Intake and Output 09/11/17 09/11/17 09/12/17 08:00 16:00 00:00 Intake Total 480 ml 360 ml Balance 480 ml 360 ml Assessment & Plan Problem List: (1) Psychosis not due to substance or known physiological condition ICD Codes: F29 - Unspecified psychosis not due to a substance or known physiological condition Assessment & Plan Continue current psychotropics as ordered. Oncology input noted and appreciated. Continue to monitor on inpatient unit. Continue other medications and care as ordered. Justification for Cont. Inpt. Risk for decompensation in less restrictive environment. Discharge Planning State hospital referral. Request HC Surrog/Guard Advoc?: Yes Fabrice Bryant MD Sep 11, 2017 11:01
[2017-09-11 18:00] VITALS: BP 120/76; PULSE 89; RESP 18; TEMP 97.5; O2SAT 97
[2017-09-11] MEDS: REMOVE OLD NICODERM (NICOTINE) PATCH T-DERMAL SCH (20:39)
[2017-09-12 06:16] VITALS: BP 99/52; PULSE 69; RESP 16; TEMP 98.1; O2SAT 98
[2017-09-12] MEDS: SODIUM CHLORIDE 0.9% FLUSH 10 ML FLUSH IV FLUSH SCH ×2 (09:00→20:42)
[2017-09-12] MEDS: ANASTROZOLE 1 MG TAB PO SCH (09:22)
[2017-09-12] MEDS: HALOPERIDOL 5 MG TAB PO SCH ×2 (09:22→20:42)
[2017-09-12] MEDS: DOXYCYCLINE HYCLATE 100 MG TAB PO SCH ×2 (09:22→20:42)
[2017-09-12] MEDS: ENOXAPARIN SODIUM 80 MG/0.8 ML SYRINGE SQ SCH (09:23)
[2017-09-12] MEDS: BACITRACIN TOP OINT 15 GM TUBE TOPICAL SCH ×2 (09:23→20:43)
--- NOTE | 2017-09-12 10:50 | HHI.PYPN ---
Subjective Chief Complaint: Psychosis Remarks Patient seen and examined in atrium area. Chart reviewed. Case discussed with nursing staff who notes patient has been asking about daughter more. Patient was apparently able to say that daughter may work at a certain [employer] in [place]. She has been no behavioral problem. Case discussed in treatment team. On my examination, patient is calm and cooperative. We discuss plan of care regarding her breast ca, and patient asks some appropriate questions in this regard. She does ask about her daughter. She does not verbalize any psychotic material, nor did she describe any SI or HI. No side effects from medications. No physical complaints. Spoke with Inna Disla from oncology service to coordinate care around planned surgery for breast ca this week and aftercare plan. Review of Systems ROS Limitations: Poor Historian Except as stated in HPI: all other systems reviewed are Neg Mental Status Examination Appearance: Appropriate Consciousness: Alert Orientation: Person, Place Motor Activity: Other (No motor abnormalities noted) Speech: Unremarkable Language: Adequate Fund of Knowledge: Inadequate Attention and Concentration: Adequate Memory: Impaired Mood: Appropriate Affect: Blunt Thought Process & Associations: Circumstantial Thought Content: Appropriate Hallucination Type: None Delusion Type: None Suicidal Ideation: No Suicidal Plan: No Suicidal Intention: No Homicidal Ideation: No Homicidal Plan: No Homicidal Intention: No Insight: Poor Judgment: Poor Results Labs Date/Time Source Procedure Growth Status 08/29/17 20:15 Blood Line Aerobic Blood Culture - Final NO GROWTH IN 5 DAYS Complete 08/29/17 20:15 Blood Line Anaerobic Blood Culture - Final NO GROWTH IN 5 DAYS Complete 08/30/17 14:53 Wound Scalp Gram Stain - Final Complete 08/30/17 14:53 Wound Culture - Final S. Aureus Mrsa Complete Labs reviewed Vitals/IOs Vital Signs Date Time Temp Pulse Resp B/P (MAP) Pulse Ox O2 Delivery O2 Flow Rate FiO2 09/12/17 06:16 98.1 69 16 99/52 (68) 98 Intake and Output 09/12/17 09/12/17 09/13/17 08:00 16:00 00:00 Intake Total 240 ml 600 ml Balance 240 ml 600 ml Assessment & Plan Problem List: (1) Psychosis not due to substance or known physiological condition ICD Codes: F29 - Unspecified psychosis not due to a substance or known physiological condition Assessment & Plan Continue current psychotropics as ordered. Appreciate environmental remediation consultant input. Continue to monitor on the medical psychiatric unit. Continue other medications and care as ordered. Justification for Cont. Inpt. High risk for decompensation in less restrictive environment. Discharge Planning State hospital referral remains primary plan, although this may be complicated by post-surgical chemotherapeutic regimen. We will have a better sense after surgery is completed. We will try to contact patient's daughter to see if she is willing to be involved in patient's case and be of assistance in discharge planning. Request HC Surrog/Guard Advoc?: Yes Fabrice Bryant MD Sep 12, 2017 10:50
[2017-09-12 18:39] VITALS: BP 132/76; PULSE 100; RESP 16; TEMP 97.9; O2SAT 98
[2017-09-12] MEDS: REMOVE OLD NICODERM (NICOTINE) PATCH T-DERMAL SCH (20:38)
[2017-09-13 05:29] VITALS: BP 129/74; PULSE 70; RESP 16; TEMP 98.1; O2SAT 97
--- NOTE | 2017-09-13 07:54 | HHI.PYPN ---
Subjective Chief Complaint: Psychosis Remarks Patient seen and examined. Chart reviewed. Case discussed with nursing staff. No behavioral issues noted. Nurse notes that patient was able to speak with daughter over the phone last night and was quite pleased about this. Nursing has also obtained VASILE from patient's GA so that we may speak with daughter as well. On my exam, patient is in good spirits. She is looking forward to fresh air and the movie group. She denies SI/HI/AVH. Remains fairly appropriate in conversation, and we once again review the plan of care. No side effects from medications. No physical complaints. I did endeavor to reach patient's daughter on 2 separate occasions today at the number contained in the counselor's notes, and I left generic voicemails requesting a call back. Review of Systems ROS Limitations: Poor Historian Except as stated in HPI: all other systems reviewed are Neg Mental Status Examination Appearance: Appropriate Consciousness: Alert Orientation: Person, Place (at least) Motor Activity: Other (No motor abnormalities noted) Speech: Unremarkable Language: Adequate Fund of Knowledge: Inadequate Attention and Concentration: Adequate Memory: Impaired Mood: Appropriate Affect: Appropriate Thought Process & Associations: Circumstantial (fairly organized today) Thought Content: Appropriate Hallucination Type: None Delusion Type: None Suicidal Ideation: No Suicidal Plan: No Suicidal Intention: No Homicidal Ideation: No Homicidal Plan: No Homicidal Intention: No Insight: Poor Judgment: Poor Results Labs Date/Time Source Procedure Growth Status 08/29/17 20:15 Blood Line Aerobic Blood Culture - Final NO GROWTH IN 5 DAYS Complete 08/29/17 20:15 Blood Line Anaerobic Blood Culture - Final NO GROWTH IN 5 DAYS Complete 08/30/17 14:53 Wound Scalp Gram Stain - Final Complete 08/30/17 14:53 Wound Culture - Final S. Aureus Mrsa Complete Labs reviewed Vitals/IOs Vital Signs Date Time Temp Pulse Resp B/P (MAP) Pulse Ox O2 Delivery O2 Flow Rate FiO2 09/13/17 05:29 98.1 70 16 129/74 (92) 97 Intake and Output 09/13/17 09/13/17 09/14/17 08:00 16:00 00:00 Intake Total 240 ml Balance 240 ml Assessment & Plan Problem List: (1) Psychosis not due to substance or known physiological condition ICD Codes: F29 - Unspecified psychosis not due to a substance or known physiological condition Assessment & Plan Continue current psychiatric medications as ordered. Continue to monitor on the medical psychiatric unit. Continue other care as ordered. Justification for Cont. Inpt. Risk for decompensation in less restrictive environment. Discharge Planning To be determined. Possible state hospital referral after patient has recovered from surgery. Request HC Surrog/Guard Advoc?: Yes Fabrice Bryant MD Sep 13, 2017 07:54
[2017-09-13] MEDS: SODIUM CHLORIDE 0.9% FLUSH 10 ML FLUSH IV FLUSH SCH ×2 (09:00→20:51)
[2017-09-13] MEDS: ANASTROZOLE 1 MG TAB PO SCH (10:56)
[2017-09-13] MEDS: HALOPERIDOL 5 MG TAB PO SCH ×2 (10:56→20:53)
[2017-09-13] MEDS: DOXYCYCLINE HYCLATE 100 MG TAB PO SCH ×2 (10:57→20:53)
[2017-09-13] MEDS: ENOXAPARIN SODIUM 80 MG/0.8 ML SYRINGE SQ SCH (10:57)
[2017-09-13] MEDS: BACITRACIN TOP OINT 15 GM TUBE TOPICAL SCH ×2 (10:58→20:53)
[2017-09-13 18:00] VITALS: BP 106/78; PULSE 74; RESP 17; TEMP 97.7; O2SAT 95
[2017-09-13] MEDS: REMOVE OLD NICODERM (NICOTINE) PATCH T-DERMAL SCH (20:52)
[2017-09-14 06:31] VITALS: BP 108/73; PULSE 70; RESP 18; TEMP 97.5; O2SAT 99
[2017-09-14] MEDS: ANASTROZOLE 1 MG TAB PO SCH (09:55)
[2017-09-14] MEDS: HALOPERIDOL 5 MG TAB PO SCH ×2 (09:55→20:58)
[2017-09-14] MEDS: DOXYCYCLINE HYCLATE 100 MG TAB PO SCH ×2 (09:55→20:58)
[2017-09-14] MEDS: ENOXAPARIN SODIUM 80 MG/0.8 ML SYRINGE SQ SCH (09:55)
[2017-09-14] MEDS: BACITRACIN TOP OINT 15 GM TUBE TOPICAL SCH ×2 (09:59→21:00)
[2017-09-14] MEDS: SODIUM CHLORIDE 0.9% FLUSH 10 ML FLUSH IV FLUSH SCH ×2 (10:00→20:57)
--- NOTE | 2017-09-14 11:39 | HHI.PYPN ---
Subjective Chief Complaint: Psychosis Remarks Patient seen and examined. Chart reviewed. Case discussed with nursing staff. Patient is in good spirits, although she does express some trepidation about upcoming surgery. She notes that she has undergone jaw surgery in the past and wonders if this is similar. Patient is fairly appropriate in conversation and does not verbalize any psychotic material. No reported side effects from medications, but patient does have a mild resting tremor. When I suggest we start a medication to counteract this side effect, she replies, "Some Cogentin? " and notes that she has been on this medication previously for side effect management from antipsychotics. No acute physical complaints. I was able to speak with patient's daughter Kate this morning over the phone. She notes that the patient has a history of schizophrenia stretching back to Kate's adolescence at least. Kate notes that she had to be removed from the home as a minor because of patient's mental health issues. We discuss patient's hospital course so far and plan of care going forward. Kate plans to try to make a visit to the patient this weekend. Review of Systems ROS Limitations: Poor Historian Except as stated in HPI: all other systems reviewed are Neg Mental Status Examination Appearance: Appropriate Consciousness: Alert Orientation: Person, Place Motor Activity: Other (Mild resting hand tremor. No cogwheeling, no hypomimia , no dystonia, no dyskinesia.) Speech: Unremarkable Language: Adequate Fund of Knowledge: Inadequate Attention and Concentration: Adequate Memory: Impaired (Improving) Mood: Appropriate Affect: Appropriate Thought Process & Associations: Intact Thought Content: Appropriate Hallucination Type: None Delusion Type: None Suicidal Ideation: No Suicidal Plan: No Suicidal Intention: No Homicidal Ideation: No Homicidal Plan: No Homicidal Intention: No Insight: Poor Judgment: Poor Results Labs Date/Time Source Procedure Growth Status 08/29/17 20:15 Blood Line Aerobic Blood Culture - Final NO GROWTH IN 5 DAYS Complete 08/29/17 20:15 Blood Line Anaerobic Blood Culture - Final NO GROWTH IN 5 DAYS Complete 08/30/17 14:53 Wound Scalp Gram Stain - Final Complete 08/30/17 14:53 Wound Culture - Final S. Aureus Mrsa Complete Labs reviewed Vitals/IOs Vital Signs Date Time Temp Pulse Resp B/P (MAP) Pulse Ox O2 Delivery O2 Flow Rate FiO2 09/14/17 06:31 97.5 70 18 108/73 (85) 99 Intake and Output 09/14/17 09/14/17 09/15/17 08:00 16:00 00:00 Intake Total 240 ml 600 ml Balance 240 ml 600 ml Assessment & Plan Problem List: (1) Schizophrenia ICD Codes: F20.9 - Schizophrenia, unspecified Assessment & Plan Continue Haldol as ordered. Add low-dose Cogentin for side effect management. Continue to monitor on the medical psychiatric unit. Continue other medications and care as ordered. Justification for Cont. Inpt. High risk for decompensation in less restrictive environment. Discharge Planning Possible critical access hospital hospital referral. Request HC Surrog/Guard Advoc?: Yes Problem Qualifiers (1) Schizophrenia: Qualified Codes: F20.3 - Undifferentiated schizophrenia Fabrice Bryant MD Sep 14, 2017 11:39
[2017-09-14] MEDS: NICOTINE 21 MG/24 HR PATCH T-DERMAL PRN (17:21)
[2017-09-14 18:10] VITALS: BP 131/86; PULSE 65; RESP 18; TEMP 97.6; O2SAT 98
[2017-09-14] MEDS: BENZTROPINE MESYLATE 1 MG TAB PO SCH (20:58)
[2017-09-14] MEDS: REMOVE OLD NICODERM (NICOTINE) PATCH T-DERMAL SCH (21:00)
[2017-09-15 06:00] VITALS: BP 120/71; PULSE 72; RESP 16; TEMP 98; O2SAT 96
[2017-09-15] MEDS: BENZTROPINE MESYLATE 1 MG TAB PO SCH ×2 (09:00→21:05)
[2017-09-15] MEDS: ANASTROZOLE 1 MG TAB PO SCH (09:00)
[2017-09-15] MEDS: DOXYCYCLINE HYCLATE 100 MG TAB PO SCH ×2 (09:00→21:05)
[2017-09-15] MEDS: SODIUM CHLORIDE 0.9% FLUSH 10 ML FLUSH IV FLUSH SCH ×2 (09:00→21:04)
[2017-09-15] MEDS: HALOPERIDOL 5 MG TAB PO SCH ×2 (09:00→21:05)
[2017-09-15] MEDS: BACITRACIN TOP OINT 15 GM TUBE TOPICAL SCH ×2 (09:00→21:06)
[2017-09-15] MEDS: ENOXAPARIN SODIUM 80 MG/0.8 ML SYRINGE SQ SCH (09:00)
--- NOTE | 2017-09-15 13:52 | HHI.PYPN ---
Subjective Chief Complaint: Psychosis Remarks Patient seen and examined with nurse. Chart reviewed. Case discussed with nursing staff. Per nursing staff, no real behavioral issues on the unit, although the patient has been ruminating this morning about a cousin who was reportedly murdered in assisted. On my examination today, the patient denies AVH. No SI or HI. Unclear if material regarding cousin is reality based or not, and the patient herself says that she has "gotta think through what is real and what is not." Reports that EPS is significantly improved with Cogentin. No other medication side effects. No acute physical complaints. Review of Systems Except as stated in HPI: all other systems reviewed are Neg Mental Status Examination Appearance: Appropriate Consciousness: Alert Orientation: Person, Place Motor Activity: Other (Resting hand tremor illuminated. No other motor abnormalities noted.) Speech: Other (Somewhat loud as patient is hard of hearing) Language: Adequate Fund of Knowledge: Inadequate Attention and Concentration: Adequate Memory: Impaired (Improved) Mood: Appropriate Affect: Appropriate Thought Process & Associations: Intact Thought Content: Appropriate Hallucination Type: None Delusion Type: None Suicidal Ideation: No Suicidal Plan: No Suicidal Intention: No Homicidal Ideation: No Homicidal Plan: No Homicidal Intention: No Insight: Poor Judgment: Poor Results Labs Date/Time Source Procedure Growth Status 08/29/17 20:15 Blood Line Aerobic Blood Culture - Final NO GROWTH IN 5 DAYS Complete 08/29/17 20:15 Blood Line Anaerobic Blood Culture - Final NO GROWTH IN 5 DAYS Complete 08/30/17 14:53 Wound Scalp Gram Stain - Final Complete 08/30/17 14:53 Wound Culture - Final S. Aureus Mrsa Complete Labs reviewed Vitals/IOs Vital Signs Date Time Temp Pulse Resp B/P (MAP) Pulse Ox O2 Delivery O2 Flow Rate FiO2 09/15/17 06:00 98.0 72 16 120/71 (87) 96 Intake and Output 09/15/17 09/15/17 09/16/17 08:00 16:00 00:00 Intake Total 600 ml 360 ml Balance 600 ml 360 ml Assessment & Plan Problem List: (1) Schizophrenia ICD Codes: F20.9 - Schizophrenia, unspecified Assessment & Plan Continue Haldol and Cogentin as ordered. Continue to monitor on the inpatient unit. Continue other medications and care as ordered. Justification for Cont. Inpt. Risk for decompensation in less restrictive environment. Discharge Planning To be determined Request HC Surrog/Guard Advoc?: Yes Problem Qualifiers (1) Schizophrenia: Qualified Codes: F20.3 - Undifferentiated schizophrenia Fabrice Bryant MD Sep 15, 2017 13:52
[2017-09-15] MEDS: NICOTINE 21 MG/24 HR PATCH T-DERMAL PRN (15:20)
[2017-09-15] MEDS: oxyCODONE/ACETAMINOPHEN 5 MG/325 MG TAB PO PRN (18:15)
--- NOTE | 2017-09-15 19:33 | PD.ONC.PN ---
Subjective Subjective Remarks "where am I going to live" Discussed surgery date 09/22/17. Concern about reconstruction, surprised that she could have reconstruction after mastectomy. Band aid over L forearm wound healed. Objective Data Date Time Temp Pulse Resp B/P (MAP) Pulse Ox O2 Delivery O2 Flow Rate FiO2 09/15/17 06:00 98.0 72 16 120/71 (87) 96 09/15/17 09/15/17 09/15/17 07:00 15:00 23:00 Intake Total 240 ml 720 ml Balance 240 ml 720 ml Administered Medications Medications (Trade) Dose Ordered Sig/Renard Route PRN Reason Start Time Stop Time Status Last Admin Dose Admin Zolpidem Tartrate (Ambien) 5 mg HS PRN PO INSOMNIA 07/11/17 21:15 09/05/17 20:52 Lorazepam (Ativan) 1 mg Q6H PRN PO MODERATE TO SEVERE ANXIETY 07/11/17 21:15 09/07/17 18:15 Acetaminophen (Tylenol) 650 mg Q4H PRN PO Pain 1-5 or Temp >101F 07/11/17 21:15 09/08/17 09:55 Al Hydrox/Mg Hydrox/Simethicone (Mag-Al Plus Susp Liq) 30 ml Q6H PRN PO DYSPEPSIA 07/11/17 21:15 08/09/17 20:48 Nicotine (Habitrol 21 Mg Patch.24 Hr) 1 patch DAILY PRN T-DERMAL nicotine craving 07/11/17 21:15 09/15/17 15:20 Oxycodone/ Acetaminophen (Percocet 5-325 Mg) 1 tab Q6H PRN PO PAIN 6-10 07/11/17 21:15 09/15/17 18:15 Sodium Chloride (NS Flush) 2 ml BID IV FLUSH 07/15/17 21:00 09/14/17 20:57 Bacitracin (Baciguent Oint) 1 applic Q12HR TOPICAL 07/26/17 21:00 09/14/17 21:00 Heparin Sodium (Porcine) (Heparin Central Flush) 500 units UNSCH IV FLUSH 07/28/17 23:45 09/07/17 22:15 Miscellaneous Information 1 HS T-DERMAL 08/04/17 21:00 09/14/17 21:00 Haloperidol (Haldol) 10 mg DAILY PO 08/08/17 09:00 09/15/17 09:00 Haloperidol (Haldol) 15 mg HS PO 08/07/17 21:00 09/14/17 20:58 Anastrozole (Arimidex) 1 mg DAILY PO 08/29/17 11:00 09/15/17 09:00 Enoxaparin Sodium (Lovenox Inj) 80 mg DAILY SQ 09/09/17 09:00 09/15/17 09:00 Doxycycline Hyclate (Vibratab) 100 mg BID PO 09/11/17 09:00 09/15/17 09:00 Benztropine Mesylate (Cogentin) 0.5 mg Q12HR PO 09/14/17 21:00 09/15/17 09:00 Objective Remarks GENERAL: Well-nourished, well-developed patient. SKIN: Warm and dry. L forearm, mild swelling, no erythema, small scab. Scalp with resolution scab. Small patch of erythema at site of previous scab. HEAD: Normocephalic. EYES: No scleral icterus. No injection or drainage. NECK: Supple, trachea midline. No JVD or lymphadenopathy. LYMPHATIC: No adenopathy. CARDIOVASCULAR: Regular rate and rhythm without murmurs. RESPIRATORY: Breath sounds equal bilaterally. No accessory muscle use. GASTROINTESTINAL: Abdomen soft, non-tender, nondistended. EXTREMITIES: No cyanosis, or edema. MUSCULOSKELETAL: Adequate muscle tone. Assessment/Plan Problem List: (1) HER2-positive carcinoma of right breast ICD Codes: C50.911 - Malignant neoplasm of unspecified site of right female breast Plan: 09/15/17. Standard of care to continue antibody therapy for 52 weeks. Transition care when transferred to [facility]. 09/08/17. Tolerated antibody therapy. Clinically responding. Ready for definitive surgery. Her 2 antibody therapy generally continue for 52 weeks. Tolerating AI well, continue anti estrogen therapy. Surgery per Dr. Sewell who scheduled it next week. No contraindication from oncology standpoint. No cytopenias. 09/07: give Herceptin/Perjeta today. plan on 12 weekly cycles of Taxol. She has had chemo 06/08/17, 06/15/17, 06/22/17, 06/29/17, 07/07/17, 07/14/17, 07/21/17 , 07/28/17, 08/04/17, 08/10/17 is week number 10, 08/18/17 is week 11, 08/25/17 is week 12. Herceptin/Perjeta is continued Q 3 weeks Goal Herceptin and Perjeta to continue for 52 weeks- which will be completed as outpatient. (2) Deep venous thrombosis of left upper extremity ICD Codes: I82.622 - Acute embolism and thrombosis of deep veins of left upper extremity Plan: 09/15/17. Cont Lovenox, hold on 09/21 for surgery 09/22. 09/08/17. Round down to nearest vial size. Anticipate DC of port and placement on other side to relieve the catheter related clot. Plan to switch to Coumadin after surgery. Hold Lovenox 24 hours prior to scheduled surgery. --on therapeutic dose Lovenox 90mg SQ q 24 hours --plan to start on coumadin post-surgery (3) Skin infection ICD Codes: L08.9 - Local infection of the skin and subcutaneous tissue, unspecified Plan: 09/15/17. Skin infection resolved. Stop abx therapy. 09/08/17. Skin infection resolving. Scalp lesion resolved. L arm lesion improving. No erythema. Continue abx. --Microbiology from wound shows MRSA --ID following --Patient on doxycycline --cellulitis resolved. lesions remain Assessment 52y/o female with locally advanced HER2/shirley over expressing ER positive right breast cancer currently admitted for psychosis. 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 h/o Chemotherapy induced anemia. Patient's GA rep is: Jessi Emery, [phone] (this is the person that needs to be called for consent) Plan 1. Plan for surgery with Dr. Sewell 09/22/17. 2. Lovenox 80mg hold on 09/21 3.Stop Abx- resolution skin infection. Alexa Villareal MD Sep 15, 2017 19:33
[2017-09-15] MEDS: REMOVE OLD NICODERM (NICOTINE) PATCH T-DERMAL SCH (21:00)
[2017-09-16] MEDS: LORazepam 1 MG TAB PO PRN (02:32)
[2017-09-16 06:00] VITALS: BP 100/58; PULSE 72; RESP 17; TEMP 97.6; O2SAT 98
[2017-09-16] MEDS: HALOPERIDOL 5 MG TAB PO SCH ×2 (08:21→20:34)
[2017-09-16] MEDS: ANASTROZOLE 1 MG TAB PO SCH (08:21)
[2017-09-16] MEDS: BACITRACIN TOP OINT 15 GM TUBE TOPICAL SCH ×2 (08:21→20:35)
[2017-09-16] MEDS: DOXYCYCLINE HYCLATE 100 MG TAB PO SCH ×2 (08:21→20:34)
[2017-09-16] MEDS: BENZTROPINE MESYLATE 1 MG TAB PO SCH ×2 (08:21→20:34)
[2017-09-16] MEDS: ENOXAPARIN SODIUM 80 MG/0.8 ML SYRINGE SQ SCH (08:22)
[2017-09-16] MEDS: SODIUM CHLORIDE 0.9% FLUSH 10 ML FLUSH IV FLUSH SCH ×2 (08:22→20:34)
--- NOTE | 2017-09-16 09:39 | HHI.PYPN ---
Subjective Chief Complaint: Psychosis Remarks Patient seen for follow, chart reviewed. Discussion nursing staff reported to have been no behavioral changes with patient. Patient was found lying hospital bed noted be superficially cooperative today he states that she is feeling tired with minimal interaction today. Patient agrees to participate and shower and groups and activities today. Review of Systems Except as stated in HPI: all other systems reviewed are Neg Mental Status Examination Appearance: Appropriate Consciousness: Alert Orientation: Person, Place Motor Activity: Other (Resting hand tremor illuminated. No other motor abnormalities noted.) Speech: Other (Somewhat loud as patient is hard of hearing) Language: Adequate Fund of Knowledge: Inadequate Attention and Concentration: Adequate Memory: Impaired (Improved) Mood: Appropriate Affect: Blunt Thought Process & Associations: Intact Thought Content: Appropriate Hallucination Type: None Delusion Type: None Suicidal Ideation: No Suicidal Plan: No Suicidal Intention: No Homicidal Ideation: No Homicidal Plan: No Homicidal Intention: No Insight: Poor Judgment: Poor Results Labs Date/Time Source Procedure Growth Status 08/29/17 20:15 Blood Line Aerobic Blood Culture - Final NO GROWTH IN 5 DAYS Complete 08/29/17 20:15 Blood Line Anaerobic Blood Culture - Final NO GROWTH IN 5 DAYS Complete 08/30/17 14:53 Wound Scalp Gram Stain - Final Complete 08/30/17 14:53 Wound Culture - Final S. Aureus Mrsa Complete Vitals/IOs Vital Signs Date Time Temp Pulse Resp B/P (MAP) Pulse Ox O2 Delivery O2 Flow Rate FiO2 09/16/17 06:00 97.6 72 17 100/58 (72) 98 Assessment & Plan Problem List: (1) Schizophrenia ICD Codes: F20.9 - Schizophrenia, unspecified Assessment & Plan Continue to monitor mood and behavior. Continue current treatment regimen. Continue to encourage patient to maintain personal hygiene and participate in groups and activities on the unit. Discharge planning in progress. Justification for Cont. Inpt. At risk for further decompensation if at lower level of care Request HC Surrog/Guard Advoc?: Yes Problem Qualifiers (1) Schizophrenia: Qualified Codes: F20.3 - Undifferentiated schizophrenia Yadiel Enamorado MD Sep 16, 2017 09:39
[2017-09-16 18:06] VITALS: BP 129/80; PULSE 77; RESP 18; TEMP 97.2; O2SAT 96
[2017-09-16] MEDS: NICOTINE 21 MG/24 HR PATCH T-DERMAL PRN (18:21)
[2017-09-16] MEDS: REMOVE OLD NICODERM (NICOTINE) PATCH T-DERMAL SCH (20:35)
[2017-09-17 06:00] VITALS: BP 127/83; PULSE 82; RESP 16; TEMP 97.3; O2SAT 99
[2017-09-17] MEDS: BACITRACIN TOP OINT 15 GM TUBE TOPICAL SCH ×2 (09:00→20:04)
[2017-09-17] MEDS: SODIUM CHLORIDE 0.9% FLUSH 10 ML FLUSH IV FLUSH SCH ×2 (09:00→20:04)
[2017-09-17] MEDS: ENOXAPARIN SODIUM 80 MG/0.8 ML SYRINGE SQ SCH (09:35)
[2017-09-17] MEDS: HALOPERIDOL 5 MG TAB PO SCH ×2 (09:36→20:05)
[2017-09-17] MEDS: ANASTROZOLE 1 MG TAB PO SCH (09:36)
[2017-09-17] MEDS: BENZTROPINE MESYLATE 1 MG TAB PO SCH ×2 (09:36→20:06)
[2017-09-17] MEDS: DOXYCYCLINE HYCLATE 100 MG TAB PO SCH ×2 (09:36→20:05)
--- NOTE | 2017-09-17 13:35 | HHI.PYPN ---
Subjective Chief Complaint: Psychosis Remarks Patient seen for follow, chart reviewed. Discussion nursing staff reported the patient with no behavioral changes, has been compliant with treatment, noted to be good spirits. Patient was found lying on the unit noted B, cooperative. Patient states she is feeling "better", asking about group activities today, denies any physical complaints, requesting the possibility of having her hearing aids replaced. Review of Systems Except as stated in HPI: all other systems reviewed are Neg Mental Status Examination Appearance: Appropriate Consciousness: Alert Orientation: Person, Place Motor Activity: Other (Resting hand tremor illuminated. No other motor abnormalities noted.) Speech: Other (Somewhat loud as patient is hard of hearing) Language: Adequate Fund of Knowledge: Inadequate Attention and Concentration: Adequate Memory: Impaired (Improved) Mood: Appropriate Affect: Blunt Thought Process & Associations: Intact Thought Content: Appropriate Hallucination Type: None Delusion Type: None Suicidal Ideation: No Suicidal Plan: No Suicidal Intention: No Homicidal Ideation: No Homicidal Plan: No Homicidal Intention: No Insight: Poor Judgment: Poor Results Labs Date/Time Source Procedure Growth Status 08/29/17 20:15 Blood Line Aerobic Blood Culture - Final NO GROWTH IN 5 DAYS Complete 08/29/17 20:15 Blood Line Anaerobic Blood Culture - Final NO GROWTH IN 5 DAYS Complete 08/30/17 14:53 Wound Scalp Gram Stain - Final Complete 08/30/17 14:53 Wound Culture - Final S. Aureus Mrsa Complete Vitals/IOs Vital Signs Date Time Temp Pulse Resp B/P (MAP) Pulse Ox O2 Delivery O2 Flow Rate FiO2 09/17/17 06:00 97.3 82 16 127/83 (98) 99 Intake and Output 09/17/17 09/17/17 09/18/17 08:00 16:00 00:00 Intake Total 360 ml Balance 360 ml Assessment & Plan Problem List: (1) Schizophrenia ICD Codes: F20.9 - Schizophrenia, unspecified Assessment & Plan Patient to continue current treatment regimen, continue monitor mood and behavior. Discharge planning in progress. Justification for Cont. Inpt. At risk for further decompensation if at lower level of care Request HC Surrog/Guard Advoc?: Yes Problem Qualifiers (1) Schizophrenia: Qualified Codes: F20.3 - Undifferentiated schizophrenia Yadiel Enamorado MD Sep 17, 2017 13:35
[2017-09-17 18:23] VITALS: BP 131/86; PULSE 77; RESP 16; TEMP 98.2; O2SAT 97
[2017-09-17] MEDS: REMOVE OLD NICODERM (NICOTINE) PATCH T-DERMAL SCH (20:04)
[2017-09-17] MEDS: ZOLPIDEM TARTRATE 5 MG TAB PO PRN (23:05)
[2017-09-18 06:24] VITALS: BP 146/91; PULSE 70; RESP 16; TEMP 97.6; O2SAT 98
[2017-09-18] MEDS: BACITRACIN TOP OINT 15 GM TUBE TOPICAL SCH ×2 (09:00→20:40)
[2017-09-18] MEDS: SODIUM CHLORIDE 0.9% FLUSH 10 ML FLUSH IV FLUSH SCH ×2 (09:00→19:10)
[2017-09-18] MEDS: BENZTROPINE MESYLATE 1 MG TAB PO SCH ×2 (09:43→20:39)
[2017-09-18] MEDS: ANASTROZOLE 1 MG TAB PO SCH (09:43)
[2017-09-18] MEDS: HALOPERIDOL 5 MG TAB PO SCH ×2 (09:43→20:39)
[2017-09-18] MEDS: ENOXAPARIN SODIUM 80 MG/0.8 ML SYRINGE SQ SCH (09:44)
--- NOTE | 2017-09-18 10:44 | HHI.PYPN ---
Subjective Chief Complaint: Psychosis Remarks Patient seen and examined. Chart reviewed. Case discussed with nursing staff. No behavioral issues noted. Case discussed with counselor. On my examination today, the patient is in good spirits. She notes that her daughter visited over the weekend, and patient is pleased to see how well she is doing. No psychotic material verbalized. No side effects from medications. No physical complaints. Review of Systems Except as stated in HPI: all other systems reviewed are Neg Mental Status Examination Appearance: Appropriate Consciousness: Alert Orientation: Person, Place (At least) Motor Activity: Other (No motor abnormalities noted) Speech: Other (Remains somewhat loud as patient is hard of hearing) Language: Adequate Fund of Knowledge: Inadequate Attention and Concentration: Adequate Memory: Unremarkable Mood: Appropriate Affect: Appropriate Thought Process & Associations: Intact Thought Content: Appropriate Hallucination Type: None Delusion Type: None Suicidal Ideation: No Suicidal Plan: No Suicidal Intention: No Homicidal Ideation: No Homicidal Plan: No Homicidal Intention: No Insight: Poor Judgment: Poor Results Labs Date/Time Source Procedure Growth Status 08/29/17 20:15 Blood Line Aerobic Blood Culture - Final NO GROWTH IN 5 DAYS Complete 08/29/17 20:15 Blood Line Anaerobic Blood Culture - Final NO GROWTH IN 5 DAYS Complete 08/30/17 14:53 Wound Scalp Gram Stain - Final Complete 08/30/17 14:53 Wound Culture - Final S. Aureus Mrsa Complete Labs reviewed. No new labs. Vitals/IOs Vital Signs Date Time Temp Pulse Resp B/P (MAP) Pulse Ox O2 Delivery O2 Flow Rate FiO2 09/18/17 06:24 97.6 70 16 146/91 (109) 98 Intake and Output 09/18/17 09/18/17 09/19/17 08:00 16:00 00:00 Intake Total 360 ml Balance 360 ml Assessment & Plan Problem List: (1) Schizophrenia ICD Codes: F20.9 - Schizophrenia, unspecified Assessment & Plan Continue Haldol with Cogentin as ordered. Oncology input noted and appreciated. I note the patient's doxycycline has been discontinued upon resolution of skin infections. Awaiting surgery for patient's breast cancer. Continue to monitor on the inpatient unit. Continue other medications and care as ordered. Justification for Cont. Inpt. Complicating condition. Risk for decompensation in less restrictive environment. Discharge Planning Pending further treatment of patient's breast cancer. Possible state hospital referral versus placement. Case discussed with counselor. Request HC Surrog/Guard Advoc?: Yes Problem Qualifiers (1) Schizophrenia: Qualified Codes: F20.3 - Undifferentiated schizophrenia Fabrice Bryant MD Sep 18, 2017 10:44
[2017-09-18 18:00] VITALS: BP 150/90; PULSE 107; RESP 18; TEMP 97.9; O2SAT 98
[2017-09-18] MEDS: REMOVE OLD NICODERM (NICOTINE) PATCH T-DERMAL SCH (19:11)
[2017-09-19 05:35] VITALS: BP 120/66; PULSE 73; RESP 16; TEMP 97.8; O2SAT 97
[2017-09-19] MEDS: ENOXAPARIN SODIUM 80 MG/0.8 ML SYRINGE SQ SCH (08:11)
[2017-09-19] MEDS: BENZTROPINE MESYLATE 1 MG TAB PO SCH ×2 (08:11→20:22)
[2017-09-19] MEDS: HALOPERIDOL 5 MG TAB PO SCH ×2 (08:11→20:23)
[2017-09-19] MEDS: ANASTROZOLE 1 MG TAB PO SCH (08:11)
[2017-09-19] MEDS: SODIUM CHLORIDE 0.9% FLUSH 10 ML FLUSH IV FLUSH SCH ×2 (08:12→20:21)
[2017-09-19] MEDS: BACITRACIN TOP OINT 15 GM TUBE TOPICAL SCH ×2 (08:12→20:22)
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
[2017-09-19 18:10] VITALS: BP 125/74; PULSE 81; RESP 18; TEMP 97.9; O2SAT 98
[2017-09-19] MEDS: REMOVE OLD NICODERM (NICOTINE) PATCH T-DERMAL SCH (20:23)
[2017-09-20 05:52] VITALS: BP 135/75; PULSE 70; RESP 17; TEMP 98; O2SAT 98
[2017-09-20] MEDS: HALOPERIDOL 5 MG TAB PO SCH ×2 (08:43→21:09)
[2017-09-20] MEDS: BENZTROPINE MESYLATE 1 MG TAB PO SCH ×2 (08:43→21:09)
[2017-09-20] MEDS: ANASTROZOLE 1 MG TAB PO SCH (08:45)
[2017-09-20] MEDS: ENOXAPARIN SODIUM 80 MG/0.8 ML SYRINGE SQ SCH (08:45)
--- NOTE | 2017-09-20 14:35 | HHI.PYPN ---
Subjective Chief Complaint: Psychosis Remarks Reviewed electronic medical records and discuss case with staff. Follow-up was conducted in patient's room. Prior to follow-up met with surgeon, medical oncologist, Dr. Bryant, and patient's daughter Kate to obtain consent for patient to have a radical mastectomy on Monday. The daughter did give permission and consent was obtained. Patient reports that she slept well and has been eating well. She has no complaints today and was asking the nurse if she could go to the movie this afternoon. Her mood is good and her affect is euthymic, she expresses feeling siobhan of her seeing her daughter again. Mental Status Examination Appearance: Appropriate Consciousness: Alert Orientation: Person, Place, Date/Time (approx) Motor Activity: Other (No abnormal motor movements noted) Speech: Unremarkable Language: Adequate Fund of Knowledge: Inadequate Attention and Concentration: Adequate Memory: Unremarkable Mood: Other (Depressed) Affect: Other (Somewhat tearful and dysphoric) Thought Process & Associations: Intact Thought Content: Appropriate Hallucination Type: None Delusion Type: None Suicidal Ideation: No Suicidal Plan: No Suicidal Intention: No Homicidal Ideation: No Homicidal Plan: No Homicidal Intention: No Insight: Poor Judgment: Poor Results Labs Date/Time Source Procedure Growth Status 08/29/17 20:15 Blood Line Aerobic Blood Culture - Final NO GROWTH IN 5 DAYS Complete 08/29/17 20:15 Blood Line Anaerobic Blood Culture - Final NO GROWTH IN 5 DAYS Complete 08/30/17 14:53 Wound Scalp Gram Stain - Final Complete 08/30/17 14:53 Wound Culture - Final S. Aureus Mrsa Complete Vitals/IOs Vital Signs Date Time Temp Pulse Resp B/P (MAP) Pulse Ox O2 Delivery O2 Flow Rate FiO2 09/20/17 05:52 98.0 70 17 135/75 (95) 98 Intake and Output 09/20/17 09/20/17 09/21/17 08:00 16:00 00:00 Intake Total 480 ml 480 ml Balance 480 ml 480 ml Assessment & Plan Problem List: (1) Schizophrenia ICD Codes: F20.9 - Schizophrenia, unspecified Assessment & Plan Estimated LOS: Patient's mastectomy is scheduled for Monday. A safe placement has been in the works. Discharge planning progresses based on her recovery. Days Justification for Cont. Inpt. Moving this patient to a lower level of care would likely result in decompensation. Discharge planning is in progress. Request HC Surrog/Guard Advoc?: Yes Problem Qualifiers (1) Schizophrenia: Qualified Codes: F20.3 - Undifferentiated schizophrenia Shanika Denney Sep 20, 2017 14:35
[2017-09-20 18:00] VITALS: BP 118/56; PULSE 76; RESP 17; TEMP 98; O2SAT 97
[2017-09-20] MEDS: SODIUM CHLORIDE 0.9% FLUSH 10 ML FLUSH IV FLUSH SCH (21:00)
[2017-09-20] MEDS: REMOVE OLD NICODERM (NICOTINE) PATCH T-DERMAL SCH (21:00)
[2017-09-20] MEDS: BACITRACIN TOP OINT 15 GM TUBE TOPICAL SCH (21:00)
[2017-09-21 06:00] VITALS: BP 118/73; PULSE 84; RESP 18; TEMP 99.2; O2SAT 98
[2017-09-21] MEDS: HALOPERIDOL 5 MG TAB PO SCH ×2 (08:15→20:47)
[2017-09-21] MEDS: ANASTROZOLE 1 MG TAB PO SCH (08:15)
[2017-09-21] MEDS: BENZTROPINE MESYLATE 1 MG TAB PO SCH ×2 (08:15→20:48)
[2017-09-21] MEDS: BACITRACIN TOP OINT 15 GM TUBE TOPICAL SCH ×2 (08:16→20:49)
[2017-09-21] MEDS: SODIUM CHLORIDE 0.9% FLUSH 10 ML FLUSH IV FLUSH SCH ×2 (09:00→20:49)
--- NOTE | 2017-09-21 10:56 | HHI.PYPN ---
Subjective Chief Complaint: Psychosis Remarks Patient seen and examined with nurse. Chart reviewed. Case discussed with nursing staff and with counselor. I attended meeting yesterday with daughter ( EDNA), MARGIE Denney as well as Dr. Sewell and REGLA Disla to discuss patient's mastectomy, scheduled for tomorrow. On my exam today, patient is considerably less anxious and more at ease today. She had a good visit with daughter yesterday and is in good spirits. She is quite relevant in conversation with no intruding delusional material. She subjectively feels better today. No SI/ HI. No medication side effects. No physical complaints. Review of Systems Except as stated in HPI: all other systems reviewed are Neg Mental Status Examination Appearance: Appropriate Consciousness: Alert Orientation: Person, Place, Date/Time Motor Activity: Other (no motoric abnormalities appreciated) Speech: Unremarkable Language: Adequate Fund of Knowledge: Inadequate Attention and Concentration: Adequate Memory: Unremarkable Mood: Appropriate Affect: Blunt Thought Process & Associations: Intact Thought Content: Appropriate Hallucination Type: None Delusion Type: None Suicidal Ideation: No Suicidal Plan: No Suicidal Intention: No Homicidal Ideation: No Homicidal Plan: No Homicidal Intention: No Insight: Poor Judgment: Poor Results Labs Date/Time Source Procedure Growth Status 08/29/17 20:15 Blood Line Aerobic Blood Culture - Final NO GROWTH IN 5 DAYS Complete 08/29/17 20:15 Blood Line Anaerobic Blood Culture - Final NO GROWTH IN 5 DAYS Complete 08/30/17 14:53 Wound Scalp Gram Stain - Final Complete 08/30/17 14:53 Wound Culture - Final S. Aureus Mrsa Complete Labs reviewed Vitals/IOs Vital Signs Date Time Temp Pulse Resp B/P (MAP) Pulse Ox O2 Delivery O2 Flow Rate FiO2 09/21/17 06:00 99.2 84 18 118/73 (88) 98 Intake and Output 09/21/17 09/21/17 09/22/17 08:00 16:00 00:00 Intake Total 240 ml Balance 240 ml Assessment & Plan Problem List: (1) Schizophrenia ICD Codes: F20.9 - Schizophrenia, unspecified Assessment & Plan Continue current psychotropics as ordered. Patient is for surgery tomorrow. If she is unable to take PO meds in the post-surgical period, we will plan to switch to parenteral forms (e.g. IM/IV Haldol and IM Cogentin) at equipotent doses and will monitor QTc with use of parenteral Haldol. Biomedical Repair Technician input appreciated. Continue to monitor on the medical psychiatric unit. Continue other medications and care as ordered. Justification for Cont. Inpt. Complicating condition. High risk for decompensation in less restrictive environment. Discharge Planning Placement versus state hospital referral. Case discussed with counselor. Request HC Surrog/Guard Advoc?: Yes Problem Qualifiers (1) Schizophrenia: Qualified Codes: F20.3 - Undifferentiated schizophrenia Fabrice Bryant MD Sep 21, 2017 10:56
[2017-09-21 18:24] VITALS: BP 118/73; PULSE 84; RESP 18; TEMP 99.2; O2SAT 98
[2017-09-21] MEDS: REMOVE OLD NICODERM (NICOTINE) PATCH T-DERMAL SCH (20:49)
[2017-09-22] MEDS ORDERED: HYDROmorphone HCL PF 2 MG/ML VIAL ONE (06:58)
[2017-09-22] MEDS ORDERED: ACETAMINOPHEN 1000 MG/100 ML 100 ML IV ONE (06:58)
--- NOTE | 2017-09-22 11:30 | HHI.PYPN ---
Subjective Chief Complaint: Psychosis Remarks Unable to assess patient today. She had her radical mastectomy. Patient is to return to the unit after recovery. Mental Status Examination Appearance: Appropriate Consciousness: Alert Orientation: Person, Place, Date/Time Motor Activity: Other (no motoric abnormalities appreciated) Speech: Unremarkable Language: Adequate Fund of Knowledge: Inadequate Attention and Concentration: Adequate Memory: Unremarkable Mood: Appropriate Affect: Blunt Thought Process & Associations: Intact Thought Content: Appropriate Hallucination Type: None Delusion Type: None Suicidal Ideation: No Suicidal Plan: No Suicidal Intention: No Homicidal Ideation: No Homicidal Plan: No Homicidal Intention: No Insight: Poor Judgment: Poor Results Labs Date/Time Source Procedure Growth Status 08/29/17 20:15 Blood Line Aerobic Blood Culture - Final NO GROWTH IN 5 DAYS Complete 08/29/17 20:15 Blood Line Anaerobic Blood Culture - Final NO GROWTH IN 5 DAYS Complete 08/30/17 14:53 Wound Scalp Gram Stain - Final Complete 08/30/17 14:53 Wound Culture - Final S. Aureus Mrsa Complete Vitals/IOs Vital Signs Date Time Temp Pulse Resp B/P (MAP) Pulse Ox O2 Delivery O2 Flow Rate FiO2 09/21/17 18:24 99.2 84 18 118/73 (88) 98 Assessment & Plan Problem List: (1) Schizophrenia ICD Codes: F20.9 - Schizophrenia, unspecified Assessment & Plan Estimated LOS: Patient surgery was performed today. Discharge pending recovery and a safe placement. Days Justification for Cont. Inpt. Moving this patient to a lower level of care would likely result in decompensation. Request HC Surrog/Guard Advoc?: Yes Problem Qualifiers (1) Schizophrenia: Qualified Codes: F20.3 - Undifferentiated schizophrenia Shanika Denney Sep 22, 2017 11:30
[2017-09-22 11:33] VITALS: BP 129/63; PULSE 73; RESP 16; TEMP 94.7
[2017-09-22] MEDS ORDERED: BENZTROPINE MESYLATE 2 MG/2 ML VIAL IM PRN (14:30)
[2017-09-22] MEDS ORDERED: ZOLPIDEM TARTRATE 5 MG TAB PO PRN (14:30)
[2017-09-22] MEDS ORDERED: LORazepam 1 MG TAB PO PRN (14:45)
[2017-09-22] MEDS ORDERED: MAGNESIUM HYDROXIDE SUSP 30 ML CUP PO PRN (15:00)
[2017-09-22] MEDS ORDERED: ALUMINUM/MAGNESIUM/SIMETH 30 ML CUP PO PRN (15:00)
[2017-09-22] MEDS ORDERED: LORazepam 2 MG/ML VIAL IM PRN (15:00)
[2017-09-22] MEDS ORDERED: ACETAMINOPHEN 325 MG TAB PO PRN (15:00)
[2017-09-22] MEDS ORDERED: ONDANSETRON HCL 4 MG/2 ML VIAL IV PUSH PRN (15:15)
[2017-09-22] MEDS ORDERED: MORPHINE SULFATE 4 MG/ML INJ IV PUSH PRN (15:15)
[2017-09-22 18:20] VITALS: BP 135/69; PULSE 100; RESP 18; TEMP 98.1; O2SAT 96
[2017-09-22] MEDS: BENZTROPINE MESYLATE 1 MG TAB PO SCH (20:39)
[2017-09-22] MEDS: ACETAMINOPHEN/HYDROcodone 325 MG/5 MG TAB PO PRN (20:39)
[2017-09-22] MEDS: HALOPERIDOL 5 MG TAB PO SCH (20:39)
[2017-09-23] MEDS: ACETAMINOPHEN/HYDROcodone 325 MG/5 MG TAB PO PRN ×2 (04:27→13:20)
[2017-09-23 06:00] VITALS: BP 135/80; PULSE 78; RESP 18; TEMP 97.2; O2SAT 97
[2017-09-23] MEDS: HALOPERIDOL 5 MG TAB PO SCH ×2 (09:00→20:20)
[2017-09-23] MEDS: BENZTROPINE MESYLATE 1 MG TAB PO SCH ×2 (09:00→20:20)
[2017-09-23] MEDS: ANASTROZOLE 1 MG TAB PO SCH (09:00)
[2017-09-23] MEDS: ACETAMINOPHEN/HYDROcodone 325 MG/7.5 MG TAB PO PRN ×2 (09:05→18:08)
--- NOTE | 2017-09-23 09:36 | HHI.PYPN ---
Subjective Chief Complaint: Psychosis Remarks The patient was seen today for psychiatric reevaluation. Patient is calm, cooperative, pleasant. She reports that she is happy that she had her surgery, she asked when she is going to be discharged. The patient also reports that she is happy that she reunion with her daughter this week. Reports good mood, denies pain or distress. Denies suicidal enemas ideation, she denies visual and auditory hallucinations. Oriented 3, compliant with her medications. Review of Systems Except as stated in HPI: all other systems reviewed are Neg Mental Status Examination Appearance: Appropriate Consciousness: Alert Orientation: Person, Place, Date/Time Motor Activity: Other (no motoric abnormalities appreciated) Speech: Unremarkable Language: Adequate Fund of Knowledge: Inadequate Attention and Concentration: Adequate Memory: Unremarkable Mood: Appropriate Affect: Blunt Thought Process & Associations: Intact Thought Content: Appropriate Hallucination Type: None Delusion Type: None Suicidal Ideation: No Suicidal Plan: No Suicidal Intention: No Homicidal Ideation: No Homicidal Plan: No Homicidal Intention: No Insight: Poor Judgment: Poor Results Labs Date/Time Source Procedure Growth Status 08/29/17 20:15 Blood Line Aerobic Blood Culture - Final NO GROWTH IN 5 DAYS Complete 08/29/17 20:15 Blood Line Anaerobic Blood Culture - Final NO GROWTH IN 5 DAYS Complete 08/30/17 14:53 Wound Scalp Gram Stain - Final Complete 08/30/17 14:53 Wound Culture - Final S. Aureus Mrsa Complete Vitals/IOs Vital Signs Date Time Temp Pulse Resp B/P (MAP) Pulse Ox O2 Delivery O2 Flow Rate FiO2 09/23/17 06:00 97.2 78 18 135/80 (98) 97 Intake and Output 09/23/17 09/23/17 09/24/17 08:00 16:00 00:00 Intake Total 360 ml Output Total 20 ml Balance -20 ml 360 ml Assessment & Plan Problem List: (1) Schizophrenia ICD Codes: F20.9 - Schizophrenia, unspecified Assessment & Plan: Continue current psychotropic regimen. Assessment & Plan Estimated LOS: days Justification for Cont. Inpt. Patient has an elevated risk to decompensate at a lower level of care. Request HC Surrog/Guard Advoc?: Yes Problem Qualifiers (1) Schizophrenia: Qualified Codes: F20.3 - Undifferentiated schizophrenia Palomo Pham MD Sep 23, 2017 09:35
[2017-09-23 17:19] VITALS: BP 125/75; PULSE 65; RESP 18; TEMP 97.5; O2SAT 97
--- NOTE | 2017-09-23 17:36 | HHI.PR ---
Subjective Subjective Notes No complaints, minimal pain. Objective Vitals/I&O Vital Signs Date Time Temp Pulse Resp B/P (MAP) Pulse Ox O2 Delivery O2 Flow Rate FiO2 09/23/17 17:19 97.5 65 18 125/75 (92) 97 Labs Date/Time Source Procedure Growth Status 08/29/17 20:15 Blood Line Aerobic Blood Culture - Final NO GROWTH IN 5 DAYS Complete 08/29/17 20:15 Blood Line Anaerobic Blood Culture - Final NO GROWTH IN 5 DAYS Complete 08/30/17 14:53 Wound Scalp Gram Stain - Final Complete 08/30/17 14:53 Wound Culture - Final S. Aureus Mrsa Complete Lungs: Clear Narrative Exam Dressing dry; incision clean and dry with antibiotic ointment on wound. DAVE output serosanguineous/bloody A/P Assessment and Plan POD #1 RIGHT radical mastectomy Healing well Continue postop management Jayden Sharpe MD Sep 23, 2017 17:36
[2017-09-23] MEDS: REMOVE OLD NICODERM (NICOTINE) PATCH T-DERMAL SCH (20:20)
[2017-09-24] MEDS: ACETAMINOPHEN/HYDROcodone 325 MG/7.5 MG TAB PO PRN (00:45)
[2017-09-24 06:08] VITALS: BP 127/64; PULSE 79; RESP 18; TEMP 98; O2SAT 97
[2017-09-24] MEDS: HALOPERIDOL 5 MG TAB PO SCH ×2 (08:09→20:50)
[2017-09-24] MEDS: ANASTROZOLE 1 MG TAB PO SCH (08:10)
[2017-09-24] MEDS: BENZTROPINE MESYLATE 1 MG TAB PO SCH ×2 (08:10→20:50)
--- NOTE | 2017-09-24 11:42 | HHI.PR ---
Subjective Subjective Notes no acute issues, tolerating po pain controolled Objective Vitals/I&O Vital Signs Date Time Temp Pulse Resp B/P (MAP) Pulse Ox O2 Delivery O2 Flow Rate FiO2 09/24/17 06:08 98.0 79 18 127/64 (85) 97 Labs Date/Time Source Procedure Growth Status 08/29/17 20:15 Blood Line Aerobic Blood Culture - Final NO GROWTH IN 5 DAYS Complete 08/29/17 20:15 Blood Line Anaerobic Blood Culture - Final NO GROWTH IN 5 DAYS Complete 08/30/17 14:53 Wound Scalp Gram Stain - Final Complete 08/30/17 14:53 Wound Culture - Final S. Aureus Mrsa Complete Lungs: Clear Abdomen: Non-distended, Non-tender Narrative Exam right breast incisions c/d/i adenike serosang A/P Assessment and Plan POD #2RIGHT radical mastectomy Healing well Continue postop management reg diet oob Noel Spencer MD Sep 24, 2017 11:42
--- NOTE | 2017-09-24 12:41 | HHI.PYPN ---
Subjective Chief Complaint: Psychosis Remarks The patient was seen today for psychiatric reevaluation. Patient was found sleeping, but easily arousable. She reports good mood, denies distress and pain. She denies suicidal and homicidal ideation, she denies visual and auditory hallucinations. Oriented 3. Compliant with medications Mental Status Examination Appearance: Appropriate Consciousness: Alert Orientation: Person, Place, Date/Time Motor Activity: Other (no motoric abnormalities appreciated) Speech: Unremarkable Language: Adequate Fund of Knowledge: Inadequate Attention and Concentration: Adequate Memory: Unremarkable Mood: Appropriate Affect: Blunt Thought Process & Associations: Intact Thought Content: Appropriate Hallucination Type: None Delusion Type: None Suicidal Ideation: No Suicidal Plan: No Suicidal Intention: No Homicidal Ideation: No Homicidal Plan: No Homicidal Intention: No Insight: Poor Judgment: Poor Results Labs Date/Time Source Procedure Growth Status 08/29/17 20:15 Blood Line Aerobic Blood Culture - Final NO GROWTH IN 5 DAYS Complete 08/29/17 20:15 Blood Line Anaerobic Blood Culture - Final NO GROWTH IN 5 DAYS Complete 08/30/17 14:53 Wound Scalp Gram Stain - Final Complete 08/30/17 14:53 Wound Culture - Final S. Aureus Mrsa Complete Vitals/IOs Vital Signs Date Time Temp Pulse Resp B/P (MAP) Pulse Ox O2 Delivery O2 Flow Rate FiO2 09/24/17 06:08 98.0 79 18 127/64 (85) 97 Intake and Output 09/24/17 09/24/17 09/25/17 08:00 16:00 00:00 Intake Total 240 ml 240 ml Output Total 40 ml Balance 200 ml 240 ml Assessment & Plan Problem List: (1) Schizophrenia ICD Codes: F20.9 - Schizophrenia, unspecified Assessment & Plan Estimated LOS: days Justification for Cont. Inpt. Patient has an elevated risk to decompensate at a lower level of care Request HC Surrog/Guard Advoc?: Yes Problem Qualifiers (1) Schizophrenia: Qualified Codes: F20.3 - Undifferentiated schizophrenia Palomo Pham MD Sep 24, 2017 12:41
[2017-09-24 18:10] VITALS: BP 129/79; PULSE 80; RESP 16; TEMP 97.4; O2SAT 98
[2017-09-24] MEDS: REMOVE OLD NICODERM (NICOTINE) PATCH T-DERMAL SCH (20:52)
[2017-09-25 06:25] VITALS: BP 128/71; PULSE 69; RESP 16; TEMP 98.2; O2SAT 96
[2017-09-25] MEDS: ANASTROZOLE 1 MG TAB PO SCH (08:08)
[2017-09-25] MEDS: BENZTROPINE MESYLATE 1 MG TAB PO SCH ×2 (08:08→20:57)
[2017-09-25] MEDS: HALOPERIDOL 5 MG TAB PO SCH ×2 (08:09→20:57)
--- NOTE | 2017-09-25 13:11 | HHI.PYPN ---
Subjective Chief Complaint: Psychosis Remarks Patient seen and examined. Chart reviewed. Patient is POD#3 s/p R radical mastectomy. Case discussed with nursing staff, who note patient has been verbalizing occasional AH. On my exam today, patient is resting calmly in her room. She does indeed report some AH of "people talking in the background." No CAH. AH are distressing for patient. She denies any SI or HI. She does not verbalize any delusional material but does describe some occasional paranoia. Denies side effects from medications. No physical complaints besides some constipation. She is still passing flatus. Review of Systems Except as stated in HPI: all other systems reviewed are Neg Mental Status Examination Appearance: Appropriate Consciousness: Alert Orientation: Person, Place, Date/Time Motor Activity: Other (No abnormal motor movements noted) Speech: Unremarkable Language: Adequate Fund of Knowledge: Inadequate Attention and Concentration: Adequate Memory: Unremarkable Mood: Appropriate Affect: Blunt (Remain somewhat blunted) Thought Process & Associations: Intact Thought Content: Appropriate Hallucination Type: Auditory (Noncommand) Delusion Type: None (None presently but occasional paranoia per patient report) Suicidal Ideation: No Suicidal Plan: No Suicidal Intention: No Homicidal Ideation: No Homicidal Plan: No Homicidal Intention: No Insight: Poor Judgment: Poor Results Labs Date/Time Source Procedure Growth Status 08/29/17 20:15 Blood Line Aerobic Blood Culture - Final NO GROWTH IN 5 DAYS Complete 08/29/17 20:15 Blood Line Anaerobic Blood Culture - Final NO GROWTH IN 5 DAYS Complete 08/30/17 14:53 Wound Scalp Gram Stain - Final Complete 08/30/17 14:53 Wound Culture - Final S. Aureus Mrsa Complete Labs reviewed Vitals/IOs Vital Signs Date Time Temp Pulse Resp B/P (MAP) Pulse Ox O2 Delivery O2 Flow Rate FiO2 09/25/17 06:25 98.2 69 16 128/71 (90) 96 Intake and Output 09/25/17 09/25/17 09/26/17 08:00 16:00 00:00 Intake Total 120 ml 720 ml Output Total 50 ml Balance 70 ml 720 ml Assessment & Plan Problem List: (1) Schizophrenia ICD Codes: F20.9 - Schizophrenia, unspecified Assessment & Plan Patient with mild exacerbation of psychotic symptoms in the post-surgical state. There is no evidence of delirium. Since AH are distressing for patient , I will titrate Haldol to 15mg BID to try to bring these symptoms under better control. Appreciate building consultant input. Continue to monitor on the medical psychiatric unit. Continue other medications and care as ordered. Justification for Cont. Inpt. Medication changes. Risk for decompensation in less restrictive environment. Discharge Planning Placement versus state hospital Request HC Surrog/Guard Advoc?: Yes Problem Qualifiers (1) Schizophrenia: Qualified Codes: F20.3 - Undifferentiated schizophrenia Fabrice Bryant MD Sep 25, 2017 13:11
--- NOTE | 2017-09-25 13:38 | PD.ONC.PN ---
Subjective Subjective Remarks Afebrile overnight. Patient resting in room. denies pain from mastectomy. states she feels constipated. has not had a bowel movement in a few days. states she is passing gas. Objective Data Date Time Temp Pulse Resp B/P (MAP) Pulse Ox O2 Delivery O2 Flow Rate FiO2 09/25/17 06:25 98.2 69 16 128/71 (90) 96 09/24/17 18:10 97.4 80 16 129/79 (96) 98 09/25/17 09/25/17 09/25/17 07:00 15:00 23:00 Intake Total 120 ml 720 ml Output Total 50 ml Balance 70 ml 720 ml Administered Medications Medications (Trade) Dose Ordered Sig/Renard Route PRN Reason Start Time Stop Time Status Last Admin Dose Admin Anastrozole (Arimidex) 1 mg DAILY PO 09/23/17 09:00 09/25/17 08:08 Benztropine Mesylate (Cogentin) 0.5 mg Q12HR PO 09/22/17 21:00 09/25/17 08:08 Haloperidol (Haldol) 10 mg DAILY PO 09/23/17 09:00 09/25/17 08:09 Haloperidol (Haldol) 15 mg HS PO 09/22/17 21:00 09/24/17 20:50 Acetaminophen (Tylenol) 650 mg Q4H PRN PO Temp >101F 09/22/17 15:00 09/25/17 08:09 Acetaminophen/ Hydrocodone Bitart ([place] 5-325 Mg) 1 tab Q4H PRN PO PAIN 3-5 09/22/17 15:15 09/23/17 13:20 Acetaminophen/ Hydrocodone Bitart ([place] 7.5-325 Mg) 1 tab Q4H PRN PO PAIN 6-10 09/22/17 15:15 09/24/17 00:45 Objective Remarks GENERAL: Pleasant middle aged female, lying in bed resting. SKIN: Warm and dry. HEAD: Normocephalic. EYES: No scleral icterus. No injection or drainage. BREAST: s/p right mastectomy. incision site clean without bleeding or erythema. DAVE drain in place with SS drainage. NECK: Supple, trachea midline. CARDIOVASCULAR: Regular rate and rhythm RESPIRATORY: Breath sounds equal bilaterally. No accessory muscle use. GASTROINTESTINAL: Abdomen soft, non-tender, nondistended. EXTREMITIES: No cyanosis, or edema. NEUROLOGICAL: No obvious focal deficit. Awake, alert, and oriented x3. Assessment/Plan Problem List: (1) HER2-positive carcinoma of right breast ICD Codes: C50.911 - Malignant neoplasm of unspecified site of right female breast Plan: 09/25: doing well post-operative. will start colace for constipation. 09/15/17. Standard of care to continue antibody therapy for 52 weeks. Transition care when transferred to [facility] hospital. 09/08/17. Tolerated antibody therapy. Clinically responding. Ready for definitive surgery. Her 2 antibody therapy generally continue for 52 weeks. Tolerating AI well, continue anti estrogen therapy. Surgery per Dr. Sewell who scheduled it next week. No contraindication from oncology standpoint. No cytopenias. 09/07: give Herceptin/Perjeta today. plan on 12 weekly cycles of Taxol. She has had chemo 06/08/17, 06/15/17, 06/22/17, 06/29/17, 07/07/17, 07/14/17, 07/21/17 , 07/28/17, 08/04/17, 08/10/17 is week number 10, 08/18/17 is week 11, 08/25/17 is week 12. Herceptin/Perjeta is continued Q 3 weeks Goal Herceptin and Perjeta to continue for 52 weeks- which will be completed as outpatient. (2) Deep venous thrombosis of left upper extremity ICD Codes: I82.622 - Acute embolism and thrombosis of deep veins of left upper extremity Plan: 09/25: resume Lovenox when cleared by surgery. 09/15/17. Cont Lovenox, hold on 09/21 for surgery 09/22. 09/08/17. Round down to nearest vial size. Anticipate DC of port and placement on other side to relieve the catheter related clot. Plan to switch to Coumadin after surgery. Hold Lovenox 24 hours prior to scheduled surgery. --on therapeutic dose Lovenox 90mg SQ q 24 hours --plan to start on coumadin post-surgery Assessment 52y/o female with locally advanced HER2/shirley over expressing ER positive right breast cancer currently admitted for psychosis. 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 h/o Chemotherapy induced anemia. Patient's GA rep is: Jessi Emery, [phone] (this is the person that needs to be called for consent) Plan 1. start colace for constipation 2. d/w Dr. Sewell--ok to resume Lovenox today. will start at 40mg SQ q 12 hours today and increase tomorrow as long as no bleeding complications. Attending Statement The exam, history, and the medical decision-making described in the above note were completed with the assistance of the mid-level provider. I reviewed and agree with the findings presented. I attest that I had a [id number] encounter with the patient on the same day, and personally performed and documented my assessment and findings in the medical record. Pt seen and examined, drain still in place draining serosangenous fluid. Scalp and L arm lesion/infection resolved. Isolation still in place. L arm swelling resolved. Tolerating Lovenox, anticipate starting Coumadin when drain removed. Discussed due for Herceptin/Pertuzumab this Monday. Idalia Disla Sep 25, 2017 13:38 Alexa Villareal MD Sep 25, 2017 23:42
--- NOTE | 2017-09-25 14:56 | HHI.PR ---
Subjective Subjective Notes Resting in bed No issues Just finished lunch Objective Vitals/I&O Vital Signs Date Time Temp Pulse Resp B/P (MAP) Pulse Ox O2 Delivery O2 Flow Rate FiO2 09/25/17 06:25 98.2 69 16 128/71 (90) 96 Labs Date/Time Source Procedure Growth Status 08/29/17 20:15 Blood Line Aerobic Blood Culture - Final NO GROWTH IN 5 DAYS Complete 08/29/17 20:15 Blood Line Anaerobic Blood Culture - Final NO GROWTH IN 5 DAYS Complete 08/30/17 14:53 Wound Scalp Gram Stain - Final Complete 08/30/17 14:53 Wound Culture - Final S. Aureus Mrsa Complete Cardiovascular: Regular Lungs: Clear Abdomen: Non-distended, Non-tender Extremities: No edema Narrative Exam s/p RIGHT mastectomy----Steri strips in place; DAVE with serosanguineous drainage A/P Assessment and Plan 52 year old female POD3 RIGHT radical mastectomy -Continue routine DAVE care -Pain control -Restart Lovenox today -OOB and mobilize -Regular diet Attending Statement The exam, history, and the medical decision-making described in the above note were completed with the assistance of the mid-level provider. I reviewed and agree with the findings presented. I attest that I had a [id number] encounter with the patient on the same day, and personally performed and documented my assessment and findings in the medical record. Patient s/p right MRM pain controlled AF, VSS incision c/d/i, DAVE SS continue DAVE drain until output less than 30ml/24h for 2 or more days await path will follow Emperatriz Diamond/[employer] Director TEACHER AIDE Sep 25, 2017 14:56 Onel Sewell MD Sep 26, 2017 10:49
[2017-09-25] MEDS: ENOXAPARIN SODIUM 40 MG/0.4 ML SYRINGE SQ SCH (16:00)
[2017-09-25 18:00] VITALS: BP 119/68; PULSE 104; RESP 17; TEMP 98.7; O2SAT 95
[2017-09-25] MEDS: DOCUSATE SODIUM 100 MG CAP PO SCH (20:57)
[2017-09-25] MEDS: REMOVE OLD NICODERM (NICOTINE) PATCH T-DERMAL SCH (20:59)
[2017-09-26] MEDS: ENOXAPARIN SODIUM 40 MG/0.4 ML SYRINGE SQ SCH (04:22)
[2017-09-26 05:52] VITALS: PULSE 82; TEMP 97.8
--- NOTE | 2017-09-26 08:00 | HHI.PYPN ---
Subjective Chief Complaint: Psychosis Remarks Patient seen and examined with nurse. Chart reviewed. Case discussed with nursing staff. No behavioral issues noted. Case discussed in treatment team. Recreation therapist notes that the patient is attending groups. On my examination today, the patient has no complaints of postsurgical pain or any other physical complaints. She denies SI, HI or AVH. She will receive first dose of increased dose of Haldol this morning. She denies side effects from medications. Review of Systems Except as stated in HPI: all other systems reviewed are Neg Mental Status Examination Appearance: Appropriate Consciousness: Alert Orientation: Person, Place, Date/Time Motor Activity: Other (No motor abnormalities noted) Speech: Unremarkable Language: Adequate Fund of Knowledge: Inadequate Attention and Concentration: Adequate Memory: Unremarkable Mood: Appropriate Affect: Blunt Thought Process & Associations: Intact Thought Content: Appropriate Hallucination Type: None Delusion Type: None Suicidal Ideation: No Suicidal Plan: No Suicidal Intention: No Homicidal Ideation: No Homicidal Plan: No Homicidal Intention: No Insight: Poor Judgment: Poor Results Labs Date/Time Source Procedure Growth Status 08/29/17 20:15 Blood Line Aerobic Blood Culture - Final NO GROWTH IN 5 DAYS Complete 08/29/17 20:15 Blood Line Anaerobic Blood Culture - Final NO GROWTH IN 5 DAYS Complete 08/30/17 14:53 Wound Scalp Gram Stain - Final Complete 08/30/17 14:53 Wound Culture - Final S. Aureus Mrsa Complete Labs reviewed Vitals/IOs Vital Signs Date Time Temp Pulse Resp B/P (MAP) Pulse Ox O2 Delivery O2 Flow Rate FiO2 09/26/17 05:52 97.8 82 09/25/17 18:00 17 119/68 (85) 95 Intake and Output 09/26/17 09/26/17 09/27/17 08:00 16:00 00:00 Intake Total 240 ml Output Total 50 ml Balance 190 ml Assessment & Plan Problem List: (1) Schizophrenia ICD Codes: F20.9 - Schizophrenia, unspecified Assessment & Plan Continue Haldol 15 mg twice daily. Continue to monitor on the medical psychiatric unit. Oncology and surgery input noted and appreciated. Continue other medications and care as ordered. Justification for Cont. Inpt. Risk for decompensation in less restrictive environment. Complicating conditions. Discharge Planning Placement versus state hospitalization. Case discussed with counselor. Request HC Surrog/Guard Advoc?: Yes Problem Qualifiers (1) Schizophrenia: Qualified Codes: F20.3 - Undifferentiated schizophrenia Fabrice Bryant MD Sep 26, 2017 08:00
[2017-09-26] MEDS: HALOPERIDOL 5 MG TAB PO SCH ×2 (08:18→20:54)
[2017-09-26] MEDS: ANASTROZOLE 1 MG TAB PO SCH (08:18)
[2017-09-26] MEDS: DOCUSATE SODIUM 100 MG CAP PO SCH ×2 (08:18→20:54)
[2017-09-26] MEDS: BENZTROPINE MESYLATE 1 MG TAB PO SCH ×2 (08:18→20:54)
--- NOTE | 2017-09-26 11:50 | PD.ONC.PN ---
Subjective Subjective Remarks Afebrile overnight. patient resting in bed in nad. denies pain at site of mastectomy. she had bowel movement today. no bleeding. Objective Data Date Time Temp Pulse Resp B/P (MAP) Pulse Ox O2 Delivery O2 Flow Rate FiO2 09/26/17 05:52 97.8 82 09/25/17 18:00 98.7 104 17 119/68 (85) 95 09/26/17 09/26/17 09/26/17 07:00 15:00 23:00 Intake Total 240 ml 480 ml Output Total 50 ml Balance 190 ml 480 ml Administered Medications Medications (Trade) Dose Ordered Sig/Renard Route PRN Reason Start Time Stop Time Status Last Admin Dose Admin Anastrozole (Arimidex) 1 mg DAILY PO 09/23/17 09:00 09/26/17 08:18 Benztropine Mesylate (Cogentin) 0.5 mg Q12HR PO 09/22/17 21:00 09/26/17 08:18 Haloperidol (Haldol) 15 mg HS PO 09/22/17 21:00 09/25/17 20:57 Acetaminophen (Tylenol) 650 mg Q4H PRN PO Temp >101F 09/22/17 15:00 09/25/17 08:09 Acetaminophen/ Hydrocodone Bitart ([place] 5-325 Mg) 1 tab Q4H PRN PO PAIN 3-5 09/22/17 15:15 09/23/17 13:20 Acetaminophen/ Hydrocodone Bitart ([place] 7.5-325 Mg) 1 tab Q4H PRN PO PAIN 6-10 09/22/17 15:15 09/24/17 00:45 Docusate Sodium (Colace) 100 mg BID PO 09/25/17 21:00 09/26/17 08:18 Enoxaparin Sodium (Lovenox Inj) 40 mg Q12H SQ 09/25/17 16:00 09/26/17 04:22 Haloperidol (Haldol) 15 mg DAILY PO 09/26/17 09:00 09/26/17 08:18 Objective Remarks GENERAL: Middle aged female, lying in bed resting. SKIN: Warm and dry. HEAD: Normocephalic. EYES: No injection or drainage. NECK: Supple, trachea midline. BREAST: s/p right mastectomy, incision site clean without bleeding. no hematoma formation. DAVE drain with ss drainage. CARDIOVASCULAR: Regular rate and rhythm RESPIRATORY: Breath sounds equal bilaterally. No accessory muscle use. GASTROINTESTINAL: Abdomen soft, non-tender, nondistended. EXTREMITIES: No cyanosis NEUROLOGICAL: awake and alert. normal speech. Assessment/Plan Problem List: (1) HER2-positive carcinoma of right breast ICD Codes: C50.911 - Malignant neoplasm of unspecified site of right female breast Plan: Standard of care to continue antibody therapy for 52 weeks. Transition care when transferred to [facility] hospital. --s/p right mastectomy (2) Deep venous thrombosis of left upper extremity ICD Codes: I82.622 - Acute embolism and thrombosis of deep veins of left upper extremity Plan: --on Lovenox 80mg SQ q 12 hours Assessment 52y/o female with locally advanced HER2/shirley over expressing ER positive right breast cancer currently admitted for psychosis. 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 h/o Chemotherapy induced anemia. Plan 1. patient without hematoma formation or bleeding, will increase to therapeutic dosing-->Lovenox 80mg SQ q 12 hours. Attending Statement As discussed. Agree with above. Idalia Disla Sep 26, 2017 11:50 Alexa Villareal MD Sep 26, 2017 17:59
[2017-09-26] MEDS: ENOXAPARIN SODIUM 80 MG/0.8 ML SYRINGE SQ SCH (15:38)
--- NOTE | 2017-09-26 16:39 | PD.TTN ---
Patient Problems 1. Discharge planning 2. Medication compliance 3. Knowledge deficit 4. Lack of coping skills Progress Toward Goals Provider Present: Dr. Yen Bryant Provider Input: 09/26/17 Patient's Haldol has been increased. Patient is doing well with her surgery 09/05/2017; patient is pending medical treatment, and dc to the [facility] 09/01/2017; Patient is pending medical treatment and [facility] 08/28/2017: Patient is pending [facility], breast removal surgery 08/23/2017: Patient has one remaining Chemo treatment and within three weeks she will have surgery 08/21/2017; Patient is a state wait, still disorganized, requires stable appropriate dc placement for medical and mental health purpose. 08/16/2017;Patient is a state wait, has one more treatment and will be able to be transferred to [facility] 08/07/2017; patient is a state wait or will require a structure discharge environment 07/24/2017; per Dr. Enamorado, patient continues to display inappropriate behavior, requesting redirection with thoughts/mood. 07/19/17 remains in need for stabilization and is lacking insight and remains at high risk for decompensation 07/17/17 patient is receiving chemo and presenting different than last hospitalization which she was manic, now she is withdrawn and limited in talking and interacting 07/14/17 patient came from independent living at [facility] and appears not being able to return there - she can benefit from an [facility] placement Nurse(s) Present: ARIEL Flower Nurse(s) Input: 09/26/17 Patient is doing well. Per nurse, patient starts her chemo threatments on . Patient is cooperative and takes her medication 09/05/2017; patient is eating meals, taking her meds 09/01/2017; patient is positive for MRSA, taking her meds, and eating meals 08/28/2017: Patient is compliant with meals, and treatment 08/23/2017; patient is compliant with medication, meals requires some motivation and coaching 08/21/2017; patient is eating and taking her medication, needs prompting and encouragement 08/16/2017: patient is eating taking her medication, has no motivation and isolate most of the day. Patient is eating and very redirectable Psychiatric Counselors Present: Fernanda Garrett [facility] Psych Therapist Input: 09/26/17 Patient presents limited in conversation. Patient does have difficulty hearing. Patient made good eye contact. Patient denies suicidal and homicidal ideation. Patient is medication compliant, eating well. Patient reports feeling well after her mastecomy. 09/05/2017; counselor will update patient's State hospital status 09/01/2017; patient is encouraged with treatment, and groups 08/28/2017: Patient is encouraged with meals, treatment and groups 08/23/2017; counselor will call previous facilities to inquire if they would accept patient after surgery is complete 08/21/2017: counselor will encourage patient with activities 08/16/2017; patient is enouraged with meals, mood, and group participation 08/07/2017; patient is encouraged with meals, mood and medication 07/24/2017; patient is encouraged with mood, meals and medication compliance 07/19/17 still erratic, mood unstable, disorganized thoughts continue , needs at least FIFI if not more care 07/17/17 will work on SNF facilities and refer patient today, she remains uncooperative with this therapist 07/14/17 patient refused to talk to this counselor twice yesterday, pretending to sleep she is reported by nurses to remain in bed without interacting and irritable Group Spec/RT/OT/DONATO Present: Onel Devi, OT Group Spec/RT/OT/DONATO Input: 09/25/17 Patient does attend groups and appears to enjoy them. 09/05/2017: patient has MRSA and unable to attend group 09/01/2017; per to MRSA patient had been attending groups now she is unable 08/28/2017: Patient attends select groups, with little participation 08/23/2017: Patient has been attending groups; however she is easily overwhelmed; complete simple task 08/16/2017; patient will not participate with groups or activities 08/07/2017; patient is unable to participate with groups or activities 07/24/2017; patient continues to be unable to participate with groups and activities 07/19/17 cannot tolerate groups and non reality based thoughts 07/17/17 does not attend group and does not tolerate 07/14/17 patient does not attend groups and does not tolerate groups Documentation Scribe: Shell Barrett [facility] Sep 26, 2017 16:39
[2017-09-26 18:26] VITALS: BP 109/57; PULSE 79; RESP 18; TEMP 97.9; O2SAT 98
[2017-09-26] MEDS: REMOVE OLD NICODERM (NICOTINE) PATCH T-DERMAL SCH (20:54)
[2017-09-27] MEDS: ENOXAPARIN SODIUM 80 MG/0.8 ML SYRINGE SQ SCH ×2 (04:33→16:00)
[2017-09-27 06:00] VITALS: BP 108/68; PULSE 80; RESP 16; TEMP 98; O2SAT 95
[2017-09-27] MEDS: ANASTROZOLE 1 MG TAB PO SCH (08:46)
[2017-09-27] MEDS: BENZTROPINE MESYLATE 1 MG TAB PO SCH ×2 (08:46→21:02)
[2017-09-27] MEDS: HALOPERIDOL 5 MG TAB PO SCH ×2 (08:46→21:04)
[2017-09-27] MEDS: DOCUSATE SODIUM 100 MG CAP PO SCH ×2 (08:47→21:03)
--- NOTE | 2017-09-27 08:48 | HHI.PYPN ---
Subjective Chief Complaint: Psychosis Remarks Patient seen and examined with nurse. Chart reviewed. Case discussed with nursing staff. No behavioral issues noted overnight. On my examination today, the patient is in good spirits. Postoperative pain remains well controlled. She is looking forward to attending the movie group today. She asks appropriate questions regarding disposition planning. Denies SI, HI or AVH. Denies side effects from medications and is pleased with increased dose of Haldol. No physical complaints. Review of Systems Except as stated in HPI: all other systems reviewed are Neg Mental Status Examination Appearance: Appropriate Consciousness: Alert Orientation: Person, Place, Date/Time Motor Activity: Other (No abnormal motor movements noted) Speech: Unremarkable Language: Adequate Fund of Knowledge: Inadequate Attention and Concentration: Adequate Memory: Unremarkable Mood: Appropriate Affect: Blunt Thought Process & Associations: Intact Thought Content: Appropriate Hallucination Type: None (Denies AVH) Delusion Type: None Suicidal Ideation: No Suicidal Plan: No Suicidal Intention: No Homicidal Ideation: No Homicidal Plan: No Homicidal Intention: No Insight: Poor Judgment: Poor Results Labs Date/Time Source Procedure Growth Status 08/29/17 20:15 Blood Line Aerobic Blood Culture - Final NO GROWTH IN 5 DAYS Complete 08/29/17 20:15 Blood Line Anaerobic Blood Culture - Final NO GROWTH IN 5 DAYS Complete 08/30/17 14:53 Wound Scalp Gram Stain - Final Complete 08/30/17 14:53 Wound Culture - Final S. Aureus Mrsa Complete Labs reviewed Vitals/IOs Vital Signs Date Time Temp Pulse Resp B/P (MAP) Pulse Ox O2 Delivery O2 Flow Rate FiO2 09/27/17 06:00 98.0 80 16 108/68 (81) 95 Intake and Output 09/27/17 09/27/17 09/28/17 08:00 16:00 00:00 Intake Total 120 ml Output Total 45 ml Balance 75 ml Assessment & Plan Problem List: (1) Schizophrenia ICD Codes: F20.9 - Schizophrenia, unspecified Assessment & Plan Continue Haldol as ordered. Surgery input noted and appreciated. Oncology input appreciated. Continue to monitor on medical psychiatric unit. Continue other medications and care as ordered. Justification for Cont. Inpt. Risk for decompensation in less restrictive environment. Discharge Planning Counselor is working on placement. Request HC Surrog/Guard Advoc?: Yes Problem Qualifiers (1) Schizophrenia: Qualified Codes: F20.3 - Undifferentiated schizophrenia Fabrice Bryant MD Sep 27, 2017 08:48
--- NOTE | 2017-09-27 11:34 | HHI.PR ---
Subjective Subjective Notes Resting in bed No issues Pain controlled Objective Vitals/I&O Vital Signs Date Time Temp Pulse Resp B/P (MAP) Pulse Ox O2 Delivery O2 Flow Rate FiO2 09/27/17 06:00 98.0 80 16 108/68 (81) 95 Labs Date/Time Source Procedure Growth Status 08/29/17 20:15 Blood Line Aerobic Blood Culture - Final NO GROWTH IN 5 DAYS Complete 08/29/17 20:15 Blood Line Anaerobic Blood Culture - Final NO GROWTH IN 5 DAYS Complete 08/30/17 14:53 Wound Scalp Gram Stain - Final Complete 08/30/17 14:53 Wound Culture - Final S. Aureus Mrsa Complete Cardiovascular: Regular Lungs: Clear Abdomen: Non-distended, Non-tender Extremities: No edema Narrative Exam s/p RIGHT mastectomy----Steri strips in place; DAVE with serosanguineous drainage A/P Assessment and Plan 52 year old female POD5 RIGHT radical mastectomy -Continue routine DAVE care -Pain control -Lovenox -OOB and mobilize -Regular diet Attending Statement The exam, history, and the medical decision-making described in the above note were completed with the assistance of the mid-level provider. I reviewed and agree with the findings presented. I attest that I had a [id number] encounter with the patient on the same day, and personally performed and documented my assessment and findings in the medical record. patient feels well, pain ok, no new issues keep drain for now will follow along Emperatriz Diamond/Ultimate [employer]ops Referee [employer] Sep 27, 2017 11:34 Onel Sewell MD Sep 28, 2017 13:38
[2017-09-27 18:00] VITALS: BP 118/76; PULSE 80; RESP 16; TEMP 97.9; O2SAT 98
[2017-09-27] MEDS: REMOVE OLD NICODERM (NICOTINE) PATCH T-DERMAL SCH (21:00)
[2017-09-28] MEDS: ENOXAPARIN SODIUM 80 MG/0.8 ML SYRINGE SQ SCH ×2 (03:58→18:05)
[2017-09-28 06:24] VITALS: BP 134/60; PULSE 60; RESP 16; TEMP 97.4; O2SAT 92
--- NOTE | 2017-09-28 07:57 | HHI.PYPN ---
Subjective Chief Complaint: Psychosis Remarks Patient seen and examined. Chart reviewed. Case discussed with nursing staff. No behavioral issues noted overnight. On my examination today, the patient reports mood is "okay." She denies any AVH. No paranoia. Denies side effects from medications. No physical complaints except the patient complains of feeling somewhat cold. The patient's room is in fact quite chilly, and I have asked the nurse if the patient could be moved to a warmer room if her room cannot be made warmer. I did endeavor to reach out to patient's daughter/GA, Kate Pelletier to discuss plan of care going forward and dispo planning. I left a generic voicemail requesting a call back. Review of Systems Except as stated in HPI: all other systems reviewed are Neg Mental Status Examination Appearance: Appropriate Consciousness: Alert Orientation: Person, Place, Date/Time Motor Activity: Other (No motor abnormalities noted) Speech: Unremarkable Language: Adequate Fund of Knowledge: Inadequate Attention and Concentration: Adequate Memory: Unremarkable Mood: Appropriate Affect: Blunt (Remains a little blunted) Thought Process & Associations: Intact Thought Content: Appropriate Hallucination Type: None Delusion Type: None Suicidal Ideation: No Suicidal Plan: No Suicidal Intention: No Homicidal Ideation: No Homicidal Plan: No Homicidal Intention: No Insight: Poor Judgment: Poor Results Labs Date/Time Source Procedure Growth Status 08/29/17 20:15 Blood Line Aerobic Blood Culture - Final NO GROWTH IN 5 DAYS Complete 08/29/17 20:15 Blood Line Anaerobic Blood Culture - Final NO GROWTH IN 5 DAYS Complete 08/30/17 14:53 Wound Scalp Gram Stain - Final Complete 08/30/17 14:53 Wound Culture - Final S. Aureus Mrsa Complete Vitals/IOs Vital Signs Date Time Temp Pulse Resp B/P (MAP) Pulse Ox O2 Delivery O2 Flow Rate FiO2 09/28/17 06:24 97.4 60 16 134/60 (61) 92 Assessment & Plan Problem List: (1) Schizophrenia ICD Codes: F20.9 - Schizophrenia, unspecified Assessment & Plan Continue Haldol and Cogentin as ordered. Patient is doing well from a psychiatric standpoint. I will check an updated set of basic laboratories in the morning. Land Development Manager input noted and appreciated. Continue other medications and care as ordered. Justification for Cont. Inpt. Risk for decompensation in less restrictive environment. Discharge Planning Placement Request HC Surrog/Guard Advoc?: Yes Problem Qualifiers (1) Schizophrenia: Qualified Codes: F20.3 - Undifferentiated schizophrenia Fabrice Bryant MD Sep 28, 2017 07:57
[2017-09-28] MEDS: BENZTROPINE MESYLATE 1 MG TAB PO SCH ×2 (10:36→21:00)
[2017-09-28] MEDS: DOCUSATE SODIUM 100 MG CAP PO SCH ×2 (10:36→21:00)
[2017-09-28] MEDS: HALOPERIDOL 5 MG TAB PO SCH ×2 (10:37→21:00)
[2017-09-28] MEDS: ANASTROZOLE 1 MG TAB PO SCH (10:44)
--- NOTE | 2017-09-28 13:39 | PD.ONC.PN ---
Subjective Subjective Remarks Afebrile overnight. Patient states she feels fine. denies nausea or vomiting. denies pain at mastectomy site. denies hot flashes. Objective Data Date Time Temp Pulse Resp B/P (MAP) Pulse Ox O2 Delivery O2 Flow Rate FiO2 09/28/17 06:24 97.4 60 16 134/60 (84) 92 09/27/17 18:00 97.9 80 16 118/76 (90) 98 09/28/17 09/28/17 09/28/17 07:00 15:00 23:00 Intake Total 3600 ml Balance 3600 ml Administered Medications Medications (Trade) Dose Ordered Sig/Renard Route PRN Reason Start Time Stop Time Status Last Admin Dose Admin Anastrozole (Arimidex) 1 mg DAILY PO 09/23/17 09:00 09/28/17 10:44 Benztropine Mesylate (Cogentin) 0.5 mg Q12HR PO 09/22/17 21:00 09/28/17 10:36 Haloperidol (Haldol) 15 mg HS PO 09/22/17 21:00 09/27/17 21:04 Acetaminophen (Tylenol) 650 mg Q4H PRN PO Temp >101F 09/22/17 15:00 09/25/17 08:09 Acetaminophen/ Hydrocodone Bitart ([place] 5-325 Mg) 1 tab Q4H PRN PO PAIN 3-5 09/22/17 15:15 09/23/17 13:20 Acetaminophen/ Hydrocodone Bitart ([place] 7.5-325 Mg) 1 tab Q4H PRN PO PAIN 6-10 09/22/17 15:15 09/24/17 00:45 Docusate Sodium (Colace) 100 mg BID PO 09/25/17 21:00 09/28/17 10:36 Haloperidol (Haldol) 15 mg DAILY PO 09/26/17 09:00 09/28/17 10:37 Enoxaparin Sodium (Lovenox Inj) 80 mg Q12H SQ 09/26/17 16:00 09/28/17 03:58 Objective Remarks GENERAL: Middle aged female, resting in room in nad. SKIN: Warm and dry. port un-accessed, left chest wall. HEAD: Normocephalic. EYES: No injection or drainage. NECK: Supple, trachea midline. BREAST: s/p right mastectomy, no erythema or bleeding at incision site. CARDIOVASCULAR: Regular rate and rhythm RESPIRATORY: Breath sounds equal bilaterally. No accessory muscle use. GASTROINTESTINAL: Abdomen soft, non-tender, nondistended. EXTREMITIES: No cyanosis NEUROLOGICAL: awake, alert. normal speech. Assessment/Plan Problem List: (1) HER2-positive carcinoma of right breast ICD Codes: C50.911 - Malignant neoplasm of unspecified site of right female breast Plan: Standard of care to continue antibody therapy for 52 weeks. Transition care when transferred to [facility]. --s/p right mastectomy (2) Deep venous thrombosis of left upper extremity ICD Codes: I82.622 - Acute embolism and thrombosis of deep veins of left upper extremity Plan: --on Lovenox 80mg SQ q 12 hours Assessment 52y/o female with locally advanced HER2/shirley over expressing ER positive right breast cancer currently admitted for psychosis. 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 h/o Chemotherapy induced anemia. Plan 1. continue Lovenox, start coumadin bridge 2. check CBC, BMP, INR today 3. plan to give herceptin/perjeta tomorrow. Attending Statement The exam, history, and the medical decision-making described in the above note were completed with the assistance of the mid-level provider. I reviewed and agree with the findings presented. I attest that I had a [id number] encounter with the patient on the same day, and personally performed and documented my assessment and findings in the medical record. Drain still in place. No sign of infection. Discussed w/ Dr. Sewell regarding anticoagulation with Coumadin. Ok to start Coumadin, bridge with Lovenox. Discussed with patient final pathology, she has high risk disease with significant residual disease after definitive surgery. Margins negative. Lymph node positive. Recommend she continue Herceptin/pertuzumab Q3 weeks an Arimidex daily. Next dose antibody tomorrow. L arm swelling mild. Idalia Disla Sep 28, 2017 13:39 Alexa Villareal MD Sep 28, 2017 17:15
[2017-09-28 17:50] LABS: INTERNATIONAL NORMALIZED RATIO 1.1 RATIO; PROTHROMBIN TIME - PATIENT 10.8 SEC (9.8-11.6)
[2017-09-28] MEDS: WARFARIN SOD 2 MG TAB PO SCH (18:08)
[2017-09-28 18:33] VITALS: BP 119/61; PULSE 101; RESP 18; TEMP 97.5; O2SAT 97
[2017-09-28] MEDS: REMOVE OLD NICODERM (NICOTINE) PATCH T-DERMAL SCH (21:00)
[2017-09-29] MEDS: ACETAMINOPHEN/HYDROcodone 325 MG/5 MG TAB PO PRN (01:58)
[2017-09-29] MEDS: ENOXAPARIN SODIUM 80 MG/0.8 ML SYRINGE SQ SCH ×2 (05:23→19:44)
[2017-09-29 07:00] VITALS: BP 127/79; PULSE 71; RESP 18; TEMP 97.4; O2SAT 95
--- NOTE | 2017-09-29 09:38 | PD.TTN ---
Patient Problems 1. Discharge planning 2. Medication compliance 3. Knowledge deficit 4. Lack of coping skills Progress Toward Goals Provider Present: Dr. Yen Bryant Provider Input: 09/29/2017; patient is stable with medication levels, placement verse State state option 09/26/17 Patient's Haldol has been increased. Patient is doing well with her surgery 09/05/2017; patient is pending medical treatment, and dc to the [facility] 09/01/2017; Patient is pending medical treatment and [facility] 08/28/2017: Patient is pending [facility], breast removal surgery 08/23/2017: Patient has one remaining Chemo treatment and within three weeks she will have surgery 08/21/2017; Patient is a state wait, still disorganized, requires stable appropriate dc placement for medical and mental health purpose. 08/16/2017;Patient is a state wait, has one more treatment and will be able to be transferred to [facility] 08/07/2017; patient is a state wait or will require a structure discharge environment 07/24/2017; per Dr. Enamorado, patient continues to display inappropriate behavior, requesting redirection with thoughts/mood. 07/19/17 remains in need for stabilization and is lacking insight and remains at high risk for decompensation 07/17/17 patient is receiving chemo and presenting different than last hospitalization which she was manic, now she is withdrawn and limited in talking and interacting 07/14/17 patient came from independent living at [facility] and appears not being able to return there - she can benefit from an FIFI placement Nurse(s) Present: ARIEL Flower Nurse(s) Input: 09/29/2017; patient is eating meals, taking medication and visible on the unit 09/26/17 Patient is doing well. Per nurse, patient starts her chemo threatments on . Patient is cooperative and takes her medication 09/05/2017; patient is eating meals, taking her meds 09/01/2017; patient is positive for MRSA, taking her meds, and eating meals 08/28/2017: Patient is compliant with meals, and treatment 08/23/2017; patient is compliant with medication, meals requires some motivation and coaching 08/21/2017; patient is eating and taking her medication, needs prompting and encouragement 08/16/2017: patient is eating taking her medication, has no motivation and isolate most of the day. Patient is eating and very redirectable Psychiatric Counselors Present: Fernanda Garrett [facility] Psych Therapist Input: 09/29/2017; counselor will continue exploring placement and assist patient with verification of income 09/26/17 Patient presents limited in conversation. Patient does have difficulty hearing. Patient made good eye contact. Patient denies suicidal and homicidal ideation. Patient is medication compliant, eating well. Patient reports feeling well after her mastecomy. 09/05/2017; counselor will update patient's State hospital status 09/01/2017; patient is encouraged with treatment, and groups 08/28/2017: Patient is encouraged with meals, treatment and groups 08/23/2017; counselor will call previous facilities to inquire if they would accept patient after surgery is complete 08/21/2017: counselor will encourage patient with activities 08/16/2017; patient is enouraged with meals, mood, and group participation 08/07/2017; patient is encouraged with meals, mood and medication 07/24/2017; patient is encouraged with mood, meals and medication compliance 07/19/17 still erratic, mood unstable, disorganized thoughts continue , needs at least SKILLED NURSING if not more care 07/17/17 will work on SNF facilities and refer patient today, she remains uncooperative with this therapist 07/14/17 patient refused to talk to this counselor twice yesterday, pretending to sleep she is reported by nurses to remain in bed without interacting and irritable Group Spec/RT/OT/DONATO Present: Onel Devi OT Group Spec/RT/OT/DONATO Input: 09/29/2017; patient has been unable to attend groups due to medical 09/25/17 Patient does attend groups and appears to enjoy them. 09/05/2017: patient has MRSA and unable to attend group 09/01/2017; per to MRSA patient had been attending groups now she is unable 08/28/2017: Patient attends select groups, with little participation 08/23/2017: Patient has been attending groups; however she is easily overwhelmed; complete simple task 08/16/2017; patient will not participate with groups or activities 08/07/2017; patient is unable to participate with groups or activities 07/24/2017; patient continues to be unable to participate with groups and activities 07/19/17 cannot tolerate groups and non reality based thoughts 07/17/17 does not attend group and does not tolerate 07/14/17 patient does not attend groups and does not tolerate groups Documentation Scribe: Fernanda Dupree [facility] Sep 29, 2017 09:38
[2017-09-29 11:05] LABS: BASOPHIL % 0.4 % (0.0-2.0); EOSINOPHIL # 0.3 TH/MM3 (0-0.4); EOSINOPHIL % 3.8 % (0.0-4.0); HEMATOCRIT 37.2 % (35.0-46.0); HEMOGLOBIN 12.5 GM/DL (11.6-15.3); LYMPH % 23.4 % (9.0-44.0); LYMPHOCYTE # 1.8 TH/MM3 (1.0-4.8); MEAN CELL VOLUME 92.1 FL (80.0-100.0); MEAN CORPUSCULAR HEMOGLOBIN 31.1 PG (27.0-34.0); MEAN CORPUSCULAR HGB CONC 33.7 % (32.0-36.0); MEAN PLATELET VOLUME 8.6 FL (7.0-11.0); MONO % 5.7 % (0.0-8.0); MONOCYTE # 0.4 TH/MM3 (0-0.9); NEUT % 66.7 % (16.0-70.0); PLATELET COUNT 211 TH/MM3 (150-450); RED BLOOD COUNT 4.04 MIL/MM3 (4.00-5.30); RED CELL DISTRIBUTION WIDTH 13.2 % (11.6-17.2); WHITE BLOOD COUNT 7.5 TH/MM3 (4.0-11.0)
[2017-09-29 11:25] LABS: PROTHROMBIN TIME - PATIENT 10.1 SEC (9.8-11.6)
[2017-09-29 11:27] LABS: ALBUMIN 3.3 GM/DL (3.4-5.0); ALT (GPT) 33 U/L (10-53); AST (GOT) 16 U/L (15-37); BICARBONATE 31.2 MEQ/L (21.0-32.0); BLOOD UREA NITROGEN 13 MG/DL (7-18); CALCIUM 8.8 MG/DL (8.5-10.1); CHLORIDE 106 MEQ/L (98-107); CREATININE 0.48 MG/DL (0.50-1.00); GLOMERULAR FILTRATION RATE 136 ML/MIN (>89); GLUCOSE,RANDOM 111 MG/DL (74-106); SODIUM (NA) 143 MEQ/L (136-145)
[2017-09-29 11:29] LABS: ALKALINE PHOSPHATASE 65 U/L (45-117); TOTAL BILIRUBIN ADULT 0.6 MG/DL (0.2-1.0); TOTAL PROTEIN 6.6 GM/DL (6.4-8.2)
[2017-09-29] MEDS: BENZTROPINE MESYLATE 1 MG TAB PO SCH ×2 (12:23→20:46)
[2017-09-29] MEDS: HALOPERIDOL 5 MG TAB PO SCH ×2 (12:23→20:46)
[2017-09-29] MEDS: ANASTROZOLE 1 MG TAB PO SCH (12:23)
[2017-09-29] MEDS: DOCUSATE SODIUM 100 MG CAP PO SCH ×2 (12:25→20:46)
--- NOTE | 2017-09-29 13:15 | HHI.PYPN ---
Subjective Chief Complaint: Psychosis Remarks Patient seen and examined with nurse. Chart reviewed. Case discussed with nursing staff. No behavioral issues noted overnight. Case discussed in treatment team. Counselor continues to look for an FIFI for the patient. On my examination today, the patient is in good spirits. She is appropriate and relevant in conversation. She worries that her DAVE drain is leaking, but neither I nor nurse can see any evidence of this. Patient does note that sensation is returning to surgical site, and she may be experiencing a sensation of moisture in area that was previously numb. Nurse will have surgical team assess when they round. No psychotic symptoms. No side effects from medications. No physical complaints. Review of Systems Except as stated in HPI: all other systems reviewed are Neg Mental Status Examination Appearance: Appropriate Consciousness: Alert Orientation: Person, Place, Date/Time Motor Activity: Other (No motor abnormalities appreciated) Speech: Unremarkable Language: Adequate Fund of Knowledge: Inadequate Attention and Concentration: Adequate Memory: Unremarkable Mood: Appropriate Affect: Blunt Thought Process & Associations: Intact Thought Content: Appropriate Hallucination Type: None Delusion Type: None Suicidal Ideation: No Suicidal Plan: No Suicidal Intention: No Homicidal Ideation: No Homicidal Plan: No Homicidal Intention: No Insight: Poor Judgment: Poor Results Labs Test 09/28/17 17:17 09/29/17 10:45 Prothrombin Time 10.8 SEC 10.1 SEC Prothromb Time International Ratio 1.1 RATIO 1.0 RATIO Activated Partial Thromboplast Time 23.9 SEC White Blood Count 7.5 TH/MM3 Red Blood Count 4.04 MIL/MM3 Hemoglobin 12.5 GM/DL Hematocrit 37.2 % Mean Corpuscular Volume 92.1 FL Mean Corpuscular Hemoglobin 31.1 PG Mean Corpuscular Hemoglobin Concent 33.7 % Red Cell Distribution Width 13.2 % Platelet Count 211 TH/MM3 Mean Platelet Volume 8.6 FL Neutrophils (%) (Auto) 66.7 % Lymphocytes (%) (Auto) 23.4 % Monocytes (%) (Auto) 5.7 % Eosinophils (%) (Auto) 3.8 % Basophils (%) (Auto) 0.4 % Neutrophils # (Auto) 5.0 TH/MM3 Lymphocytes # (Auto) 1.8 TH/MM3 Monocytes # (Auto) 0.4 TH/MM3 Eosinophils # (Auto) 0.3 TH/MM3 Basophils # (Auto) 0.0 TH/MM3 CBC Comment DIFF FINAL Differential Comment Blood Urea Nitrogen 13 MG/DL Creatinine 0.48 MG/DL Random Glucose 111 MG/DL Total Protein 6.6 GM/DL Albumin 3.3 GM/DL Calcium Level 8.8 MG/DL Alkaline Phosphatase 65 U/L Aspartate Amino Transf (AST/SGOT) 16 U/L Alanine Aminotransferase (ALT/SGPT) 33 U/L Total Bilirubin 0.6 MG/DL Sodium Level 143 MEQ/L Potassium Level 3.7 MEQ/L Chloride Level 106 MEQ/L Carbon Dioxide Level 31.2 MEQ/L Anion Gap 6 MEQ/L Estimat Glomerular Filtration Rate 136 ML/MIN Date/Time Source Procedure Growth Status 08/29/17 20:15 Blood Line Aerobic Blood Culture - Final NO GROWTH IN 5 DAYS Complete 08/29/17 20:15 Blood Line Anaerobic Blood Culture - Final NO GROWTH IN 5 DAYS Complete 08/30/17 14:53 Wound Scalp Gram Stain - Final Complete 08/30/17 14:53 Wound Culture - Final S. Aureus Mrsa Complete Labs were reviewed Vitals/IOs Vital Signs Date Time Temp Pulse Resp B/P (MAP) Pulse Ox O2 Delivery O2 Flow Rate FiO2 09/29/17 07:00 97.4 71 18 127/79 (95) 95 Intake and Output 09/29/17 09/29/17 09/29/17 07:59 15:59 23:59 Output Total 30 ml Balance -30 ml Assessment & Plan Problem List: (1) Schizophrenia ICD Codes: F20.9 - Schizophrenia, unspecified Assessment & Plan Continue Haldol and Cogentin as ordered. Lead Level Designer input noted and appreciated. Continue to monitor on the inpatient unit. Continue other medications and care as ordered. Justification for Cont. Inpt. Risk for decompensation in less restrictive environment. Complicating conditions. Discharge Planning Placement. Request HC Surrog/Guard Advoc?: Yes Problem Qualifiers (1) Schizophrenia: Qualified Codes: F20.3 - Undifferentiated schizophrenia Fabrice Bryant MD Sep 29, 2017 13:15
--- NOTE | 2017-09-29 13:51 | PD.ONC.PN ---
Subjective Subjective Remarks Afebrile overnight. Patient resting in room. states her DAVE drain has been leaking. otherwise no problems post-surgically. no bleeding. Objective Data Date Time Temp Pulse Resp B/P (MAP) Pulse Ox O2 Delivery O2 Flow Rate FiO2 09/29/17 07:00 97.4 71 18 127/79 (95) 95 09/28/17 18:33 97.5 101 18 119/61 (80) 97 09/29/17 09/29/17 09/29/17 07:00 15:00 23:00 Intake Total 1200 ml Output Total 30 ml Balance -30 ml 1200 ml Result Diagram: 09/29/17 1045 09/29/17 1045 Laboratory Results Laboratory Tests Test 09/28/17 17:17 09/29/17 10:45 Prothrombin Time 10.8 SEC 10.1 SEC Prothromb Time International Ratio 1.1 RATIO 1.0 RATIO Activated Partial Thromboplast Time 23.9 SEC White Blood Count 7.5 TH/MM3 Red Blood Count 4.04 MIL/MM3 Hemoglobin 12.5 GM/DL Hematocrit 37.2 % Mean Corpuscular Volume 92.1 FL Mean Corpuscular Hemoglobin 31.1 PG Mean Corpuscular Hemoglobin Concent 33.7 % Red Cell Distribution Width 13.2 % Platelet Count 211 TH/MM3 Mean Platelet Volume 8.6 FL Neutrophils (%) (Auto) 66.7 % Lymphocytes (%) (Auto) 23.4 % Monocytes (%) (Auto) 5.7 % Eosinophils (%) (Auto) 3.8 % Basophils (%) (Auto) 0.4 % Neutrophils # (Auto) 5.0 TH/MM3 Lymphocytes # (Auto) 1.8 TH/MM3 Monocytes # (Auto) 0.4 TH/MM3 Eosinophils # (Auto) 0.3 TH/MM3 Basophils # (Auto) 0.0 TH/MM3 CBC Comment DIFF FINAL Differential Comment Blood Urea Nitrogen 13 MG/DL Creatinine 0.48 MG/DL Random Glucose 111 MG/DL Total Protein 6.6 GM/DL Albumin 3.3 GM/DL Calcium Level 8.8 MG/DL Alkaline Phosphatase 65 U/L Aspartate Amino Transf (AST/SGOT) 16 U/L Alanine Aminotransferase (ALT/SGPT) 33 U/L Total Bilirubin 0.6 MG/DL Sodium Level 143 MEQ/L Potassium Level 3.7 MEQ/L Chloride Level 106 MEQ/L Carbon Dioxide Level 31.2 MEQ/L Anion Gap 6 MEQ/L Estimat Glomerular Filtration Rate 136 ML/MIN Administered Medications Medications (Trade) Dose Ordered Sig/Renard Route PRN Reason Start Time Stop Time Status Last Admin Dose Admin Anastrozole (Arimidex) 1 mg DAILY PO 09/23/17 09:00 09/29/17 12:23 Benztropine Mesylate (Cogentin) 0.5 mg Q12HR PO 09/22/17 21:00 09/29/17 12:23 Haloperidol (Haldol) 15 mg HS PO 09/22/17 21:00 09/28/17 21:00 Acetaminophen (Tylenol) 650 mg Q4H PRN PO Temp >101F 09/22/17 15:00 09/25/17 08:09 Acetaminophen/ Hydrocodone Bitart ([place] 5-325 Mg) 1 tab Q4H PRN PO PAIN 3-5 09/22/17 15:15 09/29/17 01:58 Acetaminophen/ Hydrocodone Bitart ([place] 7.5-325 Mg) 1 tab Q4H PRN PO PAIN 6-10 09/22/17 15:15 09/24/17 00:45 Docusate Sodium (Colace) 100 mg BID PO 09/25/17 21:00 09/29/17 12:25 Haloperidol (Haldol) 15 mg DAILY PO 09/26/17 09:00 09/29/17 12:23 Enoxaparin Sodium (Lovenox Inj) 80 mg Q12H SQ 09/26/17 16:00 09/29/17 05:23 Warfarin Sodium (Coumadin) 2 mg DAILY@16 PO 09/28/17 18:08 09/28/17 18:08 Objective Remarks GENERAL: Middle aged female, sitting up in chair watching TV in [facility]. SKIN: Warm and dry. port accessed, left chest wall. HEAD: Normocephalic. EYES: No injection or drainage. NECK: Supple, trachea midline. BREAST: s/p right-sided mastectomy, incision site clean without bleeding. some mild skin irritation from tape holding DAVE drain to body seen on abdomen. CARDIOVASCULAR: Regular rate and rhythm RESPIRATORY: Breath sounds equal bilaterally. No accessory muscle use. GASTROINTESTINAL: Abdomen soft, non-tender, nondistended. EXTREMITIES: No cyanosis NEUROLOGICAL: awake, alert. normal speech. Assessment/Plan Problem List: (1) HER2-positive carcinoma of right breast ICD Codes: C50.911 - Malignant neoplasm of unspecified site of right female breast Plan: Standard of care to continue antibody therapy (herceptin + perjeta) for a total of 52 weeks. Transition care if transferred to [facility]. --s/p right mastectomy (2) Deep venous thrombosis of left upper extremity ICD Codes: I82.622 - Acute embolism and thrombosis of deep veins of left upper extremity Plan: --on Lovenox 80mg SQ q 12 hours + coumadin, monitor INR Assessment 52y/o female with locally advanced HER2/shirley over expressing ER positive right breast cancer currently admitted for psychosis. 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 h/o Chemotherapy induced anemia. Plan 1. continue Lovenox-->coumadin bridge 2. herceptin/perjeta today 3. monitor CBC, INR, renal function 4. defer to surgery for management of DAVE drain Attending Statement The exam, history, and the medical decision-making described in the above note were completed with the assistance of the mid-level provider. I reviewed and agree with the findings presented. I attest that I had a [id number] encounter with the patient on the same day, and personally performed and documented my assessment and findings in the medical record. PT seen and examined. Questions regarding reconstruction. Denies any pain but drain still draining serosangenous fluid. Tolerating Herceptin and Pertuzumab. Reviewed pathology with residual disease and LN positive. Continue AI and anti Her 2 therapy. Follow until transfer care to [facility]. Idalia Disla Sep 29, 2017 13:51 Alexa Villareal MD Sep 29, 2017 18:56
[2017-09-29] MEDS ORDERED: LORazepam 0.5 MG TAB PO ONE (14:00)
[2017-09-29] MEDS ORDERED: PERTUZUMAB IV ONE (15:00)
[2017-09-29] MEDS ORDERED: SODIUM CHLOR 0.9% IV ONE ×2 (15:00→16:00)
[2017-09-29] MEDS ORDERED: SODIUM CHLOR 0.9% 250 ML INJ 250 ML IV SCH (15:00)
--- NOTE | 2017-09-29 15:26 | HHI.PR ---
cc: Onel eSwell MD Subjective Subjective Notes Up to chair REGLA Friedman at bedside Happy because Dr. Villareal brought some chocolates this morning which is her favorite food Objective Vitals/I&O Vital Signs Date Time Temp Pulse Resp B/P (MAP) Pulse Ox O2 Delivery O2 Flow Rate FiO2 09/29/17 07:00 97.4 71 18 127/79 (95) 95 Labs Laboratory Tests Test 09/28/17 17:17 09/29/17 10:45 Prothrombin Time 10.8 10.1 Prothromb Time International Ratio 1.1 1.0 Activated Partial Thromboplast Time 23.9 White Blood Count 7.5 Red Blood Count 4.04 Hemoglobin 12.5 Hematocrit 37.2 Mean Corpuscular Volume 92.1 Mean Corpuscular Hemoglobin 31.1 Mean Corpuscular Hemoglobin Concent 33.7 Red Cell Distribution Width 13.2 Platelet Count 211 Mean Platelet Volume 8.6 Neutrophils (%) (Auto) 66.7 Lymphocytes (%) (Auto) 23.4 Monocytes (%) (Auto) 5.7 Eosinophils (%) (Auto) 3.8 Basophils (%) (Auto) 0.4 Neutrophils # (Auto) 5.0 Lymphocytes # (Auto) 1.8 Monocytes # (Auto) 0.4 Eosinophils # (Auto) 0.3 Basophils # (Auto) 0.0 CBC Comment DIFF FINAL Differential Comment Blood Urea Nitrogen 13 Creatinine 0.48 Random Glucose 111 Total Protein 6.6 Albumin 3.3 Calcium Level 8.8 Alkaline Phosphatase 65 Aspartate Amino Transf (AST/SGOT) 16 Alanine Aminotransferase (ALT/SGPT) 33 Total Bilirubin 0.6 Sodium Level 143 Potassium Level 3.7 Chloride Level 106 Carbon Dioxide Level 31.2 Anion Gap 6 Estimat Glomerular Filtration Rate 136 Date/Time Source Procedure Growth Status 08/29/17 20:15 Blood Line Aerobic Blood Culture - Final NO GROWTH IN 5 DAYS Complete 08/29/17 20:15 Blood Line Anaerobic Blood Culture - Final NO GROWTH IN 5 DAYS Complete 08/30/17 14:53 Wound Scalp Gram Stain - Final Complete 08/30/17 14:53 Wound Culture - Final S. Aureus Mrsa Complete Cardiovascular: Regular Lungs: Clear Abdomen: Non-distended, Non-tender Extremities: No edema Narrative Exam s/p RIGHT mastectomy----Steri strips in place; DAVE with serosanguineous drainage A/P Assessment and Plan 52 year old female POD7 RIGHT radical mastectomy -Continue routine DAVE care---output too high to take out; likely will DC next week -Pain control -Lovenox -OOB and mobilize -Regular diet -General Surgery will see peripherally over the weekend; call wit questions Attending Statement The exam, history, and the medical decision-making described in the above note were completed with the assistance of the mid-level provider. I reviewed and agree with the findings presented. I attest that I had a [id number] encounter with the patient on the same day, and personally performed and documented my assessment and findings in the medical record. pain controlled s/p mastectomy DAVE drain with clear fluid, incision healing well continue DAVE, will DC when drainage is lower Emperatriz Diamond/Staffing Specialist MARGIE Sep 29, 2017 15:26 Onel Sewell MD Oct 06, 2017 16:52
[2017-09-29 15:43] VITALS: BP 152/89; PULSE 80; RESP 18; TEMP 97.4
[2017-09-29] MEDS ORDERED: TRASTUZUMAB IV ONE (16:00)
[2017-09-29 16:30] VITALS: BP 144/91; PULSE 84; RESP 18; TEMP 98
[2017-09-29 16:59] VITALS: PULSE 82; RESP 18; O2SAT 98
[2017-09-29 17:37] VITALS: BP 145/97; PULSE 91; RESP 18; TEMP 98.4; O2SAT 97
[2017-09-29] MEDS: WARFARIN SOD 2 MG TAB PO SCH (19:43)
[2017-09-29 20:15] VITALS: BP 155/90; PULSE 101; RESP 18; TEMP 97.8; O2SAT 99
[2017-09-29] MEDS: REMOVE OLD NICODERM (NICOTINE) PATCH T-DERMAL SCH (20:36)
[2017-09-30] MEDS: ENOXAPARIN SODIUM 80 MG/0.8 ML SYRINGE SQ SCH ×2 (05:19→17:23)
[2017-09-30 05:42] VITALS: BP 115/62; PULSE 110; RESP 21; TEMP 98.4; O2SAT 96
[2017-09-30] MEDS: HALOPERIDOL 5 MG TAB PO SCH ×2 (08:55→21:00)
[2017-09-30] MEDS: BENZTROPINE MESYLATE 1 MG TAB PO SCH ×2 (08:55→21:00)
[2017-09-30] MEDS: DOCUSATE SODIUM 100 MG CAP PO SCH ×2 (08:56→21:00)
[2017-09-30] MEDS: ANASTROZOLE 1 MG TAB PO SCH (08:56)
--- NOTE | 2017-09-30 16:13 | HHI.PYPN ---
Subjective Chief Complaint: Psychosis Remarks Pt was seen and case discussed with nursing. Pt is pleasant and cooperative with exam, behaving well on the unit. No outbursts. Remains internally preoccupied. Mental Status Examination Appearance: Appropriate Consciousness: Alert Orientation: Person, Place, Date/Time Motor Activity: Other (No motor abnormalities appreciated) Speech: Unremarkable Language: Adequate Fund of Knowledge: Inadequate Attention and Concentration: Adequate Memory: Unremarkable Mood: Appropriate Affect: Blunt Thought Process & Associations: Intact Thought Content: Appropriate Hallucination Type: None Delusion Type: None Suicidal Ideation: No Suicidal Plan: No Suicidal Intention: No Homicidal Ideation: No Homicidal Plan: No Homicidal Intention: No Insight: Poor Judgment: Poor Results Labs Date/Time Source Procedure Growth Status 08/29/17 20:15 Blood Line Aerobic Blood Culture - Final NO GROWTH IN 5 DAYS Complete 08/29/17 20:15 Blood Line Anaerobic Blood Culture - Final NO GROWTH IN 5 DAYS Complete 08/30/17 14:53 Wound Scalp Gram Stain - Final Complete 08/30/17 14:53 Wound Culture - Final S. Aureus Mrsa Complete Vitals/IOs Vital Signs Date Time Temp Pulse Resp B/P (MAP) Pulse Ox O2 Delivery O2 Flow Rate FiO2 09/30/17 05:42 98.4 110 21 115/62 (79) 96 Intake and Output 09/30/17 09/30/17 10/01/17 08:00 16:00 00:00 Intake Total 240 ml 1200 ml Output Total 20 ml 5 ml Balance 220 ml 1195 ml Assessment & Plan Problem List: (1) Schizophrenia ICD Codes: F20.9 - Schizophrenia, unspecified Assessment & Plan Continue current treatment plan Justification for Cont. Inpt. Pt would decompensate in a less restrictive setting. Request HC Surrog/Guard Advoc?: Yes Problem Qualifiers (1) Schizophrenia: Qualified Codes: F20.3 - Undifferentiated schizophrenia Carmelo Velazquez DO Sep 30, 2017 16:13
[2017-09-30 17:05] LABS: PROTHROMBIN TIME - PATIENT 10.2 SEC (9.8-11.6)
[2017-09-30] MEDS: WARFARIN SOD 2 MG TAB PO SCH (17:21)
[2017-09-30 18:00] VITALS: BP 122/82; PULSE 101; RESP 20; TEMP 97.6; O2SAT 96
[2017-09-30] MEDS: REMOVE OLD NICODERM (NICOTINE) PATCH T-DERMAL SCH (21:00)
[2017-10-01] MEDS: ENOXAPARIN SODIUM 80 MG/0.8 ML SYRINGE SQ SCH ×2 (05:02→16:00)
[2017-10-01 05:57] VITALS: BP 122/73; PULSE 75; RESP 18; TEMP 97.5; O2SAT 98
[2017-10-01] MEDS: ANASTROZOLE 1 MG TAB PO SCH (09:00)
[2017-10-01] MEDS: BENZTROPINE MESYLATE 1 MG TAB PO SCH ×2 (09:00→20:29)
[2017-10-01] MEDS: DOCUSATE SODIUM 100 MG CAP PO SCH ×2 (09:00→20:29)
[2017-10-01] MEDS: HALOPERIDOL 5 MG TAB PO SCH ×2 (09:00→20:29)
--- NOTE | 2017-10-01 14:17 | HHI.PYPN ---
Subjective Chief Complaint: Psychosis Remarks Patient was seen and case discussed with nursing. Patient is eating and sleeping well. Compliant with her medications. No outbursts. Behaving well on the unit. Compliant with her medical treatment Mental Status Examination Appearance: Appropriate Consciousness: Alert Orientation: Person, Place, Date/Time Motor Activity: Other (No motor abnormalities appreciated) Speech: Unremarkable Language: Adequate Fund of Knowledge: Inadequate Attention and Concentration: Adequate Memory: Unremarkable Mood: Appropriate Affect: Blunt Thought Process & Associations: Intact Thought Content: Appropriate Hallucination Type: None Delusion Type: None Suicidal Ideation: No Suicidal Plan: No Suicidal Intention: No Homicidal Ideation: No Homicidal Plan: No Homicidal Intention: No Insight: Poor Judgment: Poor Results Labs Test 09/30/17 15:58 Prothrombin Time 10.2 SEC Prothromb Time International Ratio 1.0 RATIO Date/Time Source Procedure Growth Status 08/29/17 20:15 Blood Line Aerobic Blood Culture - Final NO GROWTH IN 5 DAYS Complete 08/29/17 20:15 Blood Line Anaerobic Blood Culture - Final NO GROWTH IN 5 DAYS Complete 08/30/17 14:53 Wound Scalp Gram Stain - Final Complete 08/30/17 14:53 Wound Culture - Final S. Aureus Mrsa Complete Vitals/IOs Vital Signs Date Time Temp Pulse Resp B/P (MAP) Pulse Ox O2 Delivery O2 Flow Rate FiO2 10/01/17 05:57 97.5 75 18 122/73 (89) 98 Intake and Output 10/01/17 10/01/17 10/02/17 08:00 16:00 00:00 Intake Total 600 ml 360 ml Output Total 50 ml Balance 550 ml 360 ml Assessment & Plan Problem List: (1) Schizophrenia ICD Codes: F20.9 - Schizophrenia, unspecified Assessment & Plan Continue current treatment plan Justification for Cont. Inpt. Patient would decompensate in a less restrictive setting Request HC Surrog/Guard Advoc?: Yes Problem Qualifiers (1) Schizophrenia: Qualified Codes: F20.3 - Undifferentiated schizophrenia Carmelo Velazquez DO Oct 01, 2017 14:17
[2017-10-01] MEDS: WARFARIN SOD 2 MG TAB PO SCH (16:00)
[2017-10-01 17:24] VITALS: BP 126/74; PULSE 94; RESP 18; TEMP 97.8; O2SAT 98
[2017-10-01] MEDS: REMOVE OLD NICODERM (NICOTINE) PATCH T-DERMAL SCH (20:24)
[2017-10-02] MEDS: ENOXAPARIN SODIUM 80 MG/0.8 ML SYRINGE SQ SCH ×2 (05:03→17:54)
[2017-10-02 06:20] VITALS: BP 119/61; PULSE 71; RESP 17; TEMP 97.5; O2SAT 98
[2017-10-02 07:26] LABS: PROTHROMBIN TIME - PATIENT 10.5 SEC (9.8-11.6)
--- NOTE | 2017-10-02 07:30 | HHI.PYPN ---
Subjective Chief Complaint: Psychosis Remarks Patient seen and examined. Chart reviewed. Case discussed with nursing staff. No behavioral issues noted overnight. On my examination today, the patient is in good spirits. She denies any SI, HI or AVH. She reports no side effects from medications. Review of Systems Except as stated in HPI: all other systems reviewed are Neg Mental Status Examination Appearance: Appropriate Consciousness: Alert Orientation: Person, Place (At least) Motor Activity: Other (No motor abnormalities appreciated) Speech: Unremarkable Language: Adequate Fund of Knowledge: Inadequate Attention and Concentration: Adequate Memory: Unremarkable Mood: Appropriate Affect: Blunt Thought Process & Associations: Intact Thought Content: Appropriate Hallucination Type: None Delusion Type: None Suicidal Ideation: No Suicidal Plan: No Suicidal Intention: No Homicidal Ideation: No Homicidal Plan: No Homicidal Intention: No Insight: Poor Judgment: Poor Results Labs Test 10/02/17 06:34 Prothrombin Time 10.5 SEC Prothromb Time International Ratio 1.0 RATIO Date/Time Source Procedure Growth Status 08/29/17 20:15 Blood Line Aerobic Blood Culture - Final NO GROWTH IN 5 DAYS Complete 08/29/17 20:15 Blood Line Anaerobic Blood Culture - Final NO GROWTH IN 5 DAYS Complete 08/30/17 14:53 Wound Scalp Gram Stain - Final Complete 08/30/17 14:53 Wound Culture - Final S. Aureus Mrsa Complete Labs reviewed Vitals/IOs Vital Signs Date Time Temp Pulse Resp B/P (MAP) Pulse Ox O2 Delivery O2 Flow Rate FiO2 10/02/17 06:20 97.5 71 17 119/61 (80) 98 Intake and Output 10/02/17 10/02/17 10/03/17 08:00 16:00 00:00 Intake Total 240 ml Balance 240 ml Assessment & Plan Problem List: (1) Schizophrenia ICD Codes: F20.9 - Schizophrenia, unspecified Assessment & Plan Continue Haldol and Cogentin as ordered. To consider initiating long-acting injectable Haldol decanoate. Continue to monitor on the medical psychiatric unit. Log Marker input appreciated. Continue other care as ordered. Justification for Cont. Inpt. Risk for decompensation in less restrictive environment. Discharge Planning Placement Request HC Surrog/Guard Advoc?: Yes Problem Qualifiers (1) Schizophrenia: Qualified Codes: F20.3 - Undifferentiated schizophrenia Fabrice Bryant MD Oct 02, 2017 07:30
[2017-10-02] MEDS: HALOPERIDOL 5 MG TAB PO SCH ×2 (09:59→21:10)
[2017-10-02] MEDS: DOCUSATE SODIUM 100 MG CAP PO SCH ×2 (09:59→21:10)
[2017-10-02] MEDS: ANASTROZOLE 1 MG TAB PO SCH (09:59)
[2017-10-02] MEDS: BENZTROPINE MESYLATE 1 MG TAB PO SCH ×2 (09:59→21:10)
[2017-10-02] MEDS: WARFARIN SOD 2 MG TAB PO SCH (17:52)
[2017-10-02 19:03] VITALS: BP 93/61; PULSE 82; RESP 17; TEMP 97.5; O2SAT 97
[2017-10-02] MEDS: REMOVE OLD NICODERM (NICOTINE) PATCH T-DERMAL SCH (21:00)
[2017-10-03] MEDS: ENOXAPARIN SODIUM 80 MG/0.8 ML SYRINGE SQ SCH ×2 (04:27→16:00)
[2017-10-03 06:15] VITALS: BP 94/54; PULSE 79; RESP 15; TEMP 98; O2SAT 96
[2017-10-03] MEDS: ANASTROZOLE 1 MG TAB PO SCH (08:24)
[2017-10-03] MEDS: BENZTROPINE MESYLATE 1 MG TAB PO SCH ×2 (08:24→20:21)
[2017-10-03] MEDS: HALOPERIDOL 5 MG TAB PO SCH ×2 (08:24→20:21)
[2017-10-03] MEDS: DOCUSATE SODIUM 100 MG CAP PO SCH ×2 (08:24→20:21)
[2017-10-03 09:06] LABS: INTERNATIONAL NORMALIZED RATIO 2.2 RATIO; PROTHROMBIN TIME - PATIENT 22.4 SEC (9.8-11.6)
--- NOTE | 2017-10-03 10:20 | HHI.PYPN ---
Subjective Chief Complaint: Psychosis Remarks Patient seen and examined. Chart reviewed. Case discussed in treatment team. [facility] an [facility] per counselor. I find the patient in the atrium area enjoying fresh air. She is in good spirits. No mood or psychotic symptoms. No physical complaints. No side effects from medications. Review of Systems Except as stated in HPI: all other systems reviewed are Neg Mental Status Examination Appearance: Appropriate Consciousness: Alert Orientation: Person, Place Motor Activity: Other (No abnormal motor movements noted) Speech: Unremarkable Language: Adequate Fund of Knowledge: Inadequate Attention and Concentration: Adequate Memory: Unremarkable Mood: Appropriate Affect: Appropriate Thought Process & Associations: Intact Thought Content: Appropriate Hallucination Type: None Delusion Type: None Suicidal Ideation: No Suicidal Plan: No Suicidal Intention: No Homicidal Ideation: No Homicidal Plan: No Homicidal Intention: No Insight: Poor Judgment: Poor Results Labs Test 10/03/17 08:08 Prothrombin Time 22.4 SEC Prothromb Time International Ratio 2.2 RATIO Date/Time Source Procedure Growth Status 08/29/17 20:15 Blood Line Aerobic Blood Culture - Final NO GROWTH IN 5 DAYS Complete 08/29/17 20:15 Blood Line Anaerobic Blood Culture - Final NO GROWTH IN 5 DAYS Complete 08/30/17 14:53 Wound Scalp Gram Stain - Final Complete 08/30/17 14:53 Wound Culture - Final S. Aureus Mrsa Complete Labs reviewed Vitals/IOs Vital Signs Date Time Temp Pulse Resp B/P (MAP) Pulse Ox O2 Delivery O2 Flow Rate FiO2 10/03/17 06:15 98.0 79 15 94/54 (67) 96 Intake and Output 10/03/17 10/03/17 10/04/17 08:00 16:00 00:00 Intake Total 120 ml 600 ml Output Total 30 ml Balance 90 ml 600 ml Assessment & Plan Problem List: (1) Schizophrenia ICD Codes: F20.9 - Schizophrenia, unspecified Assessment & Plan Patient continues to do well from a psychiatric standpoint. Continue to monitor on the inpatient unit. Continue current psychotropics as ordered. Continue other care as ordered. Justification for Cont. Inpt. Risk for decompensation and less restrictive environment. Discharge Planning Placement Request HC Surrog/Guard Advoc?: Yes Problem Qualifiers (1) Schizophrenia: Qualified Codes: F20.3 - Undifferentiated schizophrenia Fabrice Bryant MD Oct 03, 2017 10:20
[2017-10-03] MEDS: WARFARIN SOD 2 MG TAB PO SCH (16:00)
[2017-10-03 18:31] VITALS: BP 124/76; PULSE 74; RESP 16; TEMP 97.7; O2SAT 96
[2017-10-03] MEDS: REMOVE OLD NICODERM (NICOTINE) PATCH T-DERMAL SCH (20:22)
[2017-10-04] MEDS: ENOXAPARIN SODIUM 80 MG/0.8 ML SYRINGE SQ SCH ×2 (04:52→16:50)
[2017-10-04 05:04] VITALS: BP 117/70; PULSE 73; RESP 15; TEMP 98.4; O2SAT 95
[2017-10-04] MEDS: BENZTROPINE MESYLATE 1 MG TAB PO SCH ×2 (09:59→20:53)
[2017-10-04] MEDS: ANASTROZOLE 1 MG TAB PO SCH (10:00)
[2017-10-04] MEDS: DOCUSATE SODIUM 100 MG CAP PO SCH ×2 (10:00→20:53)
[2017-10-04] MEDS: HALOPERIDOL 5 MG TAB PO SCH ×2 (10:00→20:53)
--- NOTE | 2017-10-04 10:42 | HHI.PYPN ---
Subjective Chief Complaint: Psychosis Remarks Patient seen and examined. Chart reviewed. Case discussed with nursing staff who reports volumes in the DAVE drain are decreasing, and I have asked nursing staff to have surgery come back and see if this can be removed and to follow up on the patient. Case discussed with counselor who continues to work on placement. On my examination today, the patient is in her room. She denies any SI, HI or AVH. No side effects from medications. No physical complaints. I did place a call to pt's daughter to try to discuss starting Haldol Dec. Left generic requesting call back. Review of Systems Except as stated in HPI: all other systems reviewed are Neg Mental Status Examination Appearance: Appropriate Consciousness: Alert Orientation: Person, Place (at least) Motor Activity: Other (No abnormal motor movements noted) Speech: Unremarkable Language: Adequate Fund of Knowledge: Inadequate Attention and Concentration: Adequate Memory: Unremarkable Mood: Appropriate Affect: Blunt Thought Process & Associations: Intact Thought Content: Appropriate Hallucination Type: None Delusion Type: None Suicidal Ideation: No Suicidal Plan: No Suicidal Intention: No Homicidal Ideation: No Homicidal Plan: No Homicidal Intention: No Insight: Poor Judgment: Poor Results Labs Date/Time Source Procedure Growth Status 08/29/17 20:15 Blood Line Aerobic Blood Culture - Final NO GROWTH IN 5 DAYS Complete 08/29/17 20:15 Blood Line Anaerobic Blood Culture - Final NO GROWTH IN 5 DAYS Complete 08/30/17 14:53 Wound Scalp Gram Stain - Final Complete 08/30/17 14:53 Wound Culture - Final S. Aureus Mrsa Complete Labs reviewed Vitals/IOs Vital Signs Date Time Temp Pulse Resp B/P (MAP) Pulse Ox O2 Delivery O2 Flow Rate FiO2 10/04/17 05:04 98.4 73 15 117/70 (86) 95 Intake and Output 10/04/17 10/04/17 10/05/17 08:00 16:00 00:00 Intake Total 960 ml Balance 960 ml Assessment & Plan Problem List: (1) Schizophrenia ICD Codes: F20.9 - Schizophrenia, unspecified Assessment & Plan Continue current psychotropics as ordered; patient is doing well with these. Follow-up surgery recs. Continue other meds and care as ordered. Justification for Cont. Inpt. Risk for decompensation in less restrictive setting. Discharge Planning Placement. Request HC Surrog/Guard Advoc?: Yes Problem Qualifiers (1) Schizophrenia: Qualified Codes: F20.3 - Undifferentiated schizophrenia Fabrice Bryant MD Oct 04, 2017 10:42
[2017-10-04] MEDS: ACETAMINOPHEN/HYDROcodone 325 MG/5 MG TAB PO PRN ×2 (12:07→16:50)
[2017-10-04] MEDS: WARFARIN SOD 2 MG TAB PO SCH (16:50)
[2017-10-04 17:54] VITALS: BP 113/59; PULSE 89; RESP 17; TEMP 98.9; O2SAT 96
[2017-10-04 20:39] LABS: INTERNATIONAL NORMALIZED RATIO 1.1 RATIO; PROTHROMBIN TIME - PATIENT 10.7 SEC (9.8-11.6)
[2017-10-04] MEDS: REMOVE OLD NICODERM (NICOTINE) PATCH T-DERMAL SCH (20:56)
[2017-10-05] MEDS: ENOXAPARIN SODIUM 80 MG/0.8 ML SYRINGE SQ SCH ×2 (04:00→16:10)
[2017-10-05 06:00] VITALS: BP 126/75; PULSE 84; RESP 16; TEMP 98.4; O2SAT 95
[2017-10-05] MEDS: DOCUSATE SODIUM 100 MG CAP PO SCH ×2 (08:36→20:14)
[2017-10-05] MEDS: ANASTROZOLE 1 MG TAB PO SCH (08:36)
[2017-10-05] MEDS: BENZTROPINE MESYLATE 1 MG TAB PO SCH ×2 (08:36→20:13)
[2017-10-05] MEDS: HALOPERIDOL 5 MG TAB PO SCH ×2 (09:08→20:14)
[2017-10-05] MEDS: ACETAMINOPHEN/HYDROcodone 325 MG/5 MG TAB PO PRN ×2 (12:15→16:19)
--- NOTE | 2017-10-05 12:50 | HHI.PYPN ---
Subjective Chief Complaint: Psychosis Remarks Patient seen and examined. Chart reviewed. Case discussed with nursing staff. Surgeons will reportedly returned later in the week to assess the status of patient's drain. No behavioral issues noted. On my examination today, the patient is once again in good spirits. She went down earlier today for activity and engaged in some bead work. No SI or HI. No psychotic symptoms. She would like some more chocolate from Dr. Villareal. No side effects from medications. No physical complaints. Review of Systems Except as stated in HPI: all other systems reviewed are Neg Mental Status Examination Appearance: Appropriate Consciousness: Alert Orientation: Person, Place (at least) Motor Activity: Other (No motoric abnormalities noted) Speech: Unremarkable Language: Adequate Fund of Knowledge: Adequate (Fair) Attention and Concentration: Adequate Memory: Unremarkable Mood: Appropriate Affect: Appropriate Thought Process & Associations: Intact Thought Content: Appropriate Hallucination Type: None Delusion Type: None Suicidal Ideation: No Suicidal Plan: No Suicidal Intention: No Homicidal Ideation: No Homicidal Plan: No Homicidal Intention: No Insight: Poor Judgment: Poor Results Labs Test 10/04/17 19:55 Prothrombin Time 10.7 SEC Prothromb Time International Ratio 1.1 RATIO Date/Time Source Procedure Growth Status 08/29/17 20:15 Blood Line Aerobic Blood Culture - Final NO GROWTH IN 5 DAYS Complete 08/29/17 20:15 Blood Line Anaerobic Blood Culture - Final NO GROWTH IN 5 DAYS Complete 08/30/17 14:53 Wound Scalp Gram Stain - Final Complete 08/30/17 14:53 Wound Culture - Final S. Aureus Mrsa Complete Labs reviewed Vitals/IOs Vital Signs Date Time Temp Pulse Resp B/P (MAP) Pulse Ox O2 Delivery O2 Flow Rate FiO2 10/05/17 06:00 98.4 84 16 126/75 (92) 95 Intake and Output 10/05/17 10/05/17 10/06/17 08:00 16:00 00:00 Intake Total 240 ml 360 ml Balance 240 ml 360 ml Assessment & Plan Problem List: (1) Schizophrenia ICD Codes: F20.9 - Schizophrenia, unspecified Assessment & Plan Continue Haldol and Cogentin as ordered. Continue to monitor on the inpatient unit. Continue other care as ordered. Justification for Cont. Inpt. Risk for decompensation in less restrictive environment. Discharge Planning Counselor continues to work on placement. Request HC Surrog/Guard Advoc?: Yes Problem Qualifiers (1) Schizophrenia: Qualified Codes: F20.3 - Undifferentiated schizophrenia Fabrice Bryant MD Oct 05, 2017 12:50
--- NOTE | 2017-10-05 15:30 | HHI.PR ---
cc: Onel Sewell MD Subjective Subjective Notes "I had some pain earlier but it is better now." "I really like chocolate!" Objective Vitals/I&O Vital Signs Date Time Temp Pulse Resp B/P (MAP) Pulse Ox O2 Delivery O2 Flow Rate FiO2 10/05/17 06:00 98.4 84 16 126/75 (92) 95 Labs Laboratory Tests Test 10/04/17 19:55 Prothrombin Time 10.7 Prothromb Time International Ratio 1.1 Date/Time Source Procedure Growth Status 08/29/17 20:15 Blood Line Aerobic Blood Culture - Final NO GROWTH IN 5 DAYS Complete 08/29/17 20:15 Blood Line Anaerobic Blood Culture - Final NO GROWTH IN 5 DAYS Complete 08/30/17 14:53 Wound Scalp Gram Stain - Final Complete 08/30/17 14:53 Wound Culture - Final S. Aureus Mrsa Complete Cardiovascular: Regular Lungs: Clear Abdomen: Non-distended, Non-tender Extremities: Other Narrative Exam s/p RIGHT mastectomy----Steri strips in place; DAVE with serosanguineous drainage A/P Assessment and Plan 52 year old female s/p RIGHT radical mastectomy -Continue routine DAVE care---output still between 50-80 cc a day ---will leave in for now -Pain control -OOB and mobilize -Regular diet Emperatriz Diamond/[employer] MARGIE Oct 05, 2017 15:30
[2017-10-05 18:46] VITALS: BP 126/75; PULSE 84; RESP 16; TEMP 98.4; O2SAT 95
[2017-10-05] MEDS: REMOVE OLD NICODERM (NICOTINE) PATCH T-DERMAL SCH (19:48)
[2017-10-05] MEDS: WARFARIN SOD 5 MG TAB PO SCH (20:14)
[2017-10-05] MEDS: ACETAMINOPHEN/HYDROcodone 325 MG/7.5 MG TAB PO PRN (20:31)
[2017-10-06] MEDS: ACETAMINOPHEN/HYDROcodone 325 MG/7.5 MG TAB PO PRN ×4 (04:20→17:35)
[2017-10-06] MEDS: ENOXAPARIN SODIUM 80 MG/0.8 ML SYRINGE SQ SCH ×2 (04:21→15:34)
[2017-10-06 06:34] VITALS: BP 126/63; PULSE 69; RESP 18; TEMP 98.1; O2SAT 95
[2017-10-06 07:09] LABS: INTERNATIONAL NORMALIZED RATIO 1.1 RATIO; PROTHROMBIN TIME - PATIENT 10.9 SEC (9.8-11.6)
[2017-10-06] MEDS: DOCUSATE SODIUM 100 MG CAP PO SCH ×2 (08:45→20:59)
[2017-10-06] MEDS: HALOPERIDOL 5 MG TAB PO SCH ×2 (08:45→20:59)
[2017-10-06] MEDS: BENZTROPINE MESYLATE 1 MG TAB PO SCH ×2 (08:45→20:59)
[2017-10-06] MEDS: ANASTROZOLE 1 MG TAB PO SCH (09:00)
--- NOTE | 2017-10-06 10:31 | PD.ONC.PN ---
Subjective Subjective Remarks Afebrile overnight. Patient resting in room. no bleeding. having regular BM. Objective Data Date Time Temp Pulse Resp B/P (MAP) Pulse Ox O2 Delivery O2 Flow Rate FiO2 10/06/17 06:34 98.1 69 18 126/63 (84) 95 10/05/17 18:46 98.4 84 16 126/75 (92) 95 10/06/17 10/06/17 10/06/17 07:00 15:00 23:00 Intake Total 720 ml 360 ml Output Total 40 ml Balance 680 ml 360 ml Laboratory Results Laboratory Tests Test 10/06/17 06:14 Prothrombin Time 10.9 SEC Prothromb Time International Ratio 1.1 RATIO Administered Medications Medications (Trade) Dose Ordered Sig/Renard Route PRN Reason Start Time Stop Time Status Last Admin Dose Admin Anastrozole (Arimidex) 1 mg DAILY PO 09/23/17 09:00 10/05/17 08:36 Benztropine Mesylate (Cogentin) 0.5 mg Q12HR PO 09/22/17 21:00 10/06/17 08:45 Zolpidem Tartrate (Ambien) 5 mg HS PRN PO INSOMNIA 09/22/17 14:30 10/02/17 23:26 Haloperidol (Haldol) 15 mg HS PO 09/22/17 21:00 10/05/17 20:14 Acetaminophen (Tylenol) 650 mg Q4H PRN PO Temp >101F 09/22/17 15:00 09/25/17 08:09 Acetaminophen/ Hydrocodone Bitart ([place] 5-325 Mg) 1 tab Q4H PRN PO PAIN 3-5 09/22/17 15:15 10/05/17 16:19 Acetaminophen/ Hydrocodone Bitart ([place] 7.5-325 Mg) 1 tab Q4H PRN PO PAIN 6-10 09/22/17 15:15 10/06/17 08:45 Docusate Sodium (Colace) 100 mg BID PO 09/25/17 21:00 10/06/17 08:45 Haloperidol (Haldol) 15 mg DAILY PO 09/26/17 09:00 10/06/17 08:45 Enoxaparin Sodium (Lovenox Inj) 80 mg Q12H SQ 09/26/17 16:00 10/06/17 04:21 Warfarin Sodium (Coumadin) 5 mg DAILY@16 PO 10/05/17 16:00 10/05/17 20:14 Objective Remarks GENERAL: Middle aged female, lying in bed resting. SKIN: Warm and dry. HEAD: Normocephalic. EYES: No injection or drainage. NECK: Supple, trachea midline. BREAST: s/p right-sided mastectomy, incision site clean. no bleeding. DAVE drain remains in place. CARDIOVASCULAR: Regular rate and rhythm RESPIRATORY: Breath sounds equal bilaterally. No accessory muscle use. GASTROINTESTINAL: Abdomen soft, non-tender, nondistended. EXTREMITIES: No cyanosis NEUROLOGICAL: no obvious focal deficit. Assessment/Plan Problem List: (1) HER2-positive carcinoma of right breast ICD Codes: C50.911 - Malignant neoplasm of unspecified site of right female breast Plan: Standard of care to continue antibody therapy (herceptin + perjeta) for a total of 52 weeks. Transition care if transferred to [facility] hospital. --s/p right mastectomy (2) Deep venous thrombosis of left upper extremity ICD Codes: I82.622 - Acute embolism and thrombosis of deep veins of left upper extremity Plan: --on Lovenox 80mg SQ q 12 hours + coumadin, monitor INR Assessment 52y/o female with locally advanced HER2/shirley over expressing ER positive right breast cancer currently admitted for psychosis. 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 h/o Chemotherapy induced anemia. Plan 1. continue Lovenox to coumadin. 2. coumadin increased to 5mg PO daily 3. monitor INR 4. DAVE drain per Attending Statement The exam, history, and the medical decision-making described in the above note were completed with the assistance of the mid-level provider. I reviewed and agree with the findings presented. I attest that I had a [id number] encounter with the patient on the same day, and personally performed and documented my assessment and findings in the medical record. Drain with serous drainage, still in place. NO arm swelling. Goal therapeutic INR. Next dose herceptin in 2 weeks. Chest wall site looks good, healing. Idalia Disla Oct 06, 2017 10:31 Alexa Villareal MD Oct 06, 2017 16:57
[2017-10-06] MEDS: WARFARIN SOD 5 MG TAB PO SCH (15:34)
--- NOTE | 2017-10-06 15:37 | HHI.PYPN ---
Subjective Chief Complaint: Psychosis Remarks Patient seen and examined with nurse. Chart reviewed. Case discussed with nursing staff. Case discussed with counselor. Possible placement has been located. I find the patient in the day area watching some television. She remains in good spirits. No psychotic symptoms. She complains of some pain at the surgical site, and nurse reports that these complaints have already been related to consultants. No side effects from medications. No other physical complaints. Review of Systems Except as stated in HPI: all other systems reviewed are Neg Mental Status Examination Appearance: Appropriate Consciousness: Alert Orientation: Person, Place (at least) Motor Activity: Other (No abnormal motor movements noted) Speech: Unremarkable Language: Adequate Fund of Knowledge: Adequate Attention and Concentration: Adequate Memory: Unremarkable Mood: Appropriate Affect: Appropriate Thought Process & Associations: Intact Thought Content: Appropriate Hallucination Type: None Delusion Type: None Suicidal Ideation: No Suicidal Plan: No Suicidal Intention: No Homicidal Ideation: No Homicidal Plan: No Homicidal Intention: No Insight: Poor Judgment: Poor Results Labs Test 10/06/17 06:14 Prothrombin Time 10.9 SEC Prothromb Time International Ratio 1.1 RATIO Date/Time Source Procedure Growth Status 08/29/17 20:15 Blood Line Aerobic Blood Culture - Final NO GROWTH IN 5 DAYS Complete 08/29/17 20:15 Blood Line Anaerobic Blood Culture - Final NO GROWTH IN 5 DAYS Complete 08/30/17 14:53 Wound Scalp Gram Stain - Final Complete 08/30/17 14:53 Wound Culture - Final S. Aureus Mrsa Complete Labs reviewed Vitals/IOs Vital Signs Date Time Temp Pulse Resp B/P (MAP) Pulse Ox O2 Delivery O2 Flow Rate FiO2 10/06/17 06:34 98.1 69 18 126/63 (84) 95 Intake and Output 10/06/17 10/06/17 10/07/17 08:00 16:00 00:00 Intake Total 720 ml 600 ml Output Total 40 ml Balance 680 ml 600 ml Assessment & Plan Problem List: (1) Schizophrenia ICD Codes: F20.9 - Schizophrenia, unspecified Assessment & Plan Continue Haldol and Cogentin as ordered. Continue to monitor on the inpatient unit. Care Analyst input noted and appreciated. Continue other care as ordered. Justification for Cont. Inpt. Risk for decompensation in less restrictive environment. Discharge Planning Placement Request HC Surrog/Guard Advoc?: Yes Problem Qualifiers (1) Schizophrenia: Qualified Codes: F20.3 - Undifferentiated schizophrenia Fabrice Bryant MD Oct 06, 2017 15:37
[2017-10-06 17:56] VITALS: BP 109/75; PULSE 84; RESP 16; TEMP 98.5; O2SAT 95
[2017-10-06 17:58] VITALS: BP 109/75; PULSE 84; RESP 16; TEMP 98.5; O2SAT 95
[2017-10-06] MEDS: REMOVE OLD NICODERM (NICOTINE) PATCH T-DERMAL SCH (20:13)
[2017-10-07] MEDS: ENOXAPARIN SODIUM 80 MG/0.8 ML SYRINGE SQ SCH ×2 (03:10→16:05)
[2017-10-07 06:03] VITALS: BP 150/69; PULSE 77; RESP 17; TEMP 97.4; O2SAT 95
[2017-10-07] MEDS: ANASTROZOLE 1 MG TAB PO SCH (08:39)
[2017-10-07] MEDS: HALOPERIDOL 5 MG TAB PO SCH ×2 (08:39→20:52)
[2017-10-07] MEDS: ACETAMINOPHEN/HYDROcodone 325 MG/5 MG TAB PO PRN (08:40)
[2017-10-07] MEDS: BENZTROPINE MESYLATE 1 MG TAB PO SCH ×2 (08:40→20:52)
[2017-10-07] MEDS: DOCUSATE SODIUM 100 MG CAP PO SCH ×2 (08:40→20:52)
[2017-10-07 08:53] LABS: INTERNATIONAL NORMALIZED RATIO 1.2 RATIO; PROTHROMBIN TIME - PATIENT 12.2 SEC (9.8-11.6)
--- NOTE | 2017-10-07 11:25 | HHI.PYPN ---
Subjective Chief Complaint: Psychosis Remarks The patient was seen today for psychiatric reevaluation. Patient is calm, cooperative, pleasant. She reports feeling okay, reports a little bit of pain in the surgery site, she denies suicidal and was ideation, she denies visual and auditory hallucinations. The patient is compliant with her medications, no significant side effects reported. Oriented 3. Review of Systems Except as stated in HPI: all other systems reviewed are Neg Mental Status Examination Appearance: Appropriate Consciousness: Alert Orientation: Person, Place (at least) Motor Activity: Other (No abnormal motor movements noted) Speech: Unremarkable Language: Adequate Fund of Knowledge: Adequate Attention and Concentration: Adequate Memory: Unremarkable Mood: Appropriate Affect: Appropriate Thought Process & Associations: Intact Thought Content: Appropriate Hallucination Type: None Delusion Type: None Suicidal Ideation: No Suicidal Plan: No Suicidal Intention: No Homicidal Ideation: No Homicidal Plan: No Homicidal Intention: No Insight: Poor Judgment: Poor Results Labs Test 10/07/17 07:40 Prothrombin Time 12.2 SEC Prothromb Time International Ratio 1.2 RATIO Date/Time Source Procedure Growth Status 08/29/17 20:15 Blood Line Aerobic Blood Culture - Final NO GROWTH IN 5 DAYS Complete 08/29/17 20:15 Blood Line Anaerobic Blood Culture - Final NO GROWTH IN 5 DAYS Complete 08/30/17 14:53 Wound Scalp Gram Stain - Final Complete 08/30/17 14:53 Wound Culture - Final S. Aureus Mrsa Complete Vitals/IOs Vital Signs Date Time Temp Pulse Resp B/P (MAP) Pulse Ox O2 Delivery O2 Flow Rate FiO2 10/07/17 06:03 97.4 77 17 150/69 (96) 95 Intake and Output 10/07/17 10/07/17 10/08/17 08:00 16:00 00:00 Intake Total 0 ml 480 ml Output Total 30 ml Balance -30 ml 480 ml Assessment & Plan Problem List: (1) Schizophrenia ICD Codes: F20.9 - Schizophrenia, unspecified Assessment & Plan: Continue current psychotropic regimen. Brief supportive psychotherapy provided Assessment & Plan Estimated LOS: days Justification for Cont. Inpt. Patient has an elevated risk to decompensate at a lower level of care. Request HC Surrog/Guard Advoc?: Yes Problem Qualifiers (1) Schizophrenia: Qualified Codes: F20.3 - Undifferentiated schizophrenia Palomo Pham MD Oct 07, 2017 11:25
[2017-10-07] MEDS: WARFARIN SOD 5 MG TAB PO SCH (16:05)
[2017-10-07] MEDS: ACETAMINOPHEN/HYDROcodone 325 MG/7.5 MG TAB PO PRN (17:32)
[2017-10-07 18:22] VITALS: BP 143/82; PULSE 92; RESP 18; TEMP 98.2; O2SAT 97
[2017-10-07] MEDS: REMOVE OLD NICODERM (NICOTINE) PATCH T-DERMAL SCH (19:34)
[2017-10-08] MEDS: ENOXAPARIN SODIUM 80 MG/0.8 ML SYRINGE SQ SCH ×2 (04:15→17:25)
[2017-10-08 05:47] LABS: INTERNATIONAL NORMALIZED RATIO 1.4 RATIO; PROTHROMBIN TIME - PATIENT 13.8 SEC (9.8-11.6)
[2017-10-08 07:20] VITALS: BP 139/65; PULSE 73; RESP 16; TEMP 97.4; O2SAT 96
[2017-10-08] MEDS: BENZTROPINE MESYLATE 1 MG TAB PO SCH ×2 (08:51→21:00)
[2017-10-08] MEDS: DOCUSATE SODIUM 100 MG CAP PO SCH ×2 (08:51→21:00)
[2017-10-08] MEDS: ANASTROZOLE 1 MG TAB PO SCH (08:51)
[2017-10-08] MEDS: HALOPERIDOL 5 MG TAB PO SCH ×2 (08:51→21:00)
--- NOTE | 2017-10-08 10:52 | HHI.PYPN ---
Subjective Chief Complaint: Psychosis Remarks The patient was seen today for psychiatric reevaluation, the patient was calm, cooperative, pleasant. Reports good mood, denies pain, denies distress, denies suicidal enemas ideation, she denies visual and auditory hallucinations. The patient has been compliant, no significant side effects reported. No behavioral problems in the unit Mental Status Examination Appearance: Appropriate Consciousness: Alert Orientation: Person, Place (at least) Motor Activity: Other (No abnormal motor movements noted) Speech: Unremarkable Language: Adequate Fund of Knowledge: Adequate Attention and Concentration: Adequate Memory: Unremarkable Mood: Appropriate Affect: Appropriate Thought Process & Associations: Intact Thought Content: Appropriate Hallucination Type: None Delusion Type: None Suicidal Ideation: No Suicidal Plan: No Suicidal Intention: No Homicidal Ideation: No Homicidal Plan: No Homicidal Intention: No Insight: Poor Judgment: Poor Results Labs Test 10/08/17 05:10 Prothrombin Time 13.8 SEC Prothromb Time International Ratio 1.4 RATIO Date/Time Source Procedure Growth Status 08/29/17 20:15 Blood Line Aerobic Blood Culture - Final NO GROWTH IN 5 DAYS Complete 08/29/17 20:15 Blood Line Anaerobic Blood Culture - Final NO GROWTH IN 5 DAYS Complete 08/30/17 14:53 Wound Scalp Gram Stain - Final Complete 08/30/17 14:53 Wound Culture - Final S. Aureus Mrsa Complete Vitals/IOs Vital Signs Date Time Temp Pulse Resp B/P (MAP) Pulse Ox O2 Delivery O2 Flow Rate FiO2 10/08/17 07:20 97.4 73 16 139/65 (89) 96 Intake and Output 10/08/17 10/08/17 10/09/17 08:00 16:00 00:00 Intake Total 0 ml Balance 0 ml Assessment & Plan Problem List: (1) Schizophrenia ICD Codes: F20.9 - Schizophrenia, unspecified Assessment & Plan Estimated LOS: days Justification for Cont. Inpt. Patient has an elevated risk to decompensate out of a structured environment Request HC Surrog/Guard Advoc?: Yes Problem Qualifiers (1) Schizophrenia: Qualified Codes: F20.3 - Undifferentiated schizophrenia Palomo Pham MD Oct 08, 2017 10:52
[2017-10-08] MEDS: WARFARIN SOD 5 MG TAB PO SCH (17:25)
[2017-10-08 17:48] VITALS: BP 116/63; PULSE 74; RESP 16; TEMP 97.3; O2SAT 97
[2017-10-08] MEDS: ACETAMINOPHEN/HYDROcodone 325 MG/7.5 MG TAB PO PRN (18:18)
[2017-10-08] MEDS: REMOVE OLD NICODERM (NICOTINE) PATCH T-DERMAL SCH (21:00)
[2017-10-08] MEDS: ACETAMINOPHEN/HYDROcodone 325 MG/5 MG TAB PO PRN (22:00)
[2017-10-09] MEDS: ACETAMINOPHEN/HYDROcodone 325 MG/7.5 MG TAB PO PRN (02:56)
[2017-10-09] MEDS: ENOXAPARIN SODIUM 80 MG/0.8 ML SYRINGE SQ SCH ×2 (03:36→16:00)
[2017-10-09 05:56] VITALS: BP 111/56; PULSE 87; RESP 16; TEMP 97.5; O2SAT 94
[2017-10-09] MEDS: BENZTROPINE MESYLATE 1 MG TAB PO SCH ×2 (08:56→21:05)
[2017-10-09] MEDS: DOCUSATE SODIUM 100 MG CAP PO SCH ×2 (08:56→21:00)
[2017-10-09] MEDS: HALOPERIDOL 5 MG TAB PO SCH ×2 (08:56→21:06)
[2017-10-09] MEDS: ANASTROZOLE 1 MG TAB PO SCH (08:56)
[2017-10-09 11:33] LABS: INTERNATIONAL NORMALIZED RATIO 1.4 RATIO
--- NOTE | 2017-10-09 15:18 | HHI.PYPN ---
Subjective Chief Complaint: Psychosis Remarks Patient seen and examined. Chart reviewed. Case discussed with nursing staff. Patient no behavioral problem. DAVE drain output remains fairly high, 40 cc since starting shift per nursing. Nurse will reach out to the surgeons to follow up. On my examination today, patient remains at her recent baseline. She is calm and cooperative with exam. No SI or HI. No AVH. No side effects from medications. No acute physical complaints. Complains somewhat about the monotony of her diet, and I have asked the nursing staff to see if we can introduce more variety into her diet. Left requesting call back for patient's daughter/GA to discuss initiation of long-acting injectable antipsychotic. Review of Systems Except as stated in HPI: all other systems reviewed are Neg Mental Status Examination Appearance: Appropriate Consciousness: Alert Orientation: Person, Place Motor Activity: Other (No motor abnormalities noted) Speech: Unremarkable Language: Adequate Fund of Knowledge: Adequate Attention and Concentration: Adequate Memory: Unremarkable Mood: Appropriate Affect: Appropriate Thought Process & Associations: Intact Thought Content: Appropriate Hallucination Type: None Delusion Type: None Suicidal Ideation: No Suicidal Plan: No Suicidal Intention: No Homicidal Ideation: No Homicidal Plan: No Homicidal Intention: No Insight: Poor Judgment: Poor Results Labs Test 10/09/17 06:00 Prothrombin Time 14.0 SEC Prothromb Time International Ratio 1.4 RATIO Date/Time Source Procedure Growth Status 08/29/17 20:15 Blood Line Aerobic Blood Culture - Final NO GROWTH IN 5 DAYS Complete 08/29/17 20:15 Blood Line Anaerobic Blood Culture - Final NO GROWTH IN 5 DAYS Complete 08/30/17 14:53 Wound Scalp Gram Stain - Final Complete 08/30/17 14:53 Wound Culture - Final S. Aureus Mrsa Complete Labs reviewed Vitals/IOs Vital Signs Date Time Temp Pulse Resp B/P (MAP) Pulse Ox O2 Delivery O2 Flow Rate FiO2 10/09/17 05:56 97.5 87 16 111/56 (31) 94 Intake and Output 10/09/17 10/09/17 10/10/17 08:00 16:00 00:00 Intake Total 240 ml Output Total 40 ml Balance 240 ml -40 ml Assessment & Plan Problem List: (1) Schizophrenia ICD Codes: F20.9 - Schizophrenia, unspecified Assessment & Plan Continue Haldol and Cogentin as ordered. I would like to initiate a long- acting injectable prior to discharge if I can obtain consent from patient's guardian advocate. Second Cutter input appreciated. Continue other medications and care as ordered. Justification for Cont. Inpt. Risk for decompensation in less restrictive environment. Discharge Planning Placement. Counselor notes that she has a facility lined up once the patient is medically cleared. Request HC Surrog/Guard Advoc?: Yes Problem Qualifiers (1) Schizophrenia: Qualified Codes: F20.3 - Undifferentiated schizophrenia Fabrice Bryant MD Oct 09, 2017 15:18
[2017-10-09] MEDS: WARFARIN SOD 5 MG TAB PO SCH (16:00)
[2017-10-09 18:11] VITALS: BP 136/92; PULSE 74; RESP 16; TEMP 97.6; O2SAT 95
[2017-10-09] MEDS: REMOVE OLD NICODERM (NICOTINE) PATCH T-DERMAL SCH (21:00)
[2017-10-10 04:34] VITALS: BP 145/75; PULSE 67; RESP 16; TEMP 97.1; O2SAT 95
[2017-10-10 08:16] LABS: INTERNATIONAL NORMALIZED RATIO 1.5 RATIO; PROTHROMBIN TIME - PATIENT 15.4 SEC (9.8-11.6)
[2017-10-10] MEDS: ANASTROZOLE 1 MG TAB PO SCH (08:48)
[2017-10-10] MEDS: BENZTROPINE MESYLATE 1 MG TAB PO SCH ×2 (08:49→21:14)
[2017-10-10] MEDS: DOCUSATE SODIUM 100 MG CAP PO SCH ×2 (08:49→21:14)
[2017-10-10] MEDS: ENOXAPARIN SODIUM 80 MG/0.8 ML SYRINGE SQ SCH (08:49)
[2017-10-10] MEDS: HALOPERIDOL 5 MG TAB PO SCH ×2 (08:49→21:14)
[2017-10-10] MEDS ORDERED: ENOXAPARIN SODIUM 80 MG/0.8 ML SYRINGE SQ SCH (09:00)
--- NOTE | 2017-10-10 09:48 | HHI.PYPN ---
Subjective Chief Complaint: Psychosis Remarks Patient seen and examined with nurse. Chart reviewed. Case discussed with nursing and in treatment team. DAVE drain output remains high, and I have left a message through the call center for surgery team to call me back to see how to manage this issue. On my exam today, patient is relevant and appropriate in conversation. No SI/HI. No psychotic symptoms. No side effects from medications. No physical complaints. Review of Systems Except as stated in HPI: all other systems reviewed are Neg Mental Status Examination Appearance: Appropriate Consciousness: Alert Orientation: Person, Place Motor Activity: Other (No abnormal motor movements noted) Speech: Unremarkable Language: Adequate Fund of Knowledge: Adequate Attention and Concentration: Adequate Memory: Unremarkable Mood: Appropriate Affect: Appropriate Thought Process & Associations: Intact, Linear Thought Content: Appropriate Hallucination Type: None Delusion Type: None Suicidal Ideation: No Suicidal Plan: No Suicidal Intention: No Homicidal Ideation: No Homicidal Plan: No Homicidal Intention: No Insight: Poor Judgment: Poor Results Labs Test 10/10/17 07:29 Prothrombin Time 15.4 SEC Prothromb Time International Ratio 1.5 RATIO Date/Time Source Procedure Growth Status 08/29/17 20:15 Blood Line Aerobic Blood Culture - Final NO GROWTH IN 5 DAYS Complete 08/29/17 20:15 Blood Line Anaerobic Blood Culture - Final NO GROWTH IN 5 DAYS Complete 08/30/17 14:53 Wound Scalp Gram Stain - Final Complete 08/30/17 14:53 Wound Culture - Final S. Aureus Mrsa Complete Labs reviewed Vitals/IOs Vital Signs Date Time Temp Pulse Resp B/P (MAP) Pulse Ox O2 Delivery O2 Flow Rate FiO2 10/10/17 04:34 97.1 67 16 145/75 (98) 95 Intake and Output 10/10/17 10/10/17 10/11/17 08:00 16:00 00:00 Intake Total 240 ml Balance 240 ml Assessment & Plan Problem List: (1) Schizophrenia ICD Codes: F20.9 - Schizophrenia, unspecified Assessment & Plan Continue current psychiatric medications as ordered. Await a call back from surgical team regarding management of drain/postsurgical care. Oncology input noted and appreciated. Continue to monitor on the inpatient unit. Continue other medications and care as ordered. Justification for Cont. Inpt. Complicating condition. Risk for decompensation in less restrictive environment. Discharge Planning Placement. Request HC Surrog/Guard Advoc?: Yes Problem Qualifiers (1) Schizophrenia: Qualified Codes: F20.3 - Undifferentiated schizophrenia Fabrice Bryant MD October 10, 2017 09:48
--- NOTE | 2017-10-10 10:57 | PD.TTN ---
Patient Problems 1. Discharge planning 2. Medication compliance 3. Knowledge deficit 4. Lack of coping skills Progress Toward Goals Provider Present: Dr. Yen Bryant Provider Input: 10/10/2017; patient require medical clearence, she is cleared psychic. RN is instructed to see if medical will accept patient on the medical floor 09/29/2017; patient is stable with medication levels, placement verse State state option 09/26/17 Patient's Haldol has been increased. Patient is doing well with her surgery 09/05/2017; patient is pending medical treatment, and dc to the [facility] 09/01/2017; Patient is pending medical treatment and [facility] 08/28/2017: Patient is pending [facility], breast removal surgery 08/23/2017: Patient has one remaining Chemo treatment and within three weeks she will have surgery 08/21/2017; Patient is a state wait, still disorganized, requires stable appropriate dc placement for medical and mental health purpose. 08/16/2017;Patient is a state wait, has one more treatment and will be able to be transferred to [facility] 08/07/2017; patient is a state wait or will require a structure discharge environment 07/24/2017; per Dr. Enamorado, patient continues to display inappropriate behavior, requesting redirection with thoughts/mood. 07/19/17 remains in need for stabilization and is lacking insight and remains at high risk for decompensation 07/17/17 patient is receiving chemo and presenting different than last hospitalization which she was manic, now she is withdrawn and limited in talking and interacting 07/14/17 patient came from independent living at [facility] and appears not being able to return there - she can benefit from an FIFI placement Nurse(s) Present: RN Nurse(s) Input: 10/10/2017; patient is eating, taking medication, visible on the unit, still having a significant amount of leaking fluids and medical has not cleared patient 09/29/2017; patient is eating meals, taking medication and visible on the unit 09/26/17 Patient is doing well. Per nurse, patient starts her chemo threatments on . Patient is cooperative and takes her medication 09/05/2017; patient is eating meals, taking her meds 09/01/2017; patient is positive for MRSA, taking her meds, and eating meals 08/28/2017: Patient is compliant with meals, and treatment 08/23/2017; patient is compliant with medication, meals requires some motivation and coaching 08/21/2017; patient is eating and taking her medication, needs prompting and encouragement 08/16/2017: patient is eating taking her medication, has no motivation and isolate most of the day. Patient is eating and very redirectable Psychiatric Counselors Present: Fernanda Garrett [facility] Psych Therapist Input: 10/09/2017: patient has been accepted at [facility] when medically cleared 09/29/2017; counselor will continue exploring placement and assist patient with verification of income 09/26/17 Patient presents limited in conversation. Patient does have difficulty hearing. Patient made good eye contact. Patient denies suicidal and homicidal ideation. Patient is medication compliant, eating well. Patient reports feeling well after her mastecomy. 09/05/2017; counselor will update patient's State hospital status 09/01/2017; patient is encouraged with treatment, and groups 08/28/2017: Patient is encouraged with meals, treatment and groups 08/23/2017; counselor will call previous facilities to inquire if they would accept patient after surgery is complete 08/21/2017: counselor will encourage patient with activities 08/16/2017; patient is enouraged with meals, mood, and group participation 08/07/2017; patient is encouraged with meals, mood and medication 07/24/2017; patient is encouraged with mood, meals and medication compliance 07/19/17 still erratic, mood unstable, disorganized thoughts continue , needs at least FIFI if not more care 07/17/17 will work on SNF facilities and refer patient today, she remains uncooperative with this therapist 07/14/17 patient refused to talk to this counselor twice yesterday, pretending to sleep she is reported by nurses to remain in bed without interacting and irritable Group Spec/RT/OT/DONATO Present: Onel Devi, OT Group Spec/RT/OT/DONATO Input: 09/29/2017; patient has been unable to attend groups due to medical 09/25/17 Patient does attend groups and appears to enjoy them. 09/05/2017: patient has MRSA and unable to attend group 09/01/2017; per to MRSA patient had been attending groups now she is unable 08/28/2017: Patient attends select groups, with little participation 08/23/2017: Patient has been attending groups; however she is easily overwhelmed; complete simple task 08/16/2017; patient will not participate with groups or activities 08/07/2017; patient is unable to participate with groups or activities 07/24/2017; patient continues to be unable to participate with groups and activities 07/19/17 cannot tolerate groups and non reality based thoughts 07/17/17 does not attend group and does not tolerate 07/14/17 patient does not attend groups and does not tolerate groups Documentation Scribe: Fernanda Dupree [facility] October 10, 2017 10:57
--- NOTE | 2017-10-10 12:48 | PD.ONC.PN ---
Subjective Subjective Remarks Afebrile Patient reports her left arm swelling is much improved Still has DAVE drain from recent mastectomy She is looking forward to this coming out so she can take shower No bleeding Objective Data Date Time Temp Pulse Resp B/P (MAP) Pulse Ox O2 Delivery O2 Flow Rate FiO2 10/10/17 04:34 97.1 67 16 145/75 (98) 95 10/09/17 18:11 97.6 74 16 136/92 (107) 95 10/10/17 10/10/17 10/10/17 07:00 15:00 23:00 Intake Total 240 ml Output Total 30 ml Balance 240 ml -30 ml Laboratory Results Laboratory Tests Test 10/10/17 07:29 Prothrombin Time 15.4 SEC Prothromb Time International Ratio 1.5 RATIO Administered Medications Medications (Trade) Dose Ordered Sig/Renard Route PRN Reason Start Time Stop Time Status Last Admin Dose Admin Anastrozole (Arimidex) 1 mg DAILY PO 09/23/17 09:00 10/10/17 08:48 Benztropine Mesylate (Cogentin) 0.5 mg Q12HR PO 09/22/17 21:00 10/10/17 08:49 Zolpidem Tartrate (Ambien) 5 mg HS PRN PO INSOMNIA 09/22/17 14:30 10/02/17 23:26 Haloperidol (Haldol) 15 mg HS PO 09/22/17 21:00 10/09/17 21:06 Acetaminophen (Tylenol) 650 mg Q4H PRN PO Temp >101F 09/22/17 15:00 09/25/17 08:09 Acetaminophen/ Hydrocodone Bitart ([place] 5-325 Mg) 1 tab Q4H PRN PO PAIN 3-5 09/22/17 15:15 10/08/17 22:00 Acetaminophen/ Hydrocodone Bitart ([place] 7.5-325 Mg) 1 tab Q4H PRN PO PAIN 6-10 09/22/17 15:15 10/09/17 02:56 Docusate Sodium (Colace) 100 mg BID PO 09/25/17 21:00 10/09/17 21:00 Haloperidol (Haldol) 15 mg DAILY PO 09/26/17 09:00 10/10/17 08:49 Enoxaparin Sodium (Lovenox Inj) 80 mg DAILY SQ 10/10/17 09:00 10/10/17 08:49 Objective Remarks GENERAL: Middle aged female sitting up in bed eating a popsicle watching TV on approach SKIN: Dry and intact. Recent right mastectomy site well approximated. No erythema at site. Small amt erythema at site of DAVE drain insertion. Small amount serosanguineous drainage noted in drain. HEAD: Normocephalic. EYES: No injection or drainage. NECK: Supple, trachea midline. CARDIOVASCULAR: Regular rate and rhythm. RESPIRATORY: Breath sounds equal bilaterally. No accessory muscle use. GASTROINTESTINAL: Abdomen soft, non-tender, nondistended. EXTREMITIES: No cyanosis, or edema. MUSCULOSKELETAL: Adequate muscle tone. NEUROLOGICAL: No obvious focal deficit. Assessment/Plan Problem List: (1) HER2-positive carcinoma of right breast ICD Codes: C50.911 - Malignant neoplasm of unspecified site of right female breast Plan: Standard of care to continue antibody therapy (herceptin + perjeta) for a total of 52 weeks. Transition care if transferred to [facility]. --s/p right mastectomy (2) Deep venous thrombosis of left upper extremity ICD Codes: I82.622 - Acute embolism and thrombosis of deep veins of left upper extremity Plan: --on Lovenox 80mg SQ q 12 hours + coumadin, monitor INR Assessment 52y/o female with locally advanced HER2/shirley over expressing ER positive right breast cancer currently admitted for psychosis. 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 h/o Chemotherapy induced anemia. Plan 1. Continue Lovenox to Coumadin bridge 2. Increase Coumadin to 6 mg p.o. daily 3. Next Perjeta/Herceptin due on 10/20. 4. Monitor INR. Attending Statement Agree with above. Cont Lovenox until INR therapeutic. Warfarin titrated by pharmacy. Continue AI. Defer to surgery team for removal of drain. Cheryl Jimenez October 10, 2017 12:48 Alexa Villareal MD October 10, 2017 17:11
[2017-10-10] MEDS: WARFARIN SOD 6 MG TAB PO SCH (16:00)
[2017-10-10 18:19] VITALS: BP 125/83; PULSE 78; RESP 16; TEMP 97.5; O2SAT 98
[2017-10-10] MEDS: REMOVE OLD NICODERM (NICOTINE) PATCH T-DERMAL SCH (21:00)
[2017-10-11 06:16] VITALS: BP 144/88; PULSE 67; RESP 16; TEMP 97.6; O2SAT 98
[2017-10-11] MEDS: HALOPERIDOL 5 MG TAB PO SCH ×2 (08:33→21:00)
[2017-10-11] MEDS: ANASTROZOLE 1 MG TAB PO SCH (08:33)
[2017-10-11] MEDS: DOCUSATE SODIUM 100 MG CAP PO SCH ×2 (08:33→21:00)
[2017-10-11] MEDS: ENOXAPARIN SODIUM 80 MG/0.8 ML SYRINGE SQ SCH (08:34)
[2017-10-11] MEDS: BENZTROPINE MESYLATE 1 MG TAB PO SCH ×2 (08:34→21:00)
[2017-10-11 11:37] LABS: INTERNATIONAL NORMALIZED RATIO 1.5 RATIO; PROTHROMBIN TIME - PATIENT 15.3 SEC (9.8-11.6)
--- NOTE | 2017-10-11 13:25 | HHI.PYPN ---
Subjective Chief Complaint: Psychosis Remarks Patient seen and examined. Chart reviewed. Case discussed with nursing staff. Case discussed with treatment team. Counselor informs me that patient can go to [facility] Monday of next week. Discussed case with Dr. Sewell who reports plan from surgical standpoint is to pull DAVE drain tomorrow or Monday and patient will be clear from surgical standpoint for discharge thereafter. Spoke with Dr. Villareal who notes patient can be cleared for discharge Monday from oncology standpoint. On my exam, patient continues to do well from psych standpoint. No evidence of decompensated psychosis. No mood symptoms. She notes she has spoken recently with daughter, and I asked patient to have daughter give me a call to discuss SMITH antipsychotic. I tried to reach daughter myself this afternoon without success. No side effects from medications. No physical complaints. Review of Systems Except as stated in HPI: all other systems reviewed are Neg Mental Status Examination Appearance: Appropriate Consciousness: Alert Orientation: Person, Place Motor Activity: Other (No abnormal motor movements appreciated) Speech: Unremarkable Language: Adequate Fund of Knowledge: Adequate Attention and Concentration: Adequate Memory: Unremarkable Mood: Appropriate Affect: Appropriate Thought Process & Associations: Intact, Linear Thought Content: Appropriate Hallucination Type: None Delusion Type: None Suicidal Ideation: No Suicidal Plan: No Suicidal Intention: No Homicidal Ideation: No Homicidal Plan: No Homicidal Intention: No Insight: Poor Judgment: Poor Results Labs Test 10/11/17 10:33 Prothrombin Time 15.3 SEC Prothromb Time International Ratio 1.5 RATIO Date/Time Source Procedure Growth Status 08/29/17 20:15 Blood Line Aerobic Blood Culture - Final NO GROWTH IN 5 DAYS Complete 08/29/17 20:15 Blood Line Anaerobic Blood Culture - Final NO GROWTH IN 5 DAYS Complete 08/30/17 14:53 Wound Scalp Gram Stain - Final Complete 08/30/17 14:53 Wound Culture - Final S. Aureus Mrsa Complete Labs reviewed Vitals/IOs Vital Signs Date Time Temp Pulse Resp B/P (MAP) Pulse Ox O2 Delivery O2 Flow Rate FiO2 10/11/17 06:16 97.6 67 16 144/88 (106) 98 Intake and Output 10/11/17 10/11/17 10/12/17 08:00 16:00 00:00 Intake Total 480 ml 480 ml Output Total 25 ml 15 ml Balance 455 ml 465 ml Assessment & Plan Problem List: (1) Schizophrenia ICD Codes: F20.9 - Schizophrenia, unspecified Assessment & Plan Continue current psychotropic medications as ordered. Appreciate air quality consultant input and assistance. Continue other medications and care as ordered. Justification for Cont. Inpt. Risk for decompensation in less restrictive environment. Discharge Planning Anticipate discharge to [facility] Monday. Request HC Surrog/Guard Advoc?: Yes Problem Qualifiers (1) Schizophrenia: Qualified Codes: F20.3 - Undifferentiated schizophrenia Fabrice Bryant MD October 11, 2017 13:25
[2017-10-11] MEDS: WARFARIN SOD 6 MG TAB PO SCH (16:00)
[2017-10-11 18:18] VITALS: BP 118/68; PULSE 74; RESP 16; TEMP 97.4; O2SAT 98
[2017-10-11] MEDS: REMOVE OLD NICODERM (NICOTINE) PATCH T-DERMAL SCH (21:00)
[2017-10-12 06:15] VITALS: BP 142/68; PULSE 61; RESP 18; TEMP 97.8
[2017-10-12] MEDS: BENZTROPINE MESYLATE 1 MG TAB PO SCH ×2 (08:29→20:26)
[2017-10-12] MEDS: DOCUSATE SODIUM 100 MG CAP PO SCH ×2 (08:29→20:26)
[2017-10-12] MEDS: ANASTROZOLE 1 MG TAB PO SCH (08:29)
[2017-10-12] MEDS: HALOPERIDOL 5 MG TAB PO SCH ×2 (08:29→20:25)
[2017-10-12] MEDS: ENOXAPARIN SODIUM 80 MG/0.8 ML SYRINGE SQ SCH (08:30)
[2017-10-12 09:27] LABS: HEMATOCRIT 38.6 % (35.0-46.0); HEMOGLOBIN 13.2 GM/DL (11.6-15.3); MEAN CELL VOLUME 91.1 FL (80.0-100.0); MEAN CORPUSCULAR HEMOGLOBIN 31.1 PG (27.0-34.0); MEAN CORPUSCULAR HGB CONC 34.2 % (32.0-36.0); MEAN PLATELET VOLUME 7.6 FL (7.0-11.0); PLATELET COUNT 392 TH/MM3 (150-450); RED BLOOD COUNT 4.24 MIL/MM3 (4.00-5.30); RED CELL DISTRIBUTION WIDTH 13.1 % (11.6-17.2); WHITE BLOOD COUNT 6.3 TH/MM3 (4.0-11.0)
[2017-10-12 09:34] LABS: INTERNATIONAL NORMALIZED RATIO 1.5 RATIO; PROTHROMBIN TIME - PATIENT 14.7 SEC (9.8-11.6)
--- NOTE | 2017-10-12 11:12 | HHI.PYPN ---
Subjective Chief Complaint: Psychosis Remarks Patient seen and examined with nurse. Chart reviewed. Case discussed with nursing staff. No behavioral issues noted. DAVE drain output is decreasing. On my examination today, the patient remained psychiatrically stable. She denies AVH. No SI or HI. Denies side effects from medications. She is agreeable to initiating long-acting injectable antipsychotic once we obtain consent from guardian advocate. No physical complaints. Counselor requesting I initiate home health referral in anticipation of discharge after the weekend, which I have done. Review of Systems Except as stated in HPI: all other systems reviewed are Neg Mental Status Examination Appearance: Appropriate Consciousness: Alert Orientation: Person, Place Motor Activity: Other (No motor abnormalities noted) Speech: Unremarkable Language: Adequate Fund of Knowledge: Adequate Attention and Concentration: Adequate Memory: Unremarkable Mood: Appropriate Affect: Appropriate Thought Process & Associations: Intact, Linear Thought Content: Appropriate Hallucination Type: None (Denies AVH) Delusion Type: None Suicidal Ideation: No Suicidal Plan: No Suicidal Intention: No Homicidal Ideation: No Homicidal Plan: No Homicidal Intention: No Insight: Poor Judgment: Poor Results Labs Test 10/12/17 09:08 White Blood Count 6.3 TH/MM3 Red Blood Count 4.24 MIL/MM3 Hemoglobin 13.2 GM/DL Hematocrit 38.6 % Mean Corpuscular Volume 91.1 FL Mean Corpuscular Hemoglobin 31.1 PG Mean Corpuscular Hemoglobin Concent 34.2 % Red Cell Distribution Width 13.1 % Platelet Count 392 TH/MM3 Mean Platelet Volume 7.6 FL Prothrombin Time 14.7 SEC Prothromb Time International Ratio 1.5 RATIO Date/Time Source Procedure Growth Status 08/29/17 20:15 Blood Line Aerobic Blood Culture - Final NO GROWTH IN 5 DAYS Complete 08/29/17 20:15 Blood Line Anaerobic Blood Culture - Final NO GROWTH IN 5 DAYS Complete 08/30/17 14:53 Wound Scalp Gram Stain - Final Complete 08/30/17 14:53 Wound Culture - Final S. Aureus Mrsa Complete Labs reviewed. CBC unremarkable. Vitals/IOs Vital Signs Date Time Temp Pulse Resp B/P (MAP) Pulse Ox O2 Delivery O2 Flow Rate FiO2 10/12/17 06:15 97.8 61 18 142/68 (92) 10/11/17 18:18 98 Intake and Output 10/12/17 10/12/17 10/13/17 08:00 16:00 00:00 Intake Total 240 ml Balance 240 ml Assessment & Plan Problem List: (1) Schizophrenia ICD Codes: F20.9 - Schizophrenia, unspecified Assessment & Plan Continue current psychotropics as ordered. I would like to initiate long- acting injectable antipsychotic if consent can be obtained from guardian advocate prior to discharge. Continue other medications and care as ordered. Justification for Cont. Inpt. Risk for decompensation in less restrictive environment. Discharge Planning Anticipate discharge to assisted living facility Monday Request HC Surrog/Guard Advoc?: Yes Problem Qualifiers (1) Schizophrenia: Qualified Codes: F20.3 - Undifferentiated schizophrenia Fabrice Bryant MD October 12, 2017 11:12
--- NOTE | 2017-10-12 11:13 | HHI.FF ---
Face to Face Verification Diagnosis: (1) Schizophrenia (2) HER2-positive carcinoma of right breast Occupational Therapy Order: Evaluate and Treat Home Health Nursing Order: Signs/symptoms of disease process Nursing assessment with vital signs I have seen patient Leena Pelletier on 10/12/17. My clinical findings support the need for the requested home health care services because: Need for psychosocial assistance I certify that my clinical findings support that this patient is homebound because: Need for psychosocial assistance Fabrice Bryant MD October 12, 2017 11:13
--- NOTE | 2017-10-12 14:50 | PD.ONC.PN ---
Subjective Subjective Remarks c/o hair eager to have drain taken out seem to accept plan to DC to [facility] Chest wall site healing. Objective Data Date Time Temp Pulse Resp B/P (MAP) Pulse Ox O2 Delivery O2 Flow Rate FiO2 10/12/17 06:15 97.8 61 18 142/68 (92) 10/11/17 18:18 97.4 74 16 118/68 (85) 98 10/12/17 10/12/17 10/12/17 07:00 15:00 23:00 Intake Total 480 ml Output Total 22 ml Balance 458 ml Result Diagram: 10/12/17 09 Laboratory Results Laboratory Tests Test 10/12/17 09:08 White Blood Count 6.3 TH/MM3 Red Blood Count 4.24 MIL/MM3 Hemoglobin 13.2 GM/DL Hematocrit 38.6 % Mean Corpuscular Volume 91.1 FL Mean Corpuscular Hemoglobin 31.1 PG Mean Corpuscular Hemoglobin Concent 34.2 % Red Cell Distribution Width 13.1 % Platelet Count 392 TH/MM3 Mean Platelet Volume 7.6 FL Prothrombin Time 14.7 SEC Prothromb Time International Ratio 1.5 RATIO Administered Medications Medications (Trade) Dose Ordered Sig/Renard Route PRN Reason Start Time Stop Time Status Last Admin Dose Admin Anastrozole (Arimidex) 1 mg DAILY PO 09/23/17 09:00 10/12/17 08:29 Benztropine Mesylate (Cogentin) 0.5 mg Q12HR PO 09/22/17 21:00 10/12/17 08:29 Zolpidem Tartrate (Ambien) 5 mg HS PRN PO INSOMNIA 09/22/17 14:30 10/02/17 23:26 Haloperidol (Haldol) 15 mg HS PO 09/22/17 21:00 10/11/17 21:00 Acetaminophen (Tylenol) 650 mg Q4H PRN PO Temp >101F 09/22/17 15:00 09/25/17 08:09 Acetaminophen/ Hydrocodone Bitart ([place] 5-325 Mg) 1 tab Q4H PRN PO PAIN 3-5 09/22/17 15:15 10/08/17 22:00 Acetaminophen/ Hydrocodone Bitart ([place] 7.5-325 Mg) 1 tab Q4H PRN PO PAIN 6-10 09/22/17 15:15 10/09/17 02:56 Docusate Sodium (Colace) 100 mg BID PO 09/25/17 21:00 10/12/17 08:29 Haloperidol (Haldol) 15 mg DAILY PO 09/26/17 09:00 10/12/17 08:29 Enoxaparin Sodium (Lovenox Inj) 80 mg DAILY SQ 10/10/17 09:00 10/12/17 08:30 Warfarin Sodium (Coumadin) 6 mg DAILY@16 PO 10/10/17 16:00 10/11/17 16:00 Objective Remarks GENERAL: Well-nourished, well-developed patient. SKIN: Warm and dry. HEAD: Normocephalic. EYES: No scleral icterus. No injection or drainage. NECK: Supple, trachea midline. No JVD or lymphadenopathy. LYMPHATIC: No adenopathy. No lymphedema, R chest wall healing, drain in place. CARDIOVASCULAR: Regular rate and rhythm without murmurs. RESPIRATORY: Breath sounds equal bilaterally. No accessory muscle use. GASTROINTESTINAL: Abdomen soft, non-tender, nondistended. EXTREMITIES: L arm swelling mild. MUSCULOSKELETAL: Adequate muscle tone. NEUROLOGICAL: No obvious focal deficit. Awake, alert, and oriented x3. PSYCHIATRIC: Appropriate mood and affect; insight and judgment normal. Assessment/Plan Problem List: (1) HER2-positive carcinoma of right breast ICD Codes: C50.911 - Malignant neoplasm of unspecified site of right female breast Plan: Standard of care to continue antibody therapy (herceptin + perjeta) for a total of 52 weeks. Transition care if transferred to [facility] hospital. --s/p right mastectomy 10/12/17. Discussed continue Herceptin/Perjeta total 52 weeks. We will continue to administer through port and next dose 10/20/17. Last ECHO was normal. Discussed genetic testing, discussed standard guideline for testing with Dr. Bryant. Consult genetic navigator to see if we could test her- possible tomorrow. She is interested because of her daughter Kate. (2) Deep venous thrombosis of left upper extremity ICD Codes: I82.622 - Acute embolism and thrombosis of deep veins of left upper extremity Plan: --on Lovenox 80mg SQ q 12 hours + coumadin, monitor INR 10/12/17. Continue to bridge to therapeutic INR. Cont to check pt/inr in clinic. Assessment 52y/o female with locally advanced HER2/shirley over expressing ER positive right breast cancer currently admitted for psychosis. 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 h/o Chemotherapy induced anemia. Plan 1. Continue Lovenox to Coumadin bridge 2. Genetics navigator to see her tomorrow 3. Next Perjeta/Herceptin due on 10/20. 4. Monitor INR. Alexa Villareal MD October 12, 2017 14:50
[2017-10-12 17:25] VITALS: BP 136/70; PULSE 71; RESP 18; TEMP 97.9; O2SAT 95
[2017-10-12] MEDS: REMOVE OLD NICODERM (NICOTINE) PATCH T-DERMAL SCH (20:28)
[2017-10-13 06:05] VITALS: BP 135/65; PULSE 67; RESP 16; TEMP 97.6; O2SAT 98
[2017-10-13] MEDS: ANASTROZOLE 1 MG TAB PO SCH (09:36)
[2017-10-13] MEDS: HALOPERIDOL 5 MG TAB PO SCH ×2 (09:36→21:46)
[2017-10-13] MEDS: BENZTROPINE MESYLATE 1 MG TAB PO SCH ×2 (09:36→21:46)
[2017-10-13] MEDS: DOCUSATE SODIUM 100 MG CAP PO SCH ×2 (09:36→21:46)
[2017-10-13] MEDS: ENOXAPARIN SODIUM 80 MG/0.8 ML SYRINGE SQ SCH (09:40)
--- NOTE | 2017-10-13 10:15 | HHI.PR ---
Subjective Subjective Notes Resting in bed Eager to get DAVE drain out Objective Vitals/I&O Vital Signs Date Time Temp Pulse Resp B/P (MAP) Pulse Ox O2 Delivery O2 Flow Rate FiO2 10/13/17 06:05 97.6 67 16 135/65 (88) 98 Labs Date/Time Source Procedure Growth Status 08/29/17 20:15 Blood Line Aerobic Blood Culture - Final NO GROWTH IN 5 DAYS Complete 08/29/17 20:15 Blood Line Anaerobic Blood Culture - Final NO GROWTH IN 5 DAYS Complete 08/30/17 14:53 Wound Scalp Gram Stain - Final Complete 08/30/17 14:53 Wound Culture - Final S. Aureus Mrsa Complete Cardiovascular: Regular Lungs: Clear Abdomen: Non-distended, Non-tender Extremities: Other Narrative Exam s/p RIGHT mastectomy---Incision healing nicely; DAVE with serosanguineous drainage A/P Assessment and Plan 52 year old female s/p RIGHT radical mastectomy -DC DAVE drain -Regular diet -GS clear for DC to [facility] when arrangements made -Patient to follow up with Emperatriz Nam/Glaze Maker MARGIE October 13, 2017 10:15
[2017-10-13] MEDS ORDERED: HALOPERIDOL DECANOATE 50 MG/ML VIAL IM ONE (14:45)
--- NOTE | 2017-10-13 14:46 | HHI.PYPN ---
Subjective Chief Complaint: Psychosis Remarks Patient seen and examined. Chart reviewed. Case discussed with nursing staff. On my examination today, the patient is in good spirits. She is looking forward to discharge from the hospital soon. Psychotic symptoms remain well controlled with Haldol. No mood symptoms noted. Denies side effects from medications. No physical complaints. DAVE drain has been pulled. Review of Systems Except as stated in HPI: all other systems reviewed are Neg Mental Status Examination Appearance: Appropriate Consciousness: Alert Orientation: Person, Place Motor Activity: Other (No abnormal motor movements noted) Speech: Unremarkable Language: Adequate Fund of Knowledge: Adequate Attention and Concentration: Adequate Memory: Unremarkable Mood: Appropriate Affect: Appropriate Thought Process & Associations: Intact, Linear Thought Content: Appropriate Hallucination Type: None Delusion Type: None Suicidal Ideation: No Suicidal Plan: No Suicidal Intention: No Homicidal Ideation: No Homicidal Plan: No Homicidal Intention: No Insight: Poor Judgment: Poor Results Labs Date/Time Source Procedure Growth Status 08/29/17 20:15 Blood Line Aerobic Blood Culture - Final NO GROWTH IN 5 DAYS Complete 08/29/17 20:15 Blood Line Anaerobic Blood Culture - Final NO GROWTH IN 5 DAYS Complete 08/30/17 14:53 Wound Scalp Gram Stain - Final Complete 08/30/17 14:53 Wound Culture - Final S. Aureus Mrsa Complete Labs reviewed Vitals/IOs Vital Signs Date Time Temp Pulse Resp B/P (MAP) Pulse Ox O2 Delivery O2 Flow Rate FiO2 10/13/17 06:05 97.6 67 16 135/65 (88) 98 Intake and Output 10/13/17 10/13/17 10/14/17 08:00 16:00 00:00 Intake Total 0 ml Balance 0 ml Assessment & Plan Problem List: (1) Schizophrenia ICD Codes: F20.9 - Schizophrenia, unspecified Assessment & Plan Consent has been obtained for Haldol Decanoate. Initiate Haldol Decanoate 100 mg IM today with plans for booster dose after the weekend to bring the total IM dose to 10-15 times oral daily dose (presently 30mg TDD). Continue oral Haldol supplementation. Instructor [employer] input noted and appreciated. Continue other medications and care as ordered. Justification for Cont. Inpt. Medication changes. Risk for decompensation in less restrictive environment. Discharge Planning Anticipate discharge to facility Monday. Request HC Surrog/Guard Advoc?: Yes Problem Qualifiers (1) Schizophrenia: Qualified Codes: F20.3 - Undifferentiated schizophrenia Fabrice Bryant MD October 13, 2017 14:46
[2017-10-13] MEDS: WARFARIN SOD 7.5 MG TAB PO SCH (15:57)
[2017-10-13] MEDS: NICOTINE 21 MG/24 HR PATCH T-DERMAL PRN (16:11)
[2017-10-13 16:21] LABS: INTERNATIONAL NORMALIZED RATIO 1.2 RATIO; PROTHROMBIN TIME - PATIENT 12.6 SEC (9.8-11.6)
[2017-10-13 18:22] VITALS: BP 127/61; PULSE 87; RESP 16; TEMP 97.5; O2SAT 97
[2017-10-13] MEDS: REMOVE OLD NICODERM (NICOTINE) PATCH T-DERMAL SCH (21:00)
[2017-10-14 06:24] VITALS: BP 132/77; PULSE 72; RESP 15; TEMP 97.6; O2SAT 98
[2017-10-14] MEDS: ANASTROZOLE 1 MG TAB PO SCH (08:38)
[2017-10-14] MEDS: DOCUSATE SODIUM 100 MG CAP PO SCH ×2 (08:38→20:10)
[2017-10-14] MEDS: BENZTROPINE MESYLATE 1 MG TAB PO SCH ×2 (08:38→20:10)
[2017-10-14] MEDS: NICOTINE 21 MG/24 HR PATCH T-DERMAL PRN (08:39)
[2017-10-14] MEDS: ENOXAPARIN SODIUM 80 MG/0.8 ML SYRINGE SQ SCH (08:39)
[2017-10-14] MEDS: HALOPERIDOL 5 MG TAB PO SCH ×2 (08:39→20:11)
[2017-10-14 12:17] LABS: INTERNATIONAL NORMALIZED RATIO 1.3 RATIO; PROTHROMBIN TIME - PATIENT 12.7 SEC (9.8-11.6)
[2017-10-14] MEDS ORDERED: WARFARIN SOD 2 MG TAB PO ONE (16:00)
--- NOTE | 2017-10-14 16:08 | HHI.PYPN ---
Subjective Chief Complaint: Psychosis Remarks Patient was seen and case discussed with nursing. Patient is pleasant and cooperative with exam. No new stressors reported. Behaving well on the unit. Compliant with medications. Eating and sleeping well per nursing Mental Status Examination Appearance: Appropriate Consciousness: Alert Orientation: Person, Place Motor Activity: Other (No abnormal motor movements noted) Speech: Unremarkable Language: Adequate Fund of Knowledge: Adequate Attention and Concentration: Adequate Memory: Unremarkable Mood: Appropriate Affect: Appropriate Thought Process & Associations: Intact, Linear Thought Content: Appropriate Hallucination Type: None Delusion Type: None Suicidal Ideation: No Suicidal Plan: No Suicidal Intention: No Homicidal Ideation: No Homicidal Plan: No Homicidal Intention: No Insight: Poor Judgment: Poor Results Labs Test 10/14/17 11:59 Prothrombin Time 12.7 SEC Prothromb Time International Ratio 1.3 RATIO Date/Time Source Procedure Growth Status 08/29/17 20:15 Blood Line Aerobic Blood Culture - Final NO GROWTH IN 5 DAYS Complete 08/29/17 20:15 Blood Line Anaerobic Blood Culture - Final NO GROWTH IN 5 DAYS Complete 08/30/17 14:53 Wound Scalp Gram Stain - Final Complete 08/30/17 14:53 Wound Culture - Final S. Aureus Mrsa Complete Vitals/IOs Vital Signs Date Time Temp Pulse Resp B/P (MAP) Pulse Ox O2 Delivery O2 Flow Rate FiO2 10/14/17 06:24 97.6 72 15 132/77 (95) 98 Intake and Output 10/14/17 10/14/17 10/15/17 08:00 16:00 00:00 Intake Total 620 ml 360 ml Balance 620 ml 360 ml Assessment & Plan Problem List: (1) Schizophrenia ICD Codes: F20.9 - Schizophrenia, unspecified Assessment & Plan Continue current treatment plan Justification for Cont. Inpt. Patient would decompensate in a less restrictive setting Request HC Surrog/Guard Advoc?: Yes Problem Qualifiers (1) Schizophrenia: Qualified Codes: F20.3 - Undifferentiated schizophrenia Carmelo Velazquez DO October 14, 2017 16:08
[2017-10-14] MEDS: WARFARIN SOD 7.5 MG TAB PO SCH (16:36)
[2017-10-14 18:00] VITALS: BP 151/72; PULSE 89; RESP 15; TEMP 97.4; O2SAT 95
[2017-10-14] MEDS: REMOVE OLD NICODERM (NICOTINE) PATCH T-DERMAL SCH (21:00)
[2017-10-15 06:00] VITALS: BP 172/75; PULSE 73; RESP 18; TEMP 96.2; O2SAT 97
[2017-10-15] MEDS: HALOPERIDOL 5 MG TAB PO SCH ×2 (08:18→20:20)
[2017-10-15] MEDS: DOCUSATE SODIUM 100 MG CAP PO SCH ×2 (08:18→20:19)
[2017-10-15] MEDS: ANASTROZOLE 1 MG TAB PO SCH (08:18)
[2017-10-15] MEDS: NICOTINE 21 MG/24 HR PATCH T-DERMAL PRN (08:18)
[2017-10-15] MEDS: BENZTROPINE MESYLATE 1 MG TAB PO SCH ×2 (08:18→20:20)
[2017-10-15] MEDS: ENOXAPARIN SODIUM 80 MG/0.8 ML SYRINGE SQ SCH (08:19)
[2017-10-15 09:51] LABS: INTERNATIONAL NORMALIZED RATIO 1.7 RATIO
--- NOTE | 2017-10-15 15:27 | HHI.PYPN ---
Subjective Chief Complaint: Psychosis Remarks Patient was seen and case discussed with nursing. Patient is pleasant and cooperative with exam. Compliant with her medications. Looking forward to discharge next week. Mental Status Examination Appearance: Appropriate Consciousness: Alert Orientation: Person, Place Motor Activity: Other (No abnormal motor movements noted) Speech: Unremarkable Language: Adequate Fund of Knowledge: Adequate Attention and Concentration: Adequate Memory: Unremarkable Mood: Appropriate Affect: Appropriate Thought Process & Associations: Intact, Linear Thought Content: Appropriate Hallucination Type: None Delusion Type: None Suicidal Ideation: No Suicidal Plan: No Suicidal Intention: No Homicidal Ideation: No Homicidal Plan: No Homicidal Intention: No Insight: Poor Judgment: Poor Results Labs Test 10/15/17 09:00 Prothrombin Time 17.0 SEC Prothromb Time International Ratio 1.7 RATIO Date/Time Source Procedure Growth Status 08/29/17 20:15 Blood Line Aerobic Blood Culture - Final NO GROWTH IN 5 DAYS Complete 08/29/17 20:15 Blood Line Anaerobic Blood Culture - Final NO GROWTH IN 5 DAYS Complete 08/30/17 14:53 Wound Scalp Gram Stain - Final Complete 08/30/17 14:53 Wound Culture - Final S. Aureus Mrsa Complete Vitals/IOs Vital Signs Date Time Temp Pulse Resp B/P (MAP) Pulse Ox O2 Delivery O2 Flow Rate FiO2 10/15/17 06:00 96.2 73 18 172/75 (107) 97 Intake and Output 10/15/17 10/15/17 10/16/17 08:00 16:00 00:00 Intake Total 480 ml 480 ml Balance 480 ml 480 ml Assessment & Plan Problem List: (1) Schizophrenia ICD Codes: F20.9 - Schizophrenia, unspecified Assessment & Plan Continue current treatment plan Justification for Cont. Inpt. Patient would decompensate in a less restrictive setting Request HC Surrog/Guard Advoc?: Yes Problem Qualifiers (1) Schizophrenia: Qualified Codes: F20.3 - Undifferentiated schizophrenia Carmelo Velazquez DO October 15, 2017 15:27
[2017-10-15] MEDS: WARFARIN SOD 7.5 MG TAB PO SCH (15:52)
[2017-10-15 18:10] VITALS: BP 158/81; PULSE 88; RESP 18; TEMP 97.8; O2SAT 97
[2017-10-15] MEDS: REMOVE OLD NICODERM (NICOTINE) PATCH T-DERMAL SCH (20:20)
[2017-10-16 06:06] VITALS: BP 113/64; PULSE 65; RESP 15; TEMP 97.9; O2SAT 96
[2017-10-16 08:58] LABS: INTERNATIONAL NORMALIZED RATIO 1.9 RATIO; PROTHROMBIN TIME - PATIENT 19.5 SEC (9.8-11.6)
[2017-10-16] MEDS: ANASTROZOLE 1 MG TAB PO SCH (09:39)
[2017-10-16] MEDS: HALOPERIDOL 5 MG TAB PO SCH (09:39)
[2017-10-16] MEDS: BENZTROPINE MESYLATE 1 MG TAB PO SCH (09:39)
[2017-10-16] MEDS: DOCUSATE SODIUM 100 MG CAP PO SCH (09:39)
[2017-10-16] MEDS: ENOXAPARIN SODIUM 80 MG/0.8 ML SYRINGE SQ SCH (09:44)
[2017-10-16] MEDS: NICOTINE 21 MG/24 HR PATCH T-DERMAL PRN (09:46)
[2017-10-16] MEDS ORDERED: DOCU1CAP39 PO (10:01)
[2017-10-16] MEDS ORDERED: HALO5TAB PO (10:01)
[2017-10-16] MEDS ORDERED: ANAS1 PO (10:01)
[2017-10-16] MEDS ORDERED: ENOX80P SQ (10:01)
[2017-10-16] MEDS ORDERED: HALO100I IM (10:01)
[2017-10-16] MEDS ORDERED: Benztropine PO (10:01)
[2017-10-16] MEDS ORDERED: COUM7.5T PO (10:01)
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
[2017-10-16] MEDS ORDERED: HALOPERIDOL DECANOATE 50 MG/ML VIAL IM ONE (12:00)
[2017-10-20] MEDS ORDERED: LORazepam 0.5 MG TAB PO ONE (14:00)
[2017-10-20] MEDS ORDERED: PERTUZUMAB IV ONE (15:00)
[2017-10-20] MEDS ORDERED: SODIUM CHLOR 0.9% IV ONE ×2 (15:00→16:00)
[2017-10-20] MEDS ORDERED: TRASTUZUMAB IV ONE (16:00)
[2017-11-10] MEDS ORDERED: LORazepam 0.5 MG TAB PO ONE (14:00)
[2017-11-10] MEDS ORDERED: SODIUM CHLOR 0.9% IV ONE ×2 (15:00→16:00)
[2017-11-10] MEDS ORDERED: PERTUZUMAB IV ONE (15:00)
[2017-11-10] MEDS ORDERED: TRASTUZUMAB IV ONE (16:00)
== END 2017-10-16 14:00 | DRG 885 ==
LOC: H4EA 20:10 → UNDODISIN 09-22 06:40 → H4EA 09-22 14:45
PROVIDERS: ADMIT Psychiatry & Neurology Psychiatry; ATTEND Psychiatry & Neurology Psychiatry
DX: F20.3 Undifferentiated schizophrenia (principal); C77.9 Secondary and unspecified malignant neoplasm of lymph node, unspecified; I82.A12 Acute embolism and thrombosis of left axillary vein; C50.911 Malignant neoplasm of unspecified site of right female breast; Z59.0 Homelessness; L02.414 Cutaneous abscess of left upper limb; Z91.14 Patient's other noncompliance with medication regimen; I82.B12 Acute embolism and thrombosis of left subclavian vein; I82.612 Acute embolism and thrombosis of superficial veins of left upper extremity; Z91.410 Personal history of adult physical and sexual abuse; Z17.0 Estrogen receptor positive status [ER+]; F17.200 Nicotine dependence, unspecified, uncomplicated; E87.6 Hypokalemia; B95.62 Methicillin resistant Staphylococcus aureus infection as the cause of diseases classified elsewhere; H91.90 Unspecified hearing loss, unspecified ear; L03.031 Cellulitis of right toe; R04.0 Epistaxis; K59.00 Constipation, unspecified; Z79.811 Long term (current) use of aromatase inhibitors; F41.9 Anxiety disorder, unspecified
CPT/HCPCS: 73660; 76882; 80048; 80053; 80061; 80069; 82247; 82248; 82607; 83036; 83735; 84100; 84132; 84703; 85007; 85025; 85027; 85379; 85610; 85730; 86403; 87040; 87070; 87147; 87186; 87205; 93308; 93971; J0131; J0690; J1100; J1170; J1626; J1631; J1642; J1650; J2060; J3480; J7030; J7050; J7060; J9267; J9306; J9355; Q0163

== ENCOUNTER 2017-09-22 06:54 | Day surgery (SDC) | payer OTHER ==
[~2017-09-22] VITALS: Ht 167.6 cm; Wt 84.0 kg
[2017-09-22] MEDS ORDERED: BUPIVACAINE/EPINEPHRINE 0.25% 50 ML VIAL ONE (07:06)
[2017-09-22] MEDS ORDERED: SODIUM CHLORIDE 0.9% FLUSH 10 ML FLUSH IV FLUSH PRN (08:30)
[2017-09-22] MEDS ORDERED: DO NOT ADM ANY ANTICOAGULANT DRUGS PRN (09:57)
[2017-09-22] MEDS ORDERED: MIDAZOLAM HCL 2 MG/2 ML VIAL ONE (10:03)
[2017-09-22] MEDS ORDERED: *morphine SULFATE 4 MG/ML PERIprocedure ONLY ONE ×2 (10:06→10:29)
[2017-09-22] MEDS ORDERED: ONDANSETRON HCL 4 MG/2 ML VIAL IV PUSH PRN (10:15)
[2017-09-22] MEDS ORDERED: Post-op Orders (for Pharmacy) XX ONE (10:15)
[2017-09-22] MEDS ORDERED: ACETAMINOPHEN/HYDROcodone 325 MG/5 MG TAB PO PRN (10:15)
[2017-09-22] MEDS ORDERED: ACETAMINOPHEN/HYDROcodone 325 MG/7.5 MG TAB PO PRN (10:15)
[2017-09-22] MEDS ORDERED: MORPHINE SULFATE 2 MG/ML SYRINGE IV PUSH PRN (10:15)
[2017-09-22] MEDS ORDERED: BENZOCAINE 20% ORAL SPR 60 ML CAN MT PRN (10:15)
[2017-09-22] MEDS ORDERED: NALOXONE HCL 0.4 MG/ML AMP IV PUSH PRN (10:15)
--- NOTE | 2017-09-22 10:51 | MP ---
cc: Onel Sewell MD DATE OF OPERATION: 09/22/2017 PREOPERATIVE DIAGNOSIS: Right breast carcinoma, status post neoadjuvant chemotherapy. POSTOPERATIVE DIAGNOSIS: Right breast carcinoma, status post neoadjuvant chemotherapy. PROCEDURE PERFORMED: Right modified radical mastectomy. ATTENDING SURGEON: Onel Sewell MD. PAINTINGS CONSERVATOR: Staff. ANESTHESIA: General and local anesthetic. BLOOD LOSS: 50 mL. COMPLICATIONS: None. FINDINGS: Multiple palpable right axillary lymph nodes all completely removed with level 1 and 2 dissection. INDICATIONS FOR PROCEDURE: The patient is a 52-year-old female diagnosed several months ago with a large locally advanced, clinically stage III right breast carcinoma. The patient underwent a Port-A-Cath placement and chemotherapy for stage III cancer per recommendations and direction by Dr. Villareal. The patient has had a good response and tolerated this well. After chemotherapy is complete, the patient was recommended to undergo a modified radical mastectomy. I discussed with the patient, as well as with the patient's daughter, who is her medical surrogate that the patient was a poor candidate for breast conservation, as well as discussing treatment options including right modified radical mastectomy. Once all questions were answered to the daughter's satisfaction, the medical surrogate and she signed consent for a right modified radical mastectomy for the patient. PROCEDURE NOTE: The patient was taken to the operating room, placed in a supine position and placed under general endotracheal anesthesia. The patient's right axilla, arm and breast were prepped and draped in a sterile fashion. Time-out was performed. Local anesthetic was instilled as a field type block around the right axilla and right breast. We marked the superior and inferior lines for the planned right mastectomy with a marking pen. We excised both of these with a 10 blade scalpel followed by Bovie electrocautery. We used the Bovie electrocautery to make superior and inferior skin flaps taking care to take all of the breast tissue off of the subcutaneous tissue. We brought this up to the clavicle, down to the inframammary fold and lateral to the pectoralis and medial to the breast at the level of the sternum. We used Bovie electrocautery to take the pectoralis fascia off the pectoralis muscle completely. Then with the specimen, we continued our dissection to the right axilla. I made a skin flap under the axillary hairline with the Bovie electrocautery and used cautery as well as blunt dissection to take the axillary contents 1 and 2. The small perforating veins from the axillary vein into the axilla were tied off with 3-0 Vicryl sutures. We took care around the long thoracic and thoracodorsal nerve as at the end of the case, these were stimulated delicately with the DeBakey's and had a good response. We marked the specimen with a black stitch lateral for right modified radical mastectomy, passed this off for permanent processing by pathology. We then assured excellent hemostasis, irrigated out the chest wall and axilla with sterile saline. We placed a 19-[place] round Jorge drain in the chest wall and axilla in an S-type pattern through a separate stab incision. We sewed this drain in place with a 3-0 nylon suture. We closed the skin flaps with 3-0 deep dermal buried Vicryl sutures. We closed the skin with 4-0 Monocryl and Dermabond. Once the Dermabond had appropriately dried, the drain was placed to bulb suction and breast fluffs and Rashad wrap were placed on the patient. The patient tolerated the procedure well. No apparent complications. All counts were correct and I was present and scrubbed for the entire procedure. Onel Sewell MD AWG/MARINA , 10:25 AM , 10:50 AM
[2017-09-22 11:00] VITALS: BP 123/77; PULSE 63; RESP 18; TEMP 97.8; O2SAT 100
[2017-09-22] MEDS ORDERED: GLYCOPYRROLATE 1 MG/5 ML SYRINGE IV PUSH ONE (12:00)
[2017-09-22] MEDS ORDERED: ONDANSETRON HCL 4 MG/2 ML VIAL IV ONE (12:00)
[2017-09-22] MEDS ORDERED: ceFAZolin INJ 1,000 MG VIAL IV ONE (12:00)
[2017-09-22] MEDS ORDERED: DEXAMETHASONE SOD PHOS 4 MG/ML VIAL IV ONE (12:00)
[2017-09-22] MEDS ORDERED: NEOSTIGMINE 5 MG/5 ML SYRINGE IV PUSH ONE (12:00)
[2017-09-22] MEDS ORDERED: LIDOCAINE HCL 1% PF 5 ML SYRINGE OTHER ONE (12:00)
[2017-09-22] MEDS ORDERED: PROPOFOL 200 MG/20 ML AMP IV ONE (12:00)
[2017-09-22] MEDS ORDERED: ROCURONIUM INJ 50 MG/5 ML SYRINGE IV PUSH ONE (12:00)
== END 2017-09-22 11:15 ==
LOC: HSDC 06:54
PROVIDERS: ATTEND Surgery
DX: C50.911 Malignant neoplasm of unspecified site of right female breast (principal); C77.3 Secondary and unspecified malignant neoplasm of axilla and upper limb lymph nodes; Z17.0 Estrogen receptor positive status [ER+]; I82.722 Chronic embolism and thrombosis of deep veins of left upper extremity; Z92.21 Personal history of antineoplastic chemotherapy
CPT/HCPCS: 00404; 19307; 88309; J0690; J1100; J2250; J2270; J2405; J2710; J3010

== ENCOUNTER 2018-02-01 19:41 | Inpatient (IN) ==
--- NOTE | 2018-02-01 20:08 | ED ---
HPI General Chief complaint: Skin/Abscess/Foreign Body Stated complaint: Poss Infection/Psych Eval Time Seen by Provider: 02/01/18 19:47 Source: patient and EMS Mode of arrival: EMS Limitations: no limitations History of Present Illness HPI narrative: The patient is 52 years old. She lives in [facility]. She developed swelling erythema over the left face over the past 2 days. She believes is related to exposure to urine and/or feces which she states is abundant in her [facility]. She states the [facility] is unsanitary and therefore she has the facial cellulitis. Patient is a [place] because she verbalized to the fire department personnel that she has suicidal ideation. She has a history of psychiatric admission. She reports she was hoping to be kept in the inpatient psychiatry unit for a few days and then dispositioned into a different [facility]. When asked if she has a plan the patient says no. Patient denies intent to harm others. No fever. No diplopia. No pain with range of motion of the eyes. Onset (ago): day(s) Location: face Severity: mild Pain Consistency: constant Exacerbating factors: palpation Related Data Home Medications Medication Instructions Recorded Confirmed anastrozole 1 mg PO DAILY 02/01/18 02/01/18 apixaban [Eliquis] 5 mg PO BID 02/01/18 02/01/18 benztropine 0.5 mg PO HS 02/01/18 02/01/18 haloperidol 5 mg PO BID 02/01/18 02/01/18 Allergies Allergy/AdvReac Type Severity Reaction Status Date / Time No Known Allergies Allergy Unverified 02/01/18 20:10 Review of Systems ROS: all other systems reviewed are negative Constitutional Denies fever(s) PMFSH Medical History Medical History Anxiety (Acute) Bipolar 1 disorder (Acute) Blood clot in vein (Acute) Breast cancer (Acute) Depression (Acute) Schizoaffective disorder (Acute) Social History Social History Substance History: No History of Abuse Second Hand Smoke Exposure: No Smoking Status: Former smoker How Often Do You Have a Drink Containing Alcohol: Never Exam Narrative Exam Narrative: GENERAL: 52-year-old female pleasant well-nourished well- developed, no acute distress SKIN: Focused skin assessment warm/dry. Erythema induration tenderness and warmth about the left forehead and left mormon distribution of left maxillary face. No fluctuance. No proptosis. HEAD: Atraumatic. Normocephalic. EYES: Pupils equal and round. No scleral icterus. No injection or drainage. ENT: No nasal bleeding or discharge. Mucous membranes pink and moist. NECK: Trachea midline. No JVD. CARDIOVASCULAR: Regular rate and rhythm. No murmur appreciated. RESPIRATORY: No accessory muscle use. Clear to auscultation. Breath sounds equal bilaterally. GASTROINTESTINAL: Abdomen soft, non-tender, nondistended. Hepatic and splenic margins not palpable. MUSCULOSKELETAL: No obvious deformities. No clubbing. No cyanosis. No edema. NEUROLOGICAL: Awake and alert. No obvious cranial nerve deficits. Motor grossly within normal limits. Normal speech. PSYCHIATRIC: Appropriate mood and affect; insight and judgment normal. Course Initial Documented Vital Signs Temperature 98.4 F 02/01/18 19:55 Pulse Rate 92 H 02/01/18 19:55 Respiratory Rate 16 02/01/18 19:55 Blood Pressure 140/79 02/01/18 19:55 Pulse Oximetry 97 02/01/18 19:55 Last Documented Vital Signs Temperature 98.4 F 02/01/18 19:55 Pulse Rate 92 H 02/01/18 19:55 Respiratory Rate 16 02/01/18 19:55 Blood Pressure 140/79 02/01/18 19:55 Pulse Oximetry 97 02/01/18 19:55 Medical Decision Making MDM Narrative Medical decision making narrative: Patient has a left face cellulitis and will be prescribed antibiotics. The patient is here [place], having been transferred from [place], because she verbalized suicidal ideation to our department personnel. During my exam she states she has no plan to harm herself. She does not do to harm others. She states she was hoping to be admitted to our psych floor and then dispositioned into a different long-term care facility. She arrives with several back containing personal belongings. Psychiatric screen is pending. As of 9:10 PM the patient is medically clear for evaluation by psychiatry service. Clindamycin prescription written here. I spoke with the psych screening service. It seems unlikely as patient has a valid psychiatric emergency. Admission to the hospital for psychiatric treatment is considered low probability. In the event that the psych screening service agrees we can discharge the patient. Pt will be admitted to psych service per request Dr Neff. Medical Screen Exam Complete: Yes Emergency Medical Condition: Yes Lab Data Lab results reviewed: Yes I reviewed the patient's lab results. Result diagrams: 02/01/18 20:00 02/01/18 20:00 Lab Results 02/01/18 02/01/18 Range/Units 20:00 20:00 WBC 11.6 H (4.0-11.0) th/mm3 RBC 4.69 (4.00-5.30) mil/mm3 Hgb 13.5 (11.6-15.3) gm/dL Hct 41.2 (35.0-46.0) % MCV 87.9 (80.0-100.0) fL MCH 28.9 (27.0-34.0) pg MCHC 32.8 (32.0-36.0) % RDW 14.3 (11.6-17.2) % Plt Count 274 (150-450) th/mm3 MPV 8.7 (7.0-11.0) fL Neut % (Auto) 71.9 H (16.0-70.0) % Lymph % (Auto) 18.5 (9.0-44.0) % [place] % (Auto) 7.4 (0.0-8.0) % Eos % (Auto) 1.8 (0.0-4.0) % Baso % (Auto) 0.4 (0.0-2.0) % Neut # (Auto) 8.3 H (1.8-7.7) th/mm3 Lymph # (Auto) 2.1 (1.0-4.8) th/mm3 [place] # (Auto) 0.9 (0.0-0.9) th/mm3 Eos # (Auto) 0.2 (0.0-0.4) th/mm3 Baso # (Auto) 0.0 (0.0-0.2) th/mm3 WBC Differential . Differential Comment Auto diff final Sodium 140 (136-145) meq/L Potassium 3.7 (3.5-5.1) meq/L Chloride 106 (98-107) meq/L Carbon Dioxide 24.7 (21.0-32.0) meq/L Anion Gap 9 (5-15) meq/L BUN 15 (7-18) mg/dL Creatinine 0.60 (0.50-1.00) mg/dL Estimated GFR Greater than 89 (>89) mL/min Random Glucose 103 (74-106) mg/dL Calcium 9.4 (8.5-10.1) mg/dL Total Bilirubin 1.0 (0.2-1.0) mg/dL AST 27 (15-37) U/L ALT 36 (10-53) U/L Alkaline Phosphatase 94 (45-117) U/L Total Protein 7.4 (6.4-8.2) g/dL Albumin 3.4 (3.4-5.0) g/dL TSH 1.050 (0.358-3.740) uIU/mL TSH 1.050 Discharge Plan Discharge Disposition Patient Disposition: [facility] [address] Patient Discharge Details Diagnosis: Cellulitis, Suicidal ideation Physicians Team ED Provider: Omega Sosa Primary Care Provider: Joy Coates Rxs /Orders / Referrals /Forms Prescriptions: No Action anastrozole 1 mg Tablet 1 mg PO DAILY RF: 0 benztropine 0.5 mg Tablet 0.5 mg PO HS RF: 0 haloperidol 5 mg Tablet 5 mg PO BID RF: 0 apixaban [Eliquis] 5 mg Tablet 5 mg PO BID RF: 0 Status ED Status: Admitted Patient
[2018-02-01 20:16] LABS: Baso % (Auto) 0.4 % (0.0-2.0); Eos # (Auto) 0.2 th/mm3 (0.0-0.4); Eos % (Auto) 1.8 % (0.0-4.0); Hematocrit 41.2 % (35.0-46.0); Hemoglobin 13.5 gm/dL (11.6-15.3); Lymph # (Auto) 2.1 th/mm3 (1.0-4.8); Lymph % (Auto) 18.5 % (9.0-44.0); Mean Corpuscular HGB Conc 32.8 % (32.0-36.0); Mean Corpuscular Hemoglobin 28.9 pg (27.0-34.0); Mean Corpuscular Volume 87.9 fL (80.0-100.0); Mean Platelet Volume 8.7 fL (7.0-11.0); Mono # (Auto) 0.9 th/mm3 (0.0-0.9); Mono % (Auto) 7.4 % (0.0-8.0); Neut # (Auto) 8.3 th/mm3 (1.8-7.7); Neut % (Auto) 71.9 % (16.0-70.0); Platelet Count 274 th/mm3 (150-450); Red Blood Count 4.69 mil/mm3 (4.00-5.30); Red Cell Distribution Width 14.3 % (11.6-17.2); White Blood Count 11.6 th/mm3 (4.0-11.0)
[2018-02-01 20:38] LABS: Albumin 3.4 g/dL (3.4-5.0); Anion Gap 9 meq/L (5-15); Aspartate Aminotransferase 27 U/L (15-37); Blood Urea Nitrogen 15 mg/dL (7-18); Calcium 9.4 mg/dL (8.5-10.1); Carbon Dioxide 24.7 meq/L (21.0-32.0); Chloride 106 meq/L (98-107); Glomerular Filtration Rate Greater Than 89 mL/min (>89); Glucose,Random 103 mg/dL (74-106); Potassium 3.7 meq/L (3.5-5.1); Sodium 140 meq/L (136-145)
[2018-02-01 20:49] LABS: Alanine Aminotransferase 36 U/L (10-53); Alkaline Phosphatase 94 U/L (45-117); Total Protein 7.4 g/dL (6.4-8.2)
[2018-02-01] MEDS ORDERED: Aluminum/Magnesium/Simethacone Susp 30 ML UDC PO PRN (22:14)
[2018-02-02] MEDS: Acetaminophen 325 MG Tablet PO PRN ×3 (00:42→23:39)
[2018-02-02 05:18] LABS: Amphetamine Screen,Urine Neg (Neg); Barbiturate Screen,Urine Neg (Neg); Cannabinoid Screen,Urine Neg (Neg); Cocaine Screen,Urine Neg (Neg)
[2018-02-02 05:19] LABS: Opiate Screen,Urine Neg (Neg)
[2018-02-02] MEDS: Anastrozole 1 MG Tablet PO SCH (09:03)
[2018-02-02] MEDS: Haloperidol 5 MG Tablet PO SCH ×2 (09:04→20:10)
[2018-02-02] MEDS ORDERED: Benztropine Inj 2 MG/2 ML Ampul IM PRN (11:17)
--- NOTE | 2018-02-02 11:24 | P.HPPSY ---
Provisional Diagnosis Admission Date: February 01, 2018 22:20 [place] I.: 1. Schizophrenia, paranoid type 2. Suspected malingering for mcc [place] II.: Deferred Competence Certification of Person's Competence To Provide Express and Informed Consent I have personally examined Leena Pelletier, a person being served at [facility] on, February 02, 2018 1118. Express and informed consent means consent voluntarily given in writing, by a competent person, after sufficient explanation and disclosure of the subject matter involved to enable the person to make a knowing and willful decision without any element of force, fraud, deceit, duress, or other form of constraint or coercion. This person is 18 years of age or older, is not now known to be incompetent to consent to treatment with a guardian advocate, and does not have a health care surrogate or proxy currently making medical treatment decisions. I have found this person to be one of the following: [X] Competent to provide express and informed consent, as defined above, for voluntary admission to this facility and is competent to provide express and informed consent for treatment. He/she has the consistent capacity to make well reasoned, willful, and knowing decisions concerning his or her medical or mental health treatment. The person fully and consistently understands the purpose of the admission for examination/placement and is fully capable of personally exercising all rights assured [place] Incompetent to provide express and informed consent to voluntary admission, and this is incompetent to provide express and informed consent to treatment. The person must be transferred to involuntary status and a petition for a guardian advocate filed with the Circuit Court. [] Refusing to provide express and informed consent to voluntary admission but is competent to provide express and informed consent for treatment. The person must be discharged or transferred to involuntary status. Form shall be completed within 24 hours of a person's arrival at the receiving facility and filed in the clinical record of each person: 1. Admitted on a voluntary basis 2. Permitted to provide express and informed consent to his/her own treatment 3. Allowed to transfer from involuntary to voluntary status 4. Prior to permitting a person to consent to his or her own treatment after having been previously found incompetent to consent to treatment. History of Present Illness Capacity: Has capacity Chief Complaint: "I want a better place to live." History of Present Illness: Ms. Pelletier is a 52-year-old female with a history of schizophrenia who presented to the emergency department voluntarily complaining of facial swelling, found to have possible cellulitis. Patient reportedly believes that she acquired this cellulitis secondary to unsanitary living conditions at her assisted living facility and told the ED provider "she was hoping to be kept in the inpatient psychiatry unit for a few days and then dispositioned into a different [facility]." Apparently she also verbalized some suicidal ideation to the fire department per ED provider notes. Patient is well-known to the psychiatric service here from multiple previous psychiatric hospitalizations. She was most recently discharged from an extended hospitalization under my care in October of this year. Electronic medical record reviewed. Patient seen and examined with counselor and nurse. Chart reviewed. Case discussed with nursing staff and with counselor. On my examination today, the patient greets me with, "hello, I'm back." She tells me that she came in because "I have an infection in my eye from all the urine in the house." She elaborates to say that it "comes from the pee and the poop and the phlegm" that is in the facility where she resides. She accuses one resident in particular, Christen, of releasing these fluids into the environment and of "rubbing her butt on the chairs." She has no homicidal ideation. She further says that "the water stinks." She says that as a consequence of her current living situation "I'm very depressed, upset and suicidal." When I ask her to elaborate her suicide plan, she says that she will wander off from her facility and feels that this would be a suicidal action because she cannot take care of herself. She claims to "hear voices, people talking, people giving me info about what's going on." No command auditory hallucinations to hurt self or others. She tells me "I want another place to live on the bus line." Remainder of the psychiatric ROS is negative. No acute physical complaints. Past psychiatric history: The patient has a history of schizophrenia. She obtains outpatient psychiatric care at [facility]. Most recent psychiatric admission was reportedly here at [place]. She denies a history of suicide attempts. Family history: The patient reports that her brother has substance use issues. Chemical dependency history: Patient denies any abuse of drugs or alcohol. She is a former smoker. Social history: The patient resides in an [facility]. She has "13-1/2 years" of schooling. 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 She is presently disabled. She has not recently spoken with her daughter saying that daughter will not speak with her. She denies any legal issues. Denies any access to guns or firearms. She believes in God but does not go to sabianism she tells me. No reported trauma history. I called over to [facility] to get the most recent medication list. Patient receives Haldol Decanoate injections 100 mg IM, last on 01/16/2018. She also receives Cogentin 0.5 mg at bedtime. - Inpatient Certification I certify that the inpatient services were ordered in accordance with Medicare regulations governing the order. This includes certification that hospital inpatient services are reasonable and necessary and in the case of services not specified as inpatient-only under 42 CFR 419.22(n), that they are appropriately provided as inpatient services in accordance to with the 2-midnight benchmark under 43 CFR 412.3(e) I certify that inpatient psychiatric hospital services are medically necessary. Evaluation and treatment and/or diagnostic testing are expected to improve the patient's condition. The patient needs on a daily basis, active treatment furnished directly by or requiring the supervision of inpatient psychiatric facility personnel. Estimated Total Length of Stay (Days): 5 (3-5) Plans for Post Hospital Care: Not yet determined Review of Systems All other systems reviewed negative except as stated in HPI [facility] - History History Provided By: Patient - Medical History Medical History: Medical History (Last Updated 02/01/18 @ 20:09 by Abby Richardson) Anxiety Bipolar 1 disorder Blood clot in vein Breast cancer Depression Schizoaffective disorder - Tobacco History Second Hand Smoke Exposure: No Tobacco Use In Past 30 Days: No Smoking Status: Former smoker - Alcohol History How Often Do You Have a Drink Containing Alcohol: Never - Substance Use History Substance History: No History of Abuse - Immunization History Tetanus Immunization: >5 Years Hx Influenza Vaccine This Season: Unable to Assess Quality Measures - Patient Strengths Patient's strengths (minimum of 2): Able to access clinical care. Verbally fluent. Medications and Allergies Active Medications: Active Medications Acetaminophen (Tylenol) 650 mg PO Q4H PRN PRN Reason: Pain 1-5 or Temp >101F Last Admin: 02/02/18 09:29 Dose: 650 mg Al Hydrox/Mg Hydrox/Simethicone (Mag-Al Plus Susp Liq) 30 ml PO Q6H PRN PRN Reason: DYSPEPSIA Al Hydroxide/Mg Hydroxide (Milk Of Magnesia Liq) 30 ml PO Q12H PRN PRN Reason: Mild Constipation Anastrozole (Arimidex) 1 mg PO DAILY COUNTS INCLUDE 234 BEDS AT THE [facility] Last Admin: 02/02/18 09:03 Dose: 1 mg Apixaban (Eliquis) 5 mg PO BID COUNTS INCLUDE 234 BEDS AT THE [facility] Last Admin: 02/02/18 09:03 Dose: 5 mg Benztropine Mesylate (Cogentin) 0.5 mg PO HS COUNTS INCLUDE 234 BEDS AT THE [facility] Benztropine Mesylate (Cogentin Inj) 1 mg IM Q12HR PRN PRN Reason: EPS, unable to take PO Haloperidol (Haldol) 5 mg PO BID COUNTS INCLUDE 234 BEDS AT THE [facility] Hydroxyzine HCl (Atarax) 50 mg PO Q6H PRN PRN Reason: ANXIETY Melatonin (Melatonin) 5 mg PO HS PRN PRN Reason: INSOMNIA Allergies Allergy/AdvReac Type Severity Reaction Status Date / Time No Known Allergies Allergy Unverified 02/01/18 20:10 Home Medications Medication Instructions Recorded Confirmed Type anastrozole 1 mg PO DAILY 02/01/18 02/01/18 History apixaban [Eliquis] 5 mg PO BID 02/01/18 02/01/18 History benztropine 0.5 mg PO HS 02/01/18 02/01/18 History haloperidol 5 mg PO BID 02/01/18 02/01/18 History Results - Labs CBC & Chem 7: 02/01/18 20:00 02/01/18 20:00 Labs: Laboratory Results - last 24 hr 02/01/18 02/01/18 02/02/18 20:00 20:00 04:50 WBC 11.6 H RBC 4.69 Hgb 13.5 Hct 41.2 MCV 87.9 MCH 28.9 MCHC 32.8 RDW 14.3 Plt Count 274 MPV 8.7 Neut % (Auto) 71.9 H Lymph % (Auto) 18.5 [place] % (Auto) 7.4 Eos % (Auto) 1.8 Baso % (Auto) 0.4 Neut # (Auto) 8.3 H Lymph # (Auto) 2.1 [place] # (Auto) 0.9 Eos # (Auto) 0.2 Baso # (Auto) 0.0 WBC Differential . Differential Comment Auto diff final Sodium 140 Potassium 3.7 Chloride 106 Carbon Dioxide 24.7 Anion Gap 9 BUN 15 Creatinine 0.60 Estimated GFR Greater than 89 Random Glucose 103 Calcium 9.4 Total Bilirubin 1.0 AST 27 ALT 36 Alkaline Phosphatase 94 Total Protein 7.4 Albumin 3.4 TSH 1.050 Urine Opiates Screen Neg Ur Barbiturates Screen Neg Ur Amphetamines Screen Neg U Benzodiazepines Scrn Neg Urine Cocaine Screen Neg U Cannabinoids Screen Neg Labs reviewed. Mild leukocytosis of facial cellulitis. Exam Vital signs: Vital Signs 02/01/18 19:55 02/01/18 23:00 02/02/18 06:41 Temperature 98.4 F 97.4 F L 98.3 F Pulse Rate 92 H 95 H 85 Respiratory Rate 16 18 16 Blood Pressure 140/79 141/84 H 128/69 Pulse Oximetry 97 97 95 02/02/18 10:36 Temperature Pulse Rate Respiratory Rate 18 Blood Pressure Pulse Oximetry Intake & Output 02/01/18 02/02/18 02/02/18 18:59 06:59 18:59 Weight 92.9 kg Other: Weight On Admission 92.9 kg Narrative: Physical examination was completed by ED provider. On my examination today, the patient does not appear to be in physical distress. She does exhibit facial swelling involving the left cheek and around her left eye, but there does not appear to be any eye involvement. There is no evidence of injection or restriction of movement of the globe of the left eye. There is no purulence or drainage. No motor abnormalities. Laboratories and vital signs reviewed. Mental Status Examination Appearance: Appropriate Consciousness: Alert Orientation: x4 Motor Activity: Normal gait Speech: Unremarkable Language: Adequate Fund of Knowledge: Adequate Attention and Concentration: Adequate Memory: Unremarkable (Intact on clinical exam) Mood: Other ("Depressed") Affect: Blunt (Not particularly dysphoric) Thought Process & Associations: Intact, Logical, Linear Thought Content: Hallucinations Hallucination Type: Auditory (Claims auditory hallucinations as noted above. Does not appear internally stimulated.) Delusion Type: Other (It is possible that patient's concerns about facility are delusional in nature, although they may also be at least partially reality based.) Suicidal Ideation: Yes Suicidal Plan: Yes (To wander off from her facility) Suicidal Intention: No (No reported urge to hurt self on inpatient unit.) Homicidal Ideation: No Homicidal Plan: No Homicidal Intention: No Insight: Fair Judgment: Impulsive Assessment and Plan - Assessment (1) Schizophrenia Code(s): F20.9 - Schizophrenia, unspecified Status: Acute - Plan Plan: 52-year-old female with psychiatric history as detailed above who is presently voluntarily admitted to the inpatient psychiatric unit. On my examination today , the patient says that she is displeased with her current assisted living facility and wants to be placed in a new facility. She says that as a consequence of her reportedly unacceptable living conditions, she is experiencing depression and suicidal ideation with plan to wander off from her facility and put herself in harm's way in so doing. Although the patient has a history of psychotic illness, I have a strong suspicion that current psychiatric presentation is malingered for the purpose of obtaining new mcc as is the patient's stated goal. I do think there is a possibility that she would enact her "suicide" plan if we were simply to discharge her back to her referring facility, and so I think it is the most prudent course of action at present to retain the patient on the unit through the weekend to see if the communications planner in conjunction with patient's outpatient care team can arrange for new placement as she asks. Admit inpatient. Voluntary status. I will initiate oral Haldol 5 mg twice daily as there does seem to be at least a mild delusional component to the patient's concerns about her facility, although as noted above there may also be at least a component of basis in reality. We might consider administering additional Haldol decanoate. Atarax as needed for anxiety. Continue scheduled Cogentin and provide additional Cogentin as needed for EPS. Melatonin as needed for sleep. Hospitalist consult. Continue clindamycin for facial cellulitis. Vitals every shift. Counselor to see. Disposition planning. Estimated length of stay: 3-5 days. Justification for Continued Inpatient Stay: See above Discharge Planning: Possibly new placement. To be determined. Request Healthcare Surrogate/Guardian Advocate?: No (1) Schizophrenia Qualifiers: Schizophrenia type: paranoid schizophrenia Qualified Code(s): F20.0 - Paranoid schizophrenia
--- NOTE | 2018-02-02 14:46 | P.CON ---
History of Present Illness Service: [facility] Consult date: 02/02/18 Requesting Physician: Fabrice Bryant Reason for Consult: Cellulitis Primary Care Provider: Joy Coates Family Provider: Joy Coates Chief Complaint: "Left Facial Infection" History of Present Illness: Patient is a 52-year-old female from [facility] with past medical history of breast cancer, DVT of the left upper arm, status post mastectomy who initially came in to the hospital for evaluation of left facial swelling and erythema. She verbalized with the fire department personnel that she has suicidal ideation she is not admitted to the psychiatry unit for further evaluation. Consulted for assistance with management of cellulitis. Patient seen and examined today. Facial swelling noted. States that she has been exposed to urine and feces in her place where she lives that she has left forehead and face infection. States it has been painful and hurting her left eye with no change in vision but having difficulty seeing as it is partially closed. Patient is hard of hearing. She denies any fevers, chills, nausea, vomiting, diarrhea. Denies any shortness of breath or dyspnea, denies headaches , dizziness, chest pain, palpitations Review of Systems All other systems reviewed negative except as stated in HPI PMFSH - History History Provided By: Patient - Medical History Medical History: Medical History (Last Updated 02/01/18 @ 20:09 by Abby Richardson) Anxiety Bipolar 1 disorder Blood clot in vein Breast cancer Depression Schizoaffective disorder - Surgical History Surgical History: Surgical History (Last Updated 02/02/18 @ 15:15 by MARGIE De La Cruz) H/O right mastectomy History of mandibular surgery - Family History Family History: Family History (Last Updated 02/02/18 @ 15:16 by MARGIE De La Cruz) Father Heart attack Colon cancer - Tobacco History Second Hand Smoke Exposure: No Tobacco Use In Past 30 Days: No Smoking Status: Former smoker - Alcohol History How Often Do You Have a Drink Containing Alcohol: Never - Substance Use History Substance History: No History of Abuse - Immunization History Tetanus Immunization: >5 Years Hx Influenza Vaccine This Season: Unable to Assess Medications and Allergies Active Medications: Active Medications Acetaminophen (Tylenol) 650 mg PO Q4H PRN PRN Reason: Pain 1-5 or Temp >101F Last Admin: 02/02/18 09:29 Dose: 650 mg Al Hydrox/Mg Hydrox/Simethicone (Mag-Al Plus Susp Liq) 30 ml PO Q6H PRN PRN Reason: DYSPEPSIA Al Hydroxide/Mg Hydroxide (Milk Of Magnesia Liq) 30 ml PO Q12H PRN PRN Reason: Mild Constipation Anastrozole (Arimidex) 1 mg PO DAILY [facility] Last Admin: 02/02/18 09:03 Dose: 1 mg Apixaban (Eliquis) 5 mg PO BID [facility] Last Admin: 02/02/18 09:03 Dose: 5 mg Benztropine Mesylate (Cogentin) 0.5 mg PO HS [facility] Benztropine Mesylate (Cogentin Inj) 1 mg IM Q12HR PRN PRN Reason: EPS, unable to take PO Benztropine Mesylate (Cogentin) 1 mg PO Q12HR PRN PRN Reason: EXTRA PYRAMIDAL SYMPTOMS Clindamycin HCl (Cleocin) 450 mg PO Q6HR [facility] Last Admin: 02/02/18 11:48 Dose: 450 mg Haloperidol (Haldol) 5 mg PO BID [facility] Hydroxyzine HCl (Atarax) 50 mg PO Q6H PRN PRN Reason: ANXIETY Melatonin (Melatonin) 5 mg PO HS PRN PRN Reason: INSOMNIA Allergies Allergy/AdvReac Type Severity Reaction Status Date / Time No Known Allergies Allergy Unverified 02/01/18 20:10 Home Medications Medication Instructions Recorded Confirmed Type anastrozole 1 mg PO DAILY 02/01/18 02/01/18 History apixaban [Eliquis] 5 mg PO BID 02/01/18 02/01/18 History benztropine 0.5 mg PO HS 02/01/18 02/01/18 History haloperidol 5 mg PO BID 02/01/18 02/01/18 History Physical Exam Vital signs: Vital Signs 02/01/18 19:55 02/01/18 23:00 02/02/18 06:41 Temperature 98.4 F 97.4 F L 98.3 F Pulse Rate 92 H 95 H 85 Respiratory Rate 16 18 16 Blood Pressure 140/79 141/84 H 128/69 Pulse Oximetry 97 97 95 02/02/18 10:36 Temperature Pulse Rate Respiratory Rate 18 Blood Pressure Pulse Oximetry Intake & Output 02/01/18 02/02/18 02/02/18 18:59 06:59 18:59 Weight 92.9 kg Other: Weight On Admission 92.9 kg Narrative: GENERAL: This is a well-nourished, well-developed patient, in no apparent distress. SKIN: Warm and dry. Right breast scar from previous surgery. HEENT: Normocephalic. Pupils equal round. Left periorbital edema and erythema. Left forehead edema, erythema, abscess collection. Nose without bleeding. Airway patent. NECK: Trachea midline. Supple. CARDIOVASCULAR: Regular rate and rhythm without murmurs, gallops, or rubs. RESPIRATORY: Clear to auscultation. Breath sounds equal bilaterally. No wheezes , rales, or rhonchi. GASTROINTESTINAL: Abdomen soft, non-tender, nondistended. Bowel Sounds normoactive x4. MUSCULOSKELETAL: Extremities without clubbing, cyanosis, or edema. NEUROLOGICAL: Awake and alert. Oriented to place, person. Moves all extremities. Normal speech. Hard of hearing. Assessment and Plan - Plan Patient is a 52-year-old female from [facility] with past medical history of breast cancer, DVT of the left upper arm, status post mastectomy who initially came in to the hospital for evaluation of left facial swelling and erythema. She verbalized with the fire department personnel that she has suicidal ideation she is not admitted to the psychiatry unit for further evaluation. Consulted for assistance with management of cellulitis. Suicidal ideation -Managed by psychiatry team Left facial cellulitis, abscess -Notable edema, erythema left facial area, abscess collection left forehead with small opening. -Patient was started on clindamycin in the ED p.o. -We will switch over to Ancef IV -Wound culture collected -Mupirocin left forehead -Slight leukocytosis 11.6. We will continue to monitor. Recheck labs in am DVT hx -continue Eliquis Code Status: Full code Discussed Condition With: Patient, nurse Discharge Planning: DC disposition by primary team
[2018-02-02] MEDS ORDERED: Melatonin 5 MG Tablet PO PRN (21:00)
--- NOTE | 2018-02-03 09:56 | P.PNIM ---
Subjective Interval history: Follow-up visit facial cellulitis, abscess. Patient seen and examined today. States she is doing a lot better. States she is not able to open her left eye better. States pain has significantly improved. Denies SOB/ dyspnea. Denies chest pain, palpitations, headaches, dizziness. Denies fevers, chills, n/v/d. Denies hematuria, dysuria. Physical Exam Vital signs: Vital Signs 02/02/18 10:36 02/02/18 16:29 02/03/18 06:05 Temperature 98.1 F 97.8 F Pulse Rate 99 H 88 Respiratory Rate 18 18 15 Blood Pressure 119/64 106/59 L Pulse Oximetry 97 94 L Intake & Output 02/02/18 02/03/18 02/03/18 18:59 06:59 18:59 Intake Total 100 / 100 Balance 100 / 100 Intake: IV 100 / 100 Ancef Inj 1,000 MG In NS Inj 100 / 100 100 ML @ 200 mls/hr IV.SIG Q8H [facility] Rx#:[id number] Narrative: GENERAL: This is a well-nourished, well-developed patient, in no apparent distress. SKIN: Warm and dry. Right breast scar from previous surgery. HEENT: Normocephalic. Pupils equal round. Left periorbital edema and erythema. Left forehead edema, erythema, abscess collection. Nose without bleeding. Airway patent. NECK: Trachea midline. Supple. CARDIOVASCULAR: Regular rate and rhythm without murmurs, gallops, or rubs. RESPIRATORY: Clear to auscultation. Breath sounds equal bilaterally. No wheezes , rales, or rhonchi. GASTROINTESTINAL: Abdomen soft, non-tender, nondistended. Bowel Sounds normoactive x4. MUSCULOSKELETAL: Extremities without clubbing, cyanosis, or edema. NEUROLOGICAL: Awake and alert. Oriented to place, person. Moves all extremities. Normal speech. Hard of hearing. Results - Labs CBC & Chem 7: 02/03/18 09:30 02/03/18 09:30 Microbiology 02/02/18 15:05 Abscess - Face Gram Stain - Final Assessment and Plan - Plan Patient is a 52-year-old female from [facility] with past medical history of breast cancer, DVT of the left upper arm, status post mastectomy who initially came in to the hospital for evaluation of left facial swelling and erythema. She verbalized with the fire department personnel that she has suicidal ideation she is not admitted to the psychiatry unit for further evaluation. Consulted for assistance with management of cellulitis. Suicidal ideation -Managed by psychiatry team Left facial cellulitis, abscess -Notable edema, erythema left facial area, abscess collection left forehead with small opening. -Patient was started on clindamycin in the ED p.o. -We will switch over to Ancef IV -Wound culture collected -Mupirocin left forehead -Slight leukocytosis 11.6 on admission, improved --> 7.6 DVT hx -continue Eliquis Code Status: Full code Discussed Condition With: Patient, nurse Discharge Planning: DC disposition by primary team
[2018-02-03] MEDS: Anastrozole 1 MG Tablet PO SCH (09:57)
[2018-02-03] MEDS: Haloperidol 5 MG Tablet PO SCH ×2 (09:57→21:03)
[2018-02-03] MEDS: Acetaminophen 325 MG Tablet PO PRN (09:59)
[2018-02-03 10:34] LABS: Baso % (Auto) 0.4 % (0.0-2.0); Eos # (Auto) 0.2 th/mm3 (0.0-0.4); Hematocrit 40.9 % (35.0-46.0); Hemoglobin 13.6 gm/dL (11.6-15.3); Lymph # (Auto) 1.6 th/mm3 (1.0-4.8); Lymph % (Auto) 20.7 % (9.0-44.0); Mean Corpuscular HGB Conc 33.2 % (32.0-36.0); Mean Corpuscular Hemoglobin 29.5 pg (27.0-34.0); Mean Corpuscular Volume 88.6 fL (80.0-100.0); Mean Platelet Volume 8.7 fL (7.0-11.0); Mono # (Auto) 0.6 th/mm3 (0.0-0.9); Mono % (Auto) 8.4 % (0.0-8.0); Neut # (Auto) 5.1 th/mm3 (1.8-7.7); Neut % (Auto) 67.5 % (16.0-70.0); Platelet Count 282 th/mm3 (150-450); Red Blood Count 4.62 mil/mm3 (4.00-5.30); Red Cell Distribution Width 14.4 % (11.6-17.2); White Blood Count 7.6 th/mm3 (4.0-11.0)
[2018-02-03 11:02] LABS: Albumin 3.3 g/dL (3.4-5.0); Anion Gap 10 meq/L (5-15); Aspartate Aminotransferase 30 U/L (15-37); Blood Urea Nitrogen 15 mg/dL (7-18); Calcium 9.1 mg/dL (8.5-10.1); Carbon Dioxide 29.5 meq/L (21.0-32.0); Chloride 104 meq/L (98-107); Glomerular Filtration Rate 88 mL/min (>89); Glucose,Random 90 mg/dL (74-106); Potassium 3.6 meq/L (3.5-5.1); Sodium 143 meq/L (136-145)
[2018-02-03 11:03] LABS: Alanine Aminotransferase 51 U/L (10-53)
[2018-02-03 11:05] LABS: Alkaline Phosphatase 102 U/L (45-117); Total Protein 7.6 g/dL (6.4-8.2)
--- NOTE | 2018-02-03 15:36 | P.PNPSY ---
Subjective Chief Complaint: "I want a better place to live." Remarks: Reviewed electronic medical records and discussed case with staff. Follow-up was conducted in the patient's room. Staff report that she has been cooperative. Patient states that she slept well and has had a good appetite. She advises that her face is swollen, which is obvious, and that it hurts. She seems to be in good spirits. Mental Status Examination Appearance: Appropriate Consciousness: Alert Orientation: x4 Motor Activity: Normal gait Speech: Unremarkable Language: Adequate Fund of Knowledge: Adequate Attention and Concentration: Adequate Memory: Unremarkable (Intact on clinical exam) Mood: Other ("Depressed") Affect: Blunt (Not particularly dysphoric) Thought Process & Associations: Intact, Logical, Linear Thought Content: Hallucinations Hallucination Type: Auditory (Claims auditory hallucinations as noted above. Does not appear internally stimulated.) Delusion Type: Other (It is possible that patient's concerns about facility are delusional in nature, although they may also be at least partially reality based.) Suicidal Ideation: Yes Suicidal Plan: Yes (To wander off from her facility) Suicidal Intention: No (No reported urge to hurt self on inpatient unit.) Homicidal Ideation: No Homicidal Plan: No Homicidal Intention: No Insight: Fair Judgment: Impulsive Assessment and Plan - Assessment (1) Schizophrenia Code(s): F20.9 - Schizophrenia, unspecified Status: Acute - Plan Plan: Continue with current treatment plan as ordered. Justification for Continued Inpatient Stay: Moving this patient to a less restrictive environment would likely result in decompensation. Request Healthcare Surrogate/Guardian Advocate?: No (1) Schizophrenia Qualifiers: Schizophrenia type: paranoid schizophrenia Qualified Code(s): F20.0 - Paranoid schizophrenia
[2018-02-03] MEDS ORDERED: Vancomycin Consult Pharmacy OTHER PRN (16:02)
[2018-02-03] MEDS ORDERED: Vancomycin Inj 1,500 MG in Sodium Chlor 0.9% Inj 500 ML IV.SIG SCH (17:00)
[2018-02-03] MEDS ORDERED: Vancomycin Inj 1,250 MG in Sodium Chlor 0.9% Inj 250 ML IV.SIG SCH (17:00)
[2018-02-03] MEDS: Vancomycin Inj 1,500 MG in Sodium Chlor 0.9% Inj 500 ML IV.SIG SCH (17:11)
[2018-02-04] MEDS: Anastrozole 1 MG Tablet PO SCH (08:04)
[2018-02-04] MEDS: Haloperidol 5 MG Tablet PO SCH ×2 (08:04→21:11)
[2018-02-04 09:39] LABS: Glomerular Filtration Rate Greater Than 89 mL/min (>89)
--- NOTE | 2018-02-04 11:24 | P.PNIM ---
Subjective Interval history: Follow-up visit facial cellulitis, abscess. Patient seen and examined today. States she is getting better. Denies SOB/ dyspnea. Denies chest pain, palpitations, headaches, dizziness. Denies fevers, chills, n/v/d. Denies hematuria, dysuria. Physical Exam Vital signs: Vital Signs 02/03/18 18:00 02/04/18 06:19 Temperature 98 F 97.8 F Pulse Rate 72 58 L Respiratory Rate 17 18 Blood Pressure 141/66 H 143/83 H Pulse Oximetry 93 L 97 Intake & Output 02/03/18 02/04/18 02/04/18 18:59 06:59 18:59 Intake Total 720 / 720 Balance 720 / 720 Intake: Oral 720 / 720 Narrative: GENERAL: This is a well-nourished, well-developed patient, in no apparent distress. SKIN: Warm and dry. Right breast scar from previous surgery. HEENT: Normocephalic. Pupils equal round. Left periorbital minimal edema and erythema. Left forehead minimal edema, erythema, abscess collection. Nose without bleeding. Airway patent. NECK: Trachea midline. Supple. CARDIOVASCULAR: Regular rate and rhythm without murmurs, gallops, or rubs. RESPIRATORY: Clear to auscultation. Breath sounds equal bilaterally. No wheezes , rales, or rhonchi. GASTROINTESTINAL: Abdomen soft, non-tender, nondistended. Bowel Sounds normoactive x4. MUSCULOSKELETAL: Extremities without clubbing, cyanosis, or edema. NEUROLOGICAL: Awake and alert. Oriented to place, person. Moves all extremities. Normal speech. Hard of hearing. Results - Labs CBC & Chem 7: 02/03/18 09:30 02/04/18 08:48 Laboratory Results - last 24 hr 02/04/18 08:48 Creatinine 0.57 Estimated GFR Greater than 89 Microbiology 02/02/18 15:05 Abscess - Face Gram Stain - Final 02/02/18 15:05 Abscess - Face Wound Culture - Preliminary S. aureus MRSA Assessment and Plan - Plan Patient is a 52-year-old female from [facility] with past medical history of breast cancer, DVT of the left upper arm, status post mastectomy who initially came in to the hospital for evaluation of left facial swelling and erythema. She verbalized with the fire department personnel that she has suicidal ideation she is not admitted to the psychiatry unit for further evaluation. Consulted for assistance with management of cellulitis. Suicidal ideation -Managed by psychiatry team Left facial cellulitis, abscess -Notable edema, erythema left facial area, abscess collection left forehead with small opening. -Patient was started on clindamycin in the ED p.o. -Ancef IV, switched to VANCO IV -Wound culture MRSA, follow up susceptibility -Mupirocin left forehead -Slight leukocytosis 11.6 on admission, improved --> 7.6 -May switch to PO when improved DVT hx -continue Eliquis Code Status: Full Code Discussed Condition With: Patient, nursing Discharge Planning: DC disposition by primary team
--- NOTE | 2018-02-04 13:48 | P.PNPSY ---
Subjective Chief Complaint: "I want a better place to live." Remarks: The patient was seen today for psychiatric reevaluation. She was found sleeping , difficult to arouse, one awakened, she is irritable, but cooperative. She reports that she has been doing fine, but having pain in her face. She reports that she has been hearing voices occasionally, but "voices telling me to take my medications and to be nice". Has been compliant on medications, no significant side effects. Mental Status Examination Appearance: Appropriate Consciousness: Alert Orientation: x4 Motor Activity: Normal gait Speech: Unremarkable Language: Adequate Fund of Knowledge: Adequate Attention and Concentration: Adequate Memory: Unremarkable (Intact on clinical exam) Mood: Other ("Depressed") Affect: Blunt (Not particularly dysphoric) Thought Process & Associations: Intact, Logical, Linear Thought Content: Hallucinations Hallucination Type: Auditory (Claims auditory hallucinations as noted above. Does not appear internally stimulated.) Delusion Type: Other (It is possible that patient's concerns about facility are delusional in nature, although they may also be at least partially reality based.) Suicidal Ideation: Yes Suicidal Plan: Yes (To wander off from her facility) Suicidal Intention: No (No reported urge to hurt self on inpatient unit.) Homicidal Ideation: No Homicidal Plan: No Homicidal Intention: No Insight: Fair Judgment: Impulsive Assessment and Plan - Assessment (1) Schizophrenia Code(s): F20.9 - Schizophrenia, unspecified Status: Acute - Plan Plan: Patient will continue current psychotropic regimen. I will order Tylenol 650 mg every 8 hours as needed pain her face Justification for Continued Inpatient Stay: Patient has an elevated risk to decompensate at a low level of care per Request Healthcare Surrogate/Guardian Advocate?: No (1) Schizophrenia Qualifiers: Schizophrenia type: paranoid schizophrenia Qualified Code(s): F20.0 - Paranoid schizophrenia
[2018-02-04] MEDS: Vancomycin Inj 1,500 MG in Sodium Chlor 0.9% Inj 500 ML IV.SIG SCH ×2 (21:18→21:19)
[2018-02-05] MEDS ORDERED: Pharmacy Ordered Lab Info OTHER ONE (05:45)
[2018-02-05] MEDS: Vancomycin Inj 1,500 MG in Sodium Chlor 0.9% Inj 500 ML IV.SIG SCH (05:59)
[2018-02-05] MEDS: Haloperidol 5 MG Tablet PO SCH (08:25)
[2018-02-05] MEDS: Anastrozole 1 MG Tablet PO SCH (08:25)
--- NOTE | 2018-02-05 10:13 | P.PN ---
Subjective Interval history: Follow up visit on patient with facial cellulitis. Patient seen and examined. Patient reports her infection is much better. She denies any fever or chills. She denies any visual difficulties. She denies any headache, numbness/tingling or weakness. Physical Exam Vital signs: Vital Signs 02/04/18 18:05 02/05/18 06:11 Temperature 97.6 F 98.6 F Pulse Rate 67 81 Respiratory Rate 18 Blood Pressure 118/70 120/78 Pulse Oximetry 98 95 Intake & Output 02/04/18 02/05/18 02/05/18 18:59 06:59 18:59 Intake Total 240 / 240 515 / 515 720 / 720 Balance 240 / 240 515 / 515 720 / 720 Weight 91 kg Intake: IV 515 / 515 Vancomycin Inj 1,500 MG In NS 515 / 515 Inj 500 ML @ 250 mls/hr IV.SIG Q12H [facility] Rx#:[id number] Oral 240 / 240 720 / 720 Narrative: GENERAL: This is a well-nourished, well-developed female patient, in no apparent distress. Awake and alert. SKIN: Warm and dry. Right breast scar from previous surgery. HEENT: Normocephalic. Pupils equal round. Left periorbital minimal edema and erythema. Left forehead minimal edema and erythema, no abscess appreciated. No drainage noted. Nose without bleeding. Airway patent. NECK: Trachea midline. Supple. CARDIOVASCULAR: Regular rate and rhythm without murmurs, gallops, or rubs. RESPIRATORY: Clear to auscultation. Breath sounds equal bilaterally. No wheezes , rales, or rhonchi. GASTROINTESTINAL: Abdomen soft, non-tender, nondistended. BS x 4. MUSCULOSKELETAL: Extremities without clubbing, cyanosis, or edema. NEUROLOGICAL: Awake and alert. Oriented to place, person. Moves all extremities spontaneously. Normal speech. Hard of hearing. PSYCHIATRIC: Calm and cooperative. Results - Labs CBC & Chem 7: 02/03/18 09:30 02/04/18 08:48 Microbiology 02/02/18 15:05 Abscess - Face Gram Stain - Final 02/02/18 15:05 Abscess - Face Wound Culture - Final S. aureus MRSA Assessment and Plan - Plan 52-year-old female from [facility] with past medical history of breast cancer , DVT of the left upper arm, status post mastectomy who initially came in to the hospital for evaluation of left facial swelling and erythema. She verbalized with the fire department personnel that she has suicidal ideation she is not admitted to the psychiatry unit for further evaluation. Consulted for assistance with management of cellulitis. Suicidal ideation -Managed by psychiatry team Left facial cellulitis, abscess, much improved Notable edema, erythema left facial area, abscess collection left forehead with small opening. -Patient was started on clindamycin in the ED p.o. -Ancef IV, switched to VANCO IV -Wound culture MRSA, susceptibilities noted -Continue Mupirocin left forehead -Slight leukocytosis 11.6 on admission, improved --> 7.6 -d/c IV Vanco. Switch to po Clindamycin. DVT hx -continue Eliquis Patient appears stable from hospitalist standpoint. [facility] will sign off. Please reconsult if needed. Discussed Condition With: patient, nursing staff Discharge Planning: discharge plan per primary team
[2018-02-05] MEDS ORDERED: Haloperidol Decanoate Inj 50 MG/ML Ampul IM ONE (10:22)
--- NOTE | 2018-02-05 10:31 | P.DSPSY ---
Psychiatry Discharge Summary Inpatient Psychiatric care?: Yes Advance Directives: No Mental Health Advance Directive: No Health Care Proxy: No - Admission Admission Date: February 01, 2018 22:20 - Admission Diagnosis (1) Schizophrenia Code(s): F20.9 - Schizophrenia, unspecified Brief History: Ms. Pelletier is a 52-year-old female with a history of schizophrenia who presented to the emergency department voluntarily complaining of facial swelling, found to have possible cellulitis. Patient reportedly believes that she acquired this cellulitis secondary to unsanitary living conditions at her assisted living facility and told the ED provider "she was hoping to be kept in the inpatient psychiatry unit for a few days and then dispositioned into a different [facility]." Apparently she also verbalized some suicidal ideation to the fire department per ED provider notes. Patient is well-known to the psychiatric service here from multiple previous psychiatric hospitalizations. She was most recently discharged from an extended hospitalization under my care in October of this year. Electronic medical record reviewed. Patient seen and examined with counselor and nurse. Chart reviewed. Case discussed with nursing staff and with counselor. On my examination today, the patient greets me with, "hello, I'm back." She tells me that she came in because "I have an infection in my eye from all the urine in the house." She elaborates to say that it "comes from the pee and the poop and the phlegm" that is in the facility where she resides. She accuses one resident in particular, Christen, of releasing these fluids into the environment and of "rubbing her butt on the chairs." She has no homicidal ideation. She further says that "the water stinks." She says that as a consequence of her current living situation "I'm very depressed, upset and suicidal." When I ask her to elaborate her suicide plan, she says that she will wander off from her facility and feels that this would be a suicidal action because she cannot take care of herself. She claims to "hear voices, people talking, people giving me info about what's going on." No command auditory hallucinations to hurt self or others. She tells me "I want another place to live on the bus line." Remainder of the psychiatric ROS is negative. No acute physical complaints. Past psychiatric history: The patient has a history of schizophrenia. She obtains outpatient psychiatric care at [facility]. Most recent psychiatric admission was reportedly here at [facility]. She denies a history of suicide attempts. Family history: The patient reports that her brother has substance use issues. Chemical dependency history: Patient denies any abuse of drugs or alcohol. She is a former smoker. Social history: The patient resides in an [facility]. She has "13-1/2 years" of schooling. 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 She is presently disabled. She has not recently spoken with her daughter saying that daughter will not speak with her. She denies any legal issues. Denies any access to guns or firearms. She believes in God but does not go to judaism she tells me. No reported trauma history. I called over to [facility] to get the most recent medication list. Patient receives Haldol Decanoate injections 100 mg IM, last on 01/16/2018. She also receives Cogentin 0.5 mg at bedtime. Tobacco Use In Past 30 Days: No How Often Do You Have a Drink Containing Alcohol: Never Hospital Course: Patient was admitted to a locked, inpatient psychiatric unit. A general medical consultation was obtained. Appropriate precautions were in place throughout patient's hospital stay. Patient was seen and examined on the unit by psychiatry and also visited by counselor. Psychotropic medications were adjusted. Patient was administered additional Haldol decanoate with plans to titrate Haldol decanoate dose to 150 mg IM when next due at the beginning of February. Counselor has confirmed that the patient may return to her facility. On the day of discharge: Patient seen and examined with nurse. Chart reviewed. Case discussed with nursing staff. On my examination today, the patient's facial swelling from cellulitis is significantly improved. She is agreeable to returning to her facility today. She does not verbalize any concerns about the facility as she had at admission. She denies any suicidal or homicidal ideation, intent or plan. I can elicit no depressive or hypomanic/ manic symptoms. She denies any audiovisual hallucinations. I can elicit no delusional material. She denies any side effects from medications. She is agreeable to receiving booster dose of Haldol Decanoate today. No physical complaints. Suicide and violence risk assessment on day of discharge both suggest lower imminent risk from mental illness, and the patient's level of function is adequate for planned level of outpatient care. Patient has maximized benefit from this inpatient psychiatric hospital stay. She will be discharged back to facility today with psychiatric follow-up as arranged by counselor. Patient is also to follow up with primary care. I have counseled the patient to return to the psychiatric emergency room for any concerning symptoms as part of a general safety plan. - Discharge Discharge Date: 02/05/18 - Discharge Diagnosis (1) Schizophrenia Diagnosis: Principal (Stabilized) Code(s): F20.9 - Schizophrenia, unspecified Status: Acute Discharge Disposition: Assisted Living Facility - Discharge Instructions Discharge Diet: Regular Diet Activities You Can Perform: Weight Bearing As Tolerat - Discharge Time <= 30 minutes Mental Status Examination Appearance: Appropriate Consciousness: Alert Orientation: x4 Motor Activity: Other (No hand tremor, no dystonia, no dyskinesia, no other motor abnormalities noted.) Speech: Unremarkable Language: Adequate Fund of Knowledge: Adequate Attention and Concentration: Adequate Memory: Unremarkable (Intact on clinical exam) Mood: Appropriate Affect: Blunt Thought Process & Associations: Intact, Logical, Goal directed, Linear Thought Content: Appropriate Hallucination Type: None Delusion Type: None Suicidal Ideation: No Suicidal Plan: No Suicidal Intention: No Homicidal Ideation: No Homicidal Plan: No Homicidal Intention: No Mental Status Exam Remarks: Insight and judgment are likely chronically fair to poor. Discharge/Advance Care Plan - Results Vital Signs: Last Vital Signs Temp 98.6 F 02/05/18 06:11 Pulse 81 02/05/18 06:11 Resp 18 02/05/18 06:11 BP 120/78 02/05/18 06:11 Pulse Ox 95 02/05/18 06:11 Lab Results: Laboratory Results TSH 1.050 uIU/mL (0.358-3.740) 02/01/18 20:00 Summary of Procedures: None done Pending Results: None - Medications Number of antipsychotic medications at discharge: 1 (Haldol PO and Dec) - Discharge Care Plan Goals to Promote Your Health: * To prevent worsening of your condition and complications * To maintain your health at the optimal level Directions to Meet Your Goals: Take your medications as prescribed Follow your dietary instruction Follow activity as directed Keep your appointments as scheduled Take your immunizations and boosters as scheduled If your symptoms worsen call your PCP, if no PCP go to Urgent Care Center or Emergency Room For 02/01 questions related to your inpatient stay or results of tests pending at discharge, please contact Dr. Fabrice Bryant MD at Smoking is Dangerous to Your Health. Avoid second hand smoking (1) Schizophrenia Qualifiers: Schizophrenia type: paranoid schizophrenia Qualified Code(s): F20.0 - Paranoid schizophrenia (1) Schizophrenia Qualifiers: Schizophrenia type: paranoid schizophrenia Qualified Code(s): F20.0 - Paranoid schizophrenia
[2018-02-05] MEDS ORDERED: Lactobacillus Acidophilus/L. Spores Tablet PO SCH (13:00)
== END 2018-02-05 13:30 ==
LOC: NEPE 19:41 → NEDA 22:20 → H260 02-02 00:32 → H4EA 02-02 20:26
PROVIDERS: ADMIT Psychiatry & Neurology Psychiatry; ATTEND Psychiatry & Neurology Psychiatry